=== PATIENT | male | born 1950 | race Hispanic/Latino ===

== ENCOUNTER 2017-12-12 06:52 | Inpatient (IN) | payer MEDICARE ==
[2017-12-12 07:04] VITALS: BMI 29.2
--- NOTE | 2017-12-12 07:56 | ED PDOC ---
Arrival/HPI - General Chief Complaint: Lower Extremity Problem/Injury Time Seen by Provider: 12/12/17 07:18 Historian: Patient, Partner () - History of Present Illness Narrative History of Present Illness (Text): 12/12/17 07:40 A 67 year old male, whose past medical history includes hypertension, questionable COPD, CHF (2 water pills daily), pacemaker, and atrial fibrillation (took Coumadin, switched to Eliquis), whom is accompanied by , presents to the emergency department complaining of right leg redness and swelling for 2 weeks. Patient reports having fallen 11/29/17. Had noticed drainage to right leg 2 weeks ago. Patient experiences pain when ambulating, and has recently had diarrhea. Patient's notes patient experiences shortness of breath at baseline and had pacemaker readjusted yesterday. Patient denies any fever, chills, nausea, vomiting, myalgias, or any other complaints at this time. PMD: Dr. Knott [place] Head Counselor: Dr. Quijano Time/Duration: > week (2 weeks) Symptom Course: Unchanged Past Medical History - Provider Review Nursing Documentation Reviewed: Yes - Cardiac Hx Congestive Heart Failure: Yes Hx Hypertension: Yes - Psychiatric Hx Substance Use: No - Surgical History Hx Orthopedic Surgery: Yes (LEFT HIP, RIGHT KNEE) - Anesthesia Hx Anesthesia Reactions: No - Suicidal Assessment Feels Threatened In Home Enviroment: No Family/Social History - Physician Review Nursing Documentation Reviewed: Yes Family/Social History: No Known Family HX Smoking Status: Former Smoker Hx Alcohol Use: Yes Frequency of alcohol use: Daily Hx Substance Use: No Allergies/Home Meds Allergies/Adverse Reactions: Allergies Penicillins Allergy (Mild, Verified 12/12/17 07:48) ANAPHYLAXIS Home Medications: Home Meds Medication Instructions Recorded Confirmed Carvedilol 25 mg PO BID 08/11/14 12/12/17 Valsartan-Hydrochlorothiazide 12.5 1 tab PO DAILY 08/11/14 12/12/17 mg-320 mg Apixaban [Eliquis] 5 mg PO DAILY 12/12/17 12/12/17 Cholecalciferol [Vitamin D 1000 IU] 50,000 mg PO DAILY 12/12/17 12/12/17 Furosemide [Lasix] 40 mg PO BID 12/12/17 12/12/17 oxyCODONE/Acetaminophen [Percocet 5 mg PO TID PRN 12/12/17 12/12/17 5/325 mg Tab] Review of Systems - Physician Review All systems were reviewed & negative as marked: Yes - Review of Systems Constitutional: absent: Fevers, Night Sweats Gastrointestinal: Diarrhea. absent: Nausea, Vomiting Musculoskeletal: Other (bilateral leg swelling and redness (ulcer drainage to right leg; ulcer to left leg s/p injury)). absent: Myalgias Physical Exam Vital Signs Reviewed: Yes Vital Signs Temp Pulse Resp BP Pulse Ox 12/12/17 09:50 97.9 F 72 16 106/70 100 12/12/17 07:08 97 F L 92 H 16 108/50 L 98 Temperature: Afebrile Blood Pressure: Normal Pulse: Regular Respiratory Rate: Normal Appearance: Positive for: Well-Appearing Pain Distress: None Mental Status: Positive for: Alert and Oriented X 3 - Systems Exam Head: Present: Atraumatic, Normocephalic Pupils: Present: PERRL Extroacular Muscles: Present: EOMI Mouth: Present: Moist Mucous Membranes Respiratory/Chest: Present: Clear to Auscultation, Good Air Exchange. No: Respiratory Distress, Accessory Muscle Use Cardiovascular: Present: Regular Rate and Rhythm, Normal S1, S2. No: Murmurs Abdomen: No: Tenderness, Distention, Peritoneal Signs Back: Present: Normal Inspection. No: Midline Tenderness Upper Extremity: Present: Normal Inspection. No: Cyanosis, Edema Lower Extremity: Present: Edema (bilaterally lower legs), NORMAL PULSES (+2 pedal pulses), Tenderness (warmth tenderness to right lower leg), Erythema ( right lower leg), Other (1 1/2 cm ulcer to right riggins; heeled ulcer to left leg) Neurological: Present: GCS=15, CN II-XII Intact, Speech Normal Skin: Present: Warm Psychiatric: Present: Alert, Oriented x 3, Normal Insight, Normal Concentration Medical Decision Making ED Course and Treatment: 12/12/17 07:45 Impression: 67 year old male with right leg swelling and redness. Differential Diagnosis included but are not limited to: Cellulitis r/o DVT r/o Fracture Plan: -- EKG -- Chest X-ray -- Lower Extremity Ultrasound -- Right Tibia Fibula X-Ray -- Labs -- Blood Culture -- Urine Culture -- Urinalysis -- Vancomycin -- Venous Blood Gas -- Reassess and disposition Progress Notes: EKG: Ordered, reviewed, and independently interpreted the EKG. Rate : 70 BPM Rhythm : NSR Interpretation : No ST-segment elevations or depressions, no T-wave inversions, normal intervals. Comparison : No previous EKG for comparison. 12/12/17 09:11 Labs reviewed. VBG shows elevated pCO2 most likely to due COPD and retention. Patient is not in respiratory distress and is not complaining of SOB. 12/12/17 09:18 Lower Extremity Ultrasound is negative. 12/12/2017 09:41 Right Tibia Fibula X-Ray IMPRESSION: No fracture or dislocation. Intact appearing total knee prosthesis. Subcutaneous reiculated edema consistent with lymphedema-correlate clinically. Dictator: Denise Simpson MD 12/12/17 09:53 Patient's labs reviwed. WBC nl. Patient's US negative for DVT. No fracture on xray. Considering pt has multiple medical comorbidites and a right cellulitis of his leg with weeping wound, I would recommend IV antibiotics. Case discussed with Dr. Robledo, whom states to admit patient to med surgical floor. - Lab Interpretations Lab Results: 12/12/17 08:00 12/12/17 08:00 Lab Results 12/12/17 08:00: Sodium 134, Chloride 87 L, Potassium 3.6, Carbon Dioxide 39 H, Anion Gap 12, BUN 29 H, Creatinine 1.1, Est GFR ( Amer) > 60, Est GFR ( Non-Af Amer) > 60, Random Glucose 114 H, Calcium 8.9, Phosphorus 3.1, Magnesium 2.3 H, Total Bilirubin 1.2, AST 37, ALT 43, Alkaline Phosphatase 144 H, Total Protein 6.3, Albumin 3.3, Globulin 2.9, Albumin/Globulin Ratio 1.1 12/12/17 08:00: pO2 21 L, VBG pH 7.36, VBG pCO2 77.0 H*, VBG HCO3 43.5 H, VBG Total CO2 45.9 H, VBG O2 Sat (Calc) 34.4 L, VBG Base Excess 14.3 H, VBG Potassium 3.8, Sodium 130.0 L, Chloride 90.0 L, Glucose 108, Lactate 1.3, FiO2 21.0, Venous Blood Potassium 3.8 12/12/17 08:00: Urine Color Yellow, Urine Appearance Clear, Urine pH 6.0, Ur Specific [place] 1.010, Urine Protein Trace H, Urine Glucose (UA) Negative, Urine Ketones Negative, Urine Blood Negative, Urine Nitrate Negative, Urine Bilirubin Negative, Urine Urobilinogen 1.0 H, Ur Leukocyte Esterase Negative, Urine RBC Negative, Urine WBC 1 - 3, Ur Epithelial Cells 1 - 3, Urine Bacteria Few 12/12/17 08:00: PT 17.6 H, INR 1.52 H, APTT 33.5 12/12/17 08:00: WBC 9.9, RBC 4.38, Hgb 13.6 L, Hct 41.9 L, MCV 95.7, MCH 31.1, MCHC 32.5, RDW 14.6 H, Plt Count 198, MPV 10.0, Gran % 86.6 H, Lymph % (Auto) 7.2 L, [place] % (Auto) 5.7, Eos % (Auto) 0.4 L, Baso % (Auto) 0.1, Gran # 8.60 H, Lymph # (Auto) 0.7 L, [place] # (Auto) 0.6, Eos # (Auto) 0.0, Baso # (Auto) 0.01 I have reviewed the lab results: Yes - RAD Interpretation Radiology Orders: 12/12/17 08:03 CHEST PORTABLE [RAD] Stat 12/12/17 08:05 TIBIA FIBULA RIGHT [RAD] Stat DUPLEX LOWER EXTRM VEIN BILAT [US] Stat - Medication Orders Current Medication Orders: Discontinued Medications Vancomycin HCl (Vancomycin 1gm) 1 gm in 250 mls @ 167 mls/hr IVPB STAT STA PRN Reason: Protocol Stop: 12/12/17 09:32 Last Admin: 12/12/17 08:17 Dose: 167 mls/hr eMAR Start Stop Document 12/12/17 08:17 MS (Rec: 12/12/17 08:17 MS [id number]) Intravenous Solution Start Date 12/12/17 Start Time 08:17 - Scribe Statement The provider has reviewed the documentation as recorded by the Rocio Phelps Provider Scribe Attestation: All medical record entries made by the Scribe were at my direction and personally dictated by me. I have reviewed the chart and agree that the record accurately reflects my personal performance of the history, physical exam, medical decision making, and the department course for this patient. I have also personally directed, reviewed, and agree with the discharge instructions and disposition. Disposition/Present on Arrival - Present on Arrival Any Indicators Present on Arrival: No History of DVT/PE: No History of Uncontrolled Diabetes: No Urinary Catheter: No History of Decub. Ulcer: No History Surgical Site Infection Following: None - Disposition Have Diagnosis and Disposition been Completed?: Yes Diagnosis: Cellulitis Disposition: HOSPITALIZED Disposition Time: 09:13 Patient Plan: Admission Patient Problems: Current Active Problems Problem Status Onset Cellulitis Acute Condition: FAIR
[2017-12-12] MEDS ORDERED: Vancomycin 1gm in NS 250ml 1 GM/250 ML BAG IVPB STA (08:03)
[2017-12-12 08:35] LABS: VENOUS BLOOD GAS BASE EXCESS 14.3 mmol/L (0.0-2.0); VENOUS BLOOD GAS PO2 21 mm/Hg (30-55); VENOUS BLOOD PH 7.36 (7.32-7.43)
[2017-12-12 08:38] LABS: BASO # 0.01 K/mm3 (0.0-2.0); BASO % 0.1 % (0.0-3.0); EOS % 0.4 % (1.5-5.0); GRAN # 8.6 (1.4-6.5); GRAN % 86.6 % (50.0-68.0); HEMOGLOBIN 13.6 g/dL (14.0-18.0); LYMPH # 0.7 (1.2-3.4); LYMPH % 7.2 % (22.0-35.0); MEAN CELL VOLUME 95.7 fl (80.0-105.0); MEAN CORPUSCULAR HEMOGLOBIN 31.1 pg (25.0-35.0); MEAN CORPUSCULAR HGB CONC 32.5 g/dl (31.0-37.0); MONO # 0.6 (0.1-0.6); MONO % 5.7 % (1.0-6.0); RBC 4.38 10^6/uL (3.5-6.1); RED CELL DISTRIBUTION WIDTH 14.6 % (11.5-14.5); URINE APPEARANCE CLEAR (CLEAR); URINE BILIRUBIN NEGATIVE (NEGATIVE); URINE BLOOD NEGATIVE (NEGATIVE); URINE COLOR YELLOW (YELLOW); URINE GLUCOSE (UA) NEGATIVE (NEGATIVE); URINE LEUKOCYTE ESTERASE NEGATIVE Leu/uL (NEGATIVE); URINE PROTEIN TRACE mg/dL (<30 mg/dL); WHITE BLOOD COUNT 9.9 10^3/ul (4.5-11.0)
[2017-12-12 08:45] LABS: INR 1.52 (0.93-1.08); PARTIAL THROMBOPLASTIN TIME 33.5 Seconds (25.1-36.5); PROTHROMBIN TIME 17.6 SECONDS (9.4-12.5)
[2017-12-12 08:47] LABS: URINE BACTERIA FEW (NEG); URINE RBC NEGATIVE /hpf (0-2)
[2017-12-12 08:54] LABS: ALB/GLOB RATIO 1.1 (1.1-1.8); ALBUMIN 3.3 g/dL (3.0-4.8); ALT/SGPT 43 U/L (7-56); AST/SGOT 37 U/L (17-59); BLOOD UREA NITROGEN 29 mg/dL (7-21); CALCIUM 8.9 mg/dL (8.4-10.5); GFR AFRICAN-AMERICAN > 60; GFR NON-AFRICAN AMERICAN > 60
--- NOTE | 2017-12-12 09:43 | RAD ---
PROCEDURE: Radiographs of the right tibia and fibula. HISTORY: fall r/o fx COMPARISON: None available. TECHNIQUE: Frontal and lateral views obtained. FINDINGS: BONES: No fracture or destructive lesion. Total knee arthroplasty status noted -prosthesis appears intact. JOINT SPACES: Unremarkable. OTHER FINDINGS: Diffuse subcutaneous reticulated edema distal thigh and upper leg - diffuse appearing. Atherosclerotic vascular calcifications present. . IMPRESSION: No fracture or dislocation. Intact appearing total knee prosthesis. Subcutaneous reticulated edema consistent with lymphedema -correlate clinically
--- NOTE | 2017-12-12 09:53 | RAD ---
HISTORY: Sepsis Patient COMPARISON: No prior. FINDINGS: LUNGS: Study is an apical lordotic view. Asymmetrical opacity projects over the lateral right mid lung zone. There is overlying right rib fractures here pole probably chronic appearing for subacute to chronic appearing contiguous pleural parenchymal thickening reaction associated with these right rib fractures is a consideration. No comparison studies to assess stability available. A concomitant right infiltrate here not excluded in this patient with history of sepsis. There is some suggestion of possible old right rib fractures here PLEURA: No significant pleural effusion identified, no pneumothorax apparent. Right mid lung zone or parenchymal thickening reaction status of right rib fractures detailed above noted. CARDIOVASCULAR: Cardiomegaly. AICD pacemaker device in place. Pulmonary vasculature probably top-normal. OSSEOUS STRUCTURES: Multiple right rib fractures -per lateral cortices -trace cortical offset suggested precise chronicity of these fractures not known. Correlate with history VISUALIZED UPPER ABDOMEN: Normal. OTHER FINDINGS: None. IMPRESSION: Cardiomegaly pulmonary vasculature probably top-normal. AICD pacemaker device in place and unremarkable appearing. Right lateral mid lung zone opacity projects over multiple right rib fractures - likely in part subacute and/or chronic. Contiguous right pleural reaction/ thickening associated with these fractures is inferred. Additional concomitant pathology here like infiltrate not excluded. No comparison studies available. . If further evaluation is needed consider CT of the chest
[2017-12-12 10:06] LABS: ARTERIAL BLOOD GAS HCO3 34.2 mmol/L (21-28); ARTERIAL BLOOD GAS HEMOGLOBIN 12.6 g/dL (11.7-17.4); ARTERIAL BLOOD GAS O2 CAPACITY 17.2 mL/dl (16-24); ARTERIAL BLOOD GAS O2 CONTENT 16.7 ML/dl (15-23); ARTERIAL BLOOD GAS PCO2 47 mm/Hg (35-45); ARTERIAL BLOOD GAS PH 7.47 (7.35-7.45); ARTERIAL BLOOD GAS TCO2 35.6 mmol.L (22-28)
--- NOTE | 2017-12-12 11:29 | US ---
PROCEDURE: Bilateral lower extremity venous duplex Doppler. HISTORY: leg swelling r/o dvt COMPARISON: None available. TECHNIQUE: Bilateral common femoral, superficial femoral, popliteal and posterior tibial veins were evaluated. Flow was assessed with color Doppler, compressibility, assessment of phasic flow and augmentation response. FINDINGS: COMMON FEMORAL VEIN: Right CFV: Unremarkable. Left CFV: Unremarkable. SUPERFICIAL FEMORAL VEIN: Right SFV: Unremarkable. Left SFV: Unremarkable. POPLITEAL VEIN: Right Popliteal: Unremarkable. Left Popliteal: Unremarkable. POSTERIOR TIBIAL VEIN: Right PTV/Peroneal Vein: Unremarkable. Left PTV: Unremarkable. OTHER FINDINGS: None. IMPRESSION: No evidence of deep venous thrombosis.
[2017-12-12] MEDS: Oxycodone/Acetaminophen 5/325 mg Tab PO PRN (18:58)
--- NOTE | 2017-12-12 19:05 | CARD ---
APPROVED REPORT EKG Measurement Heart [id number] <Conclusion> Electronic ventricular pacemaker
--- NOTE | 2017-12-12 19:19 | CARD ---
APPROVED REPORT EKG Measurement Heart [id number] <Conclusion> Electronic ventricular pacemaker
[2017-12-13] MEDS: Oxycodone/Acetaminophen 5/325 mg Tab PO PRN ×4 (00:47→22:19)
--- NOTE | 2017-12-13 09:47 | CARD ---
APPROVED REPORT EXAM: Two-dimensional and M-mode echocardiogram with Doppler and color Doppler. Other Information Quality : AverageRhythm : INDICATION Cardiomyopathy Congestive Heart Failure , CHF/CELLULITIS 2D DIMENSIONS RVDd4.6 (2.9-3.5cm)Left Atrium (2D)4.5 (1.6-4.0cm) IVSd1.1 (0.7-1.1cm)LVDd6.8 (3.9-5.9cm) PWd1.1 (0.7-1.1cm)LVDs6.1 (2.5-4.0cm) FS (%) 9.5 %LVEF (%)20.0 (>50%) M-Mode DIMENSIONS Aortic Root3.50 (2.2-3.7cm)Aortic Cusp Exc.1.70 (1.5-2.0cm) Aortic Valve AoV Peak Mqwyqsnk285.0cm/sAoV VTI33.4cmAO Peak GR.12mmHg LVOT Peak Hvgykbiy96.0cm/sLVOT VTI13.90cmAO Mean GR.7mmHg Mitral Valve E/A ratio0.0 TDI E/Lateral E'0.0E/Medial E'0.0 Pulmonary Valve PV Peak Nsrbtkpp51.8cm/sPV Peak Grad.3mmHg Tricuspid Valve TR Peak Vsboxkyw705ma/sRAP [id number] Peak Gr.53mmHg [id number] LEFT VENTRICLE The Left Ventricle is moderately dilated. There is normal left ventricular wall thickness. Left ventricle systolic function is severely impaired. The Ejection Fraction is - 20% There is severe global hypokinesis. RIGHT VENTRICLE The right ventricle is mildly to moderately dilated. There is a pacemaker lead in the right ventricle. ATRIA The left atrium is moderately dilated. The right atrium is moderately dilated. The interatrial septum is intact with no evidence for an atrial septal defect. AORTIC VALVE The aortic valve is mildly to moderately calcified. MITRAL VALVE The mitral valve is normal in structure. Mitral regurgitation is mild. TRICUSPID VALVE The tricuspid valve is normal in structure. There is severe tricuspid regurgitation. There is severe pulmonary hypertension. PULMONIC VALVE The pulmonary valve is normal in structure. GREAT VESSELS The aortic root is normal in size. PERICARDIAL EFFUSION There is no pericardial effusion. <Conclusion> The Left Ventricle is moderately dilated. There is normal left ventricular wall thickness. Left ventricle systolic function is severely impaired. The Ejection Fraction is - 20% There is severe global hypokinesis. The aortic valve is mildly to moderately calcified. Aortic sclerosis vs. mild . Mitral regurgitation is mild. There is severe tricuspid regurgitation. There is severe pulmonary hypertension.
[2017-12-13] MEDS: Linezolid 600 mg in D5W 300 ml 600 MG/300 ML BAG IVPB SCH ×2 (11:01→22:20)
[2017-12-13] MEDS: Potassium Chloride 20 mEq ER Tab PO SCH ×2 (11:03→17:09)
[2017-12-13] MEDS: Albuterol 0.083% Inhal Sol (2.5 mg/3 mL) UD INH SCH ×3 (11:17→21:40)
--- NOTE | 2017-12-13 11:45 | CON ---
DATE: 12/13/2017 INDICATIONS: Lower extremity swelling with weeping, possibly infected wounds; congestive cardiomyopathy. HISTORY OF PRESENT ILLNESS: This is a 67-year-old man, known to me, who presented to the office on the with a swollen worsening right leg which was reddened and had fluid draining from breaks in the skin. He was advised admission and came to the hospital on the . He is admitted through the emergency room. He was cultured and received a dose of vancomycin. Wounds have been bandaged. There is no chest pain, shortness of breath. He does note chronic dyspnea on exertion. There is no orthopnea, PND, syncope, presyncope, lightheadedness, dizziness, vertigo, palpitation. There is no fever, chills, cough, sputum production, hemoptysis, abdominal pain, nausea, vomiting, diarrhea, constipation, melena. PAST MEDICAL HISTORY: Notable for congestive cardiomyopathy, possibly alcohol related; chronic AFib, currently on Eliquis; hypertension; prostate cancer with seed implants. He has an ICD implant. He has a total knee replacement, cataracts, erectile dysfunction. He continues to drink beer intermittently. There is no history of rheumatic fever, myocardial infarction, stroke, TIA, diabetes, or gout. MEDICATIONS AT THE TIME OF ADMISSION: Include Coreg, valsartan and HCT, Eliquis, furosemide, Percocet, vitamin D and amiodarone. ALLERGIES: HE NOTES AN ALLERGY TO PENICILLIN. SOCIAL HISTORY: He lives at home. He is retired. He is ambulatory, but limited. He does not smoke. He continues to drink beer, but much less than in the past. FAMILY HISTORY: Noncontributory. REVIEW OF SYSTEMS: A 10-point review of systems is otherwise unremarkable except as noted above. PHYSICAL EXAMINATION GENERAL: He is a well-developed male, in no acute distress, lying in bed on 5R. He was also seen in the emergency room yesterday. VITAL SIGNS: Today include pulse of 78, blood pressure 113/68, afebrile, respirations 20, O2 sat 96% to 97% on room air. HEENT: Reveals some neck vein distention. No thyromegaly, no carotid bruit appreciated. Mucous membranes moist. Conjunctivae pink. NECK: Supple. LUNGS: Lung kennedy, a few scattered rhonchi. HEART: Reveals normal first and second heart sounds. ABDOMEN: Soft. Bowel sounds present. No mass, organomegaly, tenderness, rebound or guarding. EXTREMITIES: Revealed a swollen reddened right leg with serous fluid from breaks in the skin. There is a superficial non-healed wound on the left riggins. NEUROLOGIC: He was awake, alert, and oriented. PSYCHIATRIC: Normal as to mood and affect. SKIN: Warm and dry. LABORATORY AND IMAGING: A chest x-ray revealed cardiomegaly, etc. An EKG demonstrates ventricular pacing. Extremity ultrasound revealed no DVT. X-ray of the leg revealed no fracture or dislocation, etc. White count normal, hemoglobin of 13.6, hematocrit 41.9, platelet count 198,000. PT 17.6, INR 1.52, PTT 33.5. Blood gas is noted. Electrolytes, BUN and creatinine unremarkable. Blood sugar 114, magnesium 2.3. LFTs unremarkable. Procalcitonin elevated at 1.33. Urinalysis noted. IMPRESSION: Richard Rajput is a 67-year-old man with congestive cardiomyopathy, chronic atrial fibrillation, implantable cardioverter defibrillator implant, history of prostate cancer and hypertension with a total knee replacement, admitted with a swollen right leg with serous drainage, rule out cellulitis, which has been progressive over the course of several weeks. PLAN: He is admitted to . I have discussed the case with Dr. Mccormack. He is being cultured. I will get an ID consultation. A Podiatry consultation is ordered. His leg has been bandaged. There are frequent dressing changes. I will continue his cardiac medications including amiodarone, Coreg, losartan as a replacement for valsartan, Eliquis, Lasix. He got a dose of vancomycin. I will review his old records. I will get an echocardiogram to update his current LV function. We will give him his Lasix intravenously and monitor I's and O's. We will check stool for occult blood. He will get physical therapy as tolerated. I will follow along with you. I will make additional recommendations based on his clinical course. Kike Meyer MD [facility] # [id number] JOLENE
--- NOTE | 2017-12-13 12:33 | CP.PCM.CON ---
History of Present Illness - History of Present Illness History of Present Illness: 67 year old male with PMH of HTN, COPD, S/P pacemaker placement, chronic atrial fibrillation on anticoagulation, S/P right knee replacement, chronic CHF came in to [facility] [place] complaining of worsening right leg swelling for the past 2 weeks, worse in the last 2-3 days. He noticed serous drainage as well from the leg and developed a small wound on the medial side of the leg. He has a pet cat which occasionally brushes on his right leg but no scratches, although he did sustain a scratch with cellulitis a year ago from his cat on the left leg. He was also told by his doctors that he has poor circulation in his lower extremities. He denies soaking his feet in water. He denies fever or chills, no pus or bleeding from the leg, no nausea or vomiting, no chest pain, no SOB, no headache or dizziness, no cough or colds, no abdominal pain, no diarrhea, no dysuria. Infectious diseases consult is requested to further evaluate and manage. Review of Systems - Review of Systems All systems: reviewed and no additional remarkable complaints except (as per HPI ) Past Patient History - Past Social History Smoking Status: Never Smoked - CARDIAC Hx Cardiac Disorders: Yes Hx Cardia Arrhythmia: Yes (A Fib) Hx Circulatory Problems: Yes Hx Congestive Heart Failure: Yes Hx Hypertension: Yes Hx Internal Defibrillator: Yes Hx Pacemaker: Yes Hx Peripheral Edema: Yes Hx Peripheral Vascular Disease: Yes - PULMONARY Hx Respiratory Disorders: No Hx Sleep Apnea: Yes (suspected/not tested yet) - NEUROLOGICAL Hx Neurological Disorder: No - HEENT Hx HEENT Problems: No - RENAL Hx Chronic Kidney Disease: No - HEMATOLOGICAL/ONCOLOGICAL Hx Blood Disorders: No - MUSCULOSKELETAL/RHEUMATOLOGICAL Hx Musculoskeletal Disorders: Yes Hx Degenerative Joint Disease: Yes Hx Falls: Yes (fell 11/29/17) Hx Unsteady Gait: Yes - GASTROINTESTINAL Hx Gastrointestinal Disorders: No - GENITOURINARY/GYNECOLOGICAL Hx Prostate Problems: Yes (Seeds in prostate) - PSYCHIATRIC Hx Psychophysiologic Disorder: No - SURGICAL HISTORY Hx Surgeries: Yes Hx Joint Replacement: Yes (right knee left hip) - ANESTHESIA Hx Anesthesia Reactions: No Meds Allergies/Adverse Reactions: Allergies Allergy/AdvReac Type Severity Reaction Status Date / Time Penicillins Allergy Mild ANAPHYLAXIS Verified 12/12/17 07:48 - Medications Medications: Current Medications Acetaminophen (Tylenol 325mg Tab) 650 mg PO Q4H PRN PRN Reason: Fever >100.5 F Albuterol Sulfate (Albuterol 0.083% Inhal Leticia (2.5 Mg/3 Ml) Ud) 2.5 mg INH TIDRESP KELLY Amiodarone HCl (Cordarone) 200 mg PO DAILY [facility] Apixaban (Eliquis) 5 mg PO BID [facility] PRN Reason: Protocol Last Admin: 12/12/17 18:49 Dose: 5 mg Carvedilol (Coreg) 25 mg PO BID [facility] Last Admin: 12/12/17 18:49 Dose: Not Given Furosemide (Lasix) 40 mg IVP DAILY [facility] Last Admin: 12/12/17 14:11 Dose: 40 mg Losartan Potassium (Cozaar) 100 mg PO DAILY [facility] Last Admin: 12/12/17 12:49 Dose: Not Given Oxycodone/Acetaminophen (Percocet 5/325 Mg Tab) 1 tab PO TID PRN PRN Reason: Pain, moderate (4-7) Stop: 12/15/17 18:01 Last Admin: 12/13/17 08:27 Dose: 1 tab Potassium Chloride (K-Dur 20 Meq Er Tab) 20 meq PO BID [facility] Physical Exam - Constitutional Appears: Chronically Ill - Head Exam Head Exam: NORMAL INSPECTION - ENT Exam ENT Exam: Mucous Membranes Moist - Neck Exam Neck exam: Negative for: Meningismus - Respiratory Exam Respiratory Exam: Decreased Breath Sounds - Cardiovascular Exam Cardiovascular Exam: +S1, +S2 - GI/Abdominal Exam GI & Abdominal Exam: Soft. absent: Tenderness - Extremities Exam Additional comments: right leg with dressings in place Results - Vital Signs Recent Vital Signs: Last Vital Signs Temp 98.2 F 12/13/17 06:00 Pulse 78 12/13/17 06:00 Resp 20 12/13/17 06:00 BP 113/68 12/13/17 06:00 Pulse Ox 96 12/13/17 06:00 - Labs Result Diagrams: 12/12/17 08:00 12/12/17 08:00 Labs: Laboratory Results - last 24 hr 12/12/17 10:00 pCO2 47 H pO2 76.0 L HCO3 34.2 H ABG pH 7.47 H ABG Total CO2 35.6 H ABG O2 Saturation 97.0 ABG O2 Content 16.7 ABG Base Excess 9.2 H ABG Hemoglobin 12.6 ABG Carboxyhemoglobin 2.2 H POC ABG HHb (Measured) 2.9 ABG Methemoglobin 1.0 ABG O2 Capacity 17.2 Hgb O2 Saturation 94.0 L FiO2 21.0 Assessment & Plan - Assessment and Plan (Free Text) Plan: Assessment Consider right leg skin and skin structure infection HTN COPD S/P pacemaker placement chronic atrial fibrillation on anticoagulation S/P right knee replacement chronic CHF Plan Started Zyvox and Azactam and will follow up blood, wound cx; no DVT on duplex U /S - will get JANELLE's follow up further recommendations of Podiatry will monitor clinically
[2017-12-13] MEDS: Aztreonam 1 Gm in NS 100mL 100 ML IVPB SCH ×2 (15:25→21:22)
--- NOTE | 2017-12-13 19:12 | HP ---
CHIEF COMPLAINT AND HISTORY OF PRESENT ILLNESS: This is a 67-year-old male who is coming to the hospital complaining of right lower leg erythema. The patient says that he has been having worsening lower extremity edema. He has a past medical history of hypertension, COPD, CHF, pacemaker, atrial fibrillation on anticoagulation. 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 Meyer, who advised him to come to the ER for further evaluation. Apparently, the patient had a fall about 2 weeks ago. He started noticing that there was drainage coming from the right leg. He has no complaints of any abdominal pain, no back pain, no dysuria or frequency, no nocturia. No weakness in the arms or the legs. No chest pain. No fever or chills. No nausea, no vomiting. REVIEW OF SYMPTOMS: All other review of symptoms are within normal limits except that was mentioned. ALLERGIES: NO KNOWN DRUG ALLERGIES. HOME MEDICATIONS: He is on carvedilol, valsartan, Eliquis, vitamin D, Lasix, and Percocet. SOCIAL HISTORY: He is a former smoker. He does drink socially. FAMILY HISTORY: Noncontributory. PHYSICAL EXAMINATION: VITAL SIGNS: Temperature is 98.2, pulse is 78, blood pressure is 113/68, respirations 20, O2 saturation 96%. Height is 5 feet 11 inches, weight is 210 pounds, and BMI is 29. GENERAL: The patient lying in bed, uncomfortable, and in no acute distress. HEENT: Atraumatic and normocephalic. Anicteric sclerae. Moist mucosa. [place] conjunctivae. No oral lesions. NECK: No JVD, anterior and posterior adenopathy, thyromegaly, or bruits. CARDIOVASCULAR: S1 and S2 regular. No murmur, rubs, or gallop. LUNGS: Clear to auscultation bilaterally. No wheezes, rales, or rhonchi. ABDOMEN: Bowel sounds are positive. Soft, nontender and nondistended. No hepatosplenomegaly. No rebound and no guarding EXTREMITIES: No cyanosis, clubbing. He does have right leg erythema. In his left leg, there are chronic skin changes. There is an old scar from a scratch. There is a 3 cm circular non-healing ulcer, no drainage, no erythema. A 1+ edema. NEUROLOGIC: No facial asymmetry. Tongue is midline. No uvula deviation. Power is 5/5 upper extremity and lower extremity. Sensation intact in upper extremity and lower extremity. PSYCHIATRIC: He is awake, alert and oriented x3. No anxiety or depression. He has normal affect. GENITOURINARY: No CVA tenderness. VASCULAR: 2+ pulses in the carotid pulses and pedal pulses. SKIN: No erythema or nodules SPINE: Shows normal curvature. LABORATORY DATA: White count of 9.9, hemoglobin 13.6. INR is 1.5. The patient's ABG shows pH of 7.47, pCO2 of 47. Chemistry shows sodium 134, potassium is 3.6. Creatinine is 1.1. Procalcitonin is 1.3. Urine shows ketones are negative, nitrites are negative, esterases are negative. Chest x-ray done shows cardiomegaly, pulmonary vascular congestion, right lateral mid zone opacity projects over the multiple right rib fractures. EKG shows ventricular pacemaker. Right tibiofibular fracture, but no fracture or dislocation. ASSESSMENT: 1. Cellulitis. 2. Congestive heart failure, unknown type. 3. Atrial fibrillation, on anticoagulation. 4. Pacemaker. 5. Hypertension. 6. Chronic obstructive pulmonary disease. 7. Lower extremity edema. PLAN: The patient is currently comfortable. He has cellulitis in the right leg and also lesion in the left leg. I will get ID and Podiatry to see the patient. The patient is going to be on IV antibiotics. The patient is going to be on carvedilol. He is going to continue losartan for hypertension. He is on Lasix daily. The patient is on oxygen. He is going to continue with heart-healthy diet. The patient had blood cultures. Urine cultures have been ordered. He is going to get a heart-healthy diet. I did speak to the patient's to give her an update on the patient's diagnosis and plan of care. The patient also will be on Lasix for the lower extremity edema. Gerardo Mccormack MD
--- NOTE | 2017-12-13 19:41 | US ---
STUDY DESCRIPTION: HISTORY: rule out PVD PRIORS: None. TECHNIQUE: Pulse volume recording waveforms and segmental pressures of bilateral lower extremities at multiple levels were obtained. Ankle Brachial Indices (ABIs) were calculated. Report prepared by vascular sonographer. RIGHT LOWER EXTREMITY: * Brachial artery: Pressure - 86 mmHg. * High thigh: Pressure - 165 mmHg: Ratio - 1.83: PVR waveform - Pulsatile * Low thigh: Pressure - 126 mmHg: Ratio - 1.40 PVR waveform: Pulsatile * Calf: Pressure - 141 mmHg: Ratio - 1.57 PVR waveform: Pulsatile * Posterior tibial Artery: Pressure - 119 mmHg: Ratio - 1.32 PVR waveform: Pulsatile * Dorsalis pedis Artery: Pressure - 112 mmHg: Ratio - 1.24 PVR waveform: Pulsatile Ankle brachial index (JANELLE): 1.32 LEFT LOWER EXTREMITY: * Brachial artery: Pressure - 90 mmHg. * High thigh: Pressure - 188 mmHg: Ratio - 2.09: PVR waveform - Pulsatile * Low thigh: Pressure - 115 mmHg: Ratio - 1.2 a PVR waveform: Pulsatile * Calf: Pressure - >254 mmHg: Ratio - -NC- PVR waveform: Pulsatile * Posterior tibial Artery: Pressure - 123 mmHg: Ratio - 1.37 PVR waveform: Pulsatile * Dorsalis pedis Artery: Pressure - 118 mmHg: Ratio - 1.31 PVR waveform: Pulsatile Ankle brachial index (JANELLE): 1.37 OTHER FINDINGS: IMPRESSION: Right: There was no evidence of hemodynamically significant arterial insufficiency in the right lower extremity. Left: There was no evidence of hemodynamically significant arterial insufficiency in the left lower extremity.
[2017-12-14] MEDS: Aztreonam 1 Gm in NS 100mL 100 ML IVPB SCH (07:02)
[2017-12-14] MEDS: Albuterol 0.083% Inhal Sol (2.5 mg/3 mL) UD INH SCH ×3 (07:24→20:08)
[2017-12-14] MEDS: Oxycodone/Acetaminophen 5/325 mg Tab PO PRN ×3 (07:25→20:01)
[2017-12-14 07:48] LABS: BLOOD UREA NITROGEN 21 mg/dL (7-21); CALCIUM 8.5 mg/dL (8.4-10.5); GFR AFRICAN-AMERICAN > 60; GFR NON-AFRICAN AMERICAN > 60
[2017-12-14] MEDS ORDERED: Potassium Chloride 20 mEq ER Tab PO ONE (09:11)
[2017-12-14] MEDS: Linezolid 600 mg in D5W 300 ml 600 MG/300 ML BAG IVPB SCH ×2 (10:00→21:41)
[2017-12-14] MEDS: Potassium Chloride 20 mEq ER Tab PO SCH ×2 (10:01→17:44)
--- NOTE | 2017-12-14 11:45 | PN ---
DATE: 12/14/2017 SUBJECTIVE: The patient is seen lying in bed on 5R. His right leg is dressed. His foot edema is improved. He remains on IV antibiotics. He denies any dyspnea. CURRENT MEDICATIONS: Include albuterol inhaler, Azactam, amiodarone 200 mg daily, carvedilol 25 mg b.i.d., Cozaar 100 mg daily, Eliquis 5 mg b.i.d., Lasix 40 mg daily, potassium and Zyvox. OBJECTIVE GENERAL: He is a middle-aged man who appears comfortable at rest. VITAL SIGNS: His blood pressure is 122/80 with pulse of 78, respirations of 16. He is afebrile. HEENT: No JVD. CHEST: Bilateral scattered rhonchi. No rales noted. HEART: PMI displaced laterally with soft tones noted. ABDOMEN: Soft and nontender, normoactive bowel sounds. EXTREMITIES: Right leg is wrapped, diminished edema is noted. DIAGNOSTIC DATA: Potassium is 3.4, BUN and creatinine 21 and 0.8. IMPRESSION 1. Leg cellulitis, clinically improved. 2. Chronic congestive heart failure, systolic, appears compensated at present. 3. Chronic atrial fibrillation. 4. Severe left ventricular dysfunction. RECOMMENDATIONS: His current medications will be continued for now. An additional dose of potassium will be ordered for today. Repeat BMP in the morning will be scheduled as well. Continued local wound care and antibiotic therapy as advised. Continued sodium and fluid restriction are advised as well. We will continue to follow and make further recommendations as appropriate. Williams Moser MD
--- NOTE | 2017-12-14 12:46 | CP.PCM.PN ---
Subjective - Date & Time of Evaluation Date of Evaluation: 12/14/17 Time of Evaluation: 12:00 - Subjective Subjective: Comfortable, no fevers, less pain in the right leg, no nausea, no diarrhea. Objective - Vital Signs/Intake and Output Vital Signs (last 24 hours): Temp Pulse Resp BP Pulse Ox 97.5 F L 78 20 120/80 98 12/14/17 07:56 12/14/17 07:56 12/14/17 07:56 12/14/17 09:56 12/14/17 07:56 Intake and Output: 12/14/17 12/14/17 06:59 18:59 Intake Total 2059 Balance 2059 - Medications Medications: Current Medications Acetaminophen (Tylenol 325mg Tab) 650 mg PO Q4H PRN PRN Reason: Fever >100.5 F Albuterol Sulfate (Albuterol 0.083% Inhal Leticia (2.5 Mg/3 Ml) Ud) 2.5 mg INH TIDRESP [facility] Last Admin: 12/14/17 07:24 Dose: 2.5 mg Amiodarone HCl (Cordarone) 200 mg PO DAILY [facility] Last Admin: 12/14/17 09:55 Dose: 200 mg Apixaban (Eliquis) 5 mg PO BID [facility] PRN Reason: Protocol Last Admin: 12/14/17 09:55 Dose: 5 mg Carvedilol (Coreg) 25 mg PO BID [facility] Last Admin: 12/14/17 09:55 Dose: 25 mg Furosemide (Lasix) 40 mg IVP DAILY [facility] Last Admin: 12/14/17 09:56 Dose: 40 mg Linezolid (Zyvox 600mg/300ml D5w) 600 mg in 300 mls @ 200 mls/hr IVPB Q12 [facility] PRN Reason: Protocol Stop: 12/20/17 10:16 Last Admin: 12/14/17 10:00 Dose: 200 mls/hr Aztreonam (Azactam 1 Gm) 100 mls @ 100 mls/hr IVPB Q8 [facility] PRN Reason: Protocol Stop: 12/20/17 14:01 Last Admin: 12/14/17 07:02 Dose: 100 mls/hr Losartan Potassium (Cozaar) 100 mg PO DAILY [facility] Last Admin: 12/14/17 09:56 Dose: 100 mg Oxycodone/Acetaminophen (Percocet 5/325 Mg Tab) 1 tab PO TID PRN PRN Reason: Pain, moderate (4-7) Stop: 12/15/17 18:01 Last Admin: 12/14/17 07:25 Dose: 1 tab Potassium Chloride (K-Dur 20 Meq Er Tab) 20 meq PO BID [facility] Last Admin: 12/14/17 10:01 Dose: 20 meq - Labs Labs: 12/14/17 07:00 PT 17.6 SECONDS (9.4-12.5) H 12/12/17 08:00 INR 1.52 (0.93-1.08) H 12/12/17 08:00 APTT 33.5 Seconds (25.1-36.5) 12/12/17 08:00 - Constitutional Appears: Non-toxic, Chronically Ill - Head Exam Head Exam: NORMAL INSPECTION - Neck Exam Neck Exam: absent: Meningismus - Respiratory Exam Respiratory Exam: Decreased Breath Sounds - Cardiovascular Exam Cardiovascular Exam: +S1, +S2 - GI/Abdominal Exam GI & Abdominal Exam: Soft. absent: Tenderness - Extremities Exam Additional comments: right leg with dressings in place Assessment and Plan - Assessment and Plan (Free Text) Plan: Assessment Consider right leg skin and skin structure infection, growing Pseudomonas HTN COPD S/P pacemaker placement chronic atrial fibrillation on anticoagulation S/P right knee replacement chronic CHF Plan continue Zyvox and Azactam day 2; reviewed wound cx; no DVT on duplex U/S and JANELLE's are normal follow up further recommendations of Podiatry will continue to monitor clinically
[2017-12-14] MEDS: Aztreonam 2 Gm in NS 100mL 100 ML IVPB SCH ×2 (14:06→21:34)
--- NOTE | 2017-12-14 20:50 | CON ---
DATE: HISTORY OF PRESENT ILLNESS: A 67-year-old male seen at bedside for consultation, evaluation, and management of cellulitis to his right lower leg as well as a chronic nonhealing wound to his left lower leg. The patient states on his left leg he banged his leg approximately 1 month ago and the wound has not healed. He states that his right lower leg suddenly became red, hot, and swollen, and when he noticed that it was draining, he came to the hospital at the advice of his primary care doctor. PAST MEDICAL HISTORY: Significant for essential hypertension, chronic atrial fibrillation, cardiac disorders, cardiac arrhythmia, AFib, peripheral vascular disease. PAST SURGICAL HISTORY: Includes pacemaker placement, right knee surgery, left foot surgery, and prostate seeding. ALLERGIES: THE PATIENT IS ALLERGIC TO PENICILLIN. HOME MEDICATIONS: Include albuterol, Tylenol, Cordarone, Eliquis, Coreg, Lasix, Cozaar, Percocet, and potassium chloride. The patient's vital signs revealed a temperature of 97.5, pulse rate of 78, blood pressure of 122/81, respiratory rate of 20. LABORATORY DATA: Findings reveal a white count of 9.9, hemoglobin of 13.6, hematocrit of 41.9, platelet count of 198. Microbiology reports pseudomonal growth on the right leg. Venous Dopplers taken revealed no radiographic evidence of deep vein thrombosis. Bilateral arterial duplex reveals that there is no evidence of significant arterial insufficiency in either lower extremity. Right tib-fib x-rays reveal no fracture dislocation and the knee prosthesis is intact. PHYSICAL EXAMINATION: Palpable popliteal pulses, palpable pedal pulses noted bilaterally. The patient is able to detect 5.07 g monofilament wire testing bilaterally. Capillary filling time is within normal limits x10. There is noted to be a full-thickness ulceration on the left anterior lower leg distal to the tibial tuberosity that measures approximately 2.5 cm x 3 cm x 0.2 cm. The base of the ulcer is a mixture of fibrotic, granular, and necrotic tissue. There is no purulence. There is no drainage. There is no malodor. The wound does not probe to tendon or bone. There are no signs of acute bacterial infection. Right lower leg presents with edema and erythema of the entire leg. There is noted to be weeping and drainage coming out of the anterior aspect, central portion of the leg. The drainage is clear fluid. There is no pain upon gastrocnemius-soleus palpation. There is noted to be increased temperature gradient within the entire lower leg. ASSESSMENT: Right lower leg cellulitis, peripheral vascular disease, full-thickness left anterior lower leg ulceration. PLAN: The patient's legs were cleansed with normal sterile saline, new culture was taken of the fluid on the right leg. Application of Adaptic, Maxorb, and a dry sterile dressing was applied to the right lower leg with Eric wrap for light compression. The left lower leg ulceration was cleansed with normal sterile saline. We will apply Bactroban and Optifoam. Infectious Disease note was read and appreciated. We will continue with IV antibiotics as per Infectious Disease. The patient will be seen and followed daily for wound care. Demarco Coyne DPM JOLENE
[2017-12-15] MEDS: Oxycodone/Acetaminophen 5/325 mg Tab PO PRN ×3 (05:15→20:13)
[2017-12-15] MEDS: Aztreonam 2 Gm in NS 100mL 100 ML IVPB SCH ×3 (05:17→21:24)
[2017-12-15] MEDS: Albuterol 0.083% Inhal Sol (2.5 mg/3 mL) UD INH SCH ×3 (07:28→20:31)
[2017-12-15 07:38] LABS: BLOOD UREA NITROGEN 19 mg/dL (7-21); CALCIUM 8.8 mg/dL (8.4-10.5); GFR AFRICAN-AMERICAN > 60; GFR NON-AFRICAN AMERICAN > 60
[2017-12-15] MEDS: Potassium Chloride 20 mEq ER Tab PO SCH ×2 (10:46→18:03)
[2017-12-15] MEDS: Linezolid 600 mg in D5W 300 ml 600 MG/300 ML BAG IVPB SCH ×2 (10:53→21:25)
--- NOTE | 2017-12-15 12:26 | CP.PCM.PN ---
Subjective - Date & Time of Evaluation Date of Evaluation: 12/15/17 Time of Evaluation: 11:20 - Subjective Subjective: Comfortable, no fevers, not in distress, less pain in the right leg, no nausea or diarrhea. Objective - Vital Signs/Intake and Output Vital Signs (last 24 hours): Temp Pulse Resp BP Pulse Ox 97.6 F 58 L 20 109/70 96 12/15/17 06:00 12/15/17 06:00 12/15/17 06:00 12/15/17 06:00 12/15/17 06:00 Intake and Output: 12/15/17 12/15/17 06:59 18:59 Intake Total 1340 Output Total 1075 Balance 265 - Medications Medications: Current Medications Acetaminophen (Tylenol 325mg Tab) 650 mg PO Q4H PRN PRN Reason: Fever >100.5 F Albuterol Sulfate (Albuterol 0.083% Inhal Leticia (2.5 Mg/3 Ml) Ud) 2.5 mg INH TIDRESP [facility] Last Admin: 12/15/17 07:28 Dose: 2.5 mg Amiodarone HCl (Cordarone) 200 mg PO DAILY [facility] Last Admin: 12/14/17 09:55 Dose: 200 mg Apixaban (Eliquis) 5 mg PO BID [facility] PRN Reason: Protocol Last Admin: 12/14/17 17:44 Dose: 5 mg Carvedilol (Coreg) 25 mg PO BID [facility] Last Admin: 12/14/17 17:46 Dose: Not Given Furosemide (Lasix) 40 mg IVP DAILY [facility] Last Admin: 12/14/17 09:56 Dose: 40 mg Linezolid (Zyvox 600mg/300ml D5w) 600 mg in 300 mls @ 200 mls/hr IVPB Q12 [facility] PRN Reason: Protocol Stop: 12/20/17 10:16 Last Admin: 12/14/17 21:41 Dose: 200 mls/hr Aztreonam (Azactam 2 Gm) 100 mls @ 100 mls/hr IVPB Q8 [facility] PRN Reason: Protocol Stop: 12/21/17 14:01 Last Admin: 12/15/17 05:17 Dose: 100 mls/hr Losartan Potassium (Cozaar) 100 mg PO DAILY [facility] Last Admin: 12/14/17 09:56 Dose: 100 mg Oxycodone/Acetaminophen (Percocet 5/325 Mg Tab) 1 tab PO TID PRN PRN Reason: Pain, moderate (4-7) Stop: 12/15/17 18:01 Last Admin: 12/15/17 05:15 Dose: 1 tab Potassium Chloride (K-Dur 20 Meq Er Tab) 20 meq PO BID [facility] Last Admin: 12/14/17 17:44 Dose: 20 meq - Labs Labs: 12/15/17 06:30 PT 17.6 SECONDS (9.4-12.5) H 12/12/17 08:00 INR 1.52 (0.93-1.08) H 12/12/17 08:00 APTT 33.5 Seconds (25.1-36.5) 12/12/17 08:00 - Constitutional Appears: Non-toxic, Chronically Ill - Head Exam Head Exam: NORMAL INSPECTION - ENT Exam ENT Exam: Mucous Membranes Moist - Neck Exam Neck Exam: absent: Meningismus - Respiratory Exam Respiratory Exam: Decreased Breath Sounds - Cardiovascular Exam Cardiovascular Exam: +S1, +S2 - GI/Abdominal Exam GI & Abdominal Exam: Soft. absent: Tenderness - Extremities Exam Additional comments: right leg with dressings in place Assessment and Plan - Assessment and Plan (Free Text) Plan: Assessment Consider right leg skin and skin structure infection, growing Pseudomonas HTN COPD S/P pacemaker placement chronic atrial fibrillation on anticoagulation S/P right knee replacement chronic CHF Plan continue Zyvox and Azactam day 3; reviewed wound cx, follow up repeat wound cx results; no DVT on duplex U/S and JANELLE's are normal follow up further recommendations of Podiatry will continue to monitor clinically
--- NOTE | 2017-12-15 13:10 | CP.PCM.PN ---
Addendum entered and electronically signed by Shabana Blankenship DPM 12/15/17 13:19 : Collado grade 1. disregard grade 2. Original Note: <Shabana Blankenship - Last Filed: 12/15/17 13:02> Subjective - Date & Time of Evaluation Date of Evaluation: 12/15/17 Time of Evaluation: 13:02 - Subjective Subjective: Podiatry Progress note: Dr. Fernandez/Dr. Coyne 67 year old male seen and evaluated at bedside for bilateral leg wounds. Patient reports that the draining from the wounds has decreased a little since yesterday. Denies of any pain today. Denies of having any acute overnight events. Denies of F/N/V/C/SOB/CP/headache. Denies of any other complains at this time. Objective - Vital Signs/Intake and Output Vital Signs (last 24 hours): Temp Pulse Resp BP Pulse Ox 97.6 F 58 L 20 109/70 96 12/15/17 06:00 12/15/17 10:46 12/15/17 06:00 12/15/17 10:46 12/15/17 06:00 Intake and Output: 12/15/17 12/15/17 06:59 18:59 Intake Total 1340 Output Total 1075 Balance 265 - Medications Medications: Current Medications Acetaminophen (Tylenol 325mg Tab) 650 mg PO Q4H PRN PRN Reason: Fever >100.5 F Albuterol Sulfate (Albuterol 0.083% Inhal Leticia (2.5 Mg/3 Ml) Ud) 2.5 mg INH TIDRESP [facility] Last Admin: 12/15/17 07:28 Dose: 2.5 mg Amiodarone HCl (Cordarone) 200 mg PO DAILY [facility] Last Admin: 12/15/17 10:46 Dose: 200 mg Apixaban (Eliquis) 5 mg PO BID [facility] PRN Reason: Protocol Last Admin: 12/15/17 10:46 Dose: 5 mg Carvedilol (Coreg) 25 mg PO BID [facility] Last Admin: 12/15/17 10:46 Dose: 25 mg Furosemide (Lasix) 40 mg IVP DAILY [facility] Last Admin: 12/15/17 10:45 Dose: 40 mg Linezolid (Zyvox 600mg/300ml D5w) 600 mg in 300 mls @ 200 mls/hr IVPB Q12 [facility] PRN Reason: Protocol Stop: 12/20/17 10:16 Last Admin: 12/15/17 10:53 Dose: 200 mls/hr Aztreonam (Azactam 2 Gm) 100 mls @ 100 mls/hr IVPB Q8 [facility] PRN Reason: Protocol Stop: 12/21/17 14:01 Last Admin: 12/15/17 05:17 Dose: 100 mls/hr Losartan Potassium (Cozaar) 100 mg PO DAILY [facility] Last Admin: 12/15/17 10:45 Dose: 100 mg Oxycodone/Acetaminophen (Percocet 5/325 Mg Tab) 1 tab PO TID PRN PRN Reason: Pain, moderate (4-7) Stop: 12/15/17 18:01 Last Admin: 12/15/17 05:15 Dose: 1 tab Potassium Chloride (K-Dur 20 Meq Er Tab) 20 meq PO BID [facility] Last Admin: 12/15/17 10:46 Dose: 20 meq - Labs Labs: 12/15/17 06:30 PT 17.6 SECONDS (9.4-12.5) H 12/12/17 08:00 INR 1.52 (0.93-1.08) H 12/12/17 08:00 APTT 33.5 Seconds (25.1-36.5) 12/12/17 08:00 - Constitutional Appears: Well, Non-toxic, No Acute Distress - Extremities Exam Additional comments: Bilateral LE exam VASC: DP/PT pulses are palpable 1/4, Cap refill time: < 3 sec to all digits, Temp gradient: warm to warm from proximal to distal, 1+ pitting edema noted on the distal leg bilaterally DERM: Wound approx. the size of a quarter on the proximal medial aspect of the left leg, wound base is grannular with periwound erythema and hyperpigmentation , no serous drainage, no purulent drainage, no active bleeding, no increase in warmth, no clinical suspicion of active infection, 2 small superficial wound present on the distal aspect of the right leg, mild serous drainage, no purulent drainage, no tunneling, no undermining, no probe to bone, periwound erythema extending proximally to the knee joint, mild increase in warmth on bilateral legs NEURO: Protective sensation mildly diminished ORTHO: No pain on palpation of the ulcerated sites - Neurological Exam Neurological Exam: Alert, Awake, Oriented x3 - Psychiatric Exam Psychiatric exam: Normal Affect, Normal Mood Assessment and Plan - Assessment and Plan (Free Text) Assessment: 67 year old male with 1). collado grade 2 ulcer on bilateral legs 2). cellulitis on the right LE Plan: Patient seen and evaluated Discussed in details with attending Dr. Fernandez Afebrile, WBC @ 9.9 Wounds cleaned with saline and dressing applied using adaptic, maxorb, DSD, kerlix and MICH on the right and optifoam on the left Right leg Ccx: pending Left leg cx: pseudomonas species Continue abx as per ID - Aztreonam, Linezolid Podiatry to follow patient while in house <Jannie Fernandez - Last Filed: 12/16/17 13:48> Objective - Vital Signs/Intake and Output Vital Signs (last 24 hours): Temp Pulse Resp BP Pulse Ox 98.3 F 75 20 125/79 96 12/16/17 07:30 12/16/17 07:30 12/16/17 07:30 12/16/17 09:25 12/16/17 07:30 Intake and Output: 12/16/17 12/16/17 06:59 18:59 Intake Total 240 Balance 240 - Medications Medications: Current Medications Acetaminophen (Tylenol 325mg Tab) 650 mg PO Q4H PRN PRN Reason: Fever >100.5 F Albuterol Sulfate (Albuterol 0.083% Inhal Leticia (2.5 Mg/3 Ml) Ud) 2.5 mg INH TIDRESP [facility] Last Admin: 12/16/17 13:45 Dose: 2.5 mg Amiodarone HCl (Cordarone) 200 mg PO DAILY [facility] Last Admin: 12/16/17 09:28 Dose: 200 mg Apixaban (Eliquis) 5 mg PO BID [facility] PRN Reason: Protocol Last Admin: 12/16/17 09:28 Dose: 5 mg Carvedilol (Coreg) 25 mg PO BID [facility] Last Admin: 12/16/17 09:27 Dose: 25 mg Furosemide (Lasix) 40 mg IVP DAILY [facility] Last Admin: 12/16/17 09:25 Dose: 40 mg Linezolid (Zyvox 600mg/300ml D5w) 600 mg in 300 mls @ 200 mls/hr IVPB Q12 [facility] PRN Reason: Protocol Stop: 12/20/17 10:16 Last Admin: 12/16/17 09:30 Dose: 200 mls/hr Aztreonam (Azactam 2 Gm) 100 mls @ 100 mls/hr IVPB Q8 [facility] PRN Reason: Protocol Stop: 12/21/17 14:01 Last Admin: 12/16/17 05:50 Dose: 100 mls/hr Losartan Potassium (Cozaar) 100 mg PO DAILY [facility] Last Admin: 12/16/17 09:27 Dose: 100 mg Oxycodone/Acetaminophen (Percocet 5/325 Mg Tab) 1 tab PO TID PRN PRN Reason: MOD PAIN [4-7] Stop: 12/18/17 14:01 Last Admin: 12/16/17 09:55 Dose: 1 tab Potassium Chloride (K-Dur 20 Meq Er Tab) 20 meq PO BID [facility] Last Admin: 12/16/17 09:28 Dose: 20 meq - Labs Labs: 12/15/17 06:30 PT 17.6 SECONDS (9.4-12.5) H 12/12/17 08:00 INR 1.52 (0.93-1.08) H 12/12/17 08:00 APTT 33.5 Seconds (25.1-36.5) 12/12/17 08:00 Attending/Attestation - Attestation I have personally seen and examined this patient.: Yes I have fully participated in the care of the patient.: Yes I have reviewed all pertinent clinical information, including history, physical exam and plan: Yes
--- NOTE | 2017-12-15 20:01 | CP.PCM.PN ---
Subjective - Date & Time of Evaluation Date of Evaluation: 12/15/17 Time of Evaluation: 20:00 - Subjective Subjective: Patient was seen for his complaint of pain. States that he has chronic pain in low back pain and right hip . Percocet order has . He has no other complaints. Medical record was reviewed. This 67 year old white male was admitted with right lower leg redness and swelling, cellulitis. Has PMH of CHF, HTN, atrial fibrillation, COPD, S/P pacemaker insertion, former smoker, social drinker. Objective - Vital Signs/Intake and Output Vital Signs (last 24 hours): Temp Pulse Resp BP Pulse Ox 97.5 F L 90 20 100/70 98 12/15/17 14:00 12/15/17 18:03 12/15/17 14:00 12/15/17 18:03 12/15/17 14:00 Intake and Output: 12/15/17 12/16/17 18:59 06:59 Intake Total 940 Balance 940 - Medications Medications: Current Medications Acetaminophen (Tylenol 325mg Tab) 650 mg PO Q4H PRN PRN Reason: Fever >100.5 F Albuterol Sulfate (Albuterol 0.083% Inhal Leticia (2.5 Mg/3 Ml) Ud) 2.5 mg INH [facility] Last Admin: 12/15/17 13:38 Dose: 2.5 mg Amiodarone HCl (Cordarone) 200 mg PO DAILY [facility] Last Admin: 12/15/17 10:46 Dose: 200 mg Apixaban (Eliquis) 5 mg PO BID [facility] PRN Reason: Protocol Last Admin: 12/15/17 18:02 Dose: 5 mg Carvedilol (Coreg) 25 mg PO BID [facility] Last Admin: 12/15/17 18:03 Dose: 25 mg Furosemide (Lasix) 40 mg IVP DAILY [facility] Last Admin: 12/15/17 10:45 Dose: 40 mg Linezolid (Zyvox 600mg/300ml D5w) 600 mg in 300 mls @ 200 mls/hr IVPB Q12 [facility] PRN Reason: Protocol Stop: 12/20/17 10:16 Last Admin: 12/15/17 10:53 Dose: 200 mls/hr Aztreonam (Azactam 2 Gm) 100 mls @ 100 mls/hr IVPB Q8 [facility] PRN Reason: Protocol Stop: 12/21/17 14:01 Last Admin: 12/15/17 14:21 Dose: 100 mls/hr Losartan Potassium (Cozaar) 100 mg PO DAILY [facility] Last Admin: 12/15/17 10:45 Dose: 100 mg Potassium Chloride (K-Dur 20 Meq Er Tab) 20 meq PO BID [facility] Last Admin: 12/15/17 18:03 Dose: 20 meq - Labs Labs: 12/15/17 06:30 PT 17.6 SECONDS (9.4-12.5) H 12/12/17 08:00 INR 1.52 (0.93-1.08) H 12/12/17 08:00 APTT 33.5 Seconds (25.1-36.5) 12/12/17 08:00 Micro Results 12/14/17 08:39 Leg - Right Gram Stain - Final 12/14/17 08:39 Leg - Right Wound Culture - Preliminary Gram Negative Ankur Gram Positive Cocci 12/12/17 08:05 Blood Blood Culture - Preliminary NO GROWTH AFTER 3 DAYS 12/12/17 08:00 Blood Blood Culture - Preliminary NO GROWTH AFTER 3 DAYS 12/12/17 11:30 Leg - Right Gram Stain - Final 12/12/17 11:30 Leg - Right Wound Culture - Final Pseudomonas Aeruginosa 12/12/17 08:00 Urine Urine Culture - Final No Growth (<1,000 CFU/ML) Most Recent Lab Values WBC 9.9 10^3/ul (4.5-11.0) 12/12/17 08:00 RBC 4.38 10^6/uL (3.5-6.1) 12/12/17 08:00 Hgb 13.6 g/dL (14.0-18.0) L 12/12/17 08:00 Hct 41.9 % (42.0-52.0) L 12/12/17 08:00 MCV 95.7 fl (80.0-105.0) 12/12/17 08:00 MCH 31.1 pg (25.0-35.0) 12/12/17 08:00 MCHC 32.5 g/dl (31.0-37.0) 12/12/17 08:00 RDW 14.6 % (11.5-14.5) H 12/12/17 08:00 Plt Count 198 10^3/uL (120.0-450.0) 12/12/17 08:00 MPV 10.0 fl (7.0-11.0) 12/12/17 08:00 Gran % 86.6 % (50.0-68.0) H 12/12/17 08:00 Lymph % (Auto) 7.2 % (22.0-35.0) L 12/12/17 08:00 [place] % (Auto) 5.7 % (1.0-6.0) 12/12/17 08:00 Eos % (Auto) 0.4 % (1.5-5.0) L 12/12/17 08:00 Baso % (Auto) 0.1 % (0.0-3.0) 12/12/17 08:00 Gran # 8.60 (1.4-6.5) H 12/12/17 08:00 Lymph # (Auto) 0.7 (1.2-3.4) L 12/12/17 08:00 [place] # (Auto) 0.6 (0.1-0.6) 12/12/17 08:00 Eos # (Auto) 0.0 (0.0-0.7) 12/12/17 08:00 Baso # (Auto) 0.01 K/mm3 (0.0-2.0) 12/12/17 08:00 PT 17.6 SECONDS (9.4-12.5) H 12/12/17 08:00 INR 1.52 (0.93-1.08) H 12/12/17 08:00 APTT 33.5 Seconds (25.1-36.5) 12/12/17 08:00 pCO2 47 mm/Hg (35-45) H 12/12/17 10:00 pO2 76.0 mm/Hg (80-100) L 12/12/17 10:00 HCO3 34.2 mmol/L (21-28) H 12/12/17 10:00 ABG pH 7.47 (7.35-7.45) H 12/12/17 10:00 ABG Total CO2 35.6 mmol.L (22-28) H 12/12/17 10:00 ABG O2 Saturation 97.0 % (95-98) 12/12/17 10:00 ABG O2 Content 16.7 ML/dl (15-23) 12/12/17 10:00 ABG Base Excess 9.2 mmol/L (-2.0-3.0) H 12/12/17 10:00 ABG Hemoglobin 12.6 g/dL (11.7-17.4) 12/12/17 10:00 ABG Carboxyhemoglobin 2.2 % (0.5-1.5) H 12/12/17 10:00 POC ABG HHb (Measured) 2.9 % (0-5) 12/12/17 10:00 ABG Methemoglobin 1.0 % (0.0-3.0) 12/12/17 10:00 ABG O2 Capacity 17.2 mL/dl (16-24) 12/12/17 10:00 VBG pH 7.36 (7.32-7.43) 12/12/17 08:00 VBG pCO2 77.0 (40-60) H* 12/12/17 08:00 VBG HCO3 43.5 mmol/l (21-28) H 12/12/17 08:00 VBG Total CO2 45.9 mmol.L (22-28) H 12/12/17 08:00 VBG O2 Sat (Calc) 34.4 % (40-65) L 12/12/17 08:00 VBG Base Excess 14.3 mmol/L (0.0-2.0) H 12/12/17 08:00 VBG Potassium 3.8 mmol/L (3.6-5.2) 12/12/17 08:00 Hgb O2 Saturation 94.0 % (95.0-98.0) L 12/12/17 10:00 Sodium 130.0 mmol/L (132-148) L 12/12/17 08:00 Chloride 90.0 mmol/L (98-107) L 12/12/17 08:00 Glucose 108 mg/dl (75-110) 12/12/17 08:00 Lactate 1.3 mmol/L (0.7-2.1) 12/12/17 08:00 FiO2 21.0 % 12/12/17 10:00 Sodium 133 mmol/L (132-148) 12/15/17 06:30 Potassium 4.5 mmol/L (3.6-5.0) 12/15/17 06:30 Chloride 90 mmol/L (98-107) L 12/15/17 06:30 Carbon Dioxide 38 mmol/L (21-33) H 12/15/17 06:30 Anion Gap 9 (10-20) L 12/15/17 06:30 BUN 19 mg/dL (7-21) 12/15/17 06:30 Creatinine 0.9 mg/dl (0.8-1.5) 12/15/17 06:30 Est GFR ( Amer) > 60 12/15/17 06:30 Est GFR (Non-Af Amer) > 60 12/15/17 06:30 Random Glucose 92 mg/dL (70-110) 12/15/17 06:30 Calcium 8.8 mg/dL (8.4-10.5) 12/15/17 06:30 Phosphorus 3.1 mg/dL (2.5-4.5) 12/12/17 08:00 Magnesium 2.3 mg/dL (1.7-2.2) H 12/12/17 08:00 Total Bilirubin 1.2 mg/dL (0.2-1.3) 12/12/17 08:00 AST 37 U/L (17-59) 12/12/17 08:00 ALT 43 U/L (7-56) 12/12/17 08:00 Alkaline Phosphatase 144 U/L (38-126) H 12/12/17 08:00 Total Protein 6.3 g/dL (5.8-8.3) 12/12/17 08:00 Albumin 3.3 g/dL (3.0-4.8) 12/12/17 08:00 Globulin 2.9 gm/dL 12/12/17 08:00 Albumin/Globulin Ratio 1.1 (1.1-1.8) 12/12/17 08:00 Procalcitonin 1.33 NG/ML (0.19-0.49) H 12/12/17 08:00 Venous Blood Potassium 3.8 mmol/L (3.6-5.2) 12/12/17 08:00 Urine Color Yellow (YELLOW) 12/12/17 08:00 Urine Appearance Clear (CLEAR) 12/12/17 08:00 Urine pH 6.0 (4.7-8.0) 12/12/17 08:00 Ur Specific [place] 1.010 (1.005-1.035) 12/12/17 08:00 Urine Protein Trace mg/dL (<30 mg/dL) H 12/12/17 08:00 Urine Glucose (UA) Negative mg/dL (NEGATIVE) 12/12/17 08:00 Urine Ketones Negative mg/dL (NEGATIVE) 12/12/17 08:00 Urine Blood Negative (NEGATIVE) 12/12/17 08:00 Urine Nitrate Negative (NEGATIVE) 12/12/17 08:00 Urine Bilirubin Negative (NEGATIVE) 12/12/17 08:00 Urine Urobilinogen 1.0 E.U./dL (<1 E.U./dL) H 12/12/17 08:00 Ur Leukocyte Esterase Negative Alex/uL (NEGATIVE) 12/12/17 08:00 Urine RBC Negative /hpf (0-2) 12/12/17 08:00 Urine WBC 1 - 3 /hpf (0-6) 12/12/17 08:00 Ur Epithelial Cells 1 - 3 /hpf (0-5) 12/12/17 08:00 Urine Bacteria Few (NEG) 12/12/17 08:00 - Constitutional Appears: Well, No Acute Distress - Head Exam Head Exam: ATRAUMATIC, NORMAL INSPECTION, NORMOCEPHALIC - Eye Exam Eye Exam: Normal appearance - ENT Exam ENT Exam: Normal External Ear Exam - Neck Exam Neck Exam: Normal Inspection - Respiratory Exam Respiratory Exam: NORMAL BREATHING PATTERN - Cardiovascular Exam Cardiovascular Exam: absent: JVD - GI/Abdominal Exam GI & Abdominal Exam: absent: Distended - Rectal Exam Rectal Exam: Deferred - Exam Additional comments: Deferred. - Extremities Exam Additional comments: Redness and selling of right lower extremity. - Back Exam Back Exam: NORMAL INSPECTION - Neurological Exam Neurological Exam: Alert, Awake, Oriented x3 - Psychiatric Exam Psychiatric exam: Normal Affect, Normal Mood - Skin Skin Exam: Erythema (Right lower ext.) Assessment and Plan - Assessment and Plan (Free Text) Assessment: Right leg cellulitis. HTN. CHF. S/P PPM. Obesity. Atrial fibrillation. COPD. Former smoker. Social drinker. Plan: Percocet 5/325 stat dose was given. Later on, same was given one more time. Percocet 5/325 I PO TID was reordered.
--- NOTE | 2017-12-15 21:12 | PN ---
DATE: 12/14/2017 HISTORY OF PRESENT ILLNESS Mr. Rajput is a 67-year-old male admitted with right leg cellulitis. He has history of hypertension, COPD, CHF, pacemaker, atrial fibrillation, on anticoagulation. Right leg swelling and erythema decreased. REVIEW OF SYSTEMS As per HPI. Rest of 12-point review of systems reviewed negative. ALLERGIES: NO KNOWN DRUG ALLERGIES. HOME MEDICATIONS: Carvedilol, valsartan, Eliquis, vitamin D, Lasix, Percocet. SOCIAL HISTORY: Former smoker. No history of alcohol abuse. FAMILY HISTORY: Noncontributory. PERSONAL HISTORY: Lives at home with . PHYSICAL EXAMINATION: GENERAL: Comfortable in bed, in no acute distress. VITAL SIGNS: Temperature 98.7, heart rate 80 per minute, blood pressure 113/68, oxygen saturation 96% on room air. GENERAL: Pallor positive. HEENT: Normal. NECK: No lymphadenopathy. CHEST: Air entry present and equal bilaterally. No added sounds. CARDIOVASCULAR: S1, S2 normal. No murmur. No gallop. LUNGS: Clear to auscultation. ABDOMEN: Soft, nontender. No hepatosplenomegaly. EXTREMITIES: Right extremity erythema present. Left extremity is normal. SPINE: Nontender. SKIN: No petechia. No rash. LABORATORY DATA: White count 9.9, hemoglobin 13.6, INR 1.5. Sodium 134, potassium 3.6, creatinine 1.1. ASSESSMENT: 1. Right lower extremity cellulitis. 2. Congestive heart failure. 3. Atrial fibrillation. 4. Pacemaker. 5. Chronic obstructive pulmonary disease. 6. Anemia. PLAN: He is currently on IV antibiotics. Podiatry following. ID following. We will continue Bactrim and Zyvox. Pain control with Percocet. Continue Cozaar 100 mg daily, Eliquis 5 mg p.o. b.i.d. for atrial fibrillation. Bronchodilators to continue. Daniela Espino MD
--- NOTE | 2017-12-15 21:26 | PN ---
DATE: 12/15/2017 SUBJECTIVE: He is comfortable in bed, in no acute distress. Right leg cellulitis markedly improved. He is ambulating in room without any discomfort. Shortness of breath has decreased. No chest pain. No leg pain. REVIEW OF SYSTEMS: As per HPI. Rest of 12-point review of systems reviewed negative. MEDICATIONS: Tylenol 650 every 4 hours p.r.n., amiodarone 200 mg p.o. daily, Eliquis 5 mg p.o. b.i.d., Azactam 2 g every 8 hours, Coreg 25 mg p.o. b.i.d., Lasix 40 mg IV daily, Zyvox, losartan 100 mg daily, Percocet p.r.n. and potassium 20 mEq p.o. b.i.d. LABORATORY DATA: White count 9.9, hemoglobin 13.6, hematocrit 41.9, platelet count 198. Sodium 133, potassium 4.5, creatinine 0.9. PHYSICAL EXAMINATION GENERAL: Comfortable in bed, in no acute distress. VITAL SIGNS: Temperature 97.5, heart rate 74 per minute, blood pressure 86/60, respiratory rate 20 per minute, oxygen saturation 98% on room air. HEENT: Pallor positive. NECK: No lymphadenopathy. CHEST: Air entry present and equal bilaterally. No added sound. CARDIOVASCULAR: S1 and S2 normal. No murmur. No gallop. ABDOMEN: Soft, nontender. No hepatosplenomegaly. EXTREMITIES: Right extremity erythema present. Swelling markedly decreased. 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 No focal sensory or motor deficit. SPINE: Nontender. ASSESSMENT: 1. Right leg cellulitis. 2. Hypertension. 3. Anemia. 4. Atrial fibrillation. PLAN: We will continue anticoagulation with Eliquis 5 mg p.o. b.i.d., IV antibiotics to continue. Gram stain from the wound cultures showed gram-negative ritesh and gram-positive ritesh and pseudomonas aeruginosa. ID is following. Continue IV antibiotics. IV fluids. Discussed with the patient. Discussed with the . Discussed with the staff nurse. Daniela Espino MD [facility] # [id number]
[2017-12-16] MEDS ORDERED: Oxycodone/Acetaminophen 5/325 mg Tab PO STA (00:35)
[2017-12-16] MEDS: Aztreonam 2 Gm in NS 100mL 100 ML IVPB SCH ×3 (05:50→22:06)
[2017-12-16] MEDS: Albuterol 0.083% Inhal Sol (2.5 mg/3 mL) UD INH SCH ×3 (07:27→20:10)
--- NOTE | 2017-12-16 07:58 | CP.PCM.PN ---
Subjective - Date & Time of Evaluation Date of Evaluation: 12/16/17 Time of Evaluation: 07:00 - Subjective Subjective: Stable on 5R. No CP or SO. No drainage from RLE cellulitis now, MICH wrapped V/S noted. PE: Lungs: few rhonchi Cor: S1S2 Abd.: soft Ext. Less edema, RLE MICH wrapped Neuro.: alert BC X 2 NG at 3 days Wound C+S: + Pseudo. Echo: Severe LVD, EF ~ 20%, Mild and MR, Severe TR and PH Labs 4/8 noted. Objective - Vital Signs/Intake and Output Vital Signs (last 24 hours): Temp Pulse Resp BP Pulse Ox 98.3 F 75 20 125/79 96 12/16/17 07:30 12/16/17 07:30 12/16/17 07:30 12/16/17 07:30 12/16/17 07:30 Intake and Output: 12/16/17 12/16/17 06:59 18:59 Intake Total 240 Balance 240 - Medications Medications: Current Medications Acetaminophen (Tylenol 325mg Tab) 650 mg PO Q4H PRN PRN Reason: Fever >100.5 F Albuterol Sulfate (Albuterol 0.083% Inhal Leticia (2.5 Mg/3 Ml) Ud) 2.5 mg INH TIDRESP [facility] Last Admin: 12/16/17 07:27 Dose: 2.5 mg Amiodarone HCl (Cordarone) 200 mg PO DAILY [facility] Last Admin: 12/15/17 10:46 Dose: 200 mg Apixaban (Eliquis) 5 mg PO BID [facility] PRN Reason: Protocol Last Admin: 12/15/17 18:02 Dose: 5 mg Carvedilol (Coreg) 25 mg PO BID [facility] Last Admin: 12/15/17 18:03 Dose: 25 mg Furosemide (Lasix) 40 mg IVP DAILY [facility] Last Admin: 12/15/17 10:45 Dose: 40 mg Linezolid (Zyvox 600mg/300ml D5w) 600 mg in 300 mls @ 200 mls/hr IVPB Q12 [facility] PRN Reason: Protocol Stop: 12/20/17 10:16 Last Admin: 12/15/17 21:25 Dose: 200 mls/hr Aztreonam (Azactam 2 Gm) 100 mls @ 100 mls/hr IVPB Q8 [facility] PRN Reason: Protocol Stop: 12/21/17 14:01 Last Admin: 12/16/17 05:50 Dose: 100 mls/hr Losartan Potassium (Cozaar) 100 mg PO DAILY [facility] Last Admin: 12/15/17 10:45 Dose: 100 mg Oxycodone/Acetaminophen (Percocet 5/325 Mg Tab) 1 tab PO TID PRN PRN Reason: MOD PAIN [4-7] Stop: 12/18/17 14:01 Last Admin: 12/15/17 20:13 Dose: 1 tab Potassium Chloride (K-Dur 20 Meq Er Tab) 20 meq PO BID [facility] Last Admin: 12/15/17 18:03 Dose: 20 meq - Labs Labs: 12/15/17 06:30 PT 17.6 SECONDS (9.4-12.5) H 12/12/17 08:00 INR 1.52 (0.93-1.08) H 12/12/17 08:00 APTT 33.5 Seconds (25.1-36.5) 12/12/17 08:00 Assessment and Plan - Assessment and Plan (Free Text) Assessment: RLE weeping cellulitis with edema 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 OOB/PT as naty.
[2017-12-16] MEDS: Potassium Chloride 20 mEq ER Tab PO SCH ×2 (09:28→18:20)
[2017-12-16] MEDS: Linezolid 600 mg in D5W 300 ml 600 MG/300 ML BAG IVPB SCH ×2 (09:30→23:28)
--- NOTE | 2017-12-16 09:43 | PN ---
DATE: 12/16/2017 SUBJECTIVE: The patient has no complaints of any chest pain. No shortness of breath. He says his pain is much better. He is able to ambulate on the leg, which he was not able to do before. PHYSICAL EXAMINATION: VITAL SIGNS: Temperature is 98.3, pulse is 75, blood pressure is 125/79, respirations 20, O2 saturation 96%. GENERAL: The patient is lying in bed, flat, comfortable. HEENT: No oral lesion. Anicteric sclerae. Moist mucosa. NECK: No JVD, adenopathy, or thyromegaly. CARDIOVASCULAR: S1 and S2, regular. No murmurs, rubs, or gallops. LUNGS: Clear to auscultation bilaterally. No wheeze, rales, or rhonchi. ABDOMEN: Bowel sounds are positive, soft, nontender and nondistended. EXTREMITIES: No cyanosis, clubbing or edema. ASSESSMENT: 1. Right leg cellulitis secondary to pseudomonas. 2. Hypertension. 3. Chronic obstructive pulmonary disease. 4. Chronic atrial fibrillation, on anticoagulation. 5. Chronic obstructive pulmonary disease. 6. Lower extremity edema, improving. PLAN: The patient is currently comfortable. He is improving clinically. The patient's cellulitis is getting better. I did look at the wound myself. The patient is on aztreonam for antibiotics. He is on carvedilol. He is going to continue with the amiodarone for his anticoagulation. The patient is on Eliquis. He is going to continue with Lasix daily. The patient is on Percocet for pain. He is receiving linezolid. He is on a heart-healthy diet. We will discontinue his oxygen. I will await input from Podiatry and ID about the patient's discharge and the possibility of changing to p.o. antibiotics. Gerardo Mccormack MD
[2017-12-16] MEDS: Oxycodone/Acetaminophen 5/325 mg Tab PO PRN (09:55)
--- NOTE | 2017-12-16 14:57 | CP.PCM.PN ---
Subjective - Date & Time of Evaluation Date of Evaluation: 12/16/17 Time of Evaluation: 14:35 - Subjective Subjective: Podiatry Progress note: Dr. Fernandez/Dr. Coyne 67 year old male seen and evaluated at bedside for bilateral leg wounds. Patient resting in bed comfortably at time of visit, NAD. BETTENCOURT. Dressings to bilateral LE clean/dry/intact. Reports pain in RLE, well-controlled. No complaints to his left leg wound; states he initially bumped his leg into something and the wound has since remained nonhealing. Denies N/V/F/D/C/SOB/MELVIN/ dizziness. Offers no other complaints. Objective - Vital Signs/Intake and Output Vital Signs (last 24 hours): Temp Pulse Resp BP Pulse Ox 98.3 F 75 20 125/79 96 12/16/17 07:30 12/16/17 07:30 12/16/17 07:30 12/16/17 09:25 12/16/17 07:30 Intake and Output: 12/16/17 12/16/17 06:59 18:59 Intake Total 240 Balance 240 - Medications Medications: Current Medications Acetaminophen (Tylenol 325mg Tab) 650 mg PO Q4H PRN PRN Reason: Fever >100.5 F Albuterol Sulfate (Albuterol 0.083% Inhal Leticia (2.5 Mg/3 Ml) Ud) 2.5 mg INH TIDRESP [facility] Last Admin: 12/16/17 13:45 Dose: 2.5 mg Amiodarone HCl (Cordarone) 200 mg PO DAILY [facility] Last Admin: 12/16/17 09:28 Dose: 200 mg Apixaban (Eliquis) 5 mg PO BID [facility] PRN Reason: Protocol Last Admin: 12/16/17 09:28 Dose: 5 mg Carvedilol (Coreg) 25 mg PO BID [facility] Last Admin: 12/16/17 09:27 Dose: 25 mg Furosemide (Lasix) 40 mg IVP DAILY [facility] Last Admin: 12/16/17 09:25 Dose: 40 mg Linezolid (Zyvox 600mg/300ml D5w) 600 mg in 300 mls @ 200 mls/hr IVPB Q12 [facility] PRN Reason: Protocol Stop: 12/20/17 10:16 Last Admin: 12/16/17 09:30 Dose: 200 mls/hr Aztreonam (Azactam 2 Gm) 100 mls @ 100 mls/hr IVPB Q8 [facility] PRN Reason: Protocol Stop: 12/21/17 14:01 Last Admin: 12/16/17 05:50 Dose: 100 mls/hr Losartan Potassium (Cozaar) 100 mg PO DAILY [facility] Last Admin: 12/16/17 09:27 Dose: 100 mg Oxycodone/Acetaminophen (Percocet 5/325 Mg Tab) 1 tab PO TID PRN PRN Reason: MOD PAIN [4-7] Stop: 12/18/17 14:01 Last Admin: 12/16/17 09:55 Dose: 1 tab Potassium Chloride (K-Dur 20 Meq Er Tab) 20 meq PO BID [facility] Last Admin: 12/16/17 09:28 Dose: 20 meq - Labs Labs: 12/15/17 06:30 PT 17.6 SECONDS (9.4-12.5) H 12/12/17 08:00 INR 1.52 (0.93-1.08) H 12/12/17 08:00 APTT 33.5 Seconds (25.1-36.5) 12/12/17 08:00 - Constitutional Appears: Well, Non-toxic, No Acute Distress - Extremities Exam Additional comments: Bilateral LE exam VASC: DP/PT pulses are palpable 1/4, Cap refill time: < 3 sec to all digits, Temp gradient: warm to warm from proximal to distal b/l with moderate increase in warmth noted to RLE erytehma, 1+ pitting edema noted on the distal leg bilaterally DERM: Wound approx. 4 x 3 x 0.2cm noted on the proximomedial aspect of the left leg, wound base is mixed fibrogranular with periwound erythema and hyperpigmentation, no serous drainage, no purulent drainage, no active bleeding , no increase in warmth, no clinical suspicion of active infection, 2 small superficial wound present on the distal aspect of the right leg, mild serous drainage, no purulent drainage, no tunneling, no undermining, no probe to bone, severe deep/ruborous periwound erythema extending proximally to the knee joint with increase in warmth to RLE NEURO: Protective sensation mildly diminished ORTHO: No pain on palpation of the ulcerated sites - Neurological Exam Neurological Exam: Alert, Awake, Oriented x3 - Psychiatric Exam Psychiatric exam: Normal Affect, Normal Mood Assessment and Plan - Assessment and Plan (Free Text) Assessment: 67 year old male with Stage 3 non-pressure ulcer L leg, stage 2 pressure ulcer R leg, RLE cellulitis Plan: Patient seen and evaluated with attending Dr. Fernandez Afebrile -f/u next day CBC, ESR, CRP Bilateral venous duplex: negative for DVT Bialteral arterial duplex: negative for significant arterial insufficiency Right leg Ccx: pseudomonas aeruginosa, MRSA Left leg cx: pseudomonas aeruginosa Continue local wound care: RLE kerlix + MICH wrap, LLE optifoam -Lotrisone ordered for BID applications Continue abx as per ID - Aztreonam, Linezolid Podiatry will continue to follow
[2017-12-16] MEDS: Clotrimazole/Betamethasone Lotion(30 ml) TOP SCH (18:21)
[2017-12-17] MEDS: Oxycodone/Acetaminophen 5/325 mg Tab PO PRN ×5 (00:43→22:03)
[2017-12-17] MEDS: Aztreonam 2 Gm in NS 100mL 100 ML IVPB SCH ×3 (05:54→21:50)
[2017-12-17 07:13] LABS: EOS % 0.5 % (1.5-5.0); GRAN # 5.3 (1.4-6.5); GRAN % 83.5 % (50.0-68.0); HEMOGLOBIN 12.6 g/dL (14.0-18.0); LYMPH # 0.6 (1.2-3.4); LYMPH % 9.5 % (22.0-35.0); MEAN CELL VOLUME 95.9 fl (80.0-105.0); MEAN CORPUSCULAR HEMOGLOBIN 30.7 pg (25.0-35.0); MEAN PLATELET VOLUME 9.6 fl (7.0-11.0); MONO # 0.4 (0.1-0.6); MONO % 6.5 % (1.0-6.0); RBC 4.11 10^6/uL (3.5-6.1); RED CELL DISTRIBUTION WIDTH 14.9 % (11.5-14.5); WHITE BLOOD COUNT 6.3 10^3/ul (4.5-11.0)
[2017-12-17 07:42] VITALS: RESP 20
[2017-12-17] MEDS: Albuterol 0.083% Inhal Sol (2.5 mg/3 mL) UD INH SCH ×3 (07:45→20:42)
[2017-12-17 07:50] LABS: BLOOD UREA NITROGEN 21 mg/dL (7-21); CALCIUM 8.9 mg/dL (8.4-10.5); GFR AFRICAN-AMERICAN > 60; GFR NON-AFRICAN AMERICAN > 60
--- NOTE | 2017-12-17 07:53 | CP.PCM.PN ---
Subjective - Date & Time of Evaluation Date of Evaluation: 12/17/17 Time of Evaluation: 07:00 - Subjective Subjective: Stable on 5R. No CP or SOB. V/S noted.No fever. PE: Lungs: few rhonchi Cor: S1S2 Abd.: soft Ext.+ edema, RLE MICH wrapped. LLE bandage. Neuro.: alert I/O= 1620/450 Labs noted: WBC= 6300. BMP, Mg++ pending. BC X 2 NG at 4 days Wound C+S: + Pseudo. and MRSA Echo: Severe LVD, EF ~ 20%, Mild and MR, Severe TR and PH Objective - Vital Signs/Intake and Output Vital Signs (last 24 hours): Temp Pulse Resp BP Pulse Ox 98 F 67 20 125/86 96 12/17/17 07:41 12/17/17 07:41 12/17/17 07:41 12/17/17 07:41 12/17/17 07:41 Intake and Output: 12/17/17 12/17/17 06:59 18:59 Intake Total 1620 Output Total 450 Balance 1170 - Medications Medications: Current Medications Acetaminophen (Tylenol 325mg Tab) 650 mg PO Q4H PRN PRN Reason: Fever >100.5 F Albuterol Sulfate (Albuterol 0.083% Inhal Leticia (2.5 Mg/3 Ml) Ud) 2.5 mg INH TIDRESP [facility] Last Admin: 12/16/17 20:10 Dose: 2.5 mg Amiodarone HCl (Cordarone) 200 mg PO DAILY [facility] Last Admin: 12/16/17 09:28 Dose: 200 mg Apixaban (Eliquis) 5 mg PO BID [facility] PRN Reason: Protocol Last Admin: 12/16/17 18:20 Dose: 5 mg Betamethasone/Clotrimazole (Lotrisone) 0 ml TOP BID [facility] Last Admin: 12/16/17 18:21 Dose: 1 applic Carvedilol (Coreg) 25 mg PO BID [facility] Last Admin: 12/16/17 18:21 Dose: 25 mg Furosemide (Lasix) 40 mg IVP DAILY [facility] Last Admin: 12/16/17 09:25 Dose: 40 mg Linezolid (Zyvox 600mg/300ml D5w) 600 mg in 300 mls @ 200 mls/hr IVPB Q12 [facility] PRN Reason: Protocol Stop: 12/20/17 10:16 Last Admin: 12/16/17 23:28 Dose: 200 mls/hr Aztreonam (Azactam 2 Gm) 100 mls @ 100 mls/hr IVPB Q8 [facility] PRN Reason: Protocol Stop: 12/21/17 14:01 Last Admin: 12/17/17 05:54 Dose: 100 mls/hr Losartan Potassium (Cozaar) 100 mg PO DAILY [facility] Last Admin: 12/16/17 09:27 Dose: 100 mg Oxycodone/Acetaminophen (Percocet 5/325 Mg Tab) 1 tab PO TID PRN PRN Reason: MOD PAIN [4-7] Stop: 12/18/17 14:01 Last Admin: 12/17/17 07:11 Dose: 1 tab Potassium Chloride (K-Dur 20 Meq Er Tab) 20 meq PO BID [facility] Last Admin: 12/16/17 18:20 Dose: 20 meq - Labs Labs: 12/17/17 06:40 12/15/17 06:30 PT 17.6 SECONDS (9.4-12.5) H 12/12/17 08:00 INR 1.52 (0.93-1.08) H 12/12/17 08:00 APTT 33.5 Seconds (25.1-36.5) 12/12/17 08:00 Assessment and Plan - Assessment and Plan (Free Text) Assessment: RLE weeping cellulitis with edema: + psedo., and MRSA Non-healing wound LLE CCM, etoh related CHF Chronic AF, on Eliquis ICD HBP H/O prostate cancer with seed implants TKR Cataracts Plan: Await AM labs. As per ID and Podiatry AB Continue IV Lasix and PO cardiac meds. OOB/PT as naty.
--- NOTE | 2017-12-17 08:46 | PN ---
DATE: 12/17/2017 SUBJECTIVE: The patient has no complaints of any chest pain. No shortness of breath. No headaches. He says he is able to ambulate better. PHYSICAL EXAMINATION; VITAL SIGNS: Temperature is 98.6, pulse of 83, blood pressure is 139/84, respiration is 18. GENERAL: The patient is lying in bed, flat, comfortable. HEENT: No oral lesion. Anicteric sclerae. Moist mucosa. NECK: No JVD, adenopathy, or thyromegaly. CARDIOVASCULAR: S1 and S2, regular. No murmurs, rubs, or gallops. LUNGS: Clear to auscultation bilaterally. No wheeze, rales, or rhonchi. ABDOMEN: Bowel sounds are positive, soft, nontender and nondistended. EXTREMITIES: No cyanosis, clubbing or edema. Right leg that has dressing in place. There is some yellowish discharge that is dry that can be seen. ASSESSMENT: 1. Right leg cellulitis secondary to pseudomonas. 2. Hypertension. 3. Chronic obstructive pulmonary disease. 4. Atrial fibrillation, on anticoagulation. 5. Lower extremity edema, improved. PLAN: The patient is currently on aztreonam for his antibiotics. The patient is going to continue with amiodarone. He has been followed by Dr. Meyer. The patient is on Coreg. He is going to continue with Eliquis for his anticoagulation. He is on linezolid for his antibiotics. I did speak to Dr. Soriano yesterday regarding the case. The patient is on day #5 of 7 of antibiotics. He need to continue with Azactam IV. Gerardo Mccormack MD
[2017-12-17] MEDS: Potassium Chloride 20 mEq ER Tab PO SCH (09:37)
[2017-12-17] MEDS: Linezolid 600 mg in D5W 300 ml 600 MG/300 ML BAG IVPB SCH ×2 (09:38→21:50)
--- NOTE | 2017-12-17 12:26 | CP.PCM.PN ---
Subjective - Date & Time of Evaluation Date of Evaluation: 12/17/17 Time of Evaluation: 11:30 - Subjective Subjective: Feeling better, no fevers, less pain in the right leg, no diarrhea. Objective - Vital Signs/Intake and Output Vital Signs (last 24 hours): Temp Pulse Resp BP Pulse Ox 98 F 67 20 125/86 96 12/17/17 07:41 12/17/17 07:41 12/17/17 07:41 12/17/17 07:41 12/17/17 07:41 Intake and Output: 12/17/17 12/17/17 06:59 18:59 Intake Total 1620 Output Total 450 Balance 1170 - Medications Medications: Current Medications Acetaminophen (Tylenol 325mg Tab) 650 mg PO Q4H PRN PRN Reason: Fever >100.5 F Albuterol Sulfate (Albuterol 0.083% Inhal Leticia (2.5 Mg/3 Ml) Ud) 2.5 mg INH TIDRESP [facility] Last Admin: 12/17/17 07:45 Dose: 2.5 mg Amiodarone HCl (Cordarone) 200 mg PO DAILY [facility] Last Admin: 12/16/17 09:28 Dose: 200 mg Apixaban (Eliquis) 5 mg PO BID [facility] PRN Reason: Protocol Last Admin: 12/16/17 18:20 Dose: 5 mg Betamethasone/Clotrimazole (Lotrisone) 0 ml TOP BID [facility] Last Admin: 12/16/17 18:21 Dose: 1 applic Carvedilol (Coreg) 25 mg PO BID [facility] Last Admin: 12/16/17 18:21 Dose: 25 mg Furosemide (Lasix) 40 mg IVP DAILY [facility] Last Admin: 12/16/17 09:25 Dose: 40 mg Linezolid (Zyvox 600mg/300ml D5w) 600 mg in 300 mls @ 200 mls/hr IVPB Q12 [facility] PRN Reason: Protocol Stop: 12/20/17 10:16 Last Admin: 12/16/17 23:28 Dose: 200 mls/hr Aztreonam (Azactam 2 Gm) 100 mls @ 100 mls/hr IVPB Q8 [facility] PRN Reason: Protocol Stop: 12/21/17 14:01 Last Admin: 12/17/17 05:54 Dose: 100 mls/hr Losartan Potassium (Cozaar) 100 mg PO DAILY [facility] Last Admin: 12/16/17 09:27 Dose: 100 mg Oxycodone/Acetaminophen (Percocet 5/325 Mg Tab) 1 tab PO TID PRN PRN Reason: MOD PAIN [4-7] Stop: 12/18/17 14:01 Last Admin: 12/17/17 07:11 Dose: 1 tab Potassium Chloride (K-Dur 20 Meq Er Tab) 20 meq PO BID [facility] Last Admin: 12/16/17 18:20 Dose: 20 meq - Labs Labs: 12/17/17 06:40 12/17/17 06:40 PT 17.6 SECONDS (9.4-12.5) H 12/12/17 08:00 INR 1.52 (0.93-1.08) H 12/12/17 08:00 APTT 33.5 Seconds (25.1-36.5) 12/12/17 08:00 - Constitutional Appears: Chronically Ill - Head Exam Head Exam: NORMAL INSPECTION - ENT Exam ENT Exam: Mucous Membranes Moist - Neck Exam Neck Exam: absent: Meningismus - Respiratory Exam Respiratory Exam: Decreased Breath Sounds - Cardiovascular Exam Cardiovascular Exam: +S1, +S2 - GI/Abdominal Exam GI & Abdominal Exam: Soft. absent: Tenderness - Extremities Exam Additional comments: right leg with dressings in place Assessment and Plan - Assessment and Plan (Free Text) Plan: Assessment Consider right leg skin and skin structure infection, growing Pseudomonas and MRSA HTN COPD S/P pacemaker placement chronic atrial fibrillation on anticoagulation S/P right knee replacement chronic CHF Plan continue Zyvox and Azactam day 5 to complete 7-10 days of therapy; reviewed wound cx, no DVT on duplex U/S and JANELLE's are normal follow up further recommendations of Podiatry discussed with Dr. Collins will continue to monitor clinically
[2017-12-17] MEDS: Clotrimazole/Betamethasone Lotion(30 ml) TOP SCH ×2 (13:13→17:52)
--- NOTE | 2017-12-17 15:56 | CP.PCM.PN ---
<Kelly Brewer - Last Filed: 12/17/17 15:51> Subjective - Date & Time of Evaluation Date of Evaluation: 12/17/17 Time of Evaluation: 15:52 - Subjective Subjective: Podiatry Progress note: Dr. Fernandez/Dr. Coyne 67 year old male seen and evaluated at bedside for bilateral leg wounds. Patient resting in bed comfortably at time of visit, NAD. Sister present at bedside at time of visit. NAEON. Dressings to bilateral LE clean/dry/intact. Pain to RLE has diminished. No complaints to left leg wound. Denies N/V/F/D/C/ SOB/MELVIN/dizziness. Offers no other complaints. Objective - Vital Signs/Intake and Output Vital Signs (last 24 hours): Temp Pulse Resp BP Pulse Ox 97.3 F L 72 20 115/79 100 12/17/17 14:00 12/17/17 14:00 12/17/17 14:00 12/17/17 14:00 12/17/17 14:00 Intake and Output: 12/17/17 12/17/17 06:59 18:59 Intake Total 1620 Output Total 450 Balance 1170 - Medications Medications: Current Medications Acetaminophen (Tylenol 325mg Tab) 650 mg PO Q4H PRN PRN Reason: Fever >100.5 F Albuterol Sulfate (Albuterol 0.083% Inhal Leticia (2.5 Mg/3 Ml) Ud) 2.5 mg INH TIDRESP [facility] Last Admin: 12/17/17 13:22 Dose: 2.5 mg Amiodarone HCl (Cordarone) 200 mg PO DAILY [facility] Last Admin: 12/17/17 09:38 Dose: 200 mg Apixaban (Eliquis) 5 mg PO BID [facility] PRN Reason: Protocol Last Admin: 12/17/17 09:37 Dose: 5 mg Betamethasone/Clotrimazole (Lotrisone) 0 ml TOP BID [facility] Last Admin: 12/17/17 13:13 Dose: 1 applic Carvedilol (Coreg) 25 mg PO BID [facility] Last Admin: 12/17/17 09:37 Dose: 25 mg Furosemide (Lasix) 40 mg IVP DAILY [facility] Last Admin: 12/17/17 09:38 Dose: 40 mg Linezolid (Zyvox 600mg/300ml D5w) 600 mg in 300 mls @ 200 mls/hr IVPB Q12 [facility] PRN Reason: Protocol Stop: 12/20/17 10:16 Last Admin: 12/17/17 09:38 Dose: 200 mls/hr Aztreonam (Azactam 2 Gm) 100 mls @ 100 mls/hr IVPB Q8 [facility] PRN Reason: Protocol Stop: 12/21/17 14:01 Last Admin: 12/17/17 13:12 Dose: 100 mls/hr Losartan Potassium (Cozaar) 100 mg PO DAILY [facility] Last Admin: 12/17/17 09:39 Dose: 100 mg Oxycodone/Acetaminophen (Percocet 5/325 Mg Tab) 1 tab PO TID PRN PRN Reason: MOD PAIN [4-7] Stop: 12/18/17 14:01 Last Admin: 12/17/17 13:14 Dose: 1 tab - Labs Labs: 12/17/17 06:40 12/17/17 06:40 PT 17.6 SECONDS (9.4-12.5) H 12/12/17 08:00 INR 1.52 (0.93-1.08) H 12/12/17 08:00 APTT 33.5 Seconds (25.1-36.5) 12/12/17 08:00 - Constitutional Appears: Well, Non-toxic, No Acute Distress - Extremities Exam Additional comments: Bilateral LE exam VASC: DP/PT pulses are palpable 1/4, Cap refill time: < 3 sec to all digits, Temp gradient: warm to warm from proximal to distal b/l with moderate increase in warmth noted to RLE erytehma, 1+ pitting edema noted on the distal leg bilaterally DERM: Wound approx. 4 x 3 x 0.2cm noted on the proximomedial aspect of the left leg, wound base is mixed fibrogranular with periwound erythema and hyperpigmentation, no serous drainage, no purulent drainage, no active bleeding , no increase in warmth, no clinical suspicion of active infection, 2 small superficial wound present on the distal aspect of the right leg resolving, no drainage noted, no purulence noted, no tunneling, no undermining, no probe to bone. Severe deep/ruborous periwound erythema extending proximally to the knee joint with increase in warmth to RLE is resolving, with redness diminishing in color. NEURO: Protective sensation mildly diminished ORTHO: No pain on palpation of the ulcerated sites - Neurological Exam Neurological Exam: Alert, Awake, Oriented x3 - Psychiatric Exam Psychiatric exam: Normal Affect, Normal Mood Assessment and Plan - Assessment and Plan (Free Text) Assessment: 67 year old male with 1) Stage 3 non-pressure ulcer L leg, 2) RLE cellulitis resolving Plan: Patient seen and evaluated with attending Dr. Coyne Afebrile, WBC 6.3, ESR 55 Bilateral venous duplex: negative for DVT Bialteral arterial duplex: negative for significant arterial insufficiency Right leg Ccx: pseudomonas aeruginosa, MRSA Left leg cx: pseudomonas aeruginosa Continue local wound care: RLE kerlix + MICH wrap, LLE optifoam -Lotrisone ordered for BID applications Continue abx as per ID - Aztreonam, Linezolid Podiatry will continue to follow <Demarco Coyne - Last Filed: 12/17/17 16:16> Objective - Vital Signs/Intake and Output Vital Signs (last 24 hours): Temp Pulse Resp BP Pulse Ox 97.3 F L 72 20 115/79 100 12/17/17 14:00 12/17/17 14:00 12/17/17 14:00 12/17/17 14:00 12/17/17 14:00 Intake and Output: 12/17/17 12/17/17 06:59 18:59 Intake Total 1620 Output Total 450 Balance 1170 - Medications Medications: Current Medications Acetaminophen (Tylenol 325mg Tab) 650 mg PO Q4H PRN PRN Reason: Fever >100.5 F Albuterol Sulfate (Albuterol 0.083% Inhal Leticia (2.5 Mg/3 Ml) Ud) 2.5 mg INH TIDRESP [facility] Last Admin: 12/17/17 13:22 Dose: 2.5 mg Amiodarone HCl (Cordarone) 200 mg PO DAILY [facility] Last Admin: 12/17/17 09:38 Dose: 200 mg Apixaban (Eliquis) 5 mg PO BID [facility] PRN Reason: Protocol Last Admin: 12/17/17 09:37 Dose: 5 mg Betamethasone/Clotrimazole (Lotrisone) 0 ml TOP BID [facility] Last Admin: 12/17/17 13:13 Dose: 1 applic Carvedilol (Coreg) 25 mg PO BID [facility] Last Admin: 12/17/17 09:37 Dose: 25 mg Furosemide (Lasix) 40 mg IVP DAILY [facility] Last Admin: 12/17/17 09:38 Dose: 40 mg Linezolid (Zyvox 600mg/300ml D5w) 600 mg in 300 mls @ 200 mls/hr IVPB Q12 [facility] PRN Reason: Protocol Stop: 12/20/17 10:16 Last Admin: 12/17/17 09:38 Dose: 200 mls/hr Aztreonam (Azactam 2 Gm) 100 mls @ 100 mls/hr IVPB Q8 [facility] PRN Reason: Protocol Stop: 12/21/17 14:01 Last Admin: 12/17/17 13:12 Dose: 100 mls/hr Losartan Potassium (Cozaar) 100 mg PO DAILY [facility] Last Admin: 12/17/17 09:39 Dose: 100 mg Oxycodone/Acetaminophen (Percocet 5/325 Mg Tab) 1 tab PO TID PRN PRN Reason: MOD PAIN [4-7] Stop: 12/18/17 14:01 Last Admin: 12/17/17 13:14 Dose: 1 tab - Labs Labs: 12/17/17 06:40 12/17/17 06:40 PT 17.6 SECONDS (9.4-12.5) H 12/12/17 08:00 INR 1.52 (0.93-1.08) H 12/12/17 08:00 APTT 33.5 Seconds (25.1-36.5) 12/12/17 08:00 Attending/Attestation - Attestation I have personally seen and examined this patient.: Yes I have fully participated in the care of the patient.: Yes I have reviewed all pertinent clinical information, including history, physical exam and plan: Yes
[2017-12-18] MEDS: Aztreonam 2 Gm in NS 100mL 100 ML IVPB SCH ×3 (05:41→21:37)
[2017-12-18] MEDS: Oxycodone/Acetaminophen 5/325 mg Tab PO PRN (05:55)
[2017-12-18] MEDS: Albuterol 0.083% Inhal Sol (2.5 mg/3 mL) UD INH SCH ×3 (08:08→21:01)
[2017-12-18] MEDS: Linezolid 600 mg in D5W 300 ml 600 MG/300 ML BAG IVPB SCH ×2 (09:47→21:38)
[2017-12-18] MEDS: Clotrimazole/Betamethasone Lotion(30 ml) TOP SCH ×2 (10:06→18:23)
--- NOTE | 2017-12-18 10:28 | PN ---
DATE: 12/18/2017 SUBJECTIVE: The patient has no complaints of any chest pain, no shortness of breath, no headaches or dizziness. PHYSICAL EXAMINATION VITAL SIGNS: Temperature is 97.6, pulse is 73, blood pressure 126/92, respirations 20, O2 saturation 96%. GENERAL: The patient is lying in bed, flat, comfortable. HEENT: No oral lesion. Anicteric sclerae. Moist mucosa. NECK: No JVD, adenopathy, or thyromegaly. CARDIOVASCULAR: S1 and S2, regular. No murmurs, rubs, or gallops. LUNGS: Clear to auscultation bilaterally. No wheeze, rales, or rhonchi. ABDOMEN: Bowel sounds are positive, soft, nontender and nondistended. EXTREMITIES: No cyanosis, clubbing or edema. ASSESSMENT: 1. Right leg cellulitis secondary to Pseudomonas. 2. Hypertension. 3. Chronic obstructive pulmonary disease. 4. Atrial fibrillation, on anticoagulation. 5. Lower extremity edema, improved. PLAN: The patient is currently comfortable. He is going to continue with aztreonam for antibiotics. He is on amiodarone. The patient is on Eliquis for anticoagulation. He is on oxycodone for pain. The patient is on Tylenol. He is going to continue with linezolid. He is on a heart-healthy diet. He has one more day of antibiotics and will be discharged tomorrow. I did speak to Dr. Soriano about the case. Gerardo Mccormack MD
--- NOTE | 2017-12-18 12:58 | PN ---
DATE: 12/18/2017 SUBJECTIVE: The patient is seen lying in bed on 5R. He is comfortable at the present time. His leg wounds have improved. Plan is being made for discharge home later in the week with home antibiotics and wound care. He denies any dyspnea. His leg edema is improved as well. CURRENT MEDICATIONS: Remain an albuterol inhaler, Azactam, amiodarone 200 mg daily, carvedilol 25 mg b.i.d., Cozaar 100 mg daily, Eliquis 5 mg b.i.d., Lasix 40 mg daily and Zyvox. OBJECTIVE: GENERAL: He is a middle-aged man, who appears comfortable at rest. VITAL SIGNS: His blood pressure is 126/90 with a pulse of 70, respirations are 16. He is afebrile. HEENT: No JVD. CHEST: Few scattered rhonchi. HEART: PMI displaced laterally with soft tones noted. ABDOMEN: Soft, nontender, normoactive bowel sounds. EXTREMITIES: His right leg is wrapped. His edema is much improved. Chronic cellulitic changes are noted. DIAGNOSTIC DATA: No blood work is pending from this morning. IMPRESSION: 1. Right lower extremity cellulitis, clinically improved. Wound positive for Pseudomonas and methicillin-resistant Staphylococcus aureus. 2. Congestive cardiomyopathy, appears compensated at present. 3. Chronic atrial fibrillation. 4. History of hypertension. 5. Status post implantable cardioverter-defibrillator implant. RECOMMENDATIONS: His current cardiac medications will continue for now. Lasix can be continued intravenously until discharge and then switch back to oral administration. Continue sodium and fluid restriction are advised. Close outpatient followup will be arranged upon discharge. Williams Moser MD
--- NOTE | 2017-12-18 14:20 | CP.PCM.PN ---
Subjective - Date & Time of Evaluation Date of Evaluation: 12/18/17 Time of Evaluation: 14:13 - Subjective Subjective: Podiatry Progress note: Dr. Fernandez/Dr. Coyne 67 year old male seen and evaluated at bedside for bilateral leg wounds + cellulitis. Patient resting in bed comfortably at time of visit, NAD. present at bedside. NAEON. Denies pain to bilateral LE. Tolerating physical therapy. Patient also complains of painful, elongated nails that cause discomfort with pressure or with ambulation, and requesting his nails to be trimmed today. Denies N/V/F/D/C/SOB/MELVIN/dizziness. Offers no other complaints. Objective - Vital Signs/Intake and Output Vital Signs (last 24 hours): Temp Pulse Resp BP Pulse Ox 97.6 F 73 20 126/92 H 96 12/18/17 06:00 12/18/17 10:05 12/18/17 06:00 12/18/17 10:05 12/18/17 06:00 Intake and Output: 12/18/17 12/18/17 06:59 18:59 Intake Total 1060 1820 Output Total 1001 Balance 1060 819 - Medications Medications: Current Medications Acetaminophen (Tylenol 325mg Tab) 650 mg PO Q4H PRN PRN Reason: Fever >100.5 F Albuterol Sulfate (Albuterol 0.083% Inhal Leticia (2.5 Mg/3 Ml) Ud) 2.5 mg INH TIDRESP [facility] Last Admin: 12/18/17 13:35 Dose: 2.5 mg Amiodarone HCl (Cordarone) 200 mg PO DAILY [facility] Last Admin: 12/18/17 10:05 Dose: 200 mg Apixaban (Eliquis) 5 mg PO BID [facility] PRN Reason: Protocol Last Admin: 12/18/17 10:05 Dose: 5 mg Betamethasone/Clotrimazole (Lotrisone) 0 ml TOP BID [facility] Last Admin: 12/18/17 10:06 Dose: 1 applic Carvedilol (Coreg) 25 mg PO BID [facility] Last Admin: 12/18/17 10:04 Dose: 25 mg Furosemide (Lasix) 40 mg IVP DAILY [facility] Last Admin: 12/18/17 10:01 Dose: 40 mg Linezolid (Zyvox 600mg/300ml D5w) 600 mg in 300 mls @ 200 mls/hr IVPB Q12 [facility] PRN Reason: Protocol Stop: 12/20/17 10:16 Last Admin: 12/18/17 09:47 Dose: 200 mls/hr Aztreonam (Azactam 2 Gm) 100 mls @ 100 mls/hr IVPB Q8 [facility] PRN Reason: Protocol Stop: 12/21/17 14:01 Last Admin: 12/18/17 05:41 Dose: 100 mls/hr Losartan Potassium (Cozaar) 100 mg PO DAILY [facility] Last Admin: 12/18/17 10:04 Dose: 100 mg - Labs Labs: 12/17/17 06:40 12/17/17 06:40 PT 17.6 SECONDS (9.4-12.5) H 12/12/17 08:00 INR 1.52 (0.93-1.08) H 12/12/17 08:00 APTT 33.5 Seconds (25.1-36.5) 12/12/17 08:00 - Constitutional Appears: Well, Non-toxic, No Acute Distress - Extremities Exam Additional comments: Bilateral LE exam VASC: DP/PT pulses are palpable 1/4, Cap refill time: < 3 sec to all digits, Temp gradient: warm to warm from proximal to distal b/l with moderate increase in warmth noted to RLE erytehma, 1+ pitting edema noted on the distal leg bilaterally DERM: Wound approx. 4 x 3 x 0.2cm noted on the proximomedial aspect of the left leg, wound base is mixed fibrogranular with periwound erythema and hyperpigmentation, no serous drainage, no purulent drainage, no active bleeding , no increase in warmth, no clinical suspicion of active infection, 2 small superficial wound present on the distal aspect of the right leg resolving, no drainage noted, no purulence noted, no tunneling, no undermining, no probe to bone. Erythema to RLE is resolving now extending from ankle joint proximally up to knee joint; resolved erythema in medial thigh. Nails 1-5 b/l thickened, elongated and dystrophic with the presence of subungual debris. NEURO: Protective sensation mildly diminished ORTHO: No pain on palpation of the ulcerated sites - Neurological Exam Neurological Exam: Alert, Awake, Oriented x3 - Psychiatric Exam Psychiatric exam: Normal Affect, Normal Mood Assessment and Plan - Assessment and Plan (Free Text) Assessment: 67 year old male with 1) Stage 3 non-pressure ulcer L leg, 2) RLE cellulitis resolving, 3) onychomycosis Plan: Patient seen and evaluated with attending Dr. Fernandez Afebrile Bilateral venous duplex: negative for DVT Bialteral arterial duplex: negative for significant arterial insufficiency Right leg Ccx: pseudomonas aeruginosa, MRSA Left leg cx: pseudomonas aeruginosa Continue local wound care: RLE kerlix + MICH wrap, LLE optifoam -Continue lotrisone BID bilateral LE Continue abx as per ID - Aztreonam, Linezolid Nails 1-5 b/l debrided in thickness and length without incident Podiatry will continue to follow
[2017-12-19] MEDS: Aztreonam 2 Gm in NS 100mL 100 ML IVPB SCH (06:04)
[2017-12-19] MEDS: Albuterol 0.083% Inhal Sol (2.5 mg/3 mL) UD INH SCH (07:32)
[2017-12-19 07:51] VITALS: BP 124/88; PULSE 78; TEMP 98.1; O2SAT 96
--- NOTE | 2017-12-19 08:11 | CP.PCM.PN ---
Subjective - Date & Time of Evaluation Date of Evaluation: 12/19/17 Time of Evaluation: 07:00 - Subjective Subjective: Stable on 5R. No CP or SOB. He feels better. He says cellulitis is improved. No weeping now. PT ongoing. He ambulated well yesterday. V/S noted. No fever. PE: Lungs: few rhonchi Cor: S1S2 Abd.: soft Ext.+ edema, RLE MICH wrapped. LLE bandage. Neuro.: alert I/O= [id number] recorded Labs 12/17 noted: K+= 5.2 Mg++ = 2.2 BC X 2 NG at 5 days Wound C+S: + Pseudo. and MRSA Echo: Severe LVD, EF ~ 20%, Mild and MR, Severe TR and PH Objective - Vital Signs/Intake and Output Vital Signs (last 24 hours): Temp Pulse Resp BP Pulse Ox 98.1 F 78 20 124/88 96 12/19/17 07:50 12/19/17 07:50 12/19/17 07:50 12/19/17 07:50 12/19/17 07:50 Intake and Output: 12/19/17 12/19/17 06:59 18:59 Intake Total 840 Output Total 550 Balance 290 - Medications Medications: Current Medications Acetaminophen (Tylenol 325mg Tab) 650 mg PO Q4H PRN PRN Reason: Fever >100.5 F Albuterol Sulfate (Albuterol 0.083% Inhal Leticia (2.5 Mg/3 Ml) Ud) 2.5 mg INH TIDRESP [facility] Last Admin: 12/19/17 07:32 Dose: 2.5 mg Amiodarone HCl (Cordarone) 200 mg PO DAILY [facility] Last Admin: 12/18/17 10:05 Dose: 200 mg Apixaban (Eliquis) 5 mg PO BID [facility] PRN Reason: Protocol Last Admin: 12/18/17 18:22 Dose: 5 mg Betamethasone/Clotrimazole (Lotrisone) 0 ml TOP BID [facility] Last Admin: 12/18/17 18:23 Dose: 1 applic Carvedilol (Coreg) 25 mg PO BID [facility] Last Admin: 12/18/17 18:22 Dose: 25 mg Furosemide (Lasix) 40 mg IVP DAILY [facility] Last Admin: 12/18/17 10:01 Dose: 40 mg Linezolid (Zyvox 600mg/300ml D5w) 600 mg in 300 mls @ 200 mls/hr IVPB Q12 [facility] PRN Reason: Protocol Stop: 12/20/17 10:16 Last Admin: 12/18/17 21:38 Dose: 200 mls/hr Aztreonam (Azactam 2 Gm) 100 mls @ 100 mls/hr IVPB Q8 [facility] PRN Reason: Protocol Stop: 12/21/17 14:01 Last Admin: 12/19/17 06:04 Dose: 100 mls/hr Losartan Potassium (Cozaar) 100 mg PO DAILY [facility] Last Admin: 12/18/17 10:04 Dose: 100 mg - Labs Labs: 12/17/17 06:40 12/17/17 06:40 PT 17.6 SECONDS (9.4-12.5) H 12/12/17 08:00 INR 1.52 (0.93-1.08) H 12/12/17 08:00 APTT 33.5 Seconds (25.1-36.5) 12/12/17 08:00 Assessment and Plan - Assessment and Plan (Free Text) Assessment: RLE weeping cellulitis with edema: + psedo., and MRSA, improving Non-healing wound LLE CCM, etoh related CHF, edema Chronic AF, on Eliquis ICD HBP H/O prostate cancer with seed implants TKR Cataracts Plan: As per ID and Podiatry AB> IV to PO AB as per ID. Continue IV Lasix and PO cardiac meds. OOB/PT as naty.
[2017-12-19 09:15] LABS: BLOOD UREA NITROGEN 23 mg/dL (7-21); CALCIUM 9.1 mg/dL (8.4-10.5); GFR AFRICAN-AMERICAN > 60; GFR NON-AFRICAN AMERICAN > 60
[2017-12-19] MEDS: Linezolid 600 mg in D5W 300 ml 600 MG/300 ML BAG IVPB SCH (09:18)
[2017-12-19] MEDS: Clotrimazole/Betamethasone Lotion(30 ml) TOP SCH (09:19)
--- NOTE | 2017-12-19 10:02 | CP.PCM.PN ---
Subjective - Date & Time of Evaluation Date of Evaluation: 12/19/17 Time of Evaluation: 09:59 - Subjective Subjective: Podiatry Progress note: Dr. Fernandez/Dr. Coyne 67 year old male seen and evaluated at bedside for bilateral leg wounds + cellulitis. Patient resting in bed comfortably at time of visit, NAD. No acute events overnight. Patient no longer has pain to bilateral LE. Dressings clean/ dry/intact. Aware he is to follow up with Dr. Fernandez in the wound care center once discharged. Denies N/V/F/D/C/SOB/MELVIN/dizziness. Offers no other complaints. Objective - Vital Signs/Intake and Output Vital Signs (last 24 hours): Temp Pulse Resp BP Pulse Ox 98.1 F 78 20 124/88 96 12/19/17 07:50 12/19/17 07:50 12/19/17 07:50 12/19/17 09:19 12/19/17 07:50 Intake and Output: 12/19/17 12/19/17 06:59 18:59 Intake Total 840 Output Total 550 Balance 290 - Medications Medications: Current Medications Acetaminophen (Tylenol 325mg Tab) 650 mg PO Q4H PRN PRN Reason: Fever >100.5 F Albuterol Sulfate (Albuterol 0.083% Inhal Leticia (2.5 Mg/3 Ml) Ud) 2.5 mg INH TIDRESP [facility] Last Admin: 12/19/17 07:32 Dose: 2.5 mg Amiodarone HCl (Cordarone) 200 mg PO DAILY [facility] Last Admin: 12/19/17 09:19 Dose: 200 mg Apixaban (Eliquis) 5 mg PO BID KELLY PRN Reason: Protocol Last Admin: 12/19/17 09:18 Dose: 5 mg Betamethasone/Clotrimazole (Lotrisone) 0 ml TOP BID [facility] Last Admin: 12/19/17 09:19 Dose: Not Given Carvedilol (Coreg) 25 mg PO BID [facility] Last Admin: 12/19/17 09:19 Dose: 25 mg Furosemide (Lasix) 40 mg IVP DAILY [facility] Last Admin: 12/19/17 09:18 Dose: 40 mg Linezolid (Zyvox 600mg/300ml D5w) 600 mg in 300 mls @ 200 mls/hr IVPB Q12 KELLY PRN Reason: Protocol Stop: 12/20/17 10:16 Last Admin: 12/19/17 09:18 Dose: 200 mls/hr Aztreonam (Azactam 2 Gm) 100 mls @ 100 mls/hr IVPB Q8 KELLY PRN Reason: Protocol Stop: 12/21/17 14:01 Last Admin: 12/19/17 06:04 Dose: 100 mls/hr Losartan Potassium (Cozaar) 100 mg PO DAILY [facility] Last Admin: 12/19/17 09:19 Dose: 100 mg - Labs Labs: 12/17/17 06:40 12/19/17 09:00 PT 17.6 SECONDS (9.4-12.5) H 12/12/17 08:00 INR 1.52 (0.93-1.08) H 12/12/17 08:00 APTT 33.5 Seconds (25.1-36.5) 12/12/17 08:00 - Constitutional Appears: Well, Non-toxic, No Acute Distress - Extremities Exam Additional comments: Bilateral LE exam VASC: DP/PT pulses are palpable 1/4, Cap refill time: < 3 sec to all digits, Temp gradient: cool to cool b/l with no increase in warmth to lower right leg, 1 + pitting edema noted on the distal leg bilaterally, improving DERM: Wound approx. 4 x 3 x 0.2cm noted on the proximomedial aspect of the left leg, wound base is mixed fibrogranular with minimal periwound erythema and hyperpigmentation, no serous drainage, no purulent drainage, no active bleeding , no increase in warmth, no clinical suspicion of active infection, 2 small superficial wound present on the distal aspect of the right leg resolved. Erythema to RLE has resolved. Brawny discoloration noted to bilateral legs. Nails 1-5 b/l thickened, dystrophic, length WNL. NEURO: Protective sensation mildly diminished ORTHO: No pain on palpation bilateral LE. - Neurological Exam Neurological Exam: Alert, Awake, Oriented x3 - Psychiatric Exam Psychiatric exam: Normal Affect, Normal Mood Assessment and Plan - Assessment and Plan (Free Text) Assessment: 67 year old male with 1) Stage 3 non-pressure ulcer L leg, 2) RLE cellulitis resolved, 3) onychomycosis Plan: Patient seen and evaluated with attending Dr. Fernandez Afebrile Bilateral venous duplex: negative for DVT Bialteral arterial duplex: negative for significant arterial insufficiency Right leg Ccx: pseudomonas aeruginosa, MRSA Left leg cx: pseudomonas aeruginosa Cellulitis to RLE has resolved Continue local wound care: optifoam to left leg wound Continue lotrisone BID bilateral LE Tubigrips applied to bilateral LE, may take them off at night Abx per ID Advised patient to follow up in wound care center s/p discharge Podiatry will continue to follow
--- NOTE | 2017-12-19 11:28 | CP.PCM.PN ---
Subjective - Date & Time of Evaluation Date of Evaluation: 12/19/17 Time of Evaluation: 11:05 - Subjective Subjective: Right leg feels better, less swollen, no fevers, no nausea, no diarrhea. Objective - Vital Signs/Intake and Output Vital Signs (last 24 hours): Temp Pulse Resp BP Pulse Ox 98.1 F 78 20 124/88 96 12/19/17 07:50 12/19/17 07:50 12/19/17 07:50 12/19/17 07:50 12/19/17 07:50 Intake and Output: 12/19/17 12/19/17 06:59 18:59 Intake Total 840 Output Total 550 Balance 290 - Medications Medications: Current Medications Acetaminophen (Tylenol 325mg Tab) 650 mg PO Q4H PRN PRN Reason: Fever >100.5 F Albuterol Sulfate (Albuterol 0.083% Inhal Leticia (2.5 Mg/3 Ml) Ud) 2.5 mg INH TIDRESP [facility] Last Admin: 12/19/17 07:32 Dose: 2.5 mg Amiodarone HCl (Cordarone) 200 mg PO DAILY [facility] Last Admin: 12/18/17 10:05 Dose: 200 mg Apixaban (Eliquis) 5 mg PO BID KELLY PRN Reason: Protocol Last Admin: 12/18/17 18:22 Dose: 5 mg Betamethasone/Clotrimazole (Lotrisone) 0 ml TOP BID [facility] Last Admin: 12/18/17 18:23 Dose: 1 applic Carvedilol (Coreg) 25 mg PO BID [facility] Last Admin: 12/18/17 18:22 Dose: 25 mg Furosemide (Lasix) 40 mg IVP DAILY [facility] Last Admin: 12/18/17 10:01 Dose: 40 mg Linezolid (Zyvox 600mg/300ml D5w) 600 mg in 300 mls @ 200 mls/hr IVPB Q12 KELLY PRN Reason: Protocol Stop: 12/20/17 10:16 Last Admin: 12/18/17 21:38 Dose: 200 mls/hr Aztreonam (Azactam 2 Gm) 100 mls @ 100 mls/hr IVPB Q8 KELLY PRN Reason: Protocol Stop: 12/21/17 14:01 Last Admin: 12/19/17 06:04 Dose: 100 mls/hr Losartan Potassium (Cozaar) 100 mg PO DAILY [facility] Last Admin: 12/18/17 10:04 Dose: 100 mg - Labs Labs: 12/17/17 06:40 12/17/17 06:40 PT 17.6 SECONDS (9.4-12.5) H 12/12/17 08:00 INR 1.52 (0.93-1.08) H 12/12/17 08:00 APTT 33.5 Seconds (25.1-36.5) 12/12/17 08:00 - Constitutional Appears: Non-toxic, Chronically Ill - Head Exam Head Exam: NORMAL INSPECTION - ENT Exam ENT Exam: Mucous Membranes Moist - Neck Exam Neck Exam: absent: Meningismus - Respiratory Exam Respiratory Exam: Decreased Breath Sounds. absent: Rales - Cardiovascular Exam Cardiovascular Exam: +S1, +S2 - GI/Abdominal Exam GI & Abdominal Exam: Soft. absent: Tenderness - Extremities Exam Additional comments: right leg with dressings in place Assessment and Plan - Assessment and Plan (Free Text) Plan: Assessment Consider right leg skin and skin structure infection, growing Pseudomonas and MRSA, clinically improved HTN COPD S/P pacemaker placement chronic atrial fibrillation on anticoagulation S/P right knee replacement chronic CHF Plan on Zyvox and Azactam day 7 to complete 7-10 days of therapy; reviewed wound cx, no DVT on duplex U/S and JANELLE's are normal patient will follow up with Podiatry as an outpatient discussed with Dr. Collins
--- NOTE | 2017-12-19 12:44 | PN ---
HISTORY OF PRESENT ILLNESS: This is a 67-year-old male, who came into the hospital, was found to have cellulitis with drainage from wound in the right leg. He had difficulty with walking. He had pain. He was discharged. He was placed on IV antibiotics. He had culture that showed Pseudomonas. He was treated with one week of antibiotics. He was not able to get oral antibiotics because of either resistance to antibiotics or because the antibiotics would cause a prolonged QT, and his EKG showed a QT that was prolonged. Patient has no complaints of any chest pain. No shortness of breath. No headaches or dizziness. He is able to ambulate better. He is walking better. PHYSICAL EXAMINATION: VITAL SIGNS: Temperature is 97.9, pulse is 71, blood pressure is 108/79, respirations 20. GENERAL: The patient is lying in bed, flat, comfortable. HEENT: No oral lesion. Anicteric sclerae. Moist mucosa. NECK: No JVD, adenopathy, or thyromegaly. CARDIOVASCULAR: S1 and S2, regular. No murmurs, rubs, or gallops. LUNGS: Clear to auscultation bilaterally. No wheeze, rales, or rhonchi. ABDOMEN: Bowel sounds are positive, soft, nontender and nondistended. EXTREMITIES: The right leg is covered with dressing. LABORATORY DATA: White count of 6.3, hemoglobin 12.6 and creatinine is 1.1. ASSESSMENT: 1. Right leg cellulitis secondary to Pseudomonas. 2. Hypertension. 3. Chronic obstructive pulmonary disease. 4. Atrial fibrillation, on anticoagulation. 5. Lower extremity edema, improved. PLAN: The patient has finished out his antibiotics. He is getting local wound care. He is going to follow up with Dr. Fernandez from Podiatry. The patient is on aztreonam for antibiotics. He is going to continue with amiodarone. He is on Cozaar for his hypertension. He is receiving Lasix daily. He is going to continue with linezolid. He is on a heart-healthy diet. CONDITION: Stable. ACTIVITIES: Increase as tolerated. FOLLOWUP: He sees Dr. Knott in [place] who is his primary doctor and he is going to see Dr. Meyer as well. Gerardo Mccormack MD [facility] # [id number]
== END 2017-12-19 13:25 | disposition home or self-care (01) | DRG 603 ==
LOC: ED 06:52 → ERH 09:52 → 5RSO 11:40
PROVIDERS: ADMIT Internal Medicine Nephrology; ATTEND Internal Medicine Nephrology
DX: L03.115 Cellulitis of right lower limb (principal); L97.929 Non-pressure chronic ulcer of unspecified part of left lower leg with unspecified severity; I50.22 Chronic systolic (congestive) heart failure; I42.0 Dilated cardiomyopathy; I11.0 Hypertensive heart disease with heart failure; B96.5 Pseudomonas (aeruginosa) (mallei) (pseudomallei) as the cause of diseases classified elsewhere; B95.62 Methicillin resistant Staphylococcus aureus infection as the cause of diseases classified elsewhere; I48.2 Chronic atrial fibrillation; J44.9 Chronic obstructive pulmonary disease, unspecified; I73.9 Peripheral vascular disease, unspecified; D64.9 Anemia, unspecified; H26.9 Unspecified cataract; B35.1 Tinea unguium; E66.9 Obesity, unspecified; Z68.29 Body mass index [BMI] 29.0-29.9, adult; Z79.01 Long term (current) use of anticoagulants; Z85.46 Personal history of malignant neoplasm of prostate; Z95.810 Presence of automatic (implantable) cardiac defibrillator; Z87.891 Personal history of nicotine dependence; Z96.651 Presence of right artificial knee joint

== ENCOUNTER 2018-01-28 13:16 | Inpatient (IN) | payer MEDICARE ==
[2018-01-28] MEDS ORDERED: Aztreonam 2 Gm in NS 100mL 100 ML IVPB STA (13:41)
[2018-01-28 13:56] LABS: VENOUS BLOOD GAS BASE EXCESS 11.5 mmol/L (0.0-2.0); VENOUS BLOOD GAS PO2 35 mm/Hg (30-55); VENOUS BLOOD PH 7.36 (7.32-7.43)
[2018-01-28 14:01] LABS: EOS % 0.3 % (1.5-5.0); GRAN # 9.82 (1.4-6.5); GRAN % 89.8 % (50.0-68.0); HEMOGLOBIN 12.9 g/dL (14.0-18.0); LYMPH # 0.6 (1.2-3.4); LYMPH % 5.2 % (22.0-35.0); MEAN CELL VOLUME 95.3 fl (80.0-105.0); MEAN CORPUSCULAR HEMOGLOBIN 30.6 pg (25.0-35.0); MEAN CORPUSCULAR HGB CONC 32.1 g/dl (31.0-37.0); MEAN PLATELET VOLUME 10.1 fl (7.0-11.0); MONO # 0.5 (0.1-0.6); MONO % 4.7 % (1.0-6.0); RBC 4.22 10^6/uL (3.5-6.1); RED CELL DISTRIBUTION WIDTH 17.7 % (11.5-14.5); WHITE BLOOD COUNT 10.9 10^3/ul (4.5-11.0)
--- NOTE | 2018-01-28 14:03 | ED PDOC ---
Arrival/HPI - General Chief Complaint: Shortness Of Breath Time Seen by Provider: 01/28/18 13:29 Historian: Patient - History of Present Illness Narrative History of Present Illness (Text): 01/28/18 13:41 67 year old male, with past medical history of hypertension, questionable COPD, CHF (2 water pills daily), pacemaker, and atrial fibrillation, presents to the Emergency Department complaining of shortness of breath, dyspnea on exertion and worsening lower extremity swelling since a week and a half. Patient informs prior similar symptoms that required multiple admissions. Patient was recently admitted to [facility] and prior to that, [facility] in December 2017. Patient receives wound care by Dr. Fernandez. No abx were started recently; Dr. Fernandez became alarmed last 24 hours for worsening of lower extremity cellulitis and instructed patient to come to Emergency Department for admission yesterday. Patient informs worsening swelling over last week and a half which now progressed to his lower testes. 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 Fernandez) Past Medical History - Provider Review Nursing Documentation Reviewed: Yes - Travel History Have you recently traveled outside [place] w/in the past 3 mons?: No - Past History Past History: No Previous - Infectious Disease Hx of Infectious Diseases: MRSA - Cardiac Hx Cardiac Disorders: Yes Hx Congestive Heart Failure: Yes Hx Hypertension: Yes - Pulmonary Hx Chronic Obstructive Pulmonary Disease (COPD): Yes - Neurological Hx Neurological Disorder: No - HEENT Hx HEENT Disorder: No - Renal Hx Renal Disorder: No - Hematological/Oncological Hx Blood Disorders: No - Musculoskeletal/Rheumatological Hx Musculoskeletal Disorders: Yes Hx Degenerative Joint Disease: Yes Hx Falls: Yes (fell 11/29/17) Hx Unsteady Gait: Yes - Gastrointestinal Hx Gastrointestinal Disorders: No - Genitourinary/Gynecological Hx Prostate Problems: Yes (Seeds in prostate) - Psychiatric Hx Psychophysiologic Disorder: No Hx Substance Use: No - Surgical History Hx Joint Replacement: Yes (right knee left hip) - Anesthesia Hx Anesthesia Reactions: No - Suicidal Assessment Feels Threatened In Home Enviroment: No Family/Social History - Physician Review Nursing Documentation Reviewed: Yes Family/Social History: No Known Family HX Smoking Status: Never Smoked Hx Alcohol Use: Yes Hx Substance Use: No Hx Substance Use Treatment: No Allergies/Home Meds Allergies/Adverse Reactions: Allergies Penicillins Allergy (Mild, Verified 12/12/17 07:48) ANAPHYLAXIS Home Medications: Home Meds Medication Instructions Recorded Confirmed Carvedilol 25 mg PO BID 08/11/14 12/12/17 Valsartan-Hydrochlorothiazide 12.5 1 tab PO DAILY 08/11/14 12/12/17 mg-320 mg Apixaban [Eliquis] 5 mg PO DAILY 12/12/17 12/12/17 Cholecalciferol [Vitamin D 1000 IU] 50,000 mg PO DAILY 12/12/17 12/12/17 Furosemide [Lasix] 40 mg PO BID 12/12/17 12/12/17 oxyCODONE/Acetaminophen [Percocet 5 mg PO TID PRN 12/12/17 12/12/17 5/325 mg Tab] Review of Systems - Physician Review All systems were reviewed & negative as marked: Yes - Review of Systems Constitutional: Normal. absent: Fevers Eyes: Normal ENT: Normal Respiratory: SOB, Other (SHERIDAN) Cardiovascular: Edema (builateral lower extremity swelling), SHERIDAN. absent: Chest Pain, Palpitations, Syncope Gastrointestinal: Normal. absent: Abdominal Pain, Stool Changes, Constipation, Diarrhea, Nausea, Vomiting Genitourinary Male: Normal. absent: Urinary Output Changes Musculoskeletal: Normal Skin: Cellulitis Neurological: Normal Endocrine: Normal Hemo/Lymphatic: Normal Psychiatric: Normal Physical Exam - Physical Exam Narrative Physical Exam (Text): 01/28/18 14:07 General: alert/awake, GCS = 15, oriented x 3, resting in bed, uncomfortable, cooperative, interactive; NAD Head: NC/AT EYE: PERRLA, EOMI, sclera anicteric, no nystagmus, no photophobia; visual field intact b/l Facial: WNL Oral: uvula/tongue are midline, no exudate/lesions, no drooling/stridor, no dysphonia; fair dentitions, mild dry oral mucosa NECK: intact ROM, no midline tenderness, no nuchal rigidity, no meningeal signs ; no step off; no obvious JVD noted b/l Chest: coarse breath sounds noted b/l, + rales bilaterally, no rhonchi/wheezing noted, + faint tachypenia, no accessory muscle use noted Cardiac: +S1, +S2, no m/r/r, no tachycardia Abdominal: +BS, soft/nd/nt, well nourished patient; no masses/rebound/guarding/ rigidity; no reyes's sign, no mcburney's point tenderness Extremities: extensive pitting edema (+4/5) up to upper thigh b/l; with right leg swelling >> left noted; skin erythema noted b/l lower ext with right lower extremity worse than left extending proximally up to b/l knee; + proximal medial left lower extremity wound noted; No jenelle's sign; intact ROM, strength 5 -/5 grossly intact in all limbs, neurovasc intact b/l; no gross deformities noted : + b/l scrotal swelling/edema noted BACK: no step off, no midline tenderness, NO crepitus, no gross deformities noted; Intact ROM SKIN: cap refill ~ 1 sec, no ulcerations, no petechiae, no rashes; as described above leg erythema/cellulitis NEURO: CNII-XII WNL, no facial asymmetries, no slurr speech, oriented x 3 NIH stroke scale ~ 0 Psych: normal insight, normal affect; follows command with ease Vital Signs Reviewed: Yes Vital Signs Temp Pulse Resp BP Pulse Ox 01/28/18 17:20 98.9 F 86 18 138/82 98 01/28/18 13:57 123/71 01/28/18 13:33 95.9 F L 72 20 123/70 94 L Temperature: Hypothermic Blood Pressure: Normal Pulse: Regular Respiratory Rate: Normal Appearance: Positive for: Well-Appearing, Non-Toxic, Uncomfortable, Other (alert /awake, GCS = 15, oriented x 3, resting in bed, NAD, uncomfortable, cooperative) Pain Distress: None Mental Status: Positive for: Alert and Oriented X 3 Medical Decision Making ED Course and Treatment: 01/28/18 13:26 Impression: 67 year old male presents to the Emergency Department for shortness of breath, SHERIDAN and worsening lower extremity swelling. I have considered all of the differential diagnostics regarding patient's chief medical complaints/ clinical findings, including but not limited to: r/o CHF, r/o infection, r/o cellulitis, r/o dvt Plan: -- VBG -- EKG -- Labs -- Chest X-ray -- LAsix -- Albutrol -- Aztrenom -- Blood Culture -- Urine Culture -- Urinalysis -- US of Lower Extremity -- Reassess and disposition Progress Notes: 01/28/18 13:52 Dr. Mccormack made aware of patient's emergent complaints and emergency department management. Is agreeable with emergency department plan and suggests admission to medical service field application engineer. 1450 pt is doing well currently pt denied chest pain pt denied pain currently pt is awaiting lab results/diagnostic results 01/28/18 15:36 Dr. Tran, medical service field application engineer made aware of patient's emergent complaints, diagnostic finds, and emergency department management. Is agreeable with emergency department recommendation for admission/observation placement. pt is made aware of his medical results agrees with admission pt denied chest pain pt is currently comfortable Re-evaluation Time: 16:30 Reassessment Condition: Improving,but remains with symptoms - Critical Care Critical Care Minutes: 45 minutes Critical Care Time: Excluding Proc Time Narrative Critical Care (Text): 01/28/18 18:05 critical care time: 45min, excluding procedure time, excluding time teaching residents/students/mid-level providers; including initial eval/diagnosis, diagnostic interpretation, re-eval, consultations, final disposition - Lab Interpretations Lab Results: 01/28/18 13:45 01/28/18 13:45 Lab Results 01/28/18 13:53: pO2 35, VBG pH 7.36, VBG pCO2 71.0 H*, VBG HCO3 40.1 H, VBG Total CO2 42.3 H, VBG O2 Sat (Calc) 69.5 H, VBG Base Excess 11.5 H, VBG Potassium 3.5 L, Glucose 95, Lactate 1.3, FiO2 21.0, Sodium 131.0 L, Chloride 91.0 L, Venous Blood Potassium 3.5 L 01/28/18 13:45: Sodium 136, Potassium 3.4 L, Chloride 88 L, Carbon Dioxide 39 H , Anion Gap 14, BUN 25 H, Creatinine 1.0, Est GFR ( Amer) > 60, Est GFR ( Non-Af Amer) > 60, Random Glucose 89, Calcium 8.5, Phosphorus 3.3, Magnesium 2.1 , Total Bilirubin 2.5 H, AST 26, ALT 34, Alkaline Phosphatase 145 H, Troponin I 0.02, NT-Pro-B Natriuret Pep 7840 H, Total Protein 6.4, Albumin 3.4, Globulin 3.0, Albumin/Globulin Ratio 1.1 01/28/18 13:45: WBC 10.9 D, RBC 4.22, Hgb 12.9 L, Hct 40.2 L, MCV 95.3, MCH 30.6, MCHC 32.1, RDW 17.7 H, Plt Count 153, MPV 10.1, Gran % 89.8 H, Lymph % ( Auto) 5.2 L, [place] % (Auto) 4.7, Eos % (Auto) 0.3 L, Baso % (Auto) 0.0, Gran # 9.82 H, Lymph # (Auto) 0.6 L, [place] # (Auto) 0.5, Eos # (Auto) 0.0, Baso # (Auto ) 0.00 I have reviewed the lab results: Yes Interpretation: Abnormal lab values (elevated BNP) - RAD Interpretation Narrative RAD Interpretations (Text): 01/28/18 15:01 Chest X-ray reviewed by radiologist, shows: FINDINGS: LUNGS: The lateral right mid lung zone low-density opacity projecting over right rib fracture some old possibly some more subacute appearing is noted PLEURA: , no pneumothorax apparent. Right inferolateral mild pleural thickening with interval right pleural effusion. The effusion is no greater than 1/4 the height of the right hemithorax. The left inferolateral costophrenic angles more blunted in appearance interval small left pleural effusion and or interval left inferolateral pleural thickening reaction suggested CARDIOVASCULAR: Cardiomegaly right heart enlargement suggested. AICD device in place. OSSEOUS STRUCTURES: Right rib fractures -as above more conspicuous on the prior 12/12/2017 study. VISUALIZED UPPER ABDOMEN: Normal. OTHER FINDINGS: None. IMPRESSION: The right mid lung zone low-density opacity projecting over right mid level rib fractures is less conspicuous here interval improved aeration suggested. Interval right pleural effusion suggested some concomitant right mild passive compressive atelectasis and/or minimal infiltrate here possible. Cardiomegaly especially right heart enlargement inferred. AICD device in place. Interval small left pleural effusion and/or interval left inferolateral mild pleural parenchymal thickening/pathology 01/28/18 16:24 Ultrasound of Lower extremity preliminary results reviewed, shows no DVT bilaterally. Radiology Orders: 01/28/18 13:41 CHEST PORTABLE [RAD] Stat 01/28/18 13:45 DUPLEX LOWER EXTRM VEIN BILAT [US] Stat Petroleum Production Engineer: Radiologist - EKG Interpretation EKG Interpretation (Text): 01/28/18 18:48 Paced rhythm at 80 bpm, abnl EKG; no gross changes compare with old ekg 12/2017 Interpreted by ED Physician: Yes Type: 12 lead EKG Comparison: Similar to previous EKG - Medication Orders Current Medication Orders: Acetaminophen (Tylenol 325mg Tab) 650 mg PO Q6H PRN PRN Reason: Fever >100.4 F Albuterol/Ipratropium (Duoneb 3 Mg/0.5 Mg (3 Ml) Ud) 3 ml IH Q4H PRN PRN Reason: Shortness of Breath Amiodarone HCl (Cordarone) 200 mg PO DAILY KELLY Apixaban (Eliquis) 5 mg PO BID KELLY PRN Reason: Protocol Carvedilol (Coreg) 25 mg PO BID KELLY Cholecalciferol (Vitamin D) 1,000 intlu PO DAILY KELLY Furosemide (Lasix) 40 mg IVP BID KELLY Linezolid (Zyvox 600mg/300ml D5w) 600 mg in 300 mls @ 200 mls/hr IVPB Q12 KELLY PRN Reason: Protocol Stop: 01/28/18 23:29 Aztreonam (Azactam 2 Gm) 100 mls @ 100 mls/hr IVPB Q8 KELLY PRN Reason: Protocol Stop: 01/29/18 06:59 Lorazepam (Ativan) 2 mg IVP Q4H PRN; Protocol PRN Reason: Symptoms of alcohol withdrawl Losartan Potassium (Cozaar) 100 mg PO DAILY KELLY Oxycodone/Acetaminophen (Percocet 5/325 Mg Tab) 5 tab PO TID PRN PRN Reason: Pain, severe (8-10) Stop: 01/31/18 17:05 Discontinued Medications Albuterol/Ipratropium (Duoneb 3 Mg/0.5 Mg (3 Ml) Ud) 3 ml IH STAT STA Stop: 01/28/18 14:06 Last Admin: 01/28/18 16:55 Dose: 3 ml Apixaban (Eliquis) 5 mg PO DAILY KELLY PRN Reason: Protocol Furosemide (Lasix) 80 mg IVP STAT STA Stop: 01/28/18 13:45 Last Admin: 01/28/18 13:57 Dose: 80 mg MAR Blood Pressure Document 01/28/18 13:57 HP (Rec: 01/28/18 13:57 [id number] Blood Pressure Blood Pressure (100/60-150/90) 123/71 IVP Administration Document 01/28/18 13:57 HP (Rec: 01/28/18 13:57 HP [id number]) Charges for Administration # of IVP Administrations 1 Aztreonam (Azactam 2 Gm) 100 mls @ 100 mls/hr IVPB STAT STA PRN Reason: Protocol Stop: 01/28/18 14:40 Last Admin: 01/28/18 15:52 Dose: 100 mls/hr eMAR Start Stop Document 01/28/18 15:52 HP (Rec: 01/28/18 15:53 HP [id number]) Intravenous Solution Start Date 01/28/18 Start Time 15:52 End Date 01/28/18 End time 16:52 Total Infusion Time 60 Linezolid (Zyvox 600mg/300ml D5w) 600 mg in 300 mls @ 200 mls/hr IVPB ONCE ONE PRN Reason: Protocol Stop: 01/28/18 17:05 Last Admin: 01/28/18 16:55 Dose: 200 mls/hr eMAR Start Stop Document 01/28/18 16:55 HP (Rec: 01/28/18 16:55 HP [facility] [place] [facility]-[id number]) Intravenous Solution Start Date 01/28/18 Start Time 16:55 End Date 01/28/18 End time 18:25 Total Infusion Time 90 - Scribe Statement The provider has reviewed the documentation as recorded by the Scribe Zarina Rod. All medical record entries made by the Scribe were at my direction and personally dictated by me. I have reviewed the chart and agree that the record accurately reflects my personal performance of the history, physical exam, medical decision making, and the department course for this patient. I have also personally directed, reviewed, and agree with the discharge instructions and disposition. Disposition/Present on Arrival - Present on Arrival Any Indicators Present on Arrival: No History of DVT/PE: No History of Uncontrolled Diabetes: No Urinary Catheter: No History of Decub. Ulcer: No History Surgical Site Infection Following: None - Disposition Have Diagnosis and Disposition been Completed?: Yes Diagnosis: Acute on chronic congestive heart failure, Lower extremity edema, Cellulitis, leg, Weakness Disposition: HOSPITALIZED Disposition Time: 15:45 Patient Plan: Admission, Telemetry Patient Problems: Current Active Problems Problem Status Onset Acute on chronic congestive heart failure Acute Cellulitis, leg Acute Lower extremity edema Acute Weakness Acute Condition: STABLE
[2018-01-28] MEDS ORDERED: Albuterol-Ipratrop 3 mg / 0.5 (3 ml) UD IH STA (14:05)
[2018-01-28 14:15] LABS: ALB/GLOB RATIO 1.1 (1.1-1.8); ALBUMIN 3.4 g/dL (3.0-4.8); ALT/SGPT 34 U/L (7-56); AST/SGOT 26 U/L (17-59); BLOOD UREA NITROGEN 25 mg/dL (7-21); CALCIUM 8.5 mg/dL (8.4-10.5); GFR AFRICAN-AMERICAN > 60; GFR NON-AFRICAN AMERICAN > 60
[2018-01-28 14:25] LABS: B-TYPE NATRIURETIC PEPTIDE 7840 pg/mL (0-450); TROPONIN I 0.02 ng/mL
--- NOTE | 2018-01-28 14:55 | RAD ---
HISTORY: Sepsis Patient COMPARISON: 12/12/2017 FINDINGS: LUNGS: The lateral right mid lung zone low-density opacity projecting over right rib fracture some old possibly some more subacute appearing is noted PLEURA: , no pneumothorax apparent. Right inferolateral mild pleural thickening with interval right pleural effusion. The effusion is no greater than 1/4 the height of the right hemithorax. The left inferolateral costophrenic angles more blunted in appearance interval small left pleural effusion and or interval left inferolateral pleural thickening reaction suggested CARDIOVASCULAR: Cardiomegaly right heart enlargement suggested. AICD device in place. OSSEOUS STRUCTURES: Right rib fractures -as above more conspicuous on the prior 12/12/2017 study. VISUALIZED UPPER ABDOMEN: Normal. OTHER FINDINGS: None. IMPRESSION: The right mid lung zone low-density opacity projecting over right mid level rib fractures is less conspicuous here interval improved aeration suggested. Interval right pleural effusion suggested some concomitant right mild passive compressive atelectasis and/or minimal infiltrate here possible. Cardiomegaly especially right heart enlargement inferred. AICD device in place. Interval small left pleural effusion and/or interval left inferolateral mild pleural parenchymal thickening/pathology
[2018-01-28] MEDS ORDERED: Linezolid 600 mg in D5W 300 ml 600 MG/300 ML BAG IVPB ONE (15:36)
[2018-01-28 16:23] LABS: INR 2.04 (0.93-1.08); PARTIAL THROMBOPLASTIN TIME 36.7 Seconds (25.1-36.5); PROTHROMBIN TIME 23.6 SECONDS (9.4-12.5)
[2018-01-28] MEDS ORDERED: Oxycodone/Acetaminophen 5/325 mg Tab PO PRN ×3 (17:04→21:53)
[2018-01-28] MEDS ORDERED: Albuterol-Ipratrop 3 mg / 0.5 (3 ml) UD IH PRN (17:09)
--- NOTE | 2018-01-28 17:28 | CP.PCM.HP ---
<Sohail Garza - Last Filed: 01/29/18 06:23> History of Present Illness - History of Present Illness History of Present Illness: PGY1 Medicine H+P for Dr. Thorne Patient is a 67 year old male with a past medical history of hypertension, COPD , CHF (s/p pacemaker), afib (on Eliquis) presenting to the hospital with shortness of breath, dyspnea on exertion and worsening lower extremity. The patient was recently admitted at [facility] on 12/12/17 for right leg cellulitis, which was treated for 7 days with IV abx. Patient reports he was [place] [facility] [place] at [facility] for his right leg cellulits. He was treated inpatient for approximately 6 days of abx before being discharged. The patient has been following with Dr. Fernandez for wound care when she had instructed the patient to come to the emergency room. The patient's lower extremities have been increasing in size and have began to weep. The patient's is at bedside and states that the patient is not compliant with his diet it home, particularly his fluid intake. The patient admits that he drinks as much fluids as he wants and has meals high in salt. He is no longer able to tolerate laying flat on his back and has been sleeping on a recliner for years. He is able to walk on his own without assistance but has began to be becoming increasing short of breath with exertion over the past week. He is unable to walk one block without becoming short of breath. Denies fevers, chills, nausea, vomiting , diarrhea, constipation, chest pain, palpitations, abdominal pain, headaches, vision changes, numbness or tingling. 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 absent: Palpitations - Respiratory Respiratory: Cough, Dyspnea on Exertion, Snoring - Gastrointestinal Gastrointestinal: As Per HPI - Genitourinary Genitourinary: As Per HPI - Musculoskeletal Musculoskeletal: As Per HPI - Integumentary Integumentary: As Per HPI - Neurological Neurological: As Per HPI - Psychiatric Psychiatric: As Per HPI - Endocrine Endocrine: As Per HPI - Hematologic/Lymphatic Hematologic: As Per HPI Past Patient History - Past Social History Smoking Status: Never Smoked - CARDIAC Hx Cardiac Disorders: Yes Hx Congestive Heart Failure: Yes Hx Hypertension: Yes - PULMONARY Hx Chronic Obstructive Pulmonary Disease (COPD): Yes - NEUROLOGICAL Hx Neurological Disorder: No - HEENT Hx HEENT Problems: No - RENAL Hx Chronic Kidney Disease: No - HEMATOLOGICAL/ONCOLOGICAL Hx Blood Disorders: No - MUSCULOSKELETAL/RHEUMATOLOGICAL Hx Musculoskeletal Disorders: Yes Hx Degenerative Joint Disease: Yes Hx Falls: Yes (fell 11/29/17) Hx Unsteady Gait: Yes - GASTROINTESTINAL Hx Gastrointestinal Disorders: No - GENITOURINARY/GYNECOLOGICAL Hx Prostate Problems: Yes (Seeds in prostate) - PSYCHIATRIC Hx Psychophysiologic Disorder: No Hx Substance Use: No - SURGICAL HISTORY Hx Joint Replacement: Yes (right knee left hip) - ANESTHESIA Hx Anesthesia Reactions: No Meds Allergies/Adverse Reactions: Allergies Allergy/AdvReac Type Severity Reaction Status Date / Time Penicillins Allergy Mild ANAPHYLAXIS Verified 01/28/18 19:26 Physical Exam - Constitutional Appears: Non-toxic, Older Than Stated Age - Head Exam Head Exam: ATRAUMATIC, NORMOCEPHALIC - Eye Exam Eye Exam: EOMI, Normal appearance - ENT Exam ENT Exam: Mucous Membranes Moist, Normal Oropharynx Additional comments: telangiectasia on nose voice is horse - Neck Exam Neck exam: Negative for: Lymphadenopathy, Tenderness - Respiratory Exam Respiratory Exam: Decreased Breath Sounds (bases b/l), NORMAL BREATHING PATTERN. absent: Accessory Muscle Use, Rales, Rhonchi, Wheezes, Respiratory Distress - Cardiovascular Exam Cardiovascular Exam: REGULAR RHYTHM, +S1, +S2 - GI/Abdominal Exam GI & Abdominal Exam: Normal Bowel Sounds, Soft. absent: Distended, Firm, Guarding, Hernia, Rigid, Tenderness - Extremities Exam Extremities exam: Positive for: pedal edema (extends up to mid-thigh b/l), pedal pulses present. Negative for: calf tenderness Additional comments: Chronic skin changes on LE b/l - erythema believed to be due to increased swelling legs are weeping serious fluid punched out healing lesion with clean base/granular tissue - 2 cm x 2 cm - per patient, ulcer is healing - Neurological Exam Neurological exam: Alert, CN II-XII Intact, Oriented x3 - Psychiatric Exam Psychiatric exam: Normal Affect, Normal Mood - Skin Skin Exam: Dry, Warm Results - Vital Signs Recent Vital Signs: Last Vital Signs Temp 95.9 F L 01/28/18 13:33 Pulse 72 01/28/18 13:33 Resp 20 01/28/18 13:33 BP 123/71 01/28/18 13:57 Pulse Ox 94 L 01/28/18 13:33 - Labs Result Diagrams: 01/28/18 13:45 01/28/18 13:45 Labs: Laboratory Results - last 24 hr 01/28/18 15:50 PT 23.6 H INR 2.04 H APTT 36.7 H Assessment & Plan - Assessment and Plan (Free Text) Assessment: Patient is a 67 year old male with a past medical history of hypertension, COPD , CHF (s/p pacemaker), afib (on Eliquis) presenting to the hospital with shortness of breath, dyspnea on exertion and worsening lower extremity. Appears to be acute CHF exacerbation and healing cellulitis on left riggins. Plan: Acute on Chronic CHF exacerbation - systolic dysfunction Cardiology consulted, Dr. Meyer - help appreciated CXR 01/28 - The right mid lung zone low-density opacity projecting over right mid level rib fractures is less conspicuous here interval improved aeration suggested. Interval right pleural effusion suggested some concomitant right mild passive compressive atelectasis and/or minimal infiltrate here possible. Cardiomegaly especially right heart enlargement inferred. AICD device in place. Interval small left pleural effusion and/or interval left inferolateral mild pleural parenchymal thickening/pathology. Recent ECHO 12/09 - LVEF ~20%, severe global hypokinesis, AV mod. calcified, severe pulm hypertension, mild MR, severe TR Blood Culture - f/u Urine Culture - f/u Coreg 25mg PO BID Lasix 40mg IVP BID Amiodarone 200mg PO daily Right LE Cellulitis ID consulted, Dr. Bernabe - help appreciated Podiatry consulted, Dr. Fernandez - help appreciated US of LE b/l - No sonographic evidence for deep venous thrombosis in the visualized segments of both lower extremities Linezolid 600mg IVPB q12h (started on 01/28) Aztreonam 1gm IVPB q8h (started on 01/28) Hx of Alcohol Abuse CIWA protocol Ativan 2mg IVP q4h prn Thiamine 100mg PO daily Folic Acid 1mg PO daily COPD Duoneb 3mL q6h prn Hypertension Continue home medications: * Losartan 100mg PO daily * Coreg 25mg PO BID Hx of afib Continue home medications: * Eliquis 5mg PO BID * Amiodarone 200mg PO daily Chronic Pain Percocet 5/325mg 1 tab PO TID prn UDS - f/u Prophylactic Care DVT - Eliquis 5mg PO daily GI - Protonix 40mg PO daily Case discussed with Dr. Mati Garza PGY1 - Date & Time Date: 01/28/18 Time: 19:35 <Melissa Thorne - Last Filed: 01/30/18 13:26> Results - Vital Signs Recent Vital Signs: Last Vital Signs Temp 97.2 F L 01/30/18 06:00 Pulse 86 01/30/18 10:33 Resp 21 01/30/18 06:00 BP 100/74 01/30/18 10:34 Pulse Ox 95 01/30/18 06:00 - Labs Result Diagrams: 01/30/18 06:20 01/30/18 06:20 Labs: Laboratory Results - last 24 hr 01/30/18 01/30/18 01/30/18 00:55 06:20 06:20 WBC 7.6 RBC 4.52 Hgb 13.9 L Hct 43.9 MCV 97.1 MCH 30.8 MCHC 31.7 RDW 17.5 H Plt Count 174 MPV 10.0 Gran % 82.2 H Lymph % (Auto) 7.7 L [place] % (Auto) 8.0 H Eos % (Auto) 2.0 Baso % (Auto) 0.1 Gran # 6.28 Lymph # (Auto) 0.6 L [place] # (Auto) 0.6 Eos # (Auto) 0.2 Baso # (Auto) 0.01 Sodium 133 Potassium 4.5 Chloride 90 L Carbon Dioxide 33 Anion Gap 15 BUN 25 H Creatinine 1.1 Est GFR ( Amer) > 60 Est GFR (Non-Af Amer) > 60 Random Glucose 100 Calcium 8.3 L Total Bilirubin 1.1 AST 25 ALT 31 Alkaline Phosphatase 140 H Total Protein 6.5 Albumin 3.5 Globulin 3.0 Albumin/Globulin Ratio 1.2 Urine Opiates Screen Negative Urine Methadone Screen Negative Ur Barbiturates Screen Negative Ur Phencyclidine Scrn Negative Ur Amphetamines Screen Negative U Benzodiazepines Scrn Negative U Oth Cocaine Metabols Negative U Cannabinoids Screen Negative Attending/Attestation - Attestation I have personally seen and examined this patient.: Yes I have fully participated in the care of the patient.: Yes I have reviewed all pertinent clinical information: Yes Notes (Text): I have seen and examined the patient at bedside. Agree with the above note with the following additions/ exceptions: Briefly this is 67 M w h/o copd, HTN, chronic afib on eliquis, R knee replacement, severe TR, severe PH, alcoholic CMP (EF20%), active drinker, AICD, prostate ca w seed implants came with anasarca, CHF exacerbation and LE cellulitis vs venous stasis. She was given 80 lasix in ED and was resumed on cozaar, lasix, coreg, amio and eliquis. Also has LE cellulitis on azactam and zyvox. Last time wound cx grew pseudomonas and MRSA. ID, podiatry and cardio consulted.
--- NOTE | 2018-01-28 19:11 | US ---
HISTORY: Leg pain and swelling. Evaluate for DVT PHYSICIAN(S): Richy Aguirre MD. TECHNIQUE: Duplex sonography and color-flow Doppler with graded compression were used to evaluate the deep venous systems of both lower extremities. The exam is somewhat limited by edema FINDINGS: The visualized deep venous systems of both lower extremities are sonographically normal and compressible. Normal wave forms and augmentation are seen. There is no sonographic evidence for deep venous thrombosis in the visualized segments of both lower extremities. IMPRESSION: No sonographic evidence for deep venous thrombosis in the visualized segments of both lower extremities.
[2018-01-28] MEDS ORDERED: Potassium Chloride 20 mEq ER Tab PO STA ×2 (19:19→22:07)
[2018-01-28 21:35] LABS: URINE BILIRUBIN NEGATIVE (NEGATIVE); URINE BLOOD NEGATIVE (NEGATIVE); URINE GLUCOSE (UA) NEGATIVE (NEGATIVE); URINE LEUKOCYTE ESTERASE NEGATIVE Leu/uL (NEGATIVE); URINE PROTEIN NEGATIVE mg/dL (<30 mg/dL)
[2018-01-28 21:36] LABS: URINE COLOR YELLOW (YELLOW)
[2018-01-28 21:37] LABS: URINE APPEARANCE CLEAR (CLEAR)
[2018-01-28] MEDS ORDERED: Aztreonam 2 Gm in NS 100mL 100 ML IVPB SCH (22:00)
[2018-01-28] MEDS ORDERED: Linezolid 600 mg in D5W 300 ml 600 MG/300 ML BAG IVPB SCH (22:00)
[2018-01-28] MEDS: Aztreonam 1 Gm in NS 100mL 100 ML IVPB SCH (22:02)
[2018-01-28] MEDS ORDERED: Pneumococcal 23-Valent Vaccine IM ONE (22:37)
[2018-01-28 22:38] VITALS: BMI 32.1
[2018-01-28] MEDS: Linezolid 600 mg in D5W 300 ml 600 MG/300 ML BAG IVPB SCH (23:13)
--- NOTE | 2018-01-29 05:08 | CON ---
DATE: 01/28/2018 LOCATION: Patient is in room 267, bed 2. CHIEF COMPLAINT: Lower extremity edema and erythema and shortness of breath. HISTORY OF PRESENT ILLNESS: This is a 67-year-old male with recent hospitalization a month ago, had MRSA and Pseudomonas to the right leg and congestive heart failure with hypertension, chronic obstructive lung disease, congestive heart failure which is atrial fibrillation and peripheral vascular disease who was allergic to penicillin and become a syncopal episode with penicillin. We will also has a pacemaker and had a left ORIF and a prostate seeding placement and a right knee replacement and now admitted with shortness of breath, found to have congestive heart failure and also lower extremity erythema and edema more in the right leg than the left. He denies any fevers and chills. No chest pain. There is shortness of breath. No hemoptysis. No abdominal pain, diarrhea or constipation. PAST MEDICAL HISTORY: Significant for hypertension, prostate cancer, chronic obstructive lung disease, congestive heart failure, atrial fibrillation, sleep apnea, recent diagnosis of right leg Pseudomonas and MRSA infection and peripheral vascular disease. PAST SURGICAL HISTORY: Significant for pacemaker, prostate seeds, left ORIF and the right knee replacement. ALLERGIES: THE PATIENT IS ALLERGIC TO PENICILLIN. HE STATES THAT A SYNCOPAL EPISODE WITH IT. MEDICATIONS AT HOME: Reveals the patient to be on oxycodone, vitamins, carvedilol, Eliquis, and Lasix. PHYSICAL EXAMINATION: GENERAL: He is in bed and poor personal hygiene. VITAL SIGNS: With a temperature of 98, low temperature was 95.9. Pulse of 86, respiratory rate of 18 to 20, and the blood pressure is 108/70. HEENT: Unremarkable. NECK: Supple. LUNGS: Have decreased breath sounds. HEART: Normal S1, S2. ABDOMEN: Soft, nontender. EXTREMITIES: Examination of the lower extremities, bilateral lower extremity edema and erythema. Right leg is warm to touch and has evidence of infection. The left leg has an ulcer. LABORATORY EXAMINATION: Reveals the white count to be 10.9, hemoglobin of 12, platelets are 153. Chemistries reveals the BNP is over 7000. History and physical examination is noted. ASSESSMENT AND PLAN: A 67-year-old male with prostate cancer, hypertension, chronic obstructive lung disease, congestive heart failure with atrial fibrillation and with history of methicillin-resistant Staphylococcus aureus and Pseudomonas to right leg, now presenting with: 1. Bilateral lower extremity cellulitis, right leg greater than the left with a left leg ulcer in a patient with acute systolic congestive heart failure on top of chronic congestive heart failure and was allergic to penicillin. We will treat the patient with Zyvox and Azactam. 2. Treatment of the heart failure as per Cardiology. We will check on the blood culture, urine culture and we will make further recommendations. Jesús Bernabe MD
[2018-01-29] MEDS: Aztreonam 1 Gm in NS 100mL 100 ML IVPB SCH ×3 (05:11→21:55)
[2018-01-29 06:52] LABS: EOS # 0.1 (0.0-0.7); EOS % 0.9 % (1.5-5.0); GRAN # 6.63 (1.4-6.5); GRAN % 85.2 % (50.0-68.0); HEMOGLOBIN 12.2 g/dL (14.0-18.0); LYMPH # 0.6 (1.2-3.4); LYMPH % 7.5 % (22.0-35.0); MEAN CELL VOLUME 95.8 fl (80.0-105.0); MEAN CORPUSCULAR HEMOGLOBIN 30.3 pg (25.0-35.0); MEAN CORPUSCULAR HGB CONC 31.6 g/dl (31.0-37.0); MEAN PLATELET VOLUME 9.8 fl (7.0-11.0); MONO # 0.5 (0.1-0.6); MONO % 6.4 % (1.0-6.0); RBC 4.03 10^6/uL (3.5-6.1); RED CELL DISTRIBUTION WIDTH 17.6 % (11.5-14.5); WHITE BLOOD COUNT 7.8 10^3/ul (4.5-11.0)
[2018-01-29 07:09] LABS: AST/SGOT 25 U/L (17-59); GFR AFRICAN-AMERICAN > 60; GFR NON-AFRICAN AMERICAN > 60
[2018-01-29 07:26] LABS: ALT/SGPT 28 U/L (7-56); BLOOD UREA NITROGEN 25 mg/dL (7-21); CALCIUM 8.1 mg/dL (8.4-10.5)
[2018-01-29] MEDS ORDERED: Potassium Chloride 20 mEq ER Tab PO SCH (08:00)
--- NOTE | 2018-01-29 08:13 | CARD ---
APPROVED REPORT EKG Measurement Heart [id number] <Conclusion> Electronic ventricular pacemaker
[2018-01-29] MEDS ORDERED: VALSARTAN HYDROCHLOROTHIAZIDE PO SCH (10:00)
--- NOTE | 2018-01-29 10:09 | PN ---
DATE: 01/28/2018 SUBJECTIVE: The patient is in bed in no acute distress. OBJECTIVE: VITAL SIGNS: On exam, temperature is 98, blood pressure is 114/70, respiratory rate of 18. HEENT: Examination is unremarkable. NECK: Supple. LUNGS: Have decreased breath sounds. HEART: Normal S1, S2. ABDOMEN: Soft, nontender. DATA: Laboratory examination reveals the patient has a white count of 7.5, hemoglobin of 12. Chemistries are noted. Urinalysis is noted and Toxicology is reviewed. Microbiology is pending. ASSESSMENT AND PLAN: This is a 67-year-old male who was seen earlier into room 267 bed 2. The patient's is at the bedside. Bilateral lower extremity cellulitis, right greater than left with left leg with an ulcer with acute systolic congestive heart failure on top of chronic congestive heart failure. THE PATIENT IS ALLERGIC TO PENICILLIN. The legs are much improved this morning, day #2 of Zyvox and Azactam. The patient had a history of MRSA and Pseudomonas right leg infection on last admission. We will follow closely with you. The legs have greatly improved. We will check on the cultures and make adjustment as per information. Jesús Bernabe MD
[2018-01-29] MEDS: Potassium Chloride 20 mEq ER Tab PO SCH ×3 (10:15→17:47)
[2018-01-29] MEDS: Multivitamin With Minerals Tab PO SCH (10:15)
[2018-01-29] MEDS: Cholecalciferol 1,000 INTLU TAB PO SCH (10:15)
[2018-01-29] MEDS: Linezolid 600 mg in D5W 300 ml 600 MG/300 ML BAG IVPB SCH ×2 (10:30→23:13)
--- NOTE | 2018-01-29 11:31 | CP.PCM.PN ---
<AlfredScott - Last Filed: 01/29/18 13:29> Subjective - Date & Time of Evaluation Date of Evaluation: 01/29/18 Time of Evaluation: 07:30 - Subjective Subjective: Medicine Note for Dr. Matthews Patient seen and examined at bedside. No acute event overnight. Patient states his breathing has improved today. He is still complaining of swelling and redness in lower extremities. He also complains of lower back and hip pain. He is tolerating diet and having normal BMs. Patient has no other complaints at this time. Objective - Vital Signs/Intake and Output Vital Signs (last 24 hours): Temp Pulse Resp BP Pulse Ox 97.5 F L 70 18 114/78 95 01/29/18 00:00 01/29/18 05:57 01/29/18 00:00 01/29/18 00:00 01/28/18 18:10 Intake and Output: 01/29/18 01/29/18 06:59 18:59 Intake Total 360 Output Total 200 Balance 160 - Medications Medications: Current Medications Albuterol/Ipratropium (Duoneb 3 Mg/0.5 Mg (3 Ml) Ud) 3 ml IH Q6H PRN PRN Reason: Shortness of Breath Amiodarone HCl (Cordarone) 200 mg PO DAILY [facility] Apixaban (Eliquis) 5 mg PO BID [facility] PRN Reason: Protocol Last Admin: 01/28/18 22:05 Dose: 5 mg Carvedilol (Coreg) 25 mg PO BID [facility] Last Admin: 01/28/18 22:03 Dose: Not Given Cholecalciferol (Vitamin D) 1,000 intlu PO DAILY [facility] Folic Acid (Folic Acid) 1 mg PO DAILY [facility] Furosemide (Lasix) 40 mg IVP BID [facility] Aztreonam (Azactam 1 Gm) 100 mls @ 100 mls/hr IVPB Q8 [facility] PRN Reason: Protocol Stop: 02/06/18 22:01 Last Admin: 01/29/18 05:11 Dose: 100 mls/hr Linezolid (Zyvox 600mg/300ml D5w) 600 mg in 300 mls @ 200 mls/hr IVPB Q12 [facility] PRN Reason: Protocol Stop: 02/06/18 22:01 Last Admin: 01/28/18 23:13 Dose: 200 mls/hr Losartan Potassium (Cozaar) 100 mg PO DAILY [facility] Multivitamins/Minerals (Therapeutic-M Tab) 1 tab PO 0800 [facility] Potassium Chloride (K-Dur 20 Meq Er Tab) 20 meq PO TID [facility] Thiamine HCl (Vitamin B1 Tab) 100 mg PO DAILY [facility] - Labs Labs: 01/29/18 06:30 01/29/18 06:30 PT 23.6 SECONDS (9.4-12.5) H 01/28/18 15:50 INR 2.04 (0.93-1.08) H 01/28/18 15:50 APTT 36.7 Seconds (25.1-36.5) H 01/28/18 15:50 - Additional Findings Additional findings: - Constitutional Appears: Non-toxic, Older Than Stated Age - Head Exam Head Exam: ATRAUMATIC, NORMOCEPHALIC - Eye Exam Eye Exam: EOMI, Normal appearance - ENT Exam ENT Exam: Mucous Membranes Moist, Normal Oropharynx Additional comments: nose telangiectasia - Neck Exam Neck exam: Negative for: Lymphadenopathy, Tenderness - Respiratory Exam Respiratory Exam: Decreased Breath Sounds (bases b/l), NORMAL BREATHING PATTERN. absent: Accessory Muscle Use, Rales, Rhonchi, Wheezes, Respiratory Distress - Cardiovascular Exam Cardiovascular Exam: REGULAR RHYTHM, +S1, +S2 - GI/Abdominal Exam GI & Abdominal Exam: Normal Bowel Sounds, Soft. absent: Distended, Firm, Guarding, Hernia, Rigid, Tenderness - Extremities Exam Extremities exam: Positive for: 3+ pedal edema, pedal pulses present. Negative for: calf tenderness Additional comments: Edema, erythema Chronic skin changes on LEs lweeping serious fluid healing lesion with clean base and granular tissue 2 cm x 2 cm - Neurological Exam Neurological exam: Alert, CN II-XII Intact, Oriented x3 - Psychiatric Exam Psychiatric exam: Normal Affect, Normal Mood - Skin Skin Exam: Dry, Warm Assessment and Plan - Assessment and Plan (Free Text) Plan: Patient is a 67 year old male with a past medical history of hypertension, COPD , CHF (s/p pacemaker), afib (on Eliquis) presents with acute CHF exacerbation and bilateral lower extremity cellulitis Acute on Chronic CHF exacerbation - systolic dysfunction Cardiology consulted, Dr. Meyer - help appreciated CXR 01/28 - The right mid lung zone low-density opacity projecting over right mid level rib fractures is less conspicuous here interval improved aeration suggested. Interval right pleural effusion suggested some concomitant right mild passive compressive atelectasis and/or minimal infiltrate here possible. Cardiomegaly especially right heart enlargement inferred. AICD device in place. Interval small left pleural effusion and/or interval left inferolateral mild pleural parenchymal thickening/pathology. Recent ECHO 12/09 - LVEF ~20%, severe global hypokinesis, AV mod. calcified, severe pulm hypertension, mild MR, severe TR f/u Blood Culture f/u Urine Culture Coreg 25mg PO BID Lasix 40mg IVP BID Amiodarone 200mg PO daily Strict I's & O's Right LE Cellulitis ID consulted, Dr. Bernabe - help appreciated Podiatry consulted, Dr. Fernandez - help appreciated US of LE b/l - No sonographic evidence for deep venous thrombosis in the visualized segments of both lower extremities Linezolid 600mg IVPB q12h (started on 01/28) Aztreonam 1gm IVPB q8h (started on 01/28) Hx of Alcohol Abuse CIWA protocol Ativan 2mg IVP q4h prn Thiamine 100mg PO daily Folic Acid 1mg PO daily COPD Duoneb 3mL q6h prn Hypertension Continue home medications: Losartan 100mg PO daily Coreg 25mg PO BID Hx of afib Continue home medications: Eliquis 5mg PO BID Amiodarone 200mg PO daily Chronic Pain Percocet 5/325mg 1 tab PO TID prn Prophylactic Measures DVT - Eliquis 5mg PO daily GI - Protonix 40mg PO daily Case discussed with Dr. Byron Simon PGY1 <Kev Matthews - Last Filed: 01/29/18 15:19> Objective - Vital Signs/Intake and Output Vital Signs (last 24 hours): Temp Pulse Resp BP Pulse Ox 97.2 F L 67 18 92/63 L 95 01/29/18 11:35 01/29/18 11:35 01/29/18 11:35 01/29/18 11:35 01/28/18 18:10 Intake and Output: 01/29/18 01/29/18 06:59 18:59 Intake Total 360 Output Total 200 Balance 160 - Medications Medications: Current Medications Albuterol/Ipratropium (Duoneb 3 Mg/0.5 Mg (3 Ml) Ud) 3 ml IH Q6H PRN PRN Reason: Shortness of Breath Amiodarone HCl (Cordarone) 200 mg PO DAILY [facility] Last Admin: 01/29/18 10:15 Dose: 200 mg Apixaban (Eliquis) 5 mg PO BID KELLY PRN Reason: Protocol Last Admin: 01/29/18 10:15 Dose: 5 mg Carvedilol (Coreg) 25 mg PO BID [facility] Last Admin: 01/29/18 10:15 Dose: 25 mg Cholecalciferol (Vitamin D) 1,000 intlu PO DAILY [facility] Last Admin: 01/29/18 10:15 Dose: 1,000 intlu Folic Acid (Folic Acid) 1 mg PO DAILY [facility] Last Admin: 01/29/18 10:15 Dose: 1 mg Furosemide (Lasix) 40 mg IVP BID [facility] Last Admin: 01/29/18 10:15 Dose: 40 mg Aztreonam (Azactam 1 Gm) 100 mls @ 100 mls/hr IVPB Q8 [facility] PRN Reason: Protocol Stop: 02/06/18 22:01 Last Admin: 01/29/18 14:43 Dose: 100 mls/hr Linezolid (Zyvox 600mg/300ml D5w) 600 mg in 300 mls @ 200 mls/hr IVPB Q12 [facility] PRN Reason: Protocol Stop: 02/06/18 22:01 Last Admin: 01/29/18 10:30 Dose: 200 mls/hr Losartan Potassium (Cozaar) 100 mg PO DAILY [facility] Last Admin: 01/29/18 10:15 Dose: 100 mg Multivitamins/Minerals (Therapeutic-M Tab) 1 tab PO 0800 [facility] Last Admin: 01/29/18 10:15 Dose: 1 tab Oxycodone/Acetaminophen (Percocet 5/325 Mg Tab) 1 tab PO Q6H PRN PRN Reason: Pain, moderate (4-7) Stop: 02/01/18 11:32 Last Admin: 01/29/18 12:00 Dose: 1 tab Potassium Chloride (K-Dur 20 Meq Er Tab) 20 meq PO TID [facility] Last Admin: 01/29/18 14:43 Dose: 20 meq Thiamine HCl (Vitamin B1 Tab) 100 mg PO DAILY [facility] Last Admin: 01/29/18 11:34 Dose: 100 mg - Labs Labs: 01/29/18 06:30 01/29/18 06:30 PT 23.6 SECONDS (9.4-12.5) H 01/28/18 15:50 INR 2.04 (0.93-1.08) H 01/28/18 15:50 APTT 36.7 Seconds (25.1-36.5) H 01/28/18 15:50 Attending/Attestation - Attestation I have personally seen and examined this patient.: Yes I have fully participated in the care of the patient.: Yes I have reviewed all pertinent clinical information, including history, physical exam and plan: Yes Notes (Text): Patient seen and examined, Agree with above No acute distress, dyspnea improving Acute on Chronic Systolic HF with reduced EF of 20% s/p ICD. Continue with iv diuresis with Lasix Strict I/O's, daily weights, fluid restriction. Cardio consultation appreciated Lower extremity cellulitis improving with Zyvox and Aztreonam. Blood cultures x2 with no growth thus far - ID following Continue with OAC with Eliquis for afib. 01/29/18 15:19
[2018-01-29] MEDS: Oxycodone/Acetaminophen 5/325 mg Tab PO PRN ×2 (12:00→20:19)
--- NOTE | 2018-01-29 12:43 | CON ---
DATE: 01/29/2018 REQUESTING PHYSICIAN: Clif Lala MD. REASON FOR CONSULTATION: Dyspnea, leg edema. HISTORY: This is a 67-year-old man, well known to us with a long history of congestive heart failure, secondary congestive cardiomyopathy, chronic atrial fibrillation and chronic alcohol abuse, who presented with worsening leg edema and a weeping wound on his left leg. He has had multiple admissions in the past both at [facility] as well as [facility] for this. He is admitted for management. He does have progressive exertional dyspnea as well. He seen sitting in bed on telemetry in the presence of his . He does admit to continued alcohol abuse as well as indiscretion with the sodium intake. He has been [facility] and Dr. Fernandez for his intermittent leg ulcers. PAST MEDICAL HISTORY: His past history is known for the problems mentioned above. He does have chronic atrial fibrillation, prior prostate cancer treated with seed implant as well as a history of hypertension, total knee replacement and prior ICD implant. CURRENT MEDICATIONS: Include Azactam, amiodarone 200 mg daily, carvedilol 25 mg b.i.d., Cozaar 100 mg daily, DuoNeb inhaler, Eliquis 5 mg b.i.d., folic acid, potassium 20 mEq daily, Lasix 40 mg IV b.i.d. and Zyvox. ALLERGIES: PENICILLIN. SOCIAL HISTORY: He lives at home with his family. He is retired. He does not smoke. He does drink frequently. FAMILY HISTORY: Both parents are from age-related illness. REVIEW OF SYSTEMS: Ten-point review of systems is notable for mainly the problems mentioned above. PHYSICAL EXAMINATION: GENERAL: He is a chronically ill-appearing middle-aged man. VITAL SIGNS: His blood pressure is 114/78 with a pulse of 70 with ventricular pacing, respirations of 16. He is currently afebrile. HEENT: Normocephalic, atraumatic. NECK: No JVD noted. CHEST: Bibasilar rales heard. HEART: PMI displaced laterally with soft tones noted. Systolic murmurs present in lower left sternal border as well at the apex. ABDOMEN: Soft, nontender, normoactive bowel sounds. EXTREMITIES: Chronic cellulitic changes are noted with weeping ulcer present on the anterior aspect of his left leg. 2-3+ edema is noted to his thighs. PSYCHIATRIC: Normal mood and affect. NEUROLOGIC: No gross motor or sensory deficits noted. DIAGNOSTIC DATA: White count is 7.8, hemoglobin and hematocrit 12.2 and 38.6 with platelet count of 153,000. INR is 2.04. Venous blood gas: 7.36, pCO2 of 71, pO2 of 35. Potassium 3.5, BUN and creatinine of 25 and 1.1, bicarbonate is 40. BNP 7840. Electrocardiogram reveals a ventricular paced rhythm. Chest x-ray reveals a large cardiac silhouette with evidence of right rib fractures and small bilateral effusions. IMPRESSION: 1. Decompensated congestive heart failure, [id number], predominantly systolic. 2. Severe congestive cardiomyopathy. 3. Poor compliance with medical recommendations including sodium restriction and alcohol abstinence. 4. Rest of problems as noted. RECOMMENDATIONS: IV diuretic therapy will be continued for now. Potassium supplement will be increased in attempts to correct his metabolic alkalosis. The need for sodium restriction and alcohol abstinence was discussed at length again with him. Local wound care will continue. Leg elevation while seated is advised. We will continue to follow and make further recommendations as appropriate. Williams Moser MD
--- NOTE | 2018-01-29 19:29 | CP.PCM.CON ---
<Efra Berman - Last Filed: 02/01/18 08:46> History of Present Illness - History of Present Illness History of Present Illness: Podiatry Consult Note- Dr. Fernandez 67 y.o male seen and evaluated for bilaterally LE swelling with left leg ulceration. Patient is known to Dr. Fernandez. Patient is seen resting comfortably in bed, in NAD, and AA0x3. Patient is seen with visitor during visitation. Past Patient History - Infectious Disease Hx of Infectious Diseases: MRSA - Past Social History Smoking Status: Never Smoked - CARDIAC Hx Cardiac Disorders: Yes Hx Congestive Heart Failure: Yes Hx Hypertension: Yes - PULMONARY Hx Chronic Obstructive Pulmonary Disease (COPD): Yes - NEUROLOGICAL Hx Neurological Disorder: No - HEENT Hx HEENT Problems: No - RENAL Hx Chronic Kidney Disease: No - ENDOCRINE/METABOLIC Hx Endocrine Disorders: No - HEMATOLOGICAL/ONCOLOGICAL Hx Blood Disorders: No - INTEGUMENTARY Hx Dermatological Problems: Yes Other/Comment: 01-28-18 BILATERAL LE EDEMA PITING +4 EXTENDING TO TESTICLES AND LOWER TO MID BACK,FLUSHED SKIN.MELISSA COLORED SKIN.'. RIGHT LEG MORE SWOLLEN THAN LEFT WITH AN OPENED WOUND JUST BELOW KNEE BIG A QUARTER WITH SMOOTH EDGES.'LEFT LEG WITH DRY THICKENED FLUSHED TO RED COLORED SKIN. - MUSCULOSKELETAL/RHEUMATOLOGICAL Hx Musculoskeletal Disorders: Yes Hx Degenerative Joint Disease: Yes Hx Falls: Yes (fell 11/29/17) Hx Unsteady Gait: Yes - GASTROINTESTINAL Hx Gastrointestinal Disorders: No - GENITOURINARY/GYNECOLOGICAL Hx Prostate Problems: Yes (Seeds in prostate) - PSYCHIATRIC Hx Psychophysiologic Disorder: No Hx Substance Use: No - SURGICAL HISTORY Hx Joint Replacement: Yes (right knee left hip) - ANESTHESIA Hx Anesthesia Reactions: No Meds Home Medications: Home Medication List Medication Instructions Recorded Confirmed Type Sulfamethoxazole/Trimethoprim 1 tab PO BID #14 tab 01/31/18 Rx [Bactrim DS 800 mg-160 mg] Amiodarone [Cordarone] 200 mg PO DAILY tab 02/01/18 Rx Furosemide [Lasix] 60 mg PO BID 30 Days tablet 02/01/18 Rx Linezolid [Zyvox] 600 mg PO BID 14 Days tab 02/01/18 Rx Losartan [Cozaar] 100 mg PO DAILY tab 02/01/18 Rx Multimineral/Multivitamin 1 tab PO 0800 tab 02/01/18 Rx [Therapeutic-M Tab] Spironolactone [Aldactone] 25 mg PO DAILY #30 tablet 02/01/18 Rx Allergies/Adverse Reactions: Allergies Allergy/AdvReac Type Severity Reaction Status Date / Time Penicillins Allergy Mild ANAPHYLAXIS Verified 01/28/18 19:26 - Medications Medications: Current Medications Albuterol/Ipratropium (Duoneb 3 Mg/0.5 Mg (3 Ml) Ud) 3 ml IH Q6H PRN PRN Reason: Shortness of Breath Amiodarone HCl (Cordarone) 200 mg PO DAILY [facility] Last Admin: 01/29/18 10:15 Dose: 200 mg Apixaban (Eliquis) 5 mg PO BID [facility]LLY PRN Reason: Protocol Last Admin: 01/29/18 17:47 Dose: 5 mg Carvedilol (Coreg) 25 mg PO BID [facility] Last Admin: 01/29/18 17:47 Dose: Not Given Cholecalciferol (Vitamin D) 1,000 intlu PO DAILY [facility] Last Admin: 01/29/18 10:15 Dose: 1,000 intlu Folic Acid (Folic Acid) 1 mg PO DAILY [facility] Last Admin: 01/29/18 10:15 Dose: 1 mg Furosemide (Lasix) 40 mg IVP BID [facility] Last Admin: 01/29/18 17:48 Dose: Not Given Aztreonam (Azactam 1 Gm) 100 mls @ 100 mls/hr IVPB Q8 [facility]LLY PRN Reason: Protocol Stop: 02/06/18 22:01 Last Admin: 01/29/18 14:43 Dose: 100 mls/hr Linezolid (Zyvox 600mg/300ml D5w) 600 mg in 300 mls @ 200 mls/hr IVPB Q12 [facility]LLY PRN Reason: Protocol Stop: 02/06/18 22:01 Last Admin: 01/29/18 10:30 Dose: 200 mls/hr Losartan Potassium (Cozaar) 100 mg PO DAILY [facility] Last Admin: 01/29/18 10:15 Dose: 100 mg Multivitamins/Minerals (Therapeutic-M Tab) 1 tab PO 0800 [facility] Last Admin: 01/29/18 10:15 Dose: 1 tab Oxycodone/Acetaminophen (Percocet 5/325 Mg Tab) 1 tab PO Q6H PRN PRN Reason: Pain, moderate (4-7) Stop: 02/01/18 11:32 Last Admin: 01/29/18 12:00 Dose: 1 tab Potassium Chloride (K-Dur 20 Meq Er Tab) 20 meq PO TID [facility] Last Admin: 01/29/18 17:47 Dose: 20 meq Thiamine HCl (Vitamin B1 Tab) 100 mg PO DAILY [facility] Last Admin: 01/29/18 11:34 Dose: 100 mg Physical Exam - Constitutional Appears: Well, Non-toxic, No Acute Distress - Extremities Exam Extremities exam: Negative for: calf tenderness Additional comments: Bilateral LE exam VASC: DP/PT pulses are palpable 1/4, Cap refill time: < 3 sec to all digits, Temp gradient: cool to cool b/l with no increase in warmth to lower right leg, 3 + pitting edema noted on the distal leg bilaterally DERM: Wound approx. 4 x 3 x 0.2cm noted on the proximomedial aspect of the left leg, wound base is mixed fibrogranular with periwound erythema and hyperpigmentation noted, very mild purulent drainage, no active bleeding, no increase in warmth, Brawny discoloration noted to bilateral legs. NEURO: Protective sensation mildly diminished ORTHO: No pain on palpation bilateral LE. Results - Vital Signs Recent Vital Signs: Last Vital Signs Temp 97.7 F 01/29/18 18:00 Pulse 75 01/29/18 18:00 Resp 18 01/29/18 18:00 BP 90/65 L 01/29/18 18:00 Pulse Ox 95 01/28/18 18:10 - Labs Result Diagrams: 01/30/18 06:20 02/01/18 06:00 Labs: Laboratory Results - last 24 hr 01/28/18 01/29/18 01/29/18 21:10 06:30 06:30 WBC 7.8 D RBC 4.03 Hgb 12.2 L Hct 38.6 L MCV 95.8 MCH 30.3 MCHC 31.6 RDW 17.6 H Plt Count 153 MPV 9.8 Gran % 85.2 H Lymph % (Auto) 7.5 L [place] % (Auto) 6.4 H Eos % (Auto) 0.9 L Baso % (Auto) 0.0 Gran # 6.63 H Lymph # (Auto) 0.6 L [place] # (Auto) 0.5 Eos # (Auto) 0.1 Baso # (Auto) 0.00 Sodium 135 Potassium 3.5 L Chloride 88 L Carbon Dioxide 40 H Anion Gap 11 BUN 25 H Creatinine 1.1 Est GFR ( Amer) > 60 Est GFR (Non-Af Amer) > 60 Random Glucose 100 Calcium 8.1 L Total Bilirubin 1.4 H AST 25 ALT 28 Alkaline Phosphatase 135 H Total Protein 5.9 Albumin 3.0 Globulin 2.9 Albumin/Globulin Ratio 1.0 L Urine Color Yellow Urine Appearance Clear Urine pH 6.0 Ur Specific [place] 1.010 Urine Protein Negative Urine Glucose (UA) Negative Urine Ketones Negative Urine Blood Negative Urine Nitrate Negative Urine Bilirubin Negative Urine Urobilinogen 2.0 H Ur Leukocyte Esterase Negative Assessment & Plan - Assessment and Plan (Free Text) Assessment: 67 year old male with Stage 3 non-pressure ulcer L leg with weeping b/l extremity Plan: Patient examined and evaluated with attending Dr. Fernandez Cleanse ulceration with saline solution, dressed with maxosorb, dsd, and kerlix LE cleansed with saline solution. Right LE to air out Ordered bactroban for left leg ulceration Ordered Eucerin for bilateral LE Wound culture taken of left leg ulcer Wound culture ordered C/w abx per ID Thank you for allowing us to take part in patient's care Will continue to follow while in house <Jannie Fernandez - Last Filed: 02/02/18 16:29> Results - Vital Signs Recent Vital Signs: Last Vital Signs Temp 97.0 F L 02/01/18 06:00 Pulse 81 02/01/18 11:13 Resp 20 02/01/18 06:00 BP 92/86 L 02/01/18 12:28 Pulse Ox 96 02/01/18 06:00 - Labs Result Diagrams: 01/30/18 06:20 02/01/18 06:00 Attending/Attestation - Attestation I have personally seen and examined this patient.: Yes I have fully participated in the care of the patient.: Yes I have reviewed all pertinent clinical information: Yes
[2018-01-30 02:06] LABS: BARBITURATES, UR NEGATIVE (NEGATIVE); BENZODIAZEPINES, UR NEGATIVE (NEGATIVE); OPIATES, UR NEGATIVE (NEGATIVE); PHENCYCLIDINE, UR NEGATIVE (NEGATIVE)
[2018-01-30] MEDS: Oxycodone/Acetaminophen 5/325 mg Tab PO PRN ×3 (02:12→21:38)
[2018-01-30] MEDS: Aztreonam 1 Gm in NS 100mL 100 ML IVPB SCH ×3 (05:00→21:39)
[2018-01-30] MEDS: Albuterol-Ipratrop 3 mg / 0.5 (3 ml) UD IH PRN (05:25)
[2018-01-30] MEDS ORDERED: Pantoprazole 40 mg EC Tab PO SCH (06:00)
[2018-01-30 06:50] LABS: BASO # 0.01 K/mm3 (0.0-2.0); BASO % 0.1 % (0.0-3.0); EOS # 0.2 (0.0-0.7); GRAN # 6.28 (1.4-6.5); GRAN % 82.2 % (50.0-68.0); HEMOGLOBIN 13.9 g/dL (14.0-18.0); LYMPH # 0.6 (1.2-3.4); LYMPH % 7.7 % (22.0-35.0); MEAN CELL VOLUME 97.1 fl (80.0-105.0); MEAN CORPUSCULAR HEMOGLOBIN 30.8 pg (25.0-35.0); MEAN CORPUSCULAR HGB CONC 31.7 g/dl (31.0-37.0); MONO # 0.6 (0.1-0.6); RBC 4.52 10^6/uL (3.5-6.1); RED CELL DISTRIBUTION WIDTH 17.5 % (11.5-14.5); WHITE BLOOD COUNT 7.6 10^3/ul (4.5-11.0)
[2018-01-30 07:35] LABS: ALB/GLOB RATIO 1.2 (1.1-1.8); ALBUMIN 3.5 g/dL (3.0-4.8); ALT/SGPT 31 U/L (7-56); AST/SGOT 25 U/L (17-59); BLOOD UREA NITROGEN 25 mg/dL (7-21); CALCIUM 8.3 mg/dL (8.4-10.5); GFR AFRICAN-AMERICAN > 60; GFR NON-AFRICAN AMERICAN > 60
--- NOTE | 2018-01-30 08:35 | CP.PCM.PN ---
Subjective - Date & Time of Evaluation Date of Evaluation: 01/30/18 Time of Evaluation: 07:00 - Subjective Subjective: Stable on 2R. He feels OK. No CP or SOB at bedrest. V/S noted. V. Paced PE: Lungs: few rhonchi Cor.: S1S2 Abd.: soft Ext. chronic edema and erythema. Weeping from LLE at ankle Neuro.: alert I/O= 1600/1400 recorded Labs noted: na+= 133, K+= 4.5, BUN= 25, Cr.= 1/1, Co2 = 33 BC X 2 NG at 24 hrs. Wound C+S pending Objective - Vital Signs/Intake and Output Vital Signs (last 24 hours): Temp Pulse Resp BP Pulse Ox 97.2 F L 80 21 115/79 95 01/30/18 06:00 01/30/18 06:00 01/30/18 06:00 01/30/18 06:00 01/30/18 06:00 Intake and Output: 01/30/18 01/30/18 06:59 18:59 Intake Total 500 Output Total 800 Balance 500 -800 - Medications Medications: Current Medications Albuterol/Ipratropium (Duoneb 3 Mg/0.5 Mg (3 Ml) Ud) 3 ml IH Q6H PRN PRN Reason: Shortness of Breath Last Admin: 01/30/18 05:25 Dose: 3 ml Amiodarone HCl (Cordarone) 200 mg PO DAILY [facility] Last Admin: 01/29/18 10:15 Dose: 200 mg Apixaban (Eliquis) 5 mg PO BID [facility] PRN Reason: Protocol Last Admin: 01/29/18 17:47 Dose: 5 mg Carvedilol (Coreg) 25 mg PO BID [facility] Last Admin: 01/29/18 17:47 Dose: Not Given Cholecalciferol (Vitamin D) 1,000 intlu PO DAILY [facility] Last Admin: 01/29/18 10:15 Dose: 1,000 intlu Folic Acid (Folic Acid) 1 mg PO DAILY [facility] Last Admin: 01/29/18 10:15 Dose: 1 mg Furosemide (Lasix) 40 mg IVP BID [facility] Last Admin: 01/29/18 17:48 Dose: Not Given Aztreonam (Azactam 1 Gm) 100 mls @ 100 mls/hr IVPB Q8 [facility] PRN Reason: Protocol Stop: 02/06/18 22:01 Last Admin: 01/30/18 05:00 Dose: 100 mls/hr Linezolid (Zyvox 600mg/300ml D5w) 600 mg in 300 mls @ 200 mls/hr IVPB Q12 [facility] PRN Reason: Protocol Stop: 02/06/18 22:01 Last Admin: 01/29/18 23:13 Dose: 200 mls/hr Losartan Potassium (Cozaar) 100 mg PO DAILY [facility] Last Admin: 01/29/18 10:15 Dose: 100 mg Multi-Ingredient Cream (Hydrocerin Cream) 1 ea TOP DAILY [facility] Multivitamins/Minerals (Therapeutic-M Tab) 1 tab PO 0800 [facility] Last Admin: 01/29/18 10:15 Dose: 1 tab Mupirocin (Bactroban Ointment) 1 gm TOP DAILY [facility] Oxycodone/Acetaminophen (Percocet 5/325 Mg Tab) 1 tab PO Q6H PRN PRN Reason: Pain, moderate (4-7) Stop: 02/01/18 11:32 Last Admin: 01/30/18 02:12 Dose: 1 tab Potassium Chloride (K-Dur 20 Meq Er Tab) 20 meq PO TID [facility] Last Admin: 01/29/18 17:47 Dose: 20 meq Thiamine HCl (Vitamin B1 Tab) 100 mg PO DAILY [facility] Last Admin: 01/29/18 11:34 Dose: 100 mg - Labs Labs: 01/30/18 06:20 01/30/18 06:20 PT 23.6 SECONDS (9.4-12.5) H 01/28/18 15:50 INR 2.04 (0.93-1.08) H 01/28/18 15:50 APTT 36.7 Seconds (25.1-36.5) H 01/28/18 15:50 Assessment and Plan - Assessment and Plan (Free Text) Assessment: Cellulitis LLEs, Non-healing wound LLE SHERIDAN CCM- ETOH related Continue beer drinking and dietary non-compliance CHF Chronic AF/V. Paced on Eliquis ICD HBP Prostate cancer with seed implants Right TKR Cataracts Plan: Continue diuresis AB Wound cultures pending As per Podiatry and ID and Medical Team OOB as naty/Elevate legs [place] labs, I/O, sats., cultures. Will follow D/C all ETOH d/w him again.
[2018-01-30] MEDS: Potassium Chloride 20 mEq ER Tab PO SCH ×3 (10:33→19:04)
[2018-01-30] MEDS: Linezolid 600 mg in D5W 300 ml 600 MG/300 ML BAG IVPB SCH ×2 (10:33→21:38)
[2018-01-30] MEDS: Cholecalciferol 1,000 INTLU TAB PO SCH (10:34)
[2018-01-30] MEDS: Mupirocin 2% Ointment 15 GM TUBE TOP SCH (10:35)
[2018-01-30] MEDS: Hydrocerin(120 gm) TOP SCH (10:36)
[2018-01-30] MEDS: Multivitamin With Minerals Tab PO SCH (10:39)
--- NOTE | 2018-01-30 11:38 | CP.PCM.PN ---
<AlfredScott - Last Filed: 01/30/18 11:55> Subjective - Date & Time of Evaluation Date of Evaluation: 01/30/18 Time of Evaluation: 07:00 - Subjective Subjective: Medicine Note for Dr. Thorne Patient seen and examined at bedside. No acute event overnight. Patient states breathing is much better. He is off nasal canula. He reports swelling and redness in lower extremities also improving. Back and hip pain controlled. He is tolerating diet and having normal BMs. Patient has no other complaints at this time. Objective - Vital Signs/Intake and Output Vital Signs (last 24 hours): Temp Pulse Resp BP Pulse Ox 97.2 F L 86 21 100/74 95 01/30/18 06:00 01/30/18 10:33 01/30/18 06:00 01/30/18 10:34 01/30/18 06:00 Intake and Output: 01/30/18 01/30/18 06:59 18:59 Intake Total 500 Output Total 800 Balance 500 -800 - Medications Medications: Current Medications Albuterol/Ipratropium (Duoneb 3 Mg/0.5 Mg (3 Ml) Ud) 3 ml IH Q6H PRN PRN Reason: Shortness of Breath Last Admin: 01/30/18 05:25 Dose: 3 ml Amiodarone HCl (Cordarone) 200 mg PO DAILY [facility] Last Admin: 01/30/18 10:33 Dose: 200 mg Apixaban (Eliquis) 5 mg PO BID [facility] PRN Reason: Protocol Last Admin: 01/30/18 10:39 Dose: 5 mg Carvedilol (Coreg) 25 mg PO BID [facility] Last Admin: 01/30/18 10:34 Dose: 25 mg Cholecalciferol (Vitamin D) 1,000 intlu PO DAILY [facility] Last Admin: 01/30/18 10:34 Dose: 1,000 intlu Folic Acid (Folic Acid) 1 mg PO DAILY [facility] Last Admin: 01/30/18 10:33 Dose: 1 mg Furosemide (Lasix) 40 mg IVP BID [facility] Last Admin: 01/30/18 10:34 Dose: 40 mg Aztreonam (Azactam 1 Gm) 100 mls @ 100 mls/hr IVPB Q8 [facility] PRN Reason: Protocol Stop: 02/06/18 22:01 Last Admin: 01/30/18 05:00 Dose: 100 mls/hr Linezolid (Zyvox 600mg/300ml D5w) 600 mg in 300 mls @ 200 mls/hr IVPB Q12 [facility] PRN Reason: Protocol Stop: 02/06/18 22:01 Last Admin: 01/30/18 10:33 Dose: 200 mls/hr Losartan Potassium (Cozaar) 100 mg PO DAILY [facility] Last Admin: 01/30/18 10:34 Dose: 100 mg Multi-Ingredient Cream (Hydrocerin Cream) 1 ea TOP DAILY [facility] Last Admin: 01/30/18 10:36 Dose: 1 applic Multivitamins/Minerals (Therapeutic-M Tab) 1 tab PO 0800 [facility] Last Admin: 01/30/18 10:39 Dose: 1 tab Mupirocin (Bactroban Ointment) 1 gm TOP DAILY [facility] Last Admin: 01/30/18 10:35 Dose: 1 applic Oxycodone/Acetaminophen (Percocet 5/325 Mg Tab) 1 tab PO Q6H PRN PRN Reason: Pain, moderate (4-7) Stop: 02/01/18 11:32 Last Admin: 01/30/18 02:12 Dose: 1 tab Potassium Chloride (K-Dur 20 Meq Er Tab) 20 meq PO TID [facility] Last Admin: 01/30/18 10:33 Dose: 20 meq Thiamine HCl (Vitamin B1 Tab) 100 mg PO DAILY [facility] Last Admin: 01/30/18 10:34 Dose: 100 mg - Labs Labs: 01/30/18 06:20 01/30/18 06:20 PT 23.6 SECONDS (9.4-12.5) H 01/28/18 15:50 INR 2.04 (0.93-1.08) H 01/28/18 15:50 APTT 36.7 Seconds (25.1-36.5) H 01/28/18 15:50 - Additional Findings Additional findings: - Constitutional Appears: Non-toxic, Older Than Stated Age - Head Exam Head Exam: ATRAUMATIC, NORMOCEPHALIC - Eye Exam Eye Exam: EOMI, Normal appearance - ENT Exam ENT Exam: Mucous Membranes Moist, Normal Oropharynx Additional comments: nose telangiectasia - Neck Exam Neck exam: Negative for: Lymphadenopathy, Tenderness - Respiratory Exam Respiratory Exam: Decreased Breath Sounds (bases b/l), NORMAL BREATHING PATTERN. absent: Accessory Muscle Use, Rales, Rhonchi, Wheezes, Respiratory Distress - Cardiovascular Exam Cardiovascular Exam: REGULAR RHYTHM, +S1, +S2 - GI/Abdominal Exam GI & Abdominal Exam: Normal Bowel Sounds, Soft. absent: Distended, Firm, Guarding, Hernia, Rigid, Tenderness - Extremities Exam Extremities exam: Positive for: 2+ pedal edema, pedal pulses present. Negative for: calf tenderness Additional comments: Edema, erythema Chronic skin changes on LEs weeping serious fluid healing lesion has dressing - clean,dry,intact - Neurological Exam Neurological exam: Alert, CN II-XII Intact, Oriented x3 - Psychiatric Exam Psychiatric exam: Normal Affect, Normal Mood - Skin Skin Exam: Dry, Warm Assessment and Plan - Assessment and Plan (Free Text) Assessment: 67 year old male with a past medical history of hypertension, COPD, CHF (s/p pacemaker), afib (on Eliquis) presents with acute CHF exacerbation and bilateral lower extremity cellulitis Plan: Acute on Chronic CHF exacerbation - systolic dysfunction Cardiology consulted, Dr. Meyer - help appreciated CXR 01/28 - The right mid lung zone low-density opacity projecting over right mid level rib fractures is less conspicuous here interval improved aeration suggested. Interval right pleural effusion suggested some concomitant right mild passive compressive atelectasis and/or minimal infiltrate here possible. Cardiomegaly especially right heart enlargement inferred. AICD device in place. Interval small left pleural effusion and/or interval left inferolateral mild pleural parenchymal thickening/pathology. Recent ECHO 12/09 - LVEF ~20%, severe global hypokinesis, AV mod. calcified, severe pulm hypertension, mild MR, severe TR f/u Blood Culture f/u Urine Culture Coreg 25mg PO BID Lasix 40mg IVP BID Amiodarone 200mg PO daily Strict I's & O's Right LE Cellulitis ID consulted, Dr. Bernabe - help appreciated Podiatry consulted, Dr. Fernandez - help appreciated US of LE b/l - No sonographic evidence for deep venous thrombosis in the visualized segments of both lower extremities Linezolid 600mg IVPB q12h (started on 01/28) Aztreonam 1gm IVPB q8h (started on 01/28) Hx of Alcohol Abuse CIWA protocol Ativan 2mg IVP q4h prn Thiamine 100mg PO daily Folic Acid 1mg PO daily COPD Duoneb 3mL q6h prn Hypertension Continue home medications: Losartan 100mg PO daily Coreg 25mg PO BID Hx of afib Continue home medications: Eliquis 5mg PO BID Amiodarone 200mg PO daily Chronic Pain Percocet 5/325mg 1 tab PO TID prn Prophylactic Measures DVT - Eliquis 5mg PO daily GI - Protonix 40mg PO daily Case discussed with Dr. Mati Simon PGY1 <Melissa Thorne - Last Filed: 01/30/18 14:31> Objective - Vital Signs/Intake and Output Vital Signs (last 24 hours): Temp Pulse Resp BP Pulse Ox 97.2 F L 86 21 100/74 95 01/30/18 06:00 01/30/18 10:33 01/30/18 06:00 01/30/18 10:34 01/30/18 06:00 Intake and Output: 01/30/18 01/30/18 06:59 18:59 Intake Total 500 720 Output Total 1400 Balance 500 -680 - Medications Medications: Current Medications Albuterol/Ipratropium (Duoneb 3 Mg/0.5 Mg (3 Ml) Ud) 3 ml IH Q6H PRN PRN Reason: Shortness of Breath Last Admin: 01/30/18 05:25 Dose: 3 ml Amiodarone HCl (Cordarone) 200 mg PO DAILY [facility] Last Admin: 01/30/18 10:33 Dose: 200 mg Apixaban (Eliquis) 5 mg PO BID [facility] PRN Reason: Protocol Last Admin: 01/30/18 10:39 Dose: 5 mg Carvedilol (Coreg) 25 mg PO BID [facility] Last Admin: 01/30/18 10:34 Dose: 25 mg Cholecalciferol (Vitamin D) 1,000 intlu PO DAILY [facility] Last Admin: 01/30/18 10:34 Dose: 1,000 intlu Folic Acid (Folic Acid) 1 mg PO DAILY [facility] Last Admin: 01/30/18 10:33 Dose: 1 mg Furosemide (Lasix) 40 mg IVP BID [facility] Last Admin: 01/30/18 10:34 Dose: 40 mg Aztreonam (Azactam 1 Gm) 100 mls @ 100 mls/hr IVPB Q8 [facility] PRN Reason: Protocol Stop: 02/06/18 22:01 Last Admin: 01/30/18 05:00 Dose: 100 mls/hr Linezolid (Zyvox 600mg/300ml D5w) 600 mg in 300 mls @ 200 mls/hr IVPB Q12 [facility] PRN Reason: Protocol Stop: 02/06/18 22:01 Last Admin: 01/30/18 10:33 Dose: 200 mls/hr Losartan Potassium (Cozaar) 100 mg PO DAILY [facility] Last Admin: 01/30/18 10:34 Dose: 100 mg Multi-Ingredient Cream (Hydrocerin Cream) 1 ea TOP DAILY [facility] Last Admin: 01/30/18 10:36 Dose: 1 applic Multivitamins/Minerals (Therapeutic-M Tab) 1 tab PO 0800 [facility] Last Admin: 01/30/18 10:39 Dose: 1 tab Mupirocin (Bactroban Ointment) 1 gm TOP DAILY [facility] Last Admin: 01/30/18 10:35 Dose: 1 applic Oxycodone/Acetaminophen (Percocet 5/325 Mg Tab) 1 tab PO Q6H PRN PRN Reason: Pain, moderate (4-7) Stop: 02/01/18 11:32 Last Admin: 01/30/18 02:12 Dose: 1 tab Potassium Chloride (K-Dur 20 Meq Er Tab) 20 meq PO TID [facility] Last Admin: 01/30/18 10:33 Dose: 20 meq Thiamine HCl (Vitamin B1 Tab) 100 mg PO DAILY [facility] Last Admin: 01/30/18 10:34 Dose: 100 mg - Labs Labs: 01/30/18 06:20 01/30/18 06:20 PT 23.6 SECONDS (9.4-12.5) H 01/28/18 15:50 INR 2.04 (0.93-1.08) H 01/28/18 15:50 APTT 36.7 Seconds (25.1-36.5) H 01/28/18 15:50 Attending/Attestation - Attestation I have personally seen and examined this patient.: Yes I have fully participated in the care of the patient.: Yes I have reviewed all pertinent clinical information, including history, physical exam and plan: Yes Notes (Text): I have seen and examined the patient at bedside. Agree with the above note with the following additions/ exceptions: Briefly this is 67 M w h/o copd, HTN, chronic afib on eliquis, R knee replacement, severe TR, severe PH, alcoholic CMP (EF20%), active drinker, AICD, prostate ca w seed implants came with anasarca, CHF exacerbation and LE cellulitis vs venous stasis. Continue diuresis. Monitor Is/Os. Continue cozaar, coreg, amio and eliquis. Also has LE cellulitis on azactam and zyvox. Last time wound cx grew pseudomonas and MRSA. This time wound culture is pending and blood culture is negative. ID, podiatry and cardio on board.
--- NOTE | 2018-01-30 13:27 | CP.PCM.PN ---
<Efra Berman - Last Filed: 01/30/18 13:24> Subjective - Date & Time of Evaluation Date of Evaluation: 01/30/18 Time of Evaluation: 11:00 - Subjective Subjective: Podiatry Progress Note- Dr. Fernandez 67 y.o male seen and evaluated for bilaterally LE swelling with drainage and left anterior leg ulceration. Patient is seen resting comfortably in bed, in NAD , and AA0x3. Patient denies acute overnight events. Denies nausea, fever,l chest pains. Shortness of breath improved. No new pedal complaints. Objective - Vital Signs/Intake and Output Vital Signs (last 24 hours): Temp Pulse Resp BP Pulse Ox 97.2 F L 86 21 100/74 95 01/30/18 06:00 01/30/18 10:33 01/30/18 06:00 01/30/18 10:34 01/30/18 06:00 Intake and Output: 01/30/18 01/30/18 06:59 18:59 Intake Total 500 Output Total 800 Balance 500 -800 - Medications Medications: Current Medications Albuterol/Ipratropium (Duoneb 3 Mg/0.5 Mg (3 Ml) Ud) 3 ml IH Q6H PRN PRN Reason: Shortness of Breath Last Admin: 01/30/18 05:25 Dose: 3 ml Amiodarone HCl (Cordarone) 200 mg PO DAILY [facility] Last Admin: 01/30/18 10:33 Dose: 200 mg Apixaban (Eliquis) 5 mg PO BID [facility] PRN Reason: Protocol Last Admin: 01/30/18 10:39 Dose: 5 mg Carvedilol (Coreg) 25 mg PO BID [facility] Last Admin: 01/30/18 10:34 Dose: 25 mg Cholecalciferol (Vitamin D) 1,000 intlu PO DAILY [facility] Last Admin: 01/30/18 10:34 Dose: 1,000 intlu Folic Acid (Folic Acid) 1 mg PO DAILY [facility] Last Admin: 01/30/18 10:33 Dose: 1 mg Furosemide (Lasix) 40 mg IVP BID [facility] Last Admin: 01/30/18 10:34 Dose: 40 mg Aztreonam (Azactam 1 Gm) 100 mls @ 100 mls/hr IVPB Q8 [facility] PRN Reason: Protocol Stop: 02/06/18 22:01 Last Admin: 01/30/18 05:00 Dose: 100 mls/hr Linezolid (Zyvox 600mg/300ml D5w) 600 mg in 300 mls @ 200 mls/hr IVPB Q12 [facility] PRN Reason: Protocol Stop: 02/06/18 22:01 Last Admin: 01/30/18 10:33 Dose: 200 mls/hr Losartan Potassium (Cozaar) 100 mg PO DAILY [facility] Last Admin: 01/30/18 10:34 Dose: 100 mg Multi-Ingredient Cream (Hydrocerin Cream) 1 ea TOP DAILY [facility] Last Admin: 01/30/18 10:36 Dose: 1 applic Multivitamins/Minerals (Therapeutic-M Tab) 1 tab PO 0800 [facility] Last Admin: 01/30/18 10:39 Dose: 1 tab Mupirocin (Bactroban Ointment) 1 gm TOP DAILY [facility] Last Admin: 01/30/18 10:35 Dose: 1 applic Oxycodone/Acetaminophen (Percocet 5/325 Mg Tab) 1 tab PO Q6H PRN PRN Reason: Pain, moderate (4-7) Stop: 02/01/18 11:32 Last Admin: 01/30/18 02:12 Dose: 1 tab Potassium Chloride (K-Dur 20 Meq Er Tab) 20 meq PO TID [facility] Last Admin: 01/30/18 10:33 Dose: 20 meq Thiamine HCl (Vitamin B1 Tab) 100 mg PO DAILY [facility] Last Admin: 01/30/18 10:34 Dose: 100 mg - Labs Labs: 01/30/18 06:20 01/30/18 06:20 PT 23.6 SECONDS (9.4-12.5) H 01/28/18 15:50 INR 2.04 (0.93-1.08) H 01/28/18 15:50 APTT 36.7 Seconds (25.1-36.5) H 01/28/18 15:50 - Constitutional Appears: Well, Non-toxic, No Acute Distress - Extremities Exam Extremities Exam: absent: Calf Tenderness Additional comments: Bilateral LE exam VASC: DP/PT pulses are palpable 1/4, Cap refill time: < 3 sec to all digits, Temp gradient: cool to cool b/l with no increase in warmth to lower right leg, 3 + pitting edema noted on the distal leg bilaterally DERM: Wound approx. 4 x 3 x 0.2cm noted on the proximomedial aspect of the left leg, wound base is mixed fibrogranular with periwound erythema and hyperpigmentation noted, no drainage, no active bleeding, no increase in warmth , Brawny discoloration noted to bilateral legs. Generalized weeping to LE bilaterally from LE swelling NEURO: Protective sensation mildly diminished ORTHO: No pain on palpation bilateral LE. - Neurological Exam Neurological Exam: Alert, Awake, Oriented x3 - Psychiatric Exam Psychiatric exam: Normal Affect, Normal Mood Assessment and Plan - Assessment and Plan (Free Text) Assessment: 67 year old male with Stage 3 non-pressure ulcer L leg and B/L weeping drainage Plan: Patient examined and evaluated with attending Dr. Fernandez Cleanse ulceration with saline solution, dressed with bactroban, dsd, and kerlix LE cleansed with saline solution. Right LE to air out Eucerin applied to bilateral LE Wound culture taken of left leg ulcer Wound culture ordered- pending C/w abx per ID Thank you for allowing us to take part in patient's care Will continue to follow while in house Ordered offloading boots for heels. TO be worn at all times while in bed. Thank you <Jannie Fernandez - Last Filed: 02/02/18 16:29> Objective - Vital Signs/Intake and Output Vital Signs (last 24 hours): Temp Pulse Resp BP Pulse Ox 97.0 F L 81 20 92/86 L 96 02/01/18 06:00 02/01/18 11:13 02/01/18 06:00 02/01/18 12:28 02/01/18 06:00 - Labs Labs: 01/30/18 06:20 02/01/18 06:00 PT 23.6 SECONDS (9.4-12.5) H 01/28/18 15:50 INR 2.04 (0.93-1.08) H 01/28/18 15:50 APTT 36.7 Seconds (25.1-36.5) H 01/28/18 15:50 Attending/Attestation - Attestation I have personally seen and examined this patient.: Yes I have fully participated in the care of the patient.: Yes I have reviewed all pertinent clinical information, including history, physical exam and plan: Yes
--- NOTE | 2018-01-30 17:48 | PN ---
DATE: 01/30/2018 SUBJECTIVE: The patient is in bed and seen earlier today. He is doing much better. No fevers and chills. OBJECTIVE: VITAL SIGNS: On exam, temperature is 97, blood pressure is 112/70, respiratory rate of 16. HEENT: Examination is unremarkable. NECK: Supple. LUNGS: Have decreased breath sounds. HEART: Normal S1, S2. ABDOMEN: Soft, nontender. DATA: Laboratory examination reveals the patient's white count of 7.6, hemoglobin of 13. BUN of 25, creatinine of 1.1, procalcitonin 0.07. Urinalysis is noted. Blood cultures are negative and the leg cultures are pending. Review of orders reveals the patient is on aztreonam and linezolid and Dr. Meyer's note is reviewed. Dr. Friedman's note is reviewed. ASSESSMENT AND PLAN: This is a 67-year-old male seen earlier today in room 267, bed 2 with bilateral lower extremity cellulitis, more so right than left and acute systolic congestive heart failure on top of chronic congestive heart failure. THE PATIENT IS ALLERGIC TO PENICILLIN. The legs have improved on Zyvox and the Azactam. The patient had a history of MRSA and Pseudomonas right leg infection and may be able to switch to p.o. if he continues to improve as he has in the next 24 to 48 hours. Jesús Bernabe MD
[2018-01-31] MEDS: Oxycodone/Acetaminophen 5/325 mg Tab PO PRN ×3 (05:04→20:01)
[2018-01-31] MEDS: Aztreonam 1 Gm in NS 100mL 100 ML IVPB SCH ×3 (05:05→22:37)
[2018-01-31 07:26] LABS: BLOOD UREA NITROGEN 25 mg/dL (7-21); CALCIUM 8.4 mg/dL (8.4-10.5); GFR AFRICAN-AMERICAN > 60; GFR NON-AFRICAN AMERICAN > 60
--- NOTE | 2018-01-31 07:33 | CP.PCM.PN ---
Subjective - Date & Time of Evaluation Date of Evaluation: 01/31/18 Time of Evaluation: 07:00 - Subjective Subjective: Stable on 2R. He feels OK. No CP or SOB at bedrest. V/S noted. V. Paced PE: Lungs: few rhonchi Cor.: S1S2 Abd.: soft Ext. chronic edema and erythema. Weeping from LLE at ankle Neuro.: alert I/O= 1340/1600recorded Labs noted: K+= 5.0 BUN= 25, Cr.= 1.1, Co2 = 38 BC X 2 NG at 48 hrs. Wound C+S: + GPC Objective - Vital Signs/Intake and Output Vital Signs (last 24 hours): Temp Pulse Resp BP Pulse Ox 98.2 F 72 19 112/68 100 01/31/18 06:00 01/31/18 06:00 01/31/18 06:00 01/31/18 06:00 01/31/18 06:00 Intake and Output: 01/31/18 01/31/18 06:59 18:59 Intake Total 620 Output Total 200 Balance 420 - Medications Medications: Current Medications Albuterol/Ipratropium (Duoneb 3 Mg/0.5 Mg (3 Ml) Ud) 3 ml IH Q6H PRN PRN Reason: Shortness of Breath Last Admin: 01/30/18 05:25 Dose: 3 ml Amiodarone HCl (Cordarone) 200 mg PO DAILY [facility] Last Admin: 01/30/18 10:33 Dose: 200 mg Apixaban (Eliquis) 5 mg PO BID [facility] PRN Reason: Protocol Last Admin: 01/30/18 19:04 Dose: 5 mg Carvedilol (Coreg) 25 mg PO BID [facility] Last Admin: 01/30/18 19:04 Dose: 25 mg Cholecalciferol (Vitamin D) 1,000 intlu PO DAILY [facility] Last Admin: 01/30/18 10:34 Dose: 1,000 intlu Folic Acid (Folic Acid) 1 mg PO DAILY [facility] Last Admin: 01/30/18 10:33 Dose: 1 mg Furosemide (Lasix) 40 mg IVP BID [facility] Last Admin: 01/30/18 19:04 Dose: 40 mg Aztreonam (Azactam 1 Gm) 100 mls @ 100 mls/hr IVPB Q8 [facility] PRN Reason: Protocol Stop: 02/06/18 22:01 Last Admin: 01/31/18 05:05 Dose: 100 mls/hr Linezolid (Zyvox 600mg/300ml D5w) 600 mg in 300 mls @ 200 mls/hr IVPB Q12 [facility] PRN Reason: Protocol Stop: 02/06/18 22:01 Last Admin: 01/30/18 21:38 Dose: 200 mls/hr Losartan Potassium (Cozaar) 100 mg PO DAILY [facility] Last Admin: 01/30/18 10:34 Dose: 100 mg Multi-Ingredient Cream (Hydrocerin Cream) 1 ea TOP DAILY [facility] Last Admin: 01/30/18 10:36 Dose: 1 applic Multivitamins/Minerals (Therapeutic-M Tab) 1 tab PO 0800 [facility] Last Admin: 01/30/18 10:39 Dose: 1 tab Mupirocin (Bactroban Ointment) 1 gm TOP DAILY [facility] Last Admin: 01/30/18 10:35 Dose: 1 applic Oxycodone/Acetaminophen (Percocet 5/325 Mg Tab) 1 tab PO Q6H PRN PRN Reason: Pain, moderate (4-7) Stop: 02/01/18 11:32 Last Admin: 01/31/18 05:04 Dose: 1 tab Potassium Chloride (K-Dur 20 Meq Er Tab) 20 meq PO TID [facility] Last Admin: 01/30/18 19:04 Dose: 20 meq Thiamine HCl (Vitamin B1 Tab) 100 mg PO DAILY [facility] Last Admin: 01/30/18 10:34 Dose: 100 mg - Labs Labs: 01/30/18 06:20 01/31/18 06:00 PT 23.6 SECONDS (9.4-12.5) H 01/28/18 15:50 INR 2.04 (0.93-1.08) H 01/28/18 15:50 APTT 36.7 Seconds (25.1-36.5) H 01/28/18 15:50 Assessment and Plan - Assessment and Plan (Free Text) Assessment: Cellulitis LLEs, Non-healing wound LLE SHERIDAN CCM- ETOH related Continued beer drinking and dietary non-compliance CHF Chronic AF/V. Paced on Eliquis ICD HBP Prostate cancer with seed implants Right TKR Cataracts Plan: Continue IV Lasix. Hold KCL AB Wound cultures pending As per Podiatry and ID and Medical Team OOB as naty/Elevate legs Montor labs, I/O, sats., cultures. Will follow D/C all ETOH d/w him again.
[2018-01-31] MEDS: Hydrocerin(120 gm) TOP SCH (09:19)
[2018-01-31] MEDS: Mupirocin 2% Ointment 15 GM TUBE TOP SCH (09:19)
[2018-01-31] MEDS: Linezolid 600 mg in D5W 300 ml 600 MG/300 ML BAG IVPB SCH ×2 (09:24→23:26)
[2018-01-31] MEDS: Multivitamin With Minerals Tab PO SCH (09:31)
[2018-01-31] MEDS: Cholecalciferol 1,000 INTLU TAB PO SCH (09:32)
--- NOTE | 2018-01-31 11:19 | CP.PCM.PN ---
Subjective - Date & Time of Evaluation Date of Evaluation: 01/31/18 Time of Evaluation: 07:40 - Subjective Subjective: IM progress note for Dr. Evgeny Arreola, PGY-1 Pt S & E at bedside at 0740 Pt reports continued SOB, LE swelling. Denies CP, N & V, F & C. Is tolerating diet, ambulating with airboots in place per nursing. Objective - Vital Signs/Intake and Output Vital Signs (last 24 hours): Temp Pulse Resp BP Pulse Ox 98.2 F 69 19 101/65 100 01/31/18 06:00 01/31/18 09:31 01/31/18 06:00 01/31/18 09:31 01/31/18 06:00 Intake and Output: 01/31/18 01/31/18 06:59 18:59 Intake Total 620 Output Total 200 Balance 420 - Medications Medications: Current Medications Albuterol/Ipratropium (Duoneb 3 Mg/0.5 Mg (3 Ml) Ud) 3 ml IH Q6H PRN PRN Reason: Shortness of Breath Last Admin: 01/30/18 05:25 Dose: 3 ml Amiodarone HCl (Cordarone) 200 mg PO DAILY [facility] Last Admin: 01/31/18 09:31 Dose: 200 mg Apixaban (Eliquis) 5 mg PO BID [facility] PRN Reason: Protocol Last Admin: 01/31/18 09:30 Dose: 5 mg Carvedilol (Coreg) 25 mg PO BID [facility] Last Admin: 01/31/18 09:31 Dose: 25 mg Cholecalciferol (Vitamin D) 1,000 intlu PO DAILY [facility] Last Admin: 01/31/18 09:32 Dose: 1,000 intlu Folic Acid (Folic Acid) 1 mg PO DAILY [facility] Last Admin: 01/31/18 09:31 Dose: 1 mg Furosemide (Lasix) 40 mg IVP BID [facility] Last Admin: 01/31/18 09:25 Dose: 40 mg Aztreonam (Azactam 1 Gm) 100 mls @ 100 mls/hr IVPB Q8 [facility] PRN Reason: Protocol Stop: 02/06/18 22:01 Last Admin: 01/31/18 05:05 Dose: 100 mls/hr Linezolid (Zyvox 600mg/300ml D5w) 600 mg in 300 mls @ 200 mls/hr IVPB Q12 [facility] PRN Reason: Protocol Stop: 02/06/18 22:01 Last Admin: 01/31/18 09:24 Dose: 200 mls/hr Losartan Potassium (Cozaar) 100 mg PO DAILY [facility] Last Admin: 01/31/18 09:31 Dose: 100 mg Multi-Ingredient Cream (Hydrocerin Cream) 1 ea TOP DAILY [facility] Last Admin: 01/31/18 09:19 Dose: 1 applic Multivitamins/Minerals (Therapeutic-M Tab) 1 tab PO 0800 [facility] Last Admin: 01/31/18 09:31 Dose: 1 tab Mupirocin (Bactroban Ointment) 1 gm TOP DAILY [facility] Last Admin: 01/31/18 09:19 Dose: 1 applic Oxycodone/Acetaminophen (Percocet 5/325 Mg Tab) 1 tab PO Q6H PRN PRN Reason: Pain, moderate (4-7) Stop: 02/01/18 11:32 Last Admin: 01/31/18 09:52 Dose: 1 tab Potassium Chloride (K-Dur 20 Meq Er Tab) 20 meq PO TID [facility] Last Admin: 01/30/18 19:04 Dose: 20 meq Thiamine HCl (Vitamin B1 Tab) 100 mg PO DAILY [facility] Last Admin: 01/31/18 09:31 Dose: 100 mg - Labs Labs: 01/30/18 06:20 01/31/18 06:00 PT 23.6 SECONDS (9.4-12.5) H 01/28/18 15:50 INR 2.04 (0.93-1.08) H 01/28/18 15:50 APTT 36.7 Seconds (25.1-36.5) H 01/28/18 15:50 - Constitutional Appears: Non-toxic, No Acute Distress - Head Exam Head Exam: ATRAUMATIC, NORMAL INSPECTION, NORMOCEPHALIC - Eye Exam Eye Exam: EOMI, Normal appearance - ENT Exam ENT Exam: Mucous Membranes Moist, Normal Exam - Neck Exam Neck Exam: Full ROM, Normal Inspection - Respiratory Exam Respiratory Exam: Clear to Ausculation Bilateral, NORMAL BREATHING PATTERN - Cardiovascular Exam Cardiovascular Exam: REGULAR RHYTHM, +S1, +S2 - GI/Abdominal Exam GI & Abdominal Exam: Soft, Normal Bowel Sounds. absent: Distended (obese), Tenderness - Extremities Exam Extremities Exam: Pedal Edema (bilateral). absent: Normal Inspection, Tenderness Additional comments: Erythema of left lower leg 2-3+ pitting edema bilaterally, reaching up to posterior thighs - Neurological Exam Neurological Exam: Alert, Awake, CN II-XII Intact, Oriented x3 - Psychiatric Exam Psychiatric exam: Normal Affect, Normal Mood - Skin Skin Exam: Dry, Intact, Normal Color, Warm Additional comments: excluding lower extremities, please see extremities for exam findings Assessment and Plan - Assessment and Plan (Free Text) Assessment: 67M w/PMH sig for HTN, COPD, CHF (s/p pacemaker), afib (on Eliquis) admitted w/ acute CHF exacerbation and B/L LE cellulitis Plan: Acute on chronic CHF exacerbation- systolic dysfunction Coreg Lasix Amiodarone Strict I/O's Daily wts Cardiology recs- Cont IV Lasix. Hold KCl. Ab, FU wound cx, OOB as naty, elevate legs, monitor- will follow, ETOH cessation Right LE cellulitis Wound cx w/gram neg rods, gram pos cocci- sensitivies pending Linezolid Aztreonam Blood neg x 48H Urine neg Skin care Pods following- wound care for L foot, skin care for LE, FU wound cx, cont Abx as per ID, will follow ID consulted Elevate Legs while in bed R knee effusion Ortho consulted Hx ETOH abuse CIWA protocol Ativan PRN Thiamine Folic acid Vitamin D MV COPD Duonebs PRN O2 via NC Sao2 target 94% HTN Home meds- Losartan, coreg Hx afib Home meds- Eliquis, Amiodarone Chronic pain Percocet PRN GI/DVT ppx On Eliquis Protonix Dispo: cultures sensitivities pending ID recs for PO Ab HHD PT/OT DW attending [place], PGY-1
[2018-01-31 11:51] VITALS: RESP 20
--- NOTE | 2018-01-31 14:13 | RAD ---
PROCEDURE: Right Knee Radiographs. HISTORY: R knee pain COMPARISON: None. FINDINGS: BONES: Normal. No fracture. JOINTS: There is a right knee prosthesis with no fracture or loosening JOINT EFFUSION: None. OTHER FINDINGS: None. IMPRESSION: Negative study
--- NOTE | 2018-01-31 14:34 | CP.PCM.PN ---
Subjective - Date & Time of Evaluation Date of Evaluation: 01/31/18 Time of Evaluation: 09:50 - Subjective Subjective: Patient is feeling better, less left leg swelling, no fevers, no diarrhea. Objective - Vital Signs/Intake and Output Vital Signs (last 24 hours): Temp Pulse Resp BP Pulse Ox 98.2 F 72 19 112/68 100 01/31/18 06:00 01/31/18 06:00 01/31/18 06:00 01/31/18 06:00 01/31/18 06:00 Intake and Output: 01/31/18 01/31/18 06:59 18:59 Intake Total 620 Output Total 200 Balance 420 - Medications Medications: Current Medications Albuterol/Ipratropium (Duoneb 3 Mg/0.5 Mg (3 Ml) Ud) 3 ml IH Q6H PRN PRN Reason: Shortness of Breath Last Admin: 01/30/18 05:25 Dose: 3 ml Amiodarone HCl (Cordarone) 200 mg PO DAILY [facility] Last Admin: 01/30/18 10:33 Dose: 200 mg Apixaban (Eliquis) 5 mg PO BID [facility] PRN Reason: Protocol Last Admin: 01/30/18 19:04 Dose: 5 mg Carvedilol (Coreg) 25 mg PO BID [facility] Last Admin: 01/30/18 19:04 Dose: 25 mg Cholecalciferol (Vitamin D) 1,000 intlu PO DAILY [facility] Last Admin: 01/30/18 10:34 Dose: 1,000 intlu Folic Acid (Folic Acid) 1 mg PO DAILY [facility] Last Admin: 01/30/18 10:33 Dose: 1 mg Furosemide (Lasix) 40 mg IVP BID [facility] Last Admin: 01/30/18 19:04 Dose: 40 mg Aztreonam (Azactam 1 Gm) 100 mls @ 100 mls/hr IVPB Q8 [facility] PRN Reason: Protocol Stop: 02/06/18 22:01 Last Admin: 01/31/18 05:05 Dose: 100 mls/hr Linezolid (Zyvox 600mg/300ml D5w) 600 mg in 300 mls @ 200 mls/hr IVPB Q12 [facility] PRN Reason: Protocol Stop: 02/06/18 22:01 Last Admin: 01/30/18 21:38 Dose: 200 mls/hr Losartan Potassium (Cozaar) 100 mg PO DAILY [facility] Last Admin: 01/30/18 10:34 Dose: 100 mg Multi-Ingredient Cream (Hydrocerin Cream) 1 ea TOP DAILY [facility] Last Admin: 01/30/18 10:36 Dose: 1 applic Multivitamins/Minerals (Therapeutic-M Tab) 1 tab PO 0800 [facility] Last Admin: 01/30/18 10:39 Dose: 1 tab Mupirocin (Bactroban Ointment) 1 gm TOP DAILY [facility] Last Admin: 01/30/18 10:35 Dose: 1 applic Oxycodone/Acetaminophen (Percocet 5/325 Mg Tab) 1 tab PO Q6H PRN PRN Reason: Pain, moderate (4-7) Stop: 02/01/18 11:32 Last Admin: 01/31/18 05:04 Dose: 1 tab Potassium Chloride (K-Dur 20 Meq Er Tab) 20 meq PO TID [facility] Last Admin: 01/30/18 19:04 Dose: 20 meq Thiamine HCl (Vitamin B1 Tab) 100 mg PO DAILY [facility] Last Admin: 01/30/18 10:34 Dose: 100 mg - Labs Labs: 01/30/18 06:20 01/31/18 06:00 PT 23.6 SECONDS (9.4-12.5) H 01/28/18 15:50 INR 2.04 (0.93-1.08) H 01/28/18 15:50 APTT 36.7 Seconds (25.1-36.5) H 01/28/18 15:50 - Constitutional Appears: Non-toxic, Chronically Ill - Head Exam Head Exam: NORMAL INSPECTION - ENT Exam ENT Exam: Mucous Membranes Moist - Neck Exam Neck Exam: absent: Meningismus - Respiratory Exam Respiratory Exam: Decreased Breath Sounds - Cardiovascular Exam Cardiovascular Exam: +S1, +S2 - GI/Abdominal Exam GI & Abdominal Exam: Soft. absent: Tenderness Assessment and Plan - Assessment and Plan (Free Text) Plan: Assessment Consider left leg skin and skin structure infection, growing Roultella and MSSA , clinically improving history of right leg skin and skin structure infection with Pseudomonas and MRSA HTN COPD S/P pacemaker placement chronic atrial fibrillation on anticoagulation S/P right knee replacement chronic CHF Plan on Zyvox and Azactam - patient can be switched to PO Zyvox and Bactrim to complete 7-10 days of therapy; should follow up with Podiatry as an outpatient
--- NOTE | 2018-01-31 15:31 | CP.PCM.PN ---
<Efra Berman - Last Filed: 01/31/18 15:27> Subjective - Date & Time of Evaluation Date of Evaluation: 01/31/18 Time of Evaluation: 15:27 - Subjective Subjective: Podiatry Progress Note- Dr. Coyne 67 y.o male seen and evaluated for weeping bilaterally, left anterior leg ulceration. and right posterior heel ulceration. Patient is seen resting comfortably in bed, in NAD, and AA0x3. Patient denies acute overnight events. Denies nausea, fever, chills, or chest pains. Shortness of breath improved. No new pedal complaints. Objective - Vital Signs/Intake and Output Vital Signs (last 24 hours): Temp Pulse Resp BP Pulse Ox 97.6 F 78 20 92/63 L 100 01/31/18 11:50 01/31/18 14:00 01/31/18 11:50 01/31/18 11:50 01/31/18 06:00 Intake and Output: 01/31/18 01/31/18 06:59 18:59 Intake Total 620 540 Output Total 200 300 Balance 420 240 - Medications Medications: Current Medications Albuterol/Ipratropium (Duoneb 3 Mg/0.5 Mg (3 Ml) Ud) 3 ml IH Q6H PRN PRN Reason: Shortness of Breath Last Admin: 01/30/18 05:25 Dose: 3 ml Amiodarone HCl (Cordarone) 200 mg PO DAILY [facility] Last Admin: 01/31/18 09:31 Dose: 200 mg Apixaban (Eliquis) 5 mg PO BID [facility] PRN Reason: Protocol Last Admin: 01/31/18 09:30 Dose: 5 mg Carvedilol (Coreg) 25 mg PO BID [facility] Last Admin: 01/31/18 09:31 Dose: 25 mg Cholecalciferol (Vitamin D) 1,000 intlu PO DAILY [facility] Last Admin: 01/31/18 09:32 Dose: 1,000 intlu Folic Acid (Folic Acid) 1 mg PO DAILY [facility] Last Admin: 01/31/18 09:31 Dose: 1 mg Furosemide (Lasix) 40 mg PO BID [facility] Furosemide (Lasix) 40 mg PO ONCE ONE Stop: 01/31/18 21:01 Aztreonam (Azactam 1 Gm) 100 mls @ 100 mls/hr IVPB Q8 [facility] PRN Reason: Protocol Stop: 02/06/18 22:01 Last Admin: 01/31/18 14:38 Dose: 100 mls/hr Linezolid (Zyvox 600mg/300ml D5w) 600 mg in 300 mls @ 200 mls/hr IVPB Q12 [facility] PRN Reason: Protocol Stop: 02/06/18 22:01 Last Admin: 01/31/18 09:24 Dose: 200 mls/hr Losartan Potassium (Cozaar) 100 mg PO DAILY [facility] Last Admin: 01/31/18 09:31 Dose: 100 mg Multi-Ingredient Cream (Hydrocerin Cream) 1 ea TOP DAILY [facility] Last Admin: 01/31/18 09:19 Dose: 1 applic Multivitamins/Minerals (Therapeutic-M Tab) 1 tab PO 0800 [facility] Last Admin: 01/31/18 09:31 Dose: 1 tab Mupirocin (Bactroban Ointment) 1 gm TOP DAILY [facility] Last Admin: 01/31/18 09:19 Dose: 1 applic Oxycodone/Acetaminophen (Percocet 5/325 Mg Tab) 1 tab PO Q6H PRN PRN Reason: Pain, moderate (4-7) Stop: 02/01/18 11:32 Last Admin: 01/31/18 09:52 Dose: 1 tab Potassium Chloride (K-Dur 20 Meq Er Tab) 20 meq PO TID [facility] Last Admin: 01/30/18 19:04 Dose: 20 meq Thiamine HCl (Vitamin B1 Tab) 100 mg PO DAILY [facility] Last Admin: 01/31/18 09:31 Dose: 100 mg - Labs Labs: 01/30/18 06:20 01/31/18 06:00 PT 23.6 SECONDS (9.4-12.5) H 01/28/18 15:50 INR 2.04 (0.93-1.08) H 01/28/18 15:50 APTT 36.7 Seconds (25.1-36.5) H 01/28/18 15:50 - Constitutional Appears: Well, Non-toxic, No Acute Distress - Extremities Exam Extremities Exam: absent: Calf Tenderness Additional comments: Bilateral LE exam VASC: DP/PT pulses are palpable 1/4, Cap refill time: < 3 sec to all digits, Temp gradient: cool to cool b/l with no increase in warmth to lower right leg, 3 + pitting edema noted on the distal leg bilaterally DERM: Wound approximately 3 x 3 x 0.2cm noted on the proximomedial aspect of the left leg with mild undermining noted to lateral wound, wound base is mixed fibrogranular with periwound erythema and hyperpigmentation noted, no purulence drainage, no active bleeding, no increase in warmth, no odor. Brawny discoloration noted to bilateral legs. Generalized weeping drainage to LE bilaterally from LE swelling. Wound approximately 1 x 1 x.1cm to the right posterior ankle with wound base mainly fibrous, no erythema, no drainage, no increase in warmth or odor appreciated. No tunneling or tracking noted. NEURO: Protective sensation mildly diminished ORTHO: No pain on palpation bilateral LE. - Neurological Exam Neurological Exam: Alert, Awake, Oriented x3 - Psychiatric Exam Psychiatric exam: Normal Affect, Normal Mood Assessment and Plan - Assessment and Plan (Free Text) Assessment: 67 year old male with Stage 3 non-pressure ulcer L leg, right posterior ankle ulcer secondary to shoe gear and B/L weeping drainage Plan: Patient examined and evaluated Discussed plan with attending Dr. Coyne Afebrile, absent leukocytosis WBC=7.6 on 01/30/18 Cleanse ulceration with saline solution, dressed with bactroban, dsd, and kerlix LE cleansed with saline solution. Right LE to air out Cleansed right ulceration with saline solution, applied mupricin and optifoam Cleansed left ulceration with saline solution, applied mupricin, dsd, ABD, and kerlix Eucerin applied to bilateral LE Wound culture taken of left leg ulcer on 01/29/18 Raoultella Planticola, Staphylococcus Aureus C/w abx per ID Thank you for allowing us to take part in patient's care Will continue to follow while in house Ordered offloading boots for heels. To be worn at all times while in bed. Thank you Upon discharge patient to follow up with Dr. Fernandez in wound care clinic without 1 week Continue to change dressing daily. Cleansed with saline, applied mupricin and dsd <Demarco Coyne - Last Filed: 01/31/18 16:04> Objective - Vital Signs/Intake and Output Vital Signs (last 24 hours): Temp Pulse Resp BP Pulse Ox 97.6 F 78 20 92/63 L 100 01/31/18 11:50 01/31/18 14:00 01/31/18 11:50 01/31/18 11:50 01/31/18 06:00 Intake and Output: 01/31/18 01/31/18 06:59 18:59 Intake Total 620 540 Output Total 200 300 Balance 420 240 - Medications Medications: Current Medications Albuterol/Ipratropium (Duoneb 3 Mg/0.5 Mg (3 Ml) Ud) 3 ml IH Q6H PRN PRN Reason: Shortness of Breath Last Admin: 01/30/18 05:25 Dose: 3 ml Amiodarone HCl (Cordarone) 200 mg PO DAILY [facility] Last Admin: 01/31/18 09:31 Dose: 200 mg Apixaban (Eliquis) 5 mg PO BID [facility] PRN Reason: Protocol Last Admin: 01/31/18 09:30 Dose: 5 mg Carvedilol (Coreg) 25 mg PO BID [facility] Last Admin: 01/31/18 09:31 Dose: 25 mg Cholecalciferol (Vitamin D) 1,000 intlu PO DAILY [facility] Last Admin: 01/31/18 09:32 Dose: 1,000 intlu Folic Acid (Folic Acid) 1 mg PO DAILY [facility] Last Admin: 01/31/18 09:31 Dose: 1 mg Furosemide (Lasix) 40 mg PO BID [facility] Furosemide (Lasix) 40 mg PO ONCE ONE Stop: 01/31/18 21:01 Aztreonam (Azactam 1 Gm) 100 mls @ 100 mls/hr IVPB Q8 [facility] PRN Reason: Protocol Stop: 02/06/18 22:01 Last Admin: 01/31/18 14:38 Dose: 100 mls/hr Linezolid (Zyvox 600mg/300ml D5w) 600 mg in 300 mls @ 200 mls/hr IVPB Q12 [facility] PRN Reason: Protocol Stop: 02/06/18 22:01 Last Admin: 01/31/18 09:24 Dose: 200 mls/hr Losartan Potassium (Cozaar) 100 mg PO DAILY [facility] Last Admin: 01/31/18 09:31 Dose: 100 mg Multi-Ingredient Cream (Hydrocerin Cream) 1 ea TOP DAILY [facility] Last Admin: 01/31/18 09:19 Dose: 1 applic Multivitamins/Minerals (Therapeutic-M Tab) 1 tab PO 0800 [facility] Last Admin: 01/31/18 09:31 Dose: 1 tab Mupirocin (Bactroban Ointment) 1 gm TOP DAILY [facility] Last Admin: 01/31/18 09:19 Dose: 1 applic Oxycodone/Acetaminophen (Percocet 5/325 Mg Tab) 1 tab PO Q6H PRN PRN Reason: Pain, moderate (4-7) Stop: 02/01/18 11:32 Last Admin: 01/31/18 09:52 Dose: 1 tab Potassium Chloride (K-Dur 20 Meq Er Tab) 20 meq PO TID [facility] Last Admin: 01/30/18 19:04 Dose: 20 meq Thiamine HCl (Vitamin B1 Tab) 100 mg PO DAILY [facility] Last Admin: 01/31/18 09:31 Dose: 100 mg - Labs Labs: 01/30/18 06:20 01/31/18 06:00 PT 23.6 SECONDS (9.4-12.5) H 01/28/18 15:50 INR 2.04 (0.93-1.08) H 01/28/18 15:50 APTT 36.7 Seconds (25.1-36.5) H 01/28/18 15:50 Attending/Attestation - Attestation I have personally seen and examined this patient.: Yes I have fully participated in the care of the patient.: Yes I have reviewed all pertinent clinical information, including history, physical exam and plan: Yes
--- NOTE | 2018-01-31 23:43 | CON ---
DATE: 01/31/2018 INPATIENT CONSULT REASON FOR CONSULTATION: Right lower extremity cellulitis and pain and evaluation status post right total knee replacement. HISTORY OF PRESENT ILLNESS: This is a 67-year-old gentleman with a history of congestive heart failure, was admitted for an acute exacerbation, who presented with bilateral lower extremity edema. Patient's past medical history is significant for a right total knee replacement done approximately 7 years ago at another facility. Patient is currently being treated for right lower extremity cellulitis and also newly diagnosed with some peripheral vascular disease. Today, patient states that his knee is doing well. He states he really has no pain in his right knee. He said he has not had issues with the right knee since his surgery. On examination of the right knee, he has unhealed midline incision. There is some generalized right lower extremity swelling, but no obvious right knee effusion. He has active range of motion for approximately -5 to -7 degrees of extension to approximately a 110 of knee flexion. He is grossly stable varus valgus stress. His thigh and calf were otherwise soft and nontender. He does have chronic skin changes due to the venous stasis. Grossly, he is moving all his toes and his ankle without any difficulties, grossly neurovascularly intact. He does not have x-rays on this admission, but x-rays from approximately 6 weeks ago showed no acute fractures or dislocation as well as the right total knee implant in good position with no evidence of loosening or periprosthetic fracture. CAT scan done on this admission showed again no obvious loosening, no periprosthetic fracture. PLAN: At this point, I feel that his symptoms are not secondary to his right knee. I recommend continued management of his peripheral vascular disease and cellulitis, and we will follow up as needed. Gucci Lovett MD
[2018-02-01] MEDS: Albuterol-Ipratrop 3 mg / 0.5 (3 ml) UD IH PRN (03:35)
[2018-02-01 06:44] VITALS: TEMP 97; O2SAT 96
[2018-02-01] MEDS: Aztreonam 1 Gm in NS 100mL 100 ML IVPB SCH (06:53)
[2018-02-01 06:59] LABS: BLOOD UREA NITROGEN 23 mg/dL (7-21); CALCIUM 8.4 mg/dL (8.4-10.5); GFR AFRICAN-AMERICAN > 60; GFR NON-AFRICAN AMERICAN > 60
--- NOTE | 2018-02-01 07:13 | CP.PCM.PN ---
Subjective - Date & Time of Evaluation Date of Evaluation: 02/01/18 Time of Evaluation: 07:00 - Subjective Subjective: Stable on 2R. He feels OK. No CP or SOB at bedrest. No ambulation. V/S noted. V. Paced PE: Lungs: few rhonchi Cor.: S1S2 Abd.: soft Ext. chronic edema and erythema, improved LE and scrotal edema Neuro.: alert I/O= 960/700 recorded Labs noted: K+= 5.0 BUN= 25, Cr.= 1.1, Co2 = 37 BC X 2 NG at 3 days. Wound C+S: + S.A., + second org. Objective - Vital Signs/Intake and Output Vital Signs (last 24 hours): Temp Pulse Resp BP Pulse Ox 97.0 F L 83 20 102/70 96 02/01/18 06:00 02/01/18 06:00 02/01/18 06:00 02/01/18 06:00 02/01/18 06:00 Intake and Output: 02/01/18 02/01/18 06:59 18:59 Intake Total 420 Output Total 400 Balance 20 - Medications Medications: Current Medications Albuterol/Ipratropium (Duoneb 3 Mg/0.5 Mg (3 Ml) Ud) 3 ml IH Q6H PRN PRN Reason: Shortness of Breath Last Admin: 02/01/18 03:35 Dose: 3 ml Amiodarone HCl (Cordarone) 200 mg PO DAILY [facility] Last Admin: 01/31/18 09:31 Dose: 200 mg Apixaban (Eliquis) 5 mg PO BID [facility] PRN Reason: Protocol Last Admin: 01/31/18 18:01 Dose: 5 mg Carvedilol (Coreg) 25 mg PO BID [facility] Last Admin: 01/31/18 18:08 Dose: Not Given Cholecalciferol (Vitamin D) 1,000 intlu PO DAILY [facility] Last Admin: 01/31/18 09:32 Dose: 1,000 intlu Folic Acid (Folic Acid) 1 mg PO DAILY [facility] Last Admin: 01/31/18 09:31 Dose: 1 mg Furosemide (Lasix) 40 mg PO BID [facility] Losartan Potassium (Cozaar) 100 mg PO DAILY [facility] Last Admin: 01/31/18 09:31 Dose: 100 mg Multi-Ingredient Cream (Hydrocerin Cream) 1 ea TOP DAILY [facility] Last Admin: 01/31/18 09:19 Dose: 1 applic Multivitamins/Minerals (Therapeutic-M Tab) 1 tab PO 0800 [facility] Last Admin: 01/31/18 09:31 Dose: 1 tab Mupirocin (Bactroban Ointment) 1 gm TOP DAILY [facility] Last Admin: 01/31/18 09:19 Dose: 1 applic Oxycodone/Acetaminophen (Percocet 5/325 Mg Tab) 1 tab PO Q6H PRN PRN Reason: Pain, moderate (4-7) Stop: 02/01/18 11:32 Last Admin: 01/31/18 20:01 Dose: 1 tab Potassium Chloride (K-Dur 20 Meq Er Tab) 20 meq PO TID [facility] Last Admin: 01/30/18 19:04 Dose: 20 meq Thiamine HCl (Vitamin B1 Tab) 100 mg PO DAILY [facility] Last Admin: 01/31/18 09:31 Dose: 100 mg Trimethoprim/Sulfamethoxazole (Bactrim Ds Tab) 1 tab PO BID [facility] PRN Reason: Protocol Stop: 02/04/18 10:01 - Labs Labs: 01/30/18 06:20 02/01/18 06:00 PT 23.6 SECONDS (9.4-12.5) H 01/28/18 15:50 INR 2.04 (0.93-1.08) H 01/28/18 15:50 APTT 36.7 Seconds (25.1-36.5) H 01/28/18 15:50 Assessment and Plan - Assessment and Plan (Free Text) Assessment: Cellulitis LLEs, Non-healing wound LLE SHERIDAN CCM- ETOH related Continued beer drinking and dietary non-compliance CHF Chronic AF/V. Paced on Eliquis ICD HBP Prostate cancer with seed implants Right TKR Cataracts Plan: Continue PO Lasix. Hold KCL for now AB > PO As per Podiatry and ID and Ortho. and Medical Team OOB as naty/Elevate legs when sitting D/C all ETOH and salty foods d/w him again (his was present today). They agree.
[2018-02-01] MEDS: Multivitamin With Minerals Tab PO SCH (08:04)
[2018-02-01] MEDS: Oxycodone/Acetaminophen 5/325 mg Tab PO PRN (08:19)
[2018-02-01] MEDS: Cholecalciferol 1,000 INTLU TAB PO SCH (09:53)
[2018-02-01] MEDS: Hydrocerin(120 gm) TOP SCH (09:55)
[2018-02-01] MEDS: Mupirocin 2% Ointment 15 GM TUBE TOP SCH (09:55)
[2018-02-01] MEDS ORDERED: Tmp-Smz 800 mg-160 mg DS Tab PO SCH (10:00)
--- NOTE | 2018-02-01 10:40 | CP.PCM.DIS ---
<Giovanni Sandoval - Last Filed: 02/01/18 15:19> Provider - Provider Date of Admission: 01/28/18 15:36 Attending physician: Melissa Thorne MD Primary care physician: Luis Knott MD Consults: Pods: Dworkin Cards: Gavinohansel ID: [email or web address] Ortho: Mastromonaco Time Spent in preparation of Discharge (in minutes): 45 Hospital Course - Lab Results Lab Results: Micro Results 01/29/18 17:38 Leg - Left Gram Stain - Final 01/29/18 17:38 Leg - Left Wound Culture - Final Raoultella Planticola Staphylococcus Aureus 01/28/18 21:10 Urine,Clean Catch Urine Culture - Final No Growth (<1,000 CFU/ML) Most Recent Lab Values WBC 7.6 10^3/ul (4.5-11.0) 01/30/18 06:20 RBC 4.52 10^6/uL (3.5-6.1) 01/30/18 06:20 Hgb 13.9 g/dL (14.0-18.0) L 01/30/18 06:20 Hct 43.9 % (42.0-52.0) 01/30/18 06:20 MCV 97.1 fl (80.0-105.0) 01/30/18 06:20 MCH 30.8 pg (25.0-35.0) 01/30/18 06:20 MCHC 31.7 g/dl (31.0-37.0) 01/30/18 06:20 RDW 17.5 % (11.5-14.5) H 01/30/18 06:20 Plt Count 174 10^3/uL (120.0-450.0) 01/30/18 06:20 MPV 10.0 fl (7.0-11.0) 01/30/18 06:20 Gran % 82.2 % (50.0-68.0) H 01/30/18 06:20 Lymph % (Auto) 7.7 % (22.0-35.0) L 01/30/18 06:20 Leslie % (Auto) 8.0 % (1.0-6.0) H 01/30/18 06:20 Eos % (Auto) 2.0 % (1.5-5.0) 01/30/18 06:20 Baso % (Auto) 0.1 % (0.0-3.0) 01/30/18 06:20 Gran # 6.28 (1.4-6.5) 01/30/18 06:20 Lymph # (Auto) 0.6 (1.2-3.4) L 01/30/18 06:20 Leslie # (Auto) 0.6 (0.1-0.6) 01/30/18 06:20 Eos # (Auto) 0.2 (0.0-0.7) 01/30/18 06:20 Baso # (Auto) 0.01 K/mm3 (0.0-2.0) 01/30/18 06:20 PT 23.6 SECONDS (9.4-12.5) H 01/28/18 15:50 INR 2.04 (0.93-1.08) H 01/28/18 15:50 APTT 36.7 Seconds (25.1-36.5) H 01/28/18 15:50 pO2 35 mm/Hg (30-55) 01/28/18 13:53 VBG pH 7.36 (7.32-7.43) 01/28/18 13:53 VBG pCO2 71.0 (40-60) H* 01/28/18 13:53 VBG HCO3 40.1 mmol/l (21-28) H 01/28/18 13:53 VBG Total CO2 42.3 mmol.L (22-28) H 01/28/18 13:53 VBG O2 Sat (Calc) 69.5 % (40-65) H 01/28/18 13:53 VBG Base Excess 11.5 mmol/L (0.0-2.0) H 01/28/18 13:53 VBG Potassium 3.5 mmol/L (3.6-5.2) L 01/28/18 13:53 Sodium 131.0 mmol/L (132-148) L 01/28/18 13:53 Chloride 91.0 mmol/L (98-107) L 01/28/18 13:53 Glucose 95 mg/dl (75-110) 01/28/18 13:53 Lactate 1.3 mmol/L (0.7-2.1) 01/28/18 13:53 FiO2 21.0 % 01/28/18 13:53 Sodium 132 mmol/L (132-148) 02/01/18 06:00 Potassium 5.0 mmol/L (3.6-5.0) 02/01/18 06:00 Chloride 88 mmol/L (98-107) L 02/01/18 06:00 Carbon Dioxide 37 mmol/L (21-33) H 02/01/18 06:00 Anion Gap 11 (10-20) 02/01/18 06:00 BUN 23 mg/dL (7-21) H 02/01/18 06:00 Creatinine 1.1 mg/dl (0.8-1.5) 02/01/18 06:00 Est GFR ( Amer) > 60 02/01/18 06:00 Est GFR (Non-Af Amer) > 60 02/01/18 06:00 Random Glucose 87 mg/dL (70-110) 02/01/18 06:00 Calcium 8.4 mg/dL (8.4-10.5) 02/01/18 06:00 Phosphorus 3.3 mg/dL (2.5-4.5) 01/28/18 13:45 Magnesium 2.1 mg/dL (1.7-2.2) 01/28/18 13:45 Total Bilirubin 1.1 mg/dL (0.2-1.3) 01/30/18 06:20 AST 25 U/L (17-59) 01/30/18 06:20 ALT 31 U/L (7-56) 01/30/18 06:20 Alkaline Phosphatase 140 U/L (38-126) H 01/30/18 06:20 Troponin I 0.02 ng/mL 01/28/18 13:45 NT-Pro-B Natriuret Pep 7840 pg/mL (0-450) H 01/28/18 13:45 Total Protein 6.5 g/dL (5.8-8.3) 01/30/18 06:20 Albumin 3.5 g/dL (3.0-4.8) 01/30/18 06:20 Globulin 3.0 gm/dL 01/30/18 06:20 Albumin/Globulin Ratio 1.2 (1.1-1.8) 01/30/18 06:20 Procalcitonin 0.07 NG/ML (0.19-0.49) L 01/28/18 13:45 Venous Blood Potassium 3.5 mmol/L (3.6-5.2) L 01/28/18 13:53 Urine Color Yellow (YELLOW) 01/28/18 21:10 Urine Appearance Clear (CLEAR) 01/28/18 21:10 Urine pH 6.0 (4.7-8.0) 01/28/18 21:10 Ur Specific Bush 1.010 (1.005-1.035) 01/28/18 21:10 Urine Protein Negative mg/dL (<30 mg/dL) 01/28/18 21:10 Urine Glucose (UA) Negative mg/dL (NEGATIVE) 01/28/18 21:10 Urine Ketones Negative mg/dL (NEGATIVE) 01/28/18 21:10 Urine Blood Negative (NEGATIVE) 01/28/18 21:10 Urine Nitrate Negative (NEGATIVE) 01/28/18 21:10 Urine Bilirubin Negative (NEGATIVE) 01/28/18 21:10 Urine Urobilinogen 2.0 E.U./dL (<1 E.U./dL) H 01/28/18 21:10 Ur Leukocyte Esterase Negative Alex/uL (NEGATIVE) 01/28/18 21:10 Urine Opiates Screen Negative (NEGATIVE) 01/30/18 00:55 Urine Methadone Screen Negative (NEGATIVE) 01/30/18 00:55 Ur Barbiturates Screen Negative (NEGATIVE) 01/30/18 00:55 Ur Phencyclidine Scrn Negative (NEGATIVE) 01/30/18 00:55 Ur Amphetamines Screen Negative (NEGATIVE) 01/30/18 00:55 U Benzodiazepines Scrn Negative (NEGATIVE) 01/30/18 00:55 U Oth Cocaine Metabols Negative (NEGATIVE) 01/30/18 00:55 U Cannabinoids Screen Negative (NEGATIVE) 01/30/18 00:55 Alcohol, Quantitative < 10 mg/dL (0-10) 01/28/18 13:45 - Hospital Course Hospital Course: On Admission: Patient is a 67 year old male with a past medical history of hypertension, COPD , CHF (s/p pacemaker), afib (on Eliquis) presenting to the hospital with shortness of breath, dyspnea on exertion and worsening lower extremity. The patient was recently admitted at [facility] [place] on 12/12/17 for right leg cellulitis, which was treated for 7 days with IV abx. Patient reports he was also admitted at [facility] after his admission at [facility] [facility] for his right leg cellulits. He was treated inpatient for approximately 6 days of abx before being discharged. The patient has been following with Dr. Fernandez for wound care when she had instructed the patient to come to the emergency room. The patient's lower extremities have been increasing in size and have began to weep. The patient's is at bedside and states that the patient is not compliant with his diet it home, particularly his fluid intake. The patient admits that he drinks as much fluids as he wants and has meals high in salt. He is no longer able to tolerate laying flat on his back and has been sleeping on a recliner for years. He is able to walk on his own without assistance but has began to be becoming increasing short of breath with exertion over the past week. He is unable to walk one block without becoming short of breath. Denies fevers, chills, nausea, vomiting , diarrhea, constipation, chest pain, palpitations, abdominal pain, headaches, vision changes, numbness or tingling. Hospital Course: This patient was admitted with CHF exacerbation. was started on lasix 40 IV BID and successfully diuresed. Presented with R. LE cellulitis that was treated sucefully with IV abx. He was discharged with zyvox and bactrim for 7 days. He had previosuly developed some fluid around his knee and was seen by ortho but did not thinki this was a primary knee problem and this resolved with further diuresis and abx. Patient was discharged with instructions to follow up with cardio and primary. Discharge Exam - Head Exam Head Exam: NORMAL INSPECTION - Eye Exam Eye Exam: EOMI, Normal appearance, PERRL Pupil Exam: NORMAL ACCOMODATION, PERRL - Respiratory Exam Respiratory Exam: Clear to PA & Lateral, NORMAL BREATHING PATTERN, UNREMARKABLE - Cardiovascular Exam Cardiovascular Exam: REGULAR RHYTHM. absent: Tachycardia - GI/Abdominal Exam GI & Abdominal Exam: Normal Bowel Sounds, Soft, Unremarkable. absent: Tenderness - Extremities Exam Extremities exam: normal inspection - Neurological Exam Neurological exam: Alert, CN II-XII Intact, Normal Gait, Oriented x3, Reflexes Normal - Psychiatric Exam Psychiatric exam: Normal Affect, Normal Mood - Skin Skin Exam: Dry, Intact, Normal Color, Warm Discharge Plan - Discharge Medications Prescriptions: Furosemide [Lasix] 60 mg PO BID 30 Days tablet Linezolid [Zyvox] 600 mg PO BID 14 Days tab Spironolactone [Aldactone] 25 mg PO DAILY #30 tablet Sulfamethoxazole/Trimethoprim [Bactrim DS 800 mg-160 mg] 1 tab PO BID #14 tab - Follow Up Plan Condition: STABLE Disposition: HOME/ ROUTINE Instructions: Heart Healthy Diet, Heart Failure, Adult (DC), Heart Failure (DC) , Heart Failure (GEN), Pacemaker (DC), Pacemaker (GEN), Pulmonary Edema (DC), Pulmonary Edema (GEN), Cellulitis (DC), Cellulitis (GEN), Ascites (DC), Ascites (GEN) Additional Instructions: Please follow up with your primary care doctor in one week. Please have a BMP done to monitor your potassium level as we have started Aldactone and that may affect your potassium level. Please also follow up thyroid function tests as you are taking amiodarone. Please follow up with your user experience architect within one week to review your medications. Please adhere to a low salt diet (2 gram sodium diet). I have provided you with instructions what and what not to eat. Please only drink between 1200 - 1500 mL of fluids per day. Please weight yourself daily in order to monitor your fluid balance. Please call your doctor if you see that you are gaining weight and he will change your medications. Please take the following medications: 1. Amiodarone 200mg by mouth daily 2. Eliquis 5mg by mouth daily 3. Coreg 25mg by mouth daily 4. Lasix 60mg by mouth twice per day 5. Zyvox 600mg by mouth twice per day 6. Losartan 100mg by mouth daily 7. Multivitamin by mouth daily 8. Aldactone 25mg by mouth daily 9. Bactrim 1 tablet by mouth twice per day 10 Diovan 320mg by mouth daily Please come back to the ED if symptoms return. Referrals: Luis Knott MD [Primary Care Provider] - Kike Meyer MD [Staff Provider] - Clinical Quality Measures - CQM - Heart Failure Ejection Fraction: Less Than 40 % Left Ventricular Function to be assessed after discharge: No MICH Inhibitor Prescribed: No Contraindication/Reason for not providing: ARB instead Beta-Joel Prescribed: Carvedilol Angiotensin II Receptor Joel Prescribed: Yes AnticoagulationTherapy for Atrial Fibrillation/Atrialflutter: Yes Aldosterone Antagonist Prescribed: Yes Hydralazine Nitrate Prescribed: No Contraindication/Reason for not providing: Not indicated Implantable Cardioverter Defibrillator Therapy: Yes Cardiac Resynchronization Therapy Prescribed: No Contraindication/Reason for not providing: not indicated Will be discharged to: Home Follow Up Date (must be within 7 days from discharge): 02/04/18 Follow Up Time: 09:00 <Jony Hallman - Last Filed: 02/01/18 18:22> Provider - Provider Date of Admission: 01/28/18 15:36 Attending physician: Melissa Thorne MD Primary care physician: Luis Knott MD Hospital Course - Lab Results Lab Results: Micro Results 01/29/18 17:38 Leg - Left Gram Stain - Final 01/29/18 17:38 Leg - Left Wound Culture - Final Raoultella Planticola Staphylococcus Aureus 01/28/18 21:10 Urine,Clean Catch Urine Culture - Final No Growth (<1,000 CFU/ML) Most Recent Lab Values WBC 7.6 10^3/ul (4.5-11.0) 01/30/18 06:20 RBC 4.52 10^6/uL (3.5-6.1) 01/30/18 06:20 Hgb 13.9 g/dL (14.0-18.0) L 01/30/18 06:20 Hct 43.9 % (42.0-52.0) 01/30/18 06:20 MCV 97.1 fl (80.0-105.0) 01/30/18 06:20 MCH 30.8 pg (25.0-35.0) 01/30/18 06:20 MCHC 31.7 g/dl (31.0-37.0) 01/30/18 06:20 RDW 17.5 % (11.5-14.5) H 01/30/18 06:20 Plt Count 174 10^3/uL (120.0-450.0) 01/30/18 06:20 MPV 10.0 fl (7.0-11.0) 01/30/18 06:20 Gran % 82.2 % (50.0-68.0) H 01/30/18 06:20 Lymph % (Auto) 7.7 % (22.0-35.0) L 01/30/18 06:20 Leslie % (Auto) 8.0 % (1.0-6.0) H 01/30/18 06:20 Eos % (Auto) 2.0 % (1.5-5.0) 01/30/18 06:20 Baso % (Auto) 0.1 % (0.0-3.0) 01/30/18 06:20 Gran # 6.28 (1.4-6.5) 01/30/18 06:20 Lymph # (Auto) 0.6 (1.2-3.4) L 01/30/18 06:20 Leslie # (Auto) 0.6 (0.1-0.6) 01/30/18 06:20 Eos # (Auto) 0.2 (0.0-0.7) 01/30/18 06:20 Baso # (Auto) 0.01 K/mm3 (0.0-2.0) 01/30/18 06:20 PT 23.6 SECONDS (9.4-12.5) H 01/28/18 15:50 INR 2.04 (0.93-1.08) H 01/28/18 15:50 APTT 36.7 Seconds (25.1-36.5) H 01/28/18 15:50 pO2 35 mm/Hg (30-55) 01/28/18 13:53 VBG pH 7.36 (7.32-7.43) 01/28/18 13:53 VBG pCO2 71.0 (40-60) H* 01/28/18 13:53 VBG HCO3 40.1 mmol/l (21-28) H 01/28/18 13:53 VBG Total CO2 42.3 mmol.L (22-28) H 01/28/18 13:53 VBG O2 Sat (Calc) 69.5 % (40-65) H 01/28/18 13:53 VBG Base Excess 11.5 mmol/L (0.0-2.0) H 01/28/18 13:53 VBG Potassium 3.5 mmol/L (3.6-5.2) L 01/28/18 13:53 Sodium 131.0 mmol/L (132-148) L 01/28/18 13:53 Chloride 91.0 mmol/L (98-107) L 01/28/18 13:53 Glucose 95 mg/dl (75-110) 01/28/18 13:53 Lactate 1.3 mmol/L (0.7-2.1) 01/28/18 13:53 FiO2 21.0 % 01/28/18 13:53 Sodium 132 mmol/L (132-148) 02/01/18 06:00 Potassium 5.0 mmol/L (3.6-5.0) 02/01/18 06:00 Chloride 88 mmol/L (98-107) L 02/01/18 06:00 Carbon Dioxide 37 mmol/L (21-33) H 02/01/18 06:00 Anion Gap 11 (10-20) 02/01/18 06:00 BUN 23 mg/dL (7-21) H 02/01/18 06:00 Creatinine 1.1 mg/dl (0.8-1.5) 02/01/18 06:00 Est GFR ( Amer) > 60 02/01/18 06:00 Est GFR (Non-Af Amer) > 60 02/01/18 06:00 Random Glucose 87 mg/dL (70-110) 02/01/18 06:00 Calcium 8.4 mg/dL (8.4-10.5) 02/01/18 06:00 Phosphorus 3.3 mg/dL (2.5-4.5) 01/28/18 13:45 Magnesium 2.1 mg/dL (1.7-2.2) 01/28/18 13:45 Total Bilirubin 1.1 mg/dL (0.2-1.3) 01/30/18 06:20 AST 25 U/L (17-59) 01/30/18 06:20 ALT 31 U/L (7-56) 01/30/18 06:20 Alkaline Phosphatase 140 U/L (38-126) H 01/30/18 06:20 Troponin I 0.02 ng/mL 01/28/18 13:45 NT-Pro-B Natriuret Pep 7840 pg/mL (0-450) H 01/28/18 13:45 Total Protein 6.5 g/dL (5.8-8.3) 05/24/18 06:20 Albumin 3.5 g/dL (3.0-4.8) 01/30/18 06:20 Globulin 3.0 gm/dL 01/30/18 06:20 Albumin/Globulin Ratio 1.2 (1.1-1.8) 01/30/18 06:20 Procalcitonin 0.07 NG/ML (0.19-0.49) L 01/28/18 13:45 Venous Blood Potassium 3.5 mmol/L (3.6-5.2) L 01/28/18 13:53 Urine Color Yellow (YELLOW) 01/28/18 21:10 Urine Appearance Clear (CLEAR) 01/28/18 21:10 Urine pH 6.0 (4.7-8.0) 01/28/18 21:10 Ur Specific Bush 1.010 (1.005-1.035) 01/28/18 21:10 Urine Protein Negative mg/dL (<30 mg/dL) 01/28/18 21:10 Urine Glucose (UA) Negative mg/dL (NEGATIVE) 01/28/18 21:10 Urine Ketones Negative mg/dL (NEGATIVE) 01/28/18 21:10 Urine Blood Negative (NEGATIVE) 01/28/18 21:10 Urine Nitrate Negative (NEGATIVE) 01/28/18 21:10 Urine Bilirubin Negative (NEGATIVE) 01/28/18 21:10 Urine Urobilinogen 2.0 E.U./dL (<1 E.U./dL) H 01/28/18 21:10 Ur Leukocyte Esterase Negative Alex/uL (NEGATIVE) 01/28/18 21:10 Urine Opiates Screen Negative (NEGATIVE) 01/30/18 00:55 Urine Methadone Screen Negative (NEGATIVE) 01/30/18 00:55 Ur Barbiturates Screen Negative (NEGATIVE) 01/30/18 00:55 Ur Phencyclidine Scrn Negative (NEGATIVE) 01/30/18 00:55 Ur Amphetamines Screen Negative (NEGATIVE) 01/30/18 00:55 U Benzodiazepines Scrn Negative (NEGATIVE) 01/30/18 00:55 U Oth Cocaine Metabols Negative (NEGATIVE) 01/30/18 00:55 U Cannabinoids Screen Negative (NEGATIVE) 01/30/18 00:55 Alcohol, Quantitative < 10 mg/dL (0-10) 01/28/18 13:45 Attending/Attestation - Attestation I have personally seen and examined this patient.: Yes I have fully participated in the care of the patient.: Yes I have reviewed all pertinent clinical information, including history, physical exam and plan: Yes Notes (Text): 02/01/18 18:14 Medical record note made by the resident after discussion with my direction and input after the patient was personally seen and examined by me. I have reviewed the chart and agree that the record accurately reflects by personal performance of the history, physical exam, data review, and medical decision-making, in the course for the patient. I have also personally directed the plan of care 67 year old male with a past medical history of hypertension, COPD, CHF (s/p pacemaker), afib (on Eliquis) was admitted with acute on chronic systolic CHF exacerbation and left leg cellulitis.Patient has responded well to IV lasix.Her dyspnea and leg swelling is improved.He is on room air and is ambulatory.His lasix dose has been changed to 60 mg PO bid and also has been started on aldactone.Patient cellulitis has improved with IV antibiotics.Wound cultures grew MRSA and Raoultella Planticola.He will be discharged home on Oral Linzolide and Bactrim as recommended by ID. Patient will follow up with PCP and Cardiology.Patient will also follow up with Podiatry. Management plan was discussed in detail with patient. Education was provided.
[2018-02-01 11:15] VITALS: PULSE 81
--- NOTE | 2018-02-01 12:12 | PN ---
DATE: 02/01/2018 SUBJECTIVE: The patient is in bed, in no acute distress, nontoxic. PHYSICAL EXAMINATION: VITAL SIGNS: Temperature is 97, blood pressure is 102/70, respiratory rate of 18. HEENT: Examination of HEENT is unremarkable. NECK: Supple. LUNGS: Have decreased breath sounds. HEART: Normal S1, S2. ABDOMINAL: Soft, nontender. ALLERGIES: THE PATIENT IS ALLERGIC TO PENICILLIN. LABORATORY DATA: Laboratory examination reveals the patient has a white count of 7.6, hemoglobin of 13, platelets of 174. The chemistries reveals a BUN of 23, creatinine of 1.1. Urinalysis is noted and toxicology is noted. Microbiology reveals the Raoultella and Staph aureus in the leg culture, and Raoultella is sensitive to quinolones and cefepime, piperacillin. It is sensitive to Bactrim. Resistant to ampicillin and cefazolin. The Staph aureus is sensitive to oxacillin, and relatively pansensitive Staph. The patient's EKG shows QTc of 604 and the patient's creatinine is 1. The patient's legs have greatly improved. ASSESSMENT AND PLAN: This is a 67-year-old male with left leg skin and skin structure infection with Raoultella and sensitive Staphylococcus with hypertension and chronic obstructive lung disease. The patient has a cellulitis, which has resolved. We will complete with p.o. Bactrim for 3 days. Jesús Bernabe MD
[2018-02-01 12:29] VITALS: BP 92/86
--- NOTE | 2018-02-01 13:19 | PN ---
DATE: 02/01/2018 SUBJECTIVE: A 67-year-old male seen at bedside for continued evaluation and management of bilateral lower leg ulcerations. The patient states he is set for discharge today and is resting comfortably. He has no complaints and states he is feeling much better and anxious to leave. PHYSICAL EXAMINATION: VITAL SIGNS: Revealed temperature of 97, pulse rate of 83, blood pressure of 102/70, respiratory rate of 20. EXTREMITIES: Palpable pedal pulses noted bilaterally. Capillary filling time is within normal limits bilaterally. Temperature gradient is cool to cool. There is noted to be +3 pitting lower extremity edema bilaterally. There is a full-thickness wound located on the left leg at the proximal anterior medial aspect of the leg and measures approximately 3 cm x 3 cm x 0.2 cm. Base of the wound is primarily granular with some fibrotic tissue. There is noted to be peripheral erythema and serous drainage only. There is no purulent drainage. There is no active bleeding. There is no abscess formation, and there is no malodor. There is a full-thickness right posterior ankle ulceration that measures approximately 1 cm x 1 cm x 0.1 cm, and the base of the ulcer is primarily fibrous with some granulation tissue. There is serous drainage minimally. There is no localized edema and erythema, and the wound does not probe to tendon or bone, and there is no abscess formation noted. Both lower legs present with brawny discoloration common with venous stasis disease. LABORATORY DATA: Reveal white count of 7.6, hemoglobin of 13.9, hematocrit of 43.9, platelet count of 174. Culture taken on the left leg reveals Staphylococcus aureus growth and planticola growth. 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 PLAN: Patient was examined and evaluated. Both wounds were cleansed with normal sterile saline and application of Bactroban, and a dry sterile dressing was applied to the posterior leg wound at the posterior ankle. The left leg ulceration was dressed with Bactroban ointment, Optifoam abdominal pad and Kerlix. The left leg was wrapped with an Eric wrap. We applied Eucerin to both lower extremities prior to dressing change. The patient is set for discharge today and will follow up [facility] Saturday or Saturday. He was told to wear the surgical shoes at all times to avoid increased friction on the back of his heel which would prevent wound healing to occur. Demarco Coyne DPM
== END 2018-02-01 14:04 | disposition home or self-care (01) | DRG 602 ==
LOC: ED 13:16 → ERH 15:36 → 2RNO 17:58
PROVIDERS: ADMIT Internal Medicine; ATTEND Hospitalist
DX: L03.116 Cellulitis of left lower limb (principal); I50.23 Acute on chronic systolic (congestive) heart failure; L97.929 Non-pressure chronic ulcer of unspecified part of left lower leg with unspecified severity; L97.319 Non-pressure chronic ulcer of right ankle with unspecified severity; I42.0 Dilated cardiomyopathy; E87.3 Alkalosis; I11.0 Hypertensive heart disease with heart failure; L03.115 Cellulitis of right lower limb; J44.9 Chronic obstructive pulmonary disease, unspecified; I48.2 Chronic atrial fibrillation; C61 Malignant neoplasm of prostate; I27.20 Pulmonary hypertension, unspecified; I73.9 Peripheral vascular disease, unspecified; I87.8 Other specified disorders of veins; H26.9 Unspecified cataract; A49.01 Methicillin susceptible Staphylococcus aureus infection, unspecified site; G47.30 Sleep apnea, unspecified; G89.29 Other chronic pain; Z96.651 Presence of right artificial knee joint; F10.10 Alcohol abuse, uncomplicated; Z86.14 Personal history of Methicillin resistant Staphylococcus aureus infection; Z95.810 Presence of automatic (implantable) cardiac defibrillator; Z79.01 Long term (current) use of anticoagulants; Z95.0 Presence of cardiac pacemaker; Z91.11 Patient's noncompliance with dietary regimen; Z88.0 Allergy status to penicillin

== ENCOUNTER 2018-02-07 19:51 | Inpatient (IN) | payer MEDICARE ==
[2018-02-07 19:51] VITALS: BMI 32.1
[2018-02-07] MEDS ORDERED: Propofol 10 mg/ml 1,000 MG/100 ML VIAL ONE (20:07)
[2018-02-07] MEDS: Propofol 10 mg/ml 1,000 MG/100 ML VIAL IV PRN (20:12)
[2018-02-07] MEDS ORDERED: Sodium Chloride 0.9% 1,000 ML IV STA (20:12)
--- NOTE | 2018-02-07 20:18 | ED PDOC ---
Arrival/HPI - General Time Seen by Provider: 02/07/18 20:02 Historian: Family, EMS - History of Present Illness Narrative History of Present Illness (Text): 02/07/18 20:03 67 year old male, with past medical history of hypertension, COPD, CHF , pacemaker, and atrial fibrillation on Eliquis, presents to the Emergency department via EMS s/p cardiac arrest prior to arrival. As per EMS, patient reportedly collapsed at home suddenly, unresponsive. EMS arrived 15-20 minutes after and initiated CPR immediately accompanied with 4 rounds of epinephrine and 1 round of bicarbonate, cardioverted vt and obtained rosc. Upon arrival to Emergency department, patient went into cardiac arrest again and appropriate protocol was initiated with immediate rosc sp epi and calicum As per family, patient was at baseline prior to the event with mild generalized weakness. Patient is currently in full code. HPI and ROS limited due to patient's unresponsiveness. PMD: Hedy Office Machine Embossograph Operator: Dr. 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 RIGHT LEG MORE SWOLLEN THAN LEFT WITH AN OPENED WOUND JUST BELOW KNEE BIG A QUARTER WITH SMOOTH EDGES.'LEFT LEG WITH DRY THICKENED FLUSHED TO RED COLORED SKIN. - Musculoskeletal/Rheumatological Hx Musculoskeletal Disorders: Yes Hx Degenerative Joint Disease: Yes Hx Falls: Yes (fell 11/29/17) Hx Unsteady Gait: Yes - Gastrointestinal Hx Gastrointestinal Disorders: No - Genitourinary/Gynecological Hx Prostate Problems: Yes (Seeds in prostate) - Psychiatric Hx Psychophysiologic Disorder: No Hx Substance Use: No - Surgical History Hx Joint Replacement: Yes (right knee left hip) - Anesthesia Hx Anesthesia Reactions: No - Suicidal Assessment Feels Threatened In Home Enviroment: No Family/Social History - Physician Review Nursing Documentation Reviewed: Yes Family/Social History: No Known Family HX Smoking Status: Never Smoked Hx Alcohol Use: Yes (DRINKS DAILY VODKA) Hx Substance Use: No Hx Substance Use Treatment: No Allergies/Home Meds Allergies/Adverse Reactions: Allergies Penicillins Allergy (Mild, Verified 01/28/18 19:26) ANAPHYLAXIS Home Medications: Home Meds Medication Instructions Recorded Confirmed Apixaban [Eliquis] 5 mg PO DAILY 12/12/17 01/28/18 Cholecalciferol [Vitamin D 1000 IU] 50,000 mg PO DAILY 12/12/17 01/28/18 oxyCODONE/Acetaminophen [Percocet 5 mg PO TID PRN 12/12/17 01/28/18 5/325 mg Tab] Carvedilol [Coreg] 25 mg PO BID 01/28/18 01/28/18 Valsartan [Diovan] 320 mg PO DAILY 01/28/18 01/28/18 Review of Systems - Review of Systems Systems not reviewed;Unavailable: Other (Unresponsiveness) Cardiovascular: Other (Cardiac arrest) Physical Exam Vital Signs Temp Pulse Resp BP Pulse Ox 02/07/18 21:50 70 17 93/56 L 100 02/07/18 21:30 70 17 78/57 L 100 02/07/18 21:17 96 F L 70 14 97/47 L 100 02/07/18 20:52 75 18 95/69 L 100 02/07/18 20:37 71 17 104/72 100 02/07/18 20:17 73 19 128/67 100 02/07/18 20:06 71 20 142/99 H 99 02/07/18 19:51 97.5 F L 50 L 22 90 L Temperature: Afebrile Blood Pressure: Hypotensive Pulse: Regular Respiratory Rate: Mechanically Ventilated Appearance: Positive for: Ill-Appearing, Other (intubated) Pain Distress: None Mental Status: Positive for: Comatose - Systems Exam Head: Present: Atraumatic, Normocephalic Pupils: Present: Other (fixed dilated) Extroacular Muscles: Present: EOMI Conjunctiva: Present: Normal Mouth: Present: Moist Mucous Membranes Neck: Present: Normal Range of Motion Respiratory/Chest: Present: Good Air Exchange, Rhonchi (right base). No: Respiratory Distress, Accessory Muscle Use Cardiovascular: Present: Regular Rate and Rhythm, Normal S1, S2. No: Murmurs Abdomen: No: Tenderness, Distention, Peritoneal Signs, Rebound, Guarding Back: Present: Normal Inspection Upper Extremity: Present: Normal Inspection. No: Cyanosis, Edema Lower Extremity: Present: Normal Inspection. No: Edema Neurological: Present: GCS=15, CN II-XII Intact, Other (intubated, no w/d to pain ) Skin: Present: Warm, Dry, Normal Color. No: Rashes Psychiatric: Present: Normal Insight, Normal Concentration Medical Decision Making ED Course and Treatment: 02/07/18 20:03 Impression: 67 year old male presents to the Emergency department s/p cardiac arrest. will look for underlying etiology Differential Diagnosis included but are not limited to: cardiac arrest Plan: -- ABG -- VBG -- CT of Head -- EKG -- Labs -- Chest X-ray -- Blood Culture -- Urine Culture -- Urinalysis -- Reassess and disposition Prior Visits: Notes and results from previous visits were reviewed. Patient was last seen in the emergency department on 01/28/18 for cellulites. Patient was admitted. Progress Notes: 02/07/18 20:15 EKG pacemaker rhythm at 119, discordant elevation noted. Abnormal EKG. Interpreted by me. CXR Impression: As read by me, right sided opacity 02/07/18 20:[address] Jain given discordant depressions on ekg, who is aware and agrees with Emergency department management plan to not activate code heart at this time given current status of patient. ?wayne treviño given. 02/07/18 20:55 CODE SEPSIS ACTIVATED. 02/07/18 21:00 PROCEDURE: CENTRAL LINE PLACEMENT Performed by the Apartment Leasing Specialist John Time: 21:00 Consent: Discussion of the risks, benefits, and alternatives to the procedure, along with informed consent of family was precluded by the urgency of the procedure and the patient condition. Timeout: A timeout to verify the correct patient, procedure, and site was performed. Indication: Hypotension Anesthesia: Local anesthesia: See MAR for details. Skin Preparation: Hand hygiene performed prior to central venous catheter insertion. Sterile field, sterile drape, sterile technique, and cap and gown were used. The area was cleansed with 2% Chlorhexidine. Patient position: Supine Location: Right IJ Ultrasound guidance: {YES} Technique: The landmarks for the line placement were identified. The vessel was cannulated and a non-tunneled 7.0 Fr triple lumen was placed using the Seldinger technique. Successful placement: {YES} . Line sutured with silk and appropriate dressing applied. Assessment: Good patency and blood return through all three lumens. The ports were appropriately flushed. See post procedure X-Ray interpretation. Post-procedure: Patient tolerated the procedure well with no immediate complications. 02/07/18 21:[address] Lala who is aware and agrees with the plan. Accepts patient into her service. Discussed cause with ICU Dr. Joseph. will not start therapeutic hypothermia as bleeding has not been excluded at this time.. EXAM: CT Head Without Intravenous Contrast Dictated and Authenticated by: Sánchez Garcia MD 02/07/2018 11:02 PM IMPRESSION: No acute intracranial abnormality. 02/08/18 01:28 accepted icu. 02/08/18 01:30 - Critical Care Critical Care Minutes: 60 minutes - Lab Interpretations Microbiology Results: Microbiology Results 02/07/18 20:40 Blood Blood Culture - Final NO GROWTH AFTER 5 DAYS 02/07/18 20:20 Blood Blood Culture - Final NO GROWTH AFTER 5 DAYS 02/07/18 20:20 Blood Gram Stain - Final TEST NOT PERFORMED 02/07/18 20:39 Urine Urine Culture - Final No Growth (<1,000 CFU/ML) Lab Results: 02/07/18 20:39 02/07/18 20:39 Lab Results 02/07/18 20:44: pO2 49, VBG pH 7.08 L*, VBG pCO2 88.0 H*, VBG HCO3 26.1, VBG Total CO2 28.8 H, VBG O2 Sat (Calc) 73.4 H, VBG Base Excess -6.0 L, VBG Potassium 4.8, Glucose 124 H, Lactate 10.2 H*, FiO2 21.0, Sodium 127.0 L, Chloride 87.0 L, Venous Blood Potassium 4.8 02/07/18 20:39: Alcohol, Quantitative < 10 02/07/18 20:39: Salicylates < 1 L, Acetaminophen < 10.0 L 02/07/18 20:39: Sodium 129 L, Potassium 5.0, Chloride 87 L, Carbon Dioxide 21, Anion Gap 25 H, BUN 23 H, Creatinine 1.8 H, Est GFR ( Amer) 46, Est GFR ( Non-Af Amer) 38, Random Glucose 107, Calcium 8.9, Magnesium 2.5 H, Total Bilirubin 1.5 H, AST 64 H D, ALT 33, Alkaline Phosphatase 125, Lactate Dehydrogenase 870 H, Total Creatine Kinase 160, Troponin I 0.19 H* D, NT-Pro-B Natriuret Pep 55150 H, Total Protein 6.9, Albumin 3.8, Globulin 3.0, Albumin/ Globulin Ratio 1.3, Lipase 133 02/07/18 20:39: Urine Color Yellow, Urine Appearance Clear, Urine pH 6.0, Ur Specific [place] 1.025, Urine Protein Trace H, Urine Glucose (UA) Negative, Urine Ketones Negative, Urine Blood Negative, Urine Nitrate Negative, Urine Bilirubin Negative, Urine Urobilinogen 1.0 H, Ur Leukocyte Esterase Negative, Urine RBC 0 - 2, Urine WBC Negative, Ur Epithelial Cells None 02/07/18 20:39: PT 22.0 H, INR 1.90 H, APTT 32.4 02/07/18 20:39: WBC 9.5 D, RBC 4.50, Hgb 13.9 L, Hct 42.9, MCV 95.3, MCH 30.9, MCHC 32.4, RDW 17.6 H, Plt Count 139, MPV 10.3, Gran % 71.3 H, Lymph % (Auto) 23.3, Mccormick % (Auto) 4.6, Eos % (Auto) 0.6 L, Baso % (Auto) 0.2, Gran # 6.79 H, Lymph # (Auto) 2.2, Mccormick # (Auto) 0.4, Eos # (Auto) 0.1, Baso # (Auto) 0.02 02/07/18 20:10: Urine Opiates Screen Negative, Urine Methadone Screen Negative, Ur Barbiturates Screen Negative, Ur Phencyclidine Scrn Negative, Ur Amphetamines Screen Negative, U Benzodiazepines Scrn Negative, U Oth Cocaine Metabols Negative, U Cannabinoids Screen Negative - RAD Interpretation Radiology Orders: 02/07/18 20:03 CHEST PORTABLE [RAD] Stat 02/07/18 20:07 HEAD W/O CONTRAST [CT] Stat 02/07/18 21:02 CXR [CHEST PORTABLE] [RAD] Stat - EKG Interpretation Interpreted by ED Physician: Yes Type: 12 lead EKG - Medication Orders Current Medication Orders: Artificial Tears (Artificial Tears Opht Oint) 0 gm OU Q6 [facility] Last Admin: 02/14/18 18:51 Dose: 1 applic Doxycycline Hyclate (Doryx) 100 mg NG Q12 KELLY PRN Reason: Protocol Last Admin: 02/14/18 22:07 Dose: 100 mg Hydrocortisone Sodium Succinate (Solu-Cortef) 25 mg IVP Q8 [facility] Last Admin: 02/14/18 22:08 Dose: 25 mg IVP Administration Document 02/14/18 22:08 [facility] (Rec: 02/14/18 22:08 [facility]-MLITINSKI) Charges for Administration # of IVP Administrations 1 Propofol (Diprivan) 1,000 mg in 100 mls @ 3 mls/hr IV .Q24H PRN; Protocol; 5 MCG/KG/MIN PRN Reason: TITRATE PER MD ORDER Last Titration: 02/14/18 08:35 Dose: 10 mcg/kg/min, 6 mls/hr Dave Agitation Sedation Document 02/14/18 08:35 JFG (Rec: 02/14/18 08:35 [id number]) Dave Agitation Sedation Scale Dave Agitation Sedation Scale Score -1 Drowsy: Not fully alert, sustained awakening (>10 sec) to voice Titration Intervention Document 02/14/18 08:35 G (Rec: 02/14/18 08:35 [id number]) Titration Intake Titration Intake 0 Cumulative Intake 90 Cumulative Intake (Rx) 1,090 Waste Amount 0 Container Volume 10 Titration Dosing Titration Dose 10 IV Rate 6 Intake/Decrease Increased Cumulative Dose 51148 Vasopressin 20 units/ Sodium (Chloride) 101 mls @ 9.09 mls/hr IV .Q11H7M KELLY; 0.03 U/MIN PRN Reason: Protocol Last Admin: 02/14/18 13:28 Dose: Midazolam 100 mg/100ml in NS (Midazolam 100 Mg/100ml In Ns) 100 mg in 100 mls @ 1 mls/hr IV .Q24H PRN; Protocol; 1 MG/HR PRN Reason: Agitation Last Titration: 02/12/18 14:04 Dose: 3 mg/hr, 3 mls/hr Dave Agitation Sedation Document 02/12/18 14:04 MMA (Rec: 02/12/18 14:05 MMA [id number]) Dave Agitation Sedation Scale Dave Agitation Sedation Scale Score -2 Light Sedation: briefly awakens with eye contact to voice (<10 sec) Titration Intervention Document 02/12/18 14:04 MMA (Rec: 02/12/18 14:05 MMA [id number]) Titration Intake Titration Intake 0 Cumulative Intake 47 Cumulative Intake (Rx) 147 Waste Amount 0 Container Volume 53 Titration Dosing Titration Dose 3 IV Rate 3 Intake/Decrease Resumed Cumulative Dose 147 Levetiracetam 1,500 mg/ Sodium (Chloride) 115 mls @ 460 mls/hr IV Q12H KELLY Last Admin: 02/14/18 18:32 Dose: 460 mls/hr eMAR Start Stop Document 02/14/18 18:32 JFG (Rec: 02/14/18 18:33 [facility]-[id number]) Intravenous Solution Start Date 02/14/18 Start Time 18:32 End Date 02/14/18 End time 18:47 Total Infusion Time 15 Aztreonam (Azactam 1 Gm) 100 mls @ 100 mls/hr IVPB Q8 KELLY PRN Reason: Protocol Stop: 02/17/18 11:31 Last Admin: 02/14/18 22:00 Dose: 100 mls/hr eMAR Start Stop Document 02/14/18 22:00 A (Rec: 02/14/18 22:01 [facility]ML[facility]) Intravenous Solution Start Date 02/21/18 Start Time 22:01 End Date 02/14/18 End time 23:01 Total Infusion Time -48877 Dextrose/Sodium Chloride (Dextrose 5%/0.9% Ns 1000 Ml) 1,000 mls @ 50 mls/hr IV .Q20H KELLY Last Admin: 02/14/18 18:35 Dose: 50 mls/hr eMAR Start Stop Document 02/14/18 18:35 MONISHAG (Rec: 02/14/18 18:35 [facility]-[id number]) Intravenous Solution Start Date 02/14/18 Start Time 18:35 End Date 02/15/18 Phenytoin 200 mg/ Sodium (Chloride) 54 mls @ 104 mls/hr IVPB Q12 KELLY Last Admin: 02/14/18 22:05 Dose: 104 mls/hr eMAR Start Stop Document 02/14/18 22:05 A (Rec: 02/14/18 22:06 [facility] Intravenous Solution Start Date 02/14/18 Start Time 22:05 End Date 02/14/18 End time 22:37 Total Infusion Time 32 Valproate Sodium 1,500 mg/ (Sodium Chloride) 115 mls @ 92 mls/hr IVPB Q12 KELLY Last Admin: 02/14/18 22:04 Dose: 92 mls/hr eMAR Start Stop Document 02/14/18 22:04 [facility] (Rec: 02/14/18 22:05 [facility] Intravenous Solution Start Date 02/14/18 Start Time 22:04 End Date 02/14/18 End time 23:19 Total Infusion Time 75 Norepinephrine Bitartrate 8 mg (/ Sodium Chloride) 500 mls @ 15 mls/hr IV .Q24H PRN; Protocol; 4 MCG/MIN PRN Reason: TITRATE PER MD ORDER Last Titration: 02/14/18 14:34 Dose: 10 mcg/min, 37.5 mls/hr Titration Intervention Document 02/14/18 14:34 MONISHA (Rec: 02/14/18 16:18 MONISHA [id number]) Titration Intake Titration Intake 10 Cumulative Intake 30 Cumulative Intake (Rx) 30 Waste Amount 0 Container Volume 470 Titration Dosing Titration Dose 10 IV Rate 37.5 Intake/Decrease Increased Cumulative Dose 0.48 Linezolid (Zyvox) 600 mg PO Q12 KELLY PRN Reason: Protocol Last Admin: 02/14/18 22:09 Dose: 600 mg Pantoprazole Sodium (Protonix Inj) 40 mg IVP Q12 [facility] Last Admin: 02/14/18 22:08 Dose: 40 mg IVP Administration Document 02/14/18 22:08 A (Rec: 02/14/18 22:08 [facility] Charges for Administration # of IVP Administrations 1 Phenobarbital (Phenobarbital Inj) 50 mg IV Q6 [facility] Last Admin: 02/14/18 18:35 Dose: 50 mg eMAR Start Stop Document 02/14/18 18:35 [facility] (Rec: 02/14/18 18:35 [facility] Intravenous Solution Start Date 02/14/18 Start Time 18:35 End Date 02/14/18 Behavioural Document 02/14/18 18:35 [facility] (Rec: 02/14/18 18:35 [facility] Maintenance Maintenance Dose Yes Behavior Behavior for Medication: Continuous pacing/restlessness Discontinued Medications Cisatracurium Besylate (Nimbex) 15.6 mg 0.15 mg/kg (15.6 mg) IV ONCE ONE Stop: 02/08/18 12:08 Last Admin: 02/08/18 13:24 Dose: 15.6 mg eMAR Start Stop Document 02/08/18 13:24 FM (Rec: 02/08/18 13:25 [facility] Intravenous Solution Start Date 02/08/18 Start Time 13:25 Heparin Sodium (Porcine) (Heparin) 5,000 units SC Q12 [facility] PRN Reason: Protocol Last Admin: 02/11/18 21:45 Dose: Subcutaneous Administrations Document 02/11/18 21:45 DL (Rec: 02/11/18 21:45 DL [facility]CONT[facility] STR[facility]GIST) Charges for Administration # of Subcutaneous Administrations 0 Hydrocortisone Sodium Succinate (Solu-Cortef) 50 mg IVP Q8 KELLY Last Admin: 02/14/18 13:31 Dose: 50 mg IVP Administration Document 02/14/18 13:31 [facility] (Rec: 02/14/18 13:31 [facility] Charges for Administration # of IVP Administrations 1 Sodium Chloride (Sodium Chloride 0.9%) 1,000 mls @ 999 mls/hr IV .Q1H1M STA Stop: 02/07/18 21:12 Last Admin: 02/07/18 20:25 Dose: 999 mls/hr eMAR Start Stop Document 02/07/18 20:25 RD (Rec: 02/07/18 21:22 RD [id number]) Intravenous Solution Start Date 02/07/18 Start Time 20:25 End Date 02/07/18 End time 21:25 Total Infusion Time 60 Ciprofloxacin (Cipro 400mg/200ml Dsw) 400 mg in 200 mls @ 133.3 mls/hr IVPB STAT STA PRN Reason: Protocol Stop: 02/07/18 21:50 Last Admin: 02/07/18 22:10 Dose: 133.3 mls/hr eMAR Start Stop Document 02/07/18 22:10 RD (Rec: 02/07/18 22:41 RD [id number]) Intravenous Solution Start Date 02/07/18 Start Time 22:10 End Date 02/07/18 End time 23:41 Total Infusion Time 91 Metronidazole (Flagyl) 500 mg in 100 mls @ 100 mls/hr IVPB STAT STA PRN Reason: Protocol Stop: 02/07/18 21:19 Last Admin: 02/07/18 21:00 Dose: 100 mls/hr eMAR Start Stop Document 02/07/18 21:00 RD (Rec: 02/07/18 21:20 RD [id number]) Intravenous Solution Start Date 02/07/18 Start Time 21:00 End Date 02/07/18 End time 22:00 Total Infusion Time 60 Vancomycin HCl (Vancomycin 1gm) 1 gm in 250 mls @ 167 mls/hr IVPB STAT STA PRN Reason: Protocol Stop: 02/07/18 21:49 Last Admin: 02/07/18 22:15 Dose: 167 mls/hr eMAR Start Stop Document 02/07/18 22:15 RD (Rec: 02/07/18 22:42 RD [id number]) Intravenous Solution Start Date 02/07/18 Start Time 22:15 End Date 02/07/18 End time 23:45 Total Infusion Time 90 Sodium Chloride (Sodium Chloride 0.9%) 500 mls @ 999 mls/hr IV .Q31M STA Stop: 02/07/18 21:39 Last Admin: 02/07/18 19:55 Dose: 999 mls/hr eMAR Start Stop Document 02/07/18 19:55 RD (Rec: 02/07/18 21:21 RD [id number]) Intravenous Solution Start Date 02/07/18 Start Time 19:55 End Date 02/07/18 End time 20:25 Total Infusion Time 30 NOREPINEPHRINE BIT/0.9 % NACL (Levophed 4 Mg/ 250 Ml Ns Premixed) 4 mg in 250 mls @ 15 mls/hr IV .[id number] PRN; Protocol; 4 MCG/MIN PRN Reason: TITRATE PER MD ORDER Last Titration: 02/14/18 07:25 Dose: 8 mcg/min, 30 mls/hr Titration Intervention Document 02/14/18 07:25 [email or web address] (Rec: 02/14/18 09:26 JFG [id number]) Titration Intake Titration Intake 0 Cumulative Intake 200 Cumulative Intake (Rx) 6,200 Waste Amount 0 Container Volume 50 Titration Dosing Titration Dose 8 IV Rate 30 Intake/Decrease Decreased Cumulative Dose 99.2 Sodium Chloride (Sodium Chloride 0.9%) 1,000 mls @ 140 mls/hr IV .Q7H9M KELLY Last Admin: 02/09/18 06:09 Dose: 140 mls/hr eMAR Start Stop Document 02/09/18 06:09 KGD (Rec: 02/09/18 06:09 KGD [facility]) Intravenous Solution Start Date 02/09/18 Start Time 06:09 Meropenem 500 mg/ Sodium (Chloride) 50 mls @ 100 mls/hr IVPB Q12 KELLY PRN Reason: Protocol Stop: 02/17/18 10:01 Last Admin: 02/10/18 09:17 Dose: 100 mls/hr eMAR Start Stop Document 02/10/18 09:17 AE (Rec: 02/10/18 09:18 AE [facility]) Intravenous Solution Start Date 02/10/18 Start Time 09:17 End Date 02/10/18 End time 09:47 Total Infusion Time 30 Linezolid (Zyvox 600mg/300ml D5w) 600 mg in 300 mls @ 200 mls/hr IVPB Q12 KELLY PRN Reason: Protocol Stop: 02/08/18 11:29 Last Admin: 02/08/18 09:37 Dose: 200 mls/hr eMAR Start Stop Document 02/08/18 09:37 FM (Rec: 02/08/18 09:38 FM [facility]) Intravenous Solution Start Date 02/08/18 Start Time 09:37 End Date 02/08/18 End time 11:07 Total Infusion Time 90 Acetaminophen (Ofirmev) 1,000 mg in 100 mls @ 400 mls/hr IVPB Q6H PRN PRN Reason: Rigors Stop: 02/10/18 08:04 Last Admin: 02/09/18 11:09 Dose: 400 mls/hr eMAR Start Stop Document 02/09/18 11:09 FM (Rec: 02/09/18 11:10 FM [facility]) Intravenous Solution Start Date 02/09/18 Start Time 11:10 End Date 02/09/18 End time 11:25 Total Infusion Time 15 NOV Pain Assessment Document 02/09/18 11:09 FM (Rec: 02/09/18 11:10 FM [facility]) Pain Reassessment Is this a pain reassessment? No Re-Assess: [facility] Pain Assessment Document 02/09/18 12:09 FM (Rec: 02/09/18 12:32 FM [facility]-CONT[facility] STRATEGIST) Pain Reassessment Is this a pain reassessment? No Fentanyl Citrate (Fentanyl Citrate/Sodium Chloride 1 Mg/100 Ml) 1,000 mcg in 100 mls @ 2 mls/hr IV .Q24H PRN; Protocol; 20 MCG/HR PRN Reason: TITRATE PER MD ORDER Last Titration: 02/09/18 19:00 Dose: 0 mcg/hr, 0 mls/hr Dave Agitation Sedation Document 02/09/18 19:00 KGD (Rec: 02/10/18 01:06 KGD TRAINPC-FIX) Dave Agitation Sedation Scale Dave Agitation Sedation Scale Score +1 Restless Anxious bu movements not aggressive vigorous Titration Intervention Document 02/09/18 19:00 KGD (Rec: 02/10/18 01:06 KGD TRAINPC-FIX) Titration Intake Titration Intake 37 Cumulative Intake 100 Cumulative Intake (Rx) 100 Waste Amount 0 Container Volume 0 Titration Dosing Titration Dose 0 IV Rate 0 Intake/Decrease Infused Cumulative Dose 1000 Cisatracurium Besylate 200 mg/ (Sodium Chloride) 250 mls @ 7.79 mls/hr IV .Q24H PRN; Protocol; 1 MCG/KG/MIN PRN Reason: TITRATE PER MD ORDER Last Titration: 02/09/18 20:44 Dose: 0 mcg/kg/min, 0 mls/hr Train of Four (TOF) Document 02/09/18 20:44 KGD (Rec: 02/09/18 20:45 KGD [facility] STR[facility]GIST) Number of twitches: 4 of 4 Titration Intervention Document 02/09/18 20:44 KGD (Rec: 02/09/18 20:45 KGD [facility]) Titration Intake Titration Intake 217 Cumulative Intake 250 Cumulative Intake (Rx) 250 Waste Amount 0 Container Volume 0 Titration Dosing Titration Dose 0 IV Rate 0 Intake/Decrease Infused Cumulative Dose 200 Levetiracetam 1,000 mg/ Sodium (Chloride) 110 mls @ 440 mls/hr IV STAT STA Stop: 02/08/18 18:07 Last Admin: 02/08/18 18:32 Dose: 440 mls/hr eMAR Start Stop Document 02/08/18 18:32 FM (Rec: 02/08/18 18:33 FM [facility]) Intravenous Solution Start Date 02/08/18 Start Time 18:32 End Date 02/08/18 End time 18:47 Total Infusion Time 15 Levetiracetam (Keppra 500mg Ivpb) 500 mg in 100 mls @ 400 mls/hr IVPB 0600, 1800 KELLY Last Admin: 02/09/18 05:42 Dose: 400 mls/hr eMAR Start Stop Document 02/09/18 05:42 KGD (Rec: 02/09/18 05:42 KGD [facility]) Intravenous Solution Start Date 02/09/18 Start Time 05:42 Levetiracetam 1,000 mg/ Sodium (Chloride) 110 mls @ 460 mls/hr IV Q12H KELLY Last Admin: 02/10/18 06:13 Dose: 460 mls/hr eMAR Start Stop Document 02/10/18 06:13 KGD (Rec: 02/10/18 06:13 KGD [facility]) Intravenous Solution Start Date 02/10/18 Start Time 06:13 Levetiracetam (Keppra 500mg Ivpb) 500 mg in 100 mls @ 400 mls/hr IVPB STAT STA Stop: 02/09/18 06:10 Last Admin: 02/09/18 06:08 Dose: 400 mls/hr eMAR Start Stop Document 02/09/18 06:08 KGD (Rec: 02/09/18 06:08 KGD [facility]) Intravenous Solution Start Date 02/09/18 Start Time 06:08 Linezolid (Zyvox 600mg/300ml D5w) 600 mg in 300 mls @ 200 mls/hr IVPB Q12 KELLY PRN Reason: Protocol Stop: 02/18/18 10:01 Last Admin: 02/14/18 09:39 Dose: 200 mls/hr eMAR Start Stop Document 02/14/18 09:39 JFG (Rec: 02/14/18 09:40 JFG [id number]) Intravenous Solution Start Date 02/14/18 Start Time 10:39 End Date 02/14/18 End time 12:09 Total Infusion Time 90 Sodium Chloride (Sodium Chloride 0.9%) 1,000 mls @ 999 mls/hr IV .Q1H1M STA Stop: 02/09/18 12:18 Last Admin: 02/09/18 11:35 Dose: 999 mls/hr eMAR Start Stop Document 02/09/18 11:35 FM (Rec: 02/09/18 12:43 FM [facility]ENT STRATEGIST) Intravenous Solution Start Date 02/09/18 Start Time 11:35 End Date 02/09/18 End time 12:35 Total Infusion Time 60 Dextrose/Sodium Chloride (Dextrose 5%/0.9% Ns 1000 Ml) 1,000 mls @ 140 mls/hr IV .Q7H9M [facility] Last Admin: 02/10/18 20:00 Dose: 140 mls/hr eMAR Start Stop Document 02/10/18 20:00 MPD (Rec: 02/10/18 22:00 MPD [id number]) Intravenous Solution Start Date 02/10/18 Start Time 20:00 Valproate Sodium 1,500 mg/ (Sodium Chloride) 115 mls @ 100 mls/hr IVPB ONCE ONE Stop: 02/09/18 15:08 Last Admin: 02/09/18 13:47 Dose: 100 mls/hr eMAR Start Stop Document 02/09/18 13:47 FM (Rec: 02/09/18 13:47 FM [facility]) Intravenous Solution Start Date 02/09/18 Start Time 13:47 End Date 02/09/18 Magnesium Sulfate/Dextrose (Magnesium Sulfate 1 Gm/100 Ml D5w) 1 gm in 100 mls @ 100 mls/hr IVPB ONCE ONE Stop: 02/09/18 14:33 Last Admin: 02/09/18 14:08 Dose: 100 mls/hr eMAR Start Stop Document 02/09/18 14:08 FM (Rec: 02/09/18 14:09 FM [facility]) Intravenous Solution Start Date 02/09/18 Start Time 14:09 End Date 02/09/18 Sodium Chloride (Sodium Chloride 0.9%) 300 mls @ 999 mls/hr IV .Q19M STA Stop: 02/09/18 15:06 Last Admin: 02/09/18 15:02 Dose: 999 mls/hr eMAR Start Stop Document 02/09/18 15:02 FM (Rec: 02/09/18 15:02 FM [facility]) Intravenous Solution Start Date 02/09/18 Start Time 15:02 End Date 02/09/18 Valproate Sodium 1,000 mg/ (Sodium Chloride) 110 mls @ 100 mls/hr IVPB Q12 KELLY Last Admin: 02/12/18 21:57 Dose: 100 mls/hr eMAR Start Stop Document 02/12/18 21:57 KGD (Rec: 02/12/18 21:57 KGD [facility]) Intravenous Solution Start Date 02/12/18 Start Time 21:57 Valproate Sodium 500 mg/ (Sodium Chloride) 105 mls @ 100 mls/hr IVPB ONCE ONE Stop: 02/10/18 11:02 Last Admin: 02/10/18 15:56 Dose: 100 mls/hr eMAR Start Stop Document 02/10/18 15:56 AE (Rec: 02/10/18 15:56 AE [facility]) Intravenous Solution Start Date 02/10/18 Start Time 15:56 End Date 02/10/18 End time 16:56 Total Infusion Time 60 Levetiracetam 500 mg/ Sodium (Chloride) 105 mls @ 460 mls/hr IV ONCE ONE Stop: 02/10/18 10:13 Last Admin: 02/10/18 11:52 Dose: 460 mls/hr eMAR Start Stop Document 02/10/18 11:52 AE (Rec: 02/10/18 11:52 AE [facility]) Intravenous Solution Start Date 02/10/18 Start Time 11:52 End Date 02/10/18 End time 12:50 Total Infusion Time 58 Levetiracetam 1,500 mg/ Sodium (Chloride) 115 mls @ 460 mls/hr IV Q12H KELLY Last Admin: 02/10/18 11:10 Dose: Doxycycline Hyclate 100 mg/ (Sodium Chloride) 100 mls @ 100 mls/hr IVPB Q12 KELLY PRN Reason: Protocol Last Admin: 02/14/18 09:39 Dose: 100 mls/hr eMAR Start Stop Document 02/14/18 09:39 JFG (Rec: 02/14/18 09:39 JFG [id number]) Intravenous Solution Start Date 02/14/18 Start Time 09:39 End Date 02/14/18 End time 10:39 Total Infusion Time 60 Potassium Chloride (Potassium Chloride 20 Meq/100 Ml) 20 meq in 100 mls @ 50 mls/hr IVPB ONCE ONE Stop: 02/10/18 13:45 Last Admin: 02/10/18 12:14 Dose: 50 mls/hr eMAR Start Stop Document 02/10/18 12:14 AE (Rec: 02/10/18 12:14 AE [facility]) Intravenous Solution Start Date 02/10/18 Start Time 12:14 End Date 02/10/18 End time 14:14 Total Infusion Time 120 Phenobarbital 1,000 mg/ Sodium (Chloride) 107.6923 mls @ 215.385 mls/hr IVPB ONCE ONE Stop: 02/10/18 14:14 Last Admin: 02/10/18 15:53 Dose: 215.385 mls/hr eMAR Start Stop Document 02/10/18 15:53 AE (Rec: 02/10/18 15:54 AE [facility]) Intravenous Solution Start Date 02/10/18 Start Time 15:53 End Date 02/10/18 End time 16:53 Total Infusion Time 60 Behavioural Document 02/10/18 15:53 AE (Rec: 02/10/18 15:54 AE [facility]) Maintenance Maintenance Dose No Nonmedicinal Nonmedicinal Interventions See nurse's notes Behavior Behavior for Medication: Anxiety Behavior Comment seizure activity Re-Assess: Reassess Psych Meds Document 02/10/18 16:23 AE (Rec: 02/11/18 07:26 AE [facility]) Reassess Psych Med Effective Pantoprazole Sodium (Protonix 40mg Ivpb) 40 mg in 100 mls @ 20 mls/hr IVPB .Q5H KELLY Last Admin: 02/14/18 10:00 Dose: 20 mls/hr eMAR Start Stop Document 02/14/18 10:00 JFG (Rec: 02/14/18 10:23 JFG [id number]) Intravenous Solution Start Date 02/14/18 Start Time 10:00 End Date 02/14/18 End time 15:00 Total Infusion Time 300 Potassium Chloride (Potassium Chloride 20 Meq/100 Ml) 20 meq in 100 mls @ 50 mls/hr IVPB Q2H KELLY Stop: 02/12/18 13:29 Last Admin: 02/12/18 11:56 Dose: Phenytoin 1,000 mg/ Sodium (Chloride) 250 mls @ 300 mls/hr IVPB STAT STA Stop: 02/13/18 04:39 Last Admin: 02/13/18 04:00 Dose: 300 mls/hr eMAR Start Stop Document 02/13/18 04:00 KGD (Rec: 02/13/18 05:40 KGD [id number]) Intravenous Solution Start Date 02/13/18 Start Time 05:40 Potassium Chloride (Potassium Chloride 20 Meq/100 Ml) 100 mls @ 50 mls/hr IV Q2H KELLY Stop: 02/13/18 12:44 Last Admin: 02/13/18 10:55 Dose: 50 mls/hr eMAR Start Stop Document 02/13/18 10:55 JOSEP (Rec: 02/13/18 14:56 JOSEP [id number]) Intravenous Solution Start Date 02/13/18 Start Time 14:56 End Date 02/13/18 End time 15:50 Total Infusion Time 54 Norepinephrine Bitartrate 8 mg (/ Sodium Chloride) 508 mls @ 15.24 mls/hr IV .Q24H PRN; Protocol; 4 MCG/MIN PRN Reason: TITRATE PER MD ORDER Lorazepam (Ativan) 2 mg IVP ONCE ONE PRN Reason: Protocol Stop: 02/07/18 21:18 Last Admin: 02/07/18 20:10 Dose: 2 mg IVP Administration Document 02/07/18 20:10 RD (Rec: 02/07/18 21:38 RD [id number]) Charges for Administration # of IVP Administrations 1 Lorazepam (Ativan) 2 mg IVP ONCE ONE PRN Reason: Protocol Stop: 02/09/18 04:47 Last Admin: 02/09/18 05:40 Dose: 2 mg IVP Administration Document 02/09/18 05:40 KGD (Rec: 02/09/18 05:41 KGD [facility]) Charges for Administration # of IVP Administrations 1 Behavioural Document 02/09/18 05:40 KGD (Rec: 02/09/18 05:41 KGD [facility]) Maintenance Maintenance Dose No Nonmedicinal Nonmedicinal Interventions Redirect Behavior Behavior for Medication: Anxiety Re-Assess: Reassess Psych Meds Document 02/09/18 06:10 KGD (Rec: 02/09/18 06:12 KGD [facility]) Reassess Psych Med Effective Lorazepam (Ativan) 2 mg IVP STAT STA PRN Reason: Protocol Stop: 02/09/18 22:12 Last Admin: 02/09/18 22:15 Dose: 2 mg IVP Administration Document 02/09/18 22:15 KGD (Rec: 02/10/18 01:05 KGD [id number]) Charges for Administration # of IVP Administrations 1 Behavioural Document 02/09/18 22:15 KGD (Rec: 02/10/18 01:05 KGD [id number]) Maintenance Maintenance Dose No Nonmedicinal Nonmedicinal Interventions Activity Comment Seizures Behavior Behavior for Medication: Anxiety Midazolam HCl (Versed Inj) 4 mg IVP ONCE ONE Stop: 02/09/18 11:13 Last Admin: 02/09/18 11:31 Dose: 4 mg IVP Administration Document 02/09/18 11:31 FM (Rec: 02/09/18 11:32 FM [facility]) Charges for Administration # of IVP Administrations 1 - Scribe Statement The provider has reviewed the documentation as recorded by the Scribe Zarina Rod. All medical record entries made by the Scribe were at my direction and personally dictated by me. I have reviewed the chart and agree that the record accurately reflects my personal performance of the history, physical exam, medical decision making, and the department course for this patient. I have also personally directed, reviewed, and agree with the discharge instructions and disposition. Disposition/Present on Arrival - Present on Arrival Any Indicators Present on Arrival: No History of DVT/PE: No History of Uncontrolled Diabetes: No Urinary Catheter: No History Surgical Site Infection Following: None - Disposition Have Diagnosis and Disposition been Completed?: Yes Diagnosis: Cardiac arrest, Heart attack Disposition: HOSPITALIZED Disposition Time: 01:00 Patient Problems: Current Active Problems Problem Status Onset Anoxic brain injury Acute Cardiac arrest Acute Heart attack Acute Condition: CRITICAL
[2018-02-07] MEDS ORDERED: Ciprofloxacin 400mg/200ml D5W 400 MG/200 ML BAG IVPB STA (20:20)
[2018-02-07] MEDS ORDERED: Vancomycin 1gm in NS 250ml 1 GM/250 ML BAG IVPB STA (20:20)
[2018-02-07] MEDS ORDERED: metroNIDAZOLE IV 500 mg/100 ml 500 MG/100 ML BAG IVPB STA (20:20)
[2018-02-07 20:46] LABS: BASO # 0.02 K/mm3 (0.0-2.0); BASO % 0.2 % (0.0-3.0); EOS # 0.1 (0.0-0.7); EOS % 0.6 % (1.5-5.0); GRAN # 6.79 (1.4-6.5); GRAN % 71.3 % (50.0-68.0); HEMOGLOBIN 13.9 g/dL (14.0-18.0); LYMPH # 2.2 (1.2-3.4); LYMPH % 23.3 % (22.0-35.0); MEAN CELL VOLUME 95.3 fl (80.0-105.0); MEAN CORPUSCULAR HEMOGLOBIN 30.9 pg (25.0-35.0); MEAN CORPUSCULAR HGB CONC 32.4 g/dl (31.0-37.0); MEAN PLATELET VOLUME 10.3 fl (7.0-11.0); MONO # 0.4 (0.1-0.6); MONO % 4.6 % (1.0-6.0); RBC 4.5 10^6/uL (3.5-6.1); RED CELL DISTRIBUTION WIDTH 17.6 % (11.5-14.5); URINE BILIRUBIN NEGATIVE (NEGATIVE); URINE BLOOD NEGATIVE (NEGATIVE); URINE GLUCOSE (UA) NEGATIVE (NEGATIVE); URINE LEUKOCYTE ESTERASE NEGATIVE Leu/uL (NEGATIVE); URINE PROTEIN TRACE mg/dL (<30 mg/dL); WHITE BLOOD COUNT 9.5 10^3/ul (4.5-11.0)
[2018-02-07 20:47] LABS: URINE APPEARANCE CLEAR (CLEAR); URINE COLOR YELLOW (YELLOW)
[2018-02-07 20:51] LABS: VENOUS BLOOD GAS PO2 49 mm/Hg (30-55)
[2018-02-07 20:54] LABS: VENOUS BLOOD PH 7.08 (7.32-7.43)
[2018-02-07 20:57] LABS: ACETAMINOPHEN < 10.0 ug/ml (10.0-20.0); SALICYLATE < 1 mg/dL (2.0-20.0)
[2018-02-07 20:58] LABS: INR 1.9 (0.93-1.08); PARTIAL THROMBOPLASTIN TIME 32.4 Seconds (25.1-36.5)
[2018-02-07 21:00] LABS: URINE RBC 0 - 2 /hpf (0-2); URINE WBC NEGATIVE /hpf (0-6)
[2018-02-07 21:03] LABS: ALB/GLOB RATIO 1.3 (1.1-1.8); ALBUMIN 3.8 g/dL (3.0-4.8); CALCIUM 8.9 mg/dL (8.4-10.5)
[2018-02-07] MEDS ORDERED: Sodium Chloride 0.9% 500 ML IV STA (21:09)
[2018-02-07 21:30] LABS: TROPONIN I 0.19 ng/mL
[2018-02-07 21:32] LABS: ARTERIAL BLOOD GAS HCO3 23.2 mmol/L (21-28); ARTERIAL BLOOD GAS O2 SAT 99.9 % (95-98); ARTERIAL BLOOD GAS PCO2 41 mm/Hg (35-45); ARTERIAL BLOOD GAS PH 7.36 (7.35-7.45); ARTERIAL BLOOD GAS TCO2 24.5 mmol.L (22-28)
[2018-02-07] MEDS: NOREPINEPHRINE BIT/0.9 % NACL 4 MG/250 ML BAG IV PRN (21:36)
--- NOTE | 2018-02-07 21:37 | PCM.PROC ---
Procedures Attestation:: I certify that I have explained the specified Operation(s) or Procedure(s), risks, benefits and reasonable alternatives to the Patient and/or other person responsible. The opportunity was given to ask questions and all questions answered - Central Line Placement Right Internal Jugular Triple Lumen Catheter Aseptic technique was employed throughout the procedure: Hand Hygiene done prior to procedure, Full sterile barriers (mask, hair cover, sterile gown, sterile gloves), Full body sterile drape, Chloraprep Antiseptic: 30 second prep for IJ or SC sites CVP Time Out Performed: Yes Pt. Placed on Pulse Ox Monitor: Yes Central Line Prep: Chlorhexidine-Alcohol Combination Ultrasound Used for Placement: Yes Central Line Lumen Inserted: triple Central Line Length: 20 cm Post Procedure: Sutured in Place, Good Blood Return, All Ports Aspirated, Flushed, Capped, Sterile Dressing Applied Secured by: Securement device (and suture) Post procedure dressing: Clear vapor permeable, Chlorhexidine disc (Biopatch) Post Procedure X-Ray: Yes Patient Tolerated Procedure: Well Immediate Complications: None
[2018-02-07 21:42] LABS: BARBITURATES, UR NEGATIVE (NEGATIVE); BENZODIAZEPINES, UR NEGATIVE (NEGATIVE); OPIATES, UR NEGATIVE (NEGATIVE); PHENCYCLIDINE, UR NEGATIVE (NEGATIVE)
--- NOTE | 2018-02-07 22:30 | CP.PCM.CON ---
<John López - Last Filed: 02/08/18 00:25> History of Present Illness - History of Present Illness History of Present Illness: John López D.O. PGY-2, Internal Medicine Resident, Critical Care Consultation Note 67 year old male with a PMH of HTN, A-fib on Eliquis, cardiomyopathy s/p AICD, LE cellulitis, and diet non-compliance who presents to [facility] after he was down for about 20 minutes at home, suffered cardiac arrest on the field with ROSC after 4 rounds of epinephrine w/ ACLS protocol and 1 round of bicarb and cardioverted Vtach, who then again had cardiac arrest shortly after arriving in the ER with ROSC after 1 round of epinephrine w/ ACLS protocol. ICU consultation was requested. Patient was seen and examined at bedside. Patient is unresponsive and intubated at this time. Information was gathered from family who states that he has been feeling unwell and was very tired/somnolent before he suddenly collapsed. PMH: as above PSH: pacemaker, right knee surgery, left hip surgery SH: never smoked, drinks 3 beers and 1 pint of vodka per history on last admission and per family, history of cocaine use FH: unknown Meds: reviewed Allergies: penicillins Review of Systems - Review of Systems Systems not reviewed;Unavailable: Acuity of Condition, Intubated Past Patient History - Infectious Disease Hx of Infectious Diseases: MRSA - Past Social History Smoking Status: Never Smoked - CARDIAC Hx Cardiac Disorders: Yes Hx Congestive Heart Failure: Yes Hx Hypertension: Yes - PULMONARY Hx Chronic Obstructive Pulmonary Disease (COPD): Yes - NEUROLOGICAL Hx Neurological Disorder: No - HEENT Hx HEENT Problems: No - RENAL Hx Chronic Kidney Disease: No - ENDOCRINE/METABOLIC Hx Endocrine Disorders: No - HEMATOLOGICAL/ONCOLOGICAL Hx Blood Disorders: No - INTEGUMENTARY Hx Dermatological Problems: Yes Other/Comment: 01-28-18 BILATERAL LE EDEMA PITING +4 EXTENDING TO TESTICLES AND LOWER TO MID BACK,FLUSHED SKIN.MELISSA COLORED SKIN.'. RIGHT LEG MORE SWOLLEN THAN LEFT WITH AN OPENED WOUND JUST BELOW KNEE BIG A QUARTER WITH SMOOTH EDGES.'LEFT LEG WITH DRY THICKENED FLUSHED TO RED COLORED SKIN. - MUSCULOSKELETAL/RHEUMATOLOGICAL Hx Musculoskeletal Disorders: Yes Hx Degenerative Joint Disease: Yes Hx Falls: Yes (fell 11/29/17) Hx Unsteady Gait: Yes - GASTROINTESTINAL Hx Gastrointestinal Disorders: No - GENITOURINARY/GYNECOLOGICAL Hx Prostate Problems: Yes (Seeds in prostate) - PSYCHIATRIC Hx Psychophysiologic Disorder: No Hx Substance Use: No - SURGICAL HISTORY Hx Joint Replacement: Yes (right knee left hip) - ANESTHESIA Hx Anesthesia Reactions: No Meds Allergies/Adverse Reactions: Allergies Allergy/AdvReac Type Severity Reaction Status Date / Time Penicillins Allergy Mild ANAPHYLAXIS Verified 01/28/18 19:26 - Medications Medications: Current Medications Propofol (Diprivan) 1,000 mg in 100 mls @ 3 mls/hr IV .Q24H PRN; Protocol; 5 MCG/KG/MIN PRN Reason: TITRATE PER MD ORDER Last Admin: 02/07/18 20:12 Dose: 3 mls/hr NOREPINEPHRINE BIT/0.9 % NACL (Levophed 4 Mg/ 250 Ml Ns Premixed) 4 mg in 250 mls @ 15 mls/hr IV .[id number] PRN; Protocol; 4 MCG/MIN PRN Reason: TITRATE PER MD ORDER Last Admin: 02/07/18 21:36 Dose: 15 mls/hr Physical Exam - Constitutional Appears: Chronically Ill, Other (intubated elderly male) - Head Exam Head Exam: NORMOCEPHALIC Additional comments: small bleeding wound over forehead of unknown origin - Eye Exam Additional comments: fixed ~2mm bilateral - ENT Exam ENT Exam: Mucous Membranes Moist Additional comments: intubated - Neck Exam Neck exam: Positive for: Normal Inspection. Negative for: Lymphadenopathy Additional comments: R IJ CVC - Respiratory Exam Respiratory Exam: Clear to Auscultation Bilateral. absent: Rales, Rhonchi, Wheezes - Cardiovascular Exam Cardiovascular Exam: RRR, +S1, +S2 - GI/Abdominal Exam GI & Abdominal Exam: Normal Bowel Sounds, Soft. absent: Distended, Tenderness - Extremities Exam Extremities exam: Negative for: joint swelling, pedal edema Additional comments: chronic venous stasis changes, oozing wounds on BL LE - Neurological Exam Additional comments: GCS 3T - Skin Skin Exam: Dry, Warm Results - Vital Signs Recent Vital Signs: Last Vital Signs Temp 96 F L 02/07/18 21:17 Pulse 70 02/07/18 21:17 Resp 14 02/07/18 21:17 BP 97/47 L 02/07/18 21:17 Pulse Ox 100 02/07/18 21:17 - Labs Result Diagrams: 02/07/18 20:39 02/07/18 20:39 Labs: Laboratory Results - last 24 hr 02/07/18 21:15 pCO2 41 pO2 278.0 H HCO3 23.2 ABG pH 7.36 ABG Total CO2 24.5 ABG O2 Saturation 99.9 H ABG Base Excess -2.2 L ABG Potassium 3.2 L Sodium 128.0 L Chloride 98.0 Glucose 117 H Lactate 4.1 H* Mechanical Rate 14 FiO2 100.0 Tidal Volume 500 PEEP 5 Arterial Blood Potassium 3.2 L Assessment & Plan - Assessment and Plan (Free Text) Assessment: 67 year old male with a PMH of HTN, A-fib on Eliquis, cardiomyopathy s/p AICD, LE cellulitis, and diet non-compliance who presents to s/p cardiac arrest Plan: Neurological GCS 3T Will start cooling protocol, maintain temperature at 32-34 degrees C Neurochecks Q4H Head CT pending, will review read Neurology consulted Pulmonary Intubated on PRVC 500/14/5/100%, protective lung ventilation HOB >30 CXR reviewed, ET tube advanced 2cm, will re-shoot new CXR Maintain O2 Sat> 92% ABG repeat at midnight Cardiovascular EKG reviewed, possibility of new ischemic changes, now s/p cardiac arrest, known CHF w/ pacemaker Cardiology consulted Will start cooling protocol, maintain temp 32-34 degrees C and monitor closely R IJ CVC placed, confirmed position with CXR Started on levophed Maintain MAP >65 Gastrointestinal NPO OG tube in place CT abd/pelvis pending, will review Renal/Electrolytes YE KDIGO II likely 2/2 poor perfusion/pre renal, will maintain hemodynamics Repeat CMP Monitor urine output, strict IxOs Avoid nephrotoxins Avoid hyperchloremia Infectious disease Known lower extremity cellulitis, recently discharged on zyvox but did not fill due to some insurance reason and instead was on bactrim Will consult ID Will start back on zyvox given current YE as well as meropenem, known MRSA although unknown etiology for his arrest at this time Procalcitonin Hematologic No active bleeding On levophed gtt Monitor Endocrine Maintain euglycemia 140-180 per NICE-SUGAR trial GI/DVT ppx: protonix/will hold AC while cooling, last eliquis dose was yesterday evening Patient was seen and evaluated and case was discussed at length with attending physician. - Date & Time Date: 02/07/18 Time: 21:30 <Klever Joseph MD - Last Filed: 02/10/18 11:23> Meds - Medications Medications: Current Medications Artificial Tears (Artificial Tears Opht Oint) 0 gm OU Q6 KELLY Last Admin: 02/10/18 06:08 Dose: 1 applic Heparin Sodium (Porcine) (Heparin) 5,000 units SC Q12 KELLY PRN Reason: Protocol Last Admin: 02/10/18 09:14 Dose: 5,000 units Propofol (Diprivan) 1,000 mg in 100 mls @ 3 mls/hr IV .Q24H PRN; Protocol; 5 MCG/KG/MIN PRN Reason: TITRATE PER MD ORDER Last Admin: 02/10/18 06:08 Dose: 5 mcg/kg/min, 3 mls/hr NOREPINEPHRINE BIT/0.9 % NACL (Levophed 4 Mg/ 250 Ml Ns Premixed) 4 mg in 250 mls @ 15 mls/hr IV .[id number] PRN; Protocol; 4 MCG/MIN PRN Reason: TITRATE PER MD ORDER Last Titration: 02/10/18 07:38 Dose: 20 mcg/min, 75 mls/hr Fentanyl Citrate (Fentanyl Citrate/Sodium Chloride 1 Mg/100 Ml) 1,000 mcg in 100 mls @ 2 mls/hr IV .Q24H PRN; Protocol; 20 MCG/HR PRN Reason: TITRATE PER MD ORDER Last Titration: 02/09/18 19:00 Dose: Infused Cisatracurium Besylate 200 mg/ (Sodium Chloride) 250 mls @ 7.79 mls/hr IV .Q24H PRN; Protocol; 1 MCG/KG/MIN PRN Reason: TITRATE PER MD ORDER Last Titration: 02/09/18 20:44 Dose: Infused Vasopressin 20 units/ Sodium (Chloride) 101 mls @ 9.09 mls/hr IV .Q11H7M KELLY; 0.03 U/MIN PRN Reason: Protocol Last Admin: 02/09/18 22:15 Dose: 9.09 mls/hr Linezolid (Zyvox 600mg/300ml D5w) 600 mg in 300 mls @ 200 mls/hr IVPB Q12 KELLY PRN Reason: Protocol Stop: 02/18/18 10:01 Last Admin: 02/10/18 09:15 Dose: 200 mls/hr Midazolam 100 mg/100ml in NS (Midazolam 100 Mg/100ml In Ns) 100 mg in 100 mls @ 1 mls/hr IV .Q24H PRN; Protocol; 1 MG/HR PRN Reason: Agitation Last Titration: 02/09/18 23:00 Dose: 3 mg/hr, 3 mls/hr Dextrose/Sodium Chloride (Dextrose 5%/0.9% Ns 1000 Ml) 1,000 mls @ 140 mls/hr IV .Q7H9M KELLY Last Admin: 02/10/18 06:08 Dose: 140 mls/hr Valproate Sodium 1,000 mg/ (Sodium Chloride) 110 mls @ 100 mls/hr IVPB Q12 KELLY Last Admin: 02/10/18 09:13 Dose: 100 mls/hr Levetiracetam 1,500 mg/ Sodium (Chloride) 115 mls @ 460 mls/hr IV Q12H KELLY Aztreonam (Azactam 1 Gm) 100 mls @ 100 mls/hr IVPB Q8 KELLY PRN Reason: Protocol Stop: 02/17/18 11:31 Doxycycline Hyclate 100 mg/ (Sodium Chloride) 100 mls @ 100 mls/hr IVPB Q12 KELLY PRN Reason: Protocol Results - Vital Signs Recent Vital Signs: Last Vital Signs Temp 98.6 F 02/10/18 10:50 Pulse 70 02/10/18 10:50 Resp 20 02/10/18 08:23 BP 115/79 02/10/18 10:00 Pulse Ox 100 02/10/18 10:50 - Labs Result Diagrams: 02/10/18 06:00 02/10/18 06:00 Labs: Laboratory Results - last 24 hr 02/09/18 02/09/18 02/09/18 11:51 12:35 18:06 WBC RBC Hgb Hct MCV MCH MCHC RDW Plt Count MPV Gran % Lymph % (Auto) Jewell % (Auto) Eos % (Auto) Baso % (Auto) Gran # Lymph # (Auto) Jewell # (Auto) Eos # (Auto) Baso # (Auto) pCO2 pO2 HCO3 ABG pH ABG Total CO2 ABG O2 Saturation ABG O2 Content ABG Base Excess ABG Hemoglobin ABG Carboxyhemoglobin POC ABG HHb (Measured) ABG Methemoglobin ABG O2 Capacity Hgb O2 Saturation FiO2 Sodium Potassium Chloride Carbon Dioxide Anion Gap BUN Creatinine Est GFR ( Amer) Est GFR (Non-Af Amer) POC Glucose (mg/dL) 97 130 H Random Glucose Calcium Phosphorus 3.2 Magnesium 1.8 Total Bilirubin AST ALT Alkaline Phosphatase Total Protein Albumin Globulin Albumin/Globulin Ratio 02/09/18 02/10/18 02/10/18 23:52 05:20 05:46 WBC RBC Hgb Hct MCV MCH MCHC RDW Plt Count MPV Gran % Lymph % (Auto) Jewell % (Auto) Eos % (Auto) Baso % (Auto) Gran # Lymph # (Auto) Jewell # (Auto) Eos # (Auto) Baso # (Auto) pCO2 26 L pO2 199.0 H HCO3 20.3 L ABG pH 7.50 H ABG Total CO2 21.1 L ABG O2 Saturation 99.8 H ABG O2 Content 16.0 ABG Base Excess -1.8 ABG Hemoglobin 11.3 L ABG Carboxyhemoglobin 1.3 POC ABG HHb (Measured) 0.2 ABG Methemoglobin 0.9 ABG O2 Capacity 16.0 Hgb O2 Saturation 97.6 FiO2 60.0 Sodium Potassium Chloride Carbon Dioxide Anion Gap BUN Creatinine Est GFR ( Amer) Est GFR (Non-Af Amer) POC Glucose (mg/dL) 141 H 156 H Random Glucose Calcium Phosphorus Magnesium Total Bilirubin AST ALT Alkaline Phosphatase Total Protein Albumin Globulin Albumin/Globulin Ratio 02/10/18 02/10/18 02/10/18 06:00 06:00 08:05 WBC 12.6 H RBC 3.70 Hgb 11.3 L Hct 32.6 L MCV 88.1 MCH 30.5 MCHC 34.7 RDW 18.0 H Plt Count 176 MPV 9.9 Gran % 88.0 H Lymph % (Auto) 7.4 L Jewell % (Auto) 4.6 Eos % (Auto) 0.0 L Baso % (Auto) 0.0 Gran # 11.10 H Lymph # (Auto) 0.9 L Jewell # (Auto) 0.6 Eos # (Auto) 0.0 Baso # (Auto) 0.00 pCO2 pO2 HCO3 ABG pH ABG Total CO2 ABG O2 Saturation ABG O2 Content ABG Base Excess ABG Hemoglobin ABG Carboxyhemoglobin POC ABG HHb (Measured) ABG Methemoglobin ABG O2 Capacity Hgb O2 Saturation FiO2 Sodium 130 L Potassium 3.5 L Chloride 101 Carbon Dioxide 22 Anion Gap 10 BUN 27 H Creatinine 1.9 H Est GFR ( Amer) 43 Est GFR (Non-Af Amer) 35 POC Glucose (mg/dL) 157 H Random Glucose 160 H Calcium 6.8 L* Phosphorus Magnesium Total Bilirubin 1.1 AST 39 ALT 37 Alkaline Phosphatase 78 Total Protein 4.0 L Albumin 1.8 L Globulin 2.1 Albumin/Globulin Ratio 0.9 L Attending/Attestation - Attestation I have personally seen and examined this patient.: Yes I have fully participated in the care of the patient.: Yes I have reviewed all pertinent clinical information: Yes Notes (Text): -I agree with the above ICU note completed by the resident physician with the following additions and/or changes: -The patient is a 67 year old man with a history of HTN, paroxysmal A-fib (on Eliquis), cardiomyopathy (s/p AICD), recent lower extremity cellulitis and chronic alcohol abuse being admitted to the ICU with V-tach (s/p cardioversion in the field) followed by PEA arrest in the ED (s/p treatment per ACLS protocol) . Since ROSC, the patient has been unresponsive and therefore will be started on hypothermia protocol. Also, empiric IV antibiotics and Levophed drip. TLC and A-line have been placed already. ID, Cardiology and Neurology consults have been placed. The patients family () was notified in depth regarding the patients poor prognosis. Critical Care Time Spent: 60-90 minutes
--- NOTE | 2018-02-07 23:03 | CT ---
EXAM: CT Head Without Intravenous Contrast CLINICAL HISTORY: 67 years old, male; Signs and symptoms; Coma or unconsciousness; Additional info: Cardiac arrest TECHNIQUE: Axial computed tomography images of the head/brain without intravenous contrast. All CT scans at this facility use one or more dose reduction techniques, viz.: automated exposure control; ma/kV adjustment per patient size (including targeted exams where dose is matched to indication; i.e. head); or iterative reconstruction technique. Coronal and sagittal reformatted images were created and reviewed. COMPARISON: No relevant prior studies available. FINDINGS: Brain: Diffuse prominence of the sulci and ventricular system consistent with atrophy. Hypodensity throughout the white matter consistent with chronic small vessel disease. Ventricles: Unremarkable. No ventriculomegaly. Bones/joints: Unremarkable. No acute fracture. Soft tissues: Unremarkable. Sinuses: Unremarkable as visualized. No acute sinusitis. Mastoid air cells: Unremarkable as visualized. No mastoid effusion. Tubes, lines and devices: Orogastric and endotracheal tubes. Other findings: Suboptimal positioning of patient in gantry. IMPRESSION: No acute intracranial abnormality.
--- NOTE | 2018-02-07 23:43 | CT ---
EXAM: CT Chest Without Intravenous Contrast CLINICAL HISTORY: 67 years old, male; Signs and symptoms; Other: Sepsis; Patient HX: Sepsis. Cardiac arrest TECHNIQUE: Axial computed tomography images of the chest without intravenous contrast. All CT scans at this facility use one or more dose reduction techniques, viz.: automated exposure control; ma/kV adjustment per patient size (including targeted exams where dose is matched to indication; i.e. head); or iterative reconstruction technique. Coronal and sagittal reformatted images were created and reviewed. COMPARISON: No relevant prior studies available. FINDINGS: Tubes, lines and devices: An endotracheal tube is in place. Tip of the tube is at the thoracic inlet. A nasogastric tube is present and extends into the stomach. There is streak artifact from a pacemaker in the left chest wall.There is streak artifact from pacemaker leads. There is a right jugular catheter, tip most likely in the vena cava Lungs and pleural spaces: There are bilateral pleural effusions. There is airspace disease greatest in the left upper and lower lobes. There is less extensive airspace disease in the right middle and lower lobes. There are atelectatic changes in the right lower lobe. There is no pneumothorax. Heart and vasculature: The heart is enlarged. There is iatrogenic venous air in the right atrium.There are coronary artery calcifications. Aorta is normal in caliber. There are vascular calcifications. The main pulmonary artery is dilated, 4 cm in diameter. Mediastinum: Esophagus is collapsed around the nasogastric tube. Streak limits evaluation of mediastinum. There is shotty mediastinal nodes. Maureen are not optimally evaluated without contrast material. There is edema in pericardial fat Thyroid: Thyroid is only partially imaged. Bones/joints: Bony structures are osteopenic. There degenerative changes. There are acute nondisplaced fractures of the right second and third ribs. There are acute displaced anterior right fourth fifth and sixth rib fractures. There is a non-displaced acute seventh rib fracture. There are multiple old healed posterior right rib fractures. There are acute mildly displaced left fourth fifth sixth rib fractures. There is a nondisplaced left seventh rib fracture. There is an acute nondisplaced left third rib fracture. There is bruising in the chest wall bilaterally. There may be a nondisplaced fracture of the sternal body. Soft tissues: unremarkable Upper abdomen: Refer to final report for abdominal findings IMPRESSION: Tubes and catheters as described; cardiomegaly and atherosclerotic disease; dilated main pulmonary artery suggest pulmonary hypertension; bilateral pleural effusions with airspace disease greatest in the left upper and lower lobes edema versus aspiration or hemorrhage; less extensive airspace disease at the right base; bilateral rib fractures and possible sternal fracture consistent with recent chest compression Additional nonemergent findings as described above. EXAM: CT Abdomen and Pelvis Without Intravenous Contrast EXAM DATE/TIME: 02/07/2018 9:37 PM CLINICAL HISTORY: 67 years old, male; Signs and symptoms; Other: Sepsis; Patient HX: Sepsis. Cardiac arrest TECHNIQUE: Axial computed tomography images of the abdomen and pelvis without intravenous contrast. All CT scans at this facility use one or more dose reduction techniques, viz.: automated exposure control; ma/kV adjustment per patient size (including targeted exams where dose is matched to indication; i.e. head); or iterative reconstruction technique. Coronal and sagittal reformatted images were created and reviewed. COMPARISON: DX - CHEST PORTABLE 2018-02-07 21:26 FINDINGS: Lung bases: Refer to prior report for chest findings ABDOMEN: Liver: Hepatic contours are mildly nodular. Gallbladder and bile ducts: Gallbladder is partially distended with stones. Common duct is mildly prominent. Pancreas: Pancreas is mildly atrophic. Spleen: unremarkable Adrenals: There is nodular thickening of both adrenals. Kidneys and ureters: unremarkable Stomach and bowel: Stomach is empty. Rotation is normal. There is no small bowel obstruction. Ileocecal region is unremarkable. Appendix and terminal ileum are unremarkable.There is moderate stool throughout the colon. PELVIS: Appendix: See stomach and bowel Bladder: unremarkable Reproductive: There are multiple metallic seeds in the prostate. Seminal vesicles are obscured by streak artifact from a left hip prosthesis ABDOMEN and PELVIS: Intraperitoneal space: There is a small amount of ascites in the upper abdomen. There is a small amount of ascites in the pelvis. There is no free air. Bones/joints: There is a left hip prosthesis. Bony structures are osteopenic. There degenerative changes. Soft tissues: There is a small fat containing umbilical hernia. There is body wall edema. Vasculature: There are vascular calcifications. Inferior vena cava appears mildly dilated. Lymph nodes: There is shotty adenopathy. IMPRESSION: Possible cirrhosis; small volume ascites, etiology unclear
[2018-02-08 00:54] LABS: ARTERIAL BLOOD GAS HCO3 24.7 mmol/L (21-28); ARTERIAL BLOOD GAS O2 SAT 100.2 % (95-98); ARTERIAL BLOOD GAS PCO2 55 mm/Hg (35-45); ARTERIAL BLOOD GAS PH 7.26 (7.35-7.45); ARTERIAL BLOOD GAS TCO2 26.4 mmol.L (22-28)
[2018-02-08 01:09] LABS: VENOUS BLOOD GAS BASE EXCESS 2.7 mmol/L (0.0-2.0); VENOUS BLOOD GAS PO2 75 mm/Hg (30-55); VENOUS BLOOD PH 7.23 (7.32-7.43)
[2018-02-08 01:23] LABS: BASO # 0.01 K/mm3 (0.0-2.0); BASO % 0.1 % (0.0-3.0); EOS % 0.1 % (1.5-5.0); GRAN # 15.63 (1.4-6.5); GRAN % 92.5 % (50.0-68.0); HEMOGLOBIN 11.2 g/dL (14.0-18.0); LYMPH # 0.5 (1.2-3.4); MEAN CELL VOLUME 92.7 fl (80.0-105.0); MEAN CORPUSCULAR HEMOGLOBIN 30.4 pg (25.0-35.0); MEAN CORPUSCULAR HGB CONC 32.8 g/dl (31.0-37.0); MONO # 0.7 (0.1-0.6); MONO % 4.3 % (1.0-6.0); PLATELET COUNT 129 10^3/uL (120.0-450.0); RBC 3.68 10^6/uL (3.5-6.1); RED CELL DISTRIBUTION WIDTH 17.1 % (11.5-14.5); WHITE BLOOD COUNT 16.9 10^3/ul (4.5-11.0)
[2018-02-08 01:27] LABS: ALBUMIN 2.4 g/dL (3.0-4.8); CALCIUM 7.5 mg/dL (8.4-10.5)
--- NOTE | 2018-02-08 01:41 | PCM.PROC ---
<Sheree Ambrosio - Last Filed: 02/08/18 01:38> Procedures Attestation:: I certify that I have explained the specified Operation(s) or Procedure(s), risks, benefits and reasonable alternatives to the Patient and/or other person responsible. The opportunity was given to ask questions and all questions answered - Arterial Line Right Femoral Aseptic technique was employed throughout the procedure: Hand Hygiene done prior to procedure, Full sterile barriers (mask, hair cover, sterile gown, sterile gloves), Full body sterile drape, Chloraprep Antiseptic: 2 minute prep for Femoral Time Out Performed: Yes Pt. placed on Pulse Ox Monitor: Yes Central Line Prep: Chlorhexidine-Alcohol Combination Ultrasound Used for Placement: Yes Gauge (Size): 20 gauge Technique Used: Guide Wire Technique Secured by: Suture Post procedure dressing: Clear vapor permeable, Chlorhexidine disc (Biopatch) Patient Tolerated Procedure: well Immediate Complications: none Additional Comments: Waveform was identified on the monitor confirming correct placement Assisted by Dr. John López <Opal VANEGAS,Klever - Last Filed: 02/10/18 11:27> Attending/Attestation - Attestation I have personally seen and examined this patient.: Yes I have fully participated in the care of the patient.: Yes I have reviewed all pertinent clinical information, including history, physical exam and plan: Yes
[2018-02-08 01:45] LABS: INR 2.01 (0.93-1.08); PROTHROMBIN TIME 23.2 SECONDS (9.4-12.5)
[2018-02-08] MEDS: Propofol 10 mg/ml 1,000 MG/100 ML VIAL IV PRN ×5 (02:05→21:53)
[2018-02-08] MEDS: Sodium Chloride 0.9% 1,000 ML IV SCH ×3 (02:06→16:51)
[2018-02-08 04:03] LABS: BAND 9 % (0-2); EOSINOPHIL 1 % (0.0-3.0); LYMPHOCYTE 6 % (22.0-35.0); MONOCYTE 2 % (1.0-6.0); NEUTROPHIL 82 % (50.0-70.0); PLATELET ESTIMATE NORMAL (NORMAL)
[2018-02-08 06:18] LABS: GRAN # 18.05 (1.4-6.5); GRAN % 93.8 % (50.0-68.0); HEMOGLOBIN 11.3 g/dL (14.0-18.0); LYMPH # 0.6 (1.2-3.4); LYMPH % 2.9 % (22.0-35.0); MEAN CELL VOLUME 92.2 fl (80.0-105.0); MEAN CORPUSCULAR HEMOGLOBIN 30.5 pg (25.0-35.0); MEAN CORPUSCULAR HGB CONC 33.1 g/dl (31.0-37.0); MEAN PLATELET VOLUME 8.9 fl (7.0-11.0); MONO # 0.6 (0.1-0.6); MONO % 3.3 % (1.0-6.0); RBC 3.7 10^6/uL (3.5-6.1); RED CELL DISTRIBUTION WIDTH 17.1 % (11.5-14.5); WHITE BLOOD COUNT 19.2 10^3/ul (4.5-11.0)
[2018-02-08 06:38] LABS: ALBUMIN 2.2 g/dL (3.0-4.8); CALCIUM 7.4 mg/dL (8.4-10.5)
[2018-02-08 07:42] LABS: ARTERIAL BLOOD GAS PCO2 57 mm/Hg (35-45); ARTERIAL BLOOD GAS TCO2 29.7 mmol.L (22-28)
[2018-02-08] MEDS: NOREPINEPHRINE BIT/0.9 % NACL 4 MG/250 ML BAG IV PRN ×4 (08:23→22:20)
[2018-02-08] MEDS: Meropenem 500 MG in Sodium Chloride 0.9% 50 ML IVPB SCH ×2 (09:33→21:05)
[2018-02-08] MEDS ORDERED: Linezolid 600 mg in D5W 300 ml 600 MG/300 ML BAG IVPB SCH (10:00)
[2018-02-08] MEDS ORDERED: Meropenem 500 MG in Sodium Chloride 0.9% 50 ML IVPB SCH (10:00)
--- NOTE | 2018-02-08 11:06 | CP.PCM.CON ---
History of Present Illness - History of Present Illness History of Present Illness: 67 yr old male who had a cardiac arrest yesterday, down for about 30 minutes, coded, who is now intubated, sedated, in the ICU. has a history of HTN, A-fib on Eliquis, cardiomyopathy s/p AICD, LE cellulitis. He had 4 rounds of epinephrine w/ ACLS protocol and 1 round of bicarb and cardioverted Vtach, who then again had cardiac arrest shortly after arriving in the ER with ROSC after 1 round of epinephrine w/ ACLS protocol. According to the chart, patient was experiencing malaise and feeling unwell for many days before, although there is no report of chest pain. PMH: as above PSH: pacemaker, right knee surgery, left hip surgery SH: never smoked, drinks 3 beers and 1 pint of vodka per history on last admission and per family, history of cocaine use FH: unknown Meds: reviewed Allergies: penicillins on exam: Sedated, intubated on propofol. PERRL. no dolls eyes, no corneals, +gag, weak, posturing not moving extremities spontaneously. +1 dtr ul and ll bl. Toes downgoing. no clonus. Past Patient History - Infectious Disease Hx of Infectious Diseases: MRSA - Past Social History Smoking Status: Unknown If Ever Smoked - CARDIAC Hx Cardiac Disorders: Yes Hx Congestive Heart Failure: Yes Hx Hypertension: Yes - PULMONARY Hx Chronic Obstructive Pulmonary Disease (COPD): Yes - NEUROLOGICAL Hx Neurological Disorder: No - HEENT Hx HEENT Problems: No - RENAL Hx Chronic Kidney Disease: No - ENDOCRINE/METABOLIC Hx Endocrine Disorders: No - HEMATOLOGICAL/ONCOLOGICAL Hx Blood Disorders: No - INTEGUMENTARY Hx Dermatological Problems: Yes Other/Comment: BILATERAL LE EDEMA PITING +4 EXTENDING TO TESTICLES AND LOWER TO MID BACK,FLUSHED SKIN.MELISSA COLORED SKIN.'. RIGHT LEG MORE SWOLLEN THAN LEFT WITH AN OPENED WOUND JUST BELOW KNEE BIG A QUARTER WITH SMOOTH EDGES.' LEFT LEG WITH DRY THICKENED FLUSHED TO RED COLORED SKIN. - MUSCULOSKELETAL/RHEUMATOLOGICAL Hx Musculoskeletal Disorders: Yes Hx Degenerative Joint Disease: Yes Hx Falls: Yes (fell 11/29/17) Hx Unsteady Gait: Yes - GASTROINTESTINAL Hx Gastrointestinal Disorders: No - GENITOURINARY/GYNECOLOGICAL Hx Prostate Problems: Yes (Seeds in prostate) - PSYCHIATRIC Hx Psychophysiologic Disorder: No - SURGICAL HISTORY Hx Joint Replacement: Yes (right knee left hip) - ANESTHESIA Hx Anesthesia Reactions: No Meds Allergies/Adverse Reactions: Allergies Allergy/AdvReac Type Severity Reaction Status Date / Time Penicillins Allergy Mild ANAPHYLAXIS Verified 01/28/18 19:26 - Medications Medications: Current Medications Propofol (Diprivan) 1,000 mg in 100 mls @ 3 mls/hr IV .Q24H PRN; Protocol; 5 MCG/KG/MIN PRN Reason: TITRATE PER MD ORDER Last Admin: 02/08/18 08:36 Dose: 45 mcg/kg/min, 27 mls/hr NOREPINEPHRINE BIT/0.9 % NACL (Levophed 4 Mg/ 250 Ml Ns Premixed) 4 mg in 250 mls @ 15 mls/hr IV .[id number] PRN; Protocol; 4 MCG/MIN PRN Reason: TITRATE PER MD ORDER Last Admin: 02/08/18 08:23 Dose: 20 mcg/min, 75 mls/hr Sodium Chloride (Sodium Chloride 0.9%) 1,000 mls @ 140 mls/hr IV .[id number] KELLY Last Admin: 02/08/18 08:29 Dose: 140 mls/hr Meropenem 500 mg/ Sodium (Chloride) 50 mls @ 100 mls/hr IVPB Q12 KELLY PRN Reason: Protocol Stop: 02/17/18 10:01 Last Admin: 02/08/18 09:33 Dose: 100 mls/hr Linezolid (Zyvox 600mg/300ml D5w) 600 mg in 300 mls @ 200 mls/hr IVPB Q12 KELLY PRN Reason: Protocol Stop: 02/08/18 11:29 Last Admin: 02/08/18 09:37 Dose: 200 mls/hr Acetaminophen (Ofirmev) 1,000 mg in 100 mls @ 400 mls/hr IVPB Q6H PRN PRN Reason: Rigors Stop: 02/10/18 08:04 Last Admin: 02/08/18 09:35 Dose: 400 mls/hr Results - Vital Signs Recent Vital Signs: Last Vital Signs Temp 96 F L 02/08/18 04:22 Pulse 70 02/08/18 10:00 Resp 11 L 02/08/18 06:52 BP 94/63 L 02/08/18 04:00 Pulse Ox 100 02/08/18 06:52 - Labs Result Diagrams: 02/08/18 06:00 02/08/18 06:00 Labs: Laboratory Results - last 24 hr 02/07/18 02/07/18 02/08/18 21:15 23:55 00:57 WBC RBC Hgb Hct MCV MCH MCHC RDW Plt Count MPV Gran % Lymph % (Auto) Taylor % (Auto) Eos % (Auto) Baso % (Auto) Gran # Lymph # (Auto) Taylor # (Auto) Eos # (Auto) Baso # (Auto) Neutrophils % (Manual) Band Neutrophils % Lymphocytes % (Manual) Monocytes % (Manual) Eosinophils % (Manual) Platelet Evaluation PT INR APTT pCO2 41 55 H pO2 278.0 H 263.0 H 75 H HCO3 23.2 24.7 ABG pH 7.36 7.26 L ABG Total CO2 24.5 26.4 ABG O2 Saturation 99.9 H 100.2 H ABG Base Excess -2.2 L -3.2 L ABG Potassium 3.2 L 2.8 L VBG pH 7.23 L VBG pCO2 78.0 H* VBG HCO3 32.7 H VBG Total CO2 35.1 H VBG O2 Sat (Calc) 95.9 H VBG Base Excess 2.7 H VBG Potassium 3.8 Sodium 128.0 L 134.0 128.0 L Chloride 98.0 103.0 94.0 L Glucose 117 H 119 H 135 H Lactate 4.1 H* 1.2 1.4 Mechanical Rate 14 FiO2 100.0 100.0 21.0 Tidal Volume 500 PEEP 5 Potassium Carbon Dioxide Anion Gap BUN Creatinine Est GFR ( Amer) Est GFR (Non-Af Amer) Random Glucose Calcium Phosphorus Magnesium Total Bilirubin AST ALT Alkaline Phosphatase Total Protein Albumin Globulin Albumin/Globulin Ratio Arterial Blood Potassium 3.2 L 2.8 L Venous Blood Potassium 3.8 02/08/18 02/08/18 02/08/18 00:57 00:57 00:57 WBC 16.9 H D RBC 3.68 Hgb 11.2 L D Hct 34.1 L MCV 92.7 MCH 30.4 MCHC 32.8 RDW 17.1 H Plt Count 129 MPV 10.0 Gran % 92.5 H Lymph % (Auto) 3.0 L Taylor % (Auto) 4.3 Eos % (Auto) 0.1 L Baso % (Auto) 0.1 Gran # 15.63 H Lymph # (Auto) 0.5 L Taylor # (Auto) 0.7 H Eos # (Auto) 0.0 Baso # (Auto) 0.01 Neutrophils % (Manual) 82 H Band Neutrophils % 9 H Lymphocytes % (Manual) 6 L Monocytes % (Manual) 2 Eosinophils % (Manual) 1 Platelet Evaluation Normal PT 23.2 H INR 2.01 H APTT 34.0 pCO2 pO2 HCO3 ABG pH ABG Total CO2 ABG O2 Saturation ABG Base Excess ABG Potassium VBG pH VBG pCO2 VBG HCO3 VBG Total CO2 VBG O2 Sat (Calc) VBG Base Excess VBG Potassium Sodium 129 L Chloride 91 L Glucose Lactate Mechanical Rate FiO2 Tidal Volume PEEP Potassium 3.9 Carbon Dioxide 31 Anion Gap 11 BUN 27 H Creatinine 1.7 H Est GFR ( Amer) 49 Est GFR (Non-Af Amer) 40 Random Glucose 126 H Calcium 7.5 L Phosphorus 4.1 Magnesium 2.1 Total Bilirubin 1.2 AST 54 ALT 45 Alkaline Phosphatase 88 Total Protein 4.7 L Albumin 2.4 L Globulin 2.3 Albumin/Globulin Ratio 1.0 L Arterial Blood Potassium Venous Blood Potassium 02/08/18 02/08/18 02/08/18 06:00 06:00 07:20 WBC 19.2 H RBC 3.70 Hgb 11.3 L Hct 34.1 L MCV 92.2 MCH 30.5 MCHC 33.1 RDW 17.1 H Plt Count 125 MPV 8.9 Gran % 93.8 H Lymph % (Auto) 2.9 L Taylor % (Auto) 3.3 Eos % (Auto) 0.0 L Baso % (Auto) 0.0 Gran # 18.05 H Lymph # (Auto) 0.6 L Taylor # (Auto) 0.6 Eos # (Auto) 0.0 Baso # (Auto) 0.00 Neutrophils % (Manual) Band Neutrophils % Lymphocytes % (Manual) Monocytes % (Manual) Eosinophils % (Manual) Platelet Evaluation PT INR APTT pCO2 57 H pO2 282.0 H HCO3 28.0 ABG pH 7.30 L ABG Total CO2 29.7 H ABG O2 Saturation 100.0 H ABG Base Excess 0.4 ABG Potassium 3.4 L VBG pH VBG pCO2 VBG HCO3 VBG Total CO2 VBG O2 Sat (Calc) VBG Base Excess VBG Potassium Sodium 129 L 129.0 L Chloride 93 L 96.0 L Glucose 119 H Lactate 1.0 Mechanical Rate FiO2 100.0 Tidal Volume PEEP Potassium 3.7 Carbon Dioxide 30 Anion Gap 10 BUN 27 H Creatinine 1.7 H Est GFR ( Amer) 49 Est GFR (Non-Af Amer) 40 Random Glucose 119 H Calcium 7.4 L Phosphorus 3.9 Magnesium 2.0 Total Bilirubin 1.2 AST 56 ALT 43 Alkaline Phosphatase 83 Total Protein 4.4 L Albumin 2.2 L Globulin 2.2 Albumin/Globulin Ratio 1.0 L Arterial Blood Potassium 3.4 L Venous Blood Potassium Assessment & Plan - Assessment and Plan (Free Text) Assessment: 67 yr old male with anoxic encephalopathy, possible stroke, secondary to cardiac arrest in the field. PLan: 1. Repeat CT head today 2. EEG saturday Thank you Dr. marie
--- NOTE | 2018-02-08 11:19 | RAD ---
HISTORY: Pleural effusions COMPARISON: No prior. FINDINGS: ETT tip lies approximately 4.2 cm above cindy. In situ NGT with tip in the left upper quadrant of the abdomen. No change right IJ central line with tip in the SVC. The LUNGS: Patchy opacity right mid to lower lung field likely representing some combination of atelectasis/infiltrate with moderate-sized effusion. Minimal left basilar atelectasis and suspected small left effusion PLEURA: No significant pleural effusion identified, no pneumothorax apparent. CARDIOVASCULAR: No change single lead pacemaker/ defibrillator. Heart size unchanged. OSSEOUS STRUCTURES: No significant abnormalities. VISUALIZED UPPER ABDOMEN: Normal. OTHER FINDINGS: None. IMPRESSION: Support lines and tubes as above Patchy opacity right mid to lower lung field likely representing some combination of atelectasis/infiltrate with moderate-sized effusion. Minimal left basilar atelectasis and suspected small left effusion
--- NOTE | 2018-02-08 11:34 | RAD ---
HISTORY: Central line COMPARISON: Comparison chest dated 02/07/2018 at 20:33 hours. Comparison also made with CT scan chest 02/07/2018 FINDINGS: Interval placement right IJ central line with tip in the SVC. Interval placement NGT, the tip of which appears to lie left upper quadrant of the abdomen In situ ETT tip of which lies approximately 7.4 cm above icndy. LUNGS: Large right-sided effusion and right basilar atelectasis. Small left-sided effusion and patchy consolidation changes throughout the left lung PLEURA: No significant pleural effusion identified, no pneumothorax apparent. CARDIOVASCULAR: Re- demonstrated is single lead pacemaker/defibrillator. Marked cardiomegaly again noted OSSEOUS STRUCTURES: No significant abnormalities. VISUALIZED UPPER ABDOMEN: Normal. OTHER FINDINGS: None. IMPRESSION: Support lines and tubes as above. Large right-sided effusion and right basilar atelectasis. Small left-sided effusion and patchy consolidation changes throughout the left lung
--- NOTE | 2018-02-08 11:48 | RAD ---
HISTORY: Cardiac arrest COMPARISON: This study was read in conjunction with CT scan chest abdomen pelvis 02/07/2018 at 2224 hours. . Comparison also made with prior chest radiograph 01/28/2018 FINDINGS: In situ ETT, tip of which lies 7.6 cm above cindy. LUNGS: Large right-sided effusion with right basilar atelectasis. Patchy infiltrate changes throughout the left lung with small left-sided effusion PLEURA: No significant pleural effusion identified, no pneumothorax apparent. CARDIOVASCULAR: Heart remains markedly enlarged. No change single lead pacemaker/defibrillator. OSSEOUS STRUCTURES: No significant abnormalities. VISUALIZED UPPER ABDOMEN: Normal. OTHER FINDINGS: None. IMPRESSION: In situ ETT as above. Large right-sided effusion with right basilar atelectasis. Patchy infiltrate changes throughout the left lung with small left-sided effusion. Marked cardiomegaly
[2018-02-08] MEDS ORDERED: Fentanyl 1000mcg/100ml NS 1,000 MCG/100 ML BAG IV PRN (12:01)
[2018-02-08] MEDS ORDERED: SODIUM CHLORIDE 0.9% IV PRN (12:09)
[2018-02-08] MEDS ORDERED: CISATRACURIUM BESYLATE IV PRN (12:09)
--- NOTE | 2018-02-08 12:14 | PN ---
DATE: 02/08/2018 PHARMACY OPERATIONS SPECIALIST NOTE SUBJECTIVE: The patient is unresponsive with Diprivan and his blood pressure is being supported with Levophed. The patient is on a ventilator with FiO2 of 60% and is getting a cooling protocol at this time. Note that the patient is status post CPR with V-tach and PEA. PHYSICAL EXAMINATION: VITAL SIGNS: As far as physical exam, note that his temperature is being maintained about 33.9 centigrade and his pulse is 70, respirations are 18 and BP is 94/63. Skin: Cool because of the cooling protocol. HEENT: Head: Atraumatic, normocephalic. Eyes: Sluggishly reactive. Ear, nose and throat seemed to be within normal limits. NECK: Supple. No JVD. No thyroid enlargement. No lymph nodes. HEART: Has regular rate and rhythm. Normal S1, S2. LUNGS: Reveal mild rhonchi bilaterally. ABDOMEN: Soft. Decreased bowel sounds. GENITALIA: Deferred. RECTAL: Deferred. MUSCULOSKELETAL: No joint deformities. EXTREMITIES: Reveal 1+ lower extremity edema. NEUROLOGICAL: The patient is unresponsive on the ventilator. LABORATORY DATA: As far as our laboratories are concerned, his white count is 19.2, hemoglobin is 11.3, hematocrit 34.1 with platelets of 125,000. Arterial blood gas reveals a pH of 7.30, pCO2 of 57, pO2 of 282, this is on 100% FiO2. His sodium is 129, potassium 3.7, chloride 93, CO2 30 with a BUN of 27, creatinine of 1.3 and glucose of 119. The patient's chest x-ray reveals large infiltrate on the right. Middle lobe and lower lobe possible pleural effusion and small infiltrate at the left base. This is an unofficial reading. IMPRESSION: As far as my impression, this patient has cardiac arrest with ventricular tachycardia and PEA. CPR was performed. The patient has respiratory failure requiring ventilator support with FiO2 of 60%. He is hypotensive with noted bilateral infiltrates/pneumonia and a right-sided pleural effusion. The patient has a history of atrial fibrillation, hypertension, cardiomyopathy with an automatic implantable cardioverter-defibrillator in place, lower extremity cellulitis and is noted at this time to have hyponatremia as well as renal insufficiency and anemia. PLAN: As far as our plan, we will continue with ventilator support and decrease the FiO2 as needed. We will also follow his chest x-ray and arterial blood gas closely. The patient will continue with Levophed and Diprivan and is getting IV Tylenol at this time as per protocol. The patient will be followed with his electrolytes as well as magnesium, phosphorus and lactate on a every 6 basis and CBC and coags on every 12 basis as per cooling protocol. He is getting meropenem as far as antibiotics and is on normal saline as well. We will continue to treat aggressively along with the other consultants and the primary care doctor. Blue Benites MD
--- NOTE | 2018-02-08 15:45 | CT ---
PROCEDURE: CT HEAD WITHOUT CONTRAST. HISTORY: Stroke COMPARISON: Comparison CT scan 02/07/2018 TECHNIQUE: Axial computed tomography images were obtained through the head/brain without intravenous contrast. Radiation dose: Total exam DLP = 1052.67 mGy-cm. This CT exam was performed using one or more of the following dose reduction techniques: Automated exposure control, adjustment of the mA and/or kV according to patient size, and/or use of iterative reconstruction technique. FINDINGS: HEMORRHAGE: No acute parenchymal, subarachnoid or extra-axial hemorrhage hemorrhage. BRAIN: Moderate diffuse/confluent chronic periventricular white matter ischemic changes are again seen extending peripherally into the deep and subcortical white matter both cerebral hemispheres. There are additional scattered appearing more discrete deep and subcortical white matter ischemic changes. Chronic bilateral basal nuclei lacunar type infarcts are present. VENTRICLES: No obstructive hydrocephalus. CALVARIUM: No obvious acute calvarial fractures however there appears to be mild right frontotemporal and left temporoparietal scalp swelling. . Minor mucosal thickening within both maxillary antra as well as ethmoid air complex extending superiorly into the frontal sinus. Minimal mucosal thickening sphenoid sinus. There is fluid seen within the posterior nasopharynx which extends into the posterior nasal cavities. MASTOID AIR CELLS: . Note that the right mastoid air complex is somewhat sclerotic and underpneumatized. There is partial opacification of of both mastoid air complexes OTHER FINDINGS: Changes of bilateral cataract surgery present. IMPRESSION: No acute intracranial hemorrhage. Moderate chronic white matter ischemic changes with scattered deep and subcortical white matter and basal nuclei ischemic changes. Moderate generalized volume loss. Right frontotemporal and left temporoparietal scalp swelling.
--- NOTE | 2018-02-08 17:10 | CARD ---
APPROVED REPORT EKG Measurement Heart [id number] <Conclusion> Demand pacemaker , consider failure to capture interpretation is based on intrinsic rhythm Undetermined rhythm Left axis deviation Right bundle branch block Inferior infarct, age undetermined Anterior injury pattern ACUTE VT Abnormal ECG
--- NOTE | 2018-02-08 17:25 | CON ---
DATE: 02/08/2018 LOCATION: The patient is in the ICU, 129, bed 7. CHIEF COMPLAINT: Respiratory failure x1 day. HISTORY OF PRESENT ILLNESS: This is a 67-year-old male with recent hospitalization with a history of congestive heart failure, hypertension, COPD, atrial fibrillation, pacemaker, history of MRSA and Pseudomonas, right leg cellulitis, significant for prostate cancer and peripheral vascular disease who was recently hospitalized, now admitted after a cardiac arrest with acute kidney injury. Infectious Disease consultation requested. The patient is now intubated on the ventilator in the unit, in bed 7. He is unresponsive and he was seen in the emergency room yesterday on 02/07/2018 and the patient in the emergency room was brought in by EMS, status post cardiac arrest prior to the arrival to the emergency room and EMS. Probably the patient reportedly collapsed at home, suddenly unresponsive. The Emergency Medical Service arrived at 15 to 20 minutes after and initiated CPR and four rounds of epinephrine were given, one round of bicarbonate and cardioverted and V-tach and the patient had another cardiac arrest again, now in the ICU, intubated, unable to give any history. REVIEW OF SYSTEMS: Reveals the patient had hypothermia. No diarrhea was reported. Twelve point review of systems performed. PAST MEDICAL HISTORY: Significant for congestive heart failure, hypertension, chronic obstructive lung disease, atrial fibrillation, peripheral vascular disease. PAST SURGICAL HISTORY: Significant for pacemaker, left ORIF, prostate surgery of seeding, right knee surgery. The patient with prostate cancer and had MRSA and Pseudomonas infection in the right leg. ALLERGIES: THE PATIENT IS ALLERGIC TO PENICILLIN. MEDICATIONS AT HOME: Reviewed and include oxycodone, valsartan, Bactrim, spironolactone, losartan. Although some of the medications on that list are not accurate. PHYSICAL EXAMINATION: VITAL SIGNS: The patient is intubated on the ventilator with a temperature of 94 as stated and heart rate is 70, respiratory rate on the vent and blood pressure is noted, 94/60. HEENT: Unremarkable. ET tube is in place. NECK: Supple. LUNGS: Decreased breath sounds. ABDOMEN: Soft, nontender. LABORATORY DATA: White count is 19,000, hemoglobin of 11. Coagulation is noted and chemistries reveal the patient has creatinine of 1.7 and 1.8. The patient's creatinine was normal; on the last admission, was 1.1 creatinine. The patient had CAT scan of the chest and abdomen, which showed possible cirrhosis, small volume of ascites, etiology unclear. Chest is questionable with consolidation. The patient is on norepinephrine, Levophed for blood pressure. ASSESSMENT AND PLAN: This is a 67-year-old male with congestive heart failure, hypertension, chronic obstructive pulmonary disease, atrial fibrillation, peripheral vascular disease, prostate cancer, history of methicillin-resistant Staphylococcus aureus and Pseudomonas and right leg infection now presenting, status post cardiac arrest with septic shock and healthcare-associated pneumonia and respiratory failure, intubated on a ventilator, status post cardiac arrest x2 and acute kidney injury. We will treat the patient with Zyvox and meropenem for now. Pending carvalho culture and procalcitonin level. We will follow closely with you. Overall prognosis is quite poor. Jesús Bernabe MD
[2018-02-08] MEDS ORDERED: levETIRAcetam 1,000 MG in Sodium Chloride 0.9% 100 ML IV STA (17:53)
--- NOTE | 2018-02-08 18:26 | HP ---
HISTORY OF PRESENT ILLNESS: The patient is 67 years old, seen in ICU, bed 7. Patient is intubated. No information can be received from him, so ER notes appreciated. According to ER notation, patient collapsed in his house and called for help and some bystanders called ambulance and he was intubated in the field. According to ER notes, he was down for 20 minutes. When he came to the emergency room, he was coded again. Resuscitation was done. Patient was transferred to ICU for further management. PAST MEDICAL HISTORY: Patient apparently has some past medical history significant for: 1. AFib on Eliquis. 2. Cardiomyopathy. 3. Status post defibrillator placement. 4. History of bilateral leg cellulitis. 5. History of right knee surgery. 6. History of left hip surgery. SOCIAL HISTORY: He is , lives with his . Denies smoking, but he used to drink 3 beers and 1 pint of vodka almost on a regular basis. ALLERGY: HE IS ALLERGIC TO PENICILLIN. MEDICATION AT HOME: He is supposed to be on Percocet, valsartan 320 daily, Bactrim, spironolactone, multivitamin, Losartan 100 daily, Zyvox 600 twice a day, Lasix 60 mg twice a day, Coreg 25 twice a day, Eliquis 5 mg daily and amiodarone. REVIEW OF SYSTEMS: The patient is intubated, has fixed dilated pupil. He is hypothermic. PHYSICAL EXAMINATION: GENERAL: He is unresponsive. VITAL SIGNS: His temperature is 96, pulse 74, he is on respirator with blood pressure of 96/40. LUNGS: Bilateral fair airflow. No rhonchi or crackle. HEART: S1 and S2 audible, irregular, rate controlled. ABDOMEN: Obese, soft, nontender. He has fluid oozing from his right knee. Currently, he has hypothermia and blanket on. EXTREMITIES: Bilateral leg edema. LABORATORY DATA: WBC is 19.2, hemoglobin 11.3, hematocrit 34, platelets of 125. PT is 23.2, INR 2.01. Chemistry: Sodium 139, potassium 3.7, chloride 93, CO2 30, BUN 27, creatinine 1.7, blood sugar of 119. Urine tox is negative. X-ray chest done this morning shows patchy opacity right mid to lower lung region representing some combination of atelectasis and moderate sized effusion, minimal left basilar atelectasis. CT scan of the abdomen and pelvis was done. CT of the abdomen and pelvis shows cardiomegaly, atherosclerotic disease, cirrhosis of liver with low volume ascites. ASSESSMENT: 1. Status post cardiac arrest. 2. Respiratory failure. 3. Chronic atrial fibrillation. 4. Dilated cardiomyopathy. 5. History of hypertension. 6. Cirrhosis liver. 7. Rule out anoxic encephalopathy. PLAN: Continue vent support. Patient is currently on meropenem. He is on IV fluid. Cardiology consult by Dr. Meyer has been requested. Clif Lala MD
[2018-02-08 18:35] LABS: VENOUS BLOOD GAS BASE EXCESS 4.2 mmol/L (0.0-2.0); VENOUS BLOOD GAS PO2 41 mm/Hg (30-55); VENOUS BLOOD PH 7.46 (7.32-7.43)
[2018-02-08] MEDS: Mineral Oil/Petrolatum Opht Oint(3.5 gm) OU SCH (18:55)
[2018-02-08 19:17] LABS: ALB/GLOB RATIO 0.9 (1.1-1.8); CALCIUM 7.4 mg/dL (8.4-10.5)
--- NOTE | 2018-02-08 23:14 | CON ---
DATE: 02/08/2018 REQUESTING PHYSICIAN: Dr. Lala. REASON FOR CONSULTATION: Out of hospital arrest. HISTORY OF PRESENT ILLNESS: This is a 67-year-old man well known to us with a history of congestive cardiomyopathy, recurrent heart failure, chronic cellulitis, atrial fibrillation, who suffered hospital arrest yesterday. He had been seen in the office earlier in the day by Dr. Meyer and medications were adjusted for his chronic problems. He apparently collapsed at home and the full details of the events are unclear. According to the emergency squad run-sheet, they feel that they arrived 15 to 20 minutes after his arrest and initiated CPR. He apparently again arrested in the emergency room and was successfully resuscitated. His neurologic status appeared poor, and hypothermia protocol was initiated. He was seen in the CCU, currently on cooling blanket, and intubated and sedated. He is on 20 mcg per minute of epinephrine with a blood pressure of over 100 systolic. PAST MEDICAL HISTORY: His past history is notable for the problems mentioned above. He has had a prior ICD implant. He has had prior prostate cancer treated with seed implant. He also has a history of hypertension and total knee replacement. He has had multiple admissions recently for worsening leg edema, and wound dehiscence and leg cellulitis. CURRENT MEDICATIONS: Include IV propofol, Levophed, meropenem. ALLERGIES: PENICILLIN. SOCIAL HISTORY: He is retired. He does not smoke. He drinks relatively heavily. He lives at home with his . FAMILY HISTORY: Both his parents from age-related illness. REVIEW OF SYSTEMS: A 10-point review of systems was unobtainable at present. PHYSICAL EXAMINATION: GENERAL: He is a chronically ill-appearing middle-aged man. VITAL SIGNS: His blood pressure is 120/60, with a pulse of 70, with ventricular pacing, respirations of 16. He is afebrile. HEENT: He is orally intubated. CHEST: Bilateral scattered rhonchi. HEART: PMI displaced laterally, soft tones noted. ABDOMEN: Soft. Bowel sounds present. EXTREMITIES: Are cool with no evidence of edema. NEUROLOGIC: Unable to assess. PSYCHIATRIC: Unable to assess. DIAGNOSTICS: White count is 19.2, hemoglobin and hematocrit are 11.3 and 34.1, with a platelet count of 125,000. INR is 2.01. Initial blood gas showed pH 7.26, pCO2 of 55, and pO2 of 263. Followup blood gas, 7.30, pCO2 of 57, pO2 of 282. Lactic acid level is 1. Potassium 3.9, sodium is 129, BUN and creatinine 27 and 1.7. Troponin 0.19. BNP 13,600. LDH is 870. Toxicology screen was negative. Electrocardiogram reveals a ventricular paced rhythm. Chest x-ray reveals large cardiac silhouette with an ICD system in place. Patchy infiltrate noted on the right with probable bilateral effusions. IMPRESSION: 1. Out of hospital arrest, etiology unclear. A remote ICD interrogation was performed via the [employer] system, and this showed no documentation of ICD firing or ventricular tachycardia. Pacing and sensing thresholds appeared appropriate. 2. Questionable neurologic status, suspect a fair amount of anoxic encephalopathy given the history of his prolonged down time. 3. Chronic congestive heart failure secondary to severe dilated cardiomyopathy. 4. History of chronic alcohol abuse. 5. Chronic leg cellulitis. RECOMMENDATIONS: Supportive care should continue for now. The hypothermia protocol will be continued and eventual warming performed. Maintenance of adequate blood pressure support with use of Levophed is appropriate at this time. His overall prognosis remains extremely guarded. We will follow along and make further recommendations as needed. Thank you for this consultation Williams Moser MD JOLENE
[2018-02-09 00:48] LABS: VENOUS BLOOD GAS BASE EXCESS 5.5 mmol/L (0.0-2.0); VENOUS BLOOD GAS PO2 37 mm/Hg (30-55)
[2018-02-09 00:49] LABS: BASO # 0.01 K/mm3 (0.0-2.0); BASO % 0.1 % (0.0-3.0); GRAN # 13.37 (1.4-6.5); GRAN % 92.3 % (50.0-68.0); LYMPH # 0.8 (1.2-3.4); LYMPH % 5.3 % (22.0-35.0); MEAN CELL VOLUME 88.8 fl (80.0-105.0); MEAN CORPUSCULAR HEMOGLOBIN 30.3 pg (25.0-35.0); MEAN CORPUSCULAR HGB CONC 34.1 g/dl (31.0-37.0); MEAN PLATELET VOLUME 10.1 fl (7.0-11.0); MONO # 0.3 (0.1-0.6); MONO % 2.3 % (1.0-6.0); RBC 4.29 10^6/uL (3.5-6.1); RED CELL DISTRIBUTION WIDTH 16.7 % (11.5-14.5); WHITE BLOOD COUNT 14.5 10^3/ul (4.5-11.0)
[2018-02-09 01:01] LABS: INR 1.97 (0.93-1.08); PARTIAL THROMBOPLASTIN TIME 42.5 Seconds (25.1-36.5); PROTHROMBIN TIME 22.8 SECONDS (9.4-12.5)
[2018-02-09 01:24] LABS: ALB/GLOB RATIO 0.9 (1.1-1.8); CALCIUM 7.1 mg/dL (8.4-10.5)
[2018-02-09] MEDS: NOREPINEPHRINE BIT/0.9 % NACL 4 MG/250 ML BAG IV PRN ×5 (04:00→23:25)
[2018-02-09 05:25] LABS: ARTERIAL BLOOD GAS HCO3 20.9 mmol/L (21-28); ARTERIAL BLOOD GAS HEMOGLOBIN 12.1 g/dL (11.7-17.4); ARTERIAL BLOOD GAS O2 CAPACITY 16.8 mL/dl (16-24); ARTERIAL BLOOD GAS O2 CONTENT 16.7 ML/dl (15-23); ARTERIAL BLOOD GAS O2 SAT 99.4 % (95-98); ARTERIAL BLOOD GAS PCO2 25 mm/Hg (35-45); ARTERIAL BLOOD GAS PH 7.53 (7.35-7.45); ARTERIAL BLOOD GAS TCO2 21.7 mmol.L (22-28)
[2018-02-09] MEDS: Propofol 10 mg/ml 1,000 MG/100 ML VIAL IV PRN ×3 (05:43→19:00)
[2018-02-09] MEDS: Sodium Chloride 0.9% 1,000 ML IV SCH ×2 (05:45→06:09)
[2018-02-09] MEDS ORDERED: levETIRAcetam 500mg IVPB 500 MG/100 ML BAG IVPB STA (05:56)
[2018-02-09 05:57] LABS: ALB/GLOB RATIO 0.9 (1.1-1.8); ALBUMIN 1.9 g/dL (3.0-4.8)
[2018-02-09] MEDS ORDERED: levETIRAcetam 500mg IVPB 500 MG/100 ML BAG IVPB SCH (06:00)
[2018-02-09] MEDS: Mineral Oil/Petrolatum Opht Oint(3.5 gm) OU SCH ×4 (06:07→17:03)
[2018-02-09 06:11] LABS: BASO # 0.01 K/mm3 (0.0-2.0); BASO % 0.1 % (0.0-3.0); GRAN # 11.33 (1.4-6.5); GRAN % 91.9 % (50.0-68.0); HEMOGLOBIN 12.4 g/dL (14.0-18.0); LYMPH # 0.7 (1.2-3.4); LYMPH % 5.4 % (22.0-35.0); MEAN CELL VOLUME 87.2 fl (80.0-105.0); MEAN CORPUSCULAR HEMOGLOBIN 29.9 pg (25.0-35.0); MEAN CORPUSCULAR HGB CONC 34.3 g/dl (31.0-37.0); MEAN PLATELET VOLUME 9.9 fl (7.0-11.0); MONO # 0.3 (0.1-0.6); MONO % 2.6 % (1.0-6.0); RBC 4.15 10^6/uL (3.5-6.1); RED CELL DISTRIBUTION WIDTH 16.7 % (11.5-14.5); WHITE BLOOD COUNT 12.3 10^3/ul (4.5-11.0)
[2018-02-09 06:12] LABS: FREE T4 2.35 ng/dL (0.78-2.19)
--- NOTE | 2018-02-09 06:54 | CP.PCM.PN ---
<Maureen Chong - Last Filed: 02/09/18 06:54> Subjective - Date & Time of Evaluation Date of Evaluation: 02/09/18 Time of Evaluation: 06:52 - Subjective Subjective: Mr. Rajput was seen and examined at the bedside in ICU. He remains on mechanical ventilator with GCS 3T, no corneal reflex no gag reflex and no response to pain stimuli.However with sluggish reaction to pupils, 5 mm in size. He is currently on vasopressors (for blood pressure) and propofol drip( sedation). He is currently on the warming stage of code freeze. Repeat CT scan of the head showed no acute intracranial hemorrhage. Moderate chronic white matter ischemic changes with scattered deep and subcortical white matter and basal nuclei ischemic changes. Moderate generalized volume loss. Right frontotemporal and left temporoparietal scalp swelling. Objective - Vital Signs/Intake and Output Vital Signs (last 24 hours): Temp Pulse Resp BP Pulse Ox 89.1 F L 70 18 110/66 100 02/08/18 22:22 02/08/18 22:22 02/08/18 22:22 02/09/18 00:21 02/08/18 22:22 Intake and Output: 02/08/18 02/09/18 18:59 06:59 Intake Total 2540 1008 Output Total 1200 Balance 1340 1008 - Medications Medications: Current Medications Artificial Tears (Artificial Tears Opht Oint) 0 gm OU Q6 KELLY Last Admin: 02/09/18 06:12 Dose: 1 applic Heparin Sodium (Porcine) (Heparin) 5,000 units SC Q12 KELLY PRN Reason: Protocol Last Admin: 02/08/18 21:05 Dose: 5,000 units Propofol (Diprivan) 1,000 mg in 100 mls @ 3 mls/hr IV .Q24H PRN; Protocol; 5 MCG/KG/MIN PRN Reason: TITRATE PER MD ORDER Last Admin: 02/09/18 05:43 Dose: 25 mcg/kg/min, 15 mls/hr NOREPINEPHRINE BIT/0.9 % NACL (Levophed 4 Mg/ 250 Ml Ns Premixed) 4 mg in 250 mls @ 15 mls/hr IV .[id number] PRN; Protocol; 4 MCG/MIN PRN Reason: TITRATE PER MD ORDER Last Admin: 02/09/18 06:08 Dose: 15 mcg/min, 56.25 mls/hr Sodium Chloride (Sodium Chloride 0.9%) 1,000 mls @ 140 mls/hr IV .Q7H9M KELLY Last Admin: 02/09/18 06:09 Dose: 140 mls/hr Meropenem 500 mg/ Sodium (Chloride) 50 mls @ 100 mls/hr IVPB Q12 KELLY PRN Reason: Protocol Stop: 02/17/18 10:01 Last Admin: 02/08/18 21:05 Dose: 100 mls/hr Acetaminophen (Ofirmev) 1,000 mg in 100 mls @ 400 mls/hr IVPB Q6H PRN PRN Reason: Rigors Stop: 02/10/18 08:04 Last Admin: 02/08/18 09:35 Dose: 400 mls/hr Fentanyl Citrate (Fentanyl Citrate/Sodium Chloride 1 Mg/100 Ml) 1,000 mcg in 100 mls @ 2 mls/hr IV .Q24H PRN; Protocol; 20 MCG/HR PRN Reason: TITRATE PER MD ORDER Last Titration: 02/09/18 06:13 Dose: 2 mcg/hr, 0.2 mls/hr Cisatracurium Besylate 200 mg/ (Sodium Chloride) 250 mls @ 7.79 mls/hr IV .Q24H PRN; Protocol; 1 MCG/KG/MIN PRN Reason: TITRATE PER MD ORDER Last Titration: 02/08/18 17:32 Dose: 1 mcg/kg/min, 7.79 mls/hr Vasopressin 20 units/ Sodium (Chloride) 101 mls @ 9.09 mls/hr IV .Q11H7M KELLY; 0.03 U/MIN PRN Reason: Protocol Last Admin: 02/09/18 00:21 Dose: 9.09 mls/hr Levetiracetam 1,000 mg/ Sodium (Chloride) 110 mls @ 460 mls/hr IV Q12H KELLY - Labs Labs: 02/09/18 05:00 02/09/18 05:00 PT 22.8 SECONDS (9.4-12.5) H 02/08/18 23:55 INR 1.97 (0.93-1.08) H 02/08/18 23:55 APTT 42.5 Seconds (25.1-36.5) H 02/08/18 23:55 - Constitutional Appears: No Acute Distress - Head Exam Head Exam: NORMAL INSPECTION - Eye Exam Pupil Exam: Mydriatic Additional comments: 5 mm. - Neurological Exam Neuro motor strength exam: Left Upper Extremity: 0, Right Upper Extremity: 0, Left Lower Extremity: 0, Right Lower Extremity: 0 Additional comments: GCS- 3T Assessment and Plan (1) Anoxic brain injury Assessment & Plan: Case discussed with Dr. Arias, continue all current medical regimen. Recommend to increase keppra at 1000 mg IVPB, repeat CT of the head without contrast and CT of the chest without contrast chen. after warming stage. Pending EEG. Status: Acute <Harjeet Ariasutami - Last Filed: 02/10/18 12:30> Objective - Vital Signs/Intake and Output Vital Signs (last 24 hours): Temp Pulse Resp BP Pulse Ox 98.6 F 70 20 115/79 100 02/10/18 10:50 02/10/18 10:50 02/10/18 08:23 02/10/18 10:00 02/10/18 10:50 Intake and Output: 02/10/18 02/10/18 06:59 18:59 Intake Total 1254 3330 Output Total 450 Balance 1254 2880 - Medications Medications: Current Medications Artificial Tears (Artificial Tears Opht Oint) 0 gm OU Q6 KELLY Last Admin: 02/10/18 11:57 Dose: 1 applic Heparin Sodium (Porcine) (Heparin) 5,000 units SC Q12 KELLY PRN Reason: Protocol Last Admin: 02/10/18 09:14 Dose: 5,000 units Propofol (Diprivan) 1,000 mg in 100 mls @ 3 mls/hr IV .Q24H PRN; Protocol; 5 MCG/KG/MIN PRN Reason: TITRATE PER MD ORDER Last Admin: 02/10/18 06:08 Dose: 5 mcg/kg/min, 3 mls/hr NOREPINEPHRINE BIT/0.9 % NACL (Levophed 4 Mg/ 250 Ml Ns Premixed) 4 mg in 250 mls @ 15 mls/hr IV .[id number] PRN; Protocol; 4 MCG/MIN PRN Reason: TITRATE PER MD ORDER Last Titration: 02/10/18 07:38 Dose: 20 mcg/min, 75 mls/hr Fentanyl Citrate (Fentanyl Citrate/Sodium Chloride 1 Mg/100 Ml) 1,000 mcg in 100 mls @ 2 mls/hr IV .Q24H PRN; Protocol; 20 MCG/HR PRN Reason: TITRATE PER MD ORDER Last Titration: 02/09/18 19:00 Dose: Infused Cisatracurium Besylate 200 mg/ (Sodium Chloride) 250 mls @ 7.79 mls/hr IV .Q24H PRN; Protocol; 1 MCG/KG/MIN PRN Reason: TITRATE PER MD ORDER Last Titration: 02/09/18 20:44 Dose: Infused Vasopressin 20 units/ Sodium (Chloride) 101 mls @ 9.09 mls/hr IV .Q11H7M KELLY; 0.03 U/MIN PRN Reason: Protocol Last Admin: 02/09/18 22:15 Dose: 9.09 mls/hr Linezolid (Zyvox 600mg/300ml D5w) 600 mg in 300 mls @ 200 mls/hr IVPB Q12 KELYL PRN Reason: Protocol Stop: 02/18/18 10:01 Last Admin: 02/10/18 09:15 Dose: 200 mls/hr Midazolam 100 mg/100ml in NS (Midazolam 100 Mg/100ml In Ns) 100 mg in 100 mls @ 1 mls/hr IV .Q24H PRN; Protocol; 1 MG/HR PRN Reason: Agitation Last Titration: 02/09/18 23:00 Dose: 3 mg/hr, 3 mls/hr Dextrose/Sodium Chloride (Dextrose 5%/0.9% Ns 1000 Ml) 1,000 mls @ 140 mls/hr IV .Q7H9M KELLY Last Admin: 02/10/18 06:08 Dose: 140 mls/hr Valproate Sodium 1,000 mg/ (Sodium Chloride) 110 mls @ 100 mls/hr IVPB Q12 KELLY Last Admin: 02/10/18 09:13 Dose: 100 mls/hr Levetiracetam 1,500 mg/ Sodium (Chloride) 115 mls @ 460 mls/hr IV Q12H KELLY Aztreonam (Azactam 1 Gm) 100 mls @ 100 mls/hr IVPB Q8 KELLY PRN Reason: Protocol Stop: 02/17/18 11:31 Last Admin: 02/10/18 11:56 Dose: 100 mls/hr Doxycycline Hyclate 100 mg/ (Sodium Chloride) 100 mls @ 100 mls/hr IVPB Q12 KELLY PRN Reason: Protocol Last Admin: 02/10/18 11:53 Dose: 100 mls/hr Potassium Chloride (Potassium Chloride 20 Meq/100 Ml) 20 meq in 100 mls @ 50 mls/hr IVPB ONCE ONE Stop: 02/10/18 13:45 Last Admin: 02/10/18 12:14 Dose: 50 mls/hr - Labs Labs: 02/10/18 06:00 02/10/18 06:00 PT 22.8 SECONDS (9.4-12.5) H 02/08/18 23:55 INR 1.97 (0.93-1.08) H 02/08/18 23:55 APTT 42.5 Seconds (25.1-36.5) H 02/08/18 23:55
[2018-02-09] MEDS: Meropenem 500 MG in Sodium Chloride 0.9% 50 ML IVPB SCH ×2 (09:05→21:33)
[2018-02-09] MEDS: Linezolid 600 mg in D5W 300 ml 600 MG/300 ML BAG IVPB SCH ×2 (09:06→21:33)
--- NOTE | 2018-02-09 09:51 | RAD ---
HISTORY: intubated COMPARISON: No prior. FINDINGS: T tip lies 4 cm above cindy. NGT tip not visualized well below EG junction. No change right IJ central line. LUNGS: Re- demonstrated is patchy opacity right mid to lower lung zone consistent with some combination of atelectasis/ infiltrate and moderate-sized effusion small to medium size left-sided effusion and suspected left basilar atelectasis. PLEURA: As above. No pneumothorax apparent. CARDIOVASCULAR: Heart remains enlarged situ single lead pacemaker/ defibrillator. . OSSEOUS STRUCTURES: No significant abnormalities. VISUALIZED UPPER ABDOMEN: Normal. OTHER FINDINGS: None. IMPRESSION: Support lines and tubes as above. Re- demonstrated is patchy opacity right mid to lower lung zone consistent with some combination of atelectasis/ infiltrate and moderate-sized effusion small to medium size left-sided effusion and suspected left basilar atelectasis.
[2018-02-09] MEDS ORDERED: Midazolam 2 MG/2 ML VIAL ONE (11:08)
[2018-02-09] MEDS ORDERED: Midazolam 2 MG/2 ML VIAL IVP ONE (11:12)
--- NOTE | 2018-02-09 11:17 | PN ---
DATE: 02/09/2018 SUBJECTIVE: The patient is in bed, in no acute distress. He remains intubated on a ventilator. The patient has hypothermia. OBJECTIVE: VITAL SIGNS: Temperature of 89; blood pressure is 110/60; respiratory rate, on the vent; heart rate of 70. HEENT: Examination is unremarkable. The ET tube is in place. NECK: Supple. LUNGS: Have decreased breath sounds. HEART: Normal S1, S2. . ABDOMEN: Soft, nontender. No rebound or guarding. DATA: Laboratory examination reveals a white count of 12,300, hemoglobin of 12, platelets of 146. Coagulation is noted and BUN of 27, creatinine of 1.7. Calcium is low. The patient's procalcitonin is 0.14. LFTs are normal. Urinalysis is unremarkable. Microbiology reveals the blood cultures are negative. The patient's CAT scan of the chest and CAT scan of the abdomen is reviewed. ASSESSMENT AND PLAN: This is a 67-year-old male, recent hospitalization with congestive heart failure, hypertension, chronic obstructive lung disease, atrial fibrillation, pacemaker, methicillin resistant Staphylococcus aureus and Pseudomonas, right leg cellulitis and history of prostate cancer, peripheral vascular disease, admitted after cardiac arrest with acute kidney injury. The patient with healthcare-associated pneumonia; respiratory failure, intubated on the ventilator. Normal procalcitonin, status post cardiac arrest x2 and acute kidney injury, on Zyvox, meropenem day #2 with a normal procalcitonin level and negative blood cultures. We will check on the sputum culture, urine culture and MRSA screen. Overall prognosis is quite poor and extensive discussion with the patient's this morning who understands the severity of his condition and 's consultation is reviewed. In this patient with a chronic congestive heart failure and severe dilated cardiomyopathy, long history of alcohol abuse, no evidence of cellulitis of the lower extremities at this time, on was discontinued by the pharmacy. We will reorder it again. Jesús Bernabe MD
[2018-02-09] MEDS ORDERED: Sodium Chloride 0.9% 1,000 ML IV STA (11:18)
[2018-02-09] MEDS: Midazolam 100 mg/100ml in NS 100 MG/100 ML SOL IV PRN (11:49)
[2018-02-09] MEDS: Dextrose 5%/0.9% NS 1,000 ML IV SCH ×2 (12:41→20:44)
[2018-02-09] MEDS ORDERED: Magnesium Sulfate 1 gm in D5W 1 GM/100 ML BAG IVPB ONE (13:34)
[2018-02-09] MEDS ORDERED: Valproate 1,500 MG in Sodium Chloride 0.9% 100 ML IVPB ONE (14:00)
--- NOTE | 2018-02-09 14:16 | PN ---
DATE: 02/09/2018 FACILITIES CUSTODIAN NOTE SUBJECTIVE: The patient is sedated and unresponsive on the ventilator with a FiO2 of 60%. He continues to require Diprivan, Levophed, vasopressin and fentanyl. The patient's Nimbex has been stopped. He is through the cooling protocol. The patient's family is at bedside. O2 saturation is good with a FiO2 of 60%. PHYSICAL EXAMINATION: VITAL SIGNS: Note that his temperature is 98.5, his pulse is 70, respirations are 18 and BP is 110/66. O2 saturation is 100%. HEENT: Head is atraumatic, normocephalic. Eyes are reactive to light. Ears, nose and throat seemed to be within normal limits. NECK: Supple. No JVD. No thyroid enlargement or lymph nodes. HEART: Has regular rate and rhythm. Normal S1, S2. LUNGS: Reveal bilateral rhonchi. ABDOMEN: Soft. Decreased bowel sounds. GENITALIA: Deferred. RECTAL: Deferred. MUSCULOSKELETAL: No joint deformities. EXTREMITIES: Reveal positive edema. NEUROLOGIC: The patient is unresponsive on the ventilator. DATA: As far as his laboratories are concerned, his white count is 12.3, hemoglobin is 12.4, hematocrit 36.2 with platelets of 146,000. The patient's arterial blood gas reveals a pH of 7.53, pCO2 of 25, pO2 of 147. Sodium is 129, potassium 3.7, chloride is 98 with CO2 of 22, BUN of 27, creatinine of 1.7 and a glucose of 100. As far as the patient's chest x-ray, it reveals bilateral infiltrates and bilateral effusions. IMPRESSION: This patient is post cardiac arrest with ventricular tachycardia and pulseless electrical activity. He had CPR performed. The patient had respiratory failure requiring ventilator support with a FiO2 of 60%. He is hypotensive with chest x-ray showing bilateral infiltrates and pleural effusions, most likely bilateral pneumonia. The patient almost likely also has sepsis with a history of atrial fibrillation, hypertension, cardiomyopathy and has automated implantable cardioverter-defibrillator. The patient has lower extremity cellulitis and hyponatremia as well as renal insufficiency and anemia. PLAN: Note that as far as our plan, we will continue with ventilator support and decrease FiO2 as needed or as tolerated, I should say. We will follow his chest x-ray and arterial blood gas. The patient will continue with Levophed, vasopressin, fentanyl and Diprivan. Nimbex has been discontinued. We will continue with IV fluids. The patient is on antibiotics of meropenem and note that he is on Keppra as well. We will continue to treat aggressively. Note that the patient's family is at bedside. Family has been updated as to the patient's critical status and poor prognosis. Reviewed what the patient's diagnoses are and therapy has been given, the patient's family understands completely. They understand that the patient is critically ill and how unstable he is. Blue Benites MD
[2018-02-09] MEDS ORDERED: Sodium Chloride 0.9% 300 ML IV STA (14:48)
--- NOTE | 2018-02-09 15:13 | PN ---
DATE: 02/09/2018 SUBJECTIVE: The patient is intubated, not responsive. PHYSICAL EXAMINATION: VITAL SIGNS: Temperature is 99.3, pulse of 72, blood pressure is 105/70, respirations 18. GENERAL: The patient is lying in bed, flat, comfortable. HEENT: Positive ETT. No oral lesion. Anicteric sclerae. Moist mucosa. NECK: Right-sided TLC. No JVD, adenopathy, or thyromegaly. CARDIOVASCULAR: S1 and S2, regular. No murmurs, rubs, or gallops. LUNGS: Clear to auscultation bilaterally. No wheeze, rales, or rhonchi. ABDOMEN: Bowel sounds are positive, soft, nontender and nondistended. EXTREMITIES: There is trace edema in bilateral arms. LABORATORY DATA: White count of 12.3, hemoglobin is 12.4. Sodium is 129, creatinine is 1.7. ASSESSMENT: 1. Cardiac arrest. 2. Probable anoxic encephalopathy. 3. Respiratory failure. 4. Atrial fibrillation. 5. Dilated cardiomyopathy. 6. Cirrhosis of the liver. 7. PENICILLIN ALLERGY. 8. Hyponatremia. 9. Acute kidney injury. PLAN: The patient is currently critically ill, he is having possible seizures. He is being followed by Neurology. The patient is on fentanyl, he is on heparin for DVT prophylaxis. The patient is continuing on meropenem for antibiotics. he is on IV norepinephrine. He is going to continue on vasopressin. The patient is on linezolid for sepsis. The patient's hyponatremia is secondary to the patient's poor cardiac output. This is a poor prognostic sign. The sodium has been stable. The patient's creatinine is stable at 1.7. He remains on a respirator for his respiratory failure. Prognosis is poor. Gerardo Mccormack MD
--- NOTE | 2018-02-09 16:34 | PN ---
DATE: 02/09/2018 SUBJECTIVE: The patient is lying in bed in the CCU. He is going through the rewarming process of the hypothermia protocol. He remains paralyzed and sedated. He remains on the ventilator. Vasopressin was added for hemodynamic support overnight. CURRENT MEDICATIONS: Include cisatracurium, Diprivan, fentanyl, subcutaneous heparin, Keppra, Levophed 15 mcg per minute, meropenem, Valium infusion, vasopressin 0.03 units per minute, and Zyvox. PHYSICAL EXAMINATION: GENERAL: He is a chronically ill-appearing middle-aged male. VITAL SIGNS: His blood pressure is 105/70 with a pulse of 70 with ventricular pacing, respirations are 16. Current temperature 99.3. HEENT: He is orally intubated. NECK: No JVD. CHEST: Bilateral scattered rhonchi. HEART: PMI displaced laterally with soft tones noted. ABDOMEN: Soft, protuberant. Normoactive bowel sounds. EXTREMITIES: Legs were wrapped. Peripheral edema is present. DIAGNOSTIC DATA: White count is 12.3, hemoglobin and hematocrit are 12.4 and 36.2, platelet count 146,000. Recent blood gas showed pH of 7.53, pCO2 of 25, and pO2 of 147. Sodium is 129, potassium is 3.7, BUN and creatinine 27 and 1.7. Chest x-ray reveals patchy infiltrate on the right with bilateral effusions. Interrogation of his ICD was performed yesterday. No dysrhythmias were documented and no ICD firing occurred. His volume status appears markedly elevated based upon ICD parameters. This was reviewed in detail with [employer] sales representative. IMPRESSION: 1. Status post [id number] arrest, etiology uncertain. 2. Severe congestive cardiomyopathy. 3. Recurrent congestive heart failure. 4. Chronic atrial fibrillation. 5. Severe leg edema with cellulitis and with wound dehiscence. RECOMMENDATIONS: Continued supportive care is advised. Weaning off his paralytic agents and sedation would be appropriate at this time. Monitoring his neurologic status should continue. Continued supportive care is planned. His overall prognosis will depend upon degree of recovery of his neurologic status. This was discussed with his via phone again earlier today. We will continue to follow and make further recommendations as appropriate. Williams Moser MD MTDD
[2018-02-09] MEDS: levETIRAcetam 1,000 MG in Sodium Chloride 0.9% 100 ML IV SCH (18:20)
[2018-02-09] MEDS: Valproate 1,000 MG in Sodium Chloride 0.9% 100 ML IVPB SCH (21:32)
[2018-02-10] MEDS: Mineral Oil/Petrolatum Opht Oint(3.5 gm) OU SCH ×4 (01:09→18:36)
[2018-02-10 05:41] LABS: ARTERIAL BLOOD GAS HCO3 20.3 mmol/L (21-28); ARTERIAL BLOOD GAS HEMOGLOBIN 11.3 g/dL (11.7-17.4); ARTERIAL BLOOD GAS O2 SAT 99.8 % (95-98); ARTERIAL BLOOD GAS PCO2 26 mm/Hg (35-45); ARTERIAL BLOOD GAS TCO2 21.1 mmol.L (22-28)
[2018-02-10] MEDS: Dextrose 5%/0.9% NS 1,000 ML IV SCH ×2 (06:08→20:00)
[2018-02-10] MEDS: Propofol 10 mg/ml 1,000 MG/100 ML VIAL IV PRN (06:08)
[2018-02-10] MEDS: levETIRAcetam 1,000 MG in Sodium Chloride 0.9% 100 ML IV SCH (06:13)
[2018-02-10] MEDS: NOREPINEPHRINE BIT/0.9 % NACL 4 MG/250 ML BAG IV PRN ×4 (06:14→22:03)
[2018-02-10 06:49] LABS: GRAN # 11.1 (1.4-6.5); HEMOGLOBIN 11.3 g/dL (14.0-18.0); LYMPH # 0.9 (1.2-3.4); LYMPH % 7.4 % (22.0-35.0); MEAN CELL VOLUME 88.1 fl (80.0-105.0); MEAN CORPUSCULAR HEMOGLOBIN 30.5 pg (25.0-35.0); MEAN CORPUSCULAR HGB CONC 34.7 g/dl (31.0-37.0); MEAN PLATELET VOLUME 9.9 fl (7.0-11.0); MONO # 0.6 (0.1-0.6); MONO % 4.6 % (1.0-6.0); RBC 3.7 10^6/uL (3.5-6.1); WHITE BLOOD COUNT 12.6 10^3/ul (4.5-11.0)
[2018-02-10 08:08] LABS: ALB/GLOB RATIO 0.9 (1.1-1.8); ALBUMIN 1.8 g/dL (3.0-4.8); CALCIUM 6.8 mg/dL (8.4-10.5)
[2018-02-10] MEDS: Valproate 1,000 MG in Sodium Chloride 0.9% 100 ML IVPB SCH ×2 (09:13→22:04)
[2018-02-10] MEDS: Linezolid 600 mg in D5W 300 ml 600 MG/300 ML BAG IVPB SCH ×2 (09:15→23:25)
[2018-02-10] MEDS: Meropenem 500 MG in Sodium Chloride 0.9% 50 ML IVPB SCH (09:17)
[2018-02-10] MEDS ORDERED: levETIRAcetam 1,500 MG in Sodium Chloride 0.9% 100 ML IV SCH (10:00)
[2018-02-10] MEDS ORDERED: levETIRAcetam 500 MG in Sodium Chloride 0.9% 100 ML IV ONE (10:00)
--- NOTE | 2018-02-10 10:04 | RAD ---
HISTORY: intubated COMPARISON: 02/09/2018 FINDINGS: LUNGS: Slight improvement in right lower lobe infiltrate PLEURA: No significant pleural effusion identified, no pneumothorax apparent. CARDIOVASCULAR: Moderate to severe cardiomegaly. Vascular congestion OSSEOUS STRUCTURES: No significant abnormalities. VISUALIZED UPPER ABDOMEN: Normal. OTHER FINDINGS: None. IMPRESSION: Moderate to severe cardiomegaly. Slight improvement in vascular congestion
--- NOTE | 2018-02-10 10:24 | CP.PCM.PN ---
Subjective - Date & Time of Evaluation Date of Evaluation: 02/10/18 Time of Evaluation: 07:00 - Subjective Subjective: On mult. pressors, vent, sedation in CCU. Not responsive. I spoke with his and father at the bedside. V/S noted. V. Paced. PE: Lungs: rhonchi Cor: S1S2 Abd.: soft Ext.: + edema and discoloration Neuro.: sedated I/O= 3330/450 Labs noted: K+= 3.5, Cr.= 1.9 BC X2 NG at 48 hrs. CXR: slight improvement Objective - Vital Signs/Intake and Output Vital Signs (last 24 hours): Temp Pulse Resp BP Pulse Ox 99.0 F 70 18 101/45 L 100 02/10/18 03:00 02/10/18 06:00 02/09/18 12:28 02/10/18 03:01 02/10/18 03:00 Intake and Output: 02/10/18 02/10/18 06:59 18:59 Intake Total 1254 3330 Output Total 450 Balance 1254 2880 - Medications Medications: Current Medications Artificial Tears (Artificial Tears Opht Oint) 0 gm OU Q6 KELLY Last Admin: 02/10/18 06:08 Dose: 1 applic Heparin Sodium (Porcine) (Heparin) 5,000 units SC Q12 KELLY PRN Reason: Protocol Last Admin: 02/10/18 09:14 Dose: 5,000 units Propofol (Diprivan) 1,000 mg in 100 mls @ 3 mls/hr IV .Q24H PRN; Protocol; 5 MCG/KG/MIN PRN Reason: TITRATE PER MD ORDER Last Admin: 02/10/18 06:08 Dose: 5 mcg/kg/min, 3 mls/hr NOREPINEPHRINE BIT/0.9 % NACL (Levophed 4 Mg/ 250 Ml Ns Premixed) 4 mg in 250 mls @ 15 mls/hr IV .[id number] PRN; Protocol; 4 MCG/MIN PRN Reason: TITRATE PER MD ORDER Last Titration: 02/10/18 07:38 Dose: 20 mcg/min, 75 mls/hr Meropenem 500 mg/ Sodium (Chloride) 50 mls @ 100 mls/hr IVPB Q12 KELLY PRN Reason: Protocol Stop: 02/17/18 10:01 Last Admin: 02/10/18 09:17 Dose: 100 mls/hr Fentanyl Citrate (Fentanyl Citrate/Sodium Chloride 1 Mg/100 Ml) 1,000 mcg in 100 mls @ 2 mls/hr IV .Q24H PRN; Protocol; 20 MCG/HR PRN Reason: TITRATE PER MD ORDER Last Titration: 02/09/18 19:00 Dose: Infused Cisatracurium Besylate 200 mg/ (Sodium Chloride) 250 mls @ 7.79 mls/hr IV .Q24H PRN; Protocol; 1 MCG/KG/MIN PRN Reason: TITRATE PER MD ORDER Last Titration: 02/09/18 20:44 Dose: Infused Vasopressin 20 units/ Sodium (Chloride) 101 mls @ 9.09 mls/hr IV .Q11H7M KELLY; 0.03 U/MIN PRN Reason: Protocol Last Admin: 02/09/18 22:15 Dose: 9.09 mls/hr Linezolid (Zyvox 600mg/300ml D5w) 600 mg in 300 mls @ 200 mls/hr IVPB Q12 KELLY PRN Reason: Protocol Stop: 02/18/18 10:01 Last Admin: 02/10/18 09:15 Dose: 200 mls/hr Midazolam 100 mg/100ml in NS (Midazolam 100 Mg/100ml In Ns) 100 mg in 100 mls @ 1 mls/hr IV .Q24H PRN; Protocol; 1 MG/HR PRN Reason: Agitation Last Titration: 02/09/18 23:00 Dose: 3 mg/hr, 3 mls/hr Dextrose/Sodium Chloride (Dextrose 5%/0.9% Ns 1000 Ml) 1,000 mls @ 140 mls/hr IV .Q7H9M KELLY Last Admin: 02/10/18 06:08 Dose: 140 mls/hr Valproate Sodium 1,000 mg/ (Sodium Chloride) 110 mls @ 100 mls/hr IVPB Q12 KELLY Last Admin: 02/10/18 09:13 Dose: 100 mls/hr Valproate Sodium 500 mg/ (Sodium Chloride) 105 mls @ 100 mls/hr IVPB ONCE ONE Stop: 02/10/18 11:02 Levetiracetam 500 mg/ Sodium (Chloride) 105 mls @ 460 mls/hr IV ONCE ONE Stop: 02/10/18 10:13 Levetiracetam 1,500 mg/ Sodium (Chloride) 115 mls @ 460 mls/hr IV Q12H KELLY - Labs Labs: 02/10/18 06:00 02/10/18 06:00 PT 22.8 SECONDS (9.4-12.5) H 02/08/18 23:55 INR 1.97 (0.93-1.08) H 02/08/18 23:55 APTT 42.5 Seconds (25.1-36.5) H 02/08/18 23:55 Assessment and Plan - Assessment and Plan (Free Text) Assessment: S/P cardiac arrest at home with prolonged down time Anoxic encephalopathy Acute on chroni kidney disease CCM, severe, etoh related Chronic CHF Bilat. LE cellulitis and non-healing wound LLE ICD/NSVT Prostate cancer, seed implants Right TKR Chronic ETOH, recently stopped 12/25 Former Smoker Plan: Continue support: EEG and F/U CT head planned for later today. As per Neuro., Intensivists, Dr. Mccormack, Palliative Care, ID I spoke with his and father at the bedside. Monitor: labs, I/O, sats., neuro status, etc. Will follow Poor prognosis for neuro recovery noted.
--- NOTE | 2018-02-10 10:28 | CP.PCM.CON ---
History of Present Illness - History of Present Illness History of Present Illness: Palliative consult requested by Dr. Everette Mccormack Reason: Goals of care 67 year old male who had male who was seen at lock setter office on 02/24, then later in the day he passed out hitting his head and suffering cardiopulmonary arrest. EMS was not called immediately, they arrived 20 minute later and initiated ACLS. He arrested a second time after arriving in the emergency room. He remains intubated and is on vasopressors for hypotension. He is s/p cooling protocol. CT of head done 02/08/18 showed no acute hemorrhage, chronic white matter changes with scattered deep subcortical white and basal nuclei ischemic changes, generalized volume loss, right frontotermporal and temporal scalp swelling. Vital signs: P 74, BP 100/60, T98, Vent at 20 RPM PMHx: Cardiomyopathy, s/p AICD, CHF,HTN,A Fib on Eliquis, bilateral lower extremity cellulitis,prostate cancer s/p seed implant, s/p right knee replacement, left hip surgery. Social History: Non smoker,daily alcohol intake(vodka/beer), past use of cocaine. lives with spouse. Family History: Non contributory. Advance Care Planning: The patient does not have an Advanced Directive. Review of Systems: As per HPI, the patient is intubated and sedated, unable to obtain complete review. Past Patient History - Infectious Disease Hx of Infectious Diseases: MRSA - Past Social History Smoking Status: Unknown If Ever Smoked - CARDIAC Hx Cardiac Disorders: Yes Hx Congestive Heart Failure: Yes Hx Hypertension: Yes - PULMONARY Hx Chronic Obstructive Pulmonary Disease (COPD): Yes - NEUROLOGICAL Hx Neurological Disorder: No - HEENT Hx HEENT Problems: No - RENAL Hx Chronic Kidney Disease: No - ENDOCRINE/METABOLIC Hx Endocrine Disorders: No - HEMATOLOGICAL/ONCOLOGICAL Hx Blood Disorders: No - INTEGUMENTARY Hx Dermatological Problems: Yes Other/Comment: BILATERAL LE EDEMA PITING +4 EXTENDING TO TESTICLES AND LOWER TO MID BACK,FLUSHED SKIN.MELISSA COLORED SKIN.'. RIGHT LEG MORE SWOLLEN THAN LEFT WITH AN OPENED WOUND JUST BELOW KNEE BIG A QUARTER WITH SMOOTH EDGES.' LEFT LEG WITH DRY THICKENED FLUSHED TO RED COLORED SKIN. - MUSCULOSKELETAL/RHEUMATOLOGICAL Hx Musculoskeletal Disorders: Yes Hx Degenerative Joint Disease: Yes Hx Falls: Yes (fell 11/29/17) Hx Unsteady Gait: Yes - GASTROINTESTINAL Hx Gastrointestinal Disorders: No - GENITOURINARY/GYNECOLOGICAL Hx Prostate Problems: Yes (Seeds in prostate) - PSYCHIATRIC Hx Psychophysiologic Disorder: No - SURGICAL HISTORY Hx Joint Replacement: Yes (right knee left hip) - ANESTHESIA Hx Anesthesia Reactions: No Meds Allergies/Adverse Reactions: Allergies Allergy/AdvReac Type Severity Reaction Status Date / Time Penicillins Allergy Mild ANAPHYLAXIS Verified 01/28/18 19:26 - Medications Medications: Current Medications Artificial Tears (Artificial Tears Opht Oint) 0 gm OU Q6 KELLY Last Admin: 02/10/18 06:08 Dose: 1 applic Heparin Sodium (Porcine) (Heparin) 5,000 units SC Q12 KELLY PRN Reason: Protocol Last Admin: 02/10/18 09:14 Dose: 5,000 units Propofol (Diprivan) 1,000 mg in 100 mls @ 3 mls/hr IV .Q24H PRN; Protocol; 5 MCG/KG/MIN PRN Reason: TITRATE PER MD ORDER Last Admin: 02/10/18 06:08 Dose: 5 mcg/kg/min, 3 mls/hr NOREPINEPHRINE BIT/0.9 % NACL (Levophed 4 Mg/ 250 Ml Ns Premixed) 4 mg in 250 mls @ 15 mls/hr IV .[id number] PRN; Protocol; 4 MCG/MIN PRN Reason: TITRATE PER MD ORDER Last Titration: 02/10/18 07:38 Dose: 20 mcg/min, 75 mls/hr Meropenem 500 mg/ Sodium (Chloride) 50 mls @ 100 mls/hr IVPB Q12 KELLY PRN Reason: Protocol Stop: 02/17/18 10:01 Last Admin: 02/10/18 09:17 Dose: 100 mls/hr Fentanyl Citrate (Fentanyl Citrate/Sodium Chloride 1 Mg/100 Ml) 1,000 mcg in 100 mls @ 2 mls/hr IV .Q24H PRN; Protocol; 20 MCG/HR PRN Reason: TITRATE PER MD ORDER Last Titration: 02/09/18 19:00 Dose: Infused Cisatracurium Besylate 200 mg/ (Sodium Chloride) 250 mls @ 7.79 mls/hr IV .Q24H PRN; Protocol; 1 MCG/KG/MIN PRN Reason: TITRATE PER MD ORDER Last Titration: 02/09/18 20:44 Dose: Infused Vasopressin 20 units/ Sodium (Chloride) 101 mls @ 9.09 mls/hr IV .Q11H7M KELLY; 0.03 U/MIN PRN Reason: Protocol Last Admin: 02/09/18 22:15 Dose: 9.09 mls/hr Linezolid (Zyvox 600mg/300ml D5w) 600 mg in 300 mls @ 200 mls/hr IVPB Q12 KELLY PRN Reason: Protocol Stop: 02/18/18 10:01 Last Admin: 02/10/18 09:15 Dose: 200 mls/hr Midazolam 100 mg/100ml in NS (Midazolam 100 Mg/100ml In Ns) 100 mg in 100 mls @ 1 mls/hr IV .Q24H PRN; Protocol; 1 MG/HR PRN Reason: Agitation Last Titration: 02/09/18 23:00 Dose: 3 mg/hr, 3 mls/hr Dextrose/Sodium Chloride (Dextrose 5%/0.9% Ns 1000 Ml) 1,000 mls @ 140 mls/hr IV .Q7H9M [facility] Last Admin: 02/10/18 06:08 Dose: 140 mls/hr Valproate Sodium 1,000 mg/ (Sodium Chloride) 110 mls @ 100 mls/hr IVPB Q12 [facility] Last Admin: 02/10/18 09:13 Dose: 100 mls/hr Valproate Sodium 500 mg/ (Sodium Chloride) 105 mls @ 100 mls/hr IVPB ONCE ONE Stop: 02/10/18 11:02 Levetiracetam 1,500 mg/ Sodium (Chloride) 115 mls @ 460 mls/hr IV Q12H [facility] Physical Exam - Constitutional Appears: Chronically Ill - Head Exam Head Exam: NORMOCEPHALIC - Eye Exam Eye Exam: PERRL - ENT Exam ENT Exam: Mucous Membranes Moist - Respiratory Exam Respiratory Exam: Decreased Breath Sounds - Cardiovascular Exam Cardiovascular Exam: Irregular Rhythm, +S1, +S2 - GI/Abdominal Exam GI & Abdominal Exam: Normal Bowel Sounds, Soft - Exam Additional comments: oliguria - Skin Skin Exam: Dry, Pallor - Additional Findings Additional findings: Palliative performance scale rating 10% Results - Vital Signs Recent Vital Signs: Last Vital Signs Temp 99.0 F 02/10/18 03:00 Pulse 70 02/10/18 06:00 Resp 18 02/09/18 12:28 BP 101/45 L 02/10/18 03:01 Pulse Ox 100 02/10/18 03:00 - Labs Result Diagrams: 02/10/18 06:00 02/10/18 06:00 Labs: Laboratory Results - last 24 hr 02/09/18 02/09/18 02/09/18 11:51 12:35 18:06 WBC RBC Hgb Hct MCV MCH MCHC RDW Plt Count MPV Gran % Lymph % (Auto) [place] % (Auto) Eos % (Auto) Baso % (Auto) Gran # Lymph # (Auto) [place] # (Auto) Eos # (Auto) Baso # (Auto) pCO2 pO2 HCO3 ABG pH ABG Total CO2 ABG O2 Saturation ABG O2 Content ABG Base Excess ABG Hemoglobin ABG Carboxyhemoglobin POC ABG HHb (Measured) ABG Methemoglobin ABG O2 Capacity Hgb O2 Saturation FiO2 Sodium Potassium Chloride Carbon Dioxide Anion Gap BUN Creatinine Est GFR ( Amer) Est GFR (Non-Af Amer) POC Glucose (mg/dL) 97 130 H Random Glucose Calcium Phosphorus 3.2 Magnesium 1.8 Total Bilirubin AST ALT Alkaline Phosphatase Total Protein Albumin Globulin Albumin/Globulin Ratio 02/09/18 02/10/18 02/10/18 23:52 05:20 05:46 WBC RBC Hgb Hct MCV MCH MCHC RDW Plt Count MPV Gran % Lymph % (Auto) [place] % (Auto) Eos % (Auto) Baso % (Auto) Gran # Lymph # (Auto) [place] # (Auto) Eos # (Auto) Baso # (Auto) pCO2 26 L pO2 199.0 H HCO3 20.3 L ABG pH 7.50 H ABG Total CO2 21.1 L ABG O2 Saturation 99.8 H ABG O2 Content 16.0 ABG Base Excess -1.8 ABG Hemoglobin 11.3 L ABG Carboxyhemoglobin 1.3 POC ABG HHb (Measured) 0.2 ABG Methemoglobin 0.9 ABG O2 Capacity 16.0 Hgb O2 Saturation 97.6 FiO2 60.0 Sodium Potassium Chloride Carbon Dioxide Anion Gap BUN Creatinine Est GFR ( Amer) Est GFR (Non-Af Amer) POC Glucose (mg/dL) 141 H 156 H Random Glucose Calcium Phosphorus Magnesium Total Bilirubin AST ALT Alkaline Phosphatase Total Protein Albumin Globulin Albumin/Globulin Ratio 02/10/18 02/10/18 02/10/18 06:00 06:00 08:05 WBC 12.6 H RBC 3.70 Hgb 11.3 L Hct 32.6 L MCV 88.1 MCH 30.5 MCHC 34.7 RDW 18.0 H Plt Count 176 MPV 9.9 Gran % 88.0 H Lymph % (Auto) 7.4 L [place] % (Auto) 4.6 Eos % (Auto) 0.0 L Baso % (Auto) 0.0 Gran # 11.10 H Lymph # (Auto) 0.9 L [place] # (Auto) 0.6 Eos # (Auto) 0.0 Baso # (Auto) 0.00 pCO2 pO2 HCO3 ABG pH ABG Total CO2 ABG O2 Saturation ABG O2 Content ABG Base Excess ABG Hemoglobin ABG Carboxyhemoglobin POC ABG HHb (Measured) ABG Methemoglobin ABG O2 Capacity Hgb O2 Saturation FiO2 Sodium 130 L Potassium 3.5 L Chloride 101 Carbon Dioxide 22 Anion Gap 10 BUN 27 H Creatinine 1.9 H Est GFR ( Amer) 43 Est GFR (Non-Af Amer) 35 POC Glucose (mg/dL) 157 H Random Glucose 160 H Calcium 6.8 L* Phosphorus Magnesium Total Bilirubin 1.1 AST 39 ALT 37 Alkaline Phosphatase 78 Total Protein 4.0 L Albumin 1.8 L Globulin 2.1 Albumin/Globulin Ratio 0.9 L Assessment & Plan - Assessment and Plan (Free Text) Assessment: 67 year old male with history of cardiomyopathy, CHF, A Fib, HTN s/p AICD who suffered cardiopulmonary arrest, delayed ACLS> intubated, s/p cooling protocol, who is admitted with seizures,sepsis, respiratory failure, YE, hyponatremia, probable anoxic brain injury. Patient is sedated, on vasopressors. Patient's [place] and father in law at bedside. Palliative services introduced as support system for family. Discussed family's understanding of patients medical situation and prognosis. states that he is in" bad shape", yet feels that he has a chance of coming out of this. Explained that despite aggressive medical interventions, patient may not rebound /improve. Explained that delay in ACLS may have caused significant brain damage. Reminded of patients underlying cardiac comorbidities. Discussion regarding DNR ensued. asked to consider assigning him DNR status. Ramifications of CPR explained in detail. terminal make up operator goals regarding patient's quality of life also explored and discussed. needs time to process information. Psychosocial support provided. Family also asked for spiritual support. Family met with Rev. Hooks, they are also requesting to be visited by real estate executive assistant. Time spent with family in goals of care and advance care planning discussion, 50 minutes Plan: Goals of care and advance care planning Seizures: Continue Keppra as ordered, continue sedation. EEG results pending. Neuro recommendations. Cardiomyopathy:Supportive care, vasopressors. YE: Monitor renal functions. Hyponatremia: Monitor labs,correct electrolytes. Respiratory Failure: Continue vent support, Monitor ABG's. Sepsis: Continue antibiotics.
[2018-02-10] MEDS: Valproate 500 MG in Sodium Chloride 0.9% 100 ML IVPB ONE ×2 (10:33→15:56)
--- NOTE | 2018-02-10 11:49 | CP.CCUPN ---
<Mary Cervantes - Last Filed: 02/10/18 12:43> CCU Subjective - Physician Review Subjective (Free Text): 02/10/18 11:49 PGY-[address] Hill EEG done today. Family meeting with Dr. Hill and Dr Arias. Family agrees to DNR.DNI CCU Objective - Vital Signs / Intake & Output Vital Signs (Last 4 hours): Vital Signs Temp Pulse Resp BP Pulse Ox 02/10/18 10:50 98.6 F 70 100 02/10/18 10:40 98.6 F 70 100 02/10/18 10:30 98.6 F 70 100 02/10/18 10:20 98.6 F 70 100 02/10/18 10:10 98.6 F 70 100 02/10/18 10:00 98.6 F 70 115/79 100 02/10/18 09:50 98.6 F 70 100 02/10/18 09:40 98.6 F 70 100 02/10/18 09:30 98.6 F 71 100 02/10/18 09:20 98.6 F 70 100 02/10/18 09:10 98.6 F 70 100 02/10/18 09:00 98.6 F 72 112/79 100 02/10/18 08:50 98.6 F 70 100 02/10/18 08:40 98.6 F 70 100 02/10/18 08:30 98.6 F 70 100 02/10/18 08:23 98.6 F 70 20 100 02/10/18 08:20 98.6 F 70 100 02/10/18 08:10 98.6 F 70 100 02/10/18 08:00 98.6 F 70 107/74 100 02/10/18 07:50 98.6 F 70 100 Intake and Output (Last 8hrs): Intake & Output 02/09/18 02/10/18 02/10/18 22:59 06:59 14:59 Intake Total 2934 650 3330 Output Total 300 450 Balance 2634 650 2880 Intake: IV 2934 650 3330 Right Antecubital 1700 2680 Right Internal Jugular 500 600 Output: Urine 300 450 Urethral (Renteria) 300 450 Other: # Bowel Movements 1 - Physical Exam Head: Positive for: Atraumatic, Normocephalic Pupils: Positive for: Other (fixed and dilated) Conjunctiva: Positive for: Normal Mouth: Positive for: Moist Mucous Membranes Neck: Negative for: JVD Respiratory/Chest: Positive for: Good Air Exchange, Rhonchi (right base). Negative for: Respiratory Distress, Accessory Muscle Use Cardiovascular: Positive for: Regular Rate and Rhythm, Normal S1, S2. Negative for: Murmurs Abdomen: Negative for: Tenderness, Distention, Normal Bowel Sounds (hypoactive) , Peritoneal Signs, Rebound, Guarding Back: Positive for: Normal Inspection Upper Extremity: Positive for: Normal Inspection. Negative for: Cyanosis, Edema Lower Extremity: Positive for: Normal Inspection, Swelling. Negative for: Edema Neurological: Positive for: CN II-XII Intact, Other (intubated, no w/d to pain , no gag reflex) Skin: Positive for: Warm, Dry, Normal Color. Negative for: Rashes Psychiatric: Positive for: Other (sedated) - Medications Active Medications: Active Medications Generic Name Dose Route Start Last Admin Trade Name Freq PRN Reason Stop Dose Admin Artificial Tears 0 gm 02/08/18 18:30 02/10/18 06:08 Artificial Tears Opht Oint OU 1 applic Q6 KELLY Administration Heparin Sodium (Porcine) 5,000 units 02/08/18 22:00 02/10/18 09:14 Heparin SC 5,000 units Q12 KELLY Administration Protocol Propofol 1,000 mg in 100 mls @ 3 mls/hr 02/07/18 21:17 02/10/18 06:08 Diprivan IV 5 mcg/kg/min .Q24H PRN 3 mls/hr TITRATE PER MD ORDER Administration Protocol 5 MCG/KG/MIN NOREPINEPHRINE BIT/0.9 % NACL 4 mg in 250 mls @ 15 mls/hr 02/07/18 21:21 12/25 07:38 Levophed 4 Mg/ 250 Ml Ns Premixed IV 20 mcg/min .[id number] PRN 75 mls/hr TITRATE PER MD ORDER Titration Protocol 4 MCG/MIN Fentanyl Citrate 1,000 mcg in 100 mls @ 2 mls/hr 02/08/18 12:01 02/09/18 19: 00 Fentanyl Citrate/Sodium Chloride 1 Mg/100 Ml IV Infused .Q24H PRN Titration TITRATE PER MD ORDER Protocol 20 MCG/HR Cisatracurium Besylate 200 mg/ 250 mls @ 7.79 mls/hr 02/08/18 12:09 02/09/18 20:44 Sodium Chloride IV Infused .Q24H PRN Titration TITRATE PER MD ORDER Protocol 1 MCG/KG/MIN Vasopressin 20 units/ Sodium 101 mls @ 9.09 mls/hr 02/09/18 00:00 02/09/18 22 :15 Chloride IV 9.09 mls/hr .Q11H7M KELLY Administration Protocol 0.03 U/MIN Linezolid 600 mg in 300 mls @ 200 mls/hr 02/09/18 10:00 02/10/18 09:15 Zyvox 600mg/300ml D5w IVPB 02/18/18 10:01 200 mls/hr Q12 KELLY Administration Protocol Midazolam 100 mg/100ml in NS 100 mg in 100 mls @ 1 mls/hr 02/09/18 11:13 11/24 23:00 Midazolam 100 Mg/100ml In Ns IV 3 mg/hr .Q24H PRN 3 mls/hr Agitation Titration Protocol 1 MG/HR Dextrose/Sodium Chloride 1,000 mls @ 140 mls/hr 02/09/18 12:45 02/10/18 06:08 Dextrose 5%/0.9% Ns 1000 Ml IV 140 mls/hr .Q7H9M KELLY Administration Valproate Sodium 1,000 mg/ 110 mls @ 100 mls/hr 02/09/18 22:00 02/10/18 09:13 Sodium Chloride IVPB 100 mls/hr Q12 KELLY Administration Levetiracetam 1,500 mg/ Sodium 115 mls @ 460 mls/hr 02/10/18 18:00 Chloride IV Q12H KELLY Aztreonam 100 mls @ 100 mls/hr 02/10/18 11:30 Azactam 1 Gm IVPB 02/17/18 11:31 Q8 KELLY Protocol Doxycycline Hyclate 100 mg/ 100 mls @ 100 mls/hr 02/10/18 11:30 Sodium Chloride IVPB Q12 KELLY Protocol Potassium Chloride 20 meq in 100 mls @ 50 mls/hr 02/10/18 11:46 Potassium Chloride 20 Meq/100 Ml IVPB 02/10/18 13:45 ONCE ONE - Patient Studies Lab Studies: Microbiology Studies 02/07/18 23:30 MRSA Culture (Admit) - Final Naris MRSA NOT DETECTED Lab Studies 02/10/18 02/10/18 02/10/18 Range/Units 08:05 06:00 06:00 WBC 12.6 H (4.5-11.0) 10^3/ul RBC 3.70 (3.5-6.1) 10^6/uL Hgb 11.3 L (14.0-18.0) g/dL Hct 32.6 L (42.0-52.0) % MCV 88.1 (80.0-105.0) fl MCH 30.5 (25.0-35.0) pg MCHC 34.7 (31.0-37.0) g/dl RDW 18.0 H (11.5-14.5) % Plt Count 176 (120.0-450.0) 10^3/uL MPV 9.9 (7.0-11.0) fl Gran % 88.0 H (50.0-68.0) % Lymph % (Auto) 7.4 L (22.0-35.0) % Graham % (Auto) 4.6 (1.0-6.0) % Eos % (Auto) 0.0 L (1.5-5.0) % Baso % (Auto) 0.0 (0.0-3.0) % Gran # 11.10 H (1.4-6.5) Lymph # (Auto) 0.9 L (1.2-3.4) Graham # (Auto) 0.6 (0.1-0.6) Eos # (Auto) 0.0 (0.0-0.7) Baso # (Auto) 0.00 (0.0-2.0) K/mm3 pCO2 (35-45) mm/Hg pO2 (80-100) mm/Hg HCO3 (21-28) mmol/L ABG pH (7.35-7.45) ABG Total CO2 (22-28) mmol.L ABG O2 Saturation (95-98) % ABG O2 Content (15-23) ML/dl ABG Base Excess (-2.0-3.0) mmol/L ABG Hemoglobin (11.7-17.4) g/dL ABG Carboxyhemoglobin (0.5-1.5) % POC ABG HHb (Measured) (0-5) % ABG Methemoglobin (0.0-3.0) % ABG O2 Capacity (16-24) mL/dl Hgb O2 Saturation (95.0-98.0) % FiO2 % Sodium 130 L (132-148) mmol/L Potassium 3.5 L (3.6-5.0) mmol/L Chloride 101 (98-107) mmol/L Carbon Dioxide 22 (21-33) mmol/L Anion Gap 10 (10-20) BUN 27 H (7-21) mg/dL Creatinine 1.9 H (0.8-1.5) mg/dl Est GFR ( Amer) 43 Est GFR (Non-Af Amer) 35 POC Glucose (mg/dL) 157 H (65-110) mg/dL Random Glucose 160 H (70-110) mg/dL Calcium 6.8 L* (8.4-10.5) mg/dL Phosphorus (2.5-4.5) mg/dL Magnesium (1.7-2.2) mg/dL Total Bilirubin 1.1 (0.2-1.3) mg/dL AST 39 (17-59) U/L ALT 37 (7-56) U/L Alkaline Phosphatase 78 (38-126) U/L Total Protein 4.0 L (5.8-8.3) g/dL Albumin 1.8 L (3.0-4.8) g/dL Globulin 2.1 gm/dL Albumin/Globulin Ratio 0.9 L (1.1-1.8) 02/10/18 02/10/18 02/09/18 Range/Units 05:46 05:20 23:52 WBC (4.5-11.0) 10^3/ul RBC (3.5-6.1) 10^6/uL Hgb (14.0-18.0) g/dL Hct (42.0-52.0) % MCV (80.0-105.0) fl MCH (25.0-35.0) pg MCHC (31.0-37.0) g/dl RDW (11.5-14.5) % Plt Count (120.0-450.0) 10^3/uL MPV (7.0-11.0) fl Gran % (50.0-68.0) % Lymph % (Auto) (22.0-35.0) % Graham % (Auto) (1.0-6.0) % Eos % (Auto) (1.5-5.0) % Baso % (Auto) (0.0-3.0) % Gran # (1.4-6.5) Lymph # (Auto) (1.2-3.4) Graham # (Auto) (0.1-0.6) Eos # (Auto) (0.0-0.7) Baso # (Auto) (0.0-2.0) K/mm3 pCO2 26 L (35-45) mm/Hg pO2 199.0 H (80-100) mm/Hg HCO3 20.3 L (21-28) mmol/L ABG pH 7.50 H (7.35-7.45) ABG Total CO2 21.1 L (22-28) mmol.L ABG O2 Saturation 99.8 H (95-98) % ABG O2 Content 16.0 (15-23) ML/dl ABG Base Excess -1.8 (-2.0-3.0) mmol/L ABG Hemoglobin 11.3 L (11.7-17.4) g/dL ABG Carboxyhemoglobin 1.3 (0.5-1.5) % POC ABG HHb (Measured) 0.2 (0-5) % ABG Methemoglobin 0.9 (0.0-3.0) % ABG O2 Capacity 16.0 (16-24) mL/dl Hgb O2 Saturation 97.6 (95.0-98.0) % FiO2 60.0 % Sodium (132-148) mmol/L Potassium (3.6-5.0) mmol/L Chloride (98-107) mmol/L Carbon Dioxide (21-33) mmol/L Anion Gap (10-20) BUN (7-21) mg/dL Creatinine (0.8-1.5) mg/dl Est GFR ( Amer) Est GFR (Non-Af Amer) POC Glucose (mg/dL) 156 H 141 H (65-110) mg/dL Random Glucose (70-110) mg/dL Calcium (8.4-10.5) mg/dL Phosphorus (2.5-4.5) mg/dL Magnesium (1.7-2.2) mg/dL Total Bilirubin (0.2-1.3) mg/dL AST (17-59) U/L ALT (7-56) U/L Alkaline Phosphatase (38-126) U/L Total Protein (5.8-8.3) g/dL Albumin (3.0-4.8) g/dL Globulin gm/dL Albumin/Globulin Ratio (1.1-1.8) 02/09/18 02/09/18 02/09/18 Range/Units 18:06 12:35 11:51 WBC (4.5-11.0) 10^3/ul RBC (3.5-6.1) 10^6/uL Hgb (14.0-18.0) g/dL Hct (42.0-52.0) % MCV (80.0-105.0) fl MCH (25.0-35.0) pg MCHC (31.0-37.0) g/dl RDW (11.5-14.5) % Plt Count (120.0-450.0) 10^3/uL MPV (7.0-11.0) fl Gran % (50.0-68.0) % Lymph % (Auto) (22.0-35.0) % Graham % (Auto) (1.0-6.0) % Eos % (Auto) (1.5-5.0) % Baso % (Auto) (0.0-3.0) % Gran # (1.4-6.5) Lymph # (Auto) (1.2-3.4) Graham # (Auto) (0.1-0.6) Eos # (Auto) (0.0-0.7) Baso # (Auto) (0.0-2.0) K/mm3 pCO2 (35-45) mm/Hg pO2 (80-100) mm/Hg HCO3 (21-28) mmol/L ABG pH (7.35-7.45) ABG Total CO2 (22-28) mmol.L ABG O2 Saturation (95-98) % ABG O2 Content (15-23) ML/dl ABG Base Excess (-2.0-3.0) mmol/L ABG Hemoglobin (11.7-17.4) g/dL ABG Carboxyhemoglobin (0.5-1.5) % POC ABG HHb (Measured) (0-5) % ABG Methemoglobin (0.0-3.0) % ABG O2 Capacity (16-24) mL/dl Hgb O2 Saturation (95.0-98.0) % FiO2 % Sodium (132-148) mmol/L Potassium (3.6-5.0) mmol/L Chloride (98-107) mmol/L Carbon Dioxide (21-33) mmol/L Anion Gap (10-20) BUN (7-21) mg/dL Creatinine (0.8-1.5) mg/dl Est GFR ( Amer) Est GFR (Non-Af Amer) POC Glucose (mg/dL) 130 H 97 (65-110) mg/dL Random Glucose (70-110) mg/dL Calcium (8.4-10.5) mg/dL Phosphorus 3.2 (2.5-4.5) mg/dL Magnesium 1.8 (1.7-2.2) mg/dL Total Bilirubin (0.2-1.3) mg/dL AST (17-59) U/L ALT (7-56) U/L Alkaline Phosphatase (38-126) U/L Total Protein (5.8-8.3) g/dL Albumin (3.0-4.8) g/dL Globulin gm/dL Albumin/Globulin Ratio (1.1-1.8) Laboratory Results - last 24 hr 02/09/18 02/09/18 02/09/18 11:51 12:35 18:06 WBC RBC Hgb Hct MCV MCH MCHC RDW Plt Count MPV Gran % Lymph % (Auto) Graham % (Auto) Eos % (Auto) Baso % (Auto) Gran # Lymph # (Auto) Graham # (Auto) Eos # (Auto) Baso # (Auto) pCO2 pO2 HCO3 ABG pH ABG Total CO2 ABG O2 Saturation ABG O2 Content ABG Base Excess ABG Hemoglobin ABG Carboxyhemoglobin POC ABG HHb (Measured) ABG Methemoglobin ABG O2 Capacity Hgb O2 Saturation FiO2 Sodium Potassium Chloride Carbon Dioxide Anion Gap BUN Creatinine Est GFR ( Amer) Est GFR (Non-Af Amer) POC Glucose (mg/dL) 97 130 H Random Glucose Calcium Phosphorus 3.2 Magnesium 1.8 Total Bilirubin AST ALT Alkaline Phosphatase Total Protein Albumin Globulin Albumin/Globulin Ratio 02/09/18 02/10/18 02/10/18 23:52 05:20 05:46 WBC RBC Hgb Hct MCV MCH MCHC RDW Plt Count MPV Gran % Lymph % (Auto) Graham % (Auto) Eos % (Auto) Baso % (Auto) Gran # Lymph # (Auto) Graham # (Auto) Eos # (Auto) Baso # (Auto) pCO2 26 L pO2 199.0 H HCO3 20.3 L ABG pH 7.50 H ABG Total CO2 21.1 L ABG O2 Saturation 99.8 H ABG O2 Content 16.0 ABG Base Excess -1.8 ABG Hemoglobin 11.3 L ABG Carboxyhemoglobin 1.3 POC ABG HHb (Measured) 0.2 ABG Methemoglobin 0.9 ABG O2 Capacity 16.0 Hgb O2 Saturation 97.6 FiO2 60.0 Sodium Potassium Chloride Carbon Dioxide Anion Gap BUN Creatinine Est GFR ( Amer) Est GFR (Non-Af Amer) POC Glucose (mg/dL) 141 H 156 H Random Glucose Calcium Phosphorus Magnesium Total Bilirubin AST ALT Alkaline Phosphatase Total Protein Albumin Globulin Albumin/Globulin Ratio 02/10/18 02/10/18 02/10/18 06:00 06:00 08:05 WBC 12.6 H RBC 3.70 Hgb 11.3 L Hct 32.6 L MCV 88.1 MCH 30.5 MCHC 34.7 RDW 18.0 H Plt Count 176 MPV 9.9 Gran % 88.0 H Lymph % (Auto) 7.4 L Graham % (Auto) 4.6 Eos % (Auto) 0.0 L Baso % (Auto) 0.0 Gran # 11.10 H Lymph # (Auto) 0.9 L Graham # (Auto) 0.6 Eos # (Auto) 0.0 Baso # (Auto) 0.00 pCO2 pO2 HCO3 ABG pH ABG Total CO2 ABG O2 Saturation ABG O2 Content ABG Base Excess ABG Hemoglobin ABG Carboxyhemoglobin POC ABG HHb (Measured) ABG Methemoglobin ABG O2 Capacity Hgb O2 Saturation FiO2 Sodium 130 L Potassium 3.5 L Chloride 101 Carbon Dioxide 22 Anion Gap 10 BUN 27 H Creatinine 1.9 H Est GFR ( Amer) 43 Est GFR (Non-Af Amer) 35 POC Glucose (mg/dL) 157 H Random Glucose 160 H Calcium 6.8 L* Phosphorus Magnesium Total Bilirubin 1.1 AST 39 ALT 37 Alkaline Phosphatase 78 Total Protein 4.0 L Albumin 1.8 L Globulin 2.1 Albumin/Globulin Ratio 0.9 L Fingerstick Blood Sugar Results: 130 Critical Care Progress Note - Ventilator Checklist Daily Sedation Vacation: No (Continual seizure) - Vent Settings MODE:: PRVC TIDAL VOLUME:: 550 RESP RATE:: 18 FIO2:: 60 PEEP:: 5 Assessment/Plan - Assessment and Plan (Free Text) Plan: Mr Rajput, 67 M, with PMHx HTN, paroxysmal A-fib (on Eliquis), cardiomyopathy (s/p AICD), recent lower extremity cellulitis growing MRSA and pseudomonas, and ETOH abuse being admitted to the ICU s/p cardiac arrest. He had V-tach (s/p cardioversion in the field) followed by PEA arrest in the ED (s/ p treatment per ACLS protocol). Since ROSC, the patient has been unresponsive, started on hypothermia protocol, and rewarm on Saturday (02/09). He was found to have b/l pleural effusion likely pneumonia vs aspiration pneumonitis. He has cardiogenic shock vs septiv shock requiring empiric IV antibiotics and Levophed drip. EEG was done today/. Pt was seen having seizures vs subclinical seizures. Pt has YE with oliguria likely due to low CO. Neuro - EEG done - Pheobarbital 15mg/kg bolus; maintain at 2mg/kg/day - Keppra 1500mg Q12 - Valproate 1000mg Q12 - maintain euthermic - sedated on propofol 5 Pulmonary - Intubated on PRVC 550/18/5/60%, protective lung ventilation - HOB >30 - CXR: b/l infiltrate with pulm edema - Maintain O2 Sat> 92% - ABG repeat AM Cardiovascular - EKG reviewed, possibility of new ischemic changes, now s/p cardiac arrest, known CHF w/ pacemaker - AICD interrogated. No preceeding events. - BP support on levophed 20, vasopressin 0.03 - Maintain MAP >65 - D5/NS @ 140 Gastrointestinal - Tube feeding - b/l pleural effusion, worse in SUSAN, LLL vs aspiration. Rib fracture. cirrhosis. small volume ascites - Protonix IV Renal/Electrolytes - oliguric 450cc urine output/24 hr - YE KDIGO II likely 2/2 poor perfusion/pre renal, will maintain hemodynamics - Monitor urine output, strict IxOs - Avoid nephrotoxins - Avoid hyperchloremia - Ca++ corrected is normal - Replete K. goal is 4 Infectious disease - Known lower extremity cellulitis, recently discharged on zyvox but did not fill due to some insurance reason and instead was on bactrim - Aztreonam, Doxycyclin Q12, Linezolid 600mg Q12 - Procalcitonin Hematologic - No active bleeding Endocrine - Maintain euglycemia 140-180 per NICE-SUGAR trial GI/DVT ppx: protonix; heparin SQ Dispo plan: - DNR/DNI - Palliative on board s/r/d/w Dr Hill <Osmin Hill - Last Filed: 02/10/18 15:11> CCU Objective - Vital Signs / Intake & Output Intake and Output (Last 8hrs): Intake & Output 02/10/18 02/10/18 02/10/18 06:59 14:59 22:59 Intake Total 650 3330 Output Total 450 Balance 650 2880 Intake: IV 650 3330 Right Antecubital 2680 Right Internal Jugular 600 Output: Urine 450 Urethral (Renteria) 450 Other: # Bowel Movements 1 - Medications Active Medications: Active Medications Generic Name Dose Route Start Last Admin Trade Name Freq PRN Reason Stop Dose Admin Artificial Tears 0 gm 02/08/18 18:30 02/10/18 11:57 Artificial Tears Opht Oint OU 1 applic Q6 KELLY Administration Heparin Sodium (Porcine) 5,000 units 02/08/18 22:00 02/10/18 09:14 Heparin SC 5,000 units Q12 KELLY Administration Protocol Propofol 1,000 mg in 100 mls @ 3 mls/hr 02/07/18 21:17 02/10/18 06:08 Diprivan IV 5 mcg/kg/min .Q24H PRN 3 mls/hr TITRATE PER MD ORDER Administration Protocol 5 MCG/KG/MIN NOREPINEPHRINE BIT/0.9 % NACL 4 mg in 250 mls @ 15 mls/hr 02/07/18 21:21 12/25 07:38 Levophed 4 Mg/ 250 Ml Ns Premixed IV 20 mcg/min .[id number] PRN 75 mls/hr TITRATE PER MD ORDER Titration Protocol 4 MCG/MIN Fentanyl Citrate 1,000 mcg in 100 mls @ 2 mls/hr 02/08/18 12:01 02/09/18 19: 00 Fentanyl Citrate/Sodium Chloride 1 Mg/100 Ml IV Infused .Q24H PRN Titration TITRATE PER MD ORDER Protocol 20 MCG/HR Vasopressin 20 units/ Sodium 101 mls @ 9.09 mls/hr 02/09/18 00:00 02/09/18 22 :15 Chloride IV 9.09 mls/hr .Q11H7M KELLY Administration Protocol 0.03 U/MIN Linezolid 600 mg in 300 mls @ 200 mls/hr 02/09/18 10:00 02/10/18 09:15 Zyvox 600mg/300ml D5w IVPB 02/18/18 10:01 200 mls/hr Q12 KELLY Administration Protocol Midazolam 100 mg/100ml in NS 100 mg in 100 mls @ 1 mls/hr 02/09/18 11:13 11/24 23:00 Midazolam 100 Mg/100ml In Ns IV 3 mg/hr .Q24H PRN 3 mls/hr Agitation Titration Protocol 1 MG/HR Dextrose/Sodium Chloride 1,000 mls @ 140 mls/hr 02/09/18 12:45 02/10/18 06:08 Dextrose 5%/0.9% Ns 1000 Ml IV 140 mls/hr .Q7H9M KELLY Administration Valproate Sodium 1,000 mg/ 110 mls @ 100 mls/hr 02/09/18 22:00 02/10/18 09:13 Sodium Chloride IVPB 100 mls/hr Q12 KELLY Administration Levetiracetam 1,500 mg/ Sodium 115 mls @ 460 mls/hr 02/10/18 18:00 Chloride IV Q12H KELLY Aztreonam 100 mls @ 100 mls/hr 02/10/18 11:30 02/10/18 11:56 Azactam 1 Gm IVPB 02/17/18 11:31 100 mls/hr Q8 KELLY Administration Protocol Doxycycline Hyclate 100 mg/ 100 mls @ 100 mls/hr 02/10/18 11:30 02/10/18 11: 53 Sodium Chloride IVPB 100 mls/hr Q12 [facility] Administration Protocol Phenobarbital 50 mg 02/10/18 18:00 Phenobarbital Inj IV Q6 [facility] - Patient Studies Lab Studies: Microbiology Studies 02/07/18 23:30 MRSA Culture (Admit) - Final Naris MRSA NOT DETECTED Lab Studies 02/10/18 02/10/18 02/10/18 Range/Units 08:05 06:00 06:00 WBC 12.6 H (4.5-11.0) 10^3/ul RBC 3.70 (3.5-6.1) 10^6/uL Hgb 11.3 L (14.0-18.0) g/dL Hct 32.6 L (42.0-52.0) % MCV 88.1 (80.0-105.0) fl MCH 30.5 (25.0-35.0) pg MCHC 34.7 (31.0-37.0) g/dl RDW 18.0 H (11.5-14.5) % Plt Count 176 (120.0-450.0) 10^3/uL MPV 9.9 (7.0-11.0) fl Gran % 88.0 H (50.0-68.0) % Lymph % (Auto) 7.4 L (22.0-35.0) % Graham % (Auto) 4.6 (1.0-6.0) % Eos % (Auto) 0.0 L (1.5-5.0) % Baso % (Auto) 0.0 (0.0-3.0) % Gran # 11.10 H (1.4-6.5) Lymph # (Auto) 0.9 L (1.2-3.4) Graham # (Auto) 0.6 (0.1-0.6) Eos # (Auto) 0.0 (0.0-0.7) Baso # (Auto) 0.00 (0.0-2.0) K/mm3 pCO2 (35-45) mm/Hg pO2 (80-100) mm/Hg HCO3 (21-28) mmol/L ABG pH (7.35-7.45) ABG Total CO2 (22-28) mmol.L ABG O2 Saturation (95-98) % ABG O2 Content (15-23) ML/dl ABG Base Excess (-2.0-3.0) mmol/L ABG Hemoglobin (11.7-17.4) g/dL ABG Carboxyhemoglobin (0.5-1.5) % POC ABG HHb (Measured) (0-5) % ABG Methemoglobin (0.0-3.0) % ABG O2 Capacity (16-24) mL/dl Hgb O2 Saturation (95.0-98.0) % FiO2 % Sodium 130 L (132-148) mmol/L Potassium 3.5 L (3.6-5.0) mmol/L Chloride 101 (98-107) mmol/L Carbon Dioxide 22 (21-33) mmol/L Anion Gap 10 (10-20) BUN 27 H (7-21) mg/dL Creatinine 1.9 H (0.8-1.5) mg/dl Est GFR ( Amer) 43 Est GFR (Non-Af Amer) 35 POC Glucose (mg/dL) 157 H (65-110) mg/dL Random Glucose 160 H (70-110) mg/dL Calcium 6.8 L* (8.4-10.5) mg/dL Total Bilirubin 1.1 (0.2-1.3) mg/dL AST 39 (17-59) U/L ALT 37 (7-56) U/L Alkaline Phosphatase 78 (38-126) U/L Total Protein 4.0 L (5.8-8.3) g/dL Albumin 1.8 L (3.0-4.8) g/dL Globulin 2.1 gm/dL Albumin/Globulin Ratio 0.9 L (1.1-1.8) 02/10/18 02/10/18 02/09/18 Range/Units 05:46 05:20 23:52 WBC (4.5-11.0) 10^3/ul RBC (3.5-6.1) 10^6/uL Hgb (14.0-18.0) g/dL Hct (42.0-52.0) % MCV (80.0-105.0) fl MCH (25.0-35.0) pg MCHC (31.0-37.0) g/dl RDW (11.5-14.5) % Plt Count (120.0-450.0) 10^3/uL MPV (7.0-11.0) fl Gran % (50.0-68.0) % Lymph % (Auto) (22.0-35.0) % Graham % (Auto) (1.0-6.0) % Eos % (Auto) (1.5-5.0) % Baso % (Auto) (0.0-3.0) % Gran # (1.4-6.5) Lymph # (Auto) (1.2-3.4) Graham # (Auto) (0.1-0.6) Eos # (Auto) (0.0-0.7) Baso # (Auto) (0.0-2.0) K/mm3 pCO2 26 L (35-45) mm/Hg pO2 199.0 H (80-100) mm/Hg HCO3 20.3 L (21-28) mmol/L ABG pH 7.50 H (7.35-7.45) ABG Total CO2 21.1 L (22-28) mmol.L ABG O2 Saturation 99.8 H (95-98) % ABG O2 Content 16.0 (15-23) ML/dl ABG Base Excess -1.8 (-2.0-3.0) mmol/L ABG Hemoglobin 11.3 L (11.7-17.4) g/dL ABG Carboxyhemoglobin 1.3 (0.5-1.5) % POC ABG HHb (Measured) 0.2 (0-5) % ABG Methemoglobin 0.9 (0.0-3.0) % ABG O2 Capacity 16.0 (16-24) mL/dl Hgb O2 Saturation 97.6 (95.0-98.0) % FiO2 60.0 % Sodium (132-148) mmol/L Potassium (3.6-5.0) mmol/L Chloride (98-107) mmol/L Carbon Dioxide (21-33) mmol/L Anion Gap (10-20) BUN (7-21) mg/dL Creatinine (0.8-1.5) mg/dl Est GFR ( Amer) Est GFR (Non-Af Amer) POC Glucose (mg/dL) 156 H 141 H (65-110) mg/dL Random Glucose (70-110) mg/dL Calcium (8.4-10.5) mg/dL Total Bilirubin (0.2-1.3) mg/dL AST (17-59) U/L ALT (7-56) U/L Alkaline Phosphatase (38-126) U/L Total Protein (5.8-8.3) g/dL Albumin (3.0-4.8) g/dL Globulin gm/dL Albumin/Globulin Ratio (1.1-1.8) 02/09/18 Range/Units 18:06 WBC (4.5-11.0) 10^3/ul RBC (3.5-6.1) 10^6/uL Hgb (14.0-18.0) g/dL Hct (42.0-52.0) % MCV (80.0-105.0) fl MCH (25.0-35.0) pg MCHC (31.0-37.0) g/dl RDW (11.5-14.5) % Plt Count (120.0-450.0) 10^3/uL MPV (7.0-11.0) fl Gran % (50.0-68.0) % Lymph % (Auto) (22.0-35.0) % Graham % (Auto) (1.0-6.0) % Eos % (Auto) (1.5-5.0) % Baso % (Auto) (0.0-3.0) % Gran # (1.4-6.5) Lymph # (Auto) (1.2-3.4) Graham # (Auto) (0.1-0.6) Eos # (Auto) (0.0-0.7) Baso # (Auto) (0.0-2.0) K/mm3 pCO2 (35-45) mm/Hg pO2 (80-100) mm/Hg HCO3 (21-28) mmol/L ABG pH (7.35-7.45) ABG Total CO2 (22-28) mmol.L ABG O2 Saturation (95-98) % ABG O2 Content (15-23) ML/dl ABG Base Excess (-2.0-3.0) mmol/L ABG Hemoglobin (11.7-17.4) g/dL ABG Carboxyhemoglobin (0.5-1.5) % POC ABG HHb (Measured) (0-5) % ABG Methemoglobin (0.0-3.0) % ABG O2 Capacity (16-24) mL/dl Hgb O2 Saturation (95.0-98.0) % FiO2 % Sodium (132-148) mmol/L Potassium (3.6-5.0) mmol/L Chloride (98-107) mmol/L Carbon Dioxide (21-33) mmol/L Anion Gap (10-20) BUN (7-21) mg/dL Creatinine (0.8-1.5) mg/dl Est GFR ( Amer) Est GFR (Non-Af Amer) POC Glucose (mg/dL) 130 H (65-110) mg/dL Random Glucose (70-110) mg/dL Calcium (8.4-10.5) mg/dL Total Bilirubin (0.2-1.3) mg/dL AST (17-59) U/L ALT (7-56) U/L Alkaline Phosphatase (38-126) U/L Total Protein (5.8-8.3) g/dL Albumin (3.0-4.8) g/dL Globulin gm/dL Albumin/Globulin Ratio (1.1-1.8) Laboratory Results - last 24 hr 02/09/18 02/09/18 02/10/18 18:06 23:52 05:20 WBC RBC Hgb Hct MCV MCH MCHC RDW Plt Count MPV Gran % Lymph % (Auto) Graham % (Auto) Eos % (Auto) Baso % (Auto) Gran # Lymph # (Auto) Graham # (Auto) Eos # (Auto) Baso # (Auto) pCO2 26 L pO2 199.0 H HCO3 20.3 L ABG pH 7.50 H ABG Total CO2 21.1 L ABG O2 Saturation 99.8 H ABG O2 Content 16.0 ABG Base Excess -1.8 ABG Hemoglobin 11.3 L ABG Carboxyhemoglobin 1.3 POC ABG HHb (Measured) 0.2 ABG Methemoglobin 0.9 ABG O2 Capacity 16.0 Hgb O2 Saturation 97.6 FiO2 60.0 Sodium Potassium Chloride Carbon Dioxide Anion Gap BUN Creatinine Est GFR ( Amer) Est GFR (Non-Af Amer) POC Glucose (mg/dL) 130 H 141 H Random Glucose Calcium Total Bilirubin AST ALT Alkaline Phosphatase Total Protein Albumin Globulin Albumin/Globulin Ratio 02/10/18 02/10/18 02/10/18 05:46 06:00 06:00 WBC 12.6 H RBC 3.70 Hgb 11.3 L Hct 32.6 L MCV 88.1 MCH 30.5 MCHC 34.7 RDW 18.0 H Plt Count 176 MPV 9.9 Gran % 88.0 H Lymph % (Auto) 7.4 L Graham % (Auto) 4.6 Eos % (Auto) 0.0 L Baso % (Auto) 0.0 Gran # 11.10 H Lymph # (Auto) 0.9 L Graham # (Auto) 0.6 Eos # (Auto) 0.0 Baso # (Auto) 0.00 pCO2 pO2 HCO3 ABG pH ABG Total CO2 ABG O2 Saturation ABG O2 Content ABG Base Excess ABG Hemoglobin ABG Carboxyhemoglobin POC ABG HHb (Measured) ABG Methemoglobin ABG O2 Capacity Hgb O2 Saturation FiO2 Sodium 130 L Potassium 3.5 L Chloride 101 Carbon Dioxide 22 Anion Gap 10 BUN 27 H Creatinine 1.9 H Est GFR ( Amer) 43 Est GFR (Non-Af Amer) 35 POC Glucose (mg/dL) 156 H Random Glucose 160 H Calcium 6.8 L* Total Bilirubin 1.1 AST 39 ALT 37 Alkaline Phosphatase 78 Total Protein 4.0 L Albumin 1.8 L Globulin 2.1 Albumin/Globulin Ratio 0.9 L 02/10/18 08:05 WBC RBC Hgb Hct MCV MCH MCHC RDW Plt Count MPV Gran % Lymph % (Auto) Graham % (Auto) Eos % (Auto) Baso % (Auto) Gran # Lymph # (Auto) Graham # (Auto) Eos # (Auto) Baso # (Auto) pCO2 pO2 HCO3 ABG pH ABG Total CO2 ABG O2 Saturation ABG O2 Content ABG Base Excess ABG Hemoglobin ABG Carboxyhemoglobin POC ABG HHb (Measured) ABG Methemoglobin ABG O2 Capacity Hgb O2 Saturation FiO2 Sodium Potassium Chloride Carbon Dioxide Anion Gap BUN Creatinine Est GFR ( Amer) Est GFR (Non-Af Amer) POC Glucose (mg/dL) 157 H Random Glucose Calcium Total Bilirubin AST ALT Alkaline Phosphatase Total Protein Albumin Globulin Albumin/Globulin Ratio Assessment/Plan - Assessment and Plan (Free Text) Plan: Patient seen and examined on rounds with resident, agree with note with following additions/exceptions: Patient is 67yo male with PMHx HTN, paroxysmal A-fib (on Eliquis), cardiomyopathy (s/p AICD), recent lower extremity cellulitis growing MRSA and pseudomonas, and ETOH abuse being admitted to the ICU s/p cardiac arrest. Currently intubated, off sedation, with persistent seizures, despite aggressive AED therapy. neurology following. Patient likely sustained extensive anoxic brain injury. Currently on vasopressor support. Cardiology following. Patient on Valproate, Keppra, Versed, Ativan, and now on phenobarb IV. Patient not stable for transfer given vaspressor requirements. Afib Cardiomyopathy s/p AICD s/p Cardiac Arrest s/p ROSC Status Epilpeticus Anoxic brain injury PNA Pulm edema Recommend: - cont with vent support, low tidal vol ventilation, daily CPAP trials as tolerated - Abx as per ID, follow up cultures, procal - Vasopressor support - follow up cardiology - goal MAP 65, can add dobutamine - monitor HH - FS control, maintain euthermia - AEDs as per neurology - EEG follow up - palliative care follow up - monitor LFTs - GI ppx - DVT ppx, HSQ - Monitor in MICU Overall prognosis extremely poor Patient's would like the patient to be DNR Critical care time 45 minutes
[2018-02-10] MEDS: Aztreonam 1 Gm in NS 100mL 100 ML IVPB SCH ×3 (11:56→23:18)
--- NOTE | 2018-02-10 12:04 | CP.PCM.PN ---
Subjective - Date & Time of Evaluation Date of Evaluation: 02/10/18 Time of Evaluation: 10:35 - Subjective Subjective: Patient still intubated and sedated, still on vasopressor support, now to be put on paralytics as well since patient continues to have seizures. No fevers overnight. Objective - Vital Signs/Intake and Output Vital Signs (last 24 hours): Temp Pulse Resp BP Pulse Ox 99.0 F 70 18 101/45 L 100 02/10/18 03:00 02/10/18 06:00 02/09/18 12:28 02/10/18 03:01 02/10/18 03:00 Intake and Output: 02/10/18 02/10/18 06:59 18:59 Intake Total 1254 3330 Output Total 450 Balance 1254 2880 - Medications Medications: Current Medications Artificial Tears (Artificial Tears Opht Oint) 0 gm OU Q6 KELLY Last Admin: 02/10/18 06:08 Dose: 1 applic Heparin Sodium (Porcine) (Heparin) 5,000 units SC Q12 KELLY PRN Reason: Protocol Last Admin: 02/10/18 09:14 Dose: 5,000 units Propofol (Diprivan) 1,000 mg in 100 mls @ 3 mls/hr IV .Q24H PRN; Protocol; 5 MCG/KG/MIN PRN Reason: TITRATE PER MD ORDER Last Admin: 02/10/18 06:08 Dose: 5 mcg/kg/min, 3 mls/hr NOREPINEPHRINE BIT/0.9 % NACL (Levophed 4 Mg/ 250 Ml Ns Premixed) 4 mg in 250 mls @ 15 mls/hr IV .[id number] PRN; Protocol; 4 MCG/MIN PRN Reason: TITRATE PER MD ORDER Last Titration: 02/10/18 07:38 Dose: 20 mcg/min, 75 mls/hr Meropenem 500 mg/ Sodium (Chloride) 50 mls @ 100 mls/hr IVPB Q12 KELLY PRN Reason: Protocol Stop: 02/17/18 10:01 Last Admin: 02/10/18 09:17 Dose: 100 mls/hr Fentanyl Citrate (Fentanyl Citrate/Sodium Chloride 1 Mg/100 Ml) 1,000 mcg in 100 mls @ 2 mls/hr IV .Q24H PRN; Protocol; 20 MCG/HR PRN Reason: TITRATE PER MD ORDER Last Titration: 02/09/18 19:00 Dose: Infused Cisatracurium Besylate 200 mg/ (Sodium Chloride) 250 mls @ 7.79 mls/hr IV .Q24H PRN; Protocol; 1 MCG/KG/MIN PRN Reason: TITRATE PER MD ORDER Last Titration: 02/09/18 20:44 Dose: Infused Vasopressin 20 units/ Sodium (Chloride) 101 mls @ 9.09 mls/hr IV .Q11H7M KELLY; 0.03 U/MIN PRN Reason: Protocol Last Admin: 02/09/18 22:15 Dose: 9.09 mls/hr Levetiracetam 1,000 mg/ Sodium (Chloride) 110 mls @ 460 mls/hr IV Q12H KELLY Last Admin: 02/10/18 06:13 Dose: 460 mls/hr Linezolid (Zyvox 600mg/300ml D5w) 600 mg in 300 mls @ 200 mls/hr IVPB Q12 KELLY PRN Reason: Protocol Stop: 02/18/18 10:01 Last Admin: 02/10/18 09:15 Dose: 200 mls/hr Midazolam 100 mg/100ml in NS (Midazolam 100 Mg/100ml In Ns) 100 mg in 100 mls @ 1 mls/hr IV .Q24H PRN; Protocol; 1 MG/HR PRN Reason: Agitation Last Titration: 02/09/18 23:00 Dose: 3 mg/hr, 3 mls/hr Dextrose/Sodium Chloride (Dextrose 5%/0.9% Ns 1000 Ml) 1,000 mls @ 140 mls/hr IV .Q7H9M KELLY Last Admin: 02/10/18 06:08 Dose: 140 mls/hr Valproate Sodium 1,000 mg/ (Sodium Chloride) 110 mls @ 100 mls/hr IVPB Q12 KELLY Last Admin: 02/10/18 09:13 Dose: 100 mls/hr - Labs Labs: 02/10/18 06:00 02/10/18 06:00 PT 22.8 SECONDS (9.4-12.5) H 02/08/18 23:55 INR 1.97 (0.93-1.08) H 02/08/18 23:55 APTT 42.5 Seconds (25.1-36.5) H 02/08/18 23:55 - Constitutional Appears: Other (intubated, sedated, paralyzed) - ENT Exam Additional comments: ET tube in place - Respiratory Exam Respiratory Exam: Decreased Breath Sounds - Cardiovascular Exam Cardiovascular Exam: +S1, +S2 - GI/Abdominal Exam GI & Abdominal Exam: Soft. absent: Tenderness Assessment and Plan - Assessment and Plan (Free Text) Plan: Assessment Systemic Inflammatory response syndrome with hypotension after cardiac arrest, with ventilator-dependent respiratory failure and status epilepticus, consider severe sepsis / septic on top of caridogenic shock from right sided HCAP / aspiration pneumonia on top of acute on chronic CHF history left leg skin and skin structure infection, growing Roultella and MSSA, clinically improving history of right leg skin and skin structure infection with Pseudomonas and MRSA HTN COPD S/P pacemaker placement chronic atrial fibrillation on anticoagulation S/P right knee replacement chronic CHF with dilated cardiomyopathy Plan on Zyvox day 3 and will switch Merrem to Azactam after coversation with Dr. Arias since patient is continually seizing - will also add Doxycycline and will follow up final culture results (so far negative) discussed with family that overall prognosis is poor and they understand - patient is currently in a medically-induced coma because of seizures will continue to monitor clinically
[2018-02-10] MEDS ORDERED: PHENobarbital 130 mg/ml Inj Syringe IV ONE (13:00)
--- NOTE | 2018-02-10 13:09 | CP.PCM.PN ---
Subjective - Date & Time of Evaluation Date of Evaluation: 02/10/18 Time of Evaluation: 10:30 - Subjective Subjective: patient is intubated, sedated, with twitching movements of his mouth and right arm. overnight he had several episodes of twitching movements of his shoulder and arm, decreased in intensity now. EEG shows several seizures on capture today. Spoke to family with Dr. rowe about gravity of patient who i believe is now in status epilepticus. I have increased his depakote to 1500 mg bid, and keppra is 1500 mg bid. Family would like to make patient DNR but they woudl also like everything done. They do not want to transfer the patient for CVeeg monitoring. We will place the patient in pentobarb coma now and observe. on exam: no blink to threat. No dolls eyes, no gag, no corneals. twitching of mouth, rhythmic in nature. no spontaneous movement of limbs, no response to verbal stimuli. +2 dtr ul and ll bl. Toes downgoing. Objective - Vital Signs/Intake and Output Vital Signs (last 24 hours): Temp Pulse Resp BP Pulse Ox 98.6 F 70 20 115/79 100 02/10/18 10:50 02/10/18 10:50 02/10/18 08:23 02/10/18 10:00 02/10/18 10:50 Intake and Output: 02/10/18 02/10/18 06:59 18:59 Intake Total 1254 3330 Output Total 450 Balance 1254 2880 - Medications Medications: Current Medications Artificial Tears (Artificial Tears Opht Oint) 0 gm OU Q6 KELLY Last Admin: 02/10/18 11:57 Dose: 1 applic Heparin Sodium (Porcine) (Heparin) 5,000 units SC Q12 KELLY PRN Reason: Protocol Last Admin: 02/10/18 09:14 Dose: 5,000 units Propofol (Diprivan) 1,000 mg in 100 mls @ 3 mls/hr IV .Q24H PRN; Protocol; 5 MCG/KG/MIN PRN Reason: TITRATE PER MD ORDER Last Admin: 02/10/18 06:08 Dose: 5 mcg/kg/min, 3 mls/hr NOREPINEPHRINE BIT/0.9 % NACL (Levophed 4 Mg/ 250 Ml Ns Premixed) 4 mg in 250 mls @ 15 mls/hr IV .[id number] PRN; Protocol; 4 MCG/MIN PRN Reason: TITRATE PER MD ORDER Last Titration: 02/10/18 07:38 Dose: 20 mcg/min, 75 mls/hr Fentanyl Citrate (Fentanyl Citrate/Sodium Chloride 1 Mg/100 Ml) 1,000 mcg in 100 mls @ 2 mls/hr IV .Q24H PRN; Protocol; 20 MCG/HR PRN Reason: TITRATE PER MD ORDER Last Titration: 02/09/18 19:00 Dose: Infused Vasopressin 20 units/ Sodium (Chloride) 101 mls @ 9.09 mls/hr IV .Q11H7M KELLY; 0.03 U/MIN PRN Reason: Protocol Last Admin: 02/09/18 22:15 Dose: 9.09 mls/hr Linezolid (Zyvox 600mg/300ml D5w) 600 mg in 300 mls @ 200 mls/hr IVPB Q12 KELLY PRN Reason: Protocol Stop: 02/18/18 10:01 Last Admin: 02/10/18 09:15 Dose: 200 mls/hr Midazolam 100 mg/100ml in NS (Midazolam 100 Mg/100ml In Ns) 100 mg in 100 mls @ 1 mls/hr IV .Q24H PRN; Protocol; 1 MG/HR PRN Reason: Agitation Last Titration: 02/09/18 23:00 Dose: 3 mg/hr, 3 mls/hr Dextrose/Sodium Chloride (Dextrose 5%/0.9% Ns 1000 Ml) 1,000 mls @ 140 mls/hr IV .Q7H9M KELLY Last Admin: 02/10/18 06:08 Dose: 140 mls/hr Valproate Sodium 1,000 mg/ (Sodium Chloride) 110 mls @ 100 mls/hr IVPB Q12 KELLY Last Admin: 02/10/18 09:13 Dose: 100 mls/hr Levetiracetam 1,500 mg/ Sodium (Chloride) 115 mls @ 460 mls/hr IV Q12H KELLY Aztreonam (Azactam 1 Gm) 100 mls @ 100 mls/hr IVPB Q8 KELLY PRN Reason: Protocol Stop: 02/17/18 11:31 Last Admin: 02/10/18 11:56 Dose: 100 mls/hr Doxycycline Hyclate 100 mg/ (Sodium Chloride) 100 mls @ 100 mls/hr IVPB Q12 KELLY PRN Reason: Protocol Last Admin: 02/10/18 11:53 Dose: 100 mls/hr Potassium Chloride (Potassium Chloride 20 Meq/100 Ml) 20 meq in 100 mls @ 50 mls/hr IVPB ONCE ONE Stop: 02/10/18 13:45 Last Admin: 02/10/18 12:14 Dose: 50 mls/hr Phenobarbital (Phenobarbital Inj) 1,000 mg IV ONCE ONE Stop: 02/10/18 13:01 - Labs Labs: 02/10/18 06:00 02/10/18 06:00 PT 22.8 SECONDS (9.4-12.5) H 02/08/18 23:55 INR 1.97 (0.93-1.08) H 02/08/18 23:55 APTT 42.5 Seconds (25.1-36.5) H 02/08/18 23:55 Assessment and Plan - Assessment and Plan (Free Text) Assessment: 67 yr old male in focal status epilepticus, s/p cardiac arrest, who has anoxic encephalopathy with poor prognosis. Plan: 1. pentobarbital coma at 10 mg/kg then 2mg/kg/day 2. EEG in am 3. Medical management per ICU team dr. marie
[2018-02-10] MEDS ORDERED: PHENobarbital 1,000 MG in Sodium Chloride 0.9% 100 ML IVPB ONE (13:45)
[2018-02-10] MEDS: Midazolam 100 mg/100ml in NS 100 MG/100 ML SOL IV PRN (15:44)
[2018-02-10] MEDS: levETIRAcetam 1,500 MG in Sodium Chloride 0.9% 100 ML IV SCH (17:19)
[2018-02-10] MEDS: PHENobarbital 130 mg/ml Inj Syringe IV SCH (17:22)
[2018-02-11] MEDS: PHENobarbital 130 mg/ml Inj Syringe IV SCH ×4 (01:53→17:44)
[2018-02-11] MEDS: NOREPINEPHRINE BIT/0.9 % NACL 4 MG/250 ML BAG IV PRN ×6 (02:03→21:34)
[2018-02-11] MEDS: Propofol 10 mg/ml 1,000 MG/100 ML VIAL IV PRN ×2 (02:38→21:31)
[2018-02-11 05:10] LABS: ARTERIAL BLOOD GAS HCO3 20.9 mmol/L (21-28); ARTERIAL BLOOD GAS HEMOGLOBIN 10.8 g/dL (11.7-17.4); ARTERIAL BLOOD GAS O2 CAPACITY 15.5 mL/dl (16-24); ARTERIAL BLOOD GAS O2 CONTENT 15.5 ML/dl (15-23); ARTERIAL BLOOD GAS O2 SAT 99.7 % (95-98); ARTERIAL BLOOD GAS PCO2 28 mm/Hg (35-45); ARTERIAL BLOOD GAS PH 7.48 (7.35-7.45); ARTERIAL BLOOD GAS TCO2 21.8 mmol.L (22-28)
[2018-02-11] MEDS: levETIRAcetam 1,500 MG in Sodium Chloride 0.9% 100 ML IV SCH ×2 (05:13→17:42)
[2018-02-11] MEDS: Aztreonam 1 Gm in NS 100mL 100 ML IVPB SCH ×3 (05:20→21:30)
[2018-02-11] MEDS: Mineral Oil/Petrolatum Opht Oint(3.5 gm) OU SCH ×4 (05:32→17:41)
--- NOTE | 2018-02-11 08:08 | RAD ---
HISTORY: ett COMPARISON: 02/10/2018 FINDINGS: LUNGS: No active pulmonary disease. PLEURA: No significant pleural effusion identified, no pneumothorax apparent. CARDIOVASCULAR: Moderate cardiomegaly and moderate vascular congestion unchanged. Small left effusion. Endotracheal tube in satisfactory position OSSEOUS STRUCTURES: No significant abnormalities. VISUALIZED UPPER ABDOMEN: Normal. OTHER FINDINGS: None. IMPRESSION: Moderate cardiomegaly and moderate vascular congestion unchanged. Small left effusion. Endotracheal tube in satisfactory position
--- NOTE | 2018-02-11 08:27 | CP.PCM.PN ---
Subjective - Date & Time of Evaluation Date of Evaluation: 02/11/18 Time of Evaluation: 07:00 - Subjective Subjective: Events noted. EEG showed seizure activity > pentobarbital coma, as per neuro. On levo., vent. I spoke with his and fatherin-law at the bedside. DNR/ DNI noted. V/S noted. V. Paced. PE: Lungs: rhonchi Cor: S1S2 Abd.: soft Ext.: + edema and discoloration Neuro.: sedated I/O= [id number] Labs and ABGs noted, CMP pending. BC X2 NG at 3 days CXR: no change Objective - Vital Signs/Intake and Output Vital Signs (last 24 hours): Temp Pulse Resp BP Pulse Ox 99.0 F 73 20 110/68 100 02/11/18 04:50 02/11/18 06:00 02/10/18 08:23 02/11/18 04:00 02/11/18 04:50 Intake and Output: 02/11/18 02/11/18 06:59 18:59 Intake Total 4400 Output Total 1200 Balance 3200 - Medications Medications: Current Medications Artificial Tears (Artificial Tears Opht Oint) 0 gm OU Q6 KELLY Last Admin: 02/11/18 05:32 Dose: 2 applic Heparin Sodium (Porcine) (Heparin) 5,000 units SC Q12 KELLY PRN Reason: Protocol Last Admin: 02/10/18 23:40 Dose: 5,000 units Propofol (Diprivan) 1,000 mg in 100 mls @ 3 mls/hr IV .Q24H PRN; Protocol; 5 MCG/KG/MIN PRN Reason: TITRATE PER MD ORDER Last Admin: 02/11/18 02:38 Dose: 5 mcg/kg/min, 3 mls/hr NOREPINEPHRINE BIT/0.9 % NACL (Levophed 4 Mg/ 250 Ml Ns Premixed) 4 mg in 250 mls @ 15 mls/hr IV .[id number] PRN; Protocol; 4 MCG/MIN PRN Reason: TITRATE PER MD ORDER Last Admin: 02/11/18 05:33 Dose: 20 mcg/min, 75 mls/hr Fentanyl Citrate (Fentanyl Citrate/Sodium Chloride 1 Mg/100 Ml) 1,000 mcg in 100 mls @ 2 mls/hr IV .Q24H PRN; Protocol; 20 MCG/HR PRN Reason: TITRATE PER MD ORDER Last Titration: 02/09/18 19:00 Dose: Infused Vasopressin 20 units/ Sodium (Chloride) 101 mls @ 9.09 mls/hr IV .Q11H7M KELLY; 0.03 U/MIN PRN Reason: Protocol Last Admin: 02/10/18 19:53 Dose: 9.09 mls/hr Linezolid (Zyvox 600mg/300ml D5w) 600 mg in 300 mls @ 200 mls/hr IVPB Q12 KELLY PRN Reason: Protocol Stop: 02/18/18 10:01 Last Admin: 02/10/18 23:25 Dose: 200 mls/hr Midazolam 100 mg/100ml in NS (Midazolam 100 Mg/100ml In Ns) 100 mg in 100 mls @ 1 mls/hr IV .Q24H PRN; Protocol; 1 MG/HR PRN Reason: Agitation Last Admin: 02/10/18 15:44 Dose: 3 mg/hr, 3 mls/hr Dextrose/Sodium Chloride (Dextrose 5%/0.9% Ns 1000 Ml) 1,000 mls @ 140 mls/hr IV .Q7H9M KELLY Last Admin: 02/10/18 20:00 Dose: 140 mls/hr Valproate Sodium 1,000 mg/ (Sodium Chloride) 110 mls @ 100 mls/hr IVPB Q12 KELLY Last Admin: 02/10/18 22:04 Dose: 100 mls/hr Levetiracetam 1,500 mg/ Sodium (Chloride) 115 mls @ 460 mls/hr IV Q12H KELLY Last Admin: 02/11/18 05:13 Dose: 460 mls/hr Aztreonam (Azactam 1 Gm) 100 mls @ 100 mls/hr IVPB Q8 KELLY PRN Reason: Protocol Stop: 02/17/18 11:31 Last Admin: 02/11/18 05:20 Dose: 100 mls/hr Doxycycline Hyclate 100 mg/ (Sodium Chloride) 100 mls @ 100 mls/hr IVPB Q12 KELLY PRN Reason: Protocol Last Admin: 02/10/18 22:09 Dose: 100 mls/hr Phenobarbital (Phenobarbital Inj) 50 mg IV Q6 KELLY Last Admin: 02/11/18 05:51 Dose: 50 mg - Labs Labs: 02/10/18 06:00 02/10/18 06:00 PT 22.8 SECONDS (9.4-12.5) H 02/08/18 23:55 INR 1.97 (0.93-1.08) H 02/08/18 23:55 APTT 42.5 Seconds (25.1-36.5) H 02/08/18 23:55 Assessment and Plan - Assessment and Plan (Free Text) Assessment: S/P cardiac arrest at home with prolonged down time Anoxic encephalopathy, Status Epilepticus, Pentobarbital coma Acute on chronic kidney disease CCM, severe, etoh related Chronic CHF Bilat. LE cellulitis and non-healing wound LLE ICD/NSVT Prostate cancer, seed implants Right TKR Chronic ETOH, recently stopped 12/25 Former Smoker Plan: Continue support. DNR/DNI noted As per Neuro., Intensivists, Dr. Mccormack, Palliative Care, ID I spoke with his and father at the bedside again today. Monitor: labs, I/O, sats., neuro status, etc. Will follow Poor prognosis for neuro recovery noted.
--- NOTE | 2018-02-11 08:56 | PN ---
DATE: 02/10/2018 SUBJECTIVE: Patient is 67 years old, remains sedated, intubated, currently on pressors. Had family by the bedside, want to transfer to [place], but patient was seen by neurologist who explained the situation since patient has been having persistent involuntary movement, his Keppra dose has been increased, he remains minimally responsive. OBJECTIVE: VITAL SIGNS: He is afebrile, pulse 70, respirations 18, and blood pressure 115/79. LUNGS: Bilateral fair airflow. HEART: S1, S2 audible. Tachycardic. ABDOMEN: Soft, obese, and nontender. No rebound. No guarding. EXTREMITIES: Bilateral leg, +2 edema. LABORATORY EXAM: WBC 12.6, hemoglobin 11.3, hematocrit 32.6, and platelets 176. PT 22.8. INR 1.97. Chemistry: Sodium 130, potassium 3.5, chloride 101, CO2 of 22. BUN 27, creatinine 1.9. Blood sugar of 157. Albumin is 1.8. Blood cultures and urine cultures are negative. X-ray of chest done today shows [id number] cardiomegaly, slight improvement in vascular congestion. ASSESSMENT: 1. Status post cardiac arrest. 2. Hypoxic encephalopathy. 3. Seizure disorder. 4. Respiratory failure. 5. Systemic inflammatory response syndrome. 6. Congestive heart failure with dilated cardiomyopathy. 7. History of chronic obstructive pulmonary disease. 8. Status post pacemaker placement. 9. Chronic atrial fibrillation, on anticoagulant. PLAN: Currently, patient is on Azactam. He is on IV fluids, doxycycline. DVT prophylaxis. He is on Keppra 1500 every 12 hours and pressors, we will continue that. Depakote has been started. Prognosis is poor. Family made . Clif Lala MD
[2018-02-11] MEDS: Valproate 1,000 MG in Sodium Chloride 0.9% 100 ML IVPB SCH ×2 (09:16→21:30)
[2018-02-11] MEDS: Linezolid 600 mg in D5W 300 ml 600 MG/300 ML BAG IVPB SCH ×2 (09:27→21:31)
--- NOTE | 2018-02-11 10:27 | CP.CCUPN ---
<HelenHaMary - Last Filed: 02/11/18 10:27> CCU Subjective - Physician Review Subjective (Free Text): 02/10/18 11:49 PGY-[address] Hill EEG done today. Family meeting with Dr. Hill and Dr Arias. Family agrees to DNR.DNI 02/11/18 10:25 No shaking observe. No acute event overnight CCU Objective - Vital Signs / Intake & Output Intake and Output (Last 8hrs): Intake & Output 02/10/18 02/11/18 02/11/18 22:59 06:59 14:59 Intake Total 3272 3900 250 Output Total 500 1200 Balance 2772 2700 250 Weight 197 lb 3 oz Intake: IV 2932 2000 250 Right Antecubital 10 Right Internal Jugular 2300 1400 Right Wrist 72 Oral 0 Tube Feeding 340 500 Albumin 800 Other 600 Output: Urine 500 1200 Urethral (Renteria) 500 1200 Other: # Bowel Movements 0 1 - Physical Exam Head: Positive for: Atraumatic, Normocephalic Pupils: Positive for: Other (fixed and dilated) Extroacular Muscles: Positive for: EOMI Conjunctiva: Positive for: Normal Mouth: Positive for: Moist Mucous Membranes Neck: Negative for: JVD Respiratory/Chest: Positive for: Good Air Exchange, Rhonchi (right base). Negative for: Respiratory Distress, Accessory Muscle Use Cardiovascular: Positive for: Regular Rate and Rhythm, Normal S1, S2. Negative for: Murmurs Abdomen: Negative for: Tenderness, Distention, Normal Bowel Sounds (hypoactive) , Peritoneal Signs, Rebound, Guarding Back: Positive for: Normal Inspection Upper Extremity: Positive for: Normal Inspection. Negative for: Cyanosis, Edema Lower Extremity: Positive for: Normal Inspection, Swelling. Negative for: Edema Neurological: Positive for: CN II-XII Intact, Other (intubated, no w/d to pain , no gag reflex) Skin: Positive for: Warm, Dry, Normal Color. Negative for: Rashes Psychiatric: Positive for: Other (sedated) - Medications Active Medications: Active Medications Generic Name Dose Route Start Last Admin Trade Name Freq PRN Reason Stop Dose Admin Artificial Tears 0 gm 02/08/18 18:30 02/11/18 05:32 Artificial Tears Opht Oint OU 2 applic Q6 KELLY Administration Heparin Sodium (Porcine) 5,000 units 02/08/18 22:00 02/11/18 09:17 Heparin SC 5,000 units Q12 KELLY Administration Protocol Propofol 1,000 mg in 100 mls @ 3 mls/hr 02/07/18 21:17 02/11/18 02:38 Diprivan IV 5 mcg/kg/min .Q24H PRN 3 mls/hr TITRATE PER MD ORDER Administration Protocol 5 MCG/KG/MIN NOREPINEPHRINE BIT/0.9 % NACL 4 mg in 250 mls @ 15 mls/hr 02/07/18 21:21 01/24 09:28 Levophed 4 Mg/ 250 Ml Ns Premixed IV 20 mcg/min .[id number] PRN 75 mls/hr TITRATE PER MD ORDER Administration Protocol 4 MCG/MIN Fentanyl Citrate 1,000 mcg in 100 mls @ 2 mls/hr 02/08/18 12:01 02/09/18 19: 00 Fentanyl Citrate/Sodium Chloride 1 Mg/100 Ml IV Infused .Q24H PRN Titration TITRATE PER MD ORDER Protocol 20 MCG/HR Vasopressin 20 units/ Sodium 101 mls @ 9.09 mls/hr 02/09/18 00:00 02/10/18 19 :53 Chloride IV 9.09 mls/hr .[id number] KELLY Administration Protocol 0.03 U/MIN Linezolid 600 mg in 300 mls @ 200 mls/hr 02/09/18 10:00 02/11/18 09:27 Zyvox 600mg/300ml D5w IVPB 02/18/18 10:01 200 mls/hr Q12 KELLY Administration Protocol Midazolam 100 mg/100ml in NS 100 mg in 100 mls @ 1 mls/hr 02/09/18 11:13 12/25 15:44 Midazolam 100 Mg/100ml In Ns IV 3 mg/hr .Q24H PRN 3 mls/hr Agitation Administration Protocol 1 MG/HR Dextrose/Sodium Chloride 1,000 mls @ 140 mls/hr 02/09/18 12:45 02/10/18 20:00 Dextrose 5%/0.9% Ns 1000 Ml IV 140 mls/hr .[id number] KELLY Administration Valproate Sodium 1,000 mg/ 110 mls @ 100 mls/hr 02/09/18 22:00 02/11/18 09:16 Sodium Chloride IVPB 100 mls/hr Q12 KELLY Administration Levetiracetam 1,500 mg/ Sodium 115 mls @ 460 mls/hr 02/10/18 18:00 02/11/18 05:13 Chloride IV 460 mls/hr Q12H KELLY Administration Aztreonam 100 mls @ 100 mls/hr 02/10/18 11:30 02/11/18 05:20 Azactam 1 Gm IVPB 02/17/18 11:31 100 mls/hr Q8 KELLY Administration Protocol Doxycycline Hyclate 100 mg/ 100 mls @ 100 mls/hr 02/10/18 11:30 02/11/18 09: 17 Sodium Chloride IVPB 100 mls/hr Q12 KELLY Administration Protocol Phenobarbital 50 mg 02/10/18 18:00 02/11/18 05:51 Phenobarbital Inj IV 50 mg Q6 KELLY Administration - Patient Studies Lab Studies: Microbiology Studies 02/10/18 15:00 Gram Stain - Final Leg - Left Lab Studies 02/11/18 02/11/18 02/11/18 Range/Units 05:52 05:00 01:16 pCO2 28 L (35-45) mm/Hg pO2 279.0 H (80-100) mm/Hg HCO3 20.9 L (21-28) mmol/L ABG pH 7.48 H (7.35-7.45) ABG Total CO2 21.8 L (22-28) mmol.L ABG O2 Saturation 99.7 H (95-98) % ABG O2 Content 15.5 (15-23) ML/dl ABG Base Excess -1.7 (-2.0-3.0) mmol/L ABG Hemoglobin 10.8 L (11.7-17.4) g/dL ABG Carboxyhemoglobin 1.4 (0.5-1.5) % POC ABG HHb (Measured) 0.3 (0-5) % ABG Methemoglobin 0.9 (0.0-3.0) % ABG O2 Capacity 15.5 L (16-24) mL/dl Hgb O2 Saturation 97.3 (95.0-98.0) % FiO2 60.0 % POC Glucose (mg/dL) 147 H 153 H (65-110) mg/dL 02/10/18 02/10/1802/10/18 Range/Units 21:53 15:53 11:32 pCO2 (35-45) mm/Hg pO2 (80-100) mm/Hg HCO3 (21-28) mmol/L ABG pH (7.35-7.45) ABG Total CO2 (22-28) mmol.L ABG O2 Saturation (95-98) % ABG O2 Content (15-23) ML/dl ABG Base Excess (-2.0-3.0) mmol/L ABG Hemoglobin (11.7-17.4) g/dL ABG Carboxyhemoglobin (0.5-1.5) % POC ABG HHb (Measured) (0-5) % ABG Methemoglobin (0.0-3.0) % ABG O2 Capacity (16-24) mL/dl Hgb O2 Saturation (95.0-98.0) % FiO2 % POC Glucose (mg/dL) 160 H 157 H 155 H (65-110) mg/dL Laboratory Results - last 24 hr 02/10/18 02/10/18 02/10/18 11:32 15:53 21:53 pCO2 pO2 HCO3 ABG pH ABG Total CO2 ABG O2 Saturation ABG O2 Content ABG Base Excess ABG Hemoglobin ABG Carboxyhemoglobin POC ABG HHb (Measured) ABG Methemoglobin ABG O2 Capacity Hgb O2 Saturation FiO2 POC Glucose (mg/dL) 155 H 157 H 160 H 02/11/18 02/11/18 02/11/18 01:16 05:00 05:52 pCO2 28 L pO2 279.0 H HCO3 20.9 L ABG pH 7.48 H ABG Total CO2 21.8 L ABG O2 Saturation 99.7 H ABG O2 Content 15.5 ABG Base Excess -1.7 ABG Hemoglobin 10.8 L ABG Carboxyhemoglobin 1.4 POC ABG HHb (Measured) 0.3 ABG Methemoglobin 0.9 ABG O2 Capacity 15.5 L Hgb O2 Saturation 97.3 FiO2 60.0 POC Glucose (mg/dL) 153 H 147 H Fingerstick Blood Sugar Results: 146 Assessment/Plan - Assessment and Plan (Free Text) Plan: Mr Rajput, 67 M, with PMHx HTN, paroxysmal A-fib (on Eliquis), cardiomyopathy (s/p AICD), recent lower extremity cellulitis growing MRSA and pseudomonas, and ETOH abuse being admitted to the ICU s/p cardiac arrest. He had V-tach (s/p cardioversion in the field) followed by PEA arrest in the ED (s/ p treatment per ACLS protocol). Since ROSC, the patient has been unresponsive, started on hypothermia protocol, and rewarm on Saturday (02/09). He was found to have b/l pleural effusion likely pneumonia vs aspiration pneumonitis. He has cardiogenic shock vs septiv shock requiring empiric IV antibiotics and Levophed drip. EEG was done today/. Pt was seen having seizures vs subclinical seizures. Pt has YE with oliguria likely due to low CO. Neuro - EEG showed seizure. - Pheobarbital 15mg/kg bolus; maintain at 2mg/kg/day - Keppra 1500mg Q12 - Valproate 1000mg Q12 - maintain euthermic - sedated on propofol 5 Pulmonary - Intubated on PRVC 550/18/5/60%, protective lung ventilation - HOB >30 - CXR: b/l infiltrate with pulm edema - Maintain O2 Sat> 92% - ABG repeat AM Cardiovascular - EKG reviewed, possibility of new ischemic changes, now s/p cardiac arrest, known CHF w/ pacemaker - AICD interrogated. No preceeding events. - BP support on levophed 20, vasopressin 0.03 - Maintain MAP >65 - D5/NS @ 50 Gastrointestinal - Tube feeding - b/l pleural effusion, worse in SUSAN, LLL vs aspiration. Rib fracture. cirrhosis. small volume ascites - Protonix IV Renal/Electrolytes - Monitor urine output, strict IxOs - Avoid nephrotoxins - Avoid hyperchloremia Infectious disease - Known lower extremity cellulitis, recently discharged on zyvox but did not fill due to some insurance reason and instead was on bactrim - Aztreonam, Doxycyclin Q12, Linezolid 600mg Q12 - Procalcitonin Hematologic - No active bleeding Endocrine - Maintain euglycemia 140-180 per NICE-SUGAR trial GI/DVT ppx: protonix; heparin SQ Dispo plan: - DNR/DNI - Palliative on board s/r/d/w Dr. Hill <Osmin Hill - Last Filed: 02/11/18 15:00> CCU Objective - Vital Signs / Intake & Output Intake and Output (Last 8hrs): Intake & Output 02/10/18 02/11/18 02/11/18 22:59 06:59 14:59 Intake Total 3272 3900 500 Output Total 500 1200 Balance 2772 2700 500 Weight 197 lb 3 oz Intake: IV 2932 2000 500 Right Antecubital 10 Right Internal Jugular 2300 1400 Right Wrist 72 Oral 0 Tube Feeding 340 500 Albumin 800 Other 600 Output: Urine 500 1200 Urethral (Renteria) 500 1200 Other: # Bowel Movements 0 1 - Medications Active Medications: Active Medications Generic Name Dose Route Start Last Admin Trade Name Freq PRN Reason Stop Dose Admin Artificial Tears 0 gm 02/08/18 18:30 02/11/18 13:15 Artificial Tears Opht Oint OU 1 applic Q6 KELLY Administration Heparin Sodium (Porcine) 5,000 units 02/08/18 22:00 02/11/18 09:17 Heparin SC 5,000 units Q12 KELLY Administration Protocol Hydrocortisone Sodium Succinate 50 mg 02/11/18 14:00 Solu-Cortef IVP Q8 KELLY Propofol 1,000 mg in 100 mls @ 3 mls/hr 02/07/18 21:17 02/11/18 02:38 Diprivan IV 5 mcg/kg/min .Q24H PRN 3 mls/hr TITRATE PER MD ORDER Administration Protocol 5 MCG/KG/MIN NOREPINEPHRINE BIT/0.9 % NACL 4 mg in 250 mls @ 15 mls/hr 02/07/18 21:21 01/24 13:14 Levophed 4 Mg/ 250 Ml Ns Premixed IV 20 mcg/min .[id number] PRN 75 mls/hr TITRATE PER MD ORDER Administration Protocol 4 MCG/MIN Fentanyl Citrate 1,000 mcg in 100 mls @ 2 mls/hr 02/08/18 12:01 02/09/18 19: 00 Fentanyl Citrate/Sodium Chloride 1 Mg/100 Ml IV Infused .Q24H PRN Titration TITRATE PER MD ORDER Protocol 20 MCG/HR Vasopressin 20 units/ Sodium 101 mls @ 9.09 mls/hr 02/09/18 00:00 02/10/18 19 :53 Chloride IV 9.09 mls/hr .[id number] KELLY Administration Protocol 0.03 U/MIN Linezolid 600 mg in 300 mls @ 200 mls/hr 02/09/18 10:00 02/11/18 09:27 Zyvox 600mg/300ml D5w IVPB 02/18/18 10:01 200 mls/hr Q12 KELLY Administration Protocol Midazolam 100 mg/100ml in NS 100 mg in 100 mls @ 1 mls/hr 02/09/18 11:13 12/25 15:44 Midazolam 100 Mg/100ml In Ns IV 3 mg/hr .Q24H PRN 3 mls/hr Agitation Administration Protocol 1 MG/HR Valproate Sodium 1,000 mg/ 110 mls @ 100 mls/hr 02/09/18 22:00 02/11/18 09:16 Sodium Chloride IVPB 100 mls/hr Q12 KELLY Administration Levetiracetam 1,500 mg/ Sodium 115 mls @ 460 mls/hr 02/10/18 18:00 02/11/18 05:13 Chloride IV 460 mls/hr Q12H KELLY Administration Aztreonam 100 mls @ 100 mls/hr 02/10/18 11:30 02/11/18 05:20 Azactam 1 Gm IVPB 02/17/18 11:31 100 mls/hr Q8 KELLY Administration Protocol Doxycycline Hyclate 100 mg/ 100 mls @ 100 mls/hr 02/10/18 11:30 02/11/18 09: 17 Sodium Chloride IVPB 100 mls/hr Q12 KELLY Administration Protocol Dextrose/Sodium Chloride 1,000 mls @ 50 mls/hr 02/11/18 10:27 02/11/18 13:16 Dextrose 5%/0.9% Ns 1000 Ml IV 50 mls/hr .Q20H KELLY Administration Phenobarbital 50 mg 02/10/18 18:00 02/11/18 13:19 Phenobarbital Inj IV 50 mg Q6 KELLY Administration - Patient Studies Lab Studies: Microbiology Studies 02/10/18 15:00 Gram Stain - Final Leg - Left Wound Culture - Preliminary NO GROWTH AFTER 24 HOURS Lab Studies 02/11/18 02/11/18 02/11/18 Range/Units 11:15 11:00 11:00 WBC 14.1 H (4.5-11.0) 10^3/ul RBC 3.64 (3.5-6.1) 10^6/uL Hgb 11.1 L (14.0-18.0) g/dL Hct 32.5 L (42.0-52.0) % MCV 89.3 (80.0-105.0) fl MCH 30.5 (25.0-35.0) pg MCHC 34.2 (31.0-37.0) g/dl RDW 18.6 H (11.5-14.5) % Plt Count 156 (120.0-450.0) 10^3/uL MPV 9.9 (7.0-11.0) fl Gran % 91.7 H (50.0-68.0) % Lymph % (Auto) 4.2 L (22.0-35.0) % Stevens % (Auto) 3.9 (1.0-6.0) % Eos % (Auto) 0.2 L (1.5-5.0) % Baso % (Auto) 0.0 (0.0-3.0) % Gran # 12.97 H (1.4-6.5) Lymph # (Auto) 0.6 L (1.2-3.4) Stevens # (Auto) 0.6 (0.1-0.6) Eos # (Auto) 0.0 (0.0-0.7) Baso # (Auto) 0.00 (0.0-2.0) K/mm3 Neutrophils % (Manual) 95 H (50.0-70.0) % Band Neutrophils % 1 (0-2) % Lymphocytes % (Manual) 3 L (22.0-35.0) % Monocytes % (Manual) 1 (1.0-6.0) % Platelet Evaluation Normal (NORMAL) pCO2 (35-45) mm/Hg pO2 (80-100) mm/Hg HCO3 (21-28) mmol/L ABG pH (7.35-7.45) ABG Total CO2 (22-28) mmol.L ABG O2 Saturation (95-98) % ABG O2 Content (15-23) ML/dl ABG Base Excess (-2.0-3.0) mmol/L ABG Hemoglobin (11.7-17.4) g/dL ABG Carboxyhemoglobin (0.5-1.5) % POC ABG HHb (Measured) (0-5) % ABG Methemoglobin (0.0-3.0) % ABG O2 Capacity (16-24) mL/dl Hgb O2 Saturation (95.0-98.0) % FiO2 % Sodium 134 (132-148) mmol/L Potassium 3.0 L (3.6-5.0) mmol/L Chloride 104 (98-107) mmol/L Carbon Dioxide 21 (21-33) mmol/L Anion Gap 12 (10-20) BUN 22 H (7-21) mg/dL Creatinine 1.4 (0.8-1.5) mg/dl Est GFR ( Amer) > 60 Est GFR (Non-Af Amer) 50 POC Glucose (mg/dL) 191 H (65-110) mg/dL Random Glucose 205 H (70-110) mg/dL Calcium 7.3 L (8.4-10.5) mg/dL Total Bilirubin 1.2 (0.2-1.3) mg/dL AST 31 (17-59) U/L ALT 30 (7-56) U/L Alkaline Phosphatase 90 (38-126) U/L Total Protein 4.2 L (5.8-8.3) g/dL Albumin 1.9 L (3.0-4.8) g/dL Globulin 2.3 gm/dL Albumin/Globulin Ratio 0.8 L (1.1-1.8) 02/11/18 02/11/18 02/11/18 Range/Units 05:52 05:00 01:16 WBC (4.5-11.0) 10^3/ul RBC (3.5-6.1) 10^6/uL Hgb (14.0-18.0) g/dL Hct (42.0-52.0) % MCV (80.0-105.0) fl MCH (25.0-35.0) pg MCHC (31.0-37.0) g/dl RDW (11.5-14.5) % Plt Count (120.0-450.0) 10^3/uL MPV (7.0-11.0) fl Gran % (50.0-68.0) % Lymph % (Auto) (22.0-35.0) % Stevens % (Auto) (1.0-6.0) % Eos % (Auto) (1.5-5.0) % Baso % (Auto) (0.0-3.0) % Gran # (1.4-6.5) Lymph # (Auto) (1.2-3.4) Stevens # (Auto) (0.1-0.6) Eos # (Auto) (0.0-0.7) Baso # (Auto) (0.0-2.0) K/mm3 Neutrophils % (Manual) (50.0-70.0) % Band Neutrophils % (0-2) % Lymphocytes % (Manual) (22.0-35.0) % Monocytes % (Manual) (1.0-6.0) % Platelet Evaluation (NORMAL) pCO2 28 L (35-45) mm/Hg pO2 279.0 H (80-100) mm/Hg HCO3 20.9 L (21-28) mmol/L ABG pH 7.48 H (7.35-7.45) ABG Total CO2 21.8 L (22-28) mmol.L ABG O2 Saturation 99.7 H (95-98) % ABG O2 Content 15.5 (15-23) ML/dl ABG Base Excess -1.7 (-2.0-3.0) mmol/L ABG Hemoglobin 10.8 L (11.7-17.4) g/dL ABG Carboxyhemoglobin 1.4 (0.5-1.5) % POC ABG HHb (Measured) 0.3 (0-5) % ABG Methemoglobin 0.9 (0.0-3.0) % ABG O2 Capacity 15.5 L (16-24) mL/dl Hgb O2 Saturation 97.3 (95.0-98.0) % FiO2 60.0 % Sodium (132-148) mmol/L Potassium (3.6-5.0) mmol/L Chloride (98-107) mmol/L Carbon Dioxide (21-33) mmol/L Anion Gap (10-20) BUN (7-21) mg/dL Creatinine (0.8-1.5) mg/dl Est GFR ( Amer) Est GFR (Non-Af Amer) POC Glucose (mg/dL) 147 H 153 H (65-110) mg/dL Random Glucose (70-110) mg/dL Calcium (8.4-10.5) mg/dL Total Bilirubin (0.2-1.3) mg/dL AST (17-59) U/L ALT (7-56) U/L Alkaline Phosphatase (38-126) U/L Total Protein (5.8-8.3) g/dL Albumin (3.0-4.8) g/dL Globulin gm/dL Albumin/Globulin Ratio (1.1-1.8) 02/10/18 02/10/18 02/10/18 Range/Units 21:53 15:53 11:32 WBC (4.5-11.0) 10^3/ul RBC (3.5-6.1) 10^6/uL Hgb (14.0-18.0) g/dL Hct (42.0-52.0) % MCV (80.0-105.0) fl MCH (25.0-35.0) pg MCHC (31.0-37.0) g/dl RDW (11.5-14.5) % Plt Count (120.0-450.0) 10^3/uL MPV (7.0-11.0) fl Gran % (50.0-68.0) % Lymph % (Auto) (22.0-35.0) % Stevens % (Auto) (1.0-6.0) % Eos % (Auto) (1.5-5.0) % Baso % (Auto) (0.0-3.0) % Gran # (1.4-6.5) Lymph # (Auto) (1.2-3.4) Stevens # (Auto) (0.1-0.6) Eos # (Auto) (0.0-0.7) Baso # (Auto) (0.0-2.0) K/mm3 Neutrophils % (Manual) (50.0-70.0) % Band Neutrophils % (0-2) % Lymphocytes % (Manual) (22.0-35.0) % Monocytes % (Manual) (1.0-6.0) % Platelet Evaluation (NORMAL) pCO2 (35-45) mm/Hg pO2 (80-100) mm/Hg HCO3 (21-28) mmol/L ABG pH (7.35-7.45) ABG Total CO2 (22-28) mmol.L ABG O2 Saturation (95-98) % ABG O2 Content (15-23) ML/dl ABG Base Excess (-2.0-3.0) mmol/L ABG Hemoglobin (11.7-17.4) g/dL ABG Carboxyhemoglobin (0.5-1.5) % POC ABG HHb (Measured) (0-5) % ABG Methemoglobin (0.0-3.0) % ABG O2 Capacity (16-24) mL/dl Hgb O2 Saturation (95.0-98.0) % FiO2 % Sodium (132-148) mmol/L Potassium (3.6-5.0) mmol/L Chloride (98-107) mmol/L Carbon Dioxide (21-33) mmol/L Anion Gap (10-20) BUN (7-21) mg/dL Creatinine (0.8-1.5) mg/dl Est GFR ( Amer) Est GFR (Non-Af Amer) POC Glucose (mg/dL) 160 H 157 H 155 H (65-110) mg/dL Random Glucose (70-110) mg/dL Calcium (8.4-10.5) mg/dL Total Bilirubin (0.2-1.3) mg/dL AST (17-59) U/L ALT (7-56) U/L Alkaline Phosphatase (38-126) U/L Total Protein (5.8-8.3) g/dL Albumin (3.0-4.8) g/dL Globulin gm/dL Albumin/Globulin Ratio (1.1-1.8) Laboratory Results - last 24 hr 02/10/18 02/10/18 02/10/18 11:32 15:53 21:53 WBC RBC Hgb Hct MCV MCH MCHC RDW Plt Count MPV Gran % Lymph % (Auto) Stevens % (Auto) Eos % (Auto) Baso % (Auto) Gran # Lymph # (Auto) Stevens # (Auto) Eos # (Auto) Baso # (Auto) Neutrophils % (Manual) Band Neutrophils % Lymphocytes % (Manual) Monocytes % (Manual) Platelet Evaluation pCO2 pO2 HCO3 ABG pH ABG Total CO2 ABG O2 Saturation ABG O2 Content ABG Base Excess ABG Hemoglobin ABG Carboxyhemoglobin POC ABG HHb (Measured) ABG Methemoglobin ABG O2 Capacity Hgb O2 Saturation FiO2 Sodium Potassium Chloride Carbon Dioxide Anion Gap BUN Creatinine Est GFR ( Amer) Est GFR (Non-Af Amer) POC Glucose (mg/dL) 155 H 157 H 160 H Random Glucose Calcium Total Bilirubin AST ALT Alkaline Phosphatase Total Protein Albumin Globulin Albumin/Globulin Ratio 02/11/18 02/11/18 02/11/18 01:16 05:00 05:52 WBC RBC Hgb Hct MCV MCH MCHC RDW Plt Count MPV Gran % Lymph % (Auto) Stevens % (Auto) Eos % (Auto) Baso % (Auto) Gran # Lymph # (Auto) Stevens # (Auto) Eos # (Auto) Baso # (Auto) Neutrophils % (Manual) Band Neutrophils % Lymphocytes % (Manual) Monocytes % (Manual) Platelet Evaluation pCO2 28 L pO2 279.0 H HCO3 20.9 L ABG pH 7.48 H ABG Total CO2 21.8 L ABG O2 Saturation 99.7 H ABG O2 Content 15.5 ABG Base Excess -1.7 ABG Hemoglobin 10.8 L ABG Carboxyhemoglobin 1.4 POC ABG HHb (Measured) 0.3 ABG Methemoglobin 0.9 ABG O2 Capacity 15.5 L Hgb O2 Saturation 97.3 FiO2 60.0 Sodium Potassium Chloride Carbon Dioxide Anion Gap BUN Creatinine Est GFR ( Amer) Est GFR (Non-Af Amer) POC Glucose (mg/dL) 153 H 147 H Random Glucose Calcium Total Bilirubin AST ALT Alkaline Phosphatase Total Protein Albumin Globulin Albumin/Globulin Ratio 02/11/18 02/11/18 02/11/18 11:00 11:00 11:15 WBC 14.1 H RBC 3.64 Hgb 11.1 L Hct 32.5 L MCV 89.3 MCH 30.5 MCHC 34.2 RDW 18.6 H Plt Count 156 MPV 9.9 Gran % 91.7 H Lymph % (Auto) 4.2 L Stevens % (Auto) 3.9 Eos % (Auto) 0.2 L Baso % (Auto) 0.0 Gran # 12.97 H Lymph # (Auto) 0.6 L Stevens # (Auto) 0.6 Eos # (Auto) 0.0 Baso # (Auto) 0.00 Neutrophils % (Manual) 95 H Band Neutrophils % 1 Lymphocytes % (Manual) 3 L Monocytes % (Manual) 1 Platelet Evaluation Normal pCO2 pO2 HCO3 ABG pH ABG Total CO2 ABG O2 Saturation ABG O2 Content ABG Base Excess ABG Hemoglobin ABG Carboxyhemoglobin POC ABG HHb (Measured) ABG Methemoglobin ABG O2 Capacity Hgb O2 Saturation FiO2 Sodium 134 Potassium 3.0 L Chloride 104 Carbon Dioxide 21 Anion Gap 12 BUN 22 H Creatinine 1.4 Est GFR ( Amer) > 60 Est GFR (Non-Af Amer) 50 POC Glucose (mg/dL) 191 H Random Glucose 205 H Calcium 7.3 L Total Bilirubin 1.2 AST 31 ALT 30 Alkaline Phosphatase 90 Total Protein 4.2 L Albumin 1.9 L Globulin 2.3 Albumin/Globulin Ratio 0.8 L Assessment/Plan - Assessment and Plan (Free Text) Plan: Patient seen and examined on rounds with resident, agree with note with following additions/exceptions: Patient is 67yo male with PMHx HTN, paroxysmal A-fib (on Eliquis), cardiomyopathy (s/p AICD), recent lower extremity cellulitis growing MRSA and pseudomonas, and ETOH abuse being admitted to the ICU s/p cardiac arrest s/p ROSC s/p hypothermic protocol. Currently intubated, off sedation, with persistent seizures, despite aggressive AED therapy. Neurology following. Patient sustained extensive anoxic brain injury. Currently on vasopressor support. Cardiology following. Patient on Valproate, Keppra, Versed, Ativan, and now on phenobarb IV. Patient not stable for transfer given vaspressor requirements. Pt is DNR. Afib Cardiomyopathy s/p AICD s/p Cardiac Arrest s/p ROSC Status Epilpeticus Anoxic brain injury PNA Pulm edema Recommend: - cont with vent support, low tidal vol ventilation, daily CPAP trials as tolerated - Abx as per ID, follow up cultures, procal - Vasopressor support - follow up cardiology - goal MAP 65, add dobutamine - monitor HH - FS control, maintain euthermia - AEDs as per neurology - EEG follow up - palliative care follow up - monitor LFTs - GI ppx - DVT ppx, HSQ - Monitor in MICU Overall prognosis extremely poor DNR Critical care time 35 minutes
--- NOTE | 2018-02-11 10:58 | CP.PCM.PN ---
Subjective - Date & Time of Evaluation Date of Evaluation: 02/11/18 Time of Evaluation: 10:00 - Subjective Subjective: No acute overnights. Intubated, occasional twitching lower extremities . Objective - Vital Signs/Intake and Output Vital Signs (last 24 hours): Temp Pulse Resp BP Pulse Ox 99.0 F 73 18 110/68 99 02/11/18 04:50 02/11/18 06:00 02/11/18 10:33 02/11/18 04:00 02/11/18 10:33 Intake and Output: 02/11/18 02/11/18 06:59 18:59 Intake Total 4400 250 Output Total 1200 Balance 3200 250 - Medications Medications: Current Medications Artificial Tears (Artificial Tears Opht Oint) 0 gm OU Q6 KELLY Last Admin: 02/11/18 05:32 Dose: 2 applic Heparin Sodium (Porcine) (Heparin) 5,000 units SC Q12 KELLY PRN Reason: Protocol Last Admin: 02/11/18 09:17 Dose: 5,000 units Propofol (Diprivan) 1,000 mg in 100 mls @ 3 mls/hr IV .Q24H PRN; Protocol; 5 MCG/KG/MIN PRN Reason: TITRATE PER MD ORDER Last Admin: 02/11/18 02:38 Dose: 5 mcg/kg/min, 3 mls/hr NOREPINEPHRINE BIT/0.9 % NACL (Levophed 4 Mg/ 250 Ml Ns Premixed) 4 mg in 250 mls @ 15 mls/hr IV .[id number] PRN; Protocol; 4 MCG/MIN PRN Reason: TITRATE PER MD ORDER Last Admin: 02/11/18 09:28 Dose: 20 mcg/min, 75 mls/hr Fentanyl Citrate (Fentanyl Citrate/Sodium Chloride 1 Mg/100 Ml) 1,000 mcg in 100 mls @ 2 mls/hr IV .Q24H PRN; Protocol; 20 MCG/HR PRN Reason: TITRATE PER MD ORDER Last Titration: 02/09/18 19:00 Dose: Infused Vasopressin 20 units/ Sodium (Chloride) 101 mls @ 9.09 mls/hr IV .Q11H7M KELLY; 0.03 U/MIN PRN Reason: Protocol Last Admin: 02/10/18 19:53 Dose: 9.09 mls/hr Linezolid (Zyvox 600mg/300ml D5w) 600 mg in 300 mls @ 200 mls/hr IVPB Q12 KELLY PRN Reason: Protocol Stop: 02/18/18 10:01 Last Admin: 02/11/18 09:27 Dose: 200 mls/hr Midazolam 100 mg/100ml in NS (Midazolam 100 Mg/100ml In Ns) 100 mg in 100 mls @ 1 mls/hr IV .Q24H PRN; Protocol; 1 MG/HR PRN Reason: Agitation Last Admin: 02/10/18 15:44 Dose: 3 mg/hr, 3 mls/hr Valproate Sodium 1,000 mg/ (Sodium Chloride) 110 mls @ 100 mls/hr IVPB Q12 KELLY Last Admin: 02/11/18 09:16 Dose: 100 mls/hr Levetiracetam 1,500 mg/ Sodium (Chloride) 115 mls @ 460 mls/hr IV Q12H KELLY Last Admin: 02/11/18 05:13 Dose: 460 mls/hr Aztreonam (Azactam 1 Gm) 100 mls @ 100 mls/hr IVPB Q8 KELLY PRN Reason: Protocol Stop: 02/17/18 11:31 Last Admin: 02/11/18 05:20 Dose: 100 mls/hr Doxycycline Hyclate 100 mg/ (Sodium Chloride) 100 mls @ 100 mls/hr IVPB Q12 KELLY PRN Reason: Protocol Last Admin: 02/11/18 09:17 Dose: 100 mls/hr Dextrose/Sodium Chloride (Dextrose 5%/0.9% Ns 1000 Ml) 1,000 mls @ 50 mls/hr IV .Q20H [facility] Phenobarbital (Phenobarbital Inj) 50 mg IV Q6 [facility] Last Admin: 02/11/18 05:51 Dose: 50 mg - Labs Labs: 02/10/18 06:00 02/10/18 06:00 PT 22.8 SECONDS (9.4-12.5) H 02/08/18 23:55 INR 1.97 (0.93-1.08) H 02/08/18 23:55 APTT 42.5 Seconds (25.1-36.5) H 02/08/18 23:55 - Constitutional Appears: Chronically Ill - ENT Exam ENT Exam: Mucous Membranes Moist - Respiratory Exam Respiratory Exam: Decreased Breath Sounds, Rhonchi - Cardiovascular Exam Cardiovascular Exam: REGULAR RHYTHM - GI/Abdominal Exam GI & Abdominal Exam: Soft, Normal Bowel Sounds - Exam Exam: Scrotal Swelling - Extremities Exam Additional comments: all extremities edematous,lower extremities cellulitis>oozing serous fluid - Neurological Exam Additional comments: twitching of lower extremities - Skin Skin Exam: Dry, Pallor Assessment and Plan - Assessment and Plan (Free Text) Assessment: 67 year old male with history of cardiomyopathy, CHF, A Fib, HTN, AICD, daily alcohol use who is s/p cardiopulmonary arrest admitted with respiratory failure anoxic brain injury, hypotension,seizures, sepsis, YE. emotionally distressed, has conflicting feelings about resuscitation status. Lengthy conversation this morning between her and myself regarding goals of care. Explained medical situation, reiterated that underlying comorbidities combined with current situation indicate poor prognosis. will keep patient DNR/DNI. Encouraged to consider future goals of care. Explained that if patent survives he will not return to baseline functional status. Psychosocial support provided. Time spent with family in goals of care discussion, 30 minutes Plan: Goals of care Neuro: Continue Keppra, Phenobarbital, Valproate. Repeat EEG. Follow Neuro recommendations Pulmonary: Vent support, monitor ABG's, repeat chest x ray Cardiology:Continue vasopressor. Maintain MAP> 65. IVF's Sepsis: Continue antibiotics. Azactam Doxycycline, Linezolid.
[2018-02-11 11:30] LABS: EOS % 0.2 % (1.5-5.0); GRAN # 12.97 (1.4-6.5); GRAN % 91.7 % (50.0-68.0); HEMOGLOBIN 11.1 g/dL (14.0-18.0); LYMPH # 0.6 (1.2-3.4); LYMPH % 4.2 % (22.0-35.0); MEAN CELL VOLUME 89.3 fl (80.0-105.0); MEAN CORPUSCULAR HEMOGLOBIN 30.5 pg (25.0-35.0); MEAN CORPUSCULAR HGB CONC 34.2 g/dl (31.0-37.0); MEAN PLATELET VOLUME 9.9 fl (7.0-11.0); MONO # 0.6 (0.1-0.6); MONO % 3.9 % (1.0-6.0); PLATELET COUNT 156 10^3/uL (120.0-450.0); RBC 3.64 10^6/uL (3.5-6.1); RED CELL DISTRIBUTION WIDTH 18.6 % (11.5-14.5); WHITE BLOOD COUNT 14.1 10^3/ul (4.5-11.0)
[2018-02-11 11:40] LABS: ALB/GLOB RATIO 0.8 (1.1-1.8); ALBUMIN 1.9 g/dL (3.0-4.8); ALT/SGPT 30 U/L (7-56); AST/SGOT 31 U/L (17-59); BLOOD UREA NITROGEN 22 mg/dL (7-21); CALCIUM 7.3 mg/dL (8.4-10.5); GFR AFRICAN-AMERICAN > 60; GFR NON-AFRICAN AMERICAN 50
[2018-02-11 12:17] LABS: BAND 1 % (0-2); LYMPHOCYTE 3 % (22.0-35.0); MONOCYTE 1 % (1.0-6.0); NEUTROPHIL 95 % (50.0-70.0); PLATELET ESTIMATE NORMAL (NORMAL)
--- NOTE | 2018-02-11 12:31 | CP.PCM.PN ---
Subjective - Date & Time of Evaluation Date of Evaluation: 02/11/18 Time of Evaluation: 10:20 - Subjective Subjective: Patient is still on the ventilator, but has been afebrile since yesterday. Objective - Vital Signs/Intake and Output Vital Signs (last 24 hours): Temp Pulse Resp BP Pulse Ox 99.0 F 70 20 110/68 100 02/11/18 04:50 02/11/18 04:50 02/10/18 08:23 02/11/18 04:00 02/11/18 04:50 Intake and Output: 02/10/18 02/11/18 18:59 06:59 Intake Total 6302 1100 Output Total 950 Balance 5352 1100 - Medications Medications: Current Medications Artificial Tears (Artificial Tears Opht Oint) 0 gm OU Q6 KELLY Last Admin: 02/11/18 05:32 Dose: 2 applic Heparin Sodium (Porcine) (Heparin) 5,000 units SC Q12 KELLY PRN Reason: Protocol Last Admin: 02/10/18 23:40 Dose: 5,000 units Propofol (Diprivan) 1,000 mg in 100 mls @ 3 mls/hr IV .Q24H PRN; Protocol; 5 MCG/KG/MIN PRN Reason: TITRATE PER MD ORDER Last Admin: 02/11/18 02:38 Dose: 5 mcg/kg/min, 3 mls/hr NOREPINEPHRINE BIT/0.9 % NACL (Levophed 4 Mg/ 250 Ml Ns Premixed) 4 mg in 250 mls @ 15 mls/hr IV .[id number] PRN; Protocol; 4 MCG/MIN PRN Reason: TITRATE PER MD ORDER Last Admin: 02/11/18 05:33 Dose: 20 mcg/min, 75 mls/hr Fentanyl Citrate (Fentanyl Citrate/Sodium Chloride 1 Mg/100 Ml) 1,000 mcg in 100 mls @ 2 mls/hr IV .Q24H PRN; Protocol; 20 MCG/HR PRN Reason: TITRATE PER MD ORDER Last Titration: 02/09/18 19:00 Dose: Infused Vasopressin 20 units/ Sodium (Chloride) 101 mls @ 9.09 mls/hr IV .Q11H7M KELLY; 0.03 U/MIN PRN Reason: Protocol Last Admin: 02/10/18 19:53 Dose: 9.09 mls/hr Linezolid (Zyvox 600mg/300ml D5w) 600 mg in 300 mls @ 200 mls/hr IVPB Q12 KELLY PRN Reason: Protocol Stop: 02/18/18 10:01 Last Admin: 02/10/18 23:25 Dose: 200 mls/hr Midazolam 100 mg/100ml in NS (Midazolam 100 Mg/100ml In Ns) 100 mg in 100 mls @ 1 mls/hr IV .Q24H PRN; Protocol; 1 MG/HR PRN Reason: Agitation Last Admin: 02/10/18 15:44 Dose: 3 mg/hr, 3 mls/hr Dextrose/Sodium Chloride (Dextrose 5%/0.9% Ns 1000 Ml) 1,000 mls @ 140 mls/hr IV .Q7H9M [facility] Last Admin: 02/10/18 20:00 Dose: 140 mls/hr Valproate Sodium 1,000 mg/ (Sodium Chloride) 110 mls @ 100 mls/hr IVPB Q12 KELLY Last Admin: 02/10/18 22:04 Dose: 100 mls/hr Levetiracetam 1,500 mg/ Sodium (Chloride) 115 mls @ 460 mls/hr IV Q12H [facility] Last Admin: 02/11/18 05:13 Dose: 460 mls/hr Aztreonam (Azactam 1 Gm) 100 mls @ 100 mls/hr IVPB Q8 KELLY PRN Reason: Protocol Stop: 02/17/18 11:31 Last Admin: 02/11/18 05:20 Dose: 100 mls/hr Doxycycline Hyclate 100 mg/ (Sodium Chloride) 100 mls @ 100 mls/hr IVPB Q12 KELLY PRN Reason: Protocol Last Admin: 02/10/18 22:09 Dose: 100 mls/hr Phenobarbital (Phenobarbital Inj) 50 mg IV Q6 [facility] Last Admin: 02/11/18 05:51 Dose: 50 mg - Labs Labs: 02/10/18 06:00 02/10/18 06:00 PT 22.8 SECONDS (9.4-12.5) H 02/08/18 23:55 INR 1.97 (0.93-1.08) H 02/08/18 23:55 APTT 42.5 Seconds (25.1-36.5) H 02/08/18 23:55 - Constitutional Appears: Other (intubated, sedated and on vasopressor support) - Head Exam Head Exam: NORMAL INSPECTION - ENT Exam Additional comments: ET tube in place - Neck Exam Additional comments: right IJ TLC in place - Respiratory Exam Respiratory Exam: Decreased Breath Sounds - Cardiovascular Exam Cardiovascular Exam: +S1, +S2 - GI/Abdominal Exam GI & Abdominal Exam: Soft. absent: Tenderness Assessment and Plan - Assessment and Plan (Free Text) Plan: Assessment Systemic Inflammatory response syndrome with hypotension after cardiac arrest, with ventilator-dependent respiratory failure and status epilepticus, consider severe sepsis / septic on top of caridogenic shock from right sided HCAP / aspiration pneumonia on top of acute on chronic CHF history left leg skin and skin structure infection, growing Roultella and MSSA, clinically improving history of right leg skin and skin structure infection with Pseudomonas and MRSA HTN COPD S/P pacemaker placement chronic atrial fibrillation on anticoagulation S/P right knee replacement chronic CHF with dilated cardiomyopathy Plan on Zyvox day 4 and Azactam day [address] Arias since patient is continually seizing - will also continue Doxycycline day 2 and will follow up final culture results (so far negative) discussed with family that overall prognosis is poor and they understand - patient is currently in a medically-induced coma because of seizures will continue to follow clinically
[2018-02-11] MEDS: Dextrose 5%/0.9% NS 1,000 ML IV SCH (13:16)
--- NOTE | 2018-02-11 14:19 | PN ---
DATE: 02/11/2018 SUBJECTIVE: The patient is 67 years old, seen and examined, remains intubated, unresponsive. He has swelling of both upper and lower extremities. Seizures have subsided since he is on phenobarbital. PHYSICAL EXAMINATION: VITAL SIGNS: He is afebrile, pulse 73, respirations 18, blood pressure is 110/68. LUNGS: Bilateral soft crackle, probably transmitted sound that he has mucus. He remains intubated. HEART: S1 and S2 audible. ABDOMEN: Soft, obese, nontender. No rebound. No guarding. NEUROLOGICAL: He is unresponsive. EXTREMITIES: His right knee abrasion. Bilateral leg, +2 edema. LABORATORY EXAM: WBC is 14, hemoglobin 11, hematocrit 32, platelet Of 156. Chemistry: Sodium 134, potassium 3, chloride 104, CO2 of 21, BUN 22, creatinine 1.4, blood sugar of 191. ASSESSMENT: 1. Status post cardiac arrest. 2. Anoxic encephalopathy. 3. Seizure disorder. 4. Multilobar pneumonia. 5. Status post pacemaker placement. 6. Status post automatic implantable cardioverter-defibrillator that was interrogated and is functioning well. PLAN: Family made him DNR. He was evaluated by [facility], but declined because of history of CA prostate. So plan is currently the patient is on Azactam. He is on IV fluids. To continue on doxycycline. Continue him on Keppra 500 every 12. He is on pressors. We will monitor his electrolytes in the a.m. Clif Lala MD
[2018-02-11 22:42] LABS: EOS % 0.2 % (1.5-5.0); GRAN # 10.61 (1.4-6.5); GRAN % 93.3 % (50.0-68.0); HEMOGLOBIN 10.8 g/dL (14.0-18.0); LYMPH # 0.4 (1.2-3.4); LYMPH % 3.3 % (22.0-35.0); MEAN CELL VOLUME 90.5 fl (80.0-105.0); MEAN CORPUSCULAR HEMOGLOBIN 30.3 pg (25.0-35.0); MEAN CORPUSCULAR HGB CONC 33.4 g/dl (31.0-37.0); MEAN PLATELET VOLUME 9.6 fl (7.0-11.0); MONO # 0.4 (0.1-0.6); MONO % 3.2 % (1.0-6.0); RBC 3.57 10^6/uL (3.5-6.1); RED CELL DISTRIBUTION WIDTH 18.6 % (11.5-14.5); WHITE BLOOD COUNT 11.4 10^3/ul (4.5-11.0)
[2018-02-12] MEDS: PHENobarbital 130 mg/ml Inj Syringe IV SCH ×4 (00:32→18:23)
[2018-02-12] MEDS: Mineral Oil/Petrolatum Opht Oint(3.5 gm) OU SCH ×4 (00:40→18:16)
[2018-02-12] MEDS: NOREPINEPHRINE BIT/0.9 % NACL 4 MG/250 ML BAG IV PRN ×4 (02:50→22:56)
[2018-02-12 05:24] LABS: EOS % 0.1 % (1.5-5.0); GRAN # 10.61 (1.4-6.5); GRAN % 93.6 % (50.0-68.0); HEMOGLOBIN 11.1 g/dL (14.0-18.0); LYMPH # 0.4 (1.2-3.4); LYMPH % 3.6 % (22.0-35.0); MEAN CELL VOLUME 90.3 fl (80.0-105.0); MEAN CORPUSCULAR HEMOGLOBIN 30.7 pg (25.0-35.0); MEAN PLATELET VOLUME 10.4 fl (7.0-11.0); MONO # 0.3 (0.1-0.6); MONO % 2.7 % (1.0-6.0); RBC 3.61 10^6/uL (3.5-6.1); RED CELL DISTRIBUTION WIDTH 18.7 % (11.5-14.5); WHITE BLOOD COUNT 11.3 10^3/ul (4.5-11.0)
[2018-02-12 05:24] LABS: ARTERIAL BLOOD GAS HCO3 18.6 mmol/L (21-28); ARTERIAL BLOOD GAS HEMOGLOBIN 9.8 g/dL (11.7-17.4); ARTERIAL BLOOD GAS O2 CAPACITY 13.8 mL/dl (16-24); ARTERIAL BLOOD GAS O2 CONTENT 13.7 ML/dl (15-23); ARTERIAL BLOOD GAS O2 SAT 99.4 % (95-98); ARTERIAL BLOOD GAS PCO2 25 mm/Hg (35-45); ARTERIAL BLOOD GAS PH 7.48 (7.35-7.45); ARTERIAL BLOOD GAS TCO2 19.4 mmol.L (22-28)
[2018-02-12 05:37] LABS: ALB/GLOB RATIO 0.9 (1.1-1.8); ALT/SGPT 31 U/L (7-56); AST/SGOT 28 U/L (17-59); BLOOD UREA NITROGEN 19 mg/dL (7-21); CALCIUM 7.3 mg/dL (8.4-10.5); GFR AFRICAN-AMERICAN > 60; GFR NON-AFRICAN AMERICAN > 60
[2018-02-12] MEDS: Aztreonam 1 Gm in NS 100mL 100 ML IVPB SCH ×3 (06:00→21:57)
--- NOTE | 2018-02-12 06:31 | CP.CCUPN ---
<Mary Cervantes - Last Filed: 02/12/18 12:35> CCU Subjective - Physician Review Subjective (Free Text): 02/10/18 11:49 PGY-[address] Hill EEG done today, showed seizure. Family meeting with Dr. Hill and Dr Arias. Family agrees to DNR.DNI Started pheobarb 02/11/18 10:25 No shaking observe. No acute event overnight 02/12/18 12:35 3 large dark BM. (+) heme occult. H/H stable On phenobarb induced coma, wean off propofol and midazolam. saw seizure. will do stat eeg CCU Objective - Vital Signs / Intake & Output Vital Signs (Last 4 hours): Vital Signs Temp Pulse 02/12/18 04:00 97.2 F L 73 Intake and Output (Last 8hrs): Intake & Output 02/11/18 02/11/18 02/12/18 14:59 22:59 06:59 Intake Total 500 2088 1627 Output Total 1000 475 Balance 500 1088 1152 Intake: IV 500 1788 1627 Right Antecubital 900 Right Internal Jugular 78 Right Wrist 948 24 levophed 240 375 Tube Feeding 300 Output: Urine 1000 475 Urethral (Renteria) 1000 475 Other: # Bowel Movements 1 - Physical Exam Head: Positive for: Atraumatic, Normocephalic Pupils: Positive for: Other (fixed and dilated) Extroacular Muscles: Positive for: EOMI Conjunctiva: Positive for: Normal Mouth: Positive for: Moist Mucous Membranes Neck: Negative for: JVD Respiratory/Chest: Positive for: Good Air Exchange, Rhonchi (right base). Negative for: Respiratory Distress, Accessory Muscle Use Cardiovascular: Positive for: Regular Rate and Rhythm, Normal S1, S2. Negative for: Murmurs Abdomen: Negative for: Tenderness, Distention, Normal Bowel Sounds (hypoactive) , Peritoneal Signs, Rebound, Guarding Back: Positive for: Normal Inspection Upper Extremity: Positive for: Normal Inspection. Negative for: Cyanosis, Edema Lower Extremity: Positive for: Normal Inspection, Swelling. Negative for: Edema Neurological: Positive for: CN II-XII Intact, Other (intubated, no w/d to pain , no gag reflex) Skin: Positive for: Warm, Dry, Normal Color. Negative for: Rashes Psychiatric: Positive for: Other (sedated) - Medications Active Medications: Active Medications Generic Name Dose Route Start Last Admin Trade Name Freq PRN Reason Stop Dose Admin Artificial Tears 0 gm 02/08/18 18:30 02/12/18 00:40 Artificial Tears Opht Oint OU Not Given Q6 KELLY Heparin Sodium (Porcine) 5,000 units 02/08/18 22:00 02/11/18 21:45 Heparin SC Not Given Q12 KELLY Protocol Hydrocortisone Sodium Succinate 50 mg 02/11/18 14:00 02/12/18 06:01 Solu-Cortef IVP 50 mg Q8 KELLY Administration Propofol 1,000 mg in 100 mls @ 3 mls/hr 02/07/18 21:17 02/11/18 21:31 Diprivan IV 5 mcg/kg/min .Q24H PRN 3 mls/hr TITRATE PER MD ORDER Administration Protocol 5 MCG/KG/MIN NOREPINEPHRINE BIT/0.9 % NACL 4 mg in 250 mls @ 15 mls/hr 02/07/18 21:21 02/24 02:50 Levophed 4 Mg/ 250 Ml Ns Premixed IV 20 mcg/min .[id number] PRN 75 mls/hr TITRATE PER MD ORDER Administration Protocol 4 MCG/MIN Fentanyl Citrate 1,000 mcg in 100 mls @ 2 mls/hr 02/08/18 12:01 02/09/18 19: 00 Fentanyl Citrate/Sodium Chloride 1 Mg/100 Ml IV Infused .Q24H PRN Titration TITRATE PER MD ORDER Protocol 20 MCG/HR Vasopressin 20 units/ Sodium 101 mls @ 9.09 mls/hr 02/09/18 00:00 02/11/18 17 :47 Chloride IV 9.09 mls/hr .[id number] KELLY Administration Protocol 0.03 U/MIN Linezolid 600 mg in 300 mls @ 200 mls/hr 02/09/18 10:00 02/11/18 21:31 Zyvox 600mg/300ml D5w IVPB 02/18/18 10:01 200 mls/hr Q12 KELLY Administration Protocol Midazolam 100 mg/100ml in NS 100 mg in 100 mls @ 1 mls/hr 02/09/18 11:13 12/25 15:44 Midazolam 100 Mg/100ml In Ns IV 3 mg/hr .Q24H PRN 3 mls/hr Agitation Administration Protocol 1 MG/HR Valproate Sodium 1,000 mg/ 110 mls @ 100 mls/hr 02/09/18 22:00 02/11/18 21:30 Sodium Chloride IVPB 100 mls/hr Q12 KELLY Administration Levetiracetam 1,500 mg/ Sodium 115 mls @ 460 mls/hr 02/10/18 18:00 02/11/18 17:42 Chloride IV 460 mls/hr Q12H KELLY Administration Aztreonam 100 mls @ 100 mls/hr 02/10/18 11:30 02/12/18 06:00 Azactam 1 Gm IVPB 02/17/18 11:31 100 mls/hr Q8 KELLY Administration Protocol Doxycycline Hyclate 100 mg/ 100 mls @ 100 mls/hr 02/10/18 11:30 02/11/18 21: 29 Sodium Chloride IVPB 100 mls/hr Q12 KELLY Administration Protocol Dextrose/Sodium Chloride 1,000 mls @ 50 mls/hr 02/11/18 10:27 02/11/18 13:16 Dextrose 5%/0.9% Ns 1000 Ml IV 50 mls/hr .Q20H KELLY Administration Phenobarbital 50 mg 02/10/18 18:00 02/12/18 06:01 Phenobarbital Inj IV 50 mg Q6 KELLY Administration - Patient Studies Lab Studies: Microbiology Studies 02/10/18 15:00 Gram Stain - Final Leg - Left Wound Culture - Preliminary NO GROWTH AFTER 24 HOURS Lab Studies 02/12/18 02/12/18 02/12/18 Range/Units 06:18 05:10 04:50 WBC 11.3 H (4.5-11.0) 10^3/ul RBC 3.61 (3.5-6.1) 10^6/uL Hgb 11.1 L (14.0-18.0) g/dL Hct 32.6 L (42.0-52.0) % MCV 90.3 (80.0-105.0) fl MCH 30.7 (25.0-35.0) pg MCHC 34.0 (31.0-37.0) g/dl RDW 18.7 H (11.5-14.5) % Plt Count 162 (120.0-450.0) 10^3/uL MPV 10.4 (7.0-11.0) fl Gran % 93.6 H (50.0-68.0) % Lymph % (Auto) 3.6 L (22.0-35.0) % [place] % (Auto) 2.7 (1.0-6.0) % Eos % (Auto) 0.1 L (1.5-5.0) % Baso % (Auto) 0.0 (0.0-3.0) % Gran # 10.61 H (1.4-6.5) Lymph # (Auto) 0.4 L (1.2-3.4) [place] # (Auto) 0.3 (0.1-0.6) Eos # (Auto) 0.0 (0.0-0.7) Baso # (Auto) 0.00 (0.0-2.0) K/mm3 Neutrophils % (Manual) (50.0-70.0) % Band Neutrophils % (0-2) % Lymphocytes % (Manual) (22.0-35.0) % Monocytes % (Manual) (1.0-6.0) % Platelet Evaluation (NORMAL) pCO2 25 L (35-45) mm/Hg pO2 158.0 H (80-100) mm/Hg HCO3 18.6 L (21-28) mmol/L ABG pH 7.48 H (7.35-7.45) ABG Total CO2 19.4 L (22-28) mmol.L ABG O2 Saturation 99.4 H (95-98) % ABG O2 Content 13.7 L (15-23) ML/dl ABG Base Excess -3.9 L (-2.0-3.0) mmol/L ABG Hemoglobin 9.8 L (11.7-17.4) g/dL ABG Carboxyhemoglobin 1.6 H (0.5-1.5) % POC ABG HHb (Measured) 0.6 (0-5) % ABG Methemoglobin 0.8 (0.0-3.0) % ABG O2 Capacity 13.8 L (16-24) mL/dl Hgb O2 Saturation 97.0 (95.0-98.0) % FiO2 40.0 % Sodium (132-148) mmol/L Potassium (3.6-5.0) mmol/L Chloride (98-107) mmol/L Carbon Dioxide (21-33) mmol/L Anion Gap (10-20) BUN (7-21) mg/dL Creatinine (0.8-1.5) mg/dl Est GFR ( Amer) Est GFR (Non-Af Amer) POC Glucose (mg/dL) 119 H (65-110) mg/dL Random Glucose (70-110) mg/dL Calcium (8.4-10.5) mg/dL Total Bilirubin (0.2-1.3) mg/dL AST (17-59) U/L ALT (7-56) U/L Alkaline Phosphatase (38-126) U/L Total Protein (5.8-8.3) g/dL Albumin (3.0-4.8) g/dL Globulin gm/dL Albumin/Globulin Ratio (1.1-1.8) 02/12/18 02/12/18 02/11/18 Range/Units 04:50 00:00 22:29 WBC 11.4 H (4.5-11.0) 10^3/ul RBC 3.57 (3.5-6.1) 10^6/uL Hgb 10.8 L (14.0-18.0) g/dL Hct 32.3 L (42.0-52.0) % MCV 90.5 (80.0-105.0) fl MCH 30.3 (25.0-35.0) pg MCHC 33.4 (31.0-37.0) g/dl RDW 18.6 H (11.5-14.5) % Plt Count 146 (120.0-450.0) 10^3/uL MPV 9.6 (7.0-11.0) fl Gran % 93.3 H (50.0-68.0) % Lymph % (Auto) 3.3 L (22.0-35.0) % [place] % (Auto) 3.2 (1.0-6.0) % Eos % (Auto) 0.2 L (1.5-5.0) % Baso % (Auto) 0.0 (0.0-3.0) % Gran # 10.61 H (1.4-6.5) Lymph # (Auto) 0.4 L (1.2-3.4) [place] # (Auto) 0.4 (0.1-0.6) Eos # (Auto) 0.0 (0.0-0.7) Baso # (Auto) 0.00 (0.0-2.0) K/mm3 Neutrophils % (Manual) (50.0-70.0) % Band Neutrophils % (0-2) % Lymphocytes % (Manual) (22.0-35.0) % Monocytes % (Manual) (1.0-6.0) % Platelet Evaluation (NORMAL) pCO2 (35-45) mm/Hg pO2 (80-100) mm/Hg HCO3 (21-28) mmol/L ABG pH (7.35-7.45) ABG Total CO2 (22-28) mmol.L ABG O2 Saturation (95-98) % ABG O2 Content (15-23) ML/dl ABG Base Excess (-2.0-3.0) mmol/L ABG Hemoglobin (11.7-17.4) g/dL ABG Carboxyhemoglobin (0.5-1.5) % POC ABG HHb (Measured) (0-5) % ABG Methemoglobin (0.0-3.0) % ABG O2 Capacity (16-24) mL/dl Hgb O2 Saturation (95.0-98.0) % FiO2 % Sodium 135 (132-148) mmol/L Potassium 3.0 L (3.6-5.0) mmol/L Chloride 105 (98-107) mmol/L Carbon Dioxide 22 (21-33) mmol/L Anion Gap 10 (10-20) BUN 19 (7-21) mg/dL Creatinine 1.1 (0.8-1.5) mg/dl Est GFR ( Amer) > 60 Est GFR (Non-Af Amer) > 60 POC Glucose (mg/dL) 182 H (65-110) mg/dL Random Glucose 156 H (70-110) mg/dL Calcium 7.3 L (8.4-10.5) mg/dL Total Bilirubin 1.2 (0.2-1.3) mg/dL AST 28 (17-59) U/L ALT 31 (7-56) U/L Alkaline Phosphatase 97 (38-126) U/L Total Protein 4.3 L (5.8-8.3) g/dL Albumin 2.0 L (3.0-4.8) g/dL Globulin 2.3 gm/dL Albumin/Globulin Ratio 0.9 L (1.1-1.8) 02/11/18 02/11/18 02/11/18 Range/Units 17:45 11:15 11:00 WBC (4.5-11.0) 10^3/ul RBC (3.5-6.1) 10^6/uL Hgb (14.0-18.0) g/dL Hct (42.0-52.0) % MCV (80.0-105.0) fl MCH (25.0-35.0) pg MCHC (31.0-37.0) g/dl RDW (11.5-14.5) % Plt Count (120.0-450.0) 10^3/uL MPV (7.0-11.0) fl Gran % (50.0-68.0) % Lymph % (Auto) (22.0-35.0) % [place] % (Auto) (1.0-6.0) % Eos % (Auto) (1.5-5.0) % Baso % (Auto) (0.0-3.0) % Gran # (1.4-6.5) Lymph # (Auto) (1.2-3.4) [place] # (Auto) (0.1-0.6) Eos # (Auto) (0.0-0.7) Baso # (Auto) (0.0-2.0) K/mm3 Neutrophils % (Manual) (50.0-70.0) % Band Neutrophils % (0-2) % Lymphocytes % (Manual) (22.0-35.0) % Monocytes % (Manual) (1.0-6.0) % Platelet Evaluation (NORMAL) pCO2 (35-45) mm/Hg pO2 (80-100) mm/Hg HCO3 (21-28) mmol/L ABG pH (7.35-7.45) ABG Total CO2 (22-28) mmol.L ABG O2 Saturation (95-98) % ABG O2 Content (15-23) ML/dl ABG Base Excess (-2.0-3.0) mmol/L ABG Hemoglobin (11.7-17.4) g/dL ABG Carboxyhemoglobin (0.5-1.5) % POC ABG HHb (Measured) (0-5) % ABG Methemoglobin (0.0-3.0) % ABG O2 Capacity (16-24) mL/dl Hgb O2 Saturation (95.0-98.0) % FiO2 % Sodium 134 (132-148) mmol/L Potassium 3.0 L (3.6-5.0) mmol/L Chloride 104 (98-107) mmol/L Carbon Dioxide 21 (21-33) mmol/L Anion Gap 12 (10-20) BUN 22 H (7-21) mg/dL Creatinine 1.4 (0.8-1.5) mg/dl Est GFR ( Amer) > 60 Est GFR (Non-Af Amer) 50 POC Glucose (mg/dL) 131 H 191 H (65-110) mg/dL Random Glucose 205 H (70-110) mg/dL Calcium 7.3 L (8.4-10.5) mg/dL Total Bilirubin 1.2 (0.2-1.3) mg/dL AST 31 (17-59) U/L ALT 30 (7-56) U/L Alkaline Phosphatase 90 (38-126) U/L Total Protein 4.2 L (5.8-8.3) g/dL Albumin 1.9 L (3.0-4.8) g/dL Globulin 2.3 gm/dL Albumin/Globulin Ratio 0.8 L (1.1-1.8) 02/11/18 Range/Units 11:00 WBC 14.1 H (4.5-11.0) 10^3/ul RBC 3.64 (3.5-6.1) 10^6/uL Hgb 11.1 L (14.0-18.0) g/dL Hct 32.5 L (42.0-52.0) % MCV 89.3 (80.0-105.0) fl MCH 30.5 (25.0-35.0) pg MCHC 34.2 (31.0-37.0) g/dl RDW 18.6 H (11.5-14.5) % Plt Count 156 (120.0-450.0) 10^3/uL MPV 9.9 (7.0-11.0) fl Gran % 91.7 H (50.0-68.0) % Lymph % (Auto) 4.2 L (22.0-35.0) % [place] % (Auto) 3.9 (1.0-6.0) % Eos % (Auto) 0.2 L (1.5-5.0) % Baso % (Auto) 0.0 (0.0-3.0) % Gran # 12.97 H (1.4-6.5) Lymph # (Auto) 0.6 L (1.2-3.4) [place] # (Auto) 0.6 (0.1-0.6) Eos # (Auto) 0.0 (0.0-0.7) Baso # (Auto) 0.00 (0.0-2.0) K/mm3 Neutrophils % (Manual) 95 H (50.0-70.0) % Band Neutrophils % 1 (0-2) % Lymphocytes % (Manual) 3 L (22.0-35.0) % Monocytes % (Manual) 1 (1.0-6.0) % Platelet Evaluation Normal (NORMAL) pCO2 (35-45) mm/Hg pO2 (80-100) mm/Hg HCO3 (21-28) mmol/L ABG pH (7.35-7.45) ABG Total CO2 (22-28) mmol.L ABG O2 Saturation (95-98) % ABG O2 Content (15-23) ML/dl ABG Base Excess (-2.0-3.0) mmol/L ABG Hemoglobin (11.7-17.4) g/dL ABG Carboxyhemoglobin (0.5-1.5) % POC ABG HHb (Measured) (0-5) % ABG Methemoglobin (0.0-3.0) % ABG O2 Capacity (16-24) mL/dl Hgb O2 Saturation (95.0-98.0) % FiO2 % Sodium (132-148) mmol/L Potassium (3.6-5.0) mmol/L Chloride (98-107) mmol/L Carbon Dioxide (21-33) mmol/L Anion Gap (10-20) BUN (7-21) mg/dL Creatinine (0.8-1.5) mg/dl Est GFR ( Amer) Est GFR (Non-Af Amer) POC Glucose (mg/dL) (65-110) mg/dL Random Glucose (70-110) mg/dL Calcium (8.4-10.5) mg/dL Total Bilirubin (0.2-1.3) mg/dL AST (17-59) U/L ALT (7-56) U/L Alkaline Phosphatase (38-126) U/L Total Protein (5.8-8.3) g/dL Albumin (3.0-4.8) g/dL Globulin gm/dL Albumin/Globulin Ratio (1.1-1.8) Laboratory Results - last 24 hr 02/11/18 02/11/18 02/11/18 11:00 11:00 11:15 WBC 14.1 H RBC 3.64 Hgb 11.1 L Hct 32.5 L MCV 89.3 MCH 30.5 MCHC 34.2 RDW 18.6 H Plt Count 156 MPV 9.9 Gran % 91.7 H Lymph % (Auto) 4.2 L [place] % (Auto) 3.9 Eos % (Auto) 0.2 L Baso % (Auto) 0.0 Gran # 12.97 H Lymph # (Auto) 0.6 L [place] # (Auto) 0.6 Eos # (Auto) 0.0 Baso # (Auto) 0.00 Neutrophils % (Manual) 95 H Band Neutrophils % 1 Lymphocytes % (Manual) 3 L Monocytes % (Manual) 1 Platelet Evaluation Normal pCO2 pO2 HCO3 ABG pH ABG Total CO2 ABG O2 Saturation ABG O2 Content ABG Base Excess ABG Hemoglobin ABG Carboxyhemoglobin POC ABG HHb (Measured) ABG Methemoglobin ABG O2 Capacity Hgb O2 Saturation FiO2 Sodium 134 Potassium 3.0 L Chloride 104 Carbon Dioxide 21 Anion Gap 12 BUN 22 H Creatinine 1.4 Est GFR ( Amer) > 60 Est GFR (Non-Af Amer) 50 POC Glucose (mg/dL) 191 H Random Glucose 205 H Calcium 7.3 L Total Bilirubin 1.2 AST 31 ALT 30 Alkaline Phosphatase 90 Total Protein 4.2 L Albumin 1.9 L Globulin 2.3 Albumin/Globulin Ratio 0.8 L 02/11/18 02/11/18 02/12/18 17:45 22:29 00:00 WBC 11.4 H RBC 3.57 Hgb 10.8 L Hct 32.3 L MCV 90.5 MCH 30.3 MCHC 33.4 RDW 18.6 H Plt Count 146 MPV 9.6 Gran % 93.3 H Lymph % (Auto) 3.3 L [place] % (Auto) 3.2 Eos % (Auto) 0.2 L Baso % (Auto) 0.0 Gran # 10.61 H Lymph # (Auto) 0.4 L [place] # (Auto) 0.4 Eos # (Auto) 0.0 Baso # (Auto) 0.00 Neutrophils % (Manual) Band Neutrophils % Lymphocytes % (Manual) Monocytes % (Manual) Platelet Evaluation pCO2 pO2 HCO3 ABG pH ABG Total CO2 ABG O2 Saturation ABG O2 Content ABG Base Excess ABG Hemoglobin ABG Carboxyhemoglobin POC ABG HHb (Measured) ABG Methemoglobin ABG O2 Capacity Hgb O2 Saturation FiO2 Sodium Potassium Chloride Carbon Dioxide Anion Gap BUN Creatinine Est GFR ( Amer) Est GFR (Non-Af Amer) POC Glucose (mg/dL) 131 H 182 H Random Glucose Calcium Total Bilirubin AST ALT Alkaline Phosphatase Total Protein Albumin Globulin Albumin/Globulin Ratio 02/12/18 02/12/18 02/12/18 04:50 04:50 05:10 WBC 11.3 H RBC 3.61 Hgb 11.1 L Hct 32.6 L MCV 90.3 MCH 30.7 MCHC 34.0 RDW 18.7 H Plt Count 162 MPV 10.4 Gran % 93.6 H Lymph % (Auto) 3.6 L [place] % (Auto) 2.7 Eos % (Auto) 0.1 L Baso % (Auto) 0.0 Gran # 10.61 H Lymph # (Auto) 0.4 L [place] # (Auto) 0.3 Eos # (Auto) 0.0 Baso # (Auto) 0.00 Neutrophils % (Manual) Band Neutrophils % Lymphocytes % (Manual) Monocytes % (Manual) Platelet Evaluation pCO2 25 L pO2 158.0 H HCO3 18.6 L ABG pH 7.48 H ABG Total CO2 19.4 L ABG O2 Saturation 99.4 H ABG O2 Content 13.7 L ABG Base Excess -3.9 L ABG Hemoglobin 9.8 L ABG Carboxyhemoglobin 1.6 H POC ABG HHb (Measured) 0.6 ABG Methemoglobin 0.8 ABG O2 Capacity 13.8 L Hgb O2 Saturation 97.0 FiO2 40.0 Sodium 135 Potassium 3.0 L Chloride 105 Carbon Dioxide 22 Anion Gap 10 BUN 19 Creatinine 1.1 Est GFR ( Amer) > 60 Est GFR (Non-Af Amer) > 60 POC Glucose (mg/dL) Random Glucose 156 H Calcium 7.3 L Total Bilirubin 1.2 AST 28 ALT 31 Alkaline Phosphatase 97 Total Protein 4.3 L Albumin 2.0 L Globulin 2.3 Albumin/Globulin Ratio 0.9 L 02/12/18 06:18 WBC RBC Hgb Hct MCV MCH MCHC RDW Plt Count MPV Gran % Lymph % (Auto) [place] % (Auto) Eos % (Auto) Baso % (Auto) Gran # Lymph # (Auto) [place] # (Auto) Eos # (Auto) Baso # (Auto) Neutrophils % (Manual) Band Neutrophils % Lymphocytes % (Manual) Monocytes % (Manual) Platelet Evaluation pCO2 pO2 HCO3 ABG pH ABG Total CO2 ABG O2 Saturation ABG O2 Content ABG Base Excess ABG Hemoglobin ABG Carboxyhemoglobin POC ABG HHb (Measured) ABG Methemoglobin ABG O2 Capacity Hgb O2 Saturation FiO2 Sodium Potassium Chloride Carbon Dioxide Anion Gap BUN Creatinine Est GFR ( Amer) Est GFR (Non-Af Amer) POC Glucose (mg/dL) 119 H Random Glucose Calcium Total Bilirubin AST ALT Alkaline Phosphatase Total Protein Albumin Globulin Albumin/Globulin Ratio Fingerstick Blood Sugar Results: 182 Assessment/Plan - Assessment and Plan (Free Text) Plan: Mr Rajput, 67 M, with PMHx HTN, paroxysmal A-fib (on Eliquis), cardiomyopathy (s/p AICD), recent lower extremity cellulitis growing MRSA and pseudomonas, and ETOH abuse being admitted to the ICU s/p cardiac arrest. He had V-tach (s/p cardioversion in the field) followed by PEA arrest in the ED (s/ p treatment per ACLS protocol). Since ROSC, the patient has been unresponsive, started on hypothermia protocol, and rewarm on Saturday (02/09). He was found to have b/l pleural effusion likely pneumonia vs aspiration pneumonitis. He has cardiogenic shock vs septiv shock requiring empiric IV antibiotics and Levophed drip, on solucortef day __2_. Pt was seen having seizures vs subclinical seizures, status epilepticus, started phenobarb induced coma. Today is intubated day __6___ Anoxic brain injury status post status epilepticus cardiogenic shock vs septiv shock b/l pleural effusion likely pneumonia vs aspiration pneumonitis Neuro - EEG (02/10) showed seizure. - EEG (02/12) today - Pheobarbital 15mg/kg bolus; maintain at 2mg/kg/day - Keppra 1500mg Q12 - Valproate 1000mg Q12 - maintain euthermic. Bear hugger now for hypothermia - sedated on propofol 5 and midazolam 3 - Q1: When to wean phenobarb? Just turned off sedation, seizure observed - Q2: When neuro can prognosticate? Pulmonary - Intubated on PRVC 550/18/5/60%, protective lung ventilation - HOB >30 - CXR: R perihilar patchy density unchanged. L pleural effusion. No R pleural effusion - Maintain O2 Sat> 92% - ABG repeat AM Cardiovascular - EKG reviewed, possibility of new ischemic changes, now s/p cardiac arrest, known CHF w/ pacemaker - AICD interrogated. No preceeding events. - BP support on levophed 20, vasopressin 0.03 - Maintain MAP >65 - D5/NS @ 50 Gastrointestinal - GI bleed observe. Transfuse as PRN. H/H q4. stable now - Tube feeding Hold - ETOH Hx with cirrhosis. small volume ascites - Protonix IV gtt Renal/Electrolytes - Monitor urine output, strict IxOs - Avoid nephrotoxins - Avoid hyperchloremia Infectious disease - Known lower extremity cellulitis, recently discharged on zyvox but did not fill due to some insurance reason and instead was on bactrim - Aztreonam, Doxycyclin Q12, Linezolid 600mg Q12 - Procalcitonin 0.14 (low) Hematologic - Hold DVT prophylaxis Endocrine - Maintain euglycemia 140-180 per NICE-SUGAR trial GI/DVT ppx: protonix; SCD Dispo plan: - DNR/DNI - Palliative on board s/r/d/w Dr. Zhou <Lobo Zhou - Last Filed: 02/12/18 13:50> CCU Objective - Vital Signs / Intake & Output Vital Signs (Last 4 hours): Vital Signs Temp Pulse BP Pulse Ox 02/12/18 11:00 95.7 F L 70 128/84 100 02/12/18 10:00 95.9 F L 70 125/85 100 Intake and Output (Last 8hrs): Intake & Output 02/11/18 02/12/18 02/12/18 22:59 06:59 14:59 Intake Total 2088 2882 431.9 Output Total 1000 575 Balance 1088 2307 431.9 Weight 250 lb Intake: IV 1788 2532 431.9 Right Antecubital 1250 100 Right Internal Jugular 162 Right Wrist 948 145 levophed 240 725 Tube Feeding 300 350 Output: Urine 1000 575 Urethral (Renteria) 1000 575 Other: # Bowel Movements 1 3 - Medications Active Medications: Active Medications Generic Name Dose Route Start Last Admin Trade Name Freq PRN Reason Stop Dose Admin Artificial Tears 0 gm 02/08/18 18:30 02/12/18 06:59 Artificial Tears Opht Oint OU Not Given Q6 KELLY Hydrocortisone Sodium Succinate 50 mg 02/11/18 14:00 02/12/18 06:01 Solu-Cortef IVP 50 mg Q8 KELLY Administration Propofol 1,000 mg in 100 mls @ 3 mls/hr 02/07/18 21:17 02/12/18 11:58 Diprivan IV 0 mcg/kg/min .Q24H PRN 0 mls/hr TITRATE PER MD ORDER Titration Protocol 5 MCG/KG/MIN NOREPINEPHRINE BIT/0.9 % NACL 4 mg in 250 mls @ 15 mls/hr 02/07/18 21:21 02/24 08:22 Levophed 4 Mg/ 250 Ml Ns Premixed IV 20 mcg/min .[id number] PRN 75 mls/hr TITRATE PER MD ORDER Administration Protocol 4 MCG/MIN Vasopressin 20 units/ Sodium 101 mls @ 9.09 mls/hr 02/09/18 00:00 02/11/18 17 :47 Chloride IV 9.09 mls/hr .[id number] KELLY Administration Protocol 0.03 U/MIN Linezolid 600 mg in 300 mls @ 200 mls/hr 02/09/18 10:00 02/12/18 09:37 Zyvox 600mg/300ml D5w IVPB 02/18/18 10:01 200 mls/hr Q12 KELLY Administration Protocol Midazolam 100 mg/100ml in NS 100 mg in 100 mls @ 1 mls/hr 02/09/18 11:13 02/24 11:56 Midazolam 100 Mg/100ml In Ns IV 0 mg/hr .Q24H PRN 0 mls/hr Agitation Titration Protocol 1 MG/HR Valproate Sodium 1,000 mg/ 110 mls @ 100 mls/hr 02/09/18 22:00 02/12/18 09:38 Sodium Chloride IVPB 100 mls/hr Q12 KELLY Administration Levetiracetam 1,500 mg/ Sodium 115 mls @ 460 mls/hr 02/10/18 18:00 02/12/18 06:56 Chloride IV 460 mls/hr Q12H KELLY Administration Aztreonam 100 mls @ 100 mls/hr 02/10/18 11:30 02/12/18 06:00 Azactam 1 Gm IVPB 02/17/18 11:31 100 mls/hr Q8 KELLY Administration Protocol Doxycycline Hyclate 100 mg/ 100 mls @ 100 mls/hr 02/10/18 11:30 02/12/18 09: 37 Sodium Chloride IVPB 100 mls/hr Q12 KELLY Administration Protocol Dextrose/Sodium Chloride 1,000 mls @ 50 mls/hr 02/11/18 10:27 02/12/18 06:59 Dextrose 5%/0.9% Ns 1000 Ml IV 50 mls/hr .Q20H KELLY Administration Pantoprazole Sodium 40 mg in 100 mls @ 20 mls/hr 02/12/18 07:45 02/12/18 08: 24 Protonix 40mg Ivpb IVPB 20 mls/hr .Q5H KELLY Administration Phenobarbital 50 mg 02/10/18 18:00 02/12/18 06:01 Phenobarbital Inj IV 50 mg Q6 KELLY Administration - Patient Studies Lab Studies: Microbiology Studies 02/10/18 15:00 Gram Stain - Final Leg - Left Wound Culture - Preliminary Yeast Species Lab Studies 02/12/18 02/12/18 02/12/18 Range/Units 11:20 11:20 11:20 WBC (4.5-11.0) 10^3/ul RBC (3.5-6.1) 10^6/uL Hgb 10.8 L (14.0-18.0) g/dL Hct 32.1 L (42.0-52.0) % MCV (80.0-105.0) fl MCH (25.0-35.0) pg MCHC (31.0-37.0) g/dl RDW (11.5-14.5) % Plt Count (120.0-450.0) 10^3/uL MPV (7.0-11.0) fl Gran % (50.0-68.0) % Lymph % (Auto) (22.0-35.0) % [place] % (Auto) (1.0-6.0) % Eos % (Auto) (1.5-5.0) % Baso % (Auto) (0.0-3.0) % Gran # (1.4-6.5) Lymph # (Auto) (1.2-3.4) [place] # (Auto) (0.1-0.6) Eos # (Auto) (0.0-0.7) Baso # (Auto) (0.0-2.0) K/mm3 PT 12.0 (9.4-12.5) SECONDS INR 1.04 (0.93-1.08) APTT 31.3 (25.1-36.5) Seconds pCO2 (35-45) mm/Hg pO2 (80-100) mm/Hg HCO3 (21-28) mmol/L ABG pH (7.35-7.45) ABG Total CO2 (22-28) mmol.L ABG O2 Saturation (95-98) % ABG O2 Content (15-23) ML/dl ABG Base Excess (-2.0-3.0) mmol/L ABG Hemoglobin (11.7-17.4) g/dL ABG Carboxyhemoglobin (0.5-1.5) % POC ABG HHb (Measured) (0-5) % ABG Methemoglobin (0.0-3.0) % ABG O2 Capacity (16-24) mL/dl Hgb O2 Saturation (95.0-98.0) % FiO2 % Sodium (132-148) mmol/L Potassium (3.6-5.0) mmol/L Chloride (98-107) mmol/L Carbon Dioxide (21-33) mmol/L Anion Gap (10-20) BUN (7-21) mg/dL Creatinine (0.8-1.5) mg/dl Est GFR ( Amer) Est GFR (Non-Af Amer) POC Glucose (mg/dL) (65-110) mg/dL Random Glucose (70-110) mg/dL Calcium (8.4-10.5) mg/dL Total Bilirubin (0.2-1.3) mg/dL AST (17-59) U/L ALT (7-56) U/L Alkaline Phosphatase (38-126) U/L Total Protein (5.8-8.3) g/dL Albumin (3.0-4.8) g/dL Globulin gm/dL Albumin/Globulin Ratio (1.1-1.8) Stool Occult Blood (NEGATIVE) Blood Type Blood Type Confirm O POSITIVE Antibody Screen BBK History Checked 02/12/18 02/12/18 02/12/18 Range/Units 08:00 06:40 06:18 WBC (4.5-11.0) 10^3/ul RBC (3.5-6.1) 10^6/uL Hgb (14.0-18.0) g/dL Hct (42.0-52.0) % MCV (80.0-105.0) fl MCH (25.0-35.0) pg MCHC (31.0-37.0) g/dl RDW (11.5-14.5) % Plt Count (120.0-450.0) 10^3/uL MPV (7.0-11.0) fl Gran % (50.0-68.0) % Lymph % (Auto) (22.0-35.0) % [place] % (Auto) (1.0-6.0) % Eos % (Auto) (1.5-5.0) % Baso % (Auto) (0.0-3.0) % Gran # (1.4-6.5) Lymph # (Auto) (1.2-3.4) [place] # (Auto) (0.1-0.6) Eos # (Auto) (0.0-0.7) Baso # (Auto) (0.0-2.0) K/mm3 PT (9.4-12.5) SECONDS INR (0.93-1.08) APTT (25.1-36.5) Seconds pCO2 (35-45) mm/Hg pO2 (80-100) mm/Hg HCO3 (21-28) mmol/L ABG pH (7.35-7.45) ABG Total CO2 (22-28) mmol.L ABG O2 Saturation (95-98) % ABG O2 Content (15-23) ML/dl ABG Base Excess (-2.0-3.0) mmol/L ABG Hemoglobin (11.7-17.4) g/dL ABG Carboxyhemoglobin (0.5-1.5) % POC ABG HHb (Measured) (0-5) % ABG Methemoglobin (0.0-3.0) % ABG O2 Capacity (16-24) mL/dl Hgb O2 Saturation (95.0-98.0) % FiO2 % Sodium (132-148) mmol/L Potassium (3.6-5.0) mmol/L Chloride (98-107) mmol/L Carbon Dioxide (21-33) mmol/L Anion Gap (10-20) BUN (7-21) mg/dL Creatinine (0.8-1.5) mg/dl Est GFR ( Amer) Est GFR (Non-Af Amer) POC Glucose (mg/dL) 119 H (65-110) mg/dL Random Glucose (70-110) mg/dL Calcium (8.4-10.5) mg/dL Total Bilirubin (0.2-1.3) mg/dL AST (17-59) U/L ALT (7-56) U/L Alkaline Phosphatase (38-126) U/L Total Protein (5.8-8.3) g/dL Albumin (3.0-4.8) g/dL Globulin gm/dL Albumin/Globulin Ratio (1.1-1.8) Stool Occult Blood Positive H (NEGATIVE) Blood Type O POSITIVE Blood Type Confirm Antibody Screen Negative BBK History Checked No verified bt 02/12/18 02/12/18 02/12/18 Range/Units 05:10 04:50 04:50 WBC 11.3 H (4.5-11.0) 10^3/ul RBC 3.61 (3.5-6.1) 10^6/uL Hgb 11.1 L (14.0-18.0) g/dL Hct 32.6 L (42.0-52.0) % MCV 90.3 (80.0-105.0) fl MCH 30.7 (25.0-35.0) pg MCHC 34.0 (31.0-37.0) g/dl RDW 18.7 H (11.5-14.5) % Plt Count 162 (120.0-450.0) 10^3/uL MPV 10.4 (7.0-11.0) fl Gran % 93.6 H (50.0-68.0) % Lymph % (Auto) 3.6 L (22.0-35.0) % [place] % (Auto) 2.7 (1.0-6.0) % Eos % (Auto) 0.1 L (1.5-5.0) % Baso % (Auto) 0.0 (0.0-3.0) % Gran # 10.61 H (1.4-6.5) Lymph # (Auto) 0.4 L (1.2-3.4) [place] # (Auto) 0.3 (0.1-0.6) Eos # (Auto) 0.0 (0.0-0.7) Baso # (Auto) 0.00 (0.0-2.0) K/mm3 PT (9.4-12.5) SECONDS INR (0.93-1.08) APTT (25.1-36.5) Seconds pCO2 25 L (35-45) mm/Hg pO2 158.0 H (80-100) mm/Hg HCO3 18.6 L (21-28) mmol/L ABG pH 7.48 H (7.35-7.45) ABG Total CO2 19.4 L (22-28) mmol.L ABG O2 Saturation 99.4 H (95-98) % ABG O2 Content 13.7 L (15-23) ML/dl ABG Base Excess -3.9 L (-2.0-3.0) mmol/L ABG Hemoglobin 9.8 L (11.7-17.4) g/dL ABG Carboxyhemoglobin 1.6 H (0.5-1.5) % POC ABG HHb (Measured) 0.6 (0-5) % ABG Methemoglobin 0.8 (0.0-3.0) % ABG O2 Capacity 13.8 L (16-24) mL/dl Hgb O2 Saturation 97.0 (95.0-98.0) % FiO2 40.0 % Sodium 135 (132-148) mmol/L Potassium 3.0 L (3.6-5.0) mmol/L Chloride 105 (98-107) mmol/L Carbon Dioxide 22 (21-33) mmol/L Anion Gap 10 (10-20) BUN 19 (7-21) mg/dL Creatinine 1.1 (0.8-1.5) mg/dl Est GFR ( Amer) > 60 Est GFR (Non-Af Amer) > 60 POC Glucose (mg/dL) (65-110) mg/dL Random Glucose 156 H (70-110) mg/dL Calcium 7.3 L (8.4-10.5) mg/dL Total Bilirubin 1.2 (0.2-1.3) mg/dL AST 28 (17-59) U/L ALT 31 (7-56) U/L Alkaline Phosphatase 97 (38-126) U/L Total Protein 4.3 L (5.8-8.3) g/dL Albumin 2.0 L (3.0-4.8) g/dL Globulin 2.3 gm/dL Albumin/Globulin Ratio 0.9 L (1.1-1.8) Stool Occult Blood (NEGATIVE) Blood Type Blood Type Confirm Antibody Screen BBK History Checked 02/12/18 02/11/18 02/11/18 Range/Units 00:00 22:29 17:45 WBC 11.4 H (4.5-11.0) 10^3/ul RBC 3.57 (3.5-6.1) 10^6/uL Hgb 10.8 L (14.0-18.0) g/dL Hct 32.3 L (42.0-52.0) % MCV 90.5 (80.0-105.0) fl MCH 30.3 (25.0-35.0) pg MCHC 33.4 (31.0-37.0) g/dl RDW 18.6 H (11.5-14.5) % Plt Count 146 (120.0-450.0) 10^3/uL MPV 9.6 (7.0-11.0) fl Gran % 93.3 H (50.0-68.0) % Lymph % (Auto) 3.3 L (22.0-35.0) % [place] % (Auto) 3.2 (1.0-6.0) % Eos % (Auto) 0.2 L (1.5-5.0) % Baso % (Auto) 0.0 (0.0-3.0) % Gran # 10.61 H (1.4-6.5) Lymph # (Auto) 0.4 L (1.2-3.4) [place] # (Auto) 0.4 (0.1-0.6) Eos # (Auto) 0.0 (0.0-0.7) Baso # (Auto) 0.00 (0.0-2.0) K/mm3 PT (9.4-12.5) SECONDS INR (0.93-1.08) APTT (25.1-36.5) Seconds pCO2 (35-45) mm/Hg pO2 (80-100) mm/Hg HCO3 (21-28) mmol/L ABG pH (7.35-7.45) ABG Total CO2 (22-28) mmol.L ABG O2 Saturation (95-98) % ABG O2 Content (15-23) ML/dl ABG Base Excess (-2.0-3.0) mmol/L ABG Hemoglobin (11.7-17.4) g/dL ABG Carboxyhemoglobin (0.5-1.5) % POC ABG HHb (Measured) (0-5) % ABG Methemoglobin (0.0-3.0) % ABG O2 Capacity (16-24) mL/dl Hgb O2 Saturation (95.0-98.0) % FiO2 % Sodium (132-148) mmol/L Potassium (3.6-5.0) mmol/L Chloride (98-107) mmol/L Carbon Dioxide (21-33) mmol/L Anion Gap (10-20) BUN (7-21) mg/dL Creatinine (0.8-1.5) mg/dl Est GFR ( Amer) Est GFR (Non-Af Amer) POC Glucose (mg/dL) 182 H 131 H (65-110) mg/dL Random Glucose (70-110) mg/dL Calcium (8.4-10.5) mg/dL Total Bilirubin (0.2-1.3) mg/dL AST (17-59) U/L ALT (7-56) U/L Alkaline Phosphatase (38-126) U/L Total Protein (5.8-8.3) g/dL Albumin (3.0-4.8) g/dL Globulin gm/dL Albumin/Globulin Ratio (1.1-1.8) Stool Occult Blood (NEGATIVE) Blood Type Blood Type Confirm Antibody Screen BBK History Checked Laboratory Results - last 24 hr 02/11/18 02/11/18 02/12/18 17:45 22:29 00:00 WBC 11.4 H RBC 3.57 Hgb 10.8 L Hct 32.3 L MCV 90.5 MCH 30.3 MCHC 33.4 RDW 18.6 H Plt Count 146 MPV 9.6 Gran % 93.3 H Lymph % (Auto) 3.3 L [place] % (Auto) 3.2 Eos % (Auto) 0.2 L Baso % (Auto) 0.0 Gran # 10.61 H Lymph # (Auto) 0.4 L [place] # (Auto) 0.4 Eos # (Auto) 0.0 Baso # (Auto) 0.00 PT INR APTT pCO2 pO2 HCO3 ABG pH ABG Total CO2 ABG O2 Saturation ABG O2 Content ABG Base Excess ABG Hemoglobin ABG Carboxyhemoglobin POC ABG HHb (Measured) ABG Methemoglobin ABG O2 Capacity Hgb O2 Saturation FiO2 Sodium Potassium Chloride Carbon Dioxide Anion Gap BUN Creatinine Est GFR ( Amer) Est GFR (Non-Af Amer) POC Glucose (mg/dL) 131 H 182 H Random Glucose Calcium Total Bilirubin AST ALT Alkaline Phosphatase Total Protein Albumin Globulin Albumin/Globulin Ratio Stool Occult Blood Blood Type Blood Type Confirm Antibody Screen BBK History Checked 02/12/18 02/12/18 02/12/18 04:50 04:50 05:10 WBC 11.3 H RBC 3.61 Hgb 11.1 L Hct 32.6 L MCV 90.3 MCH 30.7 MCHC 34.0 RDW 18.7 H Plt Count 162 MPV 10.4 Gran % 93.6 H Lymph % (Auto) 3.6 L [place] % (Auto) 2.7 Eos % (Auto) 0.1 L Baso % (Auto) 0.0 Gran # 10.61 H Lymph # (Auto) 0.4 L [place] # (Auto) 0.3 Eos # (Auto) 0.0 Baso # (Auto) 0.00 PT INR APTT pCO2 25 L pO2 158.0 H HCO3 18.6 L ABG pH 7.48 H ABG Total CO2 19.4 L ABG O2 Saturation 99.4 H ABG O2 Content 13.7 L ABG Base Excess -3.9 L ABG Hemoglobin 9.8 L ABG Carboxyhemoglobin 1.6 H POC ABG HHb (Measured) 0.6 ABG Methemoglobin 0.8 ABG O2 Capacity 13.8 L Hgb O2 Saturation 97.0 FiO2 40.0 Sodium 135 Potassium 3.0 L Chloride 105 Carbon Dioxide 22 Anion Gap 10 BUN 19 Creatinine 1.1 Est GFR ( Amer) > 60 Est GFR (Non-Af Amer) > 60 POC Glucose (mg/dL) Random Glucose 156 H Calcium 7.3 L Total Bilirubin 1.2 AST 28 ALT 31 Alkaline Phosphatase 97 Total Protein 4.3 L Albumin 2.0 L Globulin 2.3 Albumin/Globulin Ratio 0.9 L Stool Occult Blood Blood Type Blood Type Confirm Antibody Screen BBK History Checked 02/12/18 02/12/18 02/12/18 06:18 06:40 08:00 WBC RBC Hgb Hct MCV MCH MCHC RDW Plt Count MPV Gran % Lymph % (Auto) [place] % (Auto) Eos % (Auto) Baso % (Auto) Gran # Lymph # (Auto) [place] # (Auto) Eos # (Auto) Baso # (Auto) PT INR APTT pCO2 pO2 HCO3 ABG pH ABG Total CO2 ABG O2 Saturation ABG O2 Content ABG Base Excess ABG Hemoglobin ABG Carboxyhemoglobin POC ABG HHb (Measured) ABG Methemoglobin ABG O2 Capacity Hgb O2 Saturation FiO2 Sodium Potassium Chloride Carbon Dioxide Anion Gap BUN Creatinine Est GFR ( Amer) Est GFR (Non-Af Amer) POC Glucose (mg/dL) 119 H Random Glucose Calcium Total Bilirubin AST ALT Alkaline Phosphatase Total Protein Albumin Globulin Albumin/Globulin Ratio Stool Occult Blood Positive H Blood Type O POSITIVE Blood Type Confirm Antibody Screen Negative BBK History Checked No verified bt 02/12/18 02/12/18 02/12/18 11:20 11:20 11:20 WBC RBC Hgb 10.8 L Hct 32.1 L MCV MCH MCHC RDW Plt Count MPV Gran % Lymph % (Auto) [place] % (Auto) Eos % (Auto) Baso % (Auto) Gran # Lymph # (Auto) [place] # (Auto) Eos # (Auto) Baso # (Auto) PT 12.0 INR 1.04 APTT 31.3 pCO2 pO2 HCO3 ABG pH ABG Total CO2 ABG O2 Saturation ABG O2 Content ABG Base Excess ABG Hemoglobin ABG Carboxyhemoglobin POC ABG HHb (Measured) ABG Methemoglobin ABG O2 Capacity Hgb O2 Saturation FiO2 Sodium Potassium Chloride Carbon Dioxide Anion Gap BUN Creatinine Est GFR ( Amer) Est GFR (Non-Af Amer) POC Glucose (mg/dL) Random Glucose Calcium Total Bilirubin AST ALT Alkaline Phosphatase Total Protein Albumin Globulin Albumin/Globulin Ratio Stool Occult Blood Blood Type Blood Type Confirm O POSITIVE Antibody Screen BBK History Checked Attending/Attestation - Attestation I have personally seen and examined this patient.: Yes I have fully participated in the care of the patient.: Yes I have reviewed all pertinent clinical information: Yes Notes (Text): 02/12/18 13:49 67 yo male with severe anoxic brain injury, in status epilepticus, no on phenobarbital. Spoke with Dr. Arias-->stop propofol and versed and do EEG, while continuing phenobarb. Prognostication by neuro after results of EEG available ccm time 40 min
--- NOTE | 2018-02-12 06:33 | CP.PCM.PN ---
Subjective - Date & Time of Evaluation Date of Evaluation: 02/12/18 Time of Evaluation: 06:31 - Subjective Subjective: Had rectal bleeding x 2. Medical record reviewed. Plan:See my orders. Objective - Vital Signs/Intake and Output Vital Signs (last 24 hours): Temp Pulse Resp BP Pulse Ox 97.2 F L 73 18 132/86 100 02/12/18 04:00 02/12/18 04:00 02/12/18 00:00 02/12/18 01:00 02/12/18 01:00 Intake and Output: 02/11/18 02/12/18 18:59 06:59 Intake Total 2238 1977 Output Total 1000 475 Balance 1238 1502 - Medications Medications: Current Medications Artificial Tears (Artificial Tears Opht Oint) 0 gm OU Q6 KELLY Last Admin: 02/12/18 00:40 Dose: Not Given Hydrocortisone Sodium Succinate (Solu-Cortef) 50 mg IVP Q8 KELLY Last Admin: 02/12/18 06:01 Dose: 50 mg Propofol (Diprivan) 1,000 mg in 100 mls @ 3 mls/hr IV .Q24H PRN; Protocol; 5 MCG/KG/MIN PRN Reason: TITRATE PER MD ORDER Last Admin: 02/11/18 21:31 Dose: 5 mcg/kg/min, 3 mls/hr NOREPINEPHRINE BIT/0.9 % NACL (Levophed 4 Mg/ 250 Ml Ns Premixed) 4 mg in 250 mls @ 15 mls/hr IV .[id number] PRN; Protocol; 4 MCG/MIN PRN Reason: TITRATE PER MD ORDER Last Admin: 02/12/18 02:50 Dose: 20 mcg/min, 75 mls/hr Fentanyl Citrate (Fentanyl Citrate/Sodium Chloride 1 Mg/100 Ml) 1,000 mcg in 100 mls @ 2 mls/hr IV .Q24H PRN; Protocol; 20 MCG/HR PRN Reason: TITRATE PER MD ORDER Last Titration: 02/09/18 19:00 Dose: Infused Vasopressin 20 units/ Sodium (Chloride) 101 mls @ 9.09 mls/hr IV .Q11H7M KELLY; 0.03 U/MIN PRN Reason: Protocol Last Admin: 02/11/18 17:47 Dose: 9.09 mls/hr Linezolid (Zyvox 600mg/300ml D5w) 600 mg in 300 mls @ 200 mls/hr IVPB Q12 KELLY PRN Reason: Protocol Stop: 02/18/18 10:01 Last Admin: 02/11/18 21:31 Dose: 200 mls/hr Midazolam 100 mg/100ml in NS (Midazolam 100 Mg/100ml In Ns) 100 mg in 100 mls @ 1 mls/hr IV .Q24H PRN; Protocol; 1 MG/HR PRN Reason: Agitation Last Admin: 02/10/18 15:44 Dose: 3 mg/hr, 3 mls/hr Valproate Sodium 1,000 mg/ (Sodium Chloride) 110 mls @ 100 mls/hr IVPB Q12 KELLY Last Admin: 02/11/18 21:30 Dose: 100 mls/hr Levetiracetam 1,500 mg/ Sodium (Chloride) 115 mls @ 460 mls/hr IV Q12H KELLY Last Admin: 02/11/18 17:42 Dose: 460 mls/hr Aztreonam (Azactam 1 Gm) 100 mls @ 100 mls/hr IVPB Q8 KELLY PRN Reason: Protocol Stop: 02/17/18 11:31 Last Admin: 02/12/18 06:00 Dose: 100 mls/hr Doxycycline Hyclate 100 mg/ (Sodium Chloride) 100 mls @ 100 mls/hr IVPB Q12 KELLY PRN Reason: Protocol Last Admin: 02/11/18 21:29 Dose: 100 mls/hr Dextrose/Sodium Chloride (Dextrose 5%/0.9% Ns 1000 Ml) 1,000 mls @ 50 mls/hr IV .Q20H KELLY Last Admin: 02/11/18 13:16 Dose: 50 mls/hr Pantoprazole Sodium (Protonix Inj) 40 mg IVP Q12 KELLY Phenobarbital (Phenobarbital Inj) 50 mg IV Q6 KELLY Last Admin: 02/12/18 06:01 Dose: 50 mg - Labs Labs: 02/12/18 04:50 02/12/18 04:50 PT 22.8 SECONDS (9.4-12.5) H 02/08/18 23:55 INR 1.97 (0.93-1.08) H 02/08/18 23:55 APTT 42.5 Seconds (25.1-36.5) H 02/08/18 23:55
[2018-02-12] MEDS: levETIRAcetam 1,500 MG in Sodium Chloride 0.9% 100 ML IV SCH ×2 (06:56→18:27)
[2018-02-12] MEDS: Dextrose 5%/0.9% NS 1,000 ML IV SCH (06:59)
--- NOTE | 2018-02-12 08:02 | RAD ---
HISTORY: intubated COMPARISON: Portable chest 02/11/2018. FINDINGS: LUNGS: Right center venous line, nasogastric and endotracheal tubes are unchanged in position with pacemaker/AICD again identified. Based remains rotated toward the right limited patchy infiltrate remaining questioned at the mid right lung zone. Borderline pulmonary vascular congestion. No pneumothorax bilaterally. Mild left pleural effusion unchanged with none on the left. OSSEOUS STRUCTURES: No significant abnormalities. VISUALIZED UPPER ABDOMEN: Normal. OTHER FINDINGS: None. IMPRESSION: Right perihilar patchy density unchanged with borderline CHF pattern evident. Left pleural effusion remains mild but is unchanged. No right pleural effusion once again.
[2018-02-12] MEDS: Pantoprazole 40mg/100mL NS 40 MG/100 ML BAG IVPB SCH ×4 (08:24→22:56)
[2018-02-12] MEDS: Linezolid 600 mg in D5W 300 ml 600 MG/300 ML BAG IVPB SCH ×2 (09:37→22:00)
[2018-02-12] MEDS: Valproate 1,000 MG in Sodium Chloride 0.9% 100 ML IVPB SCH ×2 (09:38→21:57)
--- NOTE | 2018-02-12 10:51 | CP.PCM.PN ---
Subjective - Date & Time of Evaluation Date of Evaluation: 02/12/18 Time of Evaluation: 10:20 - Subjective Subjective: Still on the ventilator, developed hypothermia overnight, patient still on vasopressor support. Objective - Vital Signs/Intake and Output Vital Signs (last 24 hours): Temp Pulse Resp BP Pulse Ox 96.6 F L 70 18 123/81 100 02/12/18 07:00 02/12/18 07:00 02/12/18 00:00 02/12/18 07:00 02/12/18 07:00 Intake and Output: 02/12/18 02/12/18 06:59 18:59 Intake Total 3232 350 Output Total 575 Balance 2657 350 - Medications Medications: Current Medications Artificial Tears (Artificial Tears Opht Oint) 0 gm OU Q6 KELLY Last Admin: 02/12/18 06:59 Dose: Not Given Hydrocortisone Sodium Succinate (Solu-Cortef) 50 mg IVP Q8 KELLY Last Admin: 02/12/18 06:01 Dose: 50 mg Propofol (Diprivan) 1,000 mg in 100 mls @ 3 mls/hr IV .Q24H PRN; Protocol; 5 MCG/KG/MIN PRN Reason: TITRATE PER MD ORDER Last Admin: 02/11/18 21:31 Dose: 5 mcg/kg/min, 3 mls/hr NOREPINEPHRINE BIT/0.9 % NACL (Levophed 4 Mg/ 250 Ml Ns Premixed) 4 mg in 250 mls @ 15 mls/hr IV .[id number] PRN; Protocol; 4 MCG/MIN PRN Reason: TITRATE PER MD ORDER Last Admin: 02/12/18 08:22 Dose: 20 mcg/min, 75 mls/hr Fentanyl Citrate (Fentanyl Citrate/Sodium Chloride 1 Mg/100 Ml) 1,000 mcg in 100 mls @ 2 mls/hr IV .Q24H PRN; Protocol; 20 MCG/HR PRN Reason: TITRATE PER MD ORDER Last Titration: 02/09/18 19:00 Dose: Infused Vasopressin 20 units/ Sodium (Chloride) 101 mls @ 9.09 mls/hr IV .Q11H7M KELLY; 0.03 U/MIN PRN Reason: Protocol Last Admin: 02/11/18 17:47 Dose: 9.09 mls/hr Linezolid (Zyvox 600mg/300ml D5w) 600 mg in 300 mls @ 200 mls/hr IVPB Q12 KELLY PRN Reason: Protocol Stop: 02/18/18 10:01 Last Admin: 02/11/18 21:31 Dose: 200 mls/hr Midazolam 100 mg/100ml in NS (Midazolam 100 Mg/100ml In Ns) 100 mg in 100 mls @ 1 mls/hr IV .Q24H PRN; Protocol; 1 MG/HR PRN Reason: Agitation Last Admin: 02/10/18 15:44 Dose: 3 mg/hr, 3 mls/hr Valproate Sodium 1,000 mg/ (Sodium Chloride) 110 mls @ 100 mls/hr IVPB Q12 KELLY Last Admin: 02/11/18 21:30 Dose: 100 mls/hr Levetiracetam 1,500 mg/ Sodium (Chloride) 115 mls @ 460 mls/hr IV Q12H KELLY Last Admin: 02/12/18 06:56 Dose: 460 mls/hr Aztreonam (Azactam 1 Gm) 100 mls @ 100 mls/hr IVPB Q8 KELLY PRN Reason: Protocol Stop: 02/17/18 11:31 Last Admin: 02/12/18 06:00 Dose: 100 mls/hr Doxycycline Hyclate 100 mg/ (Sodium Chloride) 100 mls @ 100 mls/hr IVPB Q12 KELLY PRN Reason: Protocol Last Admin: 02/11/18 21:29 Dose: 100 mls/hr Dextrose/Sodium Chloride (Dextrose 5%/0.9% Ns 1000 Ml) 1,000 mls @ 50 mls/hr IV .Q20H KELLY Last Admin: 02/12/18 06:59 Dose: 50 mls/hr Pantoprazole Sodium (Protonix 40mg Ivpb) 40 mg in 100 mls @ 20 mls/hr IVPB .Q5H KELLY Last Admin: 02/12/18 08:24 Dose: 20 mls/hr Phenobarbital (Phenobarbital Inj) 50 mg IV Q6 KELLY Last Admin: 02/12/18 06:01 Dose: 50 mg - Labs Labs: 02/12/18 04:50 02/12/18 04:50 PT 22.8 SECONDS (9.4-12.5) H 02/08/18 23:55 INR 1.97 (0.93-1.08) H 02/08/18 23:55 APTT 42.5 Seconds (25.1-36.5) H 02/08/18 23:55 - Constitutional Appears: Other (intubated, sedated, on vasopressor support) - ENT Exam Additional comments: ET tube in place - Respiratory Exam Respiratory Exam: Decreased Breath Sounds - Cardiovascular Exam Cardiovascular Exam: +S1, +S2 - GI/Abdominal Exam GI & Abdominal Exam: Soft. absent: Tenderness Assessment and Plan - Assessment and Plan (Free Text) Plan: Assessment Systemic Inflammatory response syndrome with hypotension after cardiac arrest, with ventilator-dependent respiratory failure and status epilepticus, consider severe sepsis / septic on top of caridogenic shock from right sided HCAP / aspiration pneumonia on top of acute on chronic CHF history left leg skin and skin structure infection, growing Roultella and MSSA, clinically improving history of right leg skin and skin structure infection with Pseudomonas and MRSA HTN COPD S/P pacemaker placement chronic atrial fibrillation on anticoagulation S/P right knee replacement chronic CHF with dilated cardiomyopathy Plan on Zyvox day 5 and Azactam day [address] Arias since patient is continually seizing - will also continue Doxycycline day 3 and will follow up final culture results (so far negative) discussed with family that overall prognosis is poor and they understand - patient is currently in a medically-induced coma because of seizures will continue to follow clinically
[2018-02-12 11:37] LABS: HEMOGLOBIN 10.8 g/dL (14.0-18.0)
[2018-02-12 11:47] LABS: INR 1.04 (0.93-1.08); PARTIAL THROMBOPLASTIN TIME 31.3 Seconds (25.1-36.5)
--- NOTE | 2018-02-12 12:10 | CP.PCM.CON ---
Addendum entered and electronically signed by Gracia Birmingham DO 02/12/18 17: 36: Will transfuse if needed. Can start tube feeds tomorrow. Bleeding can possibly be from rectal varices from alcoholic cirrhosis. Will check ammonia level as well to rule out hepatic encephalopathy. Original Note: <Gracia Birmingham - Last Filed: 02/12/18 11:51> History of Present Illness - History of Present Illness History of Present Illness: GI Consult Note for Sandy Barba PGY2 Reason for consult: GI bleed This is a 67yo male with past medical history of A.fib (was on Eliquis at home) , cardiomyopathy s/p AICD, HTN, cellulitis of LE, non-compliance, EtOH abuse, prostate ca treated with seed implant who was admitted to ICU for cardiac arrest. Patient was found in the field and resuscitated in the field. He also coded in the ED and was once again resuscitated. Patient was then admitted to ICU with hypothermic protocol initiated. AICD was interrogated which did not showed any evidence of arrhythmia. Tox screen was negative. Head CT showed no acute abnormalities on admission. Patient is in shock and is intubated, sedated and on pressors. EEG was done which showed active seizures. Patient is now on seizure medications. He also was found to have bilateral pleural effusions and is on antibiotics. Overnight patient was found to have bright red blood mixed with stool. He has never had any history of GI bleed before. As per , patient had colonoscopy > 10yrs ago and some polyps were removed. He never had an EGD before. Patient was on Heparin SC while in the hospital for DVT prophylaxis. CT A/P was reviewed which did showed possibility of liver cirrhosis. INR was ~2 on admission, but has now normalized to 1.0. Past medical history: A.fib (was on Eliquis at home), cardiomyopathy, HTN, cellulitis of LE, non-compliance, prostate ca treated with seed implant Past surgical history: AICD/pacer, L hip surgery, R knee replacement Meds: as per NOV Allergies: Penicillin (ANAPHYLAXIS) Social history: Alcoholism (drinks 1 pint of vodka and ~3 beers daily), cocaine use in past, denies tobacco use. Lives with . Review of Systems - Review of Systems Systems not reviewed;Unavailable: Intubated Past Patient History - Infectious Disease Hx of Infectious Diseases: MRSA - Past Social History Smoking Status: Unknown If Ever Smoked - CARDIAC Hx Cardiac Disorders: Yes Hx Congestive Heart Failure: Yes Hx Hypertension: Yes - PULMONARY Hx Chronic Obstructive Pulmonary Disease (COPD): Yes - NEUROLOGICAL Hx Neurological Disorder: No - HEENT Hx HEENT Problems: No - RENAL Hx Chronic Kidney Disease: No - ENDOCRINE/METABOLIC Hx Endocrine Disorders: No - HEMATOLOGICAL/ONCOLOGICAL Hx Blood Disorders: No - INTEGUMENTARY Hx Dermatological Problems: Yes Other/Comment: BILATERAL LE EDEMA PITING +4 EXTENDING TO TESTICLES AND LOWER TO MID BACK,FLUSHED SKIN.MELISSA COLORED SKIN.'. RIGHT LEG MORE SWOLLEN THAN LEFT WITH AN OPENED WOUND JUST BELOW KNEE BIG A QUARTER WITH SMOOTH EDGES.' LEFT LEG WITH DRY THICKENED FLUSHED TO RED COLORED SKIN. - MUSCULOSKELETAL/RHEUMATOLOGICAL Hx Musculoskeletal Disorders: Yes Hx Degenerative Joint Disease: Yes Hx Falls: Yes (fell 11/29/17) Hx Unsteady Gait: Yes - GASTROINTESTINAL Hx Gastrointestinal Disorders: No - GENITOURINARY/GYNECOLOGICAL Hx Prostate Problems: Yes (Seeds in prostate) - PSYCHIATRIC Hx Psychophysiologic Disorder: No - SURGICAL HISTORY Hx Joint Replacement: Yes (right knee left hip) - ANESTHESIA Hx Anesthesia Reactions: No Meds Allergies/Adverse Reactions: Allergies Allergy/AdvReac Type Severity Reaction Status Date / Time Penicillins Allergy Mild ANAPHYLAXIS Verified 01/28/18 19:26 - Medications Medications: Current Medications Artificial Tears (Artificial Tears Opht Oint) 0 gm OU Q6 [facility] Last Admin: 02/12/18 06:59 Dose: Not Given Hydrocortisone Sodium Succinate (Solu-Cortef) 50 mg IVP Q8 [facility] Last Admin: 02/12/18 06:01 Dose: 50 mg Propofol (Diprivan) 1,000 mg in 100 mls @ 3 mls/hr IV .Q24H PRN; Protocol; 5 MCG/KG/MIN PRN Reason: TITRATE PER MD ORDER Last Admin: 02/11/18 21:31 Dose: 5 mcg/kg/min, 3 mls/hr NOREPINEPHRINE BIT/0.9 % NACL (Levophed 4 Mg/ 250 Ml Ns Premixed) 4 mg in 250 mls @ 15 mls/hr IV .[id number] PRN; Protocol; 4 MCG/MIN PRN Reason: TITRATE PER MD ORDER Last Admin: 02/12/18 08:22 Dose: 20 mcg/min, 75 mls/hr Vasopressin 20 units/ Sodium (Chloride) 101 mls @ 9.09 mls/hr IV .Q11H7M KELLY; 0.03 U/MIN PRN Reason: Protocol Last Admin: 02/11/18 17:47 Dose: 9.09 mls/hr Linezolid (Zyvox 600mg/300ml D5w) 600 mg in 300 mls @ 200 mls/hr IVPB Q12 KELLY PRN Reason: Protocol Stop: 02/18/18 10:01 Last Admin: 02/12/18 09:37 Dose: 200 mls/hr Midazolam 100 mg/100ml in NS (Midazolam 100 Mg/100ml In Ns) 100 mg in 100 mls @ 1 mls/hr IV .Q24H PRN; Protocol; 1 MG/HR PRN Reason: Agitation Last Titration: 02/12/18 11:10 Dose: 3 mg/hr, 3 mls/hr Valproate Sodium 1,000 mg/ (Sodium Chloride) 110 mls @ 100 mls/hr IVPB Q12 KELLY Last Admin: 02/12/18 09:38 Dose: 100 mls/hr Levetiracetam 1,500 mg/ Sodium (Chloride) 115 mls @ 460 mls/hr IV Q12H KELLY Last Admin: 02/12/18 06:56 Dose: 460 mls/hr Aztreonam (Azactam 1 Gm) 100 mls @ 100 mls/hr IVPB Q8 KELLY PRN Reason: Protocol Stop: 02/17/18 11:31 Last Admin: 02/12/18 06:00 Dose: 100 mls/hr Doxycycline Hyclate 100 mg/ (Sodium Chloride) 100 mls @ 100 mls/hr IVPB Q12 KELLY PRN Reason: Protocol Last Admin: 02/12/18 09:37 Dose: 100 mls/hr Dextrose/Sodium Chloride (Dextrose 5%/0.9% Ns 1000 Ml) 1,000 mls @ 50 mls/hr IV .Q20H KELLY Last Admin: 02/12/18 06:59 Dose: 50 mls/hr Pantoprazole Sodium (Protonix 40mg Ivpb) 40 mg in 100 mls @ 20 mls/hr IVPB .Q5H [facility] Last Admin: 02/12/18 08:24 Dose: 20 mls/hr Potassium Chloride (Potassium Chloride 20 Meq/100 Ml) 20 meq in 100 mls @ 50 mls/hr IVPB Q2H [facility] Stop: 02/12/18 13:29 Last Admin: 02/12/18 09:37 Dose: 50 mls/hr Phenobarbital (Phenobarbital Inj) 50 mg IV Q6 [facility] Last Admin: 02/12/18 06:01 Dose: 50 mg Physical Exam - Constitutional Appears: Chronically Ill - Head Exam Head Exam: NORMAL INSPECTION, NORMOCEPHALIC - ENT Exam ENT Exam: Mucous Membranes Moist - Respiratory Exam Respiratory Exam: Rhonchi, NORMAL BREATHING PATTERN. absent: Rales, Wheezes - Cardiovascular Exam Cardiovascular Exam: REGULAR RHYTHM, +S1, +S2. absent: Gallop, Rubs, Systolic Murmur - GI/Abdominal Exam GI & Abdominal Exam: Normal Bowel Sounds, Soft. absent: Mass, Rebound, Rigid, Tenderness - Rectal Exam Rectal Exam: Bloody Stool - Extremities Exam Extremities exam: Positive for: pedal edema Additional comments: LLE wound with dressing in place - Skin Skin Exam: Dry, Warm Results - Vital Signs Recent Vital Signs: Last Vital Signs Temp 95.7 F L 02/12/18 11:00 Pulse 70 02/12/18 11:00 Resp 18 02/12/18 00:00 BP 128/84 02/12/18 11:00 Pulse Ox 100 02/12/18 11:00 - Labs Result Diagrams: 02/12/18 11:20 02/12/18 04:50 Labs: Laboratory Results - last 24 hr 02/11/18 02/11/18 02/11/18 11:00 17:45 22:29 WBC 11.4 H RBC 3.57 Hgb 10.8 L Hct 32.3 L MCV 90.5 MCH 30.3 MCHC 33.4 RDW 18.6 H Plt Count 146 MPV 9.6 Gran % 93.3 H Lymph % (Auto) 3.3 L [place] % (Auto) 3.2 Eos % (Auto) 0.2 L Baso % (Auto) 0.0 Gran # 10.61 H Lymph # (Auto) 0.4 L [place] # (Auto) 0.4 Eos # (Auto) 0.0 Baso # (Auto) 0.00 Neutrophils % (Manual) 95 H Band Neutrophils % 1 Lymphocytes % (Manual) 3 L Monocytes % (Manual) 1 Platelet Evaluation Normal PT INR APTT pCO2 pO2 HCO3 ABG pH ABG Total CO2 ABG O2 Saturation ABG O2 Content ABG Base Excess ABG Hemoglobin ABG Carboxyhemoglobin POC ABG HHb (Measured) ABG Methemoglobin ABG O2 Capacity Hgb O2 Saturation FiO2 Sodium Potassium Chloride Carbon Dioxide Anion Gap BUN Creatinine Est GFR ( Amer) Est GFR (Non-Af Amer) POC Glucose (mg/dL) 131 H Random Glucose Calcium Total Bilirubin AST ALT Alkaline Phosphatase Total Protein Albumin Globulin Albumin/Globulin Ratio Stool Occult Blood Blood Type Antibody Screen BBK History Checked 02/12/18 02/12/18 02/12/18 00:00 04:50 04:50 WBC 11.3 H RBC 3.61 Hgb 11.1 L Hct 32.6 L MCV 90.3 MCH 30.7 MCHC 34.0 RDW 18.7 H Plt Count 162 MPV 10.4 Gran % 93.6 H Lymph % (Auto) 3.6 L [place] % (Auto) 2.7 Eos % (Auto) 0.1 L Baso % (Auto) 0.0 Gran # 10.61 H Lymph # (Auto) 0.4 L [place] # (Auto) 0.3 Eos # (Auto) 0.0 Baso # (Auto) 0.00 Neutrophils % (Manual) Band Neutrophils % Lymphocytes % (Manual) Monocytes % (Manual) Platelet Evaluation PT INR APTT pCO2 pO2 HCO3 ABG pH ABG Total CO2 ABG O2 Saturation ABG O2 Content ABG Base Excess ABG Hemoglobin ABG Carboxyhemoglobin POC ABG HHb (Measured) ABG Methemoglobin ABG O2 Capacity Hgb O2 Saturation FiO2 Sodium 135 Potassium 3.0 L Chloride 105 Carbon Dioxide 22 Anion Gap 10 BUN 19 Creatinine 1.1 Est GFR ( Amer) > 60 Est GFR (Non-Af Amer) > 60 POC Glucose (mg/dL) 182 H Random Glucose 156 H Calcium 7.3 L Total Bilirubin 1.2 AST 28 ALT 31 Alkaline Phosphatase 97 Total Protein 4.3 L Albumin 2.0 L Globulin 2.3 Albumin/Globulin Ratio 0.9 L Stool Occult Blood Blood Type Antibody Screen BBK History Checked 02/12/18 02/12/18 02/12/18 05:10 06:18 06:40 WBC RBC Hgb Hct MCV MCH MCHC RDW Plt Count MPV Gran % Lymph % (Auto) [place] % (Auto) Eos % (Auto) Baso % (Auto) Gran # Lymph # (Auto) [place] # (Auto) Eos # (Auto) Baso # (Auto) Neutrophils % (Manual) Band Neutrophils % Lymphocytes % (Manual) Monocytes % (Manual) Platelet Evaluation PT INR APTT pCO2 25 L pO2 158.0 H HCO3 18.6 L ABG pH 7.48 H ABG Total CO2 19.4 L ABG O2 Saturation 99.4 H ABG O2 Content 13.7 L ABG Base Excess -3.9 L ABG Hemoglobin 9.8 L ABG Carboxyhemoglobin 1.6 H POC ABG HHb (Measured) 0.6 ABG Methemoglobin 0.8 ABG O2 Capacity 13.8 L Hgb O2 Saturation 97.0 FiO2 40.0 Sodium Potassium Chloride Carbon Dioxide Anion Gap BUN Creatinine Est GFR ( Amer) Est GFR (Non-Af Amer) POC Glucose (mg/dL) 119 H Random Glucose Calcium Total Bilirubin AST ALT Alkaline Phosphatase Total Protein Albumin Globulin Albumin/Globulin Ratio Stool Occult Blood Positive H Blood Type Antibody Screen BBK History Checked 02/12/18 02/12/18 02/12/18 08:00 11:20 11:20 WBC RBC Hgb 10.8 L Hct 32.1 L MCV MCH MCHC RDW Plt Count MPV Gran % Lymph % (Auto) [place] % (Auto) Eos % (Auto) Baso % (Auto) Gran # Lymph # (Auto) [place] # (Auto) Eos # (Auto) Baso # (Auto) Neutrophils % (Manual) Band Neutrophils % Lymphocytes % (Manual) Monocytes % (Manual) Platelet Evaluation PT 12.0 INR 1.04 APTT 31.3 pCO2 pO2 HCO3 ABG pH ABG Total CO2 ABG O2 Saturation ABG O2 Content ABG Base Excess ABG Hemoglobin ABG Carboxyhemoglobin POC ABG HHb (Measured) ABG Methemoglobin ABG O2 Capacity Hgb O2 Saturation FiO2 Sodium Potassium Chloride Carbon Dioxide Anion Gap BUN Creatinine Est GFR ( Amer) Est GFR (Non-Af Amer) POC Glucose (mg/dL) Random Glucose Calcium Total Bilirubin AST ALT Alkaline Phosphatase Total Protein Albumin Globulin Albumin/Globulin Ratio Stool Occult Blood Blood Type O POSITIVE Antibody Screen Negative BBK History Checked No verified bt Assessment & Plan - Assessment and Plan (Free Text) Assessment: This is a 67yo male with past medical history of A.fib (was on Eliquis at home) , cardiomyopathy s/p AICD, HTN, cellulitis of LE, non-compliance, EtOH abuse, prostate ca treated with seed implant who was admitted for 1. Cardiac Arrest s/p ROSC 2. Shock (cardiogenic v. septic) on pressors and sedation 3. Ventilator dependent respiratory failure secondary to acute on chronic CHF and aspiration pneumonia 4. GI bleed 5. Seizures soon on EEG 6. YE (resolved) 7. Hx of EtOH abuse with possible cirrhosis 8. A.fib 9. CHF with AICD and pacer 10. HTN 11. chronic LE cellulitis Plan: Bright red blood mixed with stool seen on exam. Hgb is stable. Patient has multiple co-morbidities at this time. Will do conservative management at this time. Will check H/H every 6hrs. Continue IV fluids. Continue Protonix drip. Patient does have history of alcoholism with cirrhosis seen on CT of A/P. LFTs are within normal limits. Hold anticoagulation at this time. ID is on consult for sepsis. Continue phenobarbital, Keppra and Valproate. Palliative care is on consult as well as Cardiology. Discussed plan with ICU team. Case seen, discussed and reviewed with Dr. Garza. Sandy Birmingham PGY2 - Date & Time Date: 02/12/18 Time: 12:32 <Wendi Garza V - Last Filed: 02/13/18 00:11> Meds - Medications Medications: Current Medications Artificial Tears (Artificial Tears Opht Oint) 0 gm OU Q6 [facility] Last Admin: 02/12/18 18:16 Dose: Not Given Hydrocortisone Sodium Succinate (Solu-Cortef) 50 mg IVP Q8 [facility] Last Admin: 02/12/18 21:58 Dose: 50 mg Propofol (Diprivan) 1,000 mg in 100 mls @ 3 mls/hr IV .Q24H PRN; Protocol; 5 MCG/KG/MIN PRN Reason: TITRATE PER MD ORDER Last Titration: 02/12/18 16:34 Dose: 0 mcg/kg/min, 0 mls/hr NOREPINEPHRINE BIT/0.9 % NACL (Levophed 4 Mg/ 250 Ml Ns Premixed) 4 mg in 250 mls @ 15 mls/hr IV .[id number] PRN; Protocol; 4 MCG/MIN PRN Reason: TITRATE PER MD ORDER Last Admin: 02/12/18 22:56 Dose: 10 mcg/min, 37.5 mls/hr Vasopressin 20 units/ Sodium (Chloride) 101 mls @ 9.09 mls/hr IV .Q11H7M KELLY; 0.03 U/MIN PRN Reason: Protocol Last Admin: 02/11/18 17:47 Dose: 9.09 mls/hr Linezolid (Zyvox 600mg/300ml D5w) 600 mg in 300 mls @ 200 mls/hr IVPB Q12 KELLY PRN Reason: Protocol Stop: 02/18/18 10:01 Last Admin: 02/12/18 22:00 Dose: 200 mls/hr Midazolam 100 mg/100ml in NS (Midazolam 100 Mg/100ml In Ns) 100 mg in 100 mls @ 1 mls/hr IV .Q24H PRN; Protocol; 1 MG/HR PRN Reason: Agitation Last Titration: 02/12/18 14:04 Dose: 3 mg/hr, 3 mls/hr Valproate Sodium 1,000 mg/ (Sodium Chloride) 110 mls @ 100 mls/hr IVPB Q12 [facility] Last Admin: 02/12/18 21:57 Dose: 100 mls/hr Levetiracetam 1,500 mg/ Sodium (Chloride) 115 mls @ 460 mls/hr IV Q12H [facility] Last Admin: 02/12/18 18:27 Dose: 460 mls/hr Aztreonam (Azactam 1 Gm) 100 mls @ 100 mls/hr IVPB Q8 [facility] PRN Reason: Protocol Stop: 02/17/18 11:31 Last Admin: 02/12/18 21:57 Dose: 100 mls/hr Doxycycline Hyclate 100 mg/ (Sodium Chloride) 100 mls @ 100 mls/hr IVPB Q12 [facility] PRN Reason: Protocol Last Admin: 02/12/18 22:00 Dose: 100 mls/hr Dextrose/Sodium Chloride (Dextrose 5%/0.9% Ns 1000 Ml) 1,000 mls @ 50 mls/hr IV .Q20H [facility] Last Admin: 02/12/18 06:59 Dose: 50 mls/hr Pantoprazole Sodium (Protonix 40mg Ivpb) 40 mg in 100 mls @ 20 mls/hr IVPB .Q5H [facility] Last Admin: 02/12/18 22:56 Dose: 20 mls/hr Phenobarbital (Phenobarbital Inj) 50 mg IV Q6 [facility] Last Admin: 02/12/18 18:23 Dose: 50 mg Results - Vital Signs Recent Vital Signs: Last Vital Signs Temp 98.2 F 02/12/18 15:00 Pulse 70 02/12/18 16:15 Resp 18 02/12/18 00:00 BP 114/72 02/12/18 15:00 Pulse Ox 99 02/12/18 15:00 - Labs Result Diagrams: 02/12/18 19:26 02/12/18 04:50 Labs: Laboratory Results - last 24 hr 02/12/18 02/12/18 02/12/18 00:00 04:50 04:50 WBC 11.3 H RBC 3.61 Hgb 11.1 L Hct 32.6 L MCV 90.3 MCH 30.7 MCHC 34.0 RDW 18.7 H Plt Count 162 MPV 10.4 Gran % 93.6 H Lymph % (Auto) 3.6 L [place] % (Auto) 2.7 Eos % (Auto) 0.1 L Baso % (Auto) 0.0 Gran # 10.61 H Lymph # (Auto) 0.4 L [place] # (Auto) 0.3 Eos # (Auto) 0.0 Baso # (Auto) 0.00 PT INR APTT pCO2 pO2 HCO3 ABG pH ABG Total CO2 ABG O2 Saturation ABG O2 Content ABG Base Excess ABG Hemoglobin ABG Carboxyhemoglobin POC ABG HHb (Measured) ABG Methemoglobin ABG O2 Capacity Hgb O2 Saturation FiO2 Sodium 135 Potassium 3.0 L Chloride 105 Carbon Dioxide 22 Anion Gap 10 BUN 19 Creatinine 1.1 Est GFR ( Amer) > 60 Est GFR (Non-Af Amer) > 60 POC Glucose (mg/dL) 182 H Random Glucose 156 H Calcium 7.3 L Total Bilirubin 1.2 AST 28 ALT 31 Alkaline Phosphatase 97 Ammonia Total Protein 4.3 L Albumin 2.0 L Globulin 2.3 Albumin/Globulin Ratio 0.9 L Stool Occult Blood Blood Type Blood Type Confirm Antibody Screen BBK History Checked 02/12/18 02/12/18 02/12/18 05:10 06:18 06:40 WBC RBC Hgb Hct MCV MCH MCHC RDW Plt Count MPV Gran % Lymph % (Auto) [place] % (Auto) Eos % (Auto) Baso % (Auto) Gran # Lymph # (Auto) [place] # (Auto) Eos # (Auto) Baso # (Auto) PT INR APTT pCO2 25 L pO2 158.0 H HCO3 18.6 L ABG pH 7.48 H ABG Total CO2 19.4 L ABG O2 Saturation 99.4 H ABG O2 Content 13.7 L ABG Base Excess -3.9 L ABG Hemoglobin 9.8 L ABG Carboxyhemoglobin 1.6 H POC ABG HHb (Measured) 0.6 ABG Methemoglobin 0.8 ABG O2 Capacity 13.8 L Hgb O2 Saturation 97.0 FiO2 40.0 Sodium Potassium Chloride Carbon Dioxide Anion Gap BUN Creatinine Est GFR ( Amer) Est GFR (Non-Af Amer) POC Glucose (mg/dL) 119 H Random Glucose Calcium Total Bilirubin AST ALT Alkaline Phosphatase Ammonia Total Protein Albumin Globulin Albumin/Globulin Ratio Stool Occult Blood Positive H Blood Type Blood Type Confirm Antibody Screen BBK History Checked 02/12/18 02/12/18 02/12/18 08:00 11:20 11:20 WBC RBC Hgb 10.8 L Hct 32.1 L MCV MCH MCHC RDW Plt Count MPV Gran % Lymph % (Auto) [place] % (Auto) Eos % (Auto) Baso % (Auto) Gran # Lymph # (Auto) [place] # (Auto) Eos # (Auto) Baso # (Auto) PT INR APTT pCO2 pO2 HCO3 ABG pH ABG Total CO2 ABG O2 Saturation ABG O2 Content ABG Base Excess ABG Hemoglobin ABG Carboxyhemoglobin POC ABG HHb (Measured) ABG Methemoglobin ABG O2 Capacity Hgb O2 Saturation FiO2 Sodium Potassium Chloride Carbon Dioxide Anion Gap BUN Creatinine Est GFR ( Amer) Est GFR (Non-Af Amer) POC Glucose (mg/dL) Random Glucose Calcium Total Bilirubin AST ALT Alkaline Phosphatase Ammonia Total Protein Albumin Globulin Albumin/Globulin Ratio Stool Occult Blood Blood Type O POSITIVE Blood Type Confirm O POSITIVE Antibody Screen Negative BBK History Checked No verified bt 02/12/18 02/12/18 02/12/18 11:20 11:30 14:10 WBC RBC Hgb 10.7 L Hct 32.2 L MCV MCH MCHC RDW Plt Count MPV Gran % Lymph % (Auto) [place] % (Auto) Eos % (Auto) Baso % (Auto) Gran # Lymph # (Auto) [place] # (Auto) Eos # (Auto) Baso # (Auto) PT 12.0 INR 1.04 APTT 31.3 pCO2 pO2 HCO3 ABG pH ABG Total CO2 ABG O2 Saturation ABG O2 Content ABG Base Excess ABG Hemoglobin ABG Carboxyhemoglobin POC ABG HHb (Measured) ABG Methemoglobin ABG O2 Capacity Hgb O2 Saturation FiO2 Sodium Potassium Chloride Carbon Dioxide Anion Gap BUN Creatinine Est GFR ( Amer) Est GFR (Non-Af Amer) POC Glucose (mg/dL) 128 H Random Glucose Calcium Total Bilirubin AST ALT Alkaline Phosphatase Ammonia Total Protein Albumin Globulin Albumin/Globulin Ratio Stool Occult Blood Blood Type Blood Type Confirm Antibody Screen BBK History Checked 02/12/18 02/12/18 02/12/18 17:52 19:26 19:26 WBC RBC Hgb 10.9 L Hct 32.3 L MCV MCH MCHC RDW Plt Count MPV Gran % Lymph % (Auto) [place] % (Auto) Eos % (Auto) Baso % (Auto) Gran # Lymph # (Auto) [place] # (Auto) Eos # (Auto) Baso # (Auto) PT INR APTT pCO2 pO2 HCO3 ABG pH ABG Total CO2 ABG O2 Saturation ABG O2 Content ABG Base Excess ABG Hemoglobin ABG Carboxyhemoglobin POC ABG HHb (Measured) ABG Methemoglobin ABG O2 Capacity Hgb O2 Saturation FiO2 Sodium Potassium Chloride Carbon Dioxide Anion Gap BUN Creatinine Est GFR ( Amer) Est GFR (Non-Af Amer) POC Glucose (mg/dL) 100 Random Glucose Calcium Total Bilirubin AST ALT Alkaline Phosphatase Ammonia 11 Total Protein Albumin Globulin Albumin/Globulin Ratio Stool Occult Blood Blood Type Blood Type Confirm Antibody Screen BBK History Checked Attending/Attestation - Attestation I have personally seen and examined this patient.: Yes I have fully participated in the care of the patient.: Yes I have reviewed all pertinent clinical information: Yes Notes (Text): This is an addendum to GI consultation report dictated by the [employer]nament[employer] Supervisor.The patient was seen and examined earlier. Medical records, lab studies, imagings were reviewed. Last 24 hours events reviewed. Agreed with the above treatment plan as outlined in Ornament[employer] Supervisor 's notes the with the addition of the following discussed with the ICU sta multiple comorbidities Anoxic encephalopathy Limited bleeding per rectum clinically more suggestive of LGIB recommended conservative management. Follow hemoglobin and transfuse as needed and continue PPI Overall prognosis remains poor 02/13/18 00:01
--- NOTE | 2018-02-12 12:19 | PN ---
DATE: 02/12/2018 SUBJECTIVE: The patient is seen lying in bed in the CCU. He remains intubated. He remains on low-dose propofol and midazolam infusions. Neurologically, he has shown no improvement. CURRENT MEDICATIONS: Include Azactam, IV fluids, Diprivan infusion, doxycycline, Keppra, Levophed at 10 mcg per minute, midazolam infusion, phenobarbital, Protonix, Solu-Cortef, valproate and Zyvox. OBJECTIVE: GENERAL: He is a middle-aged man who is comatose. VITAL SIGNS: His blood pressure is 120/80 with pulse 70 with ventricular pacing, respirations are 14. He is currently afebrile. HEENT: Orally intubated. NECK: No JVD. CHEST: Bilateral scattered rhonchi. HEART: PMI displaced laterally with soft tones noted. ABDOMEN: Soft. Bowel sounds are present. EXTREMITIES: Chronic stasis changes with 1+ leg edema. DIAGNOSTIC DATA: Potassium 3 and has been replaced. BUN and creatinine are 19 and 1.1. White count is 11.3, hemoglobin and hematocrit 11.1 and 32.6 with platelet count of 162,000. Recent blood gas showed pH 7.48, pCO2 of 25, pO2 of 158. Stool for occult blood is positive. IMPRESSION: 1. Status post out of hospital arrest with apparent prolonged downtime. 2. Profound anoxic encephalopathy. 3. Apparent seizures. 4. Severe congestive cardiomyopathy. 5. Chronic congestive heart failure. 6. Bilateral lower leg cellulitis with nonhealing ulcers. 7. Longstanding history of alcoholism. RECOMMENDATIONS: Supportive care is advised at this time. A DNR/DNI order is in place. Discussions are being had with the family regarding the level of aggressiveness with respect to care. His overall prognosis appears extremely grim and comfort measures should be employed at this time. We will continue to follow and make further recommendations as appropriate. Williams Moser MD
--- NOTE | 2018-02-12 12:22 | CP.PCM.PN ---
Subjective - Date & Time of Evaluation Date of Evaluation: 02/12/18 Time of Evaluation: 12:19 - Subjective Subjective: Mr. Rajput was seen nad examined at the bedside in ICU. He remains on mechanical ventilator. with no corneal reflex, non-reactive pupils, no gag reflex, GCS-3T. He had a rhythmic twitching of the bilateral eyelids post stimulation. All sedation is off, patient is on pentobarbital. patient is a DNR / DNI.There was no untoward events overnight. Objective - Vital Signs/Intake and Output Vital Signs (last 24 hours): Temp Pulse Resp BP Pulse Ox 95.7 F L 70 18 128/84 100 02/12/18 11:00 02/12/18 11:00 02/12/18 00:00 02/12/18 11:00 02/12/18 11:00 Intake and Output: 02/12/18 02/12/18 06:59 18:59 Intake Total 3232 431.9 Output Total 575 Balance 2657 431.9 - Medications Medications: Current Medications Artificial Tears (Artificial Tears Opht Oint) 0 gm OU Q6 KELLY Last Admin: 02/12/18 06:59 Dose: Not Given Hydrocortisone Sodium Succinate (Solu-Cortef) 50 mg IVP Q8 KELLY Last Admin: 02/12/18 06:01 Dose: 50 mg Propofol (Diprivan) 1,000 mg in 100 mls @ 3 mls/hr IV .Q24H PRN; Protocol; 5 MCG/KG/MIN PRN Reason: TITRATE PER MD ORDER Last Titration: 02/12/18 11:58 Dose: 0 mcg/kg/min, 0 mls/hr NOREPINEPHRINE BIT/0.9 % NACL (Levophed 4 Mg/ 250 Ml Ns Premixed) 4 mg in 250 mls @ 15 mls/hr IV .[id number] PRN; Protocol; 4 MCG/MIN PRN Reason: TITRATE PER MD ORDER Last Admin: 02/12/18 08:22 Dose: 20 mcg/min, 75 mls/hr Vasopressin 20 units/ Sodium (Chloride) 101 mls @ 9.09 mls/hr IV .Q11H7M KELLY; 0.03 U/MIN PRN Reason: Protocol Last Admin: 02/11/18 17:47 Dose: 9.09 mls/hr Linezolid (Zyvox 600mg/300ml D5w) 600 mg in 300 mls @ 200 mls/hr IVPB Q12 KELLY PRN Reason: Protocol Stop: 02/18/18 10:01 Last Admin: 02/12/18 09:37 Dose: 200 mls/hr Midazolam 100 mg/100ml in NS (Midazolam 100 Mg/100ml In Ns) 100 mg in 100 mls @ 1 mls/hr IV .Q24H PRN; Protocol; 1 MG/HR PRN Reason: Agitation Last Titration: 02/12/18 11:56 Dose: 0 mg/hr, 0 mls/hr Valproate Sodium 1,000 mg/ (Sodium Chloride) 110 mls @ 100 mls/hr IVPB Q12 [facility] Last Admin: 02/12/18 09:38 Dose: 100 mls/hr Levetiracetam 1,500 mg/ Sodium (Chloride) 115 mls @ 460 mls/hr IV Q12H [facility] Last Admin: 02/12/18 06:56 Dose: 460 mls/hr Aztreonam (Azactam 1 Gm) 100 mls @ 100 mls/hr IVPB Q8 KELLY PRN Reason: Protocol Stop: 02/17/18 11:31 Last Admin: 02/12/18 06:00 Dose: 100 mls/hr Doxycycline Hyclate 100 mg/ (Sodium Chloride) 100 mls @ 100 mls/hr IVPB Q12 KELLY PRN Reason: Protocol Last Admin: 02/12/18 09:37 Dose: 100 mls/hr Dextrose/Sodium Chloride (Dextrose 5%/0.9% Ns 1000 Ml) 1,000 mls @ 50 mls/hr IV .Q20H [facility] Last Admin: 02/12/18 06:59 Dose: 50 mls/hr Pantoprazole Sodium (Protonix 40mg Ivpb) 40 mg in 100 mls @ 20 mls/hr IVPB .Q5H [facility] Last Admin: 02/12/18 08:24 Dose: 20 mls/hr Potassium Chloride (Potassium Chloride 20 Meq/100 Ml) 20 meq in 100 mls @ 50 mls/hr IVPB Q2H [facility] Stop: 02/12/18 13:29 Last Admin: 02/12/18 11:56 Dose: Not Given Phenobarbital (Phenobarbital Inj) 50 mg IV Q6 KELLY Last Admin: 02/12/18 06:01 Dose: 50 mg - Labs Labs: 02/12/18 11:20 02/12/18 04:50 PT 12.0 SECONDS (9.4-12.5) 02/12/18 11:20 INR 1.04 (0.93-1.08) 02/12/18 11:20 APTT 31.3 Seconds (25.1-36.5) 02/12/18 11:20 - Constitutional Appears: No Acute Distress - Head Exam Head Exam: NORMAL INSPECTION - Eye Exam Pupil Exam: Fixed, Miosis Additional comments: 2 mm - Neurological Exam Neuro motor strength exam: Left Upper Extremity: 0, Right Upper Extremity: 0, Left Lower Extremity: 0, Right Lower Extremity: 0 Additional comments: GCS- 3T Assessment and Plan (1) Anoxic brain injury Assessment & Plan: Case discussed with DR. Airas, continue all current medical regimen including AED. Pending repeat EEG post sedation hold. Status: Acute
[2018-02-12 15:07] LABS: HEMOGLOBIN 10.7 g/dL (14.0-18.0)
[2018-02-12 19:35] LABS: HEMOGLOBIN 10.9 g/dL (14.0-18.0)
[2018-02-13] MEDS: Pantoprazole 40mg/100mL NS 40 MG/100 ML BAG IVPB SCH ×3 (05:41→23:45)
[2018-02-13] MEDS: PHENobarbital 130 mg/ml Inj Syringe IV SCH ×2 (05:41→19:56)
[2018-02-13] MEDS: Aztreonam 1 Gm in NS 100mL 100 ML IVPB SCH ×3 (05:57→22:18)
[2018-02-13] MEDS: Dextrose 5%/0.9% NS 1,000 ML IV SCH ×2 (05:57→22:20)
[2018-02-13] MEDS: Mineral Oil/Petrolatum Opht Oint(3.5 gm) OU SCH (05:57)
[2018-02-13 07:14] LABS: GRAN # 6.09 (1.4-6.5); GRAN % 88.1 % (50.0-68.0); HEMOGLOBIN 10.2 g/dL (14.0-18.0); LYMPH # 0.6 (1.2-3.4); MEAN CORPUSCULAR HEMOGLOBIN 30.4 pg (25.0-35.0); MEAN CORPUSCULAR HGB CONC 33.4 g/dl (31.0-37.0); MEAN PLATELET VOLUME 9.4 fl (7.0-11.0); MONO # 0.3 (0.1-0.6); MONO % 3.9 % (1.0-6.0); RBC 3.35 10^6/uL (3.5-6.1); RED CELL DISTRIBUTION WIDTH 19.1 % (11.5-14.5); WHITE BLOOD COUNT 6.9 10^3/ul (4.5-11.0)
[2018-02-13 07:53] LABS: ALB/GLOB RATIO 0.8 (1.1-1.8); ALBUMIN 1.8 g/dL (3.0-4.8); ALT/SGPT 30 U/L (7-56); AST/SGOT 28 U/L (17-59); BLOOD UREA NITROGEN 19 mg/dL (7-21); CALCIUM 7.3 mg/dL (8.4-10.5); GFR AFRICAN-AMERICAN > 60; GFR NON-AFRICAN AMERICAN > 60
--- NOTE | 2018-02-13 08:16 | RAD ---
HISTORY: intubated COMPARISON: Portable chest 02/12/2018. FINDINGS: LUNGS: Endotracheal and nasogastric tubes do not appear significantly changed in position with right central venous line and permanent pacemaker/AICD again evident appearing stable as well. CHF pattern persists with right suprahilar patchy density unchanged in small left pleural effusion evident. No definite right pleural effusion. No pneumothorax bilaterally. Cardiomegaly appears stable. OSSEOUS STRUCTURES: No significant abnormalities. VISUALIZED UPPER ABDOMEN: Normal. OTHER FINDINGS: None. IMPRESSION: Stable CHF, limited patchy density right apex medially. Small left pleural effusion unchanged.
--- NOTE | 2018-02-13 08:22 | PN ---
DATE: 02/12/2018 SUBJECTIVE: The patient is 67 years old, seen and examined, remained unresponsive, sedated, had episode of rectal bleeding. He is on PEG feeding. OBJECTIVE: VITAL SIGNS: He is afebrile, he is hypothermic with temperature of 95.7, pulse 70, respirations 18, and blood pressure . LUNGS: Bilateral poor respiratory effort with soft crackles. HEART: S1 and S2 audible. ABDOMEN: Soft, obese, and nontender. No rebound. NEUROLOGIC: He is unresponsive. EXTREMITIES: Bilateral legs, +3 edema. Right knee has slight erythema, ooze from his abrasion wound. LABORATORY EXAM: WBC is 11.3, hemoglobin 11, hematocrit 32.6, and platelets 162. PT 12 and INR 1.04. Chemistry: Sodium 135, potassium 3, chloride 105, CO2 of 22. BUN 19, creatinine 1.1. Blood sugar of 119. Stool for Hemoccult is positive. ASSESSMENT: 1. Status post cardiac arrest. 2. Anoxic encephalopathy. 3. Seizure. 4. Respiratory failure. 5. Right knee contusion and abrasion. 6. Seizure disorder. 7. Gastrointestinal bleed, probably stress ulcer. Prognosis is very guarded and poor. The patient is currently on IV fluids, Azactam, and doxycycline. He is on Keppra. He is still on levodopa, Zyvox. PLAN: We will continue the patient on current medications. Prognosis is poor . Dr. Garza has been consulted for GI . Clif Lala MD
[2018-02-13 08:34] LABS: ARTERIAL BLOOD GAS HEMOGLOBIN 10.8 g/dL (11.7-17.4); ARTERIAL BLOOD GAS O2 CAPACITY 15.1 mL/dl (16-24); ARTERIAL BLOOD GAS O2 SAT 99.5 % (95-98); ARTERIAL BLOOD GAS PCO2 24 mm/Hg (35-45); ARTERIAL BLOOD GAS PH 7.55 (7.35-7.45); ARTERIAL BLOOD GAS TCO2 21.7 mmol.L (22-28)
--- NOTE | 2018-02-13 08:38 | CP.PCM.PN ---
Subjective - Date & Time of Evaluation Date of Evaluation: 02/13/18 Time of Evaluation: 07:00 - Subjective Subjective: Stable in ICU. Chart reviewed. On propofol. No improvement in neuro status last 48 hrs. V/S noted. V. Paced. PE: Lungs: rhonchi Cor: S1S2 Abd.: soft Ext.: + edema and discoloration Neuro.: sedated I/O= 2929/3000 recorded Labs and ABGs noted: H/H 10, K+= 3.4 BC X2 NG at 5 days CXR noted: mild CHF, RIL infiltrate, small left pl. effusion Objective - Vital Signs/Intake and Output Vital Signs (last 24 hours): Temp Pulse Resp BP Pulse Ox 98.2 F 70 18 114/72 99 02/12/18 15:00 02/12/18 22:00 02/12/18 00:00 02/12/18 15:00 02/12/18 15:00 Intake and Output: 02/13/18 02/13/18 06:59 18:59 Intake Total 2245 Output Total 1500 Balance 745 - Medications Medications: Current Medications Artificial Tears (Artificial Tears Opht Oint) 0 gm OU Q6 KELLY Last Admin: 02/13/18 05:57 Dose: Not Given Hydrocortisone Sodium Succinate (Solu-Cortef) 50 mg IVP Q8 KELLY Last Admin: 02/13/18 05:58 Dose: 50 mg Propofol (Diprivan) 1,000 mg in 100 mls @ 3 mls/hr IV .Q24H PRN; Protocol; 5 MCG/KG/MIN PRN Reason: TITRATE PER MD ORDER Last Titration: 02/12/18 16:34 Dose: 0 mcg/kg/min, 0 mls/hr NOREPINEPHRINE BIT/0.9 % NACL (Levophed 4 Mg/ 250 Ml Ns Premixed) 4 mg in 250 mls @ 15 mls/hr IV .[id number] PRN; Protocol; 4 MCG/MIN PRN Reason: TITRATE PER MD ORDER Last Titration: 02/13/18 05:40 Dose: 5 mcg/min, 18.75 mls/hr Vasopressin 20 units/ Sodium (Chloride) 101 mls @ 9.09 mls/hr IV .Q11H7M KELLY; 0.03 U/MIN PRN Reason: Protocol Last Admin: 02/13/18 05:58 Dose: Not Given Linezolid (Zyvox 600mg/300ml D5w) 600 mg in 300 mls @ 200 mls/hr IVPB Q12 KELLY PRN Reason: Protocol Stop: 02/18/18 10:01 Last Admin: 02/12/18 22:00 Dose: 200 mls/hr Midazolam 100 mg/100ml in NS (Midazolam 100 Mg/100ml In Ns) 100 mg in 100 mls @ 1 mls/hr IV .Q24H PRN; Protocol; 1 MG/HR PRN Reason: Agitation Last Titration: 02/12/18 14:04 Dose: 3 mg/hr, 3 mls/hr Levetiracetam 1,500 mg/ Sodium (Chloride) 115 mls @ 460 mls/hr IV Q12H KELLY Last Admin: 02/12/18 18:27 Dose: 460 mls/hr Aztreonam (Azactam 1 Gm) 100 mls @ 100 mls/hr IVPB Q8 KELLY PRN Reason: Protocol Stop: 02/17/18 11:31 Last Admin: 02/13/18 05:57 Dose: 100 mls/hr Doxycycline Hyclate 100 mg/ (Sodium Chloride) 100 mls @ 100 mls/hr IVPB Q12 KELLY PRN Reason: Protocol Last Admin: 02/12/18 22:00 Dose: 100 mls/hr Dextrose/Sodium Chloride (Dextrose 5%/0.9% Ns 1000 Ml) 1,000 mls @ 50 mls/hr IV .Q20H [facility] Last Admin: 02/13/18 05:57 Dose: 50 mls/hr Pantoprazole Sodium (Protonix 40mg Ivpb) 40 mg in 100 mls @ 20 mls/hr IVPB .Q5H [facility] Last Admin: 02/13/18 05:41 Dose: 20 mls/hr Phenytoin 200 mg/ Sodium (Chloride) 54 mls @ 104 mls/hr IVPB Q12 KELLY Valproate Sodium 1,500 mg/ (Sodium Chloride) 115 mls @ 92 mls/hr IVPB Q12 KELLY Phenobarbital (Phenobarbital Inj) 50 mg IV Q6 [facility] Last Admin: 02/13/18 05:41 Dose: Not Given - Labs Labs: 02/13/18 07:00 02/13/18 07:00 PT 12.0 SECONDS (9.4-12.5) 02/12/18 11:20 INR 1.04 (0.93-1.08) 02/12/18 11:20 APTT 31.3 Seconds (25.1-36.5) 02/12/18 11:20 Assessment and Plan - Assessment and Plan (Free Text) Assessment: S/P cardiac arrest at home with prolonged down time Anoxic encephalopathy Acute on chronic kidney disease CCM, severe, etoh related Chronic CHF Bilat. LE cellulitis and non-healing wound LLE ICD/NSVT Prostate cancer, seed implants Right TKR Chronic ETOH, recently stopped 12/25 Former Smoker Plan: Continue support. DNR/DNI noted As per Neuro., Intensivists, Dr. Mccormack, Palliative Care, ID Replace K+ Monitor: labs, I/O, sats., neuro status, etc. Will follow Poor prognosis for neuro recovery noted.
[2018-02-13] MEDS: Valproate 1,500 MG in Sodium Chloride 0.9% 100 ML IVPB SCH ×2 (10:45→22:19)
[2018-02-13] MEDS: Potassium Chloride 20 mEq 100 ML IV SCH ×3 (10:55→19:48)
[2018-02-13] MEDS: Linezolid 600 mg in D5W 300 ml 600 MG/300 ML BAG IVPB SCH ×2 (11:00→22:25)
--- NOTE | 2018-02-13 11:16 | CP.PCM.PN ---
Subjective - Date & Time of Evaluation Date of Evaluation: 02/13/18 Time of Evaluation: 08:00 - Subjective Subjective: GI Progress Note for Sandy Barba PGY2 Patient seen and examined at bedside. There were no acute overnight events as per nursing staff. Patient is intubated. ROS could not be obtained. Objective - Vital Signs/Intake and Output Vital Signs (last 24 hours): Temp Pulse Resp BP Pulse Ox 98.2 F 70 18 114/72 99 02/12/18 15:00 02/12/18 22:00 02/12/18 00:00 02/12/18 15:00 02/12/18 15:00 Intake and Output: 02/13/18 02/13/18 06:59 18:59 Intake Total 2245 Output Total 1500 Balance 745 - Medications Medications: Current Medications Artificial Tears (Artificial Tears Opht Oint) 0 gm OU Q6 KELLY Last Admin: 02/13/18 05:57 Dose: Not Given Hydrocortisone Sodium Succinate (Solu-Cortef) 50 mg IVP Q8 KELLY Last Admin: 02/13/18 05:58 Dose: 50 mg Propofol (Diprivan) 1,000 mg in 100 mls @ 3 mls/hr IV .Q24H PRN; Protocol; 5 MCG/KG/MIN PRN Reason: TITRATE PER MD ORDER Last Titration: 02/12/18 16:34 Dose: 0 mcg/kg/min, 0 mls/hr NOREPINEPHRINE BIT/0.9 % NACL (Levophed 4 Mg/ 250 Ml Ns Premixed) 4 mg in 250 mls @ 15 mls/hr IV .[id number] PRN; Protocol; 4 MCG/MIN PRN Reason: TITRATE PER MD ORDER Last Titration: 02/13/18 05:40 Dose: 5 mcg/min, 18.75 mls/hr Vasopressin 20 units/ Sodium (Chloride) 101 mls @ 9.09 mls/hr IV .Q11H7M KELLY; 0.03 U/MIN PRN Reason: Protocol Last Admin: 02/13/18 05:58 Dose: Not Given Linezolid (Zyvox 600mg/300ml D5w) 600 mg in 300 mls @ 200 mls/hr IVPB Q12 KELLY PRN Reason: Protocol Stop: 02/18/18 10:01 Last Admin: 02/12/18 22:00 Dose: 200 mls/hr Midazolam 100 mg/100ml in NS (Midazolam 100 Mg/100ml In Ns) 100 mg in 100 mls @ 1 mls/hr IV .Q24H PRN; Protocol; 1 MG/HR PRN Reason: Agitation Last Titration: 02/12/18 14:04 Dose: 3 mg/hr, 3 mls/hr Levetiracetam 1,500 mg/ Sodium (Chloride) 115 mls @ 460 mls/hr IV Q12H [facility] Last Admin: 02/12/18 18:27 Dose: 460 mls/hr Aztreonam (Azactam 1 Gm) 100 mls @ 100 mls/hr IVPB Q8 KELLY PRN Reason: Protocol Stop: 02/17/18 11:31 Last Admin: 02/13/18 05:57 Dose: 100 mls/hr Doxycycline Hyclate 100 mg/ (Sodium Chloride) 100 mls @ 100 mls/hr IVPB Q12 KELLY PRN Reason: Protocol Last Admin: 02/12/18 22:00 Dose: 100 mls/hr Dextrose/Sodium Chloride (Dextrose 5%/0.9% Ns 1000 Ml) 1,000 mls @ 50 mls/hr IV .Q20H [facility] Last Admin: 02/13/18 05:57 Dose: 50 mls/hr Pantoprazole Sodium (Protonix 40mg Ivpb) 40 mg in 100 mls @ 20 mls/hr IVPB .Q5H [facility] Last Admin: 02/13/18 05:41 Dose: 20 mls/hr Phenytoin 200 mg/ Sodium (Chloride) 54 mls @ 104 mls/hr IVPB Q12 KELLY Valproate Sodium 1,500 mg/ (Sodium Chloride) 115 mls @ 92 mls/hr IVPB Q12 KELLY Potassium Chloride (Potassium Chloride 20 Meq/100 Ml) 100 mls @ 50 mls/hr IV Q2H [facility] Stop: 02/13/18 12:44 Phenobarbital (Phenobarbital Inj) 50 mg IV Q6 [facility] Last Admin: 02/13/18 05:41 Dose: Not Given - Labs Labs: 02/13/18 07:00 02/13/18 07:00 PT 12.0 SECONDS (9.4-12.5) 02/12/18 11:20 INR 1.04 (0.93-1.08) 02/12/18 11:20 APTT 31.3 Seconds (25.1-36.5) 02/12/18 11:20 - Constitutional Appears: Chronically Ill - Head Exam Head Exam: ATRAUMATIC, NORMAL INSPECTION, NORMOCEPHALIC - ENT Exam ENT Exam: Mucous Membranes Moist - Respiratory Exam Respiratory Exam: Rhonchi, NORMAL BREATHING PATTERN. absent: Rales, Wheezes - Cardiovascular Exam Cardiovascular Exam: REGULAR RHYTHM, +S1, +S2. absent: Gallop, Rubs, Murmur - GI/Abdominal Exam GI & Abdominal Exam: Soft, Normal Bowel Sounds. absent: Rigid, Tenderness, Mass , Rebound - Extremities Exam Extremities Exam: Pedal Edema Additional comments: L LE wound on riggins. Clean and dry. - Skin Skin Exam: Dry, Warm Assessment and Plan - Assessment and Plan (Free Text) Assessment: This is a 67yo male with past medical history of A.fib (was on Eliquis at home) , cardiomyopathy s/p AICD, HTN, cellulitis of LE, non-compliance, EtOH abuse, prostate ca treated with seed implant who was admitted for 1. Cardiac Arrest s/p ROSC 2. Shock (cardiogenic v. septic) on pressors and sedation 3. Ventilator dependent respiratory failure secondary to acute on chronic CHF and aspiration pneumonia 4. Anoxic encephalopathy 5. GI bleed - limited and most likely lower GI bleed. 6. Seizures soon on EEG 7. YE (resolved) 8. Hx of EtOH abuse with possible cirrhosis 9. A.fib 10. CHF with AICD and pacer 11. HTN 12. Chronic LE cellulitis Plan: Hgb stable. Continue conservative management. Will continue IV fluids and Protonix drip. Ammonia is stable. Would hold anticoagulation at this time. ID is on consult as well as Neuro and cardiology. Palliative care on consult. Can re-start feeding today and monitor BMs. Discussed plan with ICU team. Case seen, discussed and reviewed with Dr. Garza. Sandy [place] PGY2 - Date & Time
--- NOTE | 2018-02-13 11:41 | CP.PCM.PN ---
Subjective - Date & Time of Evaluation Date of Evaluation: 02/13/18 Time of Evaluation: 11:41 - Subjective Subjective: Mr. Rajput was seen nad examined at the bedside in ICU. He remains on mechanical ventilator PRVC mode, not breathing over the set vent. settings.. with no corneal reflex, non-reactive pupils, no gag reflex, GCS-3T. Currently receiving propofol and midazolam for sedation and a vasopressor for blood pressure support. Bilateral upper extremities swollen.Preliminary result of EEG ( verbal read by neurologist), showed post ictal seizures ( On AED therapies) .There was no untoward events overnight. Objective - Vital Signs/Intake and Output Vital Signs (last 24 hours): Temp Pulse Resp BP Pulse Ox 98.2 F 70 18 114/72 99 02/12/18 15:00 02/12/18 22:00 02/12/18 00:00 02/12/18 15:00 02/12/18 15:00 Intake and Output: 02/13/18 02/13/18 06:59 18:59 Intake Total 2245 Output Total 1500 Balance 745 - Medications Medications: Current Medications Artificial Tears (Artificial Tears Opht Oint) 0 gm OU Q6 KELLY Last Admin: 02/13/18 05:57 Dose: Not Given Hydrocortisone Sodium Succinate (Solu-Cortef) 50 mg IVP Q8 KELLY Last Admin: 02/13/18 05:58 Dose: 50 mg Propofol (Diprivan) 1,000 mg in 100 mls @ 3 mls/hr IV .Q24H PRN; Protocol; 5 MCG/KG/MIN PRN Reason: TITRATE PER MD ORDER Last Titration: 02/12/18 16:34 Dose: 0 mcg/kg/min, 0 mls/hr NOREPINEPHRINE BIT/0.9 % NACL (Levophed 4 Mg/ 250 Ml Ns Premixed) 4 mg in 250 mls @ 15 mls/hr IV .[id number] PRN; Protocol; 4 MCG/MIN PRN Reason: TITRATE PER MD ORDER Last Titration: 02/13/18 05:40 Dose: 5 mcg/min, 18.75 mls/hr Vasopressin 20 units/ Sodium (Chloride) 101 mls @ 9.09 mls/hr IV .Q11H7M KELLY; 0.03 U/MIN PRN Reason: Protocol Last Admin: 02/13/18 05:58 Dose: Not Given Linezolid (Zyvox 600mg/300ml D5w) 600 mg in 300 mls @ 200 mls/hr IVPB Q12 KELLY PRN Reason: Protocol Stop: 02/18/18 10:01 Last Admin: 02/12/18 22:00 Dose: 200 mls/hr Midazolam 100 mg/100ml in NS (Midazolam 100 Mg/100ml In Ns) 100 mg in 100 mls @ 1 mls/hr IV .Q24H PRN; Protocol; 1 MG/HR PRN Reason: Agitation Last Titration: 02/12/18 14:04 Dose: 3 mg/hr, 3 mls/hr Levetiracetam 1,500 mg/ Sodium (Chloride) 115 mls @ 460 mls/hr IV Q12H [facility] Last Admin: 02/12/18 18:27 Dose: 460 mls/hr Aztreonam (Azactam 1 Gm) 100 mls @ 100 mls/hr IVPB Q8 KELLY PRN Reason: Protocol Stop: 02/17/18 11:31 Last Admin: 02/13/18 05:57 Dose: 100 mls/hr Doxycycline Hyclate 100 mg/ (Sodium Chloride) 100 mls @ 100 mls/hr IVPB Q12 KELLY PRN Reason: Protocol Last Admin: 02/12/18 22:00 Dose: 100 mls/hr Dextrose/Sodium Chloride (Dextrose 5%/0.9% Ns 1000 Ml) 1,000 mls @ 50 mls/hr IV .Q20H [facility] Last Admin: 02/13/18 05:57 Dose: 50 mls/hr Pantoprazole Sodium (Protonix 40mg Ivpb) 40 mg in 100 mls @ 20 mls/hr IVPB .Q5H [facility] Last Admin: 02/13/18 05:41 Dose: 20 mls/hr Phenytoin 200 mg/ Sodium (Chloride) 54 mls @ 104 mls/hr IVPB Q12 KELLY Valproate Sodium 1,500 mg/ (Sodium Chloride) 115 mls @ 92 mls/hr IVPB Q12 KELLY Potassium Chloride (Potassium Chloride 20 Meq/100 Ml) 100 mls @ 50 mls/hr IV Q2H [facility] Stop: 02/13/18 12:44 Phenobarbital (Phenobarbital Inj) 50 mg IV Q6 [facility] Last Admin: 02/13/18 05:41 Dose: Not Given - Labs Labs: 02/13/18 07:00 02/13/18 07:00 PT 12.0 SECONDS (9.4-12.5) 02/12/18 11:20 INR 1.04 (0.93-1.08) 02/12/18 11:20 APTT 31.3 Seconds (25.1-36.5) 02/12/18 11:20 - Constitutional Appears: No Acute Distress - Head Exam Head Exam: NORMAL INSPECTION - Eye Exam Pupil Exam: Fixed, Miosis Additional comments: 2 mm - Neurological Exam Neuro motor strength exam: Left Upper Extremity: 0, Right Upper Extremity: 0, Left Lower Extremity: 0, Right Lower Extremity: 0 Additional comments: GCS- 3T Assessment and Plan (1) Anoxic brain injury Assessment & Plan: Case discussed with Dr. Arias, continue all current medical regimen including AED and sedation. Recommend normothermic, keep head elevated at least 30 degrees, and treat any electrolyte abnormalities. Status: Acute
--- NOTE | 2018-02-13 12:04 | CP.CCUPN ---
<Mary Cervantes - Last Filed: 02/13/18 17:39> CCU Subjective - Physician Review Subjective (Free Text): 02/10/18 11:49 PGY-[address] Hill EEG done today, showed seizure. Family meeting with Dr. Hill and Dr Arias. Family agrees to DNR.DNI Started pheobarb 02/11/18 10:25 No shaking observe. No acute event overnight 02/12/18 12:35 3 large dark BM. (+) heme occult. H/H stable On phenobarb induced coma, wean off propofol and midazolam. saw seizure. will do stat eeg 02/13/18 12:02 Occasional shakes this AM. No dark BM today Last night, rhythmic twitiching b/l eyelids post CCU Objective - Vital Signs / Intake & Output Intake and Output (Last 8hrs): Intake & Output 02/12/18 02/13/18 02/13/18 22:59 06:59 14:59 Intake Total 2347.1 150 Output Total 3000 Balance -652.9 150 Intake: IV 2347.1 150 Right Internal Jugular 1845 Output: Urine 1400 Urethral (Renteria) 1400 Stool 1600 Other: # Bowel Movements 2 - Physical Exam Head: Positive for: Atraumatic, Normocephalic Pupils: Positive for: Other (fixed and dilated) Extroacular Muscles: Positive for: EOMI Conjunctiva: Positive for: Normal Mouth: Positive for: Moist Mucous Membranes Neck: Negative for: JVD Respiratory/Chest: Positive for: Good Air Exchange, Rhonchi (right base). Negative for: Respiratory Distress, Accessory Muscle Use Cardiovascular: Positive for: Regular Rate and Rhythm, Normal S1, S2. Negative for: Murmurs Abdomen: Negative for: Tenderness, Distention, Normal Bowel Sounds (hypoactive) , Peritoneal Signs, Rebound, Guarding Back: Positive for: Normal Inspection Upper Extremity: Positive for: Normal Inspection. Negative for: Cyanosis, Edema Lower Extremity: Positive for: Normal Inspection, Swelling. Negative for: Edema Neurological: Positive for: CN II-XII Intact, Other (intubated, no w/d to pain , no gag reflex) Skin: Positive for: Warm, Dry, Normal Color. Negative for: Rashes Psychiatric: Positive for: Other (sedated) - Medications Active Medications: Active Medications Generic Name Dose Route Start Last Admin Trade Name Freq PRN Reason Stop Dose Admin Artificial Tears 0 gm 02/08/18 18:30 02/13/18 05:57 Artificial Tears Opht Oint OU Not Given Q6 KELLY Hydrocortisone Sodium Succinate 50 mg 02/11/18 14:00 02/13/18 05:58 Solu-Cortef IVP 50 mg Q8 KELLY Administration Propofol 1,000 mg in 100 mls @ 3 mls/hr 02/07/18 21:17 02/12/18 16:34 Diprivan IV 0 mcg/kg/min .Q24H PRN 0 mls/hr TITRATE PER MD ORDER Titration Protocol 5 MCG/KG/MIN NOREPINEPHRINE BIT/0.9 % NACL 4 mg in 250 mls @ 15 mls/hr 02/07/18 21:21 03/26 05:40 Levophed 4 Mg/ 250 Ml Ns Premixed IV 5 mcg/min .[id number] PRN 18.75 mls/hr TITRATE PER MD ORDER Titration Protocol 4 MCG/MIN Vasopressin 20 units/ Sodium 101 mls @ 9.09 mls/hr 02/09/18 00:00 02/13/18 05 :58 Chloride IV Not Given .[id number] KELLY Protocol 0.03 U/MIN Linezolid 600 mg in 300 mls @ 200 mls/hr 02/09/18 10:00 02/12/18 22:00 Zyvox 600mg/300ml D5w IVPB 02/18/18 10:01 200 mls/hr Q12 KELLY Administration Protocol Midazolam 100 mg/100ml in NS 100 mg in 100 mls @ 1 mls/hr 02/09/18 11:13 02/24 14:04 Midazolam 100 Mg/100ml In Ns IV 3 mg/hr .Q24H PRN 3 mls/hr Agitation Titration Protocol 1 MG/HR Levetiracetam 1,500 mg/ Sodium 115 mls @ 460 mls/hr 02/10/18 18:00 02/12/18 18:27 Chloride IV 460 mls/hr Q12H KELLY Administration Aztreonam 100 mls @ 100 mls/hr 02/10/18 11:30 02/13/18 05:57 Azactam 1 Gm IVPB 02/17/18 11:31 100 mls/hr Q8 KELLY Administration Protocol Doxycycline Hyclate 100 mg/ 100 mls @ 100 mls/hr 02/10/18 11:30 02/12/18 22: 00 Sodium Chloride IVPB 100 mls/hr Q12 KELLY Administration Protocol Dextrose/Sodium Chloride 1,000 mls @ 50 mls/hr 02/11/18 10:27 02/13/18 05:57 Dextrose 5%/0.9% Ns 1000 Ml IV 50 mls/hr .Q20H KELLY Administration Pantoprazole Sodium 40 mg in 100 mls @ 20 mls/hr 02/12/18 07:45 02/13/18 05: 41 Protonix 40mg Ivpb IVPB 20 mls/hr .Q5H KELLY Administration Phenytoin 200 mg/ Sodium 54 mls @ 104 mls/hr 02/13/18 10:00 Chloride IVPB Q12 KELLY Valproate Sodium 1,500 mg/ 115 mls @ 92 mls/hr 02/13/18 03:51 Sodium Chloride IVPB Q12 KELLY Potassium Chloride 100 mls @ 50 mls/hr 02/13/18 08:45 Potassium Chloride 20 Meq/100 Ml IV 02/13/18 12:44 Q2H KELLY Phenobarbital 50 mg 02/10/18 18:00 02/13/18 05:41 Phenobarbital Inj IV Not Given Q6 KELLY - Patient Studies Lab Studies: Microbiology Studies 02/10/18 15:00 Gram Stain - Final Leg - Left Wound Culture - Final Xenia Albicans Lab Studies 02/13/18 02/13/18 02/13/18 Range/Units 11:37 08:30 07:00 WBC (4.5-11.0) 10^3/ul RBC (3.5-6.1) 10^6/uL Hgb (14.0-18.0) g/dL Hct (42.0-52.0) % MCV (80.0-105.0) fl MCH (25.0-35.0) pg MCHC (31.0-37.0) g/dl RDW (11.5-14.5) % Plt Count (120.0-450.0) 10^3/uL MPV (7.0-11.0) fl Gran % (50.0-68.0) % Lymph % (Auto) (22.0-35.0) % [place] % (Auto) (1.0-6.0) % Eos % (Auto) (1.5-5.0) % Baso % (Auto) (0.0-3.0) % Gran # (1.4-6.5) Lymph # (Auto) (1.2-3.4) [place] # (Auto) (0.1-0.6) Eos # (Auto) (0.0-0.7) Baso # (Auto) (0.0-2.0) K/mm3 pCO2 24 L (35-45) mm/Hg pO2 173.0 H (80-100) mm/Hg HCO3 21.0 (21-28) mmol/L ABG pH 7.55 H (7.35-7.45) ABG Total CO2 21.7 L (22-28) mmol.L ABG O2 Saturation 99.5 H (95-98) % ABG O2 Content 15.0 (15-23) ML/dl ABG Base Excess -0.3 (-2.0-3.0) mmol/L ABG Hemoglobin 10.8 L (11.7-17.4) g/dL ABG Carboxyhemoglobin 2.0 H (0.5-1.5) % POC ABG HHb (Measured) 0.5 (0-5) % ABG Methemoglobin 1.1 (0.0-3.0) % ABG O2 Capacity 15.1 L (16-24) mL/dl Hgb O2 Saturation 96.5 (95.0-98.0) % FiO2 40.0 % Sodium 138 (132-148) mmol/L Potassium 3.4 L (3.6-5.0) mmol/L Chloride 108 H (98-107) mmol/L Carbon Dioxide 23 (21-33) mmol/L Anion Gap 10 (10-20) BUN 19 (7-21) mg/dL Creatinine 1.0 (0.8-1.5) mg/dl Est GFR ( Amer) > 60 Est GFR (Non-Af Amer) > 60 POC Glucose (mg/dL) 109 (65-110) mg/dL Random Glucose 109 (70-110) mg/dL Calcium 7.3 L (8.4-10.5) mg/dL Total Bilirubin 1.0 (0.2-1.3) mg/dL AST 28 (17-59) U/L ALT 30 (7-56) U/L Alkaline Phosphatase 67 (38-126) U/L Ammonia (9-33) umol/L Total Protein 3.9 L (5.8-8.3) g/dL Albumin 1.8 L (3.0-4.8) g/dL Globulin 2.1 gm/dL Albumin/Globulin Ratio 0.8 L (1.1-1.8) Blood Type Confirm 02/13/18 02/13/18 02/12/18 Range/Units 07:00 05:41 23:48 WBC 6.9 D (4.5-11.0) 10^3/ul RBC 3.35 L (3.5-6.1) 10^6/uL Hgb 10.2 L (14.0-18.0) g/dL Hct 30.5 L (42.0-52.0) % MCV 91.0 (80.0-105.0) fl MCH 30.4 (25.0-35.0) pg MCHC 33.4 (31.0-37.0) g/dl RDW 19.1 H (11.5-14.5) % Plt Count 137 (120.0-450.0) 10^3/uL MPV 9.4 (7.0-11.0) fl Gran % 88.1 H (50.0-68.0) % Lymph % (Auto) 8.0 L (22.0-35.0) % [place] % (Auto) 3.9 (1.0-6.0) % Eos % (Auto) 0.0 L (1.5-5.0) % Baso % (Auto) 0.0 (0.0-3.0) % Gran # 6.09 (1.4-6.5) Lymph # (Auto) 0.6 L (1.2-3.4) [place] # (Auto) 0.3 (0.1-0.6) Eos # (Auto) 0.0 (0.0-0.7) Baso # (Auto) 0.00 (0.0-2.0) K/mm3 pCO2 (35-45) mm/Hg pO2 (80-100) mm/Hg HCO3 (21-28) mmol/L ABG pH (7.35-7.45) ABG Total CO2 (22-28) mmol.L ABG O2 Saturation (95-98) % ABG O2 Content (15-23) ML/dl ABG Base Excess (-2.0-3.0) mmol/L ABG Hemoglobin (11.7-17.4) g/dL ABG Carboxyhemoglobin (0.5-1.5) % POC ABG HHb (Measured) (0-5) % ABG Methemoglobin (0.0-3.0) % ABG O2 Capacity (16-24) mL/dl Hgb O2 Saturation (95.0-98.0) % FiO2 % Sodium (132-148) mmol/L Potassium (3.6-5.0) mmol/L Chloride (98-107) mmol/L Carbon Dioxide (21-33) mmol/L Anion Gap (10-20) BUN (7-21) mg/dL Creatinine (0.8-1.5) mg/dl Est GFR ( Amer) Est GFR (Non-Af Amer) POC Glucose (mg/dL) 103 92 (65-110) mg/dL Random Glucose (70-110) mg/dL Calcium (8.4-10.5) mg/dL Total Bilirubin (0.2-1.3) mg/dL AST (17-59) U/L ALT (7-56) U/L Alkaline Phosphatase (38-126) U/L Ammonia (9-33) umol/L Total Protein (5.8-8.3) g/dL Albumin (3.0-4.8) g/dL Globulin gm/dL Albumin/Globulin Ratio (1.1-1.8) Blood Type Confirm 02/12/18 02/12/18 02/12/18 Range/Units 19:26 19:26 17:52 WBC (4.5-11.0) 10^3/ul RBC (3.5-6.1) 10^6/uL Hgb 10.9 L (14.0-18.0) g/dL Hct 32.3 L (42.0-52.0) % MCV (80.0-105.0) fl MCH (25.0-35.0) pg MCHC (31.0-37.0) g/dl RDW (11.5-14.5) % Plt Count (120.0-450.0) 10^3/uL MPV (7.0-11.0) fl Gran % (50.0-68.0) % Lymph % (Auto) (22.0-35.0) % [place] % (Auto) (1.0-6.0) % Eos % (Auto) (1.5-5.0) % Baso % (Auto) (0.0-3.0) % Gran # (1.4-6.5) Lymph # (Auto) (1.2-3.4) [place] # (Auto) (0.1-0.6) Eos # (Auto) (0.0-0.7) Baso # (Auto) (0.0-2.0) K/mm3 pCO2 (35-45) mm/Hg pO2 (80-100) mm/Hg HCO3 (21-28) mmol/L ABG pH (7.35-7.45) ABG Total CO2 (22-28) mmol.L ABG O2 Saturation (95-98) % ABG O2 Content (15-23) ML/dl ABG Base Excess (-2.0-3.0) mmol/L ABG Hemoglobin (11.7-17.4) g/dL ABG Carboxyhemoglobin (0.5-1.5) % POC ABG HHb (Measured) (0-5) % ABG Methemoglobin (0.0-3.0) % ABG O2 Capacity (16-24) mL/dl Hgb O2 Saturation (95.0-98.0) % FiO2 % Sodium (132-148) mmol/L Potassium (3.6-5.0) mmol/L Chloride (98-107) mmol/L Carbon Dioxide (21-33) mmol/L Anion Gap (10-20) BUN (7-21) mg/dL Creatinine (0.8-1.5) mg/dl Est GFR ( Amer) Est GFR (Non-Af Amer) POC Glucose (mg/dL) 100 (65-110) mg/dL Random Glucose (70-110) mg/dL Calcium (8.4-10.5) mg/dL Total Bilirubin (0.2-1.3) mg/dL AST (17-59) U/L ALT (7-56) U/L Alkaline Phosphatase (38-126) U/L Ammonia 11 (9-33) umol/L Total Protein (5.8-8.3) g/dL Albumin (3.0-4.8) g/dL Globulin gm/dL Albumin/Globulin Ratio (1.1-1.8) Blood Type Confirm 02/12/18 02/12/18 02/12/18 Range/Units 14:10 11:30 11:20 WBC (4.5-11.0) 10^3/ul RBC (3.5-6.1) 10^6/uL Hgb 10.7 L (14.0-18.0) g/dL Hct 32.2 L (42.0-52.0) % MCV (80.0-105.0) fl MCH (25.0-35.0) pg MCHC (31.0-37.0) g/dl RDW (11.5-14.5) % Plt Count (120.0-450.0) 10^3/uL MPV (7.0-11.0) fl Gran % (50.0-68.0) % Lymph % (Auto) (22.0-35.0) % [place] % (Auto) (1.0-6.0) % Eos % (Auto) (1.5-5.0) % Baso % (Auto) (0.0-3.0) % Gran # (1.4-6.5) Lymph # (Auto) (1.2-3.4) [place] # (Auto) (0.1-0.6) Eos # (Auto) (0.0-0.7) Baso # (Auto) (0.0-2.0) K/mm3 pCO2 (35-45) mm/Hg pO2 (80-100) mm/Hg HCO3 (21-28) mmol/L ABG pH (7.35-7.45) ABG Total CO2 (22-28) mmol.L ABG O2 Saturation (95-98) % ABG O2 Content (15-23) ML/dl ABG Base Excess (-2.0-3.0) mmol/L ABG Hemoglobin (11.7-17.4) g/dL ABG Carboxyhemoglobin (0.5-1.5) % POC ABG HHb (Measured) (0-5) % ABG Methemoglobin (0.0-3.0) % ABG O2 Capacity (16-24) mL/dl Hgb O2 Saturation (95.0-98.0) % FiO2 % Sodium (132-148) mmol/L Potassium (3.6-5.0) mmol/L Chloride (98-107) mmol/L Carbon Dioxide (21-33) mmol/L Anion Gap (10-20) BUN (7-21) mg/dL Creatinine (0.8-1.5) mg/dl Est GFR ( Amer) Est GFR (Non-Af Amer) POC Glucose (mg/dL) 128 H (65-110) mg/dL Random Glucose (70-110) mg/dL Calcium (8.4-10.5) mg/dL Total Bilirubin (0.2-1.3) mg/dL AST (17-59) U/L ALT (7-56) U/L Alkaline Phosphatase (38-126) U/L Ammonia (9-33) umol/L Total Protein (5.8-8.3) g/dL Albumin (3.0-4.8) g/dL Globulin gm/dL Albumin/Globulin Ratio (1.1-1.8) Blood Type Confirm O POSITIVE Laboratory Results - last 24 hr 02/12/18 02/12/18 02/12/18 11:20 11:30 14:10 WBC RBC Hgb 10.7 L Hct 32.2 L MCV MCH MCHC RDW Plt Count MPV Gran % Lymph % (Auto) [place] % (Auto) Eos % (Auto) Baso % (Auto) Gran # Lymph # (Auto) [place] # (Auto) Eos # (Auto) Baso # (Auto) pCO2 pO2 HCO3 ABG pH ABG Total CO2 ABG O2 Saturation ABG O2 Content ABG Base Excess ABG Hemoglobin ABG Carboxyhemoglobin POC ABG HHb (Measured) ABG Methemoglobin ABG O2 Capacity Hgb O2 Saturation FiO2 Sodium Potassium Chloride Carbon Dioxide Anion Gap BUN Creatinine Est GFR ( Amer) Est GFR (Non-Af Amer) POC Glucose (mg/dL) 128 H Random Glucose Calcium Total Bilirubin AST ALT Alkaline Phosphatase Ammonia Total Protein Albumin Globulin Albumin/Globulin Ratio Blood Type Confirm O POSITIVE 02/12/18 02/12/18 02/12/18 17:52 19:26 19:26 WBC RBC Hgb 10.9 L Hct 32.3 L MCV MCH MCHC RDW Plt Count MPV Gran % Lymph % (Auto) [place] % (Auto) Eos % (Auto) Baso % (Auto) Gran # Lymph # (Auto) [place] # (Auto) Eos # (Auto) Baso # (Auto) pCO2 pO2 HCO3 ABG pH ABG Total CO2 ABG O2 Saturation ABG O2 Content ABG Base Excess ABG Hemoglobin ABG Carboxyhemoglobin POC ABG HHb (Measured) ABG Methemoglobin ABG O2 Capacity Hgb O2 Saturation FiO2 Sodium Potassium Chloride Carbon Dioxide Anion Gap BUN Creatinine Est GFR ( Amer) Est GFR (Non-Af Amer) POC Glucose (mg/dL) 100 Random Glucose Calcium Total Bilirubin AST ALT Alkaline Phosphatase Ammonia 11 Total Protein Albumin Globulin Albumin/Globulin Ratio Blood Type Confirm 02/12/18 02/13/18 02/13/18 23:48 05:41 07:00 WBC 6.9 D RBC 3.35 L Hgb 10.2 L Hct 30.5 L MCV 91.0 MCH 30.4 MCHC 33.4 RDW 19.1 H Plt Count 137 MPV 9.4 Gran % 88.1 H Lymph % (Auto) 8.0 L [place] % (Auto) 3.9 Eos % (Auto) 0.0 L Baso % (Auto) 0.0 Gran # 6.09 Lymph # (Auto) 0.6 L [place] # (Auto) 0.3 Eos # (Auto) 0.0 Baso # (Auto) 0.00 pCO2 pO2 HCO3 ABG pH ABG Total CO2 ABG O2 Saturation ABG O2 Content ABG Base Excess ABG Hemoglobin ABG Carboxyhemoglobin POC ABG HHb (Measured) ABG Methemoglobin ABG O2 Capacity Hgb O2 Saturation FiO2 Sodium Potassium Chloride Carbon Dioxide Anion Gap BUN Creatinine Est GFR ( Amer) Est GFR (Non-Af Amer) POC Glucose (mg/dL) 92 103 Random Glucose Calcium Total Bilirubin AST ALT Alkaline Phosphatase Ammonia Total Protein Albumin Globulin Albumin/Globulin Ratio Blood Type Confirm 02/13/18 02/13/18 02/13/18 07:00 08:30 11:37 WBC RBC Hgb Hct MCV MCH MCHC RDW Plt Count MPV Gran % Lymph % (Auto) [place] % (Auto) Eos % (Auto) Baso % (Auto) Gran # Lymph # (Auto) [place] # (Auto) Eos # (Auto) Baso # (Auto) pCO2 24 L pO2 173.0 H HCO3 21.0 ABG pH 7.55 H ABG Total CO2 21.7 L ABG O2 Saturation 99.5 H ABG O2 Content 15.0 ABG Base Excess -0.3 ABG Hemoglobin 10.8 L ABG Carboxyhemoglobin 2.0 H POC ABG HHb (Measured) 0.5 ABG Methemoglobin 1.1 ABG O2 Capacity 15.1 L Hgb O2 Saturation 96.5 FiO2 40.0 Sodium 138 Potassium 3.4 L Chloride 108 H Carbon Dioxide 23 Anion Gap 10 BUN 19 Creatinine 1.0 Est GFR ( Amer) > 60 Est GFR (Non-Af Amer) > 60 POC Glucose (mg/dL) 109 Random Glucose 109 Calcium 7.3 L Total Bilirubin 1.0 AST 28 ALT 30 Alkaline Phosphatase 67 Ammonia Total Protein 3.9 L Albumin 1.8 L Globulin 2.1 Albumin/Globulin Ratio 0.8 L Blood Type Confirm Fingerstick Blood Sugar Results: 182 Assessment/Plan - Assessment and Plan (Free Text) Plan: Mr Rajput, 67 M, with PMHx HTN, paroxysmal A-fib (on Eliquis), cardiomyopathy (s/p AICD), recent lower extremity cellulitis growing MRSA and pseudomonas, and ETOH abuse being admitted to the ICU s/p cardiac arrest. He had V-tach (s/p cardioversion in the field) followed by PEA arrest in the ED (s/ p treatment per ACLS protocol). Since ROSC, the patient has been unresponsive, started on hypothermia protocol, and rewarm on Saturday (02/09). He was found to have b/l pleural effusion likely pneumonia vs aspiration pneumonitis. He has cardiogenic shock vs septiv shock requiring empiric IV antibiotics and Levophed drip, on ucort day __3_. Pt was seen having seizures vs subclinical seizures, status epilepticus, started phenobarb induced coma. Today is intubated day __7___ Anoxic brain injury status post status epilepticus cardiogenic shock vs septiv shock b/l pleural effusion likely pneumonia vs aspiration pneumonitis Neuro - NEver off sedation - EEG (02/10) showed seizure. - EEG (02/12) Off sedation: Status epilepticus - EEG (02/13) With sedation: pending - Pheobarbital 15mg/kg bolus; maintain at 2mg/kg/day - Keppra 1500mg Q12 - Valproate 1500mg Q12 - Add dilantin 200mg Q12 - maintain euthermic. Bear hugger PRN for hypothermia - sedated on propofol 5. Off midazolam 3 - Q1: When to wean phenobarb? Just turned off sedation, seizure observed - Q2: When neuro can prognosticate? Pulmonary - Intubated on PRVC 550/18/5/60%, protective lung ventilation - HOB >30 - CXR: R perihilar patchy density unchanged. L pleural effusion. No R pleural effusion - Maintain O2 Sat> 92% - ABG repeat AM Cardiovascular - EKG reviewed, possibility of new ischemic changes, now s/p cardiac arrest, known CHF w/ pacemaker - AICD interrogated. No preceeding events. - BP support on levophed 20, vasopressin 0.03 - Maintain MAP >65 - D5/NS @ 50 Gastrointestinal - GI bleed observe. Transfuse as PRN. H/H q4. stable now - Tube feeding Hold - ETOH Hx with cirrhosis. small volume ascites - Protonix IV gtt Renal/Electrolytes - Monitor urine output, strict IxOs - Avoid nephrotoxins - Avoid hyperchloremia Infectious disease - Known lower extremity cellulitis, recently discharged on zyvox but did not fill due to some insurance reason and instead was on bactrim - Aztreonam, Doxycyclin Q12, Linezolid 600mg Q12 - Procalcitonin 0.14 (low) Hematologic - Hold DVT prophylaxis Endocrine - Maintain euglycemia 140-180 per NICE-SUGAR trial GI/DVT ppx: protonix; SCD Dispo plan: - DNR/DNI - Palliative on board - Neurologist and ICU doctor approached family again for transfer to facility that can do continual video monitoring for continual seizure. Patient refused again, reasoning that pt may en route. The was approached in ICU on Saturday re: transfer for continual video monitoring, she refused. s/r/d/w Dr Zhou <Lobo Zhou - Last Filed: 02/13/18 18:17> CCU Objective - Vital Signs / Intake & Output Intake and Output (Last 8hrs): Intake & Output 02/13/18 02/13/18 02/13/18 06:59 14:59 22:59 Intake Total 150 100 Balance 150 100 Intake: IV 150 100 - Medications Active Medications: Active Medications Generic Name Dose Route Start Last Admin Trade Name Freq PRN Reason Stop Dose Admin Artificial Tears 0 gm 02/08/18 18:30 02/13/18 05:57 Artificial Tears Opht Oint OU Not Given Q6 KELLY Hydrocortisone Sodium Succinate 50 mg 02/11/18 14:00 02/13/18 14:58 Solu-Cortef IVP 50 mg Q8 KELLY Administration Propofol 1,000 mg in 100 mls @ 3 mls/hr 02/07/18 21:17 02/12/18 16:34 Diprivan IV 0 mcg/kg/min .Q24H PRN 0 mls/hr TITRATE PER MD ORDER Titration Protocol 5 MCG/KG/MIN NOREPINEPHRINE BIT/0.9 % NACL 4 mg in 250 mls @ 15 mls/hr 02/07/18 21:21 03/26 14:48 Levophed 4 Mg/ 250 Ml Ns Premixed IV 5 mcg/min .[id number] PRN 18.75 mls/hr TITRATE PER MD ORDER Administration Protocol 4 MCG/MIN Vasopressin 20 units/ Sodium 101 mls @ 9.09 mls/hr 02/09/18 00:00 02/13/18 05 :58 Chloride IV Not Given .[id number] KELLY Protocol 0.03 U/MIN Linezolid 600 mg in 300 mls @ 200 mls/hr 02/09/18 10:00 02/12/18 22:00 Zyvox 600mg/300ml D5w IVPB 02/18/18 10:01 200 mls/hr Q12 KELLY Administration Protocol Midazolam 100 mg/100ml in NS 100 mg in 100 mls @ 1 mls/hr 02/09/18 11:13 02/24 14:04 Midazolam 100 Mg/100ml In Ns IV 3 mg/hr .Q24H PRN 3 mls/hr Agitation Titration Protocol 1 MG/HR Levetiracetam 1,500 mg/ Sodium 115 mls @ 460 mls/hr 02/10/18 18:00 02/12/18 18:27 Chloride IV 460 mls/hr Q12H KELLY Administration Aztreonam 100 mls @ 100 mls/hr 02/10/18 11:30 02/13/18 15:01 Azactam 1 Gm IVPB 02/17/18 11:31 100 mls/hr Q8 KELLY Administration Protocol Doxycycline Hyclate 100 mg/ 100 mls @ 100 mls/hr 02/10/18 11:30 02/12/18 22: 00 Sodium Chloride IVPB 100 mls/hr Q12 KELLY Administration Protocol Dextrose/Sodium Chloride 1,000 mls @ 50 mls/hr 02/11/18 10:27 02/13/18 05:57 Dextrose 5%/0.9% Ns 1000 Ml IV 50 mls/hr .Q20H KELLY Administration Pantoprazole Sodium 40 mg in 100 mls @ 20 mls/hr 02/12/18 07:45 02/13/18 12: 34 Protonix 40mg Ivpb IVPB 20 mls/hr .Q5H KELLY Administration Phenytoin 200 mg/ Sodium 54 mls @ 104 mls/hr 02/13/18 10:00 Chloride IVPB Q12 KELLY Valproate Sodium 1,500 mg/ 115 mls @ 92 mls/hr 02/13/18 03:51 Sodium Chloride IVPB Q12 KELLY Phenobarbital 50 mg 02/10/18 18:00 02/13/18 05:41 Phenobarbital Inj IV Not Given Q6 KELLY - Patient Studies Lab Studies: Microbiology Studies 02/10/18 15:00 Gram Stain - Final Leg - Left Wound Culture - Final Xenia Albicans Lab Studies 02/13/18 02/13/18 02/13/18 Range/Units 11:37 08:30 07:00 WBC (4.5-11.0) 10^3/ul RBC (3.5-6.1) 10^6/uL Hgb (14.0-18.0) g/dL Hct (42.0-52.0) % MCV (80.0-105.0) fl MCH (25.0-35.0) pg MCHC (31.0-37.0) g/dl RDW (11.5-14.5) % Plt Count (120.0-450.0) 10^3/uL MPV (7.0-11.0) fl Gran % (50.0-68.0) % Lymph % (Auto) (22.0-35.0) % [place] % (Auto) (1.0-6.0) % Eos % (Auto) (1.5-5.0) % Baso % (Auto) (0.0-3.0) % Gran # (1.4-6.5) Lymph # (Auto) (1.2-3.4) [place] # (Auto) (0.1-0.6) Eos # (Auto) (0.0-0.7) Baso # (Auto) (0.0-2.0) K/mm3 pCO2 24 L (35-45) mm/Hg pO2 173.0 H (80-100) mm/Hg HCO3 21.0 (21-28) mmol/L ABG pH 7.55 H (7.35-7.45) ABG Total CO2 21.7 L (22-28) mmol.L ABG O2 Saturation 99.5 H (95-98) % ABG O2 Content 15.0 (15-23) ML/dl ABG Base Excess -0.3 (-2.0-3.0) mmol/L ABG Hemoglobin 10.8 L (11.7-17.4) g/dL ABG Carboxyhemoglobin 2.0 H (0.5-1.5) % POC ABG HHb (Measured) 0.5 (0-5) % ABG Methemoglobin 1.1 (0.0-3.0) % ABG O2 Capacity 15.1 L (16-24) mL/dl Hgb O2 Saturation 96.5 (95.0-98.0) % FiO2 40.0 % Sodium 138 (132-148) mmol/L Potassium 3.4 L (3.6-5.0) mmol/L Chloride 108 H (98-107) mmol/L Carbon Dioxide 23 (21-33) mmol/L Anion Gap 10 (10-20) BUN 19 (7-21) mg/dL Creatinine 1.0 (0.8-1.5) mg/dl Est GFR ( Amer) > 60 Est GFR (Non-Af Amer) > 60 POC Glucose (mg/dL) 109 (65-110) mg/dL Random Glucose 109 (70-110) mg/dL Calcium 7.3 L (8.4-10.5) mg/dL Total Bilirubin 1.0 (0.2-1.3) mg/dL AST 28 (17-59) U/L ALT 30 (7-56) U/L Alkaline Phosphatase 67 (38-126) U/L Ammonia (9-33) umol/L Total Protein 3.9 L (5.8-8.3) g/dL Albumin 1.8 L (3.0-4.8) g/dL Globulin 2.1 gm/dL Albumin/Globulin Ratio 0.8 L (1.1-1.8) 02/13/18 02/13/18 02/12/18 Range/Units 07:00 05:41 23:48 WBC 6.9 D (4.5-11.0) 10^3/ul RBC 3.35 L (3.5-6.1) 10^6/uL Hgb 10.2 L (14.0-18.0) g/dL Hct 30.5 L (42.0-52.0) % MCV 91.0 (80.0-105.0) fl MCH 30.4 (25.0-35.0) pg MCHC 33.4 (31.0-37.0) g/dl RDW 19.1 H (11.5-14.5) % Plt Count 137 (120.0-450.0) 10^3/uL MPV 9.4 (7.0-11.0) fl Gran % 88.1 H (50.0-68.0) % Lymph % (Auto) 8.0 L (22.0-35.0) % [place] % (Auto) 3.9 (1.0-6.0) % Eos % (Auto) 0.0 L (1.5-5.0) % Baso % (Auto) 0.0 (0.0-3.0) % Gran # 6.09 (1.4-6.5) Lymph # (Auto) 0.6 L (1.2-3.4) [place] # (Auto) 0.3 (0.1-0.6) Eos # (Auto) 0.0 (0.0-0.7) Baso # (Auto) 0.00 (0.0-2.0) K/mm3 pCO2 (35-45) mm/Hg pO2 (80-100) mm/Hg HCO3 (21-28) mmol/L ABG pH (7.35-7.45) ABG Total CO2 (22-28) mmol.L ABG O2 Saturation (95-98) % ABG O2 Content (15-23) ML/dl ABG Base Excess (-2.0-3.0) mmol/L ABG Hemoglobin (11.7-17.4) g/dL ABG Carboxyhemoglobin (0.5-1.5) % POC ABG HHb (Measured) (0-5) % ABG Methemoglobin (0.0-3.0) % ABG O2 Capacity (16-24) mL/dl Hgb O2 Saturation (95.0-98.0) % FiO2 % Sodium (132-148) mmol/L Potassium (3.6-5.0) mmol/L Chloride (98-107) mmol/L Carbon Dioxide (21-33) mmol/L Anion Gap (10-20) BUN (7-21) mg/dL Creatinine (0.8-1.5) mg/dl Est GFR ( Amer) Est GFR (Non-Af Amer) POC Glucose (mg/dL) 103 92 (65-110) mg/dL Random Glucose (70-110) mg/dL Calcium (8.4-10.5) mg/dL Total Bilirubin (0.2-1.3) mg/dL AST (17-59) U/L ALT (7-56) U/L Alkaline Phosphatase (38-126) U/L Ammonia (9-33) umol/L Total Protein (5.8-8.3) g/dL Albumin (3.0-4.8) g/dL Globulin gm/dL Albumin/Globulin Ratio (1.1-1.8) 02/12/18 02/12/18 Range/Units 19:26 19:26 WBC (4.5-11.0) 10^3/ul RBC (3.5-6.1) 10^6/uL Hgb 10.9 L (14.0-18.0) g/dL Hct 32.3 L (42.0-52.0) % MCV (80.0-105.0) fl MCH (25.0-35.0) pg MCHC (31.0-37.0) g/dl RDW (11.5-14.5) % Plt Count (120.0-450.0) 10^3/uL MPV (7.0-11.0) fl Gran % (50.0-68.0) % Lymph % (Auto) (22.0-35.0) % [place] % (Auto) (1.0-6.0) % Eos % (Auto) (1.5-5.0) % Baso % (Auto) (0.0-3.0) % Gran # (1.4-6.5) Lymph # (Auto) (1.2-3.4) [place] # (Auto) (0.1-0.6) Eos # (Auto) (0.0-0.7) Baso # (Auto) (0.0-2.0) K/mm3 pCO2 (35-45) mm/Hg pO2 (80-100) mm/Hg HCO3 (21-28) mmol/L ABG pH (7.35-7.45) ABG Total CO2 (22-28) mmol.L ABG O2 Saturation (95-98) % ABG O2 Content (15-23) ML/dl ABG Base Excess (-2.0-3.0) mmol/L ABG Hemoglobin (11.7-17.4) g/dL ABG Carboxyhemoglobin (0.5-1.5) % POC ABG HHb (Measured) (0-5) % ABG Methemoglobin (0.0-3.0) % ABG O2 Capacity (16-24) mL/dl Hgb O2 Saturation (95.0-98.0) % FiO2 % Sodium (132-148) mmol/L Potassium (3.6-5.0) mmol/L Chloride (98-107) mmol/L Carbon Dioxide (21-33) mmol/L Anion Gap (10-20) BUN (7-21) mg/dL Creatinine (0.8-1.5) mg/dl Est GFR ( Amer) Est GFR (Non-Af Amer) POC Glucose (mg/dL) (65-110) mg/dL Random Glucose (70-110) mg/dL Calcium (8.4-10.5) mg/dL Total Bilirubin (0.2-1.3) mg/dL AST (17-59) U/L ALT (7-56) U/L Alkaline Phosphatase (38-126) U/L Ammonia 11 (9-33) umol/L Total Protein (5.8-8.3) g/dL Albumin (3.0-4.8) g/dL Globulin gm/dL Albumin/Globulin Ratio (1.1-1.8) Laboratory Results - last 24 hr 02/12/18 02/12/18 02/12/18 19:26 19:26 23:48 WBC RBC Hgb 10.9 L Hct 32.3 L MCV MCH MCHC RDW Plt Count MPV Gran % Lymph % (Auto) [place] % (Auto) Eos % (Auto) Baso % (Auto) Gran # Lymph # (Auto) [place] # (Auto) Eos # (Auto) Baso # (Auto) pCO2 pO2 HCO3 ABG pH ABG Total CO2 ABG O2 Saturation ABG O2 Content ABG Base Excess ABG Hemoglobin ABG Carboxyhemoglobin POC ABG HHb (Measured) ABG Methemoglobin ABG O2 Capacity Hgb O2 Saturation FiO2 Sodium Potassium Chloride Carbon Dioxide Anion Gap BUN Creatinine Est GFR ( Amer) Est GFR (Non-Af Amer) POC Glucose (mg/dL) 92 Random Glucose Calcium Total Bilirubin AST ALT Alkaline Phosphatase Ammonia 11 Total Protein Albumin Globulin Albumin/Globulin Ratio 02/13/18 02/13/18 02/13/18 05:41 07:00 07:00 WBC 6.9 D RBC 3.35 L Hgb 10.2 L Hct 30.5 L MCV 91.0 MCH 30.4 MCHC 33.4 RDW 19.1 H Plt Count 137 MPV 9.4 Gran % 88.1 H Lymph % (Auto) 8.0 L [place] % (Auto) 3.9 Eos % (Auto) 0.0 L Baso % (Auto) 0.0 Gran # 6.09 Lymph # (Auto) 0.6 L [place] # (Auto) 0.3 Eos # (Auto) 0.0 Baso # (Auto) 0.00 pCO2 pO2 HCO3 ABG pH ABG Total CO2 ABG O2 Saturation ABG O2 Content ABG Base Excess ABG Hemoglobin ABG Carboxyhemoglobin POC ABG HHb (Measured) ABG Methemoglobin ABG O2 Capacity Hgb O2 Saturation FiO2 Sodium 138 Potassium 3.4 L Chloride 108 H Carbon Dioxide 23 Anion Gap 10 BUN 19 Creatinine 1.0 Est GFR ( Amer) > 60 Est GFR (Non-Af Amer) > 60 POC Glucose (mg/dL) 103 Random Glucose 109 Calcium 7.3 L Total Bilirubin 1.0 AST 28 ALT 30 Alkaline Phosphatase 67 Ammonia Total Protein 3.9 L Albumin 1.8 L Globulin 2.1 Albumin/Globulin Ratio 0.8 L 02/13/18 02/13/18 08:30 11:37 WBC RBC Hgb Hct MCV MCH MCHC RDW Plt Count MPV Gran % Lymph % (Auto) [place] % (Auto) Eos % (Auto) Baso % (Auto) Gran # Lymph # (Auto) [place] # (Auto) Eos # (Auto) Baso # (Auto) pCO2 24 L pO2 173.0 H HCO3 21.0 ABG pH 7.55 H ABG Total CO2 21.7 L ABG O2 Saturation 99.5 H ABG O2 Content 15.0 ABG Base Excess -0.3 ABG Hemoglobin 10.8 L ABG Carboxyhemoglobin 2.0 H POC ABG HHb (Measured) 0.5 ABG Methemoglobin 1.1 ABG O2 Capacity 15.1 L Hgb O2 Saturation 96.5 FiO2 40.0 Sodium Potassium Chloride Carbon Dioxide Anion Gap BUN Creatinine Est GFR ( Amer) Est GFR (Non-Af Amer) POC Glucose (mg/dL) 109 Random Glucose Calcium Total Bilirubin AST ALT Alkaline Phosphatase Ammonia Total Protein Albumin Globulin Albumin/Globulin Ratio Attending/Attestation - Attestation I have personally seen and examined this patient.: Yes I have fully participated in the care of the patient.: Yes I have reviewed all pertinent clinical information: Yes Notes (Text): 02/13/18 18:11 67 yo male with anoxic brain injury and SE, currently on propofol and midazolam , phenobarbital. EEG will be repeated today. Neurology requested cerebral flow today, which was done. Family is planning terminal extubation yesterday. ccm time 40 min
--- NOTE | 2018-02-13 13:18 | CP.PCM.PN ---
Subjective - Date & Time of Evaluation Date of Evaluation: 02/13/18 Time of Evaluation: 09:20 - Subjective Subjective: Still on the ventilator, no fevers. Still sedated and on vasopressor support. Objective - Vital Signs/Intake and Output Vital Signs (last 24 hours): Temp Pulse Resp BP Pulse Ox 98.2 F 70 18 114/72 99 02/12/18 15:00 02/12/18 22:00 02/12/18 00:00 02/12/18 15:00 02/12/18 15:00 Intake and Output: 02/13/18 02/13/18 06:59 18:59 Intake Total 2245 Output Total 1500 Balance 745 - Medications Medications: Current Medications Artificial Tears (Artificial Tears Opht Oint) 0 gm OU Q6 [facility] Last Admin: 02/13/18 05:57 Dose: Not Given Hydrocortisone Sodium Succinate (Solu-Cortef) 50 mg IVP Q8 KE[facility] Last Admin: 02/13/18 05:58 Dose: 50 mg Propofol (Diprivan) 1,000 mg in 100 mls @ 3 mls/hr IV .Q24H PRN; Protocol; 5 MCG/KG/MIN PRN Reason: TITRATE PER MD ORDER Last Titration: 02/12/18 16:34 Dose: 0 mcg/kg/min, 0 mls/hr NOREPINEPHRINE BIT/0.9 % NACL (Levophed 4 Mg/ 250 Ml Ns Premixed) 4 mg in 250 mls @ 15 mls/hr IV .[id number] PRN; Protocol; 4 MCG/MIN PRN Reason: TITRATE PER MD ORDER Last Titration: 02/13/18 05:40 Dose: 5 mcg/min, 18.75 mls/hr Vasopressin 20 units/ Sodium (Chloride) 101 mls @ 9.09 mls/hr IV .Q11H7M KELLY; 0.03 U/MIN PRN Reason: Protocol Last Admin: 02/13/18 05:58 Dose: Not Given Linezolid (Zyvox 600mg/300ml D5w) 600 mg in 300 mls @ 200 mls/hr IVPB Q12 [facility] PRN Reason: Protocol Stop: 02/18/18 10:01 Last Admin: 02/12/18 22:00 Dose: 200 mls/hr Midazolam 100 mg/100ml in NS (Midazolam 100 Mg/100ml In Ns) 100 mg in 100 mls @ 1 mls/hr IV .Q24H PRN; Protocol; 1 MG/HR PRN Reason: Agitation Last Titration: 02/12/18 14:04 Dose: 3 mg/hr, 3 mls/hr Levetiracetam 1,500 mg/ Sodium (Chloride) 115 mls @ 460 mls/hr IV Q12H [facility] Last Admin: 02/12/18 18:27 Dose: 460 mls/hr Aztreonam (Azactam 1 Gm) 100 mls @ 100 mls/hr IVPB Q8 [facility] PRN Reason: Protocol Stop: 02/17/18 11:31 Last Admin: 02/13/18 05:57 Dose: 100 mls/hr Doxycycline Hyclate 100 mg/ (Sodium Chloride) 100 mls @ 100 mls/hr IVPB Q12 [facility] PRN Reason: Protocol Last Admin: 02/12/18 22:00 Dose: 100 mls/hr Dextrose/Sodium Chloride (Dextrose 5%/0.9% Ns 1000 Ml) 1,000 mls @ 50 mls/hr IV .Q20H [facility] Last Admin: 02/13/18 05:57 Dose: 50 mls/hr Pantoprazole Sodium (Protonix 40mg Ivpb) 40 mg in 100 mls @ 20 mls/hr IVPB .Q5H [facility] Last Admin: 02/13/18 05:41 Dose: 20 mls/hr Phenytoin 200 mg/ Sodium (Chloride) 54 mls @ 104 mls/hr IVPB Q12 [facility] Valproate Sodium 1,500 mg/ (Sodium Chloride) 115 mls @ 92 mls/hr IVPB Q12 [facility] Potassium Chloride (Potassium Chloride 20 Meq/100 Ml) 100 mls @ 50 mls/hr IV Q2H [facility] Stop: 02/13/18 12:44 Phenobarbital (Phenobarbital Inj) 50 mg IV Q6 KE[facility] Last Admin: 02/13/18 05:41 Dose: Not Given - Labs Labs: 02/13/18 07:00 02/13/18 07:00 PT 12.0 SECONDS (9.4-12.5) 02/12/18 11:20 INR 1.04 (0.93-1.08) 02/12/18 11:20 APTT 31.3 Seconds (25.1-36.5) 02/12/18 11:20 - Constitutional Appears: Other (intubated, sedated, on vasopressor support) - ENT Exam Additional comments: ET tube in place - Respiratory Exam Respiratory Exam: Decreased Breath Sounds - Cardiovascular Exam Cardiovascular Exam: +S1, +S2 - GI/Abdominal Exam GI & Abdominal Exam: Soft. absent: Tenderness Assessment and Plan - Assessment and Plan (Free Text) Plan: Assessment Systemic Inflammatory response syndrome with hypotension after cardiac arrest, with ventilator-dependent respiratory failure and status epilepticus, consider severe sepsis / septic on top of cardiogenic shock from right sided HCAP / aspiration pneumonia on top of acute on chronic CHF history left leg skin and skin structure infection, growing Roultella and MSSA, clinically improving history of right leg skin and skin structure infection with Pseudomonas and MRSA HTN COPD S/P pacemaker placement chronic atrial fibrillation on anticoagulation S/P right knee replacement chronic CHF with dilated cardiomyopathy Plan on Zyvox day 6 and Azactam day [address] Arias since patient is continually seizing - will also continue Doxycycline day 4 and will follow up final culture results (so far negative) - target 4-7 days of therapy discussed with family that overall prognosis is poor and they understand
--- NOTE | 2018-02-13 13:55 | CP.PCM.PN ---
Subjective - Date & Time of Evaluation Date of Evaluation: 02/13/18 Time of Evaluation: 13:00 - Subjective Subjective: Sedated, no acute overnights Objective - Vital Signs/Intake and Output Vital Signs (last 24 hours): Temp Pulse Resp BP Pulse Ox 98.2 F 70 18 114/72 99 02/12/18 15:00 02/12/18 22:00 02/12/18 00:00 02/12/18 15:00 02/12/18 15:00 Intake and Output: 02/13/18 02/13/18 06:59 18:59 Intake Total 2245 Output Total 1500 Balance 745 - Medications Medications: Current Medications Artificial Tears (Artificial Tears Opht Oint) 0 gm OU Q6 KELLY Last Admin: 02/13/18 05:57 Dose: Not Given Hydrocortisone Sodium Succinate (Solu-Cortef) 50 mg IVP Q8 KELLY Last Admin: 02/13/18 05:58 Dose: 50 mg Propofol (Diprivan) 1,000 mg in 100 mls @ 3 mls/hr IV .Q24H PRN; Protocol; 5 MCG/KG/MIN PRN Reason: TITRATE PER MD ORDER Last Titration: 02/12/18 16:34 Dose: 0 mcg/kg/min, 0 mls/hr NOREPINEPHRINE BIT/0.9 % NACL (Levophed 4 Mg/ 250 Ml Ns Premixed) 4 mg in 250 mls @ 15 mls/hr IV .[id number] PRN; Protocol; 4 MCG/MIN PRN Reason: TITRATE PER MD ORDER Last Titration: 02/13/18 05:40 Dose: 5 mcg/min, 18.75 mls/hr Vasopressin 20 units/ Sodium (Chloride) 101 mls @ 9.09 mls/hr IV .Q11H7M KELLY; 0.03 U/MIN PRN Reason: Protocol Last Admin: 02/13/18 05:58 Dose: Not Given Linezolid (Zyvox 600mg/300ml D5w) 600 mg in 300 mls @ 200 mls/hr IVPB Q12 [facility] PRN Reason: Protocol Stop: 02/18/18 10:01 Last Admin: 02/12/18 22:00 Dose: 200 mls/hr Midazolam 100 mg/100ml in NS (Midazolam 100 Mg/100ml In Ns) 100 mg in 100 mls @ 1 mls/hr IV .Q24H PRN; Protocol; 1 MG/HR PRN Reason: Agitation Last Titration: 02/12/18 14:04 Dose: 3 mg/hr, 3 mls/hr Levetiracetam 1,500 mg/ Sodium (Chloride) 115 mls @ 460 mls/hr IV Q12H [facility] Last Admin: 02/12/18 18:27 Dose: 460 mls/hr Aztreonam (Azactam 1 Gm) 100 mls @ 100 mls/hr IVPB Q8 KE[facility] PRN Reason: Protocol Stop: 02/17/18 11:31 Last Admin: 02/13/18 05:57 Dose: 100 mls/hr Doxycycline Hyclate 100 mg/ (Sodium Chloride) 100 mls @ 100 mls/hr IVPB Q12 KELLY PRN Reason: Protocol Last Admin: 02/12/18 22:00 Dose: 100 mls/hr Dextrose/Sodium Chloride (Dextrose 5%/0.9% Ns 1000 Ml) 1,000 mls @ 50 mls/hr IV .Q20H [facility] Last Admin: 02/13/18 05:57 Dose: 50 mls/hr Pantoprazole Sodium (Protonix 40mg Ivpb) 40 mg in 100 mls @ 20 mls/hr IVPB .Q5H [facility] Last Admin: 02/13/18 12:34 Dose: 20 mls/hr Phenytoin 200 mg/ Sodium (Chloride) 54 mls @ 104 mls/hr IVPB Q12 [facility] Valproate Sodium 1,500 mg/ (Sodium Chloride) 115 mls @ 92 mls/hr IVPB Q12 [facility] Phenobarbital (Phenobarbital Inj) 50 mg IV Q6 [facility] Last Admin: 02/13/18 05:41 Dose: Not Given - Labs Labs: 02/13/18 07:00 02/13/18 07:00 PT 12.0 SECONDS (9.4-12.5) 02/12/18 11:20 INR 1.04 (0.93-1.08) 02/12/18 11:20 APTT 31.3 Seconds (25.1-36.5) 02/12/18 11:20 - Constitutional Appears: Chronically Ill - Eye Exam Eye Exam: Normal appearance - ENT Exam ENT Exam: Mucous Membranes Moist - Respiratory Exam Respiratory Exam: Decreased Breath Sounds, Rhonchi - Cardiovascular Exam Cardiovascular Exam: REGULAR RHYTHM, +S1, +S2 - GI/Abdominal Exam GI & Abdominal Exam: Soft, Normal Bowel Sounds - Extremities Exam Additional comments: extremities edematous, bilateral lower extremity cellulitis - Neurological Exam Neurological Exam: Altered - Skin Skin Exam: Dry, Pallor Assessment and Plan - Assessment and Plan (Free Text) Assessment: 67 year old a male with history of HTN,CAD,CHF, s/p AICD who is admitted s/p cardiopulmonary arrest with anoxic brain injury,sepsis and status epilepticus. Patients at bedside. Neuro spoke with again today and explained that patient was still having seizures. Neuro recommending that patient be transferred to [place] for continuos monitoring. refusing, does not want transferred from [place]. I explained that because of seizures patient will require sedation,and that while sedated, weaning from vent not possible. made aware that ET tube can not be left indefinitely. Informed that she will have to decide about Trach/PEG or terminal extubation. Reaffirmed that his prognosis is poor and that he would likely not return to baseline functional status. Encouraged to consider his quality of life when making this decision. Psychosocial support provided. Time spent with family in goals of care discussion Plan: Goals of care
[2018-02-13] MEDS: NOREPINEPHRINE BIT/0.9 % NACL 4 MG/250 ML BAG IV PRN (14:48)
[2018-02-13] MEDS: levETIRAcetam 1,500 MG in Sodium Chloride 0.9% 100 ML IV SCH ×2 (20:00→20:01)
[2018-02-14] MEDS: PHENobarbital 130 mg/ml Inj Syringe IV SCH ×4 (00:36→18:35)
[2018-02-14] MEDS: Mineral Oil/Petrolatum Opht Oint(3.5 gm) OU SCH ×4 (00:36→18:51)
[2018-02-14] MEDS: Aztreonam 1 Gm in NS 100mL 100 ML IVPB SCH ×3 (05:55→22:00)
[2018-02-14] MEDS: levETIRAcetam 1,500 MG in Sodium Chloride 0.9% 100 ML IV SCH ×2 (06:32→18:32)
[2018-02-14 06:46] LABS: GRAN # 6.73 (1.4-6.5); GRAN % 89.8 % (50.0-68.0); HEMOGLOBIN 12.1 g/dL (14.0-18.0); LYMPH # 0.5 (1.2-3.4); LYMPH % 7.1 % (22.0-35.0); MEAN CELL VOLUME 93.3 fl (80.0-105.0); MEAN CORPUSCULAR HEMOGLOBIN 30.3 pg (25.0-35.0); MEAN CORPUSCULAR HGB CONC 32.4 g/dl (31.0-37.0); MONO # 0.2 (0.1-0.6); MONO % 3.1 % (1.0-6.0); RED CELL DISTRIBUTION WIDTH 19.6 % (11.5-14.5); WHITE BLOOD COUNT 7.5 10^3/ul (4.5-11.0)
[2018-02-14 06:56] LABS: ARTERIAL BLOOD GAS HCO3 31.1 mmol/L (21-28); ARTERIAL BLOOD GAS O2 CAPACITY 12.4 mL/dl (16-24); ARTERIAL BLOOD GAS O2 CONTENT 11.6 ML/dl (15-23); ARTERIAL BLOOD GAS O2 SAT 93.4 % (95-98); ARTERIAL BLOOD GAS PCO2 49 mm/Hg (35-45); ARTERIAL BLOOD GAS PH 7.41 (7.35-7.45); ARTERIAL BLOOD GAS TCO2 32.6 mmol.L (22-28)
[2018-02-14 07:07] LABS: ALB/GLOB RATIO 0.8 (1.1-1.8); ALBUMIN 2.1 g/dL (3.0-4.8); ALT/SGPT 28 U/L (7-56); AST/SGOT 29 U/L (17-59); BLOOD UREA NITROGEN 21 mg/dL (7-21); CALCIUM 7.5 mg/dL (8.4-10.5); GFR AFRICAN-AMERICAN > 60; GFR NON-AFRICAN AMERICAN > 60
--- NOTE | 2018-02-14 08:22 | PN ---
DATE: 02/13/2018 SUBJECTIVE: The patient is 67 years old, seen and examined. Remains intubated, unresponsive. Scheduled to have another EEG done. Family by the bedside. No more active bleeding noted. OBJECTIVE: GENERAL: Remains intubated and sedated. VITAL SIGNS: Temperature 97.5, pulse 70, respirations 18, blood pressure 114/72. LUNGS: Bilateral fair airflow. HEART: Regular rate and rhythm. ABDOMEN: Soft, obese, nontender. NEUROLOGIC: He is unresponsive. EXTREMITIES: Bilateral legs, he has +4 edema. LABORATORY DATA: WBC 6.9, hemoglobin 10.2, hematocrit 31.5, and platelets of 137. Chemistry: Sodium 138, potassium 3.4, chloride 108, CO2 of 23. BUN of 19, creatinine 1. Blood sugar of 109. Album 1.8. Stool for Hemoccult is positive. X-ray of chest shows still a stable CHF and patchy density in the right apex medially and small left pleural effusion. ASSESSMENT: 1. Status post cardiac arrest. 2. Respiratory failure. 3. Anoxic encephalopathy. 4. Sepsis. 5. Bilateral leg cellulitis and edema. 6. Seizure disorder. 7. Acute on chronic kidney disease. 8. Dilated cardiomyopathy. 9. History of cancer of prostate. PLAN: Further determination will be done after today's EEG; however, family had made him DNR. Overall prognosis is poor. Clif Lala MD
--- NOTE | 2018-02-14 08:33 | CP.PCM.PN ---
Subjective - Date & Time of Evaluation Date of Evaluation: 02/14/18 Time of Evaluation: 07:00 - Subjective Subjective: Stable in ICU. Chart reviewed. No improvement in neuro status last 24 hrs. I spoke with his at the bedside today. V/S noted. V. Paced. 123/70 PE: Lungs: rhonchi Cor: S1S2 Abd.: soft Ext.: + edema and discoloration Neuro.: sedated, coma I/O= 2415/500 recorded Labs and ABGs noted: K+= 4.0 Stool + OB BC X2 NG at 5 days CXR noted: not read yet, no change by my interp. Objective - Vital Signs/Intake and Output Vital Signs (last 24 hours): Temp Pulse Resp BP Pulse Ox 98.4 F 79 18 123/70 98 02/14/18 06:00 02/14/18 06:00 02/12/18 00:00 02/14/18 06:00 02/14/18 06:00 Intake and Output: 02/14/18 02/14/18 06:59 18:59 Intake Total 2262 Output Total 500 Balance 1762 - Medications Medications: Current Medications Artificial Tears (Artificial Tears Opht Oint) 0 gm OU Q6 KELLY Last Admin: 02/14/18 06:32 Dose: 1 applic Hydrocortisone Sodium Succinate (Solu-Cortef) 50 mg IVP Q8 KELLY Last Admin: 02/14/18 05:56 Dose: 50 mg Propofol (Diprivan) 1,000 mg in 100 mls @ 3 mls/hr IV .Q24H PRN; Protocol; 5 MCG/KG/MIN PRN Reason: TITRATE PER MD ORDER Last Titration: 02/13/18 13:00 Dose: 5 mcg/kg/min, 3 mls/hr NOREPINEPHRINE BIT/0.9 % NACL (Levophed 4 Mg/ 250 Ml Ns Premixed) 4 mg in 250 mls @ 15 mls/hr IV .[id number] PRN; Protocol; 4 MCG/MIN PRN Reason: TITRATE PER MD ORDER Last Titration: 02/13/18 19:00 Dose: 10 mcg/min, 37.5 mls/hr Vasopressin 20 units/ Sodium (Chloride) 101 mls @ 9.09 mls/hr IV .Q11H7M KELLY; 0.03 U/MIN PRN Reason: Protocol Last Admin: 02/13/18 05:58 Dose: Not Given Linezolid (Zyvox 600mg/300ml D5w) 600 mg in 300 mls @ 200 mls/hr IVPB Q12 KELLY PRN Reason: Protocol Stop: 02/18/18 10:01 Last Admin: 02/13/18 22:25 Dose: 200 mls/hr Midazolam 100 mg/100ml in NS (Midazolam 100 Mg/100ml In Ns) 100 mg in 100 mls @ 1 mls/hr IV .Q24H PRN; Protocol; 1 MG/HR PRN Reason: Agitation Last Titration: 02/12/18 14:04 Dose: 3 mg/hr, 3 mls/hr Levetiracetam 1,500 mg/ Sodium (Chloride) 115 mls @ 460 mls/hr IV Q12H [facility] Last Admin: 02/14/18 06:32 Dose: 460 mls/hr Aztreonam (Azactam 1 Gm) 100 mls @ 100 mls/hr IVPB Q8 [facility] PRN Reason: Protocol Stop: 02/17/18 11:31 Last Admin: 02/14/18 05:55 Dose: 100 mls/hr Doxycycline Hyclate 100 mg/ (Sodium Chloride) 100 mls @ 100 mls/hr IVPB Q12 [facility] PRN Reason: Protocol Last Admin: 02/13/18 22:23 Dose: 100 mls/hr Dextrose/Sodium Chloride (Dextrose 5%/0.9% Ns 1000 Ml) 1,000 mls @ 50 mls/hr IV .Q20H [facility] Last Admin: 02/13/18 22:20 Dose: 50 mls/hr Pantoprazole Sodium (Protonix 40mg Ivpb) 40 mg in 100 mls @ 20 mls/hr IVPB .Q5H [facility] Last Admin: 02/13/18 23:45 Dose: 20 mls/hr Phenytoin 200 mg/ Sodium (Chloride) 54 mls @ 104 mls/hr IVPB Q12 [facility] Last Admin: 02/13/18 22:20 Dose: 104 mls/hr Valproate Sodium 1,500 mg/ (Sodium Chloride) 115 mls @ 92 mls/hr IVPB Q12 [facility] Last Admin: 02/13/18 22:19 Dose: 92 mls/hr Phenobarbital (Phenobarbital Inj) 50 mg IV Q6 [facility] Last Admin: 02/14/18 06:38 Dose: 50 mg - Labs Labs: 02/14/18 05:40 02/14/18 05:40 PT 12.0 SECONDS (9.4-12.5) 02/12/18 11:20 INR 1.04 (0.93-1.08) 02/12/18 11:20 APTT 31.3 Seconds (25.1-36.5) 02/12/18 11:20 Assessment and Plan - Assessment and Plan (Free Text) Assessment: S/P cardiac arrest at home with prolonged down time Anoxic encephalopathy with seizures Acute on chronic kidney disease CCM, severe, etoh related Chronic CHF Bilat. LE cellulitis and non-healing wound LLE ICD/NSVT Prostate cancer, seed implants Right TKR Chronic ETOH, recently stopped 12/25 Former Smoker Plan: Continue support. DNR/DNI noted As per Neuro., Intensivists, Dr. Mccormack, Palliative Care, ID Monitor: labs, I/O, sats., neuro status, etc. Will follow Poor prognosis for neuro recovery noted.
[2018-02-14] MEDS: Valproate 1,500 MG in Sodium Chloride 0.9% 100 ML IVPB SCH ×2 (09:37→22:04)
[2018-02-14] MEDS: Linezolid 600 mg in D5W 300 ml 600 MG/300 ML BAG IVPB SCH (09:39)
[2018-02-14] MEDS: Pantoprazole 40mg/100mL NS 40 MG/100 ML BAG IVPB SCH (10:00)
--- NOTE | 2018-02-14 10:03 | PN ---
DATE: 02/14/2018 SUBJECTIVE: The patient is seen and examined at bedside. He is sedated, on Versed and propofol. He is on norepinephrine 8 mcg per minute. He is on PRVC. PHYSICAL EXAMINATION: VITAL SIGNS: Blood pressure 126/85, heart rate 78, oxygen saturation 99%, temperature 98.4, respiratory rate 14, oxygen saturation 99%. HEENT: Head and neck atraumatic. LUNGS: Clear to auscultation bilaterally. HEART: Regular rate and rhythm. S1, S2 normal. ABDOMEN: Soft, nontender, nondistended. MUSCULOSKELETAL: There are chronic cellulitic changes. SKIN: Moist. PSYCHIATRIC: The patient is sedated. LABORATORY DATA: WBC is 7.5, hemoglobin 12.1, platelet count 191. Sodium 139, potassium 4, chloride 110, carbon dioxide 22, BUN 21, creatinine 0.9 down from 1, glucose 145. MEDICATIONS: Aztreonam, D5 normal saline 50 mL/hour, phenytoin, doxycycline, hydrocortisone 50 mg IV every 8 hours, Keppra, norepinephrine, phenobarbital 50 mg IV every 6 hours, Protonix, Depakote, vasopressin, and Zyvox. ASSESSMENT AND PLAN: This is a 67-year-old gentleman with anoxic brain injury complicated by status epilepticus. The patient's family ( at bedside) refuses to transfer the patient to a facility with continuous EEG monitoring capability. She opts for comfort care/palliative care with terminal extubation on Saturday. At the present time, however, she asks to keep antiseizure medications on as well as maintain his blood pressure within acceptable range, but wants him to be do not resuscitate/do not intubate status. She understands the reason why discussion about transferring to continuous EEG monitoring facility was taken place; however, she reiterated that she does not want him to be transferred and wants to proceed with withdrawal of care on Saturday as she said he would not want to be artificially supported by "machine" if chances for meaningful neurologic recovery is minimal. At present time, we will continue with conservative fluid and oxygen management, maintaining propofol, Versed, and phenobarbital on board. Maintain blood pressure within acceptable range, head of bed elevated >35 degrees, oral hygiene, deep venous thrombosis and gastrointestinal prophylaxes. ccm time 40 min Lobo Zhou MD JOLENE
--- NOTE | 2018-02-14 10:22 | RAD ---
HISTORY: intubated COMPARISON: 02/13/2018 FINDINGS: LUNGS: There is severe vascular congestion which is unchanged. Central lines and tubes remain in satisfactory position PLEURA: No significant pleural effusion identified, no pneumothorax apparent. CARDIOVASCULAR: Normal. OSSEOUS STRUCTURES: No significant abnormalities. VISUALIZED UPPER ABDOMEN: Normal. OTHER FINDINGS: None. IMPRESSION: There is severe vascular congestion which is unchanged. Central lines and tubes remain in satisfactory position
--- NOTE | 2018-02-14 12:11 | CP.PCM.PN ---
Subjective - Date & Time of Evaluation Date of Evaluation: 02/14/18 Time of Evaluation: 12:11 - Subjective Subjective: Mr. Rajput was seen and examined at the bedside in ICU. He remains on mechanical ventilator PRVC mode, not breathing over the set vent. settings, with no corneal reflex, non-reactive pupils, no gag reflex, GCS-3T. Currently receiving propofol and midazolam for sedation and a vasopressor for blood pressure support. Bilateral upper extremities swollen.Family at bedside.There was no untoward events overnight. Objective - Vital Signs/Intake and Output Vital Signs (last 24 hours): Temp Pulse Resp BP Pulse Ox 98.4 F 70 14 127/74 99 02/14/18 11:03 02/14/18 11:03 02/14/18 11:03 02/14/18 11:00 02/14/18 11:03 Intake and Output: 02/14/18 02/14/18 06:59 18:59 Intake Total 2262 0 Output Total 500 Balance 1762 0 - Medications Medications: Current Medications Artificial Tears (Artificial Tears Opht Oint) 0 gm OU Q6 [facility] Last Admin: 02/14/18 06:32 Dose: 1 applic Hydrocortisone Sodium Succinate (Solu-Cortef) 50 mg IVP Q8 [facility] Last Admin: 02/14/18 05:56 Dose: 50 mg Propofol (Diprivan) 1,000 mg in 100 mls @ 3 mls/hr IV .Q24H PRN; Protocol; 5 MCG/KG/MIN PRN Reason: TITRATE PER MD ORDER Last Titration: 02/14/18 08:35 Dose: 10 mcg/kg/min, 6 mls/hr NOREPINEPHRINE BIT/0.9 % NACL (Levophed 4 Mg/ 250 Ml Ns Premixed) 4 mg in 250 mls @ 15 mls/hr IV .[id number] PRN; Protocol; 4 MCG/MIN PRN Reason: TITRATE PER MD ORDER Last Titration: 02/14/18 07:25 Dose: 8 mcg/min, 30 mls/hr Vasopressin 20 units/ Sodium (Chloride) 101 mls @ 9.09 mls/hr IV .Q11H7M [facility]; 0.03 U/MIN PRN Reason: Protocol Last Admin: 02/13/18 05:58 Dose: Not Given Linezolid (Zyvox 600mg/300ml D5w) 600 mg in 300 mls @ 200 mls/hr IVPB Q12 [facility] PRN Reason: Protocol Stop: 02/18/18 10:01 Last Admin: 02/14/18 09:39 Dose: 200 mls/hr Midazolam 100 mg/100ml in NS (Midazolam 100 Mg/100ml In Ns) 100 mg in 100 mls @ 1 mls/hr IV .Q24H PRN; Protocol; 1 MG/HR PRN Reason: Agitation Last Titration: 02/12/18 14:04 Dose: 3 mg/hr, 3 mls/hr Levetiracetam 1,500 mg/ Sodium (Chloride) 115 mls @ 460 mls/hr IV Q12H [facility] Last Admin: 02/14/18 06:32 Dose: 460 mls/hr Aztreonam (Azactam 1 Gm) 100 mls @ 100 mls/hr IVPB Q8 [facility] PRN Reason: Protocol Stop: 02/17/18 11:31 Last Admin: 02/14/18 05:55 Dose: 100 mls/hr Doxycycline Hyclate 100 mg/ (Sodium Chloride) 100 mls @ 100 mls/hr IVPB Q12 [facility] PRN Reason: Protocol Last Admin: 02/14/18 09:39 Dose: 100 mls/hr Dextrose/Sodium Chloride (Dextrose 5%/0.9% Ns 1000 Ml) 1,000 mls @ 50 mls/hr IV .Q20H [facility] Last Admin: 02/13/18 22:20 Dose: 50 mls/hr Pantoprazole Sodium (Protonix 40mg Ivpb) 40 mg in 100 mls @ 20 mls/hr IVPB .Q5H [facility] Last Admin: 02/14/18 10:00 Dose: 20 mls/hr Phenytoin 200 mg/ Sodium (Chloride) 54 mls @ 104 mls/hr IVPB Q12 [facility] Last Admin: 02/14/18 09:36 Dose: 104 mls/hr Valproate Sodium 1,500 mg/ (Sodium Chloride) 115 mls @ 92 mls/hr IVPB Q12 [facility] Last Admin: 02/14/18 09:37 Dose: 92 mls/hr Phenobarbital (Phenobarbital Inj) 50 mg IV Q6 [facility] Last Admin: 02/14/18 06:38 Dose: 50 mg - Labs Labs: 02/14/18 05:40 06/08/18 05:40 PT 12.0 SECONDS (9.4-12.5) 02/12/18 11:20 INR 1.04 (0.93-1.08) 02/12/18 11:20 APTT 31.3 Seconds (25.1-36.5) 02/12/18 11:20 - Constitutional Appears: No Acute Distress - Head Exam Head Exam: NORMAL INSPECTION - Eye Exam Pupil Exam: Fixed Additional comments: 3 mm - Neurological Exam Neuro motor strength exam: Left Upper Extremity: 0, Right Upper Extremity: 0, Left Lower Extremity: 0, Right Lower Extremity: 0 Additional comments: GCS-3T Assessment and Plan (1) Anoxic brain injury Assessment & Plan: Case discussed with Dr. Arias, continue all current medical regimen including AED and sedation. Recommend normothermic, keep head elevated at least 30 degrees, and treat any electrolyte abnormalities. Status: Acute
--- NOTE | 2018-02-14 13:48 | CP.PCM.PN ---
<Gale Rodriguez - Last Filed: 02/14/18 13:47> Subjective - Date & Time of Evaluation Date of Evaluation: 02/14/18 Time of Evaluation: 10:05 - Subjective Subjective: Seen and examined at the bedside earlier today, chart review. Family is at the bedside. Patient reported to have a small BM, no blood noted. Patient is on Jevity at 20 cc an hour, no reports of residual. Patient remains intubated and nonresponsive. Objective - Vital Signs/Intake and Output Vital Signs (last 24 hours): Temp Pulse Resp BP Pulse Ox 98.4 F 70 14 127/74 99 02/14/18 11:03 02/14/18 11:03 02/14/18 11:03 02/14/18 11:00 02/14/18 11:03 Intake and Output: 02/14/18 02/14/18 06:59 18:59 Intake Total 2262 0 Output Total 500 Balance 1762 0 - Medications Medications: Current Medications Artificial Tears (Artificial Tears Opht Oint) 0 gm OU Q6 [facility] Last Admin: 02/14/18 12:44 Dose: 1 applic Hydrocortisone Sodium Succinate (Solu-Cortef) 50 mg IVP Q8 [facility] Last Admin: 02/14/18 13:31 Dose: 50 mg Propofol (Diprivan) 1,000 mg in 100 mls @ 3 mls/hr IV .Q24H PRN; Protocol; 5 MCG/KG/MIN PRN Reason: TITRATE PER MD ORDER Last Titration: 02/14/18 08:35 Dose: 10 mcg/kg/min, 6 mls/hr NOREPINEPHRINE BIT/0.9 % NACL (Levophed 4 Mg/ 250 Ml Ns Premixed) 4 mg in 250 mls @ 15 mls/hr IV .[id number] PRN; Protocol; 4 MCG/MIN PRN Reason: TITRATE PER MD ORDER Last Titration: 02/14/18 07:25 Dose: 8 mcg/min, 30 mls/hr Vasopressin 20 units/ Sodium (Chloride) 101 mls @ 9.09 mls/hr IV .Q11H7M [facility]; 0.03 U/MIN PRN Reason: Protocol Last Admin: 02/14/18 13:28 Dose: Not Given Linezolid (Zyvox 600mg/300ml D5w) 600 mg in 300 mls @ 200 mls/hr IVPB Q12 [facility] PRN Reason: Protocol Stop: 02/18/18 10:01 Last Admin: 02/14/18 09:39 Dose: 200 mls/hr Midazolam 100 mg/100ml in NS (Midazolam 100 Mg/100ml In Ns) 100 mg in 100 mls @ 1 mls/hr IV .Q24H PRN; Protocol; 1 MG/HR PRN Reason: Agitation Last Titration: 02/12/18 14:04 Dose: 3 mg/hr, 3 mls/hr Levetiracetam 1,500 mg/ Sodium (Chloride) 115 mls @ 460 mls/hr IV Q12H [facility] Last Admin: 02/14/18 06:32 Dose: 460 mls/hr Aztreonam (Azactam 1 Gm) 100 mls @ 100 mls/hr IVPB Q8 [facility] PRN Reason: Protocol Stop: 02/17/18 11:31 Last Admin: 02/14/18 13:31 Dose: 100 mls/hr Doxycycline Hyclate 100 mg/ (Sodium Chloride) 100 mls @ 100 mls/hr IVPB Q12 [facility] PRN Reason: Protocol Last Admin: 02/14/18 09:39 Dose: 100 mls/hr Dextrose/Sodium Chloride (Dextrose 5%/0.9% Ns 1000 Ml) 1,000 mls @ 50 mls/hr IV .Q20H [facility] Last Admin: 02/13/18 22:20 Dose: 50 mls/hr Pantoprazole Sodium (Protonix 40mg Ivpb) 40 mg in 100 mls @ 20 mls/hr IVPB .Q5H [facility] Last Admin: 02/14/18 10:00 Dose: 20 mls/hr Phenytoin 200 mg/ Sodium (Chloride) 54 mls @ 104 mls/hr IVPB Q12 [facility] Last Admin: 02/14/18 09:36 Dose: 104 mls/hr Valproate Sodium 1,500 mg/ (Sodium Chloride) 115 mls @ 92 mls/hr IVPB Q12 [facility] Last Admin: 02/14/18 09:37 Dose: 92 mls/hr Phenobarbital (Phenobarbital Inj) 50 mg IV Q6 [facility] Last Admin: 02/14/18 12:42 Dose: 50 mg - Labs Labs: 02/14/18 05:40 02/14/18 05:40 PT 12.0 SECONDS (9.4-12.5) 02/12/18 11:20 INR 1.04 (0.93-1.08) 02/12/18 11:20 APTT 31.3 Seconds (25.1-36.5) 02/12/18 11:20 - Constitutional Appears: No Acute Distress - Eye Exam Eye Exam: absent: Scleral icterus - ENT Exam ENT Exam: Mucous Membranes Moist (intubated) - Respiratory Exam Respiratory Exam: Rhonchi, NORMAL BREATHING PATTERN. absent: Respiratory Distress - Cardiovascular Exam Cardiovascular Exam: +S1, +S2 - GI/Abdominal Exam GI & Abdominal Exam: Distended, Soft, Hypoactive Bowel Sounds. absent: Guarding , Tenderness, Organomegaly, Rebound - Extremities Exam Extremities Exam: Pedal Edema - Neurological Exam Neurological Exam: Altered - Skin Skin Exam: Dry, Warm Assessment and Plan - Assessment and Plan (Free Text) Assessment: Assessment: Cardiac Arrest s/p ROSC Shock (cardiogenic v. septic) on pressors and sedation Ventilator dependent respiratory failure secondary to acute on chronic CHF and aspiration pneumonia Anoxic encephalopathy GI bleed - limited and most likely lower GI bleed., differential rectal varices Seizures on EEG Hx of EtOH abuse with possible cirrhosis A.fib CHF with AICD and pacer HTN Chronic LE cellulitis ETOH abuse Plan: Hgb stable. Continue conservative management DC Protonix drip change to BID Ammonia is stable 11 currently anticoagulation on hold On Jevity at 20 cc/hr, monitor residual and BMs ID/pulmo/cardio FU Seen and reviewed with Dr. Garza. <Wendi Garza V - Last Filed: 02/15/18 00:22> Objective - Vital Signs/Intake and Output Vital Signs (last 24 hours): Temp Pulse Resp BP Pulse Ox 97.3 F L 70 14 111/66 99 02/14/18 18:00 02/14/18 18:00 02/14/18 11:03 02/14/18 18:00 02/14/18 18:00 Intake and Output: 02/14/18 02/15/18 18:59 06:59 Intake Total 2462 Output Total 500 Balance 1962 - Medications Medications: Current Medications Artificial Tears (Artificial Tears Opht Oint) 0 gm OU Q6 [facility] Last Admin: 02/15/18 00:11 Dose: 1 applic Doxycycline Hyclate (Doryx) 100 mg NG Q12 [facility] PRN Reason: Protocol Last Admin: 02/14/18 22:07 Dose: 100 mg Hydrocortisone Sodium Succinate (Solu-Cortef) 25 mg IVP Q8 [facility] Last Admin: 02/14/18 22:08 Dose: 25 mg Propofol (Diprivan) 1,000 mg in 100 mls @ 3 mls/hr IV .Q24H PRN; Protocol; 5 MCG/KG/MIN PRN Reason: TITRATE PER MD ORDER Last Titration: 02/14/18 08:35 Dose: 10 mcg/kg/min, 6 mls/hr Vasopressin 20 units/ Sodium (Chloride) 101 mls @ 9.09 mls/hr IV .Q11H7M [facility]; 0.03 U/MIN PRN Reason: Protocol Last Admin: 02/14/18 13:28 Dose: Not Given Midazolam 100 mg/100ml in NS (Midazolam 100 Mg/100ml In Ns) 100 mg in 100 mls @ 1 mls/hr IV .Q24H PRN; Protocol; 1 MG/HR PRN Reason: Agitation Last Admin: 02/15/18 00:12 Dose: 3 mg/hr, 3 mls/hr Levetiracetam 1,500 mg/ Sodium (Chloride) 115 mls @ 460 mls/hr IV Q12H [facility] Last Admin: 02/14/18 18:32 Dose: 460 mls/hr Aztreonam (Azactam 1 Gm) 100 mls @ 100 mls/hr IVPB Q8 [facility] PRN Reason: Protocol Stop: 02/17/18 11:31 Last Admin: 02/14/18 22:00 Dose: 100 mls/hr Dextrose/Sodium Chloride (Dextrose 5%/0.9% Ns 1000 Ml) 1,000 mls @ 50 mls/hr IV .Q20H [facility] Last Admin: 02/14/18 18:35 Dose: 50 mls/hr Phenytoin 200 mg/ Sodium (Chloride) 54 mls @ 104 mls/hr IVPB Q12 [facility] Last Admin: 02/14/18 22:05 Dose: 104 mls/hr Valproate Sodium 1,500 mg/ (Sodium Chloride) 115 mls @ 92 mls/hr IVPB Q12 [facility] Last Admin: 02/14/18 22:04 Dose: 92 mls/hr Norepinephrine Bitartrate 8 mg (/ Sodium Chloride) 500 mls @ 15 mls/hr IV .Q24H PRN; Protocol; 4 MCG/MIN PRN Reason: TITRATE PER MD ORDER Last Titration: 02/14/18 14:34 Dose: 10 mcg/min, 37.5 mls/hr Linezolid (Zyvox) 600 mg PO Q12 [facility] PRN Reason: Protocol Last Admin: 02/14/18 22:09 Dose: 600 mg Pantoprazole Sodium (Protonix Inj) 40 mg IVP Q12 [facility] Last Admin: 02/14/18 22:08 Dose: 40 mg Phenobarbital (Phenobarbital Inj) 50 mg IV Q6 [facility] Last Admin: 02/15/18 00:15 Dose: 50 mg - Labs Labs: 02/14/18 05:40 02/14/18 05:40 PT 12.0 SECONDS (9.4-12.5) 02/12/18 11:20 INR 1.04 (0.93-1.08) 02/12/18 11:20 APTT 31.3 Seconds (25.1-36.5) 02/12/18 11:20 Attending/Attestation - Attestation I have personally seen and examined this patient.: Yes I have fully participated in the care of the patient.: Yes I have reviewed all pertinent clinical information, including history, physical exam and plan: Yes Notes (Text): This is an addendum to GI progress report dictated by Gale Rodriguez APN.The patient was seen and examined earlier. Medical records, lab studies, imagings were reviewed. Last 24 hours events reviewed. Agreed with the above treatment plan as outlined in Gale Rodriguez APN's notes with the addition of the following 02/15/18 00:22
[2018-02-14] MEDS ORDERED: Norepinephrine 8 MG in Sodium Chloride 0.9% 500 ML IV PRN (13:49)
--- NOTE | 2018-02-14 14:45 | CP.PCM.PN ---
Subjective - Date & Time of Evaluation Date of Evaluation: 02/14/18 Time of Evaluation: 10:15 - Subjective Subjective: Still intubated, sedated, no fevers. Objective - Vital Signs/Intake and Output Vital Signs (last 24 hours): Temp Pulse Resp BP Pulse Ox 98.4 F 89 18 122/73 100 02/14/18 09:00 02/14/18 09:00 02/12/18 00:00 02/14/18 09:00 02/14/18 09:00 Intake and Output: 02/14/18 02/14/18 06:59 18:59 Intake Total 2262 0 Output Total 500 Balance 1762 0 - Medications Medications: Current Medications Artificial Tears (Artificial Tears Opht Oint) 0 gm OU Q6 [facility] Last Admin: 02/14/18 06:32 Dose: 1 applic Hydrocortisone Sodium Succinate (Solu-Cortef) 50 mg IVP Q8 [facility] Last Admin: 02/14/18 05:56 Dose: 50 mg Propofol (Diprivan) 1,000 mg in 100 mls @ 3 mls/hr IV .Q24H PRN; Protocol; 5 MCG/KG/MIN PRN Reason: TITRATE PER MD ORDER Last Titration: 02/14/18 08:35 Dose: 10 mcg/kg/min, 6 mls/hr NOREPINEPHRINE BIT/0.9 % NACL (Levophed 4 Mg/ 250 Ml Ns Premixed) 4 mg in 250 mls @ 15 mls/hr IV .[id number] PRN; Protocol; 4 MCG/MIN PRN Reason: TITRATE PER MD ORDER Last Titration: 02/14/18 07:25 Dose: 8 mcg/min, 30 mls/hr Vasopressin 20 units/ Sodium (Chloride) 101 mls @ 9.09 mls/hr IV .Q11H7M [facility]; 0.03 U/MIN PRN Reason: Protocol Last Admin: 02/13/18 05:58 Dose: Not Given Linezolid (Zyvox 600mg/300ml D5w) 600 mg in 300 mls @ 200 mls/hr IVPB Q12 [facility] PRN Reason: Protocol Stop: 02/18/18 10:01 Last Admin: 02/14/18 09:39 Dose: 200 mls/hr Midazolam 100 mg/100ml in NS (Midazolam 100 Mg/100ml In Ns) 100 mg in 100 mls @ 1 mls/hr IV .Q24H PRN; Protocol; 1 MG/HR PRN Reason: Agitation Last Titration: 02/12/18 14:04 Dose: 3 mg/hr, 3 mls/hr Levetiracetam 1,500 mg/ Sodium (Chloride) 115 mls @ 460 mls/hr IV Q12H [facility] Last Admin: 02/14/18 06:32 Dose: 460 mls/hr Aztreonam (Azactam 1 Gm) 100 mls @ 100 mls/hr IVPB Q8 [facility] PRN Reason: Protocol Stop: 02/17/18 11:31 Last Admin: 02/14/18 05:55 Dose: 100 mls/hr Doxycycline Hyclate 100 mg/ (Sodium Chloride) 100 mls @ 100 mls/hr IVPB Q12 [facility] PRN Reason: Protocol Last Admin: 02/14/18 09:39 Dose: 100 mls/hr Dextrose/Sodium Chloride (Dextrose 5%/0.9% Ns 1000 Ml) 1,000 mls @ 50 mls/hr IV .Q20H [facility] Last Admin: 02/13/18 22:20 Dose: 50 mls/hr Pantoprazole Sodium (Protonix 40mg Ivpb) 40 mg in 100 mls @ 20 mls/hr IVPB .Q5H [facility] Last Admin: 02/13/18 23:45 Dose: 20 mls/hr Phenytoin 200 mg/ Sodium (Chloride) 54 mls @ 104 mls/hr IVPB Q12 [facility] Last Admin: 02/14/18 09:36 Dose: 104 mls/hr Valproate Sodium 1,500 mg/ (Sodium Chloride) 115 mls @ 92 mls/hr IVPB Q12 [facility] Last Admin: 02/14/18 09:37 Dose: 92 mls/hr Phenobarbital (Phenobarbital Inj) 50 mg IV Q6 [facility] Last Admin: 02/14/18 06:38 Dose: 50 mg - Labs Labs: 02/14/18 05:40 02/14/18 05:40 PT 12.0 SECONDS (9.4-12.5) 02/12/18 11:20 INR 1.04 (0.93-1.08) 02/12/18 11:20 APTT 31.3 Seconds (25.1-36.5) 02/12/18 11:20 - Constitutional Appears: Chronically Ill - Head Exam Head Exam: NORMAL INSPECTION - ENT Exam Additional comments: ET tube in place - Respiratory Exam Respiratory Exam: Decreased Breath Sounds - Cardiovascular Exam Cardiovascular Exam: +S1, +S2 - GI/Abdominal Exam GI & Abdominal Exam: Soft. absent: Tenderness Assessment and Plan - Assessment and Plan (Free Text) Plan: Assessment Systemic Inflammatory response syndrome with hypotension after cardiac arrest, with ventilator-dependent respiratory failure and status epilepticus, consider severe sepsis / septic on top of cardiogenic shock from right sided HCAP / aspiration pneumonia on top of acute on chronic CHF history left leg skin and skin structure infection, growing Roultella and MSSA, clinically improving history of right leg skin and skin structure infection with Pseudomonas and MRSA HTN COPD S/P pacemaker placement chronic atrial fibrillation on anticoagulation S/P right knee replacement chronic CHF with dilated cardiomyopathy Plan on Zyvox day 7 and Azactam day [address] Arias since patient is continually seizing - will also continue Doxycycline day 5 and will follow up final culture results (so far negative) - target 4-7 days of therapy - may consider discontinuing antibiotics in the next 24-48 hours discussed previously with family that overall prognosis is poor and they understand
[2018-02-14] MEDS: Dextrose 5%/0.9% NS 1,000 ML IV SCH (18:35)
--- NOTE | 2018-02-14 22:37 | PN ---
DATE: 02/14/2018 SUBJECTIVE: Patient is 67 years old, seen and examined. He remained intubated, sedated. No corneal reflex noted. Pupillary reflex is negative. PHYSICAL EXAMINATION: VITAL SIGNS: Patient is afebrile, pulse 70, respirations 16, blood pressure 111/66. LUNGS: Bilateral fair airflow, a few soft crackle at bases. HEART: S1 and S2 audible. ABDOMEN: Soft, obese, nontender, no rebound, no guarding. NEUROLOGICAL: Patient is unresponsive, sedated. EXTREMITIES: Bilateral legs +4 edema. Right knee has abrasion and left riggins is in dressing. LABORATORY DATA: WBC 7.5, hemoglobin 12, hematocrit 37, platelets 191. Chemistry: Sodium 139, potassium 4, chloride 110, CO2 of 22, BUN 21, creatinine 0.9, blood sugar 124. Blood culture and urine culture are negative. Left leg has Xenia albicans. ASSESSMENT: 1. Status post cardiac arrest. 2. Anoxic encephalopathy. 3. Status epilepticus. 4. Bilateral leg cellulitis. 5. Respiratory failure. 6. History of defibrillator placement. PLAN: At this point, we are awaiting brain flow nuclear medicine study results. His prognosis is poor. does not want tracheostomy or PEG tube. She wants to wait till Saturday and will think of terminal extubation. Clif Lala MD
[2018-02-15] MEDS: Mineral Oil/Petrolatum Opht Oint(3.5 gm) OU SCH ×6 (00:11→18:22)
[2018-02-15] MEDS: Midazolam 100 mg/100ml in NS 100 MG/100 ML SOL IV PRN (00:12)
[2018-02-15] MEDS: PHENobarbital 130 mg/ml Inj Syringe IV SCH ×4 (00:15→21:15)
[2018-02-15] MEDS: Aztreonam 1 Gm in NS 100mL 100 ML IVPB SCH ×3 (05:21→21:17)
[2018-02-15 05:23] LABS: ARTERIAL BLOOD GAS HCO3 22.3 mmol/L (21-28); ARTERIAL BLOOD GAS HEMOGLOBIN 12.5 g/dL (11.7-17.4); ARTERIAL BLOOD GAS O2 CAPACITY 17.2 mL/dl (16-24); ARTERIAL BLOOD GAS O2 CONTENT 17.1 ML/dl (15-23); ARTERIAL BLOOD GAS O2 SAT 99.3 % (95-98); ARTERIAL BLOOD GAS PCO2 36 mm/Hg (35-45); ARTERIAL BLOOD GAS TCO2 23.4 mmol.L (22-28)
[2018-02-15 05:48] LABS: EOS % 0.1 % (1.5-5.0); GRAN # 8.43 (1.4-6.5); GRAN % 89.5 % (50.0-68.0); HEMOGLOBIN 11.9 g/dL (14.0-18.0); LYMPH # 0.6 (1.2-3.4); LYMPH % 5.8 % (22.0-35.0); MEAN CORPUSCULAR HEMOGLOBIN 29.9 pg (25.0-35.0); MEAN CORPUSCULAR HGB CONC 31.8 g/dl (31.0-37.0); MEAN PLATELET VOLUME 9.8 fl (7.0-11.0); MONO # 0.4 (0.1-0.6); MONO % 4.6 % (1.0-6.0); RBC 3.98 10^6/uL (3.5-6.1); RED CELL DISTRIBUTION WIDTH 19.7 % (11.5-14.5); WHITE BLOOD COUNT 9.4 10^3/ul (4.5-11.0)
[2018-02-15] MEDS: levETIRAcetam 1,500 MG in Sodium Chloride 0.9% 100 ML IV SCH ×2 (06:00→18:19)
[2018-02-15 06:21] LABS: ALB/GLOB RATIO 0.8 (1.1-1.8); ALBUMIN 1.7 g/dL (3.0-4.8); ALT/SGPT 28 U/L (7-56); AST/SGOT 19 U/L (17-59); BLOOD UREA NITROGEN 23 mg/dL (7-21); CALCIUM 7.5 mg/dL (8.4-10.5); GFR AFRICAN-AMERICAN > 60; GFR NON-AFRICAN AMERICAN > 60
--- NOTE | 2018-02-15 07:41 | CP.PCM.PN ---
Subjective - Date & Time of Evaluation Date of Evaluation: 02/15/18 Time of Evaluation: 07:00 - Subjective Subjective: Stable in ICU. Chart reviewed. No improvement in neuro status last 24 hrs. Family debating terminal extubation issue. V/S noted. V. Paced. 105/69 PE: Lungs: rhonchi Cor: S1S2 Abd.: soft Ext.: + edema and discoloration Neuro.: sedated, coma I/O= 3960/725 recorded Labs and ABGs noted: K+= 3.9 Stool + OB BC X2 NG at 5 days CXR noted: not read yet, no change by my interp. Objective - Vital Signs/Intake and Output Vital Signs (last 24 hours): Temp Pulse Resp BP Pulse Ox 97.0 F L 70 14 105/69 100 02/15/18 06:00 02/15/18 06:00 02/15/18 07:23 02/15/18 06:00 02/15/18 07:23 Intake and Output: 02/15/18 02/15/18 06:59 18:59 Intake Total 1498 Output Total 225 Balance 1273 - Medications Medications: Current Medications Artificial Tears (Artificial Tears Opht Oint) 0 gm OU Q6 [facility] Last Admin: 02/15/18 05:42 Dose: 1 applic Doxycycline Hyclate (Doryx) 100 mg NG Q12 [facility] PRN Reason: Protocol Last Admin: 02/14/18 22:07 Dose: 100 mg Hydrocortisone Sodium Succinate (Solu-Cortef) 25 mg IVP Q8 [facility] Last Admin: 02/15/18 05:24 Dose: 25 mg Propofol (Diprivan) 1,000 mg in 100 mls @ 3 mls/hr IV .Q24H PRN; Protocol; 5 MCG/KG/MIN PRN Reason: TITRATE PER MD ORDER Last Titration: 02/14/18 08:35 Dose: 10 mcg/kg/min, 6 mls/hr Vasopressin 20 units/ Sodium (Chloride) 101 mls @ 9.09 mls/hr IV .Q11H7M [facility]; 0.03 U/MIN PRN Reason: Protocol Last Admin: 02/14/18 13:28 Dose: Not Given Midazolam 100 mg/100ml in NS (Midazolam 100 Mg/100ml In Ns) 100 mg in 100 mls @ 1 mls/hr IV .Q24H PRN; Protocol; 1 MG/HR PRN Reason: Agitation Last Admin: 02/15/18 00:12 Dose: 3 mg/hr, 3 mls/hr Levetiracetam 1,500 mg/ Sodium (Chloride) 115 mls @ 460 mls/hr IV Q12H [facility] Last Admin: 02/15/18 06:00 Dose: 460 mls/hr Aztreonam (Azactam 1 Gm) 100 mls @ 100 mls/hr IVPB Q8 [facility] PRN Reason: Protocol Stop: 02/17/18 11:31 Last Admin: 02/15/18 05:21 Dose: 100 mls/hr Dextrose/Sodium Chloride (Dextrose 5%/0.9% Ns 1000 Ml) 1,000 mls @ 50 mls/hr IV .Q20H [facility] Last Admin: 02/14/18 18:35 Dose: 50 mls/hr Phenytoin 200 mg/ Sodium (Chloride) 54 mls @ 104 mls/hr IVPB Q12 [facility] Last Admin: 02/14/18 22:05 Dose: 104 mls/hr Valproate Sodium 1,500 mg/ (Sodium Chloride) 115 mls @ 92 mls/hr IVPB Q12 [facility] Last Admin: 02/14/18 22:04 Dose: 92 mls/hr Norepinephrine Bitartrate 8 mg (/ Sodium Chloride) 500 mls @ 15 mls/hr IV .Q24H PRN; Protocol; 4 MCG/MIN PRN Reason: TITRATE PER MD ORDER Last Titration: 02/14/18 14:34 Dose: 10 mcg/min, 37.5 mls/hr Linezolid (Zyvox) 600 mg PO Q12 [facility] PRN Reason: Protocol Last Admin: 02/14/18 22:09 Dose: 600 mg Pantoprazole Sodium (Protonix Inj) 40 mg IVP Q12 [facility] Last Admin: 02/14/18 22:08 Dose: 40 mg Phenobarbital (Phenobarbital Inj) 50 mg IV Q6 [facility] Last Admin: 02/15/18 05:23 Dose: 50 mg - Labs Labs: 02/15/18 05:30 02/15/18 05:30 PT 12.0 SECONDS (9.4-12.5) 02/12/18 11:20 INR 1.04 (0.93-1.08) 02/12/18 11:20 APTT 31.3 Seconds (25.1-36.5) 02/12/18 11:20 Assessment and Plan - Assessment and Plan (Free Text) Assessment: S/P cardiac arrest at home with prolonged down time Anoxic encephalopathy with seizures Acute on chronic kidney disease CCM, severe, etoh related Chronic CHF Bilat. LE cellulitis and non-healing wound LLE ICD/NSVT Prostate cancer, seed implants Right TKR Chronic ETOH, recently stopped 12/25 Former Smoker Plan: Continue support. DNR/DNI noted. Family discussing terminal extubation. As per Neuro., Intensivists, Dr. Mccormack, GI, Palliative Care, ID Monitor: labs, I/O, sats., neuro status, etc. Will follow Poor prognosis for neuro recovery noted.
--- NOTE | 2018-02-15 09:17 | RAD ---
HISTORY: intubated COMPARISON: 02/14/2018 FINDINGS: LUNGS: No active pulmonary disease. PLEURA: No significant pleural effusion identified, no pneumothorax apparent. CARDIOVASCULAR: There is moderate to severe cardiomegaly and severe vascular congestion. Findings are unchanged. Central lines and tubes unchanged OSSEOUS STRUCTURES: No significant abnormalities. VISUALIZED UPPER ABDOMEN: Normal. OTHER FINDINGS: None. IMPRESSION: There is moderate to severe cardiomegaly and severe vascular congestion. Findings are unchanged. Central lines and tubes unchanged
[2018-02-15] MEDS: Valproate 1,500 MG in Sodium Chloride 0.9% 100 ML IVPB SCH ×2 (09:51→22:30)
--- NOTE | 2018-02-15 11:38 | CP.PCM.PN ---
Subjective - Date & Time of Evaluation Date of Evaluation: 02/15/18 Time of Evaluation: 07:15 - Subjective Subjective: Pt seen and examined, remains intubated, no response to painful verbal stimuli, does not overbreath the ventilator. Objective - Vital Signs/Intake and Output Vital Signs (last 24 hours): Temp Pulse Resp BP Pulse Ox 97.0 F L 70 14 95/67 L 98 02/15/18 11:00 02/15/18 11:00 02/15/18 07:23 02/15/18 11:00 02/15/18 11:00 Intake and Output: 02/15/18 02/15/18 06:59 18:59 Intake Total 1498 272 Output Total 225 Balance 1273 272 - Medications Medications: Current Medications Artificial Tears (Artificial Tears Opht Oint) 0 gm OU Q6 [facility] Last Admin: 02/15/18 05:42 Dose: 1 applic Doxycycline Hyclate (Doryx) 100 mg NG Q12 [facility] PRN Reason: Protocol Last Admin: 02/15/18 09:51 Dose: 100 mg Hydrocortisone Sodium Succinate (Solu-Cortef) 25 mg IVP Q8 [facility] Last Admin: 02/15/18 05:24 Dose: 25 mg Propofol (Diprivan) 1,000 mg in 100 mls @ 3 mls/hr IV .Q24H PRN; Protocol; 5 MCG/KG/MIN PRN Reason: TITRATE PER MD ORDER Last Titration: 02/14/18 08:35 Dose: 10 mcg/kg/min, 6 mls/hr Vasopressin 20 units/ Sodium (Chloride) 101 mls @ 9.09 mls/hr IV .Q11H7M [facility]; 0.03 U/MIN PRN Reason: Protocol Last Admin: 02/14/18 13:28 Dose: Not Given Midazolam 100 mg/100ml in NS (Midazolam 100 Mg/100ml In Ns) 100 mg in 100 mls @ 1 mls/hr IV .Q24H PRN; Protocol; 1 MG/HR PRN Reason: Agitation Last Admin: 02/15/18 00:12 Dose: 3 mg/hr, 3 mls/hr Levetiracetam 1,500 mg/ Sodium (Chloride) 115 mls @ 460 mls/hr IV Q12H [facility] Last Admin: 02/15/18 06:00 Dose: 460 mls/hr Aztreonam (Azactam 1 Gm) 100 mls @ 100 mls/hr IVPB Q8 [facility] PRN Reason: Protocol Stop: 02/17/18 11:31 Last Admin: 02/15/18 05:21 Dose: 100 mls/hr Dextrose/Sodium Chloride (Dextrose 5%/0.9% Ns 1000 Ml) 1,000 mls @ 50 mls/hr IV .Q20H [facility] Last Admin: 02/14/18 18:35 Dose: 50 mls/hr Phenytoin 200 mg/ Sodium (Chloride) 54 mls @ 104 mls/hr IVPB Q12 [facility] Last Admin: 02/15/18 10:04 Dose: 104 mls/hr Valproate Sodium 1,500 mg/ (Sodium Chloride) 115 mls @ 92 mls/hr IVPB Q12 [facility] Last Admin: 02/15/18 09:51 Dose: 92 mls/hr Norepinephrine Bitartrate 8 mg (/ Sodium Chloride) 500 mls @ 15 mls/hr IV .Q24H PRN; Protocol; 4 MCG/MIN PRN Reason: TITRATE PER MD ORDER Last Titration: 02/15/18 09:05 Dose: 14 mcg/min, 52.5 mls/hr Linezolid (Zyvox) 600 mg PO Q12 [facility] PRN Reason: Protocol Last Admin: 02/15/18 09:51 Dose: 600 mg Pantoprazole Sodium (Protonix Inj) 40 mg IVP Q12 [facility] Last Admin: 02/15/18 09:51 Dose: 40 mg Phenobarbital (Phenobarbital Inj) 50 mg IV Q6 [facility] Last Admin: 02/15/18 05:23 Dose: 50 mg - Labs Labs: 02/15/18 05:30 02/15/18 05:30 PT 12.0 SECONDS (9.4-12.5) 02/12/18 11:20 INR 1.04 (0.93-1.08) 02/12/18 11:20 APTT 31.3 Seconds (25.1-36.5) 02/12/18 11:20 - Constitutional Appears: Non-toxic, No Acute Distress, Older Than Stated Age, Chronically Ill - Head Exam Head Exam: NORMOCEPHALIC - ENT Exam ENT Exam: Mucous Membranes Moist - Respiratory Exam Respiratory Exam: Clear to Ausculation Bilateral, NORMAL BREATHING PATTERN - Cardiovascular Exam Cardiovascular Exam: REGULAR RHYTHM, +S1, +S2 - GI/Abdominal Exam GI & Abdominal Exam: Soft, Normal Bowel Sounds - Extremities Exam Extremities Exam: Pedal Edema - Neurological Exam Additional comments: no response to verbal painful stimuli, does not overbreath the ventilator Assessment and Plan - Assessment and Plan (Free Text) Assessment: Patient is 67yo male with PMHx HTN, paroxysmal A-fib (on Eliquis), cardiomyopathy (s/p AICD), recent lower extremity cellulitis growing MRSA and pseudomonas, and ETOH abuse being admitted to the ICU s/p cardiac arrest s/p ROSC s/p hypothermic protocol. Currently intubated, off sedation, with persistent seizures, had been on phenobarb coma Neurology following. Patient sustained extensive anoxic brain injury, brain flow done, no flow (prelim read), official read pending Currently on vasopressor support. Cardiology following. Patient on Valproate, Keppra, Versed, Ativan. Pt is DNR/DNI Afib Cardiomyopathy s/p AICD s/p Cardiac Arrest s/p ROSC Status Epilpeticus Anoxic brain injury PNA Pulm edema Recommend: - cont with vent support, low tidal vol ventilation - Abx as per ID, follow up cultures - Vasopressor support - follow up cardiology - goal MAP 65 - monitor HH - FS control, maintain euthermia - AEDs as per neurology - EEG follow up - brain flow read follow up - palliative care follow up - GI ppx - DVT ppx, HSQ - Monitor in MICU - family considering terminal extubation Overall prognosis extremely poor DNR/DNI Critical care time 30 minutes
[2018-02-15] MEDS: Propofol 10 mg/ml 1,000 MG/100 ML VIAL IV PRN (13:37)
--- NOTE | 2018-02-15 14:23 | CP.PCM.PN ---
Subjective - Date & Time of Evaluation Date of Evaluation: 02/15/18 Time of Evaluation: 11:00 - Subjective Subjective: Patient continues to be on the ventilator, no fevers, poorly responsive. Objective - Vital Signs/Intake and Output Vital Signs (last 24 hours): Temp Pulse Resp BP Pulse Ox 97.0 F L 70 14 105/69 100 02/15/18 06:00 02/15/18 06:00 02/15/18 07:23 02/15/18 06:00 02/15/18 07:23 Intake and Output: 02/15/18 02/15/18 06:59 18:59 Intake Total 1498 272 Output Total 225 Balance 1273 272 - Medications Medications: Current Medications Artificial Tears (Artificial Tears Opht Oint) 0 gm OU Q6 KELLY Last Admin: 02/15/18 05:42 Dose: 1 applic Doxycycline Hyclate (Doryx) 100 mg NG Q12 KELLY PRN Reason: Protocol Last Admin: 02/15/18 09:51 Dose: 100 mg Hydrocortisone Sodium Succinate (Solu-Cortef) 25 mg IVP Q8 KELLY Last Admin: 02/15/18 05:24 Dose: 25 mg Propofol (Diprivan) 1,000 mg in 100 mls @ 3 mls/hr IV .Q24H PRN; Protocol; 5 MCG/KG/MIN PRN Reason: TITRATE PER MD ORDER Last Titration: 02/14/18 08:35 Dose: 10 mcg/kg/min, 6 mls/hr Vasopressin 20 units/ Sodium (Chloride) 101 mls @ 9.09 mls/hr IV .Q11H7M KELLY; 0.03 U/MIN PRN Reason: Protocol Last Admin: 02/14/18 13:28 Dose: Not Given Midazolam 100 mg/100ml in NS (Midazolam 100 Mg/100ml In Ns) 100 mg in 100 mls @ 1 mls/hr IV .Q24H PRN; Protocol; 1 MG/HR PRN Reason: Agitation Last Admin: 02/15/18 00:12 Dose: 3 mg/hr, 3 mls/hr Levetiracetam 1,500 mg/ Sodium (Chloride) 115 mls @ 460 mls/hr IV Q12H KELLY Last Admin: 02/15/18 06:00 Dose: 460 mls/hr Aztreonam (Azactam 1 Gm) 100 mls @ 100 mls/hr IVPB Q8 [facility] PRN Reason: Protocol Stop: 02/17/18 11:31 Last Admin: 02/15/18 05:21 Dose: 100 mls/hr Dextrose/Sodium Chloride (Dextrose 5%/0.9% Ns 1000 Ml) 1,000 mls @ 50 mls/hr IV .Q20H [facility] Last Admin: 02/14/18 18:35 Dose: 50 mls/hr Phenytoin 200 mg/ Sodium (Chloride) 54 mls @ 104 mls/hr IVPB Q12 [facility] Last Admin: 02/15/18 10:04 Dose: 104 mls/hr Valproate Sodium 1,500 mg/ (Sodium Chloride) 115 mls @ 92 mls/hr IVPB Q12 [facility] Last Admin: 02/15/18 09:51 Dose: 92 mls/hr Norepinephrine Bitartrate 8 mg (/ Sodium Chloride) 500 mls @ 15 mls/hr IV .Q24H PRN; Protocol; 4 MCG/MIN PRN Reason: TITRATE PER MD ORDER Last Titration: 02/15/18 09:05 Dose: 14 mcg/min, 52.5 mls/hr Linezolid (Zyvox) 600 mg PO Q12 [facility] PRN Reason: Protocol Last Admin: 02/15/18 09:51 Dose: 600 mg Pantoprazole Sodium (Protonix Inj) 40 mg IVP Q12 [facility] Last Admin: 02/15/18 09:51 Dose: 40 mg Phenobarbital (Phenobarbital Inj) 50 mg IV Q6 [facility] Last Admin: 02/15/18 05:23 Dose: 50 mg - Labs Labs: 02/15/18 05:30 02/15/18 05:30 PT 12.0 SECONDS (9.4-12.5) 02/12/18 11:20 INR 1.04 (0.93-1.08) 02/12/18 11:20 APTT 31.3 Seconds (25.1-36.5) 02/12/18 11:20 - Constitutional Appears: Chronically Ill, Other (intubated, poorly responsive) - ENT Exam Additional comments: ET tube in place - Respiratory Exam Respiratory Exam: Decreased Breath Sounds - Cardiovascular Exam Cardiovascular Exam: +S1, +S2 - GI/Abdominal Exam GI & Abdominal Exam: Soft. absent: Tenderness Assessment and Plan - Assessment and Plan (Free Text) Plan: Assessment Systemic Inflammatory response syndrome with hypotension after cardiac arrest, with ventilator-dependent respiratory failure and status epilepticus, consider severe sepsis / septic on top of cardiogenic shock from right sided HCAP / aspiration pneumonia on top of acute on chronic CHF history left leg skin and skin structure infection, growing Roultella and MSSA, clinically improving history of right leg skin and skin structure infection with Pseudomonas and MRSA HTN COPD S/P pacemaker placement chronic atrial fibrillation on anticoagulation S/P right knee replacement chronic CHF with dilated cardiomyopathy Plan on Zyvox day 8 and Azactam day [address] Arias since patient is continually seizing - will also continue Doxycycline day 6 and will follow up final culture results (so far negative) - target 4-7 days of therapy - will consider discontinuing antibiotics in the next 24-48 hours overall prognosis remains poor
[2018-02-15] MEDS: Dextrose 5%/0.9% NS 1,000 ML IV SCH (18:21)
[2018-02-15] MEDS ORDERED: Phenytoin 100 mg/2 ml Inj ONE (21:14)
--- NOTE | 2018-02-15 23:20 | PN ---
DATE: 02/15/2018 SUBJECTIVE: Patient is 67 years old, seen and examined. He remained intubated, sedated, unresponsive, on pressors and IV antibiotics and IV fluids. PHYSICAL EXAMINATION: VITAL SIGNS: He is afebrile, pulse 73, respirations 25, blood pressure 105/62. LUNGS: Bilateral fair airflow, no rhonchi or crackle. HEART: S1 and S2 audible. ABDOMEN: Soft, obese, nontender. EXTREMITIES: He has bilateral legs +4 edema. NEUROLOGICAL: He is unresponsive LABORATORY DATA: WBC is 9.4, hemoglobin 11.9, hematocrit 37.4, platelet 165. PT 12, INR 1.04. Chemistry: Sodium 141, potassium 3.9, chloride 110, CO2 of 25, BUN 23, creatinine 0.9, blood sugar of 119. ASSESSMENT AND PLAN: 1. Respiratory failure. 2. Sepsis. 3. Status post cardiac arrest. 4. Anoxic encephalopathy. 5. Hypotension. 6. Status epilepticus. PLAN: family, especially is aware and she does not want terminal extubation until Saturday. Clif Lala MD
[2018-02-16] MEDS: Mineral Oil/Petrolatum Opht Oint(3.5 gm) OU SCH ×3 (00:30→14:06)
[2018-02-16] MEDS: PHENobarbital 130 mg/ml Inj Syringe IV SCH ×3 (01:01→14:00)
[2018-02-16] MEDS: Propofol 10 mg/ml 1,000 MG/100 ML VIAL IV PRN (03:03)
--- NOTE | 2018-02-16 06:00 | CP.PCM.PN ---
Subjective - Date & Time of Evaluation Date of Evaluation: 02/16/18 Time of Evaluation: 06:00 - Subjective Subjective: Mr. Rajput was seen and examined at the bedside in ICU. He remains on mechanical ventilator PRVC mode, not breathing over the set vent. settings, with no corneal reflex, sluggish reaction of the pupil in the right eye, no gag reflex, GCS-3T. Currently receiving propofol and midazolam for sedation and a vasopressor for blood pressure support. Bilateral upper and lower extremities swollen.Family at bedside.There was no untoward events overnight. Objective - Vital Signs/Intake and Output Vital Signs (last 24 hours): Temp Pulse Resp BP Pulse Ox 98.4 F 79 14 108/59 L 98 02/16/18 04:00 02/16/18 04:00 02/15/18 07:23 02/16/18 04:00 02/16/18 04:00 Intake and Output: 02/15/18 02/16/18 18:59 06:59 Intake Total 2622 115 Output Total 350 Balance 2272 115 - Medications Medications: Current Medications Artificial Tears (Artificial Tears Opht Oint) 0 gm OU Q6 KELLY Last Admin: 02/16/18 00:30 Dose: 2 applic Doxycycline Hyclate (Doryx) 100 mg NG Q12 KELLY PRN Reason: Protocol Last Admin: 02/15/18 22:32 Dose: 100 mg Hydrocortisone Sodium Succinate (Solu-Cortef) 25 mg IVP Q8 KELLY Last Admin: 02/15/18 21:28 Dose: 25 mg Propofol (Diprivan) 1,000 mg in 100 mls @ 3 mls/hr IV .Q24H PRN; Protocol; 5 MCG/KG/MIN PRN Reason: TITRATE PER MD ORDER Last Admin: 02/16/18 03:03 Dose: 10 mcg/kg/min, 6 mls/hr Vasopressin 20 units/ Sodium (Chloride) 101 mls @ 9.09 mls/hr IV .Q11H7M KELLY; 0.03 U/MIN PRN Reason: Protocol Last Admin: 02/15/18 23:43 Dose: Not Given Midazolam 100 mg/100ml in NS (Midazolam 100 Mg/100ml In Ns) 100 mg in 100 mls @ 1 mls/hr IV .Q24H PRN; Protocol; 1 MG/HR PRN Reason: Agitation Last Admin: 02/15/18 00:12 Dose: 3 mg/hr, 3 mls/hr Levetiracetam 1,500 mg/ Sodium (Chloride) 115 mls @ 460 mls/hr IV Q12H [facility] Last Admin: 02/15/18 18:19 Dose: 460 mls/hr Aztreonam (Azactam 1 Gm) 100 mls @ 100 mls/hr IVPB Q8 [facility] PRN Reason: Protocol Stop: 02/17/18 11:31 Last Admin: 02/15/18 21:17 Dose: 100 mls/hr Dextrose/Sodium Chloride (Dextrose 5%/0.9% Ns 1000 Ml) 1,000 mls @ 50 mls/hr IV .Q20H [facility] Last Admin: 02/15/18 18:21 Dose: 50 mls/hr Phenytoin 200 mg/ Sodium (Chloride) 54 mls @ 104 mls/hr IVPB Q12 [facility] Last Admin: 02/15/18 21:45 Dose: 104 mls/hr Valproate Sodium 1,500 mg/ (Sodium Chloride) 115 mls @ 92 mls/hr IVPB Q12 [facility] Last Admin: 02/15/18 22:30 Dose: 92 mls/hr Norepinephrine Bitartrate 8 mg (/ Sodium Chloride) 500 mls @ 15 mls/hr IV .Q24H PRN; Protocol; 4 MCG/MIN PRN Reason: TITRATE PER MD ORDER Last Titration: 02/16/18 03:07 Dose: 15 mcg/min, 56.25 mls/hr Linezolid (Zyvox) 600 mg PO Q12 [facility]LLY PRN Reason: Protocol Last Admin: 02/15/18 22:32 Dose: 600 mg Pantoprazole Sodium (Protonix Inj) 40 mg IVP Q12 [facility] Last Admin: 02/15/18 21:28 Dose: 40 mg Phenobarbital (Phenobarbital Inj) 50 mg IV Q6 KELLY Last Admin: 02/16/18 01:01 Dose: 50 mg - Labs Labs: 02/15/18 05:30 02/15/18 05:30 PT 12.0 SECONDS (9.4-12.5) 02/12/18 11:20 INR 1.04 (0.93-1.08) 02/12/18 11:20 APTT 31.3 Seconds (25.1-36.5) 02/12/18 11:20 - Constitutional Appears: No Acute Distress - Head Exam Head Exam: NORMAL INSPECTION - Eye Exam Additional comments: sluggish reaction in his right eye - Neurological Exam Neuro motor strength exam: Left Upper Extremity: 0, Right Upper Extremity: 0, Left Lower Extremity: 0, Right Lower Extremity: 0 Additional comments: GCS- 3T Assessment and Plan (1) Anoxic brain injury Assessment & Plan: Case discussed with Dr. Arias, continue all current medical regimen including AED and sedation. Recommend to repeat EEG on saturday. Recommend normothermic, keep head elevated at least 30 degrees, and treat any electrolyte abnormalities. Status: Acute
[2018-02-16] MEDS: Aztreonam 1 Gm in NS 100mL 100 ML IVPB SCH ×2 (06:13→14:01)
[2018-02-16 06:19] LABS: ARTERIAL BLOOD GAS HCO3 17.2 mmol/L (21-28); ARTERIAL BLOOD GAS HEMOGLOBIN 11.8 g/dL (11.7-17.4); ARTERIAL BLOOD GAS O2 CAPACITY 16.1 mL/dl (16-24); ARTERIAL BLOOD GAS O2 CONTENT 15.8 ML/dl (15-23); ARTERIAL BLOOD GAS O2 SAT 97.9 % (95-98); ARTERIAL BLOOD GAS PCO2 29 mm/Hg (35-45); ARTERIAL BLOOD GAS PH 7.38 (7.35-7.45); ARTERIAL BLOOD GAS TCO2 18.1 mmol.L (22-28)
[2018-02-16] MEDS: levETIRAcetam 1,500 MG in Sodium Chloride 0.9% 100 ML IV SCH (06:24)
[2018-02-16 06:26] LABS: BASO # 0.01 K/mm3 (0.0-2.0); BASO % 0.1 % (0.0-3.0); EOS % 0.1 % (1.5-5.0); GRAN # 8.54 (1.4-6.5); GRAN % 86.9 % (50.0-68.0); HEMOGLOBIN 12.7 g/dL (14.0-18.0); LYMPH # 0.7 (1.2-3.4); LYMPH % 7.1 % (22.0-35.0); MEAN CELL VOLUME 94.5 fl (80.0-105.0); MEAN CORPUSCULAR HEMOGLOBIN 30.1 pg (25.0-35.0); MEAN CORPUSCULAR HGB CONC 31.8 g/dl (31.0-37.0); MEAN PLATELET VOLUME 10.5 fl (7.0-11.0); MONO # 0.6 (0.1-0.6); MONO % 5.8 % (1.0-6.0); RBC 4.22 10^6/uL (3.5-6.1); RED CELL DISTRIBUTION WIDTH 19.9 % (11.5-14.5); WHITE BLOOD COUNT 9.8 10^3/ul (4.5-11.0)
--- NOTE | 2018-02-16 06:38 | CP.CCUPN ---
<Mary Cervantes - Last Filed: 02/16/18 12:38> CCU Subjective - Physician Review Subjective (Free Text): 02/10/18 11:49 PGY-[address] Hill EEG done today, showed seizure. Family meeting with Dr. Hill and Dr Arias. Family agrees to DNR.DNI Started pheobarb 02/11/18 10:25 No shaking observe. No acute event overnight 02/12/18 12:35 3 large dark BM. (+) heme occult. H/H stable On phenobarb induced coma, wean off propofol and midazolam. saw seizure. will do stat eeg 02/13/18 12:02 Occasional shakes this AM. No dark BM today Last night, rhythmic twitiching b/l eyelids post 02/16/18 11:01 No event reported per RN Plan to terminal extubate tomorrow CCU Objective - Vital Signs / Intake & Output Vital Signs (Last 4 hours): Vital Signs Temp Pulse BP Pulse Ox 02/16/18 04:00 98.4 F 79 108/59 L 98 02/16/18 03:00 98.4 F 85 109/71 98 Intake and Output (Last 8hrs): Intake & Output 02/15/18 02/15/18 02/16/18 14:59 22:59 06:59 Intake Total 470 2152 115 Output Total 350 Balance 470 1802 115 Intake: IV 470 1812 115 Right Internal Jugular 1812 Tube Feeding 340 Output: Urine 50 Urethral (Renteria) 50 Other 300 Other: # Bowel Movements 0 - Physical Exam Head: Positive for: Atraumatic, Normocephalic Pupils: Positive for: Other (fixed dilated) Extroacular Muscles: Positive for: EOMI Conjunctiva: Positive for: Normal Mouth: Positive for: Moist Mucous Membranes Neck: Positive for: Normal Range of Motion Respiratory/Chest: Positive for: Good Air Exchange. Negative for: Respiratory Distress, Accessory Muscle Use, Decreased Breath Sounds (coarse breath sound), Rales, Rhonchi Cardiovascular: Positive for: Regular Rate and Rhythm, Normal S1, S2. Negative for: Murmurs Abdomen: Negative for: Tenderness, Distention, Peritoneal Signs, Rebound, Guarding Back: Positive for: Normal Inspection Upper Extremity: Positive for: Normal Inspection. Negative for: Cyanosis, Edema Lower Extremity: Positive for: Normal Inspection. Negative for: Edema Neurological: Positive for: GCS=15, CN II-XII Intact, Other (intubated, no w/d to pain ) Skin: Positive for: Warm, Dry, Normal Color. Negative for: Rashes Psychiatric: Positive for: Normal Insight, Normal Concentration - Medications Active Medications: Active Medications Generic Name Dose Route Start Last Admin Trade Name Freq PRN Reason Stop Dose Admin Artificial Tears 0 gm 02/08/18 18:30 02/16/18 00:30 Artificial Tears Opht Oint OU 2 applic Q6 KELLY Administration Doxycycline Hyclate 100 mg 02/14/18 22:00 02/15/18 22:32 Doryx NG 100 mg Q12 KELLY Administration Protocol Hydrocortisone Sodium Succinate 25 mg 02/14/18 17:12 02/15/18 21:28 Solu-Cortef IVP 25 mg Q8 KELLY Administration Propofol 1,000 mg in 100 mls @ 3 mls/hr 02/07/18 21:17 02/16/18 03:03 Diprivan IV 10 mcg/kg/min .Q24H PRN 6 mls/hr TITRATE PER MD ORDER Administration Protocol 5 MCG/KG/MIN Vasopressin 20 units/ Sodium 101 mls @ 9.09 mls/hr 02/09/18 00:00 02/15/18 23 :43 Chloride IV Not Given .Q11H7M KLELY Protocol 0.03 U/MIN Midazolam 100 mg/100ml in NS 100 mg in 100 mls @ 1 mls/hr 02/09/18 11:13 05/27 00:12 Midazolam 100 Mg/100ml In Ns IV 3 mg/hr .Q24H PRN 3 mls/hr Agitation Administration Protocol 1 MG/HR Levetiracetam 1,500 mg/ Sodium 115 mls @ 460 mls/hr 02/10/18 18:00 02/15/18 18:19 Chloride IV 460 mls/hr Q12H KELLY Administration Aztreonam 100 mls @ 100 mls/hr 02/10/18 11:30 02/15/18 21:17 Azactam 1 Gm IVPB 02/17/18 11:31 100 mls/hr Q8 KELLY Administration Protocol Dextrose/Sodium Chloride 1,000 mls @ 50 mls/hr 02/11/18 10:27 02/15/18 18:21 Dextrose 5%/0.9% Ns 1000 Ml IV 50 mls/hr .Q20H KELLY Administration Phenytoin 200 mg/ Sodium 54 mls @ 104 mls/hr 02/13/18 10:00 02/15/18 21:45 Chloride IVPB 104 mls/hr Q12 KELLY Administration Valproate Sodium 1,500 mg/ 115 mls @ 92 mls/hr 02/13/18 03:51 02/15/18 22:30 Sodium Chloride IVPB 92 mls/hr Q12 KELLY Administration Norepinephrine Bitartrate 8 mg 500 mls @ 15 mls/hr 02/14/18 13:50 02/16/18 03 :07 / Sodium Chloride IV 15 mcg/min .Q24H PRN 56.25 mls/hr TITRATE PER MD ORDER Titration Protocol 4 MCG/MIN Linezolid 600 mg 02/14/18 22:00 02/15/18 22:32 Zyvox PO 600 mg Q12 KELLY Administration Protocol Pantoprazole Sodium 40 mg 02/14/18 22:00 02/15/18 21:28 Protonix Inj IVP 40 mg Q12 KELLY Administration Phenobarbital 50 mg 02/10/18 18:00 02/16/18 01:01 Phenobarbital Inj IV 50 mg Q6 KELLY Administration - Patient Studies Lab Studies: Lab Studies 02/16/18 02/16/18 02/15/18 Range/Units 05:50 00:30 18:26 POC Glucose (mg/dL) 100 112 H 100 (65-110) mg/dL 02/15/18 Range/Units 12:20 POC Glucose (mg/dL) 119 H (65-110) mg/dL Laboratory Results - last 24 hr 02/15/18 02/15/18 02/16/18 12:20 18:26 00:30 POC Glucose (mg/dL) 119 H 100 112 H 02/16/18 05:50 POC Glucose (mg/dL) 100 Fingerstick Blood Sugar Results: 112 Assessment/Plan - Assessment and Plan (Free Text) Plan: Mr Suárez, 67yo male with PMHx HTN, paroxysmal A-fib (on Eliquis), cardiomyopathy (s/p AICD), recent lower extremity cellulitis growing MRSA and pseudomonas, and ETOH abuse being admitted to the ICU s/p cardiac arrest s/p ROSC s/p hypothermic protocol. Currently intubated, off sedation, with persistent seizures, had been on phenobarb coma Neurology following. Patient sustained extensive anoxic brain injury, brain flow done, (+) flow Currently on vasopressor support. Cardiology following. Patient on Valproate, Keppra, Versed, Ativan. Pt is DNR/DNI Afib Cardiomyopathy s/p AICD cardiogenic shock vs septic shock, s/p Cardiac Arrest s/p ROSC Status Epilpeticus Anoxic brain injury PNA Pulm edema Recommend: - cont with vent support, low tidal vol ventilation - Abx = aztreonam, doxy, zyvox, solucortef taper to 25 BID - 4 AEFs = Keppra 1500 q12, Dilantin 200 Q12, Valproate 1500 Q12, Phenobarbital - 2 sedatives = Versed 3, Propofol 10 - Pressor = Levo 15 - Protonix Q12 - follow up cardiology - goal MAP 65 - monitor HH - FS control, maintain euthermia - EEG #3 follow up - palliative care follow up - GI ppx - DVT ppx, HSQ - Monitor in MICU - family considering terminal extubation Overall prognosis extremely poor DNR/DNI s/r/d/w Dr. Hill <Osmin Hill - Last Filed: 02/16/18 12:58> CCU Objective - Vital Signs / Intake & Output Vital Signs (Last 4 hours): Vital Signs Temp Pulse Resp BP Pulse Ox 02/16/18 12:00 98.4 F 84 14 102/71 98 Intake and Output (Last 8hrs): Intake & Output 02/15/18 02/16/18 02/16/18 22:59 06:59 14:59 Intake Total 2152 1694 585 Output Total 350 20 Balance 1802 1674 585 Intake: IV 1812 1014 585 Right Internal Jugular 1812 550 levophed 250 propofol 66 versed 33 Tube Feeding 340 280 Other 400 Output: Urine 50 20 Urethral (Renteria) 50 20 Other 300 Other: # Bowel Movements 0 0 - Medications Active Medications: Active Medications Generic Name Dose Route Start Last Admin Trade Name Freq PRN Reason Stop Dose Admin Artificial Tears 0 gm 02/08/18 18:30 02/16/18 06:15 Artificial Tears Opht Oint OU 2 applic Q6 KELLY Administration Doxycycline Hyclate 100 mg 02/14/18 22:00 02/16/18 09:51 Doryx NG 100 mg Q12 KELLY Administration Protocol Hydrocortisone Sodium Succinate 25 mg 02/14/18 17:12 02/16/18 06:40 Solu-Cortef IVP 25 mg Q8 KELLY Administration Propofol 1,000 mg in 100 mls @ 3 mls/hr 02/07/18 21:17 02/16/18 03:03 Diprivan IV 10 mcg/kg/min .Q24H PRN 6 mls/hr TITRATE PER MD ORDER Administration Protocol 5 MCG/KG/MIN Vasopressin 20 units/ Sodium 101 mls @ 9.09 mls/hr 02/09/18 00:00 02/15/18 23 :43 Chloride IV Not Given .Q11H7M KELLY Protocol 0.03 U/MIN Midazolam 100 mg/100ml in NS 100 mg in 100 mls @ 1 mls/hr 02/09/18 11:13 06/26 09:44 Midazolam 100 Mg/100ml In Ns IV 3 mg/hr .Q24H PRN 3 mls/hr Agitation Administration Protocol 1 MG/HR Levetiracetam 1,500 mg/ Sodium 115 mls @ 460 mls/hr 02/10/18 18:00 02/16/18 06:24 Chloride IV 460 mls/hr Q12H KELLY Administration Aztreonam 100 mls @ 100 mls/hr 02/10/18 11:30 02/16/18 06:13 Azactam 1 Gm IVPB 02/17/18 11:31 100 mls/hr Q8 KELLY Administration Protocol Dextrose/Sodium Chloride 1,000 mls @ 50 mls/hr 02/11/18 10:27 02/15/18 18:21 Dextrose 5%/0.9% Ns 1000 Ml IV 50 mls/hr .Q20H KELLY Administration Phenytoin 200 mg/ Sodium 54 mls @ 104 mls/hr 02/13/18 10:00 02/16/18 09:40 Chloride IVPB 104 mls/hr Q12 KELLY Administration Valproate Sodium 1,500 mg/ 115 mls @ 92 mls/hr 02/13/18 03:51 02/16/18 09:46 Sodium Chloride IVPB 92 mls/hr Q12 KELLY Administration Norepinephrine Bitartrate 8 mg 500 mls @ 15 mls/hr 02/14/18 13:50 02/16/18 09 :39 / Sodium Chloride IV 15 mcg/min .Q24H PRN 56.25 mls/hr TITRATE PER MD ORDER Administration Protocol 4 MCG/MIN Linezolid 600 mg 02/14/18 22:00 02/16/18 09:52 Zyvox PO 600 mg Q12 KELLY Administration Protocol Pantoprazole Sodium 40 mg 02/14/18 22:00 02/16/18 09:51 Protonix Inj IVP 40 mg Q12 KELLY Administration Phenobarbital 50 mg 02/10/18 18:00 02/16/18 07:58 Phenobarbital Inj IV 50 mg Q6 KELLY Administration - Patient Studies Lab Studies: Lab Studies 02/16/18 02/16/18 02/16/18 Range/Units 12:17 06:00 06:00 WBC (4.5-11.0) 10^3/ul RBC (3.5-6.1) 10^6/uL Hgb (14.0-18.0) g/dL Hct (42.0-52.0) % MCV (80.0-105.0) fl MCH (25.0-35.0) pg MCHC (31.0-37.0) g/dl RDW (11.5-14.5) % Plt Count (120.0-450.0) 10^3/uL MPV (7.0-11.0) fl Gran % (50.0-68.0) % Lymph % (Auto) (22.0-35.0) % [place] % (Auto) (1.0-6.0) % Eos % (Auto) (1.5-5.0) % Baso % (Auto) (0.0-3.0) % Gran # (1.4-6.5) Lymph # (Auto) (1.2-3.4) [place] # (Auto) (0.1-0.6) Eos # (Auto) (0.0-0.7) Baso # (Auto) (0.0-2.0) K/mm3 pCO2 29 L (35-45) mm/Hg pO2 78.0 L (80-100) mm/Hg HCO3 17.2 L (21-28) mmol/L ABG pH 7.38 (7.35-7.45) ABG Total CO2 18.1 L (22-28) mmol.L ABG O2 Saturation 97.9 (95-98) % ABG O2 Content 15.8 (15-23) ML/dl ABG Base Excess -6.8 L (-2.0-3.0) mmol/L ABG Hemoglobin 11.8 (11.7-17.4) g/dL ABG Carboxyhemoglobin 2.3 H (0.5-1.5) % POC ABG HHb (Measured) 2.0 (0-5) % ABG Methemoglobin 0.9 (0.0-3.0) % ABG O2 Capacity 16.1 (16-24) mL/dl Hgb O2 Saturation 94.8 L (95.0-98.0) % FiO2 35.0 % Sodium 143 (132-148) mmol/L Potassium 4.3 (3.6-5.0) mmol/L Chloride 112 H (98-107) mmol/L Carbon Dioxide 24 (21-33) mmol/L Anion Gap 11 (10-20) BUN 28 H (7-21) mg/dL Creatinine 0.8 (0.8-1.5) mg/dl Est GFR ( Amer) > 60 Est GFR (Non-Af Amer) > 60 POC Glucose (mg/dL) 90 (65-110) mg/dL Random Glucose 105 (70-110) mg/dL Calcium 7.6 L (8.4-10.5) mg/dL Magnesium 2.1 (1.7-2.2) mg/dL Total Bilirubin 0.7 (0.2-1.3) mg/dL AST 23 (17-59) U/L ALT 30 (7-56) U/L Alkaline Phosphatase 81 (38-126) U/L Total Protein 4.1 L (5.8-8.3) g/dL Albumin 1.8 L (3.0-4.8) g/dL Globulin 2.3 gm/dL Albumin/Globulin Ratio 0.8 L (1.1-1.8) 02/16/18 02/16/18 02/16/18 Range/Units 06:00 05:50 00:30 WBC 9.8 (4.5-11.0) 10^3/ul RBC 4.22 (3.5-6.1) 10^6/uL Hgb 12.7 L (14.0-18.0) g/dL Hct 39.9 L (42.0-52.0) % MCV 94.5 (80.0-105.0) fl MCH 30.1 (25.0-35.0) pg MCHC 31.8 (31.0-37.0) g/dl RDW 19.9 H (11.5-14.5) % Plt Count 169 (120.0-450.0) 10^3/uL MPV 10.5 (7.0-11.0) fl Gran % 86.9 H (50.0-68.0) % Lymph % (Auto) 7.1 L (22.0-35.0) % [place] % (Auto) 5.8 (1.0-6.0) % Eos % (Auto) 0.1 L (1.5-5.0) % Baso % (Auto) 0.1 (0.0-3.0) % Gran # 8.54 H (1.4-6.5) Lymph # (Auto) 0.7 L (1.2-3.4) [place] # (Auto) 0.6 (0.1-0.6) Eos # (Auto) 0.0 (0.0-0.7) Baso # (Auto) 0.01 (0.0-2.0) K/mm3 pCO2 (35-45) mm/Hg pO2 (80-100) mm/Hg HCO3 (21-28) mmol/L ABG pH (7.35-7.45) ABG Total CO2 (22-28) mmol.L ABG O2 Saturation (95-98) % ABG O2 Content (15-23) ML/dl ABG Base Excess (-2.0-3.0) mmol/L ABG Hemoglobin (11.7-17.4) g/dL ABG Carboxyhemoglobin (0.5-1.5) % POC ABG HHb (Measured) (0-5) % ABG Methemoglobin (0.0-3.0) % ABG O2 Capacity (16-24) mL/dl Hgb O2 Saturation (95.0-98.0) % FiO2 % Sodium (132-148) mmol/L Potassium (3.6-5.0) mmol/L Chloride (98-107) mmol/L Carbon Dioxide (21-33) mmol/L Anion Gap (10-20) BUN (7-21) mg/dL Creatinine (0.8-1.5) mg/dl Est GFR ( Amer) Est GFR (Non-Af Amer) POC Glucose (mg/dL) 100 112 H (65-110) mg/dL Random Glucose (70-110) mg/dL Calcium (8.4-10.5) mg/dL Magnesium (1.7-2.2) mg/dL Total Bilirubin (0.2-1.3) mg/dL AST (17-59) U/L ALT (7-56) U/L Alkaline Phosphatase (38-126) U/L Total Protein (5.8-8.3) g/dL Albumin (3.0-4.8) g/dL Globulin gm/dL Albumin/Globulin Ratio (1.1-1.8) 02/15/18 Range/Units 18:26 WBC (4.5-11.0) 10^3/ul RBC (3.5-6.1) 10^6/uL Hgb (14.0-18.0) g/dL Hct (42.0-52.0) % MCV (80.0-105.0) fl MCH (25.0-35.0) pg MCHC (31.0-37.0) g/dl RDW (11.5-14.5) % Plt Count (120.0-450.0) 10^3/uL MPV (7.0-11.0) fl Gran % (50.0-68.0) % Lymph % (Auto) (22.0-35.0) % [place] % (Auto) (1.0-6.0) % Eos % (Auto) (1.5-5.0) % Baso % (Auto) (0.0-3.0) % Gran # (1.4-6.5) Lymph # (Auto) (1.2-3.4) [place] # (Auto) (0.1-0.6) Eos # (Auto) (0.0-0.7) Baso # (Auto) (0.0-2.0) K/mm3 pCO2 (35-45) mm/Hg pO2 (80-100) mm/Hg HCO3 (21-28) mmol/L ABG pH (7.35-7.45) ABG Total CO2 (22-28) mmol.L ABG O2 Saturation (95-98) % ABG O2 Content (15-23) ML/dl ABG Base Excess (-2.0-3.0) mmol/L ABG Hemoglobin (11.7-17.4) g/dL ABG Carboxyhemoglobin (0.5-1.5) % POC ABG HHb (Measured) (0-5) % ABG Methemoglobin (0.0-3.0) % ABG O2 Capacity (16-24) mL/dl Hgb O2 Saturation (95.0-98.0) % FiO2 % Sodium (132-148) mmol/L Potassium (3.6-5.0) mmol/L Chloride (98-107) mmol/L Carbon Dioxide (21-33) mmol/L Anion Gap (10-20) BUN (7-21) mg/dL Creatinine (0.8-1.5) mg/dl Est GFR ( Amer) Est GFR (Non-Af Amer) POC Glucose (mg/dL) 100 (65-110) mg/dL Random Glucose (70-110) mg/dL Calcium (8.4-10.5) mg/dL Magnesium (1.7-2.2) mg/dL Total Bilirubin (0.2-1.3) mg/dL AST (17-59) U/L ALT (7-56) U/L Alkaline Phosphatase (38-126) U/L Total Protein (5.8-8.3) g/dL Albumin (3.0-4.8) g/dL Globulin gm/dL Albumin/Globulin Ratio (1.1-1.8) Laboratory Results - last 24 hr 02/15/18 02/16/18 02/16/18 18:26 00:30 05:50 WBC RBC Hgb Hct MCV MCH MCHC RDW Plt Count MPV Gran % Lymph % (Auto) [place] % (Auto) Eos % (Auto) Baso % (Auto) Gran # Lymph # (Auto) [place] # (Auto) Eos # (Auto) Baso # (Auto) pCO2 pO2 HCO3 ABG pH ABG Total CO2 ABG O2 Saturation ABG O2 Content ABG Base Excess ABG Hemoglobin ABG Carboxyhemoglobin POC ABG HHb (Measured) ABG Methemoglobin ABG O2 Capacity Hgb O2 Saturation FiO2 Sodium Potassium Chloride Carbon Dioxide Anion Gap BUN Creatinine Est GFR ( Amer) Est GFR (Non-Af Amer) POC Glucose (mg/dL) 100 112 H 100 Random Glucose Calcium Magnesium Total Bilirubin AST ALT Alkaline Phosphatase Total Protein Albumin Globulin Albumin/Globulin Ratio 02/16/18 02/16/18 02/16/18 06:00 06:00 06:00 WBC 9.8 RBC 4.22 Hgb 12.7 L Hct 39.9 L MCV 94.5 MCH 30.1 MCHC 31.8 RDW 19.9 H Plt Count 169 MPV 10.5 Gran % 86.9 H Lymph % (Auto) 7.1 L [place] % (Auto) 5.8 Eos % (Auto) 0.1 L Baso % (Auto) 0.1 Gran # 8.54 H Lymph # (Auto) 0.7 L [place] # (Auto) 0.6 Eos # (Auto) 0.0 Baso # (Auto) 0.01 pCO2 29 L pO2 78.0 L HCO3 17.2 L ABG pH 7.38 ABG Total CO2 18.1 L ABG O2 Saturation 97.9 ABG O2 Content 15.8 ABG Base Excess -6.8 L ABG Hemoglobin 11.8 ABG Carboxyhemoglobin 2.3 H POC ABG HHb (Measured) 2.0 ABG Methemoglobin 0.9 ABG O2 Capacity 16.1 Hgb O2 Saturation 94.8 L FiO2 35.0 Sodium 143 Potassium 4.3 Chloride 112 H Carbon Dioxide 24 Anion Gap 11 BUN 28 H Creatinine 0.8 Est GFR ( Amer) > 60 Est GFR (Non-Af Amer) > 60 POC Glucose (mg/dL) Random Glucose 105 Calcium 7.6 L Magnesium 2.1 Total Bilirubin 0.7 AST 23 ALT 30 Alkaline Phosphatase 81 Total Protein 4.1 L Albumin 1.8 L Globulin 2.3 Albumin/Globulin Ratio 0.8 L 02/16/18 12:17 WBC RBC Hgb Hct MCV MCH MCHC RDW Plt Count MPV Gran % Lymph % (Auto) [place] % (Auto) Eos % (Auto) Baso % (Auto) Gran # Lymph # (Auto) [place] # (Auto) Eos # (Auto) Baso # (Auto) pCO2 pO2 HCO3 ABG pH ABG Total CO2 ABG O2 Saturation ABG O2 Content ABG Base Excess ABG Hemoglobin ABG Carboxyhemoglobin POC ABG HHb (Measured) ABG Methemoglobin ABG O2 Capacity Hgb O2 Saturation FiO2 Sodium Potassium Chloride Carbon Dioxide Anion Gap BUN Creatinine Est GFR ( Amer) Est GFR (Non-Af Amer) POC Glucose (mg/dL) 90 Random Glucose Calcium Magnesium Total Bilirubin AST ALT Alkaline Phosphatase Total Protein Albumin Globulin Albumin/Globulin Ratio Assessment/Plan - Assessment and Plan (Free Text) Plan: Patient seen and examined on rounds with resident, agree with note with following additions/exceptions: cedric is 67yo male with PMHx HTN, paroxysmal A-fib (on Eliquis), cardiomyopathy (s/p AICD), recent lower extremity cellulitis growing MRSA and pseudomonas, and ETOH abuse being admitted to the ICU s/p cardiac arrest s/p ROSC s/p hypothermic protocol. Currently intubated, off sedation. Neurology following. Patient sustained extensive anoxic brain injury, brain flow done, no flow Currently on vasopressor support. Cardiology following. Patient on Valproate, Keppra, Versed, Ativan. Pt is DNR/DNI Afib Cardiomyopathy s/p AICD s/p Cardiac Arrest s/p ROSC Status Epilpeticus Anoxic brain injury PNA Pulm edema Recommend: - cont with vent support, low tidal vol ventilation - Abx as per ID, follow up cultures - Vasopressor support - follow up cardiology - goal MAP 65 - monitor HH - FS control, maintain euthermia - AEDs as per neurology - EEG follow up - brain flow read follow up - palliative care follow up - GI ppx - DVT ppx, HSQ - Monitor in MICU - terminal extubation tomorrow Overall prognosis extremely poor DNR/DNI Critical care time 35 minutes
[2018-02-16 07:06] LABS: ALB/GLOB RATIO 0.8 (1.1-1.8); ALBUMIN 1.8 g/dL (3.0-4.8); ALT/SGPT 30 U/L (7-56); AST/SGOT 23 U/L (17-59); BLOOD UREA NITROGEN 28 mg/dL (7-21); CALCIUM 7.6 mg/dL (8.4-10.5); GFR AFRICAN-AMERICAN > 60; GFR NON-AFRICAN AMERICAN > 60
--- NOTE | 2018-02-16 07:41 | CP.PCM.PN ---
Subjective - Date & Time of Evaluation Date of Evaluation: 02/16/18 Time of Evaluation: 07:00 - Subjective Subjective: Stable in ICU. Chart reviewed. No improvement in neuro status last 24 hrs. Family debating terminal extubation issue. I spoke with his bedside nurse. V/S noted. Int. V. Paced. 108/59 PE: Lungs: rhonchi Cor: S1S2 Abd.: soft Ext.: + edema and discoloration Neuro.: sedated, coma I/O= 2737/350 recorded Labs and ABGs noted. Stool + OB BC X2 NG at 5 days CXR noted: not read yet, CHF/effusions, looks worse Objective - Vital Signs/Intake and Output Vital Signs (last 24 hours): Temp Pulse Resp BP Pulse Ox 98.4 F 79 14 108/59 L 98 02/16/18 04:00 02/16/18 04:00 02/15/18 07:23 02/16/18 04:00 02/16/18 04:00 Intake and Output: 02/16/18 02/16/18 06:59 18:59 Intake Total 115 Balance 115 - Medications Medications: Current Medications Artificial Tears (Artificial Tears Opht Oint) 0 gm OU Q6 KELLY Last Admin: 02/16/18 06:15 Dose: 2 applic Doxycycline Hyclate (Doryx) 100 mg NG Q12 KELLY PRN Reason: Protocol Last Admin: 02/15/18 22:32 Dose: 100 mg Hydrocortisone Sodium Succinate (Solu-Cortef) 25 mg IVP Q8 KELLY Last Admin: 02/16/18 06:40 Dose: 25 mg Propofol (Diprivan) 1,000 mg in 100 mls @ 3 mls/hr IV .Q24H PRN; Protocol; 5 MCG/KG/MIN PRN Reason: TITRATE PER MD ORDER Last Admin: 02/16/18 03:03 Dose: 10 mcg/kg/min, 6 mls/hr Vasopressin 20 units/ Sodium (Chloride) 101 mls @ 9.09 mls/hr IV .Q11H7M KELLY; 0.03 U/MIN PRN Reason: Protocol Last Admin: 02/15/18 23:43 Dose: Not Given Midazolam 100 mg/100ml in NS (Midazolam 100 Mg/100ml In Ns) 100 mg in 100 mls @ 1 mls/hr IV .Q24H PRN; Protocol; 1 MG/HR PRN Reason: Agitation Last Admin: 02/15/18 00:12 Dose: 3 mg/hr, 3 mls/hr Levetiracetam 1,500 mg/ Sodium (Chloride) 115 mls @ 460 mls/hr IV Q12H KELLY Last Admin: 02/16/18 06:24 Dose: 460 mls/hr Aztreonam (Azactam 1 Gm) 100 mls @ 100 mls/hr IVPB Q8 KELLY PRN Reason: Protocol Stop: 02/17/18 11:31 Last Admin: 02/16/18 06:13 Dose: 100 mls/hr Dextrose/Sodium Chloride (Dextrose 5%/0.9% Ns 1000 Ml) 1,000 mls @ 50 mls/hr IV .Q20H KELLY Last Admin: 02/15/18 18:21 Dose: 50 mls/hr Phenytoin 200 mg/ Sodium (Chloride) 54 mls @ 104 mls/hr IVPB Q12 KELLY Last Admin: 02/15/18 21:45 Dose: 104 mls/hr Valproate Sodium 1,500 mg/ (Sodium Chloride) 115 mls @ 92 mls/hr IVPB Q12 KELLY Last Admin: 02/15/18 22:30 Dose: 92 mls/hr Norepinephrine Bitartrate 8 mg (/ Sodium Chloride) 500 mls @ 15 mls/hr IV .Q24H PRN; Protocol; 4 MCG/MIN PRN Reason: TITRATE PER MD ORDER Last Titration: 02/16/18 03:07 Dose: 15 mcg/min, 56.25 mls/hr Linezolid (Zyvox) 600 mg PO Q12 KELLY PRN Reason: Protocol Last Admin: 02/15/18 22:32 Dose: 600 mg Pantoprazole Sodium (Protonix Inj) 40 mg IVP Q12 KELLY Last Admin: 02/15/18 21:28 Dose: 40 mg Phenobarbital (Phenobarbital Inj) 50 mg IV Q6 KELLY Last Admin: 02/16/18 01:01 Dose: 50 mg - Labs Labs: 02/16/18 06:00 02/16/18 06:00 PT 12.0 SECONDS (9.4-12.5) 02/12/18 11:20 INR 1.04 (0.93-1.08) 02/12/18 11:20 APTT 31.3 Seconds (25.1-36.5) 02/12/18 11:20 Assessment and Plan - Assessment and Plan (Free Text) Assessment: S/P cardiac arrest at home with prolonged down time Anoxic encephalopathy with seizures Acute on chronic kidney disease CCM, severe, etoh related Chronic CHF Bilat. LE cellulitis and non-healing wound LLE ICD/NSVT Prostate cancer, seed implants Right TKR Chronic ETOH, recently stopped 12/25 Former Smoker Plan: IV Lasix. Continue support. DNR/DNI noted. Family discussing terminal extubation. As per Neuro., Intensivists, Dr. Mccormack, GI, Palliative Care, ID Monitor: labs, I/O, sats., neuro status, etc. Will follow Poor prognosis for neuro recovery noted.
--- NOTE | 2018-02-16 08:38 | RAD ---
HISTORY: intubated COMPARISON: 02/15/2018 FINDINGS: LUNGS: There is new complete opacification of the left lung. There is a hazy infiltrate in the right lower lobe. Central lines and tubes unchanged PLEURA: No significant pleural effusion identified, no pneumothorax apparent. CARDIOVASCULAR: Normal. OSSEOUS STRUCTURES: No significant abnormalities. VISUALIZED UPPER ABDOMEN: Normal. OTHER FINDINGS: None. IMPRESSION: There is new complete opacification of the left lung. There is a hazy infiltrate in the right lower lobe. Central lines and tubes unchanged
[2018-02-16 09:19] VITALS: O2SAT 98
[2018-02-16] MEDS: Midazolam 100 mg/100ml in NS 100 MG/100 ML SOL IV PRN (09:44)
[2018-02-16] MEDS: Valproate 1,500 MG in Sodium Chloride 0.9% 100 ML IVPB SCH (09:46)
--- NOTE | 2018-02-16 12:38 | CP.PCM.PN ---
Subjective - Date & Time of Evaluation Date of Evaluation: 02/16/18 Time of Evaluation: 09:35 - Subjective Subjective: Still on the ventilator, no fevers. Objective - Vital Signs/Intake and Output Vital Signs (last 24 hours): Temp Pulse Resp BP Pulse Ox 98.4 F 79 14 108/59 L 98 02/16/18 04:00 02/16/18 04:00 02/15/18 07:23 02/16/18 04:00 02/16/18 04:00 Intake and Output: 02/16/18 02/16/18 06:59 18:59 Intake Total 115 Balance 115 - Medications Medications: Current Medications Artificial Tears (Artificial Tears Opht Oint) 0 gm OU Q6 KELLY Last Admin: 02/16/18 06:15 Dose: 2 applic Doxycycline Hyclate (Doryx) 100 mg NG Q12 KELLY PRN Reason: Protocol Last Admin: 02/15/18 22:32 Dose: 100 mg Hydrocortisone Sodium Succinate (Solu-Cortef) 25 mg IVP Q8 KELLY Last Admin: 02/16/18 06:40 Dose: 25 mg Propofol (Diprivan) 1,000 mg in 100 mls @ 3 mls/hr IV .Q24H PRN; Protocol; 5 MCG/KG/MIN PRN Reason: TITRATE PER MD ORDER Last Admin: 02/16/18 03:03 Dose: 10 mcg/kg/min, 6 mls/hr Vasopressin 20 units/ Sodium (Chloride) 101 mls @ 9.09 mls/hr IV .Q11H7M KELLY; 0.03 U/MIN PRN Reason: Protocol Last Admin: 02/15/18 23:43 Dose: Not Given Midazolam 100 mg/100ml in NS (Midazolam 100 Mg/100ml In Ns) 100 mg in 100 mls @ 1 mls/hr IV .Q24H PRN; Protocol; 1 MG/HR PRN Reason: Agitation Last Admin: 02/15/18 00:12 Dose: 3 mg/hr, 3 mls/hr Levetiracetam 1,500 mg/ Sodium (Chloride) 115 mls @ 460 mls/hr IV Q12H KELLY Last Admin: 02/16/18 06:24 Dose: 460 mls/hr Aztreonam (Azactam 1 Gm) 100 mls @ 100 mls/hr IVPB Q8 KELLY PRN Reason: Protocol Stop: 02/17/18 11:31 Last Admin: 02/16/18 06:13 Dose: 100 mls/hr Dextrose/Sodium Chloride (Dextrose 5%/0.9% Ns 1000 Ml) 1,000 mls @ 50 mls/hr IV .Q20H KELLY Last Admin: 02/15/18 18:21 Dose: 50 mls/hr Phenytoin 200 mg/ Sodium (Chloride) 54 mls @ 104 mls/hr IVPB Q12 KELLY Last Admin: 02/15/18 21:45 Dose: 104 mls/hr Valproate Sodium 1,500 mg/ (Sodium Chloride) 115 mls @ 92 mls/hr IVPB Q12 KELLY Last Admin: 02/15/18 22:30 Dose: 92 mls/hr Norepinephrine Bitartrate 8 mg (/ Sodium Chloride) 500 mls @ 15 mls/hr IV .Q24H PRN; Protocol; 4 MCG/MIN PRN Reason: TITRATE PER MD ORDER Last Titration: 02/16/18 03:07 Dose: 15 mcg/min, 56.25 mls/hr Linezolid (Zyvox) 600 mg PO Q12 KELLY PRN Reason: Protocol Last Admin: 02/15/18 22:32 Dose: 600 mg Pantoprazole Sodium (Protonix Inj) 40 mg IVP Q12 [facility] Last Admin: 02/15/18 21:28 Dose: 40 mg Phenobarbital (Phenobarbital Inj) 50 mg IV Q6 [facility] Last Admin: 02/16/18 01:01 Dose: 50 mg - Labs Labs: 02/16/18 06:00 02/16/18 06:00 PT 12.0 SECONDS (9.4-12.5) 02/12/18 11:20 INR 1.04 (0.93-1.08) 02/12/18 11:20 APTT 31.3 Seconds (25.1-36.5) 02/12/18 11:20 - Constitutional Appears: Chronically Ill, Other (intubated) - Head Exam Head Exam: NORMAL INSPECTION - ENT Exam Additional comments: ET tube in place Assessment and Plan - Assessment and Plan (Free Text) Plan: Assessment Systemic Inflammatory response syndrome with hypotension after cardiac arrest, with ventilator-dependent respiratory failure and status epilepticus, consider severe sepsis / septic on top of cardiogenic shock from right sided HCAP / aspiration pneumonia on top of acute on chronic CHF history left leg skin and skin structure infection, growing Roultella and MSSA, clinically improving history of right leg skin and skin structure infection with Pseudomonas and MRSA HTN COPD S/P pacemaker placement chronic atrial fibrillation on anticoagulation S/P right knee replacement chronic CHF with dilated cardiomyopathy Plan on Zyvox day 9 and Azactam day 7 and Doxycycline day 7 and will follow up final culture results (so far negative) - will consider discontinuing antibiotics in the next 24 hours overall prognosis remains poor and patient is for possible terminal extubation tomorrow as per ICU team
[2018-02-16 12:39] VITALS: BP 102/71
[2018-02-16] MEDS: Dextrose 5%/0.9% NS 1,000 ML IV SCH (14:02)
--- NOTE | 2018-02-16 18:14 | CP.PCM.PRO ---
Pronouncement of Note - Clinical Findings Physical Exam: No Response Verbal/Painful Stimuli, Absent Peripheral Pulses{ Carotid & Femoral}, Absent Heart & Breath Sounds, No Pupillary Light Reflex, No Corneal Reflex, Pupils Fixed & Dilated, Absence of Vital Signs - Pronouncement Time Time of Pronouncement of : 17:42 - Notifications Pronouncement Notifications: Family Notified, Atending Notified Housekeeping/Laundry Supervisor Notified: No (More than 24 hours of admission) - Autopsy Autopsy Requested: No [place] [id number] Additional Comments: Rejected by organ donation due to Hx prostate cancer
[2018-02-16 18:33] VITALS: PULSE 60; RESP 9; TEMP 98.6
--- NOTE | 2018-02-17 06:04 | NM ---
EXAM: NM Brain Imaging W Vasc Flow Only CLINICAL HISTORY: 67 years old, male; Condition or disease; Other: ? Brain ; Additional info: Seizure? TECHNIQUE: Frontal images of the head and neck were obtained. Initial flow images 30 seconds per frame followed by static planar imaging. 15.6 mCi of technetium 99m labeled pertechnetate was administered intravenously. COMPARISON: CT - HEAD W/O CONTRAST 2018-02-08 15:15 FINDINGS: Examination reveals radionucleotide activity in the intracranial venous sinuses early in the examination indicating presence of blood flow to the brain. IMPRESSION: Examination reveals radionucleotide activity in the intracranial venous sinuses early in the examination indicating presence of blood flow to the brain.
--- NOTE | 2018-02-17 08:53 | PN ---
DATE: 04/17/2018 SUBJECTIVE: This patient was seen and evaluated earlier. Discussed with resident. Patient remains on vent. Overall, the patient is encephalopathy. The patient did have a family discussion and planned for a terminal extubation. We will continue comfort care. We will . Wendi Garza MD
--- NOTE | 2018-02-17 09:20 | PN ---
DATE: 02/16/2018 SUBJECTIVE: The patient is 67 years old, remains intubated, unresponsive. Currently on Levophed 15 mcg. OBJECTIVE: VITAL SIGNS: He is afebrile, pulse 84, respirations 14, and blood pressure 104/71. LUNGS: Bilateral fair airflow. Soft crackling at the lung region. HEART: S1, S2 audible. ABDOMEN: Soft, obese, and nontender. No rebound. No guarding. NEUROLOGIC: He is responsive. EXTREMITIES: Bilateral legs, +4 edema. LABORATORY EXAM: WBC is 9.8, hemoglobin 12.7, hematocrit 39, and platelets 169. PT 12, INR 1.04. Chemistry: Sodium 143, potassium 4.3, chloride 112, CO2 of 24. BUN 28, creatinine 0.8. Blood sugar of 105. ASSESSMENT: 1. Respiratory failure. 2. Status post cardiac arrest. 3. Status post anoxic encephalopathy. 4. Status post status epilepticus, currently controlled with phenytoin, phenobarbital, and Keppra. 5. Sepsis. 6. Cardiogenic shock. 7. Aspiration pneumonia. 8. Bilateral leg edema and erythema. 9. Status post pacemaker defibrillator. 10. Chronic atrial fibrillation. 11. Bilateral knee ablations. PLAN: At this point, we will continue current medication and supportive care, probably terminal extubation in the a.m. Clif Lala MD
--- NOTE | 2018-02-18 08:25 | DS ---
HISTORY OF PRESENT ILLNESS: The patient is a 67-year-old, who came to Emergency Room on 02/07/2018 after he collapsed in front of his house. He was down for 20 minutes until paramedics reached. They resuscitated him and intubated in the field, and was brought to the ER, and he was admitted in the ICU. The patient was in cardiogenic shock. He also suffered anoxic encephalopathy. He had status epilepticus. Neurology consult was obtained, so was the Cardiology by Dr. Meyer. The patient was on phenobarbital, phenytoin and Keppra. The patient was septic also. He was given antibiotics. He developed pneumonia. So the patient remained on ventilator. He was given IV antibiotic. He was on double therapy for pressors. I had back and forth discussion with the family, with the who initially made him DNR, since the prognosis was grim, finally she agreed for terminal extubation today, but the patient last night. DISCHARGE DIAGNOSES: 1. Status post cardiac arrest. 2. Anoxic encephalopathy. 3. Chronic atrial fibrillation, status post pacemaker placement. 4. Hypertension. Clif Lala MD
--- NOTE | 2018-02-18 13:35 | PQF ---
CHF Acuity and Type 360eMD Congestive Heart Failure is documented in the Medical Record. Please document the type and acuity (in cludes probable or suspected) Such as: Type: -- Systolic -- Diastolic -- Combined -- Other, please specify Acuity: -- Acute -- Chronic -- Acute on chronic -- Other, please specify Also please document the underlying cause of the CHF (includes probable or suspected) The patient's Clinical Indicators include: ACUTE/CHRONIC CHF =NEED TYPE Query created by: Lacey Falk 02/18/2018@13:35 Electronically signed by: Clif Lala
--- NOTE | 2018-02-18 13:39 | PQF CHF ---
This form is a permanent part of the medical record Doctor, The ID doctors with indication of acute/chronic CHF. Please specify type= systolic or diastolic or combined. Clarification of your documentation is requested to better reflect the severity of illness and intensity of treatment of your patient. Indicators present [x] Diagnosis of CHF and/or history of CHF [x] BNP > 200 [x] Imaging Finding of Pulmonary Edema /Pleural Effusions [] Fluid/Volume Overload [] Pitting edema [] Ejection Fraction < 40% (Indicative of Systolic Heart Failure) [] Ejection Fraction > 40% (Indicative of Diastolic Heart Failure) [] Dyspnea / Orthopenea / Paroxysmal Nocturnal Dyspnea [] Other: Location in the medical record that reflects the above clinical findings: [] Treatment Provided: [] PHYSICIAN'S RESPONSE Based on your medical judgment of the clinical indicators outlined above, are you treating this patient for a known or suspected: [] Acute CHF [] Systolic [] Diastolic [] Combined [] Chronic CHF [] Systolic [] Diastolic [] Combined [] Acute on Chronic CHF []Systolic [] Diastolic [] Combined [] CHF due hypertension [] Acute systolic []Chronic systolic [] Acute/ chronic systolic [] Other, please indicate: [] [] If Unable to Determine, please check the box, sign and date. Present On Admission (POA) Indicator: [] Present at the time of admission [] Not present at the time of admission [] Clinically Undetermined In responding to this query, please exercise your independent professional judgment. The fact that a question is asked does not imply that any particular answer is desired or expected. Thank you for your clarification on this documentation. If you have any questions please call:[ ] * Thank you, [ ]adwoa PENDLETONcoal trimmer machine operator JOLENE
== END 2018-02-16 17:30 | DRG 870 ==
LOC: ED 19:51 → ERH 21:09 → CCU 22:52
PROVIDERS: ADMIT Internal Medicine; ATTEND Internal Medicine
PROC: 05HM33Z Insertion of Infusion Device into Right Internal Jugular Vein, Percutaneous Approach (ICD-10-PCS; principal; 2018-02-07)
PROC: B543ZZA Ultrasonography of Right Jugular Veins, Guidance (ICD-10-PCS; 2018-02-07)
PROC: 3E043XZ Introduction of Vasopressor into Central Vein, Percutaneous Approach (ICD-10-PCS; 2018-02-07)
PROC: 5A1955Z Respiratory Ventilation, Greater than 96 Consecutive Hours (ICD-10-PCS; 2018-02-08)
DX: A41.9 Sepsis, unspecified organism (principal); J96.90 Respiratory failure, unspecified, unspecified whether with hypoxia or hypercapnia; J69.0 Pneumonitis due to inhalation of food and vomit; R65.21 Severe sepsis with septic shock; K27.4 Chronic or unspecified peptic ulcer, site unspecified, with hemorrhage; G93.1 Anoxic brain damage, not elsewhere classified; I13.0 Hypertensive heart and chronic kidney disease with heart failure and stage 1 through stage 4 chronic kidney disease, or unspecified chronic kidney disease; E87.1 Hypo-osmolality and hyponatremia; I42.0 Dilated cardiomyopathy; I47.2 Ventricular tachycardia; L03.115 Cellulitis of right lower limb; L03.116 Cellulitis of left lower limb; N17.9 Acute kidney failure, unspecified; G40.101 Localization-related (focal) (partial) symptomatic epilepsy and epileptic syndromes with simple partial seizures, not intractable, with status epilepticus; Z99.11 Dependence on respirator [ventilator] status; I50.9 Heart failure, unspecified; R57.0 Cardiogenic shock; I48.2 Chronic atrial fibrillation; J44.9 Chronic obstructive pulmonary disease, unspecified; N18.9 Chronic kidney disease, unspecified; I25.10 Atherosclerotic heart disease of native coronary artery without angina pectoris; F10.21 Alcohol dependence, in remission; K74.60 Unspecified cirrhosis of liver; Z66 Do not resuscitate; I73.9 Peripheral vascular disease, unspecified; R40.2430 Glasgow coma scale score 3-8, unspecified time; D64.9 Anemia, unspecified; Y95 Nosocomial condition; Z96.651 Presence of right artificial knee joint; Z95.810 Presence of automatic (implantable) cardiac defibrillator; Z79.01 Long term (current) use of anticoagulants; Z95.0 Presence of cardiac pacemaker; Z86.14 Personal history of Methicillin resistant Staphylococcus aureus infection; Z91.19 Patient's noncompliance with other medical treatment and regimen; Z87.891 Personal history of nicotine dependence; Z88.0 Allergy status to penicillin; Z85.46 Personal history of malignant neoplasm of prostate